=== PATIENT | female | born 1945 | race Caucasian/White ===

== ENCOUNTER → 2019-03-30 06:28 | Outpatient (CLI) | payer MEDICARE, SELFPAY ==
--- NOTE | 2019-03-30 06:33 | MRI_ITS ---
STUDY: MRA OF THE HEAD WITHOUT CONTRAST REASON FOR EXAM: Female, 74 years old. TECHNIQUE: 3-D [id number] (TOF) imaging was performed with MIPs. The study was performed unenhanced. COMPARISON: Recent MRI of the head obtained on 03/30/2019 FINDINGS: Normal bilateral petrous carotid arteries. Normal right cavernous carotid artery with a normal supraclinoid bifurcation. Normal left cavernous carotid artery with a normal supraclinoid bifurcation. Normal right A1 segments of the anterior cerebral artery. Normal left A1 segments of the anterior cerebral artery. Normal intact anterior communicating artery (ACOM). Normal bilateral A2 segments of the anterior cerebral arteries. Normal right M1 and M2 segments of the middle cerebral arteries, with a normal M1 bifurcation. Normal left M1 and M2 segments of the middle cerebral arteries, with a normal M1 bifurcation. Normal right posterior communicating artery (PCOM). Normal left posterior communicating artery (PCOM). Normal bilateral vertebral arteries. Normal basilar artery with a normal basilar bifurcation. The visualized bilateral superior cerebellar (SCA) arteries are normal. Normal bilateral P1, P2 and visualized P3 segments of the posterior cerebral arteries. There is no demonstrated aneurysm of the [place]. There is no major vessel occlusion or hemodynamically significant stenosis. There is no demonstrated abnormality of the visualized brain. MRI/MRA Head ONLY without Contrast IMPRESSION: Normal MRA of the head Electronically Signed: Saman Osuna, at 10:08 EDT Tel , Service support ,
--- NOTE | 2019-03-30 06:33 | MRI_ITS ---
STUDY: MRI CERVICAL SPINE WITHOUT CONTRAST REASON FOR EXAM: Female, 74 years old. Right-sided neck and shoulder pain/radiculopathy TECHNIQUE: Standardized fat and water weighted pulse sequences were obtained in the sagittal and axial planes. COMPARISON: None FINDINGS: Normal foramen magnum and brainstem-cervical cord junction. Normal craniovertebral junction. Normal anterior atlantoaxial articulation. Normal odontoid process. Normal cervical lordosis. Normal vertebral bodies and posterior osseous elements. C2-3: Normal endplates. Normal disc height, signal and morphology. Normal central canal and intervertebral neural foramina. C3-4: Normal endplates. Normal disc height, signal and morphology. Normal central canal and intervertebral neural foramina. C4-5: Normal endplates. Normal disc height, signal and morphology. Normal central canal and intervertebral neural foramina. C5-6: Normal endplates. Normal disc height, signal and morphology. Normal central canal and uncinate spondylosis and narrowing intervertebral neural foramina. C6-7: Normal endplates. Normal disc height, signal and morphology. Normal central canal and intervertebral neural foramina. C7-T1: Normal endplates. Normal disc height, signal and morphology. Normal central canal and intervertebral neural foramina. Normal cervical cord. Normal visualized soft tissue structures. IMPRESSION: Mild to moderate narrowing of the neural foramina bilaterally at C5-6 otherwise Normal unenhanced MR examination of the cervical spine. Electronically Signed: Pete Gongora MD at 19:25 EDT , Service support , MRI/Spine Cervical (Routine)
--- NOTE | 2019-03-30 06:33 | MRI_ITS ---
STUDY: MRI BRAIN WITH AND WITHOUT CONTRAST REASON FOR EXAM: Female, 74 years old. TECHNIQUE: Standardized multiplanar fat and water weighted pulse sequences were obtained. IV Dotarem 19 was administered for the contrast portion of the examination. COMPARISON: None. FINDINGS: The diffusion weighted axial images and ADC map images of the head show no evidence of restricted diffusion. The keke, medulla and midbrain and cerebellum appear to be normal. The ventricles and sulci are normal in size and shape. The cerebral hemispheres appear to be normal.The basal ganglia appear to be normal. No enhancing masses or lesions are seen. No evidence of a Chiari I malformation is identified. The V4 segments of the vertebral artery, the basilar artery, the posterior cerebral arteries, the cavernous and supraclinoid carotid arteries, and the M1 segments of the middle cerebral arteries are all normal The orbits including the optic nerves and optic chiasm appear normal. There is a 7.2 mm enhancing lesion seen in the right hand being consistent adjacent to the cisternal segment of the right 5th cranial nerve. This enhancing lesion is of uncertain etiology and could represent residual fibrosis from prior surgery or a residual meningioma surrounding the right 5th cranial nerve. The cisternal and intracanalicular portions of the right and left 7th and 8th cranial nerves are visualized and appear to be normal with no enhancing lesions seen. The cochlea vestibule and semicircular canals have normal T2 signal. The auditory axis including the ventral and dorsal cochlear nuclei, the trapezoid body, the lateral lemniscus, the inferior colliculus, the medial geniculate body, and the superior temporal gyri (Brodmann area 41,42) are all normal. The pituitary and pituitary infundibulum appear to be normal. The patient appears to have had a posterior right temporal craniotomy, with partial resection of the posterior right mastoid. The frontal, ethmoid, maxillary, and sphenoid sinuses are normal. The mastoid air cells are normal. MRI/Brain W/WO Contrast IMPRESSION: Status post right temporal craniotomy with an enhancing 7 mm lesion in the right ambient cistern adjacent to the cisternal segment of the right trigeminal nerve. Residual epidural fibrosis or a meningioma in this location could give this appearance.. Electronically Signed: Saman Osuna, at 9:33 EDT Tel , Service support ,
[2019-03-30 06:55] LABS: CREATININE FINGERSTICK 0.7 mg/dL (0.55-1.02); EGFR FINGERSTICK > 60.0000 mL/min (>60)
== END ==
PROVIDERS: Family Provider Family Medicine; PCP Family Medicine; Referring Provider Psychiatry & Neurology Neurology; Visit Provider Psychiatry & Neurology Neurology
DX: D32.9 Benign neoplasm of meninges, unspecified (principal); M54.12 Radiculopathy, cervical region; G50.0 Trigeminal neuralgia
CPT/HCPCS: 70544; 70553; 72141; A9575

== ENCOUNTER → 2019-12-06 11:04 | Outpatient (CLI) | payer MEDICARE, SELFPAY ==
--- NOTE | 2019-12-06 11:09 | RAD_ITS ---
STUDY: X-RAY - LUMBAR SPINE REASON FOR EXAM: Female, 74 years old. Back pain TECHNIQUE: 3 view(s) of the lumbar spine were obtained. COMPARISON: None FINDINGS: There is no evidence of fracture or dislocation in the lumbar spine. The vertebral body heights are well-maintained. There are mild multilevel degenerative changes with facet hypertrophy and disc space narrowing. RAD/Lumbar Spine 2 or 3 Views IMPRESSION: No fracture or dislocation in the lumbar spine. Mild degenerative change. Electronically Signed: Albert Izquierdo, at 17:03 EDT Tel , Service support ,
== END ==
PROVIDERS: PCP Family Medicine; Referring Provider Anesthesiology Pain Medicine; Visit Provider Anesthesiology Pain Medicine
DX: M54.9 Dorsalgia, unspecified (principal)
CPT/HCPCS: 72100

== ENCOUNTER 2020-05-13 10:00 | Outpatient (RCR) | payer MEDICARE, SELFPAY ==
--- NOTE | 2020-04-08 12:29 | HP.PTEVAL ---
Patient's Visit Information CHRIS OREILLY is a 75 year old F referred to Physical Therapy by Dr. Princess Yadav MD with a diagnosis of BACK PAIN AND LEG PAIN. Date of Evaluation: 04/08/20 Physical Therapist: Jeff Purdy, PT, Cert MDT, OCS - Visit Plan Frequency: 2x /Week Duration: 4 Weeks Plan: PT INTERVENTIONS DLS ,POSTURAL EX'S,BLE STRENGTHENING-HIP/QUADS/HAMS,FUNCTIONAL STRENGTHNING - Subjective This 75 y/o female presents to phsical therapy with back and leg pain. 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 Patient developed weakness and pain. Patient has had injection 2weeks. Patient located symmtrical lumbar pain with occassional leg pain. Aggraveting factors factors walking and standing affects endurance and function with ADLS.Alleviating factors sitting/resting. Patient symptoms better with rest. Denies paratghesia/tingling -. Bowel/bladder -. Coughing/sneexing. Occassional burning in feet.Patient seen DR Siddiqui for jaw. Patient symptoms afffects walking,standing and ADLS'. Patient symptoms affects QOL.MEDS : [employer]. SOCIAL:. VOCATION: retired - Objective POSTURE: rounded shoulders head foward ,mild foward posture. NEURO: denies parathesia/tingling,reflexes L3-4,L4-L5 ,L5 S1 1/3. SYMMTRIES: alighn. PALPTION: tender LS. MMT: 4-/5 quads/hams ,hip flexion 3+/5 ,abd 3+/5,ankle 5/5. LUMBAR ROM: flexiion min loss,extension mod loss,side glides min loss. FLEXABLITY: hamd min loss - Special Tests L/S Slump test left side: Negative L/S Slump test right side: Negative L/S Left Straight Leg Raise: Negative L/S Right Straight Leg Raise: Negative Lumbar Standing: Flexion - Mechanical Response: No effect Lumbar Standing: Flexion - Symptoms During Testing: No effect Lumbar Standing: Flexion - Symptoms After Testing: No effect Lumbar Standing: Extension - Mechanical Response: No effect Lumbar Standing: Extension - Symptoms During Testing: Increases Lumbar Standing: Extension - Symptoms After Testing: No worse Lumbar Standing: Right Side Glides - Mechanical Response: No effect Lumbar Standing: Right Side [place] - Symptoms During Testing: No effect Lumbar Standing: Right Side [place] - Symptoms After Testing: No effect Lumbar Standing: Left Side [place] - Mechanical Response: No effect Lumbar Standing: Left Side [place] - Symptoms During Testing: No effect Lumbar Standing: Left Side [place] - Symptoms After Testing: No effect - Goals Goal 1:: I with HEP Goal Time Frame: 4-6 Weeks Goal 2:: I with posture for ADLS 80 % of the time. Goal Time Frame: 4-6 Weeks Goal 3:: Patient decrease lumbar pain by 50% or > to improve QOL. Goal Time Frame: 4-6 Weeks Goal 4:: Patient to improve lubar ROM for function of recovery Goal Time Frame: 4-6 Weeks Goal 5:: Patient to increase strength of hip 4-/5 to improve gait and staning Goal Time Frame: 4-6 Weeks Goal 6:: Patient to improve back owestry by 5 points or > to inmprove QOL. Goal Time Frame: 4-6 Weeks - Rehabilitation Potential Physical Therapy Diagnosis: This patient developed low back pain with weakness spinal drain affects walking and standing with weakness in legs affects ADL's and housework tasks thus benifit from skilled PT Rehabilitation Potential: Good - Anticipated Interventions Patient/Client Instruction: Educate patient on: Condition, Plan of Care For the Purpose of:: To decrease pain, To increase ROM, To improve muscle performance and motor function, To improve ability to perform ADL's, To improve performance and independence with ADL's, To improve ability of physical actions for home/community/work/leisure, To improve health of tissue, To decrease soft tissue restriction, To increase flexibility/ROM, To reduce risk of recurrence, To improve ability to perform tasks related to life management Therapeutic Exercise to Include: Strength training, Endurance training, Postural training, Flexibilty training, Dynamic Lumbar Stabilization Comment: HIP/KNEES For the Purpose of:: To decrease pain, To increase ROM, To improve muscle performance and motor function, To increase tolerance to activity/condition/position, To improve performance and independence with ADL's, To improve ability of physical actions for home/community/work/leisure, To improve gait and locomotor functions, To improve health of tissue, To decrease soft tissue restriction, To increase flexibility/ROM, To improve endurance, To improve ability to perform tasks related to life management Thank you for the opportunity to evaluate your patient. For Medicare and Medicare HMO plans, please review the plan of care and approve it. It will need to be FAXED BACK to us at [phone] for Medicare purposes. For Medicare only, by signing this I certify the plan of care. Please let me know if there are questions or concerns regarding this plan of care. Physician Signature: Date:
--- NOTE | 2020-05-13 10:29 | HP.PTDCSUM ---
It has been my pleasure to treat CHRIS OREILLY referred by Dr. Princess Yadav MD, with the diagnosis of BACK PAIN AND LEG PAIN for a total of 7 visit(s). Discharge Date: 05/13/20 Please see the following information for a summary of their discharge status. Subjective: feeling better. Ready to be d/c . Today no pain . Pateint dioes get hip pain from stress. Walking make symptoms worse. Right Hip Pain Intensity (Out of 10): 0 % Improvement: 60 Objective/Function: POSTURE: mild fowars posture. GAIT: reciprocal pattern. SYMMTRIES: align. MMT: quads/hams 4/5 ,hip flexion 4-/5 andkle 4/5. LUMBAR ROM: flexion min loss ,extension mod loss Goal 1:: I with HEP Goal Progress: Goal Met Goal 2:: I with posture for ADLS 80 % of the time. Goal Progress: Goal Met Goal 3:: Patient decrease lumbar pain by 50% or > to improve QOL. Goal Progress: Goal Met Goal 4:: Patient to improve lubar ROM for function of recovery Goal Progress: Goal Met Goal 5:: Patient to increase strength of hip 4-/5 to improve gait and staning Goal Progress: Goal Met Goal 6:: Patient to improve back owestry by 5 points or > to inmprove QOL. Goal Progress: Goal Met Plan: d/c Discharge Comments: D/C TO HEP If there are questions or concerns regarding this patient's physical therapy, please feel free to call me at [phone]. Thank you for the referral of this patient. Sincerely, Jeff Purdy, PT, Cert MDT, OCS
== END 2020-05-13 19:00 | disposition home or self-care (01) ==
LOC: PT 10:00
PROVIDERS: PCP Family Medicine; Referring Provider Anesthesiology Pain Medicine; Visit Provider Anesthesiology Pain Medicine
DX: M54.9 Dorsalgia, unspecified (principal); M79.606 Pain in leg, unspecified
CPT/HCPCS: 97110; 97162

== ENCOUNTER → 2020-11-11 11:53 | Outpatient (CLI) | payer MEDICARE, SELFPAY ==
--- NOTE | 2020-11-11 11:56 | RAD_ITS ---
STUDY: X-RAY CHEST REASON FOR EXAM: Female, 75 years old. DYSPNEA TECHNIQUE: PA and lateral views of the chest. COMPARISON: None. FINDINGS: There is a focal infiltrate suggested within the lingula. There is no demonstrated pleural abnormality. Normal size heart. Normal mediastinum and miladis. Normal visualized pulmonary arteries. Normal visualized aortic arch and descending thoracic aorta. There are diffuse degenerative changes of the visualized thoracic spine. Normal visualized ribs, clavicles, and shoulders. There is no demonstrated abnormality of the visualized soft tissue structures of the upper abdomen. RAD/Chest PA and Lateral IMPRESSION: Suspect lingular infiltrate. Mild cardiomegaly. Electronically Signed: Cyndie Roldan MD at 7:54 EDT Tel , Service support ,
== END ==
PROVIDERS: PCP Family Medicine; Referring Provider Internal Medicine Pulmonary Disease; Visit Provider Internal Medicine Pulmonary Disease
DX: R06.00 Dyspnea, unspecified (principal)
CPT/HCPCS: 71046

== ENCOUNTER → 2020-12-05 12:51 | Outpatient (CLI) | payer MEDICARE, SELFPAY ==
--- NOTE | 2020-12-05 13:06 | CT_ITS ---
STUDY: CT CHEST WITHOUT CONTRAST REASON FOR EXAM: Female, 75 years old. DYSPNEA RADIATION DOSAGE (If Supplied By Facility): CTDIvol = ( 13.49 ) mGy, DLP = ( 421.95 ) mGycm TECHNIQUE: Transaxial imaging was performed without the administration of intravenous contrast material. Multiplanar coronal and sagittal images were reformatted. Individualized dose optimization techniques were used for this CT. COMPARISON: Comparison is made with prior chest radiograph dated 11/11/2020. FINDINGS: Mild degree of volume loss in the right middle lobe with the scarring. Increased markings in the anterior aspect of the left lower lobe suggestive of scarring. Calcified granulomas in the right lower lobe. There is no demonstrated pleural abnormality. There are calcifications of the coronary arteries. There are multiple small lymph nodes within the mediastinum, which are normal in size and morphology most compatible with reactive lymph hyperplasia. Calcified right hilar lymph nodes. Normal unenhanced pulmonary arteries. There is atherosclerotic calcification of the aortic arch with tortuosity and elongation of the aortic arch and descending thoracic aorta. There are multi-level degenerative changes of the thoracic spine. There is no demonstrated abnormality of the visualized upper abdomen. CT/Chest without Contrast IMPRESSION: Moderate loss in the right middle lobe with scarring. Findings suggestive of scarring in the lower lobes as well as in the anterior aspect of the left lower lobe. Calcified granulomas in the right lower lobe. Electronically Signed: Pascual Roque MD at 13:42 EDT , Service support ,
== END ==
PROVIDERS: PCP Family Medicine; Referring Provider Internal Medicine Pulmonary Disease; Visit Provider Internal Medicine Pulmonary Disease
DX: R06.00 Dyspnea, unspecified (principal)
CPT/HCPCS: 71250

== ENCOUNTER → 2020-12-31 09:34 | Outpatient (CLI) | payer MEDICARE, SELFPAY ==
--- NOTE | 2020-12-31 09:38 | ECHOCS_ITS ---
Reason For Study: DYSPNEA Procedure This was a 2D Doppler, Color Flow transthoracic echocardiogram. The study was technically difficult. Contrast injection was performed. Exam performed in department. Left Ventricle Normal LV size. Left ventricular systolic function is normal. The estimated ejection fraction is 65 %. No regional wall motion abnormalities noted. Right Ventricle Normal RV size. Normal systolic function. Atria The left atrium is mildly enlarged. Normal right atrium. No doppler evidence for ASD. Mitral Valve There is no mitral annular calcification. Normal mitral valve. Mild (1+) mitral valve insufficiency. Tricuspid Valve Normal tricuspid valve. Mild tricuspid valve insufficiency. Right ventricular systolic pressure estimated to be 40 mmHg. Aortic Valve The aortic valve is not well visualized. Pulmonic Valve The pulmonic valve is not well visualized. Great Vessels Normal sized aortic root. Pericardium/Pleural No pericardial effusion. Medication 22 gauge I.V. with prn adaptor inserted into right arm. Diluted definity 4ml given slow IV push to enhance endocardial definition. MMode/2D Measurements & Calculations RVDd: 4.2 cm Ao root diam: 3.5 cm LAV(MOD-bp): 49.1 ml LAV(MOD-bp) Indexed: 23.7 ml/m2 LAV(MOD-sp2): 53.3 ml LAV(MOD-sp4): 44.5 ml SV(MOD-sp4): 63.3 ml LVAd ap4: 29.6 cm2 LVAd ap2: 28.3 cm2 LVLd ap4: 7.8 cm LVLd ap2: 7.6 cm EDV(MOD-sp4): 91.8 ml EDV(MOD-sp2): 88.6 ml EDV(sp4-el): 95.3 ml EDV(sp2-el): 89.5 ml LVAs ap4: 14.5 cm2 LVAs ap2: 14.5 cm2 LVLs ap4: 6.3 cm LVLs ap2: 6.0 cm ESV(MOD-sp4): 28.5 ml ESV(MOD-sp2): 29.3 ml ESV(sp4-el): 28.5 ml ESV(sp2-el): 29.7 ml EF(MOD-sp4): 68.9 % EF(MOD-sp2): 67.0 % EF(sp4-el): 70.1 % SV(MOD-sp2): 59.3 ml SV(sp4-el): 66.9 ml LA A4 area: 17.3 cm2 LA dimension(2D): 3.3 cm RA A4 area: 16.7 cm2 Time Measurements MV dec time: 0.25 sec Doppler Measurements & Calculations MV E max jameel: 112.9 cm/sec Lat Peak E' Jameel: 5.0 cm/sec Med Peak E' Jameel: 5.0 cm/sec MV A max jameel: 103.9 cm/sec E/E' lat: 22.4 E/E' med: 22.7 MV E/A: 1.1 Ao V2 max: 122.3 cm/sec LV V1 max: 117.7 cm/sec PA V2 max: 80.7 cm/sec Ao max P.0 mmHg LV V1 max P.5 mmHg TR max jameel: 303.9 cm/sec TR max P.9 mmHg ECHO/Echo Complete W/ Contrast Interpretation Summary The study was technically difficult. Contrast injection was performed. Left ventricular systolic function is normal. The estimated ejection fraction is 65 %. The left atrium is mildly enlarged. Mild (1+) mitral valve insufficiency. Mild tricuspid valve insufficiency. Right ventricular systolic pressure estimated to be 40 mmHg. Transmitral diastolic flow velocities suggest diastolic dysfunction (pseudonorm al pattern). Ordering Physician: Tyler Singh Referring Physician: KENN BHATIA Performed By: Anika Cox, ROSANNE, RVT
== END ==
PROVIDERS: PCP Family Medicine; Referring Provider Internal Medicine Pulmonary Disease; Visit Provider Internal Medicine Pulmonary Disease
DX: R06.00 Dyspnea, unspecified (principal); I27.0 Primary pulmonary hypertension
CPT/HCPCS: 93306; Q9957; A4216; C8929; J3490

== ENCOUNTER → 2021-02-27 11:55 | Outpatient (CLI) | payer MEDICARE, SELFPAY ==
--- NOTE | 2021-02-27 12:00 | RAD_ITS ---
STUDY: X-RAY - LUMBAR SPINE REASON FOR EXAM: Female, 76 years old. BACK PAIN TECHNIQUE: 3 view(s) of the lumbar spine were obtained. COMPARISON: 12/06/2019 FINDINGS: Normal lumbar lordosis. There is no substantial scoliosis. There is a normal alignment of the vertebrae. There is diffuse demineralization with multi-level endplate spondylosis. Disc space narrowing with endplate sclerosis at L1-L2. Remaining disc heights are preserved. Moderate facet arthropathy at L4-L5 and L5-S1. There is no demonstrated fracture. There is atherosclerotic calcification of the abdominal aorta without a demonstrated aneurysm. RAD/Lumbar Spine 2 or 3 Views IMPRESSION: 1. Facet degenerative changes, as above. Stable. Electronically Signed: Cesar Gutierrez MD ([place]) at 15:29 EDT , Service support ,
--- NOTE | 2021-02-27 12:13 | RAD_ITS ---
STUDY: X-RAY - PELVIS REASON FOR EXAM: Female, 76 years old. RIGHT HIP PAIN TECHNIQUE: One view of the pelvis was obtained. COMPARISON: None. FINDINGS: There is a non-specific bowel gas pattern. Normal visualized soft tissue structures. There are multiple calcified phleboliths. There is narrowing with cortical sclerosis and osteophyte formation of the sacroiliac joint consistent with degenerative osteoarthritic changes. Normal visualized bilateral superior and inferior pubic rami. Normal pubic symphysis. Normal ischial tuberosities. Normal visualized right femoral head. Normal right acetabulum. Normal right hip joint. Normal visualized left femoral head. Normal left acetabulum. Normal left hip joint. 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 Electronically Signed: Cesar Gutierrez MD ([place]) at 15:30 EDT , Service support ,
== END ==
LOC: RAD 11:57
PROVIDERS: PCP Family Medicine; Referring Provider Anesthesiology Pain Medicine; Visit Provider Anesthesiology Pain Medicine
DX: M54.9 Dorsalgia, unspecified (principal)
CPT/HCPCS: 72100; 72170

== ENCOUNTER → 2021-04-14 06:02 | Outpatient (CLI) | payer MEDICARE, SELFPAY ==
--- NOTE | 2021-04-14 17:51 | STRESSREP_ITS ---
Stress Test Report Pharmacologic moderate cardial perfusion stress test. 76-year-old lady with a history of dyspnea. Stress protocol: Resting EKG demonstrates normal sinus rhythm with a rate of 70 bpm normal intervals are noted resting blood pressure is 120/74 mmHg. 0.4 mg of regadenoson was infused per usual protocol.Intravenous saline flush injection continuous EKG monitoring was performed. At rest there were no ST or T wave changes noted to suggest abnormal flow reserve and at peak infusion nonspecific ST changes were noted with did not meet the criteria for ischemia. No clinical angina was noted. The final blood pressure was 134/72 mmHg. Myocardial perfusion protocol. 11.8 mCi of technetium 99m sestamibi was injected at rest. 0.4 mg of regad enoson was infused per usual protocol. At peak infusion 34.7 mCi of technetium 99m sestamibi was injected stress images were obtained stress and rest images were reconstructed and compared in the short axis vertical long and horizontal long axis. Gated images were also obtained. Perfusion SPECT analysis: Review of the stress images demonstrate normal uptake of tracer noted in all areas of the myocardium. The resting images similarly demonstrate normal uptake of tracer noted in all areas of the myocardium. No areas of reversibility are noted to suggest ischemia. No previous infarct is noted. Gated SPECT analysis: The gated ejection fraction is over 60%. Conclusion: Normal pharmacologic myocardial perfusion stress test. Preserved ejection fraction.
== END ==
PROVIDERS: PCP Family Medicine; Referring Provider Internal Medicine Cardiovascular Disease; Visit Provider Internal Medicine Cardiovascular Disease
DX: R06.00 Dyspnea, unspecified (principal)
CPT/HCPCS: 78452; 93017; A9500; A4216; J2785

== ENCOUNTER → 2021-04-16 16:14 | Outpatient (CLI) | payer MEDICARE, SELFPAY ==
--- NOTE | 2021-04-16 16:20 | RAD_ITS ---
STUDY: X-RAY - PELVIS AND RIGHT HIP REASON FOR EXAM: Female, 76 years old. Hip pain. TECHNIQUE: 3 views of the pelvis and hip. COMPARISON: X-ray of the pelvis dated 02/27/2021. FINDINGS: There is a non-specific bowel gas pattern. Stable phleboliths. Osteopenia. Osteoarthrosis of the sacroiliac joints unchanged. Normal bilateral superior and inferior pubic rami. Stable arthrosis of the symphysis pubis. Normal bilateral ischial tuberosities. Mild arthrosis of both hips without osteophyte formation. 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 No acute abnormality, erosive changes or periostitis. Electronically Signed: Ritchie Maher MD at 9:16 EDT , Service support ,
== END ==
PROVIDERS: PCP Family Medicine; Referring Provider Anesthesiology Pain Medicine; Visit Provider Anesthesiology Pain Medicine
DX: M25.551 Pain in right hip (principal)
CPT/HCPCS: 73502

== ENCOUNTER 2021-04-19 07:35 | Emergency (ER) | payer MEDICARE, SELFPAY ==
[2021-04-19 07:36] VITALS: BP 153/80; PULSE 92; RESP 18; TEMP 36.6; O2SAT 99; BMI 32.5
--- NOTE | 2021-04-19 08:15 | EDS_ITS ---
HPI History of Present Illness Chief Complaint: Lower Extremity Injury Informant: patient Narrative Narrative: 76-year-old female arriving to the emergency department with chief complaint of right hip pain. Patient states that 5 days ago she was getting a stress test. She just received an injection she began to have pain in the right hip and the right thigh. 2 days later she went to see her pain management doctor and they obtained x-rays which revealed some arthritic changes. She states that she was prescribed Warnock and Zofran and an injection of a muscle relaxant. She states the pain has continued. She states that she spoke with her doctors they wanted to come to emergency last night. Though she does not have any change in her symptoms when I asked specifically what they do requested of the emergency department she stated that she thought she could get an MRI. She denies any neurologic deficits. No fevers or red flag history. No recent trauma. She has not seen any rash. The patient is unable to really describe the pain. She states it starts in the right low back wraps around the hip and goes almost to the foot anteriorly. Pain is worse with ambulation but also hurts at rest. [facility] Medical History Diverticulosis Essential hypertension Hyperlipidemia Hypothyroidism Meningioma, cerebral Obesity Obstructive sleep apnea Secondary pulmonary arterial hypertension Trigeminal neuralgia Home Medications levothyroxine 100 mcg capsule 100 mcg PO DAILY 04/01/21 [History Last Taken Unknown] montelukast 10 mg tablet 10 mg PO QHS 04/01/21 [History Last Taken Unknown] furosemide 40 mg tablet 40 mg PO BID tab 04/02/21 [History Last Taken Unknown] losartan 100 mg tablet 100 mg PO DAILY #60 tab 04/02/21 [Rx Last Taken Unknown] meloxicam 7.5 mg tablet 7.5 mg PO DAILY tab 04/02/21 [History Last Taken Unknown] pregabalin 100 mg capsule 100 mg PO Q6H cap 04/02/21 [History Last Taken Unknown] prednisone See Rx Instructions .ROUTE .COMPLEX #24 tablet 04/19/21 [Rx Last Taken Unknown] Allergy/AdvReac Type Severity Reaction Status Date / Time amoxicillin Allergy rash Verified 04/19/21 07:40 carbamazepine Allergy rash Verified 04/19/21 07:40 rofecoxib [From Vioxx] Allergy rash Verified 04/19/21 07:40 acetaminophen [From Percocet] AdvReac Vomiting Verified 04/19/21 07:40 codeine AdvReac vomiting Verified 04/19/21 07:40 fentanyl AdvReac Vomiting Verified 04/19/21 07:40 gabapentin [From Neurontin] AdvReac intolerance Verified 04/19/21 07:40 hydrocodone [From Vicodin] AdvReac Vomiting Verified 04/19/21 07:40 meperidine [From Demerol] AdvReac Vomiting Verified 04/19/21 07:40 oxycodone [From Percocet] AdvReac Vomiting Verified 04/19/21 07:40 topiramate [From Topamax] AdvReac intolerance Verified 04/19/21 07:40 tramadol AdvReac Vomiting Verified 04/19/21 07:40 Family History Mother CVA (cerebral vascular accident) Heart disease PPM Father Heart disease valve replacement, PPM Brother Heart disease Brother Heart disease Sister Heart disease Sister Colon cancer Sister Breast cancer Daughter Breast cancer Surgical History History of cataract surgery History of colonoscopy History of craniotomy (2010) [place] (trigeminal neuralgia) (2019) Social History Smoking Status: Never smoker alcohol intake: never ROS ROS ED Constitutional Constitutional ED: Denies chills, fever(s) or weight loss Eyes Eyes: Denies change in vision or diplopia ENT ENT ED: Denies ear pain, rhinorrhea or sore throat Cardiovascular Cardiovascular: Denies chest pain, orthopnea, palpitations or racing heartbeat Respiratory/Chest Respiratory/Chest: Denies cough, dyspnea or orthopnea Gastrointestinal Gastrointestinal: Denies abdominal pain, diarrhea, nausea or vomiting Genitourinary Genitourinary ED: Denies dysuria, hematuria or urinary frequency Musculoskeletal Musculoskeletal: Reports back pain and other Details: Right hip pain ; Denies arthralgias or myalgias Integumentary Denies abscess or rash Neurologic Neurologic: Denies headache(s) or weakness Psychiatric Psychiatric: Denies anxiety, depression, suicidal ideation or suicidal thoughts Endocrine Endocrinology: Denies polydipsia, polyphagia or polyuria Allergic/Immunologic Allergic/Immunologic ED: Denies mouth swelling, tongue swelling or urticaria EXAM Physical Exam Const Vital Signs: 04/19/21 07:36 Temperature 97.9 F Temperature Source Temporal Pulse Rate 92 Respiratory Rate 18 Blood Pressure 153/80 H Blood Pressure Mean 104 Pulse Ox 99 Oxygen Delivery Method Room Air Positive well nourished, well developed and obese General Appearance ED: well developed Nutritional Appearance: obese HEENT Reports normocephalic, head/scalp atraumatic, TM's clear and moist mucous membranes Negative for trauma Tympanic Membrane ED: Yes TM's clear Eyes PERRL and EOMs intact bilaterally Neck no lymphadenopathy, supple and no JVD Resp normal respiratory effort and clear to auscultation bilaterally Cardio regular rate, regular rhythm and no murmurs GI normal to inspection, nondistended, normoactive bowel sounds and non-tender Palpation: soft Back/Spine no CVA tenderness and normal ROM Back/Spine Narrative: Patient has focal tenderness near the right SI joint Extremity normal to inspection Extremity Narrative: Negative logroll. Negative piriformis stretch. General Extremety ED: Negative for edema General Extremity: Negative for edema Neuro oriented x3, CN's II-XII intact bilaterally and no sensory deficits noted Neuro Narrative: Normal DTR Sensorium / Orientation: alert Sensory Exam: No sensory level loss detected Motor Exam: strength 5/5 throughout; Negative for strength abnormal Psych mental status grossly normal Mood & Affect: Negative for depressed or tearful Skin no rashes or lesions noted and no wounds MDM MDM MDM Narrative Medical decision making narrative: Interpretation of the plain films of the lumbar spine is degenerative changes with some multilevel disc base narrowing. Patient is already on Warnock she is already on Lyrica as well as meloxicam. I can add in some prednisone. I think based on the exam she is more of a lumbar radiculopathy probably L2-L3 based on where she describes her symptoms wrapping to the leg. She would probably benefit from outpatient MRI. At this point I do not see any emergent reason for a emergent MRI. Patient to follow-up with her doctors this week Radiography Diagnostic Testing: Clinical Impression(s) from Imaging Studies Lumbar Spine X-Ray 04/19/21 08:22 IMPRESSION: Degenerative changes of the spine. Electronically Signed: Iban Smith MD at 8:36 EDT Tel , Service support , Discharge Plan Triage Chief Complaint: Lower Extremity Injury ED Provider: Chinedu Mayer Dx/Rx/DC Orders Clinical Impression: Lumbar radiculopathy, right Instructions: ED Sciatica Prescriptions: New prednisone 20 MG tablet See Rx Instructions .ROUTE .COMPLEX Qty: 24 RF: 0 No Action levothyroxine 100 mcg capsule 100 mcg PO DAILY RF: 0 montelukast [Singulair] 10 mg tablet 10 mg PO QHS RF: 0 furosemide [Lasix] 40 mg tablet 40 mg PO BID RF: 0 pregabalin [Lyrica] 100 mg capsule 100 mg PO Q6H RF: 0 meloxicam 7.5 mg tablet 7.5 mg PO DAILY RF: 0 losartan 100 mg tablet 100 mg PO DAILY Qty: 60 RF: 5 Primary Care Provider: Douglas Beauchamp Referrals: Princess Yadav MD [STAFF PHYSICIAN] - Keep Gerardo appointment Douglas Beauchamp MD [Primary Care Provider] - As Needed Disposition Disposition: Home, Self Care
--- NOTE | 2021-04-19 08:22 | RAD_ITS ---
STUDY: X-RAY - LUMBAR SPINE REASON FOR EXAM: Female, 76 years old. pain TECHNIQUE: 3 view(s) of the lumbar spine were obtained. COMPARISON: None FINDINGS: Normal lumbar lordosis. There is multilevel endplate spondylosis of the lumbar vertebrae. There is multi-level degenerative disc disease with multi-level disc space narrowing. The soft tissue structures are unremarkable. RAD/Lumbar Spine 2 or 3 Views IMPRESSION: Degenerative changes of the spine. Electronically Signed: Iban Smith MD at 8:36 EDT Tel , Service support ,
== END 2021-04-19 09:18 | disposition home or self-care (01) ==
PROVIDERS: Emergency Provider Emergency Medicine; PCP Family Medicine
DX: M54.16 Radiculopathy, lumbar region (principal); E66.9 Obesity, unspecified; G47.33 Obstructive sleep apnea (adult) (pediatric); E03.9 Hypothyroidism, unspecified; I10 Essential (primary) hypertension; Z79.899 Other long term (current) drug therapy
CPT/HCPCS: 72100; 99283

== ENCOUNTER → 2021-05-12 10:15 | Outpatient (CLI) | payer MEDICARE, SELFPAY ==
[2021-05-12 12:30] LABS: Anion Gap 4 (5-15); BNP,B-Type NATRIURETIC PEPTIDE 67.7 pg/mL (0-100); BUN 14 mg/dL (7-18); Calcium,Total 8.7 mg/dL (8.5-10.1); Chloride 104 mmol/L (98-107); EST Glomerular Filtration Rate 57 mL/min (>60); Est Glom Filt Rate - Afr Amer 69 mL/min (>60); Glucose 86 mg/dL (74-106); Potassium 3.9 mmol/L (3.5-5.1); Sodium Level 139 mmol/L (136-145)
== END ==
PROVIDERS: PCP Family Medicine; Referring Provider Nurse Practitioner Gerontology; Visit Provider Nurse Practitioner Gerontology
DX: R06.00 Dyspnea, unspecified (principal); R60.0 Localized edema
CPT/HCPCS: 36415; 80048; 83880

== ENCOUNTER 2021-06-26 10:42 | Outpatient (CLI) | payer MEDICARE, SELFPAY ==
[2021-06-26 11:19] LABS: Amphetamine Urine VISTA NEGATIVE (<1000 ng/mL); Barbiturate Urine VISTA NEGATIVE (< 200 ng/mL); Benzodiazepine Urine VISTA NEGATIVE (< 200 ng/mL); Cocaine Urine VISTA NEGATIVE (< 300 ng/mL); Ecstacy Urine VISTA NEGATIVE (< 500 ng/mL); Methadone Urine VISTA NEGATIVE (< 300 ng/mL); PCP Urine VISTA NEGATIVE (< 25 ng/mL); THC Urine VISTA NEGATIVE (< 50 ng/mL); Vista UDS pH Range 5
== END 2021-06-26 23:59 | disposition short-term general hospital (02) ==
LOC: LAB 10:44
PROVIDERS: PCP Family Medicine; Referring Provider Anesthesiology Pain Medicine; Visit Provider Anesthesiology Pain Medicine
DX: F11.20 Opioid dependence, uncomplicated (principal)
CPT/HCPCS: 80307

== ENCOUNTER 2021-08-25 09:45 | Day surgery (SDC) | payer MEDICARE, SELFPAY ==
[2021-08-22 10:07] VITALS: BMI 32.5
--- NOTE | 2021-08-22 13:58 | RAD_ITS ---
STUDY: X-RAY CHEST REASON FOR EXAM: Female, 76 years old. Preop for cardiac catheterization TECHNIQUE: PA and lateral views of the chest. COMPARISON: None. FINDINGS: There are interstitial fibrotic changes of the lungs. There is no demonstrated pleural abnormality. Normal size heart. Normal mediastinum and miladis. Normal visualized pulmonary arteries. Normal visualized aortic arch and descending thoracic aorta. There are diffuse degenerative changes of the visualized thoracic spine. There is degenerative osteoarthritis of the bilateral shoulders. There is no demonstrated abnormality of the visualized soft tissue structures of the upper abdomen. RAD/Chest PA and Lateral IMPRESSION: Degenerative changes, as described above. No demonstrated acute cardiopulmonary process. Electronically Signed: Delvis Hui MD at 15:14 EST ,
[2021-08-22 15:17] LABS: Absolute Lymphocyte Count 2.99 X10^3/uL (0.83-4.51); Absolute Neutrophil Count 4.3 X10^3/uL (2.0-7.7); Basophil# 0.05 X10^3/uL; Basophil% 0.6 % (0-1); Eosinophil# 0.08 X10^3/uL; Hematocrit 44.3 % (37-47); Hemoglobin 14.2 g/dL (12.0-15.0); Lymphocyte # 2.99 X10^3/ul (0.83-4.51); Mean Corp Hgb Conc 32.1 g/dL (32-36); Mean Corpuscular Hgb 29.5 pg (27.0-32.0); Mean Corpuscular Volume 92.1 fL (81-99); Mean Platelet Vol. 12.1 fl (6.2-12.0); Monocyte# 0.44 X10^3/uL; Monocyte% 5.6 % (0-10); NRBC Flagged by Analyzer 0 % (0-5); Neutrophil # 4.28 X10^3/uL (2.7-7.7); Neutrophil % 54.5 % (47-70); Platelet Count 222 K/mm3 (150-450); RBC Distribution Width CV 13.1 % (11.6-14.6); RBC Distribution Width SD 44.1 fl (35.1-43.9); Red Blood Count 4.81 M/mm3 (4.2-5.4); White Blood Count 7.9 K/mm3 (4.4-11.0)
[2021-08-22 15:23] LABS: Prothrombin Time (Protime)PT. 12.4 SECONDS (11.7-14.9)
[2021-08-22 15:35] LABS: Anion Gap 6 (5-15); BUN 15 mg/dL (7-18); BUN/Creat Ratio 15.1 RATIO (10-20); Calcium,Total 9.3 mg/dL (8.5-10.1); Chloride 105 mmol/L (98-107); EST Glomerular Filtration Rate 58 mL/min (>60); Est Glom Filt Rate - Afr Amer 70 mL/min (>60); Estimated Creatinine Clearance 50.02 ml/min; Glucose 93 mg/dL (74-106); Potassium 3.9 mmol/L (3.5-5.1); Sodium Level 141 mmol/L (136-145)
--- NOTE | 2021-08-25 10:03 | EKG12_ITS ---
Test Reason : PRE CATH Blood Pressure : / mmHG Vent. Rate : 096 BPM Atrial Rate : 096 BPM P-R Int : 164 ms QRS Dur : 078 ms QT Int : 342 ms P-R-T Axes : 063 -37 051 degrees QTc Int : 432 ms Normal sinus rhythm Left axis deviation Nonspecific ST abnormality Abnormal ECG No previous ECGs available Confirmed by KAT KING, TOM ([id number]), television news video editor BHANU CHAMPION ([id number]) on 08/25/2021 2:25:00 PM Referred By: Tom Varela Confirmed By:TOM VARELA MD
[2021-08-25 11:36] LABS: Base Excess 3 mmol/L (-2 to +2); Bicarbonate 27.1 mmol/L (22-26); Blood Gas Specimen Type ART; Blood Gas Specimen Type VEN; PO2 62 mmHG (75-100); SO2 91 % (95-99); Total Carbon Dioxide 28 mmol/L; VBG BASE EXCESS 4 mmol/L (-1.0-3.5); VBG Bicarbonate 29 mmol/L (22-26); VBG PO2 37 mmHg (25-40); VBG SO2 69 % (50-70); VBG TCO2 30 mmol/L (23-33); VBG pCO2 48.4 mmHg (41-51); VBG pH 7.38 (7.32-7.42); pCO2 42.9 mmHg (35-45); pH 7.41 (7.35-7.45)
[2021-08-25 11:46] LABS: Blood Gas Specimen Type VEN; VBG BASE EXCESS 3 mmol/L (-1.0-3.5); VBG Bicarbonate 28 mmol/L (22-26); VBG PO2 38 mmHg (25-40); VBG SO2 70 % (50-70); VBG TCO2 29 mmol/L (23-33); VBG pH 7.39 (7.32-7.42)
--- NOTE | 2021-09-01 08:09 | CL.D_ITS ---
Patient Name: CHRIS OREILLY Study Date: 08/25/2021 Performing: Tom Varela MD Ht: 69 inches 175 cm : 1945 Wt: 220.8 lbs 100 kg Age: 76 Gender: female BSA: 2.15 PROCEDURE(S) PERFORMED [id number])RHC/LHC/COR/LV CLINICAL PROFILE AND INDICATIONS Indications: Other Heart Failure: None Stress/Imaging Stress/Image Study Performed: No CAD Presentations: Other: sob CONCLUSIONS Normal coronary arteries Normal LV size, wall motion,and systolic function Right heart pressures - mildly elevated RECOMMENDATIONS Medical therapy DESCRIPTION OF PROCEDURE The patient arrived to the procedure lab. The risks and benefits of the procedure as well as a full d escription of our services here and current unavailability of surgical backup were fully explained to the patient and/or their significant other prior to the catheterization. The Timeout was completed, verifying the correct patient and procedure. The patient's procedural site was prepped and draped in the usual fashion. Local anesthetic was given subcutaneously to right groin region with Lidocaine 2%. Local anesthetic was given subcutaneously to right radial region with Lidocaine 2%. Using a modified Seldinger technique, arterial access was obtained via the right radial artery, a 6Fr sheath was inse rted. Venous access was obtained via the right femoral vein, a 7Fr sheath was inserted. Left Coronary Artery selective angiography was performed in multiple views using a 5 Fr. 4.0 Circle catheter. Right Coronary Artery selective angiography was then performed in multiple views using a 5 Fr. 4.0 Circle catheter. Left Ventriculography was performed in GASPAR projection using a [address] LV to AO pullback pressures were then recorded. A 7Fr thermal dilution catheter was inserted and right heart pressures were recorded, it was then advanced to PA position for cardiac outputs. O2 sat urations were then obtained. The Thermal dilution catheter was then removed.The arterial sheath was p ulled and a TR Band was applied for hemostasis. The venous sheath was then pulled and manual compress ion applied until hemostasis achieved CORONARY ANGIOGRAPHY DOMINANCE: Right Dominant LEFT HEART ASSESSMENT Left Ventricular Ejection Fraction: by LV Gram 65 % Normal LV wall motion Normal Left Ventricular systolic function Normal Left Ventricular systolic function RIGHT HEART ASSESSMENT Thermal CO: 6.63 Thermal CI: 3.08 Fanny CO: 7.05 Fanny CI: 3.28 PW: 23 PA: 41/20 29 RV: 43/7 17 RA: 16/15 13 PVR: 72 SVR: 905 Right Heart pressures - elevated LEFT MAIN: Angiographically normal LEFT ANTERIOR DESCENDING ARTERY: Angiographically normal CIRCUMFLEX ARTERY: Angiographically normal RIGHT CORONARY ARTERY: Angiographically normal COMPLICATIONS No Complications PROCEDURE MEDICATIONS Versed 2 mg IV Versed 1 mg IV Baby Aspirin (81mg) 1 Tabs PO @ 08/25/2021 10:09:07 SUMMARY OF HEMODYNAMIC DATA Time AIR REST ECG 10:05:25 ECG 10:38:40 AO 116/67 (88) SA 11:18:06 LV 119/14, 21 11:24:23 LV 116/14, 23 11:24:29 LV 125/17, 25 11:25:22 LV 109/17, 23 11:25:28 LVp 109/15, 20 11:25:33 AOp 117/67 (90) 11:25:38 RA 16/15 (13) SV 11:28:48 RV 43/7, 17 11:29:01 PW (23) PV 11:29:21 PA 41/20 (29) PA 11:29:35 PA 44/10 (26) 11:32:05 RA 18/18 (14) 11:32:25 Type SV CO (l/m) CI (l/m/ HR Time AIR REST Thermal 69.10 6.63 3.08 96 10:05:25 Fanny 73.40 7.05 3.28 96 10:05:25 Label % O2 Pres/Loc Time AIR REST AO 91 PV 11:38:35 PA 69 PA 11:38:40 RA 70 SV 11:38:50 Signed By Tom Varela MD On 09/01/2021 08:08:33 Tom Varela MD
== END 2021-08-25 23:59 | disposition home or self-care (01) ==
LOC: CLSP 09:50
PROVIDERS: Nurse Practitioner Gerontology; PCP Family Medicine; Referring Provider Internal Medicine Cardiovascular Disease; Visit Provider Internal Medicine Cardiovascular Disease
DX: I25.10 Atherosclerotic heart disease of native coronary artery without angina pectoris (principal); R06.02 Shortness of breath; I10 Essential (primary) hypertension; E03.9 Hypothyroidism, unspecified; G47.33 Obstructive sleep apnea (adult) (pediatric); Z79.82 Long term (current) use of aspirin; Z79.899 Other long term (current) drug therapy
CPT/HCPCS: 36415; 71046; 80048; 82803; 85025; 85610; 85730; 93005; 93460; 99152; 99153; J7040; A4216; C1751; C1769; C1894; Q9967

== ENCOUNTER → 2021-11-10 | Outpatient (CLI) | payer MEDICARE, SELFPAY ==
--- NOTE | 2021-11-10 11:12 | RAD_ITS ---
STUDY: X-RAY - LEFT SHOULDER REASON FOR EXAM: Female, 76 years old. Left shoulder pain. TECHNIQUE: 4 view(s) of the shoulder. COMPARISON: None. FINDINGS: Osteopenia. Moderate arthrosis of the glenohumeral joint. Mild arthrosis of the AC joint. Normal humeral head and visualized proximal humerus. Calcific tendinitis. Normal visualized pulmonary apex. RAD/Shoulder min 2 Views IMPRESSION: Osteopenia with arthrosis of the glenohumeral and acromioclavicular joints. Calcific tendinitis. No acute abnormality or erosive changes. Electronically Signed: Ritchie Maher MD at 11:56 EDT ,
== END | disposition home or self-care (01) ==
LOC: RAD 11:10
PROVIDERS: PCP Family Medicine; Referring Provider Anesthesiology Pain Medicine; Visit Provider Anesthesiology Pain Medicine
DX: M25.512 Pain in left shoulder (principal)
CPT/HCPCS: 73030

== ENCOUNTER → 2022-05-21 | Outpatient (CLI) | payer MEDICARE, SELFPAY ==
[2022-05-21 10:40] LABS: Absolute Lymphocyte Count 2.16 X10^3/uL (0.83-4.51); Basophil# 0.04 X10^3/uL; Basophil% 0.6 % (0-1); Eosinophil# 0.14 X10^3/uL; Eosinophils% 2.1 % (0-5); Hematocrit 42.1 % (37-47); Lymphocyte # 2.16 X10^3/ul (0.83-4.51); Lymphocyte % 31.7 % (19-41); Mean Corp Hgb Conc 30.9 g/dL (32-36); Mean Corpuscular Hgb 28.4 pg (27.0-32.0); Mean Corpuscular Volume 91.9 fL (81-99); Mean Platelet Vol. 12.1 fl (6.2-12.0); Monocyte# 0.48 X10^3/uL; NRBC Flagged by Analyzer 0 % (0-5); Neutrophil # 3.97 X10^3/uL (2.7-7.7); Neutrophil % 58.3 % (47-70); Platelet Count 177 K/mm3 (150-450); RBC Distribution Width CV 13.7 % (11.6-14.6); RBC Distribution Width SD 46.6 fl (35.1-43.9); Red Blood Count 4.58 M/mm3 (4.2-5.4); White Blood Count 6.8 K/mm3 (4.4-11.0)
[2022-05-21 11:05] LABS: BNP,B-Type NATRIURETIC PEPTIDE 16.5 pg/mL (0-100)
[2022-05-21 11:17] LABS: Anion Gap 6 (5-15); BUN 22 mg/dL (7-18); BUN/Creat Ratio 24.1 RATIO (10-20); Calcium,Total 9.1 mg/dL (8.5-10.1); Chloride 105 mmol/L (98-107); Creatinine, Serum 0.91 mg/dL (0.55-1.02); EST Glomerular Filtration Rate 63 mL/min (>60); Est Glom Filt Rate - Afr Amer 77 mL/min (>60); Glucose 103 mg/dL (74-106); Potassium 3.8 mmol/L (3.5-5.1); Sodium Level 143 mmol/L (136-145)
== END | disposition home or self-care (01) ==
LOC: LABSPEC 09:52 → LAB 09:58
PROVIDERS: PCP Family Medicine; Visit Provider Nurse Practitioner Gerontology
DX: R06.00 Dyspnea, unspecified (principal)
CPT/HCPCS: 36415; 80048; 83880; 85025

== ENCOUNTER 2022-08-30 13:06 | Inpatient (IN) | payer MEDICARE, SELFPAY ==
[2022-08-30 13:07] VITALS: BP 181/79; PULSE 117; RESP 18; TEMP 36.2; O2SAT 98; BMI 31.9
[2022-08-30 13:30] VITALS: BP 158/79; PULSE 100; RESP 18; TEMP 36.4; O2SAT 98
--- NOTE | 2022-08-30 13:42 | US_ITS ---
PROCEDURE: ABDOMINAL ULTRASOUND, RIGHT UPPER QUADRANT COMPARISONS: None. CLINICAL INDICATION: PAIN TECHNIQUE: Real-time [place]-scale abdominal ultrasound. Limited color Doppler evaluation is performed. FINDINGS: Liver: Enlarged to 22 cm with diffusely increased echotexture. Normal portal venous blood flow. Gallbladder: Normal wall thickness. Multiple shadowing gallstones. No pericholecystic fluid. Sonographic Reveles''s sign reported negative. Distended to 10.4 cm. Biliary Tree: Nondilated. Common bile duct measures 6 mm. Pancreas: Limited evaluation of the head and body is unremarkable. Right kidney: Normal in size and echogenicity. No hydronephrosis or stones. The right kidney measures 12.2 cm in long axis. No free fluid. US/Gallbladder IMPRESSION: Cholelithiasis with nonspecific distention. No sonographic findings of acute cholecystitis. Enlarged fatty liver. Electronically Signed: Corbin Valiente MD at 17:27 EDT ,
--- NOTE | 2022-08-30 13:43 | EDS_ITS ---
HPI HPI - GI History of Present Illness Chief Complaint: Abd Pain Informant: patient Abdominal Pain/Flank Pain Onset: Yesterday Context: Gradual Onset (about 2 hrs after eating chili for dinner) Timing: Continuous Quality: Aching Location: - (across upper abd) Current Severity: Severe Maximum Severity: Severe Worsened by: Nothing Relieved by: Nothing Nausea/Vomiting/Emesis GI Symptom: Positive for Nausea and Vomiting Onset: Today Diarrhea/Melena/Hematochezia GI Symptom: Negative for Diarrhea, Melena or Hematochezia Associated Symptoms Associated Symptoms: Negative for Dysuria, Frequency or Hematuria Narrative Narrative: Patient ate chili for dinner last night and a couple hours later started getting diffuse upper abdominal pain that has been worsening, it is not necessarily colicky, she has had nausea and vomiting. No history of any abdominal surgeries in the past. 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 It is a little more uncomfortable to take deep breaths but she does not have lateralizing pain with doing so nor does she have discomfort in her chest or back. The pain radiates in a bandlike distribution around to her sides. No lower abdominal pain. No distention, she states her abdomen is its usual size. [facility] Medical History Diverticulosis Essential hypertension Hyperlipidemia Hypothyroidism Meningioma, cerebral Obesity Obstructive sleep apnea Secondary pulmonary arterial hypertension Trigeminal neuralgia Home Medications pregabalin 100 mg capsule (Lyrica) 100 mg PO TID 05/12/21 [History Last Taken Unknown] montelukast 10 mg tablet (Singulair) 10 mg PO QHS 08/13/21 [History Last Taken Unknown] multivitamin (Daily Multi-Vitamin tablet) 1 tab PO DAILY 08/13/21 [History Last Taken Unknown] furosemide 40 mg tablet (Lasix) 40 mg PO BID 11/11/21 [History Last Taken Unknown] levothyroxine 100 mcg tablet 100 mcg PO DAILY 11/11/21 [History Last Taken Unknown] losartan 100 mg tablet 100 mg PO DAILY #90 tabs 03/30/22 [Rx Last Taken Unknown] Allergy/AdvReac Type Severity Reaction Status Date / Time amoxicillin Allergy rash Verified 08/30/22 13:30 carbamazepine Allergy rash Verified 08/30/22 13:30 rofecoxib [From Vioxx] Allergy rash Verified 08/30/22 13:30 acetaminophen [From Percocet] AdvReac Vomiting Verified 08/30/22 13:30 codeine AdvReac vomiting Verified 08/30/22 13:30 fentanyl AdvReac Vomiting Verified 08/30/22 13:30 gabapentin [From Neurontin] AdvReac intolerance Verified 08/30/22 13:30 hydrocodone [From Vicodin] AdvReac Vomiting Verified 08/30/22 13:30 meperidine [From Demerol] AdvReac Vomiting Verified 08/30/22 13:30 oxycodone [From Percocet] AdvReac Vomiting Verified 08/30/22 13:30 topiramate [From Topamax] AdvReac intolerance Verified 08/30/22 13:30 tramadol AdvReac Vomiting Verified 08/30/22 13:30 Family History (Reviewed 05/21/22 @ 09:26 by Sarah Kasper [employer]VIS[employer], SU[employer]OR [employer]-C) Mother CVA (cerebral vascular accident) Heart disease PPM Father Heart disease valve replacement, PPM Brother Heart disease Brother Heart disease Sister Heart disease Sister Colon cancer Sister Breast cancer Daughter Breast cancer Surgical History (Reviewed 05/21/22 @ 09:26 by Sarah Kasper [employer], SUPER[employer]-C) History of cataract surgery History of colonoscopy History of craniotomy (2010) History of right and left heart catheterization (09/01/21) [place] (trigeminal neuralgia) (2019) Social History Smoking Status: Never smoker alcohol intake: never substance use type: does not use caffeine: Yes Type: coffee Number of servings: 4 ROS ROS ED Constitutional Constitutional ED: Denies chills or fever(s) Eyes Eyes: Denies change in vision or diplopia ENT ENT ED: Denies rhinorrhea or sore throat Cardiovascular Cardiovascular: Denies chest pain or palpitations Respiratory/Chest Respiratory/Chest: Reports dyspnea on exertion; Denies cough or dyspnea Gastrointestinal Gastrointestinal: Reports as per HPI, abdominal pain, nausea and vomiting; Denies diarrhea Genitourinary Genitourinary ED: Denies dysuria or hematuria Musculoskeletal Musculoskeletal: Denies back pain or neck pain Integumentary Denies abscess or rash Neurologic Neurologic: Denies headache(s), paresthesias or weakness Psychiatric Psychiatric: Denies anxiety or suicidal thoughts EXAM Physical Exam Const Vital Signs: 08/30/22 13:07 08/30/22 13:30 08/30/22 17:16 Temperature 97.2 F L 97.6 F L Temperature Source Temporal Temporal Pulse Rate 117 H 100 78 Respiratory Rate 18 18 16 Blood Pressure 181/79 H 158/79 H 131/68 H Blood Pressure Mean 113 105 89 Pulse Ox 98 98 96 Oxygen Delivery Method Room Air Room Air Room Air 08/30/22 19:08 Temperature Temperature Source Pulse Rate Respiratory Rate Blood Pressure 122/59 H Blood Pressure Mean 80 Pulse Ox Oxygen Delivery Method Positive well nourished and well developed General Appearance ED: well developed and NAD HEENT Reports moist mucous membranes normocephalic and atraumatic Eyes PERRL and EOMs intact bilaterally Neck full ROM and supple Resp normal respiratory effort and clear to auscultation bilaterally Cardio regular rate, regular rhythm and no murmurs GI non-distended GI Narrative: Abdominal obesity. Very tender in both right upper and left upper quadrants less in the epigastrium. No guarding or rebound. No tenderness elsewhere. Auscultation: normoactive bowel sounds Palpation: soft Back/Spine no CVA tenderness General Back: other FROM Extremity normal to inspection General Extremety ED: Negative for edema, pulses abnormal or tenderness General Extremity: Negative for edema or pulses abnormal Neuro oriented x3, CN's II-XII intact bilaterally and no sensory deficits noted Sensorium / Orientation: awake and alert Motor Exam: strength 5/5 throughout Skin no rashes or lesions noted and no wounds MDM MDM MDM Narrative Medical decision making narrative: Concern is for early acute cholecystitis in this 77-year-old female who has never had any abdominal surgeries. Also in the differential is a perforated viscus although less likely. She has had no hematemesis. I did obtain a portable chest x-ray to evaluate for free air, on my interpretation there is none, and she has no other acute cardiopulmonary abnormality on the chest x-ray, chronic changes are noted. Labs took time. Patient is a very difficult stick, nurses were unable to get a small IV in her right shoulder, but after trying approximately 12 times, they ceased further attempts. I did femoral stick for blood see the procedure note. Labs are noted. I obtained a CT as well, I saw the images and agree with the radiologist interpretation, same with the right upper quadrant ultrasound. Not able to rule out choledocholithiasis with the labs, so I am giving her a dose of cefuroxime since she has a history of penicillin allergy and plan is admission. Lab Data Attestation: I reviewed the patient's lab results. Labs: Laboratory Results - last 24 hr 08/30/22 08/30/22 08/30/22 15:28 15:28 16:27 WBC 7.9 RBC 4.99 Hgb 14.1 Hct 44.9 MCV 90.0 MCH 28.3 MCHC 31.4 L RDW Std Deviation 44.9 H RDW Coeff of Rajinder 13.7 Plt Count Immature Gran % (Auto) 0.400 Neut % (Auto) 69.2 Lymph % (Auto) 24.3 [place] % (Auto) 5.6 Eos % (Auto) 0.1 Baso % (Auto) 0.4 Absolute Neuts (auto) 5.5 Absolute Lymphs (auto) 1.92 Nucleated RBC % 0 Differential Comment SCANNED Platelet Estimate ADEQUATE Sodium Cancelled Cancelled Potassium Cancelled Cancelled Chloride Cancelled Cancelled Carbon Dioxide Cancelled Cancelled Anion Gap Cancelled Cancelled BUN Cancelled Cancelled Creatinine Cancelled Cancelled Estim Creat Clear Calc Cancelled Cancelled Est GFR (MDRD) Af Amer Cancelled Cancelled Est GFR (MDRD) Non-Af Cancelled Cancelled BUN/Creatinine Ratio Cancelled Cancelled Glucose Cancelled Cancelled Calcium Cancelled Cancelled Total Bilirubin Cancelled Cancelled AST Cancelled Cancelled ALT Cancelled Cancelled Alkaline Phosphatase Cancelled Cancelled Total Protein Cancelled Cancelled Albumin Cancelled Cancelled Globulin Cancelled Cancelled Albumin/Globulin Ratio Cancelled Cancelled Lipase Cancelled Cancelled Urine Color Urine Clarity Urine pH Ur Specific [place] Urine Protein Urine Glucose (UA) Urine Ketones Urine Occult Blood Urine Nitrite Urine Bilirubin Urine Urobilinogen Ur Leukocyte Esterase Urine RBC Urine WBC Ur Squamous Epith Cells Urine Bacteria Urine Mucus 08/30/22 08/30/22 17:02 18:25 WBC RBC Hgb Hct MCV MCH MCHC RDW Std Deviation RDW Coeff of Rajinder Plt Count Immature Gran % (Auto) Neut % (Auto) Lymph % (Auto) [place] % (Auto) Eos % (Auto) Baso % (Auto) Absolute Neuts (auto) Absolute Lymphs (auto) Nucleated RBC % Differential Comment Platelet Estimate Sodium 143 Potassium 4.2 Chloride 107 Carbon Dioxide 28.0 Anion Gap 8 BUN 16 Creatinine 0.96 Estim Creat Clear Calc 51.29 Est GFR (MDRD) Af Amer 73 Est GFR (MDRD) Non-Af 60 BUN/Creatinine Ratio 16.7 Glucose 121 H Calcium 8.2 L Total Bilirubin 1.40 H AST 715 H ALT 566 H Alkaline Phosphatase 112 Total Protein 6.3 L Albumin 3.2 Globulin 3.1 Albumin/Globulin Ratio 1.0 Lipase 81031 H Urine Color Yellow Urine Clarity Clear Urine pH 8.0 Ur Specific [place] 1.015 Urine Protein Negative Urine Glucose (UA) Normal Urine Ketones Negative Urine Occult Blood Negative Urine Nitrite Negative Urine Bilirubin Negative Urine Urobilinogen Normal Ur Leukocyte Esterase 25 H Urine RBC 0 SEEN Urine WBC 0 SEEN Ur Squamous Epith Cells 0 SEEN Urine Bacteria 0 SEEN Urine Mucus 0 SEEN Radiography Diagnostic Testing: Clinical Impression(s) from Imaging Studies Gallbladder Ultrasound 08/30/22 13:42 IMPRESSION: Cholelithiasis with nonspecific distention. No sonographic findings of acute cholecystitis. Enlarged fatty liver. Electronically Signed: Corbni Valiente MD at 17:27 EDT , Chest X-Ray 08/30/22 15:10 IMPRESSION: No radiographic evidence of acute cardiopulmonary disease. Electronically Signed: Corbin Valiente MD at 15:55 EDT , Abdomen/Pelvis CT 08/30/22 17:58 IMPRESSION: Finding consistent with acute interstitial edematous pancreatitis. Electronically Signed: Corbin Valiente MD at 19:04 EDT , Management Discussion w/another healthcare provider: Hospitalist and City Comptroller (Dr. Mendenhall [facility], Dr. Jean-Baptiste surgery) Procedures Other Procedures Procedure(s): Right femoral venipuncture for blood sampling/labs: Via ultrasound guidance and visualization under Doppler, visualizing and palpating the femoral artery and the vein just medial to this, sterilizing locally with Betadine, locally anesthetized and subcutaneously with 3 cc of plain 1% lidocaine, followed by venipuncture with 18-gauge, aspirating 5 cc of dark red nonpulsatile blood, withdrawing the needle and applying pressure. Patient was asymptomatic throughout all of this without any pain tolerated well no complications, pressure held no bleeding. Discharge Plan Dx/Rx/DC Orders Clinical Impression: Acute biliary pancreatitis, Cholelithiasis, Elevated liver enzymes Disposition Disposition: Acute Care Hospital [facility]
[2022-08-30] MEDS: 0.9% Normal Saline 1,000 ML 125 ML IV (14:49)
[2022-08-30] MEDS: Morphine 4 MG/ML Syringe IV ×2 (14:50→16:36)
[2022-08-30] MEDS: Ondansetron 4 MG/2 ML Vial IV (14:50)
--- NOTE | 2022-08-30 15:10 | RAD_ITS ---
INDICATION: chronic sob, upper abd pain EXAMINATION/TECHNIQUE: X-RAY - portable upright AP chest x-ray COMPARISON: 08/22/2021 FINDINGS: LINES/DEVICES: None. LUNGS: Stable fibrosis bilateral lung garcia. No vascular congestion, consolidations or pleural effusions. MEDIASTINUM AND CARDIOVASCULAR STRUCTURES: Cardiac silhouette not enlarged. Central airways and mediastinal contour are unremarkable. BONES AND SOFT TISSUES: No acute changes. RAD/Chest 1 View (Portable) IMPRESSION: No radiographic evidence of acute cardiopulmonary disease. Electronically Signed: Corbin Valiente MD at 15:55 EDT ,
[2022-08-30 15:35] LABS: Absolute Lymphocyte Count 1.92 X10^3/uL (0.83-4.51); Absolute Neutrophil Count 5.5 X10^3/uL (2.0-7.7); Basophil# 0.03 X10^3/uL; Basophil% 0.4 % (0-1); Eosinophil# 0.01 X10^3/uL; Eosinophils% 0.1 % (0-5); Hematocrit 44.9 % (37-47); Hemoglobin 14.1 g/dL (12.0-15.0); Lymphocyte # 1.92 X10^3/ul (0.83-4.51); Lymphocyte % 24.3 % (19-41); Mean Corp Hgb Conc 31.4 g/dL (32-36); Mean Corpuscular Hgb 28.3 pg (27.0-32.0); Monocyte# 0.44 X10^3/uL; Monocyte% 5.6 % (0-10); NRBC Flagged by Analyzer 0 % (0-5); Neutrophil # 5.48 X10^3/uL (2.7-7.7); Neutrophil % 69.2 % (47-70); POSITIVE COUNT YES; RBC Distribution Width CV 13.7 % (11.6-14.6); RBC Distribution Width SD 44.9 fl (35.1-43.9); Red Blood Count 4.99 M/mm3 (4.2-5.4); White Blood Count 7.9 K/mm3 (4.4-11.0)
[2022-08-30 16:05] LABS: Differential Indicated SCAN CRITERIA MET
[2022-08-30 16:06] LABS: Differential Comment SCANNED; Platelet Estimate ADEQUATE (ADEQ)
--- NOTE | 2022-08-30 17:02 | ED.RN ---
LAB CALLED, UNABLE TO PROCESS LATEST BLOOD SAMPLE. DR HUBER AWARE. WILL AWAIT THE RESULTS OF GALLBLADDER ULTRASOUND BEFORE PROCEEDING
[2022-08-30 17:09] LABS: Bacteria 0 SEEN /hpf (None Seen); Mucous, Urine 0 SEEN /hpf (<or=2+); Red Blood Cells-Urine 0 SEEN /hpf (0-5); Squamous Epithelial Cells - UA 0 SEEN /hpf (5-10); White Blood Cells 0 SEEN /hpf (0-5)
[2022-08-30 17:11] LABS: Color, Urine Yellow (Yellow); Glucose, Dipstick Normal (Normal); Ketone-Dipstick Negative (Negative); Leukocyte Esterase-Dipstick 25 /ul (Negative); Nitrite-Dipstick Negative (Negative); Occult Blood-Urine Negative /ul (Negative); Protein-Dipstick Negative (Negative); Specific Gravity, Urine 1.015 (1.002-1.030); Urine Bilirubin Dipstick Negative (Negative); Urine Clarity Clear (Clear); Urine Urobilinogen Normal (Normal)
[2022-08-30 17:16] VITALS: BP 131/68; PULSE 78; RESP 16; O2SAT 96
--- NOTE | 2022-08-30 17:58 | CT_ITS ---
INDICATION: upper abd pain EXAMINATION: CT ABDOMEN AND PELVIS WITHOUT CONTRAST - CT Abdomen And Pelvis W/O Contrast Injection TECHNIQUE: Helically acquired images were obtained of the abdomen and pelvis without oral or IV contrast. A radiation dose optimization technique was used for this scan. IV Contrast dosage and agent: None. Oral contrast: None. COMPARISON: Gallbladder ultrasound same date FINDINGS: LOWER CHEST: Calcified granulomas right lung base. Dependent and/or fibrotic changes. No cardiomegaly or pericardial effusion. LIVER: Enlargement to 19 cm. No focal mass. GALLBLADDER AND BILIARY TREE: Calcified gallstone. No gallbladder distension or wall edema. No intra- or extrahepatic biliary ductal dilation. PANCREAS: Peripancreatic fat stranding without fluid collection necrosis. SPLEEN: Normal size without focal cystic or solid mass. ADRENAL GLANDS: No nodules. KIDNEYS AND URETERS: Left cortical cyst. No hydronephrosis. PERITONEUM: Trace pelvic ascites. No free air. BOWEL: Normal appendix. No stomach or bowel distension. No focal inflammatory change. LYMPH NODES: No enlarged mesenteric or retroperitoneal lymph nodes. VESSELS: Aorta is non-dilated. URINARY BLADDER: Unremarkable. REPRODUCTIVE ORGANS: No pelvic masses. BONES: No acute or aggressive abnormality. CT/Abdomen/Pelvis without Cont IMPRESSION: Finding consistent with acute interstitial edematous pancreatitis. Electronically Signed: Corbin Valiente MD at 19:04 EDT ,
--- NOTE | 2022-08-30 18:44 | ED.RN ---
THIS RN ASSISTED DR HUBER WITH RT SIDED FEMORAL STICK FOR BLOODWORK. PT TOLERATED WELL
[2022-08-30 19:07] LABS: AST(SGOT) 715 U/L (15-37); Alanine Aminotransfer ALT/SGPT 566 U/L (13-56); Albumin, Serum 3.2 g/dL (3.2-5.0); Alkaline Phosphatase 112 U/L (45-117); Anion Gap 8 (5-15); BUN 16 mg/dL (7-18); BUN/Creat Ratio 16.7 RATIO (10-20); Calcium,Total 8.2 mg/dL (8.5-10.1); Chloride 107 mmol/L (98-107); Creatinine, Serum 0.96 mg/dL (0.55-1.02); EST Glomerular Filtration Rate 60 mL/min (>60); Est Glom Filt Rate - Afr Amer 73 mL/min (>60); Estimated Creatinine Clearance 51.29 ml/min; Globulin 3.1 g/dL (2.2-4.2); Glucose 121 mg/dL (74-106); Lipase 23197 U/L (73-393); Potassium 4.2 mmol/L (3.5-5.1); Protein, Total 6.3 g/dL (6.4-8.2); Sodium Level 143 mmol/L (136-145)
[2022-08-30 19:08] VITALS: BP 122/59
--- NOTE | 2022-08-30 20:56 | PCM.HP.STD ---
HPI - General General Date of Admission: 08/30/22 Date of Service: 08/30/22 Chief Complaint: Abd pain HPI Narrative CHRIS OREILLY, is a 77 F with a history of SREEKANTH with CPAP, pulmonary arterial hypertension, hypertension, cholelithiasis who presented to [facility] 08/30/2022 with 1 day of epigastric pain. In ED she was found to have elevated bilirubin as well as liver enzymes and a lipase of 23,197. GI and surgery contacted who recommended admission and she will be seen in consult. Hospitalist consulted for admission. Patient seen with daughter at bedside. She reports she was in her usual health until last night when she climbed up her stairs and lay down in bed when she developed significant epigastric pain. Had difficulty eating and drinking and has had some gagging and nausea and the pain did not improve prompting ED visit. Had 3 small bowel movements yesterday without relief of pain. Denies having this happen previously. Denies alcohol use. Reports her pain is not worsening and might be slightly better though still significant. Has chronic shortness of breath and follows with Dr. Singh and does not feel this is changed, did not endorse any other acute complaints at this time. [facility] Medical History Diverticulosis Essential hypertension Hyperlipidemia Hypothyroidism Meningioma, cerebral Obesity Obstructive sleep apnea Secondary pulmonary arterial hypertension Trigeminal neuralgia Home Medications pregabalin 100 mg capsule (Lyrica) 100 mg PO TID 05/12/21 [History Last Taken Unknown] montelukast 10 mg tablet (Singulair) 10 mg PO QHS 08/13/21 [History Last Taken Unknown] multivitamin (Daily Multi-Vitamin tablet) 1 tab PO DAILY 08/13/21 [History Last Taken Unknown] furosemide 40 mg tablet (Lasix) 40 mg PO BID 11/11/21 [History Last Taken Unknown] levothyroxine 100 mcg tablet 100 mcg PO DAILY 11/11/21 [History Last Taken Unknown] losartan 100 mg tablet 100 mg PO DAILY #90 tabs 03/30/22 [Rx Last Taken Unknown] Allergy/AdvReac Type Severity Reaction Status Date / Time amoxicillin Allergy rash Verified 08/30/22 13:30 carbamazepine Allergy rash Verified 08/30/22 13:30 rofecoxib [From Vioxx] Allergy rash Verified 08/30/22 13:30 acetaminophen [From Percocet] AdvReac Vomiting Verified 08/30/22 13:30 codeine AdvReac vomiting Verified 08/30/22 13:30 fentanyl AdvReac Vomiting Verified 08/30/22 13:30 gabapentin [From Neurontin] AdvReac intolerance Verified 08/30/22 13:30 hydrocodone [From Vicodin] AdvReac Vomiting Verified 08/30/22 13:30 meperidine [From Demerol] AdvReac Vomiting Verified 08/30/22 13:30 oxycodone [From Percocet] AdvReac Vomiting Verified 08/30/22 13:30 topiramate [From Topamax] AdvReac intolerance Verified 08/30/22 13:30 tramadol AdvReac Vomiting Verified 08/30/22 13:30 Family History (Reviewed 05/21/22 @ 09:26 by Sarah Kasper [employer] MEMBER, [employer]BER-C) Mother CVA (cerebral vascular accident) Heart disease PPM Father Heart disease valve replacement, PPM Brother Heart disease Brother Heart disease Sister Heart disease Sister Colon cancer Sister Breast cancer Daughter Breast cancer Surgical History (Reviewed 05/21/22 @ 09:26 by Sarah Kasper [employer] MEMBER, ENGLISH [employer] MEMBER-C) History of cataract surgery History of colonoscopy History of craniotomy (2010) History of right and left heart catheterization (09/01/21) [place] (trigeminal neuralgia) (2019) Social History Smoking Status: Never smoker alcohol intake: never substance use type: does not use caffeine: Yes Type: coffee Number of servings: 4 ROS ROS Narrative General: Denies fever or chills HENT: Denies headache EYES: Did not endorse acute changes in vision Resp: Chronic shortness of breath Cardiac: Denies chest pain GI: Does have abdominal pain and epigastric, 3 small bowel movements yesterday, no diarrhea : Denies changes in urination Extremity: Denies any changes in swelling MSK: Feels generally unwell, has some chronic back pain Neuro: Denies any numbness, denies tingling, has chronic trigeminal pain Heme: Denies any bleeding or bruising Skin: Denies rashes Psychiatric: No complaints voiced Vital Signs Vital Signs Vital Signs: 08/30/22 13:07 08/30/22 13:30 08/30/22 17:16 Temperature 97.2 F L 97.6 F L Temperature Source Temporal Temporal Pulse Rate 117 H 100 78 Respiratory Rate 18 18 16 Blood Pressure 181/79 H 158/79 H 131/68 H Blood Pressure Mean 113 105 89 Pulse Ox 98 98 96 Oxygen Delivery Method Room Air Room Air Room Air 08/30/22 19:08 Temperature Temperature Source Pulse Rate Respiratory Rate Blood Pressure 122/59 H Blood Pressure Mean 80 Pulse Ox Oxygen Delivery Method Weight Weight: 98.067 kg Body Mass Index (BMI) 31.9 Physical Exam Narrative General: Alert, oriented, no apparent distress HEENT: Atraumatic, normocephalic Eyes: Anicteric, normal conjunctiva, extraocular movements grossly intact Neck: Supple Respiratory: Clear to auscultation bilaterally, normal respiratory effort Cardiovascular: Regular rate and rhythm GI: Tender diffusely but primarily in the epigastric region, no rebound, guarding, rigidity, decreased bowel sounds Extremities: No edema Musculoskeletal: Moving all extremities Neuro: No overt focal neurological deficits Skin: No rashes appreciated Psych: Cooperative Results Lab / Micro Data Result Diagrams: 08/30/22 15:28 08/30/22 18:25 Labs: Laboratory Results - last 24 hr 08/30/22 15:28: WBC 7.9, RBC 4.99, Hgb 14.1, Hct 44.9, MCV 90.0, MCH 28.3, MCHC 31.4 L, RDW Std Deviation 44.9 H, RDW Coeff of Rajinder 13.7, Plt Count , Immature Gran % (Auto) 0.400, Neut % (Auto) 69.2, Lymph % (Auto) 24.3, [place] % (Auto) 5.6, Eos % (Auto) 0.1, Baso % (Auto) 0.4, Absolute Neuts (auto) 5.5, Absolute Lymphs (auto) 1.92, Nucleated RBC % 0, Differential Comment SCANNED, Platelet Estimate ADEQUATE 08/30/22 15:28: Sodium Cancelled, Potassium Cancelled, Chloride Cancelled, Carbon Dioxide Cancelled, Anion Gap Cancelled, BUN Cancelled, Creatinine Cancelled, Estim Creat Clear Calc Cancelled, Est GFR (MDRD) Af Amer Cancelled, Est GFR (MDRD) Non-Af Cancelled, BUN/Creatinine Ratio Cancelled, Glucose Cancelled, Calcium Cancelled, Total Bilirubin Cancelled, AST Cancelled, ALT Cancelled, Alkaline Phosphatase Cancelled, Total Protein Cancelled, Albumin Cancelled, Globulin Cancelled, Albumin/Globulin Ratio Cancelled, Lipase Cancelled 08/30/22 16:27: Sodium Cancelled, Potassium Cancelled, Chloride Cancelled, Carbon Dioxide Cancelled, Anion Gap Cancelled, BUN Cancelled, Creatinine Cancelled, Estim Creat Clear Calc Cancelled, Est GFR (MDRD) Af Amer Cancelled, Est GFR (MDRD) Non-Af Cancelled, BUN/Creatinine Ratio Cancelled, Glucose Cancelled, Calcium Cancelled, Total Bilirubin Cancelled, AST Cancelled, ALT Cancelled, Alkaline Phosphatase Cancelled, Total Protein Cancelled, Albumin Cancelled, Globulin Cancelled, Albumin/Globulin Ratio Cancelled, Lipase Cancelled 08/30/22 17:02: Urine Color Yellow, Urine Clarity Clear, Urine pH 8.0, Ur Specific [place] 1.015, Urine Protein Negative, Urine Glucose (UA) Normal, Urine Ketones Negative, Urine Occult Blood Negative, Urine Nitrite Negative, Urine Bilirubin Negative, Urine Urobilinogen Normal, Ur Leukocyte Esterase 25 H, Urine RBC 0 SEEN, Urine WBC 0 SEEN, Ur Squamous Epith Cells 0 SEEN, Urine Bacteria 0 SEEN, Urine Mucus 0 SEEN 08/30/22 18:25: Sodium 143, Potassium 4.2, Chloride 107, Carbon Dioxide 28.0, Anion Gap 8, BUN 16, Creatinine 0.96, Estim Creat Clear Calc 51.29, Est GFR (MDRD) Af Amer 73, Est GFR (MDRD) Non-Af 60, BUN/Creatinine Ratio 16.7, Glucose 121 H, Calcium 8.2 L, Total Bilirubin 1.40 H, AST 715 H, ALT 566 H, Alkaline Phosphatase 112, Total Protein 6.3 L, Albumin 3.2, Globulin 3.1, Albumin/Globulin Ratio 1.0, Lipase 92510 H Radiology Impression Gallbladder Ultrasound 08/30/22 13:42 IMPRESSION: Cholelithiasis with nonspecific distention. No sonographic findings of acute cholecystitis. Enlarged fatty liver. Electronically Signed: Corbin Valiente MD at 17:27 EDT , Chest X-Ray 08/30/22 15:10 IMPRESSION: No radiographic evidence of acute cardiopulmonary disease. Electronically Signed: Corbin Valiente MD at 15:55 EDT , Abdomen/Pelvis CT 08/30/22 17:58 IMPRESSION: Finding consistent with acute interstitial edematous pancreatitis. Electronically Signed: Corbin Valiente MD at 19:04 EDT , Assessment & Plan Assessment/Plan (1) Acute biliary pancreatitis: (2) Secondary pulmonary arterial hypertension: PLAN: Plan #Acute gallstone pancreatitis -Gallbladder ultrasound demonstrated multiple gallstones and gallbladder distention to 10.4 cm with no increased wall thickness or pericholecystic fluid but has elevated bili as well as liver function tests and a lipase of 23,197 -CT of the abdomen with acute interstitial edematous pancreatitis -Hematocrit 44.9, BUN 16 with creatinine of 0.96 -N.p.o., continue maintenance fluids, pain control -Hold Lasix -GI and surgery consults -No signs or symptoms of infection, will hold on prophylactic antibiotics #Hypothyroidism -Continue Synthroid daily #SREEKANTH/secondary pulmonary arterial hypertension -CPAP nightly -Last echo demonstrated EF of 65% with RVSP estimated to be 40 mmHg -Follows with Dr. Stroud as an outpatient -Is on Lasix twice daily, will hold this given presenting problem and monitor clinically -Continue to assess for ability to DC fluids or for signs and symptoms of overload #DVT ppx: Lovenox subq Ella Hinojosa MD Time spent in the patient's overall evaluation,decision-making process, review of diagnostic data, adjustment of management, discussion with other providers, nursing nursing and ancillary staff involved in patient's care documentation, 60 Minutes Charges/Coding Visit Charges Inpatient E&M: 39692 Init Hosp L2
[2022-08-30] MEDS: HYDROmorphone 0.5 MG/0.5 ML SYRINGE IV (20:57)
[2022-08-30 21:13] VITALS: BP 141/70; PULSE 85; RESP 18; TEMP 36.5; O2SAT 96
[2022-08-30 22:01] VITALS: BMI 31.6
[2022-08-30 22:03] VITALS: BMI 31.5
[2022-08-30 22:11] VITALS: BP 140/70; PULSE 84; RESP 18; TEMP 37; O2SAT 97
[2022-08-30] MEDS: Pregabalin 50 MG Capsule 100 MG PO (22:32)
[2022-08-30] MEDS: 0.9% Normal Saline 1,000 ML 150 ML IV (22:32)
[2022-08-31 03:57] VITALS: BP 116/68; PULSE 80; RESP 16; TEMP 37.7; O2SAT 97
[2022-08-31] MEDS: HYDROmorphone 0.5 MG/0.5 ML SYRINGE IV ×3 (04:08→14:43)
[2022-08-31] MEDS: 0.9% Normal Saline 1,000 ML 150 ML IV ×4 (04:08→23:35)
[2022-08-31 07:07] LABS: Absolute Lymphocyte Count 1.45 X10^3/uL (0.83-4.51); Absolute Neutrophil Count 5.6 X10^3/uL (2.0-7.7); Basophil# 0.01 X10^3/uL; Basophil% 0.1 % (0-1); Eosinophil# 0.01 X10^3/uL; Eosinophils% 0.1 % (0-5); Hematocrit 39.3 % (37-47); Hemoglobin 12.5 g/dL (12.0-15.0); Lymphocyte # 1.45 X10^3/ul (0.83-4.51); Lymphocyte % 19.2 % (19-41); Mean Corp Hgb Conc 31.8 g/dL (32-36); Mean Corpuscular Hgb 29.2 pg (27.0-32.0); Mean Corpuscular Volume 91.8 fL (81-99); Mean Platelet Vol. 11.7 fl (6.2-12.0); Monocyte# 0.45 X10^3/uL; NRBC Flagged by Analyzer 0 % (0-5); Neutrophil # 5.61 X10^3/uL (2.7-7.7); Neutrophil % 74.2 % (47-70); Platelet Count 169 K/mm3 (150-450); RBC Distribution Width SD 46.9 fl (35.1-43.9); Red Blood Count 4.28 M/mm3 (4.2-5.4); White Blood Count 7.6 K/mm3 (4.4-11.0)
--- NOTE | 2022-08-31 07:54 | PN.HOSP_ITS ---
Reason for Visit Reason for Visit: Diagnoses Secondary pulmonary arterial hypertension (08/30/22) Biliary acute pancreatitis without necrosis or infection (08/30/22) Subjective Subjective Feels better, but still with abdominal pain. Objective Data Objective Data Vital Signs: Vital Signs Temp Pulse Resp BP Pulse Ox O2 Del Method 37.7 C H 80 16 116/68 97 Room Air 08/31/22 03:57 08/31/22 03:57 08/31/22 03:57 08/31/22 03:57 08/31/22 03:57 08/31/22 03:57 Oxygen Delivery Method Room Air Weight: 96.8 kg Body Mass Index (BMI) 31.5 Intake & Output: Intake and Output for Last 24 Hours 08/29/22 08/30/22 08/31/22 22:59 23:59 23:59 Intake Total 840 / 840 Balance 840 / 840 Lab / Micro Data Result Diagrams: 08/31/22 06:50 08/31/22 06:50 Labs: Laboratory Results - last 24 hr 08/30/22 15:28: WBC 7.9, RBC 4.99, Hgb 14.1, Hct 44.9, MCV 90.0, MCH 28.3, MCHC 31.4 L, RDW Std Deviation 44.9 H, RDW Coeff of Rajinder 13.7, Plt Count , Immature Gran % (Auto) 0.400, Neut % (Auto) 69.2, Lymph % (Auto) 24.3, [place] % (Auto) 5.6, Eos % (Auto) 0.1, Baso % (Auto) 0.4, Absolute Neuts (auto) 5.5, Absolute Lymphs (auto) 1.92, Nucleated RBC % 0, Differential Comment SCANNED, Platelet Estimate ADEQUATE 08/30/22 15:28: Sodium Cancelled, Potassium Cancelled, Chloride Cancelled, Carbon Dioxide Cancelled, Anion Gap Cancelled, BUN Cancelled, Creatinine Cancelled, Estim Creat Clear Calc Cancelled, Est GFR (MDRD) Af Amer Cancelled, Est GFR (MDRD) Non-Af Cancelled, BUN/Creatinine Ratio Cancelled, Glucose Cancelled, Calcium Cancelled, Total Bilirubin Cancelled, AST Cancelled, ALT Cancelled, Alkaline Phosphatase Cancelled, Total Protein Cancelled, Albumin Cancelled, Globulin Cancelled, Albumin/Globulin Ratio Cancelled, Lipase Cancelled 08/30/22 16:27: Sodium Cancelled, Potassium Cancelled, Chloride Cancelled, Carbon Dioxide Cancelled, Anion Gap Cancelled, BUN Cancelled, Creatinine Cancelled, Estim Creat Clear Calc Cancelled, Est GFR (MDRD) Af Amer Cancelled, Est GFR (MDRD) Non-Af Cancelled, BUN/Creatinine Ratio Cancelled, Glucose Cancelled, Calcium Cancelled, Total Bilirubin Cancelled, AST Cancelled, ALT Cancelled, Alkaline Phosphatase Cancelled, Total Protein Cancelled, Albumin Cancelled, Globulin Cancelled, Albumin/Globulin Ratio Cancelled, Lipase Cancelled 08/30/22 17:02: Urine Color Yellow, Urine Clarity Clear, Urine pH 8.0, Ur Spec ific [place] 1.015, Urine Protein Negative, Urine Glucose (UA) Normal, Urine Ketones Negative, Urine Occult Blood Negative, Urine Nitrite Negative, Urine Bilirubin Negative, Urine Urobilinogen Normal, Ur Leukocyte Esterase 25 H, Urine RBC 0 SEEN, Urine WBC 0 SEEN, Ur Squamous Epith Cells 0 SEEN, Urine Bacteria 0 SEEN, Urine Mucus 0 SEEN 08/30/22 18:25: Sodium 143, Potassium 4.2, Chloride 107, Carbon Dioxide 28.0, Anion Gap 8, BUN 16, Creatinine 0.96, Estim Creat Clear Calc 51.29, Est GFR (MDRD) Af Amer 73, Est GFR (MDRD) Non-Af 60, BUN/Creatinine Ratio 16.7, Glucose 121 H, Calcium 8.2 L, Total Bilirubin 1.40 H, AST 715 H, ALT 566 H, Alkaline Phosphatase 112, Total Protein 6.3 L, Albumin 3.2, Globulin 3.1, A lbumin/Globulin Ratio 1.0, Lipase 44598 H 08/31/22 06:50: WBC 7.6, RBC 4.28, Hgb 12.5, Hct 39.3, MCV 91.8, MCH 29.2, MCHC 31.8 L, RDW Std Deviation 46.9 H, RDW Coeff of Rajinder 14.0, Plt Count 169, MPV 11.7, Immature Gran % (Auto) 0.400, Neut % (Auto) 74.2 H, Lymph % (Auto) 19.2, [place] % (Auto) 6.0, Eos % (Auto) 0.1, Baso % (Auto) 0.1, Absolute Neuts (auto) 5.6, Absolute Lymphs (auto) 1.45, Nucleated RBC % 0 Radiography Diagnostic Testing: Radiology Impression Gallbladder Ultrasound 08/30/22 13:42 IMPRESSION: Cholelithiasis with nonspecific distention. No sonographic findings of acute cholecystitis. Enlarged fatty liver. Electronically Signed: Corbin Valiente MD at 17:27 EDT , Chest X-Ray 08/30/22 15:10 IMPRESSION: No radiographic evidence of acute cardiopulmonary disease. Electronically Signed: Corbin Valiente MD at 15:55 EDT , Abdomen/Pelvis CT 08/30/22 17:58 IMPRESSION: Finding consistent with acute interstitial edematous pancreatitis. Electronically Signed: Corbin Valiente MD at 19:04 EDT , Physical Exam Const alert and no apparent distress HEENT head/scalp atraumatic and moist oral mucous membranes Resp normal respiratory effort, no retractions, no use of accessory muscles and clear to auscultation bilaterally Cardio regular rate, regular rhythm, S1 normal heart sound and S2 normal heart sound GI GI Narrative: RUQ and LUQ abdominal pain. some rebound tenderness. Assessment & Plan Assessment/Plan (1) Acute biliary pancreatitis: PLAN: Acute gallstone pancreatitis -Gallbladder ultrasound demonstrated multiple gallstones and gallbladder distention to 10.4 cm with no increased wall thickness or pericholecystic fluid but has elevated bili as well as liver function tests and a lipase of 23,197 -CT of the abdomen with acute interstitial edematous pancreatitis -Hematocrit 44.9, BUN 16 with creatinine of 0.96 -N.p.o., continue maintenance fluids, pain control -Hold Lasix -No signs or symptoms of infection, will hold on prophylactic antibiotics -plan for lap lissette with cholangiogram. GI to be available for ERCP if needed on the PLAN: Plan Chronic conditions: * Hypothyroidism-Continue Synthroid daily * SREEKANTH-CPAP nightly * Group 3 pulmonary hypertension-Last echo demonstrated EF of 65% with RVSP estimated to be 40 mmHg-Follows with Dr. Stroud as an outpatient-Is on Lasix twice daily, will hold this given presenting problem and monitor clinically- Continue to assess for ability to DC fluids or for signs and symptoms of overload DVT ppx: Lovenox subq Charges/Coding Visit Charges Inpatient E&M: 40127 Subs Hosp L2
[2022-08-31 08:00] LABS: ALB/GLOB Ratio 0.9 RATIO (0.9-2.4); AST(SGOT) 387 U/L (15-37); Alanine Aminotransfer ALT/SGPT 462 U/L (13-56); Albumin, Serum 2.7 g/dL (3.2-5.0); Alkaline Phosphatase 140 U/L (45-117); Anion Gap 6 (5-15); BUN 11 mg/dL (7-18); Calcium,Total 7.7 mg/dL (8.5-10.1); Chloride 111 mmol/L (98-107); Creatinine, Serum 0.84 mg/dL (0.55-1.02); EST Glomerular Filtration Rate 70 mL/min (>60); Est Glom Filt Rate - Afr Amer 84 mL/min (>60); Estimated Creatinine Clearance 58.61 ml/min; Glucose 110 mg/dL (74-106); Potassium 3.7 mmol/L (3.5-5.1); Protein, Total 5.7 g/dL (6.4-8.2); Sodium Level 143 mmol/L (136-145); Thyroid Stim Hormone (TSH) 0.89 uIU/mL (0.358-3.74)
[2022-08-31] MEDS: Levothyroxine 100 MCG Tablet PO (09:38)
[2022-08-31] MEDS: Pregabalin 50 MG Capsule 100 MG PO ×3 (09:38→22:01)
[2022-08-31] MEDS: Enoxaparin 40 MG/0.4 ML Syringe SC (09:38)
[2022-08-31 09:40] VITALS: BP 130/68; PULSE 84; RESP 16; TEMP 38.1; O2SAT 95
[2022-08-31] MEDS: 0.9% Saline Lock 10 ML Syringe IV ×2 (09:41→22:00)
--- NOTE | 2022-08-31 10:04 | EX.PCM.CON.S ---
Assessment & Plan Assessment/Plan (1) Acute biliary pancreatitis: PLAN: This is a 77-year-old female admitted for acute pancreatitis?believed to be related to a biliary origin given her concurrent elevation of liver enzymes. Significantly, however, imaging did not demonstrate ductal dilatation. Patient has no history of pancreatitis. She reports that her abdominal discomfort is already improved since it began 2 days ago. Some of her laboratory work is spontaneously improved today, but her alkaline phosphatase remains elevated. In conversations with gastroenterology, they would be inclined to perform an ERCP if an intraoperative cholangiogram were positive. Therefore, I have recommended the patient that we proceed for laparoscopic cholecystectomy with intraoperative cholangiogram and GI will be on hand to proceed with ERCP under the same sedation if warranted. My reasonings for this recommendation were also given the patient including trying to mitigate her risk for recurrent pancreatitis?which if due to cholelithiasis would be at least 25% at 1 year. Patient provides her verbal consent, but states that her daughter may have some questions so I informed her that I would plan to return this afternoon. ? Continue n.p.o. with IV fluid resuscitation (patient's lung history and diuretic dependence should be considered) ? Trend CMP ? Plan for laparoscopic cholecystectomy with IOC (and ERCP if warranted) tomorrow 09/01/2022 HPI Consult Data Date of Consult: 08/31/22 HPI Narrative Reason for Consultation: Pancreatitis HPI Narrative: CHRIS OREILLY, is a 77 F who presents to [facility] with complaints of acute onset upper abdominal pain that began the evening of 08/29/2022. Patient states the pain was so intense that she did not sleep at all. She denied any fevers or chills but did confirm nausea. She states she initially believed that her symptoms were related to the chili she had eaten previously. However, when the pain persisted despite her trying to walk it off she decided to seek evaluation. ER work-up was notable for CT imaging that showed evidence of acute interstitial pancreatitis, but no abnormalities of the gallbladder and no intra or extrahepatic biliary ductal dilation. A right upper quadrant ultrasound had preceded the CT imaging and was unremarkable for any evidence of cholecystitis, but did confirm cholelithiasis. Biochemistries demonstrated transaminitis, hyperbilirubinemia, and an elevated lipase. Patient reports today that her abdominal pain is significantly improved and hardly present if she does not move. We reviewed her past medical and past surgical history. She confirms that she has never had pancreatitis previously. She also confirms that her only prior abdominal surgery was a tubal ligation remotely. Concerning her family history, patient admits that some of this history is unclear to her due to lack of proximity with her siblings, but she is not able to exclude a possible diagnosis of pancreatic cancer in 1 sister. [facility] Medical History Diverticulosis Essential hypertension Hyperlipidemia Hypothyroidism Meningioma, cerebral Obesity Obstructive sleep apnea Secondary pulmonary arterial hypertension Trigeminal neuralgia Home Medications pregabalin 100 mg capsule (Lyrica) 100 mg PO TID 05/12/21 [History Last Taken Unknown] montelukast 10 mg tablet (Singulair) 10 mg PO QHS 08/13/21 [History Last Taken Unknown] multivitamin (Daily Multi-Vitamin tablet) 1 tab PO DAILY 08/13/21 [History Last Taken Unknown] furosemide 40 mg tablet (Lasix) 40 mg PO BID 11/11/21 [History Last Taken Unknown] levothyroxine 100 mcg tablet 100 mcg PO DAILY 11/11/21 [History Last Taken Unknown] losartan 100 mg tablet 100 mg PO DAILY #90 tabs 03/30/22 [Rx Last Taken Unknown] Allergy/AdvReac Type Severity Reaction Status Date / Time amoxicillin Allergy rash Verified 08/30/22 13:30 carbamazepine Allergy rash Verified 08/30/22 13:30 rofecoxib [From Vioxx] Allergy rash Verified 08/30/22 13:30 acetaminophen [From Percocet] AdvReac Vomiting Verified 08/30/22 13:30 codeine AdvReac vomiting Verified 08/30/22 13:30 fentanyl AdvReac Vomiting Verified 08/30/22 13:30 gabapentin [From Neurontin] AdvReac intolerance Verified 08/30/22 13:30 hydrocodone [From Vicodin] AdvReac Vomiting Verified 08/30/22 13:30 meperidine [From Demerol] AdvReac Vomiting Verified 08/30/22 13:30 oxycodone [From Percocet] AdvReac Vomiting Verified 08/30/22 13:30 topiramate [From Topamax] AdvReac intolerance Verified 08/30/22 13:30 tramadol AdvReac Vomiting Verified 08/30/22 13:30 Family History (Reviewed 05/21/22 @ 09:26 by Sarah Kasper EDGE GLUE MACHINE TENDER, EDGE GLUE MACHINE TENDER-C) Mother CVA (cerebral vascular accident) Heart disease PPM Father Heart disease valve replacement, PPM Brother Heart disease Brother Heart disease Sister Heart disease Sister Colon cancer Sister Breast cancer Daughter Breast cancer Surgical History (Reviewed 05/21/22 @ 09:26 by Sarah Kasper EDGE GLUE MACHINE TENDER, EDGE GLUE MACHINE TENDER-C) History of cataract surgery History of colonoscopy History of craniotomy (2010) History of right and left heart catheterization (09/01/21) TN (trigeminal neuralgia) (2019) Social History Smoking Status: Never smoker alcohol intake: never substance use type: does not use caffeine: Yes Type: coffee Number of servings: 4 Physical Exam Const alert and oriented x3 Nutritional Appearance: obese GI GI Narrative: Mildly distended, no scars, soft, tender to palpation in the left lower quadrant, epigastrium, and right upper quadrant. Reveles sign is negative. Lab / Micro Data Result Diagrams: 08/31/22 06:50 08/31/22 06:50 Labs: Laboratory Results - last 24 hr 08/30/22 15:28: WBC 7.9, RBC 4.99, Hgb 14.1, Hct 44.9, MCV 90.0, MCH 28.3, MCHC 31.4 L, RDW Std Deviation 44.9 H, RDW Coeff of Rajinder 13.7, Plt Count , Immature Gran % (Auto) 0.400, Neut % (Auto) 69.2, Lymph % (Auto) 24.3, [place] % (Auto) 5.6, Eos % (Auto) 0.1, Baso % (Auto) 0.4, Absolute Neuts (auto) 5.5, Absolute Lymphs (auto) 1.92, Nucleated RBC % 0, Differential Comment SCANNED, Platelet Estimate ADEQUATE 08/30/22 15:28: Sodium Cancelled, Potassium Cancelled, Chloride Cancelled, Carbon Dioxide Cancelled, Anion Gap Cancelled, BUN Cancelled, Creatinine Cancelled, Estim Creat Clear Calc Cancelled, Est GFR (MDRD) Af Amer Cancelled, Est GFR (MDRD) Non-Af Cancelled, BUN/Creatinine Ratio Cancelled, Glucose Cancelled, Calcium Cancelled, Total Bilirubin Cancelled, AST Cancelled, ALT Cancelled, Alkaline Phosphatase Cancelled, Total Protein Cancelled, Albumin Cancelled, Globulin Cancelled, Albumin/Globulin Ratio Cancelled, Lipase Cancelled 08/30/22 16:27: Sodium Cancelled, Potassium Cancelled, Chloride Cancelled, Carbon Dioxide Cancelled, Anion Gap Cancelled, BUN Cancelled, Creatinine Cancelled, Estim Creat Clear Calc Cancelled, Est GFR (MDRD) Af Amer Cancelled, Est GFR (MDRD) Non-Af Cancelled, BUN/Creatinine Ratio Cancelled, Glucose Cancelled, Calcium Cancelled, Total Bilirubin Cancelled, AST Cancelled, ALT Cancelled, Alkaline Phosphatase Cancelled, Total Protein Cancelled, Albumin Cancelled, Globulin Cancelled, Albumin/Globulin Ratio Cancelled, Lipase Cancelled 08/30/22 17:02: Urine Color Yellow, Urine Clarity Clear, Urine pH 8.0, Ur Specific [place] 1.015, Urine Protein Negative, Urine Glucose (UA) Normal, Urine Ketones Negative, Urine Occult Blood Negative, Urine Nitrite Negative, Urine Bilirubin Negative, Urine Urobilinogen Normal, Ur Leukocyte Esterase 25 H, Urine RBC 0 SEEN, Urine WBC 0 SEEN, Ur Squamous Epith Cells 0 SEEN, Urine Bacteria 0 SEEN, Urine Mucus 0 SEEN 08/30/22 18:25: Sodium 143, Potassium 4.2, Chloride 107, Carbon Dioxide 28.0, Anion Gap 8, BUN 16, Creatinine 0.96, Estim Creat Clear Calc 51.29, Est GFR (MDRD) Af Amer 73, Est GFR (MDRD) Non-Af 60, BUN/Creatinine Ratio 16.7, Glucose 121 H, Calcium 8.2 L, Total Bilirubin 1.40 H, AST 715 H, ALT 566 H, Alkaline Phosphatase 112, Total Protein 6.3 L, Albumin 3.2, Globulin 3.1, Albumin/Globulin Ratio 1.0, Lipase 63547 H 08/31/22 06:50: WBC 7.6, RBC 4.28, Hgb 12.5, Hct 39.3, MCV 91.8, MCH 29.2, MCHC 31.8 L, RDW Std Deviation 46.9 H, RDW Coeff of Rajinder 14.0, Plt Count 169, MPV 11.7, Immature Gran % (Auto) 0.400, Neut % (Auto) 74.2 H, Lymph % (Auto) 19.2, [place] % (Auto) 6.0, Eos % (Auto) 0.1, Baso % (Auto) 0.1, Absolute Neuts (auto) 5.6, Absolute Lymphs (auto) 1.45, Nucleated RBC % 0 08/31/22 06:50: Sodium 143, Potassium 3.7, Chloride 111 H, Carbon Dioxide 26.0, Anion Gap 6, BUN 11, Creatinine 0.84, Estim Creat Clear Calc 58.61, Est GFR (MDRD) Af Amer 84, Est GFR (MDRD) Non-Af 70, BUN/Creatinine Ratio 13.0, Glucose 110 H, Calcium 7.7 L, Total Bilirubin 1.40 H, AST 387 H, ALT 462 H, Alkaline Phosphatase 140 H, Total Protein 5.7 L, Albumin 2.7 L, Globulin 3.0, Albumin/Globulin Ratio 0.9, TSH 0.89 Radiology Impression Gallbladder Ultrasound 08/30/22 13:42 IMPRESSION: Cholelithiasis with nonspecific distention. No sonographic findings of acute cholecystitis. Enlarged fatty liver. Electronically Signed: Corbin Valiente MD at 17:27 EDT , Chest X-Ray 08/30/22 15:10 IMPRESSION: No radiographic evidence of acute cardiopulmonary disease. Electronically Signed: Corbin Valiente MD at 15:55 EDT , Abdomen/Pelvis CT 08/30/22 17:58 IMPRESSION: Finding consistent with acute interstitial edematous pancreatitis. Electronically Signed: Corbin Valiente MD at 19:04 EDT , Charges/Coding Visit Charges Inpatient E&M: 19671 Init Hosp L2
--- NOTE | 2022-08-31 12:33 | EKG12_ITS ---
Test Reason : PRE-OP Blood Pressure : / mmHG Vent. Rate : 097 BPM Atrial Rate : 097 BPM P-R Int : 152 ms QRS Dur : 080 ms QT Int : 330 ms P-R-T Axes : 075 -14 073 degrees QTc Int : 419 ms Normal sinus rhythm Low voltage QRS (Limb Leads) Confirmed by BARRINGTON KING, GEOVANNA ([id number]), photo editor BHANU CHAMPION ([id number]) on 09/02/2022 9:59:00 AM Referred By: VICENTE Confirmed By:GEOVANNA FERRIS MD
--- NOTE | 2022-08-31 13:10 | CASEMGMT ---
RN?CM?PYTHON ENGINEER?CM?to room to meet with patient for initial transition planning/care coordination?assessment.?RN?CM?introduced self and role at [facility].? Pt voices understanding and consents to?assessment?at this time.? Pt sitting up in chair in room in no distress at this time.? Pt is A/O at this time and answers all questions appropriately.?? Care providers, pharmacy, and demographics verified/updated at this time. PCP: Dr Beauchamp Specialists: Dr Munguia, Dr Varela/AUTO GLASS TECHNICIAN Sarah Kasper-cardio, Dr Yadav-pain mgmt Preferred Pharmacy: [facility] Retail Insurance: [employer] [facility] Prescription Benefit:?Yes Living Will/HPOA:?Pt states she thinks she has done both of these and she thinks her dtr, Sheri, is her HCPOA. She was made aware these are not on file @ [facility]. She states she would like to do new ones then, as she is not sure where they documents are. LNOK: 7 children. 2 dtr's are Sheri and Laverne Living Arrangements: Lives alone in 2-story home w/about 7 steps to enter. Bedroom and bathroom on 2nd floor. Bathroom and shower on main floor. Pt states there are rails on both sides going upstairs and states she usually has to pull herself up the stairs. She reports being indep w/ADL's, IADL's and manages her own medications. 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 Transportation:?Pt states drives self and states no transportation concerns at this time.? DME: States has the following DME:? CPAP from [employer] and pulse ox. Pt also has/does not use: shower chair, cane, walker, transport chair. ?Pt states no need for further DME at this time.? HHC/SNF: Hx of both SNF and HHC. Discussed discharge planning. Pt states she does not know what she'll need at discharge. She would like to be able to go home but she is feeling weak and has concerns w/the stairs. She would like to be able to discharge home, if able, and is considering HHC. Discussed MCR requirements of being homebound. She states she may not be able to return to work right away, as she has a distance to walk to get into her business and states she has a DIL that may be able to help @ the business, if she needs to be off. PT/OT wilber pending. Pt made aware CM to follow up w/her after therapy works w/her and recommendations are received. CM?to follow for further discharge planning/needs.? Pt voices no further concerns/needs at this time.? Advised pt to ask for?CM?if any further questions/concerns/needs arise.? Voices understanding. PLAN:??TBD. Anticipate pt being able to return home w/possible [facility] PT/OT wilber pending. Kanchan BSN?RN?CM
[2022-08-31 13:36] LABS: Erythrocyte Sedimentation Rate 19 mm/hr (0-30)
--- NOTE | 2022-08-31 13:43 | EX.PCM.CON.G ---
HPI Consult Data Date of Consult: 08/31/22 HPI Narrative Reason for Consultation: Choledocholithiasis and pancreatitis HPI Narrative: CHRIS OREILLY, is a 77 F who presents with worsening abdominal pain.? She also has been having some shortness of breath. She has been evaluated by the 3d artist and has had a 6-minute test with his saturations dropping but not enough to require oxygen.? She had a CT scan of her chest which demonstrated abnormal scarring with some calcified granulomas and calcified coronary artery.? She also had an echocardiogram performed which demonstrated an ejection fraction of 65%, no wall motion abnormalities, right ventricular systolic pressure estimated to be 40 mmHg.? Patient ate chili for dinner last night and a couple hours later started getting diffuse upper abdominal pain that has been worsening, it is not necessarily colicky, she has had nausea and vomiting.? No history of any abdominal surgeries in the past.? It is a little more uncomfortable to take deep breaths but she does not have lateralizing pain with doing so nor does she have discomfort in her chest or back.? The pain radiates in a bandlike distribution around to her sides.? No lower abdominal pain.? No distention, she states her abdomen is its usual size. 08/31/22 06:50: Sodium 143, Potassium 3.7, Chloride 111 H, Carbon Dioxide 26.0, Anion Gap 6, BUN 11, Creatinine 0.84, Estim Creat Clear Calc 58.61, Est GFR (MDRD) Af Amer 84, Est GFR (MDRD) Non-Af 70, BUN/Creatinine Ratio 13.0, Glucose 110 H, Calcium 7.7 L, Total Bilirubin 1.40 H, AST 387 H, ALT 462 H, Alkaline Phosphatase 140 H, Total Protein 5.7 L, Albumin 2.7 L, Globulin 3.0, Albumin/Globulin Ratio 0.9, TSH 0.89, lipase of 24,000 08/31/22 06:50: ESR 19 She had ultrasound of the right upper quadrant in the ED : liver: Enlarged to 22 cm with diffusely increased echotexture.? Normal portal venous blood flow. Gallbladder: Normal wall thickness.? Multiple shadowing gallstones.? No pericholecystic fluid.? Sonographic Reveles''s sign reported negative. Distended to 10.4 cm. Biliary Tree: Nondilated. Common bile duct measures 6 mm. Pancreas: Limited evaluation of the head and body is unremarkable. Right kidney: Normal in size and echogenicity. No hydronephrosis or stones. The right kidney measures 12.2 cm in long axis. She had a CT scan of the abdomen pelvis: Finding consistent with acute interstitial edematous pancreatitis [facility] Medical History Diverticulosis Essential hypertension Hyperlipidemia Hypothyroidism Meningioma, cerebral Obesity Obstructive sleep apnea Secondary pulmonary arterial hypertension Trigeminal neuralgia Home Medications pregabalin 100 mg capsule (Lyrica) 100 mg PO TID 05/12/21 [History Last Taken Unknown] montelukast 10 mg tablet (Singulair) 10 mg PO QHS 08/13/21 [History Last Taken Unknown] multivitamin (Daily Multi-Vitamin tablet) 1 tab PO DAILY 08/13/21 [History Last Taken Unknown] furosemide 40 mg tablet (Lasix) 40 mg PO BID 11/11/21 [History Last Taken Unknown] levothyroxine 100 mcg tablet 100 mcg PO DAILY 11/11/21 [History Last Taken Unknown] losartan 100 mg tablet 100 mg PO DAILY #90 tabs 03/30/22 [Rx Last Taken Unknown] Allergy/AdvReac Type Severity Reaction Status Date / Time amoxicillin Allergy rash Verified 08/30/22 13:30 carbamazepine Allergy rash Verified 08/30/22 13:30 rofecoxib [From Vioxx] Allergy rash Verified 08/30/22 13:30 acetaminophen [From Percocet] AdvReac Vomiting Verified 08/30/22 13:30 codeine AdvReac vomiting Verified 08/30/22 13:30 fentanyl AdvReac Vomiting Verified 08/30/22 13:30 gabapentin [From Neurontin] AdvReac intolerance Verified 08/30/22 13:30 hydrocodone [From Vicodin] AdvReac Vomiting Verified 08/30/22 13:30 meperidine [From Demerol] AdvReac Vomiting Verified 08/30/22 13:30 oxycodone [From Percocet] AdvReac Vomiting Verified 08/30/22 13:30 topiramate [From Topamax] AdvReac intolerance Verified 08/30/22 13:30 tramadol AdvReac Vomiting Verified 08/30/22 13:30 Family History Mother CVA (cerebral vascular accident) Heart disease PPM Father Heart disease valve replacement, PPM Brother Heart disease Brother Heart disease Sister Heart disease Sister Colon cancer Sister Breast cancer Daughter Breast cancer Surgical History History of cataract surgery History of colonoscopy History of craniotomy (2010) History of right and left heart catheterization (09/01/21) TN (trigeminal neuralgia) (2019) Social History Smoking Status: Never smoker alcohol intake: never substance use type: does not use caffeine: Yes Type: coffee Number of servings: 4 ROS ROS Narrative General: Denies fever or chills HENT: Denies headache EYES: Did not endorse acute changes in vision Resp: Chronic shortness of breath Cardiac: Denies chest pain GI: Does have abdominal pain and epigastric, 3 small bowel movements yesterday, no diarrhea : Denies changes in urination Extremity: Denies any changes in swelling MSK: Feels generally unwell, has some chronic back pain Neuro: Denies any numbness, denies tingling, has chronic trigeminal pain Heme: Denies any bleeding or bruising Skin: Denies rashes Psychiatric: No complaints voiced Physical Exam Narrative General: Alert, oriented, no apparent distress HEENT: Atraumatic, normocephalic Eyes: Anicteric, normal conjunctiva, extraocular movements grossly intact Neck: Supple Respiratory: Clear to auscultation bilaterally, normal respiratory effort Cardiovascular: Regular rate and rhythm GI: Tender diffusely but primarily in the epigastric region, no rebound, guarding, rigidity, decreased bowel sounds Extremities: No edema Musculoskeletal: Moving all extremities Neuro: No overt focal neurological deficits Skin: No rashes appreciated Psych: Cooperative Lab / Micro Data Result Diagrams: 08/31/22 06:50 08/31/22 06:50 Labs: Laboratory Results - last 24 hr 08/30/22 15:28: WBC 7.9, RBC 4.99, Hgb 14.1, Hct 44.9, MCV 90.0, MCH 28.3, MCHC 31.4 L, RDW Std Deviation 44.9 H, RDW Coeff of Rajinder 13.7, Plt Count , Immature Gran % (Auto) 0.400, Neut % (Auto) 69.2, Lymph % (Auto) 24.3, [place] % (Auto) 5.6, Eos % (Auto) 0.1, Baso % (Auto) 0.4, Absolute Neuts (auto) 5.5, Absolute Lymphs (auto) 1.92, Nucleated RBC % 0, Differential Comment SCANNED, Platelet Estimate ADEQUATE 08/30/22 15:28: Sodium Cancelled, Potassium Cancelled, Chloride Cancelled, Carbon Dioxide Cancelled, Anion Gap Cancelled, BUN Cancelled, Creatinine Cancelled, Estim Creat Clear Calc Cancelled, Est GFR (MDRD) Af Amer Cancelled, Est GFR (MDRD) Non-Af Cancelled, BUN/Creatinine Ratio Cancelled, Glucose Cancelled, Calcium Cancelled, Total Bilirubin Cancelled, AST Cancelled, ALT Cancelled, Alkaline Phosphatase Cancelled, Total Protein Cancelled, Albumin Cancelled, Globulin Cancelled, Albumin/Globulin Ratio Cancelled, Lipase Cancelled 08/30/22 16:27: Sodium Cancelled, Potassium Cancelled, Chloride Cancelled, Carbon Dioxide Cancelled, Anion Gap Cancelled, BUN Cancelled, Creatinine Cancelled, Estim Creat Clear Calc Cancelled, Est GFR (MDRD) Af Amer Cancelled, Est GFR (MDRD) Non-Af Cancelled, BUN/Creatinine Ratio Cancelled, Glucose Cancelled, Calcium Cancelled, Total Bilirubin Cancelled, AST Cancelled, ALT Cancelled, Alkaline Phosphatase Cancelled, Total Protein Cancelled, Albumin Cancelled, Globulin Cancelled, Albumin/Globulin Ratio Cancelled, Lipase Cancelled 08/30/22 17:02: Urine Color Yellow, Urine Clarity Clear, Urine pH 8.0, Ur Specific [place] 1.015, Urine Protein Negative, Urine Glucose (UA) Normal, Urine Ketones Negative, Urine Occult Blood Negative, Urine Nitrite Negative, Urine Bilirubin Negative, Urine Urobilinogen Normal, Ur Leukocyte Esterase 25 H, Urine RBC 0 SEEN, Urine WBC 0 SEEN, Ur Squamous Epith Cells 0 SEEN, Urine Bacteria 0 SEEN, Urine Mucus 0 SEEN 08/30/22 18:25: Sodium 143, Potassium 4.2, Chloride 107, Carbon Dioxide 28.0, Anion Gap 8, BUN 16, Creatinine 0.96, Estim Creat Clear Calc 51.29, Est GFR (MDRD) Af Amer 73, Est GFR (MDRD) Non-Af 60, BUN/Creatinine Ratio 16.7, Glucose 121 H, Calcium 8.2 L, Total Bilirubin 1.40 H, AST 715 H, ALT 566 H, Alkaline Phosphatase 112, Total Protein 6.3 L, Albumin 3.2, Globulin 3.1, Albumin/Globulin Ratio 1.0, Lipase 28224 H 08/31/22 06:50: WBC 7.6, RBC 4.28, Hgb 12.5, Hct 39.3, MCV 91.8, MCH 29.2, MCHC 31.8 L, RDW Std Deviation 46.9 H, RDW Coeff of Rajinder 14.0, Plt Count 169, MPV 11.7, Immature Gran % (Auto) 0.400, Neut % (Auto) 74.2 H, Lymph % (Auto) 19.2, [place] % (Auto) 6.0, Eos % (Auto) 0.1, Baso % (Auto) 0.1, Absolute Neuts (auto) 5.6, Absolute Lymphs (auto) 1.45, Nucleated RBC % 0 08/31/22 06:50: Sodium 143, Potassium 3.7, Chloride 111 H, Carbon Dioxide 26.0, Anion Gap 6, BUN 11, Creatinine 0.84, Estim Creat Clear Calc 58.61, Est GFR (MDRD) Af Amer 84, Est GFR (MDRD) Non-Af 70, BUN/Creatinine Ratio 13.0, Glucose 110 H, Calcium 7.7 L, Total Bilirubin 1.40 H, AST 387 H, ALT 462 H, Alkaline Phosphatase 140 H, Total Protein 5.7 L, Albumin 2.7 L, Globulin 3.0, Albumin/Globulin Ratio 0.9, TSH 0.89 08/31/22 06:50: ESR 19 Radiology Impression Gallbladder Ultrasound 08/30/22 13:42 IMPRESSION: Cholelithiasis with nonspecific distention. No sonographic findings of acute cholecystitis. Enlarged fatty liver. Electronically Signed: Corbin Valiente MD at 17:27 EDT , Chest X-Ray 08/30/22 15:10 IMPRESSION: No radiographic evidence of acute cardiopulmonary disease. Electronically Signed: Corbin Valiente MD at 15:55 EDT , Abdomen/Pelvis CT 08/30/22 17:58 IMPRESSION: Finding consistent with acute interstitial edematous pancreatitis. Electronically Signed: Corbin Valiente MD at 19:04 EDT , Assessment & Plan Assessment/Plan (1) Acute biliary pancreatitis: (2) Secondary pulmonary arterial hypertension: PLAN: Plan #Acute gallstone pancreatitis -Gallbladder ultrasound demonstrated multiple gallstones and gallbladder distention to 10.4 cm with no increased wall thickness or pericholecystic fluid but has elevated bili as well as liver function tests and a lipase of 23,197 -Repeat amylase, lipase, ESR, CRP, lactic acid and LDH to calculate Lucio score. -CT of the abdomen with acute interstitial edematous pancreatitis -Hematocrit 44.9, BUN 16 with creatinine of 0.96 -N.p.o., continue maintenance fluids, pain control -She will undergo cholecystectomy with intraoperative cholangiograms. Charges/Coding Visit Charges Inpatient E&M: 09017 Init Hosp L3
[2022-08-31 13:54] LABS: Amylase 1296 U/L (25-115); Ferritin 98 ng/mL (8-252); Lipase 13828 U/L (73-393)
[2022-08-31 15:07] LABS: International Normalized Ratio 1.1; Prothrombin Time (Protime)PT. 14.2 SECONDS (11.7-14.9)
--- NOTE | 2022-08-31 15:20 | CHAPLAIN ---
Type of Pastoral Visit _x__ Initial Visit ___ Follow-up Visit ___ On-call Visit ___ General Patient Visit ___ Spiritual Assessment ___ Family Conference ___ Bereavement ___ Rapid Response ___ Code Blue ___ Other (describe below) Pastoral Care Referral From _x__ Patient ___ Family ___ Nurse ___ Physician ___ Passport Application Examiner ___ Stucco Applicator ___ Other (describe below) Sacrament/Intervention _x__ Active listening ___ Anointing ___ Restorationist ___ Bereavement ___ Communion _x__ Porsche exploration ___ ___ Life review _x__ Prayer ___ Reconciliation ___ Sacrament of Sick _x__ Supportive presence ___ Wedding ___ Other (describe below) Pastoral Comments patient describes her situation and the disappointment of ubrupt change in her plans; pt states that she might have had a visit today from her pastoral asssitant from [place]; call was made to notify [place] of admission as requested; supportive listening and presence; prayer given
[2022-08-31 15:40] VITALS: BP 118/63; PULSE 82; RESP 18; TEMP 38.4; O2SAT 97
[2022-08-31] MEDS: Ceftriaxone 1 GM/50 ML BAG IV (17:15)
[2022-08-31 21:03] VITALS: BP 171/68; PULSE 98; RESP 18; TEMP 38.9; O2SAT 92
[2022-08-31] MEDS: Acetaminophen 325 MG Tablet 650 MG PO (22:19)
[2022-08-31 22:22] VITALS: BP 171/68; PULSE 98
[2022-08-31] MEDS: hydrALAZINE 20 MG/ML Vial 5 MG IV (22:22)
[2022-09-01] VITALS (15 sets, daily range): BP systolic 108–162; BP diastolic 46–70; PULSE 79–115; RESP 16–20; TEMP 36.5–37.4; O2SAT 92–100; BMI 31.2; BMI 34.6
--- NOTE | 2022-09-01 | GALL_PTH ---
PATIENT: CHRIS OREILLY LOC: MS3 U#:[id number] AGE/SX: 77/F ROOM: ID313 RE08/30/[address]: Dr. Tyler Coffman DO : 1945 BED: 1 DIS: 09/05/2022 SPEC #: [id number] RECD: 09/01/22 13:10 STATUS: PABLITO RILEY #: [id number] LETICIA: 09/01/22 00:[address]: Fernando Jean-Baptiste DEPT: SURGICAL PATHOLOGY RECD BY: Kiko Fagan ENTERED: 09/01/22 13:10 SP TYPE: GALLBLADDE OTHR DR: DO Dr. Fernando Neves MD Dr. Paige Pierce, MD Mark Elderbrock, MD Tissues: Gallbladder, NOS Procedures: Surgery Specimen Level III Comments: @ Ordering doctor for SUIII edited from to @ by CHICO at 09/01/22 1343 @ Submitting doctor edited from to @ by RGOOD at 09/01/22 1343 HEADER OPERATION: Laparoscopic cholecystectomy with IOC PRE-OP DIAGNOSIS: Acute biliary pancreatitis TISSUE SUBMITTED: Gallbladder MICROSCOPIC DIAGNOSIS Gallbladder, cholecystectomy: Acute and chronic cholecystitis and cholelithiasis. BEATRICE:mai 09/02/2022 MICROSCOPIC DESCRIPTION Slides are reviewed. GROSS DESCRIPTION Received is one container labeled with the patient's name and designated gallbladder. The specimen consists of a gallbladder measuring 9.0 cm in length and up to 3.5 cm in diameter. The external surface is pink-perez, smooth and glistening for the most part. Focally it is granular, hemorrhagic and contains cautery artifact. The gallbladder contains a small amount of green-yellow to hemorrhagic bile and multiple yellow, multifaceted stones measuring in aggregate 3.0 x 3.0 x 0.6 cm and 0.5 to 0.7 cm in greatest dimension. The mucosa is bile-stained and without any mass lesions. The gallbladder wall measures up to 0.3 cm in thickness. Hyperbaric Technologist sections from the gallbladder and the cystic duct are submitted in one cassette. / BEATRICE:mai 09/01/2022 TC:2 CPT: 21021
[2022-09-01] MEDS: 0.9% Normal Saline 1,000 ML 150 ML IV ×3 (06:06→22:35)
[2022-09-01] MEDS: Levothyroxine 100 MCG Tablet PO (06:25)
[2022-09-01] MEDS: Pregabalin 50 MG Capsule 100 MG PO ×3 (06:25→22:37)
[2022-09-01 07:20] LABS: ALB/GLOB Ratio 0.8 RATIO (0.9-2.4); AST(SGOT) 109 U/L (15-37); Alanine Aminotransfer ALT/SGPT 264 U/L (13-56); Albumin, Serum 2.5 g/dL (3.2-5.0); Alkaline Phosphatase 122 U/L (45-117); Anion Gap 9 (5-15); BUN 12 mg/dL (7-18); BUN/Creat Ratio 15.5 RATIO (10-20); Calcium,Total 7.5 mg/dL (8.5-10.1); Chloride 114 mmol/L (98-107); Creatinine, Serum 0.78 mg/dL (0.55-1.02); EST Glomerular Filtration Rate 77 mL/min (>60); Est Glom Filt Rate - Afr Amer 93 mL/min (>60); Estimated Creatinine Clearance 45.82 ml/min; Globulin 3.3 g/dL (2.2-4.2); Glucose 84 mg/dL (74-106); Potassium 3.4 mmol/L (3.5-5.1); Protein, Total 5.8 g/dL (6.4-8.2); Sodium Level 144 mmol/L (136-145)
--- NOTE | 2022-09-01 07:31 | PN.HOSP_ITS ---
Reason for Visit Reason for Visit: Diagnoses Secondary pulmonary arterial hypertension (08/30/22) Biliary acute pancreatitis without necrosis or infection (08/30/22) Subjective Subjective Feeling groggy postoperative. Objective Data Objective Data Vital Signs: Vital Signs Temp Pulse Resp BP Pulse Ox O2 Del Method 37.4 C H 102 H 18 162/63 H 95 Room Air 09/01/22 06:26 09/01/22 06:26 09/01/22 06:26 09/01/22 06:26 09/01/22 06:26 09/01/22 06:26 Oxygen Delivery Method Room Air Weight: 100.38 kg Body Mass Index (BMI) 34.6 Intake & Output: Intake and Output for Last 24 Hours 08/30/22 08/31/22 09/01/22 23:59 23:59 23:59 Intake Total 3802.5 / 3802.5 1097.5 / 1097.5 Output Total 200 / 200 Balance 3802.5 / 3602.5 897.5 / 897.5 Lab / Micro Data Result Diagrams: 08/31/22 06:50 09/01/22 06:30 Labs: Laboratory Results - last 24 hr 08/31/22 06:50: Sodium 143, Potassium 3.7, Chloride 111 H, Carbon Dioxide 26.0, Anion Gap 6, BUN 11, Creatinine 0.84, Estim Creat Clear Calc 58.61, Est GFR (MDRD) Af Amer 84, Est GFR (MDRD) Non-Af 70, BUN/Creatinine Ratio 13.0, Glucose 110 H, Calcium 7.7 L, Total Bilirubin 1.40 H, AST 387 H, ALT 462 H, Alkaline Phosphatase 140 H, Total Protein 5.7 L, Albumin 2.7 L, Globulin 3.0, Albumin/Globulin Ratio 0.9, TSH 0.89 08/31/22 06:50: ESR 19 08/31/22 06:50: Ferritin 98, C-React Prot Ext Range 32.70 H, Amylase 1296 H, Lipase 06917 H 08/31/22 14:30: PT 14.2, INR 1.1 09/01/22 06:30: Sodium 144, Potassium 3.4 L, Chloride 114 H, Carbon Dioxide 21.0, Anion Gap 9, BUN 12, Creatinine 0.78, Estim Creat Clear Calc 45.82, Est GFR (MDRD) Af Amer 93, Est GFR (MDRD) Non-Af 77, BUN/Creatinine Ratio 15.5, Gluc ose 84, Calcium 7.5 L, Total Bilirubin 0.60, AST 109 H, ALT 264 H, Alkaline Phosphatase 122 H, Total Protein 5.8 L, Albumin 2.5 L, Globulin 3.3, Album in/Globulin Ratio 0.8 L Physical Exam Const Constitutional Narrative: Groggy. She easily confused with basic questioning. Resp normal respiratory effort, no retractions, no use of accessory muscles and clear to auscultation bilaterally Cardio regular rate, regular rhythm, S1 normal heart sound and S2 normal heart sound GI normal to inspection, nondistended, normoactive bowel sounds, soft to palpation, non-tender and non-distended Extremity normal to inspection Assessment & Plan Assessment/Plan (1) Acute biliary pancreatitis: PLAN: Acute gallstone pancreatitis -Gallbladder ultrasound demonstrated multiple gallstones and gallbladder distention to 10.4 cm with no increased wall thickness or pericholecystic fluid but has elevated bili as well as liver function tests and a lipase of 23,197 -CT of the abdomen with acute interstitial edematous pancreatitis 09/01: Patient underwent a laparoscopic cholecystectomy with intraoperative cholangiogram. Was having a fever overnight and started on meropenem. Advance diet per general surgery. PLAN: Plan Chronic conditions: * Hypothyroidism-Continue Synthroid daily * SREEKANTH-CPAP nightly * Group 3 pulmonary hypertension-Last echo demonstrated EF of 65% with RVSP estimated to be 40 mmHg-Follows with Dr. Stroud as an outpatient-Is on Lasix twice daily, will hold this given presenting problem and monitor clinically- Continue to assess for ability to DC fluids or for signs and symptoms of overload DVT ppx: Lovenox subq Charges/Coding Visit Charges Inpatient E&M: 18325 Subs Hosp L2
--- NOTE | 2022-09-01 08:33 | PN.SURG_ITS ---
Subjective Subjective Patient seen and examined during AM rounds. She reports that she had more pain overnight, but admits that this was primarily due to her difficulty in finding sleep. She happily reports that her fevers are better. Objective Data Objective Data Vital Signs: Vital Signs Temp Pulse Resp BP Pulse Ox O2 Del Method 99.3 F H 102 H 18 162/63 H 95 Room Air 09/01/22 06:26 09/01/22 06:26 09/01/22 06:26 09/01/22 06:26 09/01/22 06:26 09/01/22 06:26 Oxygen Delivery Method Room Air Weight: 221 lb 4.8 oz Body Mass Index (BMI) 34.6 Intake & Output: Intake and Output for Last 24 Hours 08/30/22 08/31/22 09/01/22 23:59 23:59 23:59 Intake Total 3802.5 / 3802.5 1097.5 / 1097.5 Output Total 200 / 200 Balance 3802.5 / 3602.5 897.5 / 897.5 Lab / Micro Data Result Diagrams: 08/31/22 06:50 09/01/22 06:30 Labs: Laboratory Results - last 24 hr 08/31/22 06:50: ESR 19 08/31/22 06:50: Ferritin 98, C-React Prot Ext Range 32.70 H, Amylase 1296 H, Lipase 96044 H 08/31/22 14:30: PT 14.2, INR 1.1 09/01/22 06:30: Sodium 144, Potassium 3.4 L, Chloride 114 H, Carbon Dioxide 21.0, Anion Gap 9, BUN 12, Creatinine 0.78, Estim Creat Clear Calc 45.82, Est G FR (MDRD) Af Amer 93, Est GFR (MDRD) Non-Af 77, BUN/Creatinine Ratio 15.5, Glucose 84, Calcium 7.5 L, Total Bilirubin 0.60, AST 109 H, ALT 264 H, Alkaline Phosphatase 122 H, Total Protein 5.8 L, Albumin 2.5 L, Globulin 3.3, Albumin/Globulin Ratio 0.8 L Physical Exam Const oriented x3 and no apparent distress Resp normal respiratory effort GI GI Narrative: Mildly distended, soft, mildly tender to palpation (rated 2-3 out of 10) and epigastrium, nontender to palpation right upper quadrant Assessment & Plan Assessment/Plan (1) Acute biliary pancreatitis: PLAN: This is a 77-year-old female admitted for acute pancreatitis?believed to be related to a biliary origin given her concurrent elevation of liver enzymes. Patient was stable physical exam after reporting more pain overnight. All of her biochemical indices appear to be trending appropriately. We will therefore plan to proceed to the operating room for laparoscopic cholecystectomy and intraoperative cholangiogram as previously arranged. ? Continue n.p.o. with IV fluid resuscitation (patient's lung history and diuretic dependence should be considered) ? Trend CMP ? Plan for laparoscopic cholecystectomy with IOC (and ERCP if warranted) today 09/01/2022 (hold Lovenox)
[2022-09-01] MEDS: 0.9% Normal Saline 1,000 ML 15 ML IV (09:26)
[2022-09-01] MEDS: Cefazolin 2 GM in 0.9% Normal Saline 100 ML IV (10:28)
--- NOTE | 2022-09-01 10:55 | RAD_ITS ---
PROCEDURE: Intraoperative cholangiogram DATE OF EXAMINATION: September 01, 2022 INDICATION: Female, 77 years old. Abdominal pain PHYSICIAN: Referring Fernando Coon FLUOROSCOPY TIME (if supplied): (35 seconds) minutes/seconds RADIATION DOSAGE (If Supplied By Facility): CTDIvol = ( 26.22 ) mGy, DLP = ( ) mGycm PROCEDURE/TECHNIQUE: (All elements of maximal sterile barrier technique followed, including US elements as applicable) The risks, benefits, and alternatives to the procedure were explained to patient, and the patient agreed to the procedure and signed a consent form for the procedure. A timeout was performed to confirm the patient''s identity, the type of procedure, to be performed and the site of entry. Comparison study: Gallbladder ultrasound and CT of abdomen and pelvis dated August 30, 2022. FINDINGS: Intraoperative surgical instrumentation seen in the diallo hepatis region and overlying the liver. Contrast outlines the common bile duct and the main right and left intrahepatic biliary ducts. Cholecystectomy clips are present. No filling defects are identified. There is no biliary ductal dilatation. There is free passage into the duodenum. No extraluminal leakage of contrast is seen outside of the biliary ducts or bowel. RAD/Cholangiogram/ O R,Initial IMPRESSION: 1. Status post intrahepatic cholangiogram without abnormalities 2. Status post cholecystectomy Electronically Signed: Anthony Rocha MD at 13:22 EDT ,
--- NOTE | 2022-09-01 12:14 | OP.PCM_ITS ---
Report of Operation Date of Procedure: 09/01/22 Pre-Operative Diagnosis: Gallstone pancreatitis Post-Operative Diagnosis: 1. Gallstone pancreatitis 2. Chronic cholecystitis Surgery/Procedure Performed:: Laparoscopic cholecystectomy with intraoperative cholangiogram Description of Surgical Findings:: - normal gallbladder anatomy with distended gallbladder and evidence of chronic inflammation Surgeon: Fernando Jean-Baptiste director pediatric: Dolores Hampton Type of Anesthesia: General/Supplemental Anesthesiologist: Rudy Fierro Special Medications: NA Specimen's removed: Gallbladder Drains: None Estimated Blood Loss (mL): 25 Description of Procedure: After proper identification in the preoperative holding area the patient was brought to the operating room where positioned supine on the operating room table. Preoperatively due to prophylaxis Lovenox sparing was held on the account of bleeding risk, but SCDs were placed and antibiotics were administered (in addition to the continuous antibiotics patient was getting empirically on the floor). General anesthesia was then induced. Patient's abdomen was prepped and draped in usual sterile fashion. A formal timeout was conducted to confirm both patient and the procedure. Procedure was begun with a supraumbilical incision which was extended deeply down to the level of the fascia. The fascia was elevated and incised, as well as the peritoneum. A finger sweep was performed to ensure there were no underlying adhesions and a 12 mm balloon trocar was inserted. Pneumoperitoneum was established at 15 mmHg. 3 additional trocars were placed in the epigastrium and in the right upper quadrant (3 x 5 mm). Inspection of the peritoneum revealed no inadvertent injury to the viscera below but there is obvious swelling of the retroperitoneum and serous ascites. The liver (and therefore the gallbladder) were not immediately visible behind the hepatic flexure of the colon, but with reverse Trendelenburg positioning we were able to visualize the liver and the gallbladder. The gallbladder was distended and exhibited mild chronic inflammation. The gallbladder fundus was then grasped and elevated cephalad. During this retraction, an inadvertent rent was made in the gallbladder resulting in local spillage which was promptly suctioned with our suction loan assistant. The grasper then was reapplied over the rent in the gallbladder and return to traction. Then, using careful dissection the peritoneum was opened and the structures of the hepatocystic triangle were delineated. The takeoff of the cystic duct was quite proximal, but I was able to establish some length by cauterizing several fibrous tethers. Once the critical view of safety was obtained, the cystic duct was singly clipped distally and using an Grover Yumiko clamp, a cholangiocatheter was fed into the proximal segment of the cystic duct and clamped into place. Under fluoroscopy a cholangiogram was then obtained showing a normal length cystic duct flowing into a common bile duct with unobstructed antegrade flow of contrast into the duodenum. There was also retrograde flow through the common hepatic duct into the right and left hepatic ducts. Satisfied with this result, the cholangiocatheter was withdrawn and the proximal cystic duct was doubly clipped and sharply divided. The same process was used for the cystic artery. The gallbladder was then removed from the gallbladder fossa with the use of electrocautery. Selective electrocautery was used to obtain hemostasis in the gallbladder fossa. The gallbladder was placed in an Endo Catch bag and removed from the peritoneum. Given the local spillage of bile, at least 1 L of sterile saline was used to irrigate Morison's pouch and the effluent was suctioned free of the peritoneum. Hemostasis was again confirmed in the gallbladder fossa. Pneumoperitoneum was evacuated and the fascia of the 12 mm port sites was closed with #1Vicryl in a [id number] fashion. 0.25% bupivacaine local anesthetic was injected at the port sites for postoperative pain control. The skin of each port site was then closed in subcuticular fashion using 4-0 Monocryl. Steri-Strips and bandages were applied as dressings. Patient tolerated the procedure well without any apparent complications. On emergence from their anesthetic the patient was taken to PACU for ongoing recovery. Grafts/Implants Used: NA Complications None Admit VTE Documentation VTE Mechan Device Prophylaxis: SCD's Procedures Digestive 40xxx-49xxx: 60981 Laparo cholecystectomy/graph
--- NOTE | 2022-09-01 17:40 | PN_ITS ---
Subjective Subjective Patient underwent unsuccessful cholecystectomy today. She denies any abdominal pain. She denies any nausea, headache or dizziness. Objective Data Objective Data Vital Signs: Vital Signs Temp Pulse Resp BP Pulse Ox O2 Del Method O2 Flow Rate 98.5 F 84 18 118/59 L 96 Nasal Cannula 3 09/01/22 16:15 09/01/22 16:15 09/01/22 16:15 09/01/22 16:15 09/01/22 16:15 09/01/22 16:35 09/01/22 16:35 Oxygen Flow Rate (L/min) 3 Oxygen Delivery Method Nasal Cannula Weight: 221 lb 4.8 oz Body Mass Index (BMI) 34.6 Intake & Output: Intake and Output for Last 24 Hours 08/30/22 08/31/22 09/01/22 23:59 23:59 23:59 Intake Total 3802.5 / 3802.5 1827.5 / 1827.5 Output Total 200 / 200 Balance 3802.5 / 3602.5 1627.5 / 1627.5 Lab / Micro Data Result Diagrams: 08/31/22 06:50 09/01/22 06:30 Labs: Laboratory Results - last 24 hr 09/01/22 06:30: Sodium 144, Potassium 3.4 L, Chloride 114 H, Carbon Dioxide 21.0, Anion Gap 9, BUN 12, Creatinine 0.78, Estim Creat Clear Calc 45.82, Est GFR (MDRD) Af Amer 93, Est GFR (MDRD) Non-Af 77, BUN/Creatinine Ratio 15.5, Glucose 84, Calcium 7.5 L, Total Bilirubin 0.60, AST 109 H, ALT 264 H, Alkaline Phosphatase 122 H, Total Protein 5.8 L, Albumin 2.5 L, Globulin 3.3, Albumin/Globulin Ratio 0.8 L Radiography Diagnostic Testing: Radiology Impression Cholangiogram 09/01/22 10:55 IMPRESSION: 1. Status post intrahepatic cholangiogram without abnormalities 2. Status post cholecystectomy Electronically Signed: Anthony Rocha MD at 13:22 EDT , Physical Exam Narrative General: Alert, oriented, no apparent distress HEENT: Atraumatic, normocephalic Eyes: Anicteric, normal conjunctiva, extraocular movements grossly intact Neck: Supple Respiratory: Clear to auscultation bilaterally, normal respiratory effort Cardiovascular: Regular rate and rhythm GI: Tender diffusely but primarily in the epigastric region, no rebound, guardi ng, rigidity, decreased bowel sounds Extremities: No edema Musculoskeletal: Moving all extremities Neuro: No overt focal neurological deficits Skin: No rashes appreciated Psych: Cooperative Resp normal respiratory effort, no retractions, no use of accessory muscles and clear to auscultation bilaterally Cardio regular rate, regular rhythm, S1 normal heart sound and S2 normal heart sound GI normal to inspection, nondistended, normoactive bowel sounds, soft to palpation, non-tender and non-distended Extremity normal to inspection Assessment & Plan Assessment/Plan (1) Acute biliary pancreatitis: PLAN: Her amylase lipase is decreasing nicely. Recommend continue IV fluids at current rate. Repeat ESR, CRP and amylase and lipase tomorrow. I am okay with advancing her diet as tolerated. (2) Cholelithiasis: PLAN: Status postcholecystectomy today without any problems. Cholangiogram did not show any abnormalities or filling defects in the distal common bile duct. Charges/Coding Visit Charges Inpatient E&M: 29818 Subs Hosp L3
[2022-09-01] MEDS: 0.9% Saline Lock 10 ML Syringe IV (22:39)
[2022-09-02 03:12] VITALS: BP 109/51; PULSE 62; RESP 18; TEMP 36.4; O2SAT 96
[2022-09-02] MEDS: 0.9% Normal Saline 1,000 ML 150 ML IV (03:15)
[2022-09-02 06:00] VITALS: BMI 35.2
[2022-09-02 06:14] LABS: Absolute Lymphocyte Count 0.88 X10^3/uL (0.83-4.51); Basophil# 0.01 X10^3/uL; Basophil% 0.1 % (0-1); Hematocrit 37.3 % (37-47); Hemoglobin 11.4 g/dL (12.0-15.0); Lymphocyte # 0.88 X10^3/ul (0.83-4.51); Lymphocyte % 10.6 % (19-41); Mean Corp Hgb Conc 30.6 g/dL (32-36); Mean Corpuscular Hgb 28.8 pg (27.0-32.0); Mean Corpuscular Volume 94.2 fL (81-99); Mean Platelet Vol. 11.9 fl (6.2-12.0); Monocyte# 0.34 X10^3/uL; Monocyte% 4.1 % (0-10); NRBC Flagged by Analyzer 0 % (0-5); Neutrophil # 7.03 X10^3/uL (2.7-7.7); Neutrophil % 84.8 % (47-70); Platelet Count 150 K/mm3 (150-450); RBC Distribution Width CV 14.4 % (11.6-14.6); RBC Distribution Width SD 50.3 fl (35.1-43.9); Red Blood Count 3.96 M/mm3 (4.2-5.4); White Blood Count 8.3 K/mm3 (4.4-11.0)
[2022-09-02 06:33] VITALS: BP 125/59; PULSE 73; RESP 18; TEMP 36.8; O2SAT 99
[2022-09-02] MEDS: Levothyroxine 100 MCG Tablet PO (06:37)
[2022-09-02] MEDS: Pregabalin 50 MG Capsule 100 MG PO ×3 (06:37→21:31)
[2022-09-02 06:40] LABS: Anion Gap 8 (5-15); BUN 16 mg/dL (7-18); BUN/Creat Ratio 25.6 RATIO (10-20); Calcium,Total 7.5 mg/dL (8.5-10.1); Chloride 116 mmol/L (98-107); Creatinine, Serum 0.62 mg/dL (0.55-1.02); EST Glomerular Filtration Rate 98 mL/min (>60); Est Glom Filt Rate - Afr Amer 119 mL/min (>60); Estimated Creatinine Clearance 45.82 ml/min; Glucose 120 mg/dL (74-106); Sodium Level 145 mmol/L (136-145)
--- NOTE | 2022-09-02 07:39 | PN.HOSP_ITS ---
Reason for Visit Reason for Visit: Diagnoses Secondary pulmonary arterial hypertension (08/30/22) Calculus of gallbladder without cholecystitis without obstruction (08/30/22) Biliary acute pancreatitis without necrosis or infection (08/30/22) Subjective Subjective Abdomen feeling better. Anxious to start having clears. Objective Data Objective Data Vital Signs: Vital Signs Temp Pulse Resp BP Pulse Ox O2 Del Method O2 Flow Rate 36.8 C 73 18 125/59 H 99 Room Air 2 09/02/22 06:33 09/02/22 06:33 09/02/22 06:33 09/02/22 06:33 09/02/22 06:33 09/02/22 06:33 09/01/22 18:15 Oxygen Flow Rate (L/min) 2 Oxygen Delivery Method Room Air Weight: 102 kg Body Mass Index (BMI) 35.2 Intake & Output: Intake and Output for Last 24 Hours 08/31/22 09/01/22 09/02/22 23:59 23:59 23:59 Intake Total 3802.5 / 3802.5 3019.75 / 3019.75 820 / 820 Output Total 650 / 650 Balance 3802.5 / 3602.5 2369.75 / 2369.75 820 / 820 Lab / Micro Data Result Diagrams: 09/02/22 05:50 09/02/22 05:50 Labs: Laboratory Results - last 24 hr 09/02/22 05:50: WBC 8.3, RBC 3.96 L, Hgb 11.4 L, Hct 37.3, MCV 94.2, MCH 28.8, MCHC 30.6 L, RDW Std Deviation 50.3 H, RDW Coeff of Rajinder 14.4, Plt Count 150, MPV 11.9, Immature Gran % (Auto) 0.400, Neut % (Auto) 84.8 H, Lymph % (Auto) 10.6 L, [place] % (Auto) 4.1, Eos % (Auto) 0.0, Baso % (Auto) 0.1, Absolute Neuts (auto) 7.0, Absolute Lymphs (auto) 0.88, Nucleated RBC % 0 09/02/22 05:50: Sodium 145, Potassium 4.0, Chloride 116 H, Carbon Dioxide 21.0, Anion Gap 8, BUN 16, Creatinine 0.62, Estim Creat Clear Calc 45.82, Est GFR (MDRD) Af Amer 119, Est GFR (MDRD) Non-Af 98, BUN/Creatinine Ratio 25.6 H, Glucose 120 H, Calcium 7.5 L Radiography Diagnostic Testing: Radiology Impression Cholangiogram 09/01/22 10:55 IMPRESSION: 1. Status post intrahepatic cholangiogram without abnormalities 2. Status post cholecystectomy Electronically Signed: Anthony Rocha MD at 13:22 EDT Reading Location ID and State: [facility] / MD , Service support , Physical Exam Const alert Resp normal respiratory effort, no retractions, no use of accessory muscles and clear to auscultation bilaterally Cardio regular rate, regular rhythm, S1 normal heart sound and S2 normal heart sound GI normal to inspection, nondistended, normoactive bowel sounds, soft to palpation, non-tender and non-distended Neuro oriented x3 Sensorium / Orientation: awake and alert Assessment & Plan Assessment/Plan (1) Acute biliary pancreatitis: PLAN: Acute gallstone pancreatitis -Gallbladder ultrasound demonstrated multiple gallstones and gallbladder distention to 10.4 cm with no increased wall thickness or pericholecystic fluid but has elevated bili as well as liver function tests and a lipase of 23,197 -CT of the abdomen with acute interstitial edematous pancreatitis 09/01: Patient underwent a laparoscopic cholecystectomy with intraoperative cholangiogram. Was having a fever overnight and started on meropenem, which has subsequent been discontinued. Advance diet per general surgery. (2) Transaminitis: PLAN: Improving. Secondary to choledocholithiasis. Acute hepatitis profile pending Antimitochondrial antibody and anti-smooth muscle antibody pending PLAN: Plan Chronic conditions: * Hypothyroidism-Continue Synthroid daily * SREEKANTH-CPAP nightly * Group 3 pulmonary hypertension-Last echo demonstrated EF of 65% with RVSP estimated to be 40 mmHg-Follows with Dr. Stroud as an outpatient-Is on Lasix twice daily, will hold this given presenting problem and monitor clinically- Continue to assess for ability to DC fluids or for signs and symptoms of overload DVT ppx: Lovenox subq Charges/Coding Visit Charges Inpatient E&M: 26775 Subs Hosp L2
[2022-09-02 08:16] VITALS: BP 126/91; PULSE 80; RESP 16; TEMP 36.7; O2SAT 99
[2022-09-02 08:46] VITALS: O2SAT 99
--- NOTE | 2022-09-02 09:37 | PN.SURG_ITS ---
Subjective Subjective Patient seen and examined during AM rounds. She is found sitting upright in bed. She reports that her abdominal discomfort is minimal and that she is feeling sleepy this morning. She denies a strong appetite, but does complain of thirst. She also remarks that she is feeling more swelling in her hands. Objective Data Objective Data Vital Signs: Vital Signs Temp Pulse Resp BP Pulse Ox O2 Del Method O2 Flow Rate 98.1 F 80 16 126/91 H 99 Room Air 2 09/02/22 08:16 09/02/22 08:16 09/02/22 08:16 09/02/22 08:16 09/02/22 08:46 09/02/22 08:46 09/01/22 18:15 Oxygen Flow Rate (L/min) 2 Oxygen Delivery Method Room Air Weight: 224 lb 13.944 oz Body Mass Index (BMI) 35.2 Intake & Output: Intake and Output for Last 24 Hours 08/31/22 09/01/22 09/02/22 23:59 23:59 23:59 Intake Total 3802.5 / 3802.5 3019.75 / 3019.75 861 / 861 Output Total 650 / 650 Balance 3802.5 / 3602.5 2369.75 / 2369.75 861 / 861 Lab / Micro Data Result Diagrams: 09/02/22 05:50 09/02/22 05:50 Labs: Laboratory Results - last 24 hr 09/02/22 05:50: WBC 8.3, RBC 3.96 L, Hgb 11.4 L, Hct 37.3, MCV 94.2, MCH 28.8, MCHC 30.6 L, RDW Std Deviation 50.3 H, RDW Coeff of Rajinder 14.4, Plt Count 150, MPV 11.9, Immature Gran % (Auto) 0.400, Neut % (Auto) 84.8 H, Lymph % (Auto) 10.6 L, [place] % (Auto) 4.1, Eos % (Auto) 0.0, Baso % (Auto) 0.1, Absolute Neuts (auto) 7.0, Absolute Lymphs (auto) 0.88, Nucleated RBC % 0 09/02/22 05:50: Sodium 145, Potassium 4.0, Chloride 116 H, Carbon Dioxide 21.0, Anion Gap 8, BUN 16, Creatinine 0.62, Estim Creat Clear Calc 45.82, Est GFR (MDRD) Af Amer 119, Est GFR (MDRD) Non-Af 98, BUN/Creatinine Ratio 25.6 H, Glucose 120 H, Calcium 7.5 L Radiography Diagnostic Testing: Radiology Impression Cholangiogram 09/01/22 10:55 IMPRESSION: 1. Status post intrahepatic cholangiogram without abnormalities 2. Status post cholecystectomy Electronically Signed: Anthony Rocha MD at 13:22 EDT , Physical Exam Const oriented x3 and no apparent distress Resp Resp Narrative: Patient's vital capacity somewhat diminished as she is only able to achieve 900 mL with the incentive spirometer GI GI Narrative: Mildly distended, operative sites with operative dressings intact and no strikethrough. Patient denies any pain from her port sites but reports very mild tenderness in the epigastrium rated a 2/10 with deep palpation Assessment & Plan Assessment/Plan (1) Acute biliary pancreatitis: PLAN: This is a 77-year-old female admitted for acute pancreatitis?believed to be related to a biliary origin given her concurrent elevation of liver enzymes. Patient now postoperative day 1 from laparoscopic cholecystectomy with i ntraoperative cholangiogram. Cholangiogram did not demonstrate any filling defects so no ERCP was undertaken. Patient with decreased epigastric pain today. (2) Status post cholecystectomy: PLAN: Patient postoperative day 1 from lap lissette with IOC. Negative IOC as above. Patient with improved clinical exam, but increasing anasarca. Given that OR proceeded in uncomplicated fashion yesterday and clinical appearance is improved, would recommend scaling back pancreatitis treatment measures. Specifically recommend: ? Decreased IV fluids ? Trial clear liquids with protein supplementation ? Stop antibiotics (now that we have assured the biliary tract is unobstructed) ? Patient could be started back on Lovenox tomorrow as long as hemoglobin remained stable to improved The above measures were discussed with patient's primary team and orders were adjusted accordingly after confirming agreement Charges/Coding Visit Charges Inpatient E&M: 04400 Subs Hosp L2
[2022-09-02] MEDS: 0.9% Normal Saline 1,000 ML 75 ML IV ×2 (10:23→21:31)
[2022-09-02] MEDS: Ensure Clear 120 ML Liquid PO ×2 (11:36→15:25)
[2022-09-02 15:09] LABS: HEPATITIS B SURFACE AG Negative (Negative); Hep C Antibodies Non Reactive (Non Reactive); Hepatitis A IgM Antibody Negative (Negative); Hepatitis B Core AB IgM Negative (Negative)
[2022-09-02 15:44] VITALS: BP 124/68; PULSE 76; RESP 17; TEMP 36.3; O2SAT 100
[2022-09-02 15:56] LABS: Anti-Mitochondrial AB <20.0 Units (0.0-20.0)
[2022-09-02 15:57] LABS: Anti-Smooth Muscle ABS 3 Units (0-19); Carbohydrate AG 19-9 45 U/mL (0-35); Carcinoembryonic Antigen 0.6 ng/mL (0.0-4.7)
[2022-09-02] MEDS: 0.9% Saline Lock 10 ML Syringe IV (17:04)
--- NOTE | 2022-09-02 18:04 | PN_ITS ---
Subjective Subjective Patient underwent successful cholecystectomy. She complains of some mild nausea. She denies any chest pain or shortness of breath. She denies any dark stools. Objective Data Objective Data Vital Signs: Vital Signs Temp Pulse Resp BP Pulse Ox O2 Del Method O2 Flow Rate 97.4 F L 76 17 124/68 H 100 Room Air 2 09/02/22 15:44 09/02/22 15:44 09/02/22 15:44 09/02/22 15:44 09/02/22 15:44 09/02/22 15:44 09/01/22 18:15 Oxygen Flow Rate (L/min) 2 Oxygen Delivery Method Room Air Weight: 224 lb 13.944 oz Body Mass Index (BMI) 35.2 Intake & Output: Intake and Output for Last 24 Hours 08/31/22 09/01/22 09/02/22 23:59 23:59 23:59 Intake Total 3802.5 / 3802.5 3019.75 / 3019.75 2052 Output Total 650 / 650 Balance 3802.5 / 3602.5 2369.75 / 2369.75 2052 Lab / Micro Data Result Diagrams: 09/02/22 05:50 09/02/22 05:50 Labs: Laboratory Results - last 24 hr 08/31/22 21:00: Anti-Mitochondrial Ab <20.0 08/31/22 21:00: Carcinoembryonic Ag 0.6, CA 19-9 Antigen 45 H, Anti-Smooth Muscle Ab 3, Hepatitis A IgM Ab Negative, Hep Bs Antigen Negative, Hep B Core IgM Ab Negative, Hepatitis C Ab (EIA) Non Reactive, Hep C Ab Comment Comment 09/02/22 05:50: WBC 8.3, RBC 3.96 L, Hgb 11.4 L, Hct 37.3, MCV 94.2, MCH 28.8, MCHC 30.6 L, RDW Std Deviation 50.3 H, RDW Coeff of Rajinder 14.4, Plt Count 150, MPV 11.9, Immature Gran % (Auto) 0.400, Neut % (Auto) 84.8 H, Lymph % (Auto) 10.6 L, [place] % (Auto) 4.1, Eos % (Auto) 0.0, Baso % (Auto) 0.1, Absolute Neuts (auto) 7.0, Absolute Lymphs (auto) 0.88, Nucleated RBC % 0 09/02/22 05:50: Sodium 145, Potassium 4.0, Chloride 116 H, Carbon Dioxide 21.0, Anion Gap 8, BUN 16, Creatinine 0.62, Estim Creat Clear Calc 45.82, Est GFR (MDRD) Af Amer 119, Est GFR (MDRD) Non-Af 98, BUN/Creatinine Ratio 25.6 H, Glucose 120 H, Calcium 7.5 L Physical Exam Const alert Resp normal respiratory effort, no retractions, no use of accessory muscles and clear to auscultation bilaterally Cardio regular rate, regular rhythm, S1 normal heart sound and S2 normal heart sound GI normal to inspection, nondistended, normoactive bowel sounds, soft to palpation, non-tender and non-distended Neuro oriented x3 Sensorium / Orientation: awake and alert Assessment & Plan Assessment/Plan (1) Acute biliary pancreatitis: PLAN: Her amylase lipase is decreasing nicely. Agree with decreasing IV fluids as she is showing some signs of edema. Repeat ESR, CRP and amylase and lipase tomorrow. I am okay with advancing her diet as tolerated. (2) Cholelithiasis: PLAN: Status postcholecystectomy today without any problems. Cholangiogram did not show any abnormalities or filling defects in the distal common bile duct. Recommendations as per surgery Charges/Coding Visit Charges Inpatient E&M: 76330 Subs Hosp L3
[2022-09-02 21:00] VITALS: BP 118/64; PULSE 68; RESP 18; TEMP 36.6; O2SAT 99
[2022-09-03 03:00] VITALS: BP 126/62; PULSE 87; RESP 16; TEMP 36.6; O2SAT 100
[2022-09-03 06:00] VITALS: BMI 36.4
[2022-09-03] MEDS: Levothyroxine 100 MCG Tablet PO (06:32)
[2022-09-03] MEDS: Pregabalin 50 MG Capsule 100 MG PO ×3 (06:33→20:33)
--- NOTE | 2022-09-03 06:53 | PCM.PN.SRG ---
Subjective Subjective Patient seen and examined during AM rounds. She is found resting comfortably out of bed in a chair. She reports tolerance of her diet without any nausea or belching, but denies significant appetite. Objective Data Objective Data Vital Signs: Vital Signs Temp Pulse Resp BP Pulse Ox O2 Del Method O2 Flow Rate 97.9 F 87 16 126/62 H 100 CPAP 2 09/03/22 03:00 09/03/22 03:00 09/03/22 03:00 09/03/22 03:00 09/03/22 03:00 09/03/22 03:00 09/01/22 18:15 Oxygen Flow Rate (L/min) 2 Oxygen Delivery Method CPAP Weight: 232 lb 5.875 oz Body Mass Index (BMI) 36.4 Intake & Output: Intake and Output for Last 24 Hours 09/01/22 09/02/22 09/03/22 23:59 23:59 23:59 Intake Total 3019.75 / 3019.75 2888 / 2888 Output Total 650 / 650 Balance 2369.75 / 2369.75 2888 / 2888 Lab / Micro Data Result Diagrams: 09/03/22 06:35 09/03/22 06:35 Labs: Laboratory Results - last 24 hr 08/31/22 21:00: Anti-Mitochondrial Ab <20.0 08/31/22 21:00: Carcinoembryonic Ag 0.6, CA 19-9 Antigen 45 H, Anti-Smooth Muscle Ab 3, Hepatitis A IgM Ab Negative, Hep Bs Antigen Negative, Hep B Core IgM Ab Negative, Hepatitis C Ab (EIA) Non Reactive, Hep C Ab Comment Comment Physical Exam Const oriented x3 and no apparent distress Resp normal respiratory effort GI GI Narrative: Abdomen distended, operative dressings were intact without drainage, but once removed the Steri-Strips remain intact and the port sites are well-appearing without surrounding erythema or drainage. There is abdominal tenderness with palpation of the epigastrium which patient rates a 3 out of 10 Extremity Extremity Narrative: Anasarca present Assessment & Plan Assessment/Plan (1) Acute biliary pancreatitis: PLAN: This is a 77-year-old female admitted for acute pancreatitis?believed to be related to a biliary origin given her concurrent elevation of liver enzymes. Patient now postoperative day 2 from laparoscopic cholecystectomy with intraoperative cholangiogram. Cholangiogram did not demonstrate any filling defects so no ERCP was undertaken. Patient with stable abdominal exam today. Anasarca appears somewhat worsened. Given patient's history of reported lung scarring, SREEKANTH, and chronic dyspnea I would recommend beginning diuresis. Unfortunately intake and output totals do not appear reliable, but patient's weight of 232 pounds today is 29 pounds up from her admit weight. (2) Status post cholecystectomy: PLAN: Patient postoperative day 2 from lap lissette with IOC. Negative IOC as above. Patient with stable/improved clinical exam, but increasing anasarca. Patient continues slow progress. Specifically recommend: ? Strong consideration of beginning diuresis (can continue IV fluids if concerned about inadequate p.o. intake), institute stricter I's and O's ? Advance to full liquid diet with protein supplementation ? Stop antibiotics (now that we have assured the biliary tract is unobstructed) ? Patient can be started back on Lovenox today now that hemoglobin is stable The above measures were discussed with patient's primary team
[2022-09-03 07:09] LABS: Absolute Lymphocyte Count 2.06 X10^3/uL (0.83-4.51); Absolute Neutrophil Count 5.9 X10^3/uL (2.0-7.7); Basophil# 0.02 X10^3/uL; Basophil% 0.2 % (0-1); Eosinophil# 0.04 X10^3/uL; Eosinophils% 0.5 % (0-5); Hematocrit 35.9 % (37-47); Hemoglobin 11.3 g/dL (12.0-15.0); Lymphocyte # 2.06 X10^3/ul (0.83-4.51); Lymphocyte % 24.2 % (19-41); Mean Corp Hgb Conc 31.5 g/dL (32-36); Mean Corpuscular Volume 92.1 fL (81-99); Mean Platelet Vol. 11.7 fl (6.2-12.0); Monocyte% 5.9 % (0-10); NRBC Flagged by Analyzer 0 % (0-5); Neutrophil # 5.85 X10^3/uL (2.7-7.7); Neutrophil % 68.8 % (47-70); Platelet Count 167 K/mm3 (150-450); RBC Distribution Width CV 14.6 % (11.6-14.6); RBC Distribution Width SD 48.9 fl (35.1-43.9); White Blood Count 8.5 K/mm3 (4.4-11.0)
[2022-09-03 07:47] LABS: ALB/GLOB Ratio 0.7 RATIO (0.9-2.4); AST(SGOT) 30 U/L (15-37); Alanine Aminotransfer ALT/SGPT 107 U/L (13-56); Albumin, Serum 2.3 g/dL (3.2-5.0); Alkaline Phosphatase 85 U/L (45-117); Anion Gap 7 (5-15); BUN 16 mg/dL (7-18); BUN/Creat Ratio 27.2 RATIO (10-20); Calcium,Total 7.6 mg/dL (8.5-10.1); Chloride 116 mmol/L (98-107); Creatinine, Serum 0.59 mg/dL (0.55-1.02); EST Glomerular Filtration Rate 105 mL/min (>60); Est Glom Filt Rate - Afr Amer 127 mL/min (>60); Estimated Creatinine Clearance 45.82 ml/min; Globulin 3.2 g/dL (2.2-4.2); Glucose 98 mg/dL (74-106); Potassium 3.5 mmol/L (3.5-5.1); Protein, Total 5.5 g/dL (6.4-8.2); Sodium Level 145 mmol/L (136-145)
--- NOTE | 2022-09-03 08:07 | PN.HOSP_ITS ---
Reason for Visit Reason for Visit: Diagnoses Secondary pulmonary arterial hypertension (08/30/22) Calculus of gallbladder without cholecystitis without obstruction (08/30/22) Biliary acute pancreatitis without necrosis or infection (08/30/22) Elevation of levels of liver transaminase levels (08/30/22) Acquired absence of other specified parts of digestive tract (08/30/22) Subjective Subjective Not much appetite. Objective Data Objective Data Vital Signs: Vital Signs Temp Pulse Resp BP Pulse Ox O2 Del Method O2 Flow Rate 36.6 C 87 16 126/62 H 100 CPAP 2 09/03/22 03:00 09/03/22 03:00 09/03/22 03:00 09/03/22 03:00 09/03/22 03:00 09/03/22 03:00 09/01/22 18:15 Oxygen Flow Rate (L/min) 2 Oxygen Delivery Method CPAP Weight: 105.4 kg Body Mass Index (BMI) 36.4 Intake & Output: Intake and Output for Last 24 Hours 09/01/22 09/02/22 09/03/22 23:59 23:59 23:59 Intake Total 3019.75 / 3019.75 2888 / 2888 Output Total 650 / 650 Balance 2369.75 / 2369.75 2888 / 2888 Lab / Micro Data Result Diagrams: 09/03/22 06:35 09/03/22 06:35 Labs: Laboratory Results - last 24 hr 08/31/22 21:00: Anti-Mitochondrial Ab <20.0 08/31/22 21:00: Carcinoembryonic Ag 0.6, CA 19-9 Antigen 45 H, Anti-Smooth Muscle Ab 3, Hepatitis A IgM Ab Negative, Hep Bs Antigen Negative, Hep B Core IgM Ab Negative, Hepatitis C Ab (EIA) Non Reactive, Hep C Ab Comment Comment 09/03/22 06:35: WBC 8.5, RBC 3.90 L, Hgb 11.3 L, Hct 35.9 L, MCV 92.1, MCH 29.0, MCHC 31.5 L, RDW Std Deviation 48.9 H, RDW Coeff of Rajinder 14.6, Plt Count 167, MPV 11.7, Immature Gran % (Auto) 0.400, Neut % (Auto) 68.8, Lymph % (Auto) 24.2, [place] % (Auto) 5.9, Eos % (Auto) 0.5, Baso % (Auto) 0.2, Absolute Neuts (auto) 5.9, Absolute Lymphs (auto) 2.06, Nucleated RBC % 0 09/03/22 06:35: Sodium 145, Potassium 3.5, Chloride 116 H, Carbon Dioxide 22.0, Anion Gap 7, BUN 16, Creatinine 0.59, Estim Creat Clear Calc 45.82, Est GFR (MDR D) Af Amer 127, Est GFR (MDRD) Non-Af 105, BUN/Creatinine Ratio 27.2 H, Glucose 98, Calcium 7.6 L, Total Bilirubin 0.40, AST 30, ALT 107 H, Alkaline Phosphatase 85, Total Protein 5.5 L, Albumin 2.3 L, Globulin 3.2, Albumin/Globulin Ratio 0.7 L Micro: Microbiology 08/31/22 23:09 Blood Culture (Wb) - Right Wrist Blood Culture - Preliminary No growth in 48 hours. 08/31/22 23:00 Blood Culture (Wb) - Right Forearm Blood Culture - Preliminary No growth in 48 hours. Physical Exam Const alert and no apparent distress Resp normal respiratory effort, no retractions, no use of accessory muscles and clear to auscultation bilaterally Cardio regular rate, regular rhythm, S1 normal heart sound and S2 normal heart sound GI normal to inspection, nondistended, normoactive bowel sounds, soft to palpation, non-tender and non-distended Assessment & Plan Assessment/Plan (1) Acute biliary pancreatitis: PLAN: Acute gallstone pancreatitis -Gallbladder ultrasound demonstrated multiple gallstones and gallbladder distention to 10.4 cm with no increased wall thickness or pericholecystic fluid but has elevated bili as well as liver function tests and a lipase of 23,197 -CT of the abdomen with acute interstitial edematous pancreatitis 09/01: Patient underwent a laparoscopic cholecystectomy with intraoperative cholangiogram. Was having a fever overnight and started on meropenem, which has subsequent been discontinued. Advance diet per general surgery. (2) Transaminitis: PLAN: Improving. Most likely secondary to choledocholithiasis. Acute hepatitis profile pending Antimitochondrial antibody and anti-smooth muscle antibody pending PLAN: Plan Chronic conditions: * Hypothyroidism-Continue Synthroid daily * SREEKANTH-CPAP nightly * Group 3 pulmonary hypertension-Last echo demonstrated EF of 65% with RVSP estimated to be 40 mmHg-Follows with Dr. Stroud as an outpatient-Is on Lasix twice daily, will hold this given presenting problem and monitor clinically-Continue to assess for ability to DC fluids or for signs and symptoms of overload DVT ppx: Lovenox subq Charges/Coding Visit Charges Inpatient E&M: 53218 Subs Hosp L2
[2022-09-03 08:11] VITALS: BP 135/57; PULSE 104; RESP 18; TEMP 36.8; O2SAT 99
[2022-09-03] MEDS: Ensure Clear 120 ML Liquid PO ×2 (08:51→12:34)
[2022-09-03] MEDS: 0.9% Normal Saline 1,000 ML 75 ML IV (10:45)
--- NOTE | 2022-09-03 11:24 | NURSING ---
This RN is aware of Vital Signs that were done this morning at 0811 by Malorie, Easement Worker.
[2022-09-03 13:44] VITALS: BP 150/63; PULSE 105; RESP 18; TEMP 36.8; O2SAT 99
--- NOTE | 2022-09-03 18:11 | PCM.PROGNOTE ---
Subjective Subjective Patient is doing a lot better today. She denies any abdominal pain. She denies any fevers or chills. She is having bowel movements. Objective Data Objective Data Vital Signs: Vital Signs Temp Pulse Resp BP Pulse Ox O2 Del Method O2 Flow Rate 98.3 F 105 H 18 150/63 H 99 Room Air 2 09/03/22 13:44 09/03/22 13:44 09/03/22 13:44 09/03/22 13:44 09/03/22 13:44 09/03/22 15:05 09/01/22 18:15 Oxygen Flow Rate (L/min) 2 Oxygen Delivery Method Room Air Weight: 232 lb 5.875 oz Body Mass Index (BMI) 36.4 Intake & Output: Intake and Output for Last 24 Hours 09/01/22 09/02/22 09/03/22 23:59 23:59 23:59 Intake Total 3019.75 / 3019.75 2888 / 2888 1232.5 / 1232.5 Output Total 650 / 650 Balance 2369.75 / 2369.75 2888 / 2888 1232.5 / 1232.5 Lab / Micro Data Result Diagrams: 09/03/22 06:35 09/03/22 06:35 Labs: Laboratory Results - last 24 hr 09/03/22 06:35: WBC 8.5, RBC 3.90 L, Hgb 11.3 L, Hct 35.9 L, MCV 92.1, MCH 29.0, MCHC 31.5 L, RDW Std Deviation 48.9 H, RDW Coeff of Rajinder 14.6, Plt Count 167, MPV 11.7, Immature Gran % (Auto) 0.400, Neut % (Auto) 68.8, Lymph % (Auto) 24.2, [place] % (Auto) 5.9, Eos % (Auto) 0.5, Baso % (Auto) 0.2, Absolute Neuts (auto) 5.9, Absolute Lymphs (auto) 2.06, Nucleated RBC % 0 09/03/22 06:35: Sodium 145, Potassium 3.5, Chloride 116 H, Carbon Dioxide 22.0, Anion Gap 7, BUN 16, Creatinine 0.59, Estim Creat Clear Calc 45.82, Est GFR (MDRD) Af Amer 127, Est GFR (MDRD) Non-Af 105, BUN/Creatinine Ratio 27.2 H, Glucose 98, Calcium 7.6 L, Total Bilirubin 0.40, AST 30, ALT 107 H, Alkaline Phosphatase 85, Total Protein 5.5 L, Albumin 2.3 L, Globulin 3.2, Albumin/Globulin Ratio 0.7 L Micro: Microbiology 08/31/22 23:09 Blood Culture (Wb) - Right Wrist Blood Culture - Preliminary No growth in 48 hours. 08/31/22 23:00 Blood Culture (Wb) - Right Forearm Blood Culture - Preliminary No growth in 48 hours. Physical Exam Const alert and no apparent distress Resp normal respiratory effort, no retractions, no use of accessory muscles and clear to auscultation bilaterally Cardio regular rate, regular rhythm, S1 normal heart sound and S2 normal heart sound GI normal to inspection, nondistended, normoactive bowel sounds, soft to palpation, non-tender and non-distended Assessment & Plan Assessment/Plan (1) Acute biliary pancreatitis: PLAN: Patient has not shown any sequela of pancreatitis at this time. However her CA 19-9 is elevated at 45. This could be secondary to acute pancreatitis however we should repeat the CA 19-9 in approximately 2 months and have a repeat CT scan with pancreatic protocol. If it is still elevated then she will need an endoscopic ultrasound or possible ERCP with biopsy. I will not send an IgG4 to look for type I autoimmune pancreatitis because this was likely secondary to biliary obstruction. (2) Cholelithiasis: PLAN: Status postcholecystectomy today without any problems. Cholangiogram did not show any abnormalities or filling defects in the distal common bile duct. Recommendations as per surgery Charges/Coding Visit Charges Inpatient E&M: 13579 Subs Hosp L3
[2022-09-03] MEDS: Ensure Plus High Protein 120 ML LIQUID PO (18:59)
[2022-09-03] MEDS: Furosemide 40 MG Tablet PO (18:59)
[2022-09-03 20:35] VITALS: BP 143/65; PULSE 94; RESP 16; TEMP 37.1; O2SAT 97
[2022-09-04 02:04] VITALS: BP 148/62; PULSE 100; RESP 18; TEMP 37.2; O2SAT 97
[2022-09-04 03:48] VITALS: BMI 36.3
[2022-09-04] MEDS: Levothyroxine 100 MCG Tablet PO (04:53)
[2022-09-04] MEDS: Pregabalin 50 MG Capsule 100 MG PO ×3 (04:53→20:42)
[2022-09-04 05:02] VITALS: BMI 35.9
[2022-09-04 06:09] LABS: Absolute Lymphocyte Count 2.18 X10^3/uL (0.83-4.51); Absolute Neutrophil Count 4.2 X10^3/uL (2.0-7.7); Basophil# 0.03 X10^3/uL; Basophil% 0.4 % (0-1); Eosinophil# 0.08 X10^3/uL; Eosinophils% 1.1 % (0-5); Hematocrit 32.8 % (37-47); Hemoglobin 10.2 g/dL (12.0-15.0); Lymphocyte # 2.18 X10^3/ul (0.83-4.51); Lymphocyte % 30.9 % (19-41); Mean Corp Hgb Conc 31.1 g/dL (32-36); Mean Corpuscular Hgb 28.6 pg (27.0-32.0); Mean Corpuscular Volume 91.9 fL (81-99); Mean Platelet Vol. 11.9 fl (6.2-12.0); Monocyte# 0.54 X10^3/uL; Monocyte% 7.7 % (0-10); NRBC Flagged by Analyzer 0 % (0-5); Neutrophil # 4.19 X10^3/uL (2.7-7.7); Neutrophil % 59.5 % (47-70); Platelet Count 171 K/mm3 (150-450); RBC Distribution Width CV 14.3 % (11.6-14.6); RBC Distribution Width SD 48.1 fl (35.1-43.9); Red Blood Count 3.57 M/mm3 (4.2-5.4); White Blood Count 7.1 K/mm3 (4.4-11.0)
[2022-09-04 06:47] LABS: ALB/GLOB Ratio 0.7 RATIO (0.9-2.4); AST(SGOT) 17 U/L (15-37); Alanine Aminotransfer ALT/SGPT 72 U/L (13-56); Alkaline Phosphatase 69 U/L (45-117); Anion Gap 7 (5-15); BUN 9 mg/dL (7-18); BUN/Creat Ratio 14.6 RATIO (10-20); Calcium,Total 7.6 mg/dL (8.5-10.1); Chloride 115 mmol/L (98-107); Creatinine, Serum 0.62 mg/dL (0.55-1.02); EST Glomerular Filtration Rate 100 mL/min (>60); Est Glom Filt Rate - Afr Amer 121 mL/min (>60); Estimated Creatinine Clearance 45.82 ml/min; Glucose 97 mg/dL (74-106); Potassium 2.9 mmol/L (3.5-5.1); Sodium Level 145 mmol/L (136-145)
--- NOTE | 2022-09-04 07:13 | PN.HOSP_ITS ---
Reason for Visit Reason for Visit: Diagnoses Secondary pulmonary arterial hypertension (08/30/22) Calculus of gallbladder without cholecystitis without obstruction (08/30/22) Biliary acute pancreatitis without necrosis or infection (08/30/22) Elevation of levels of liver transaminase levels (08/30/22) Acquired absence of other specified parts of digestive tract (08/30/22) Subjective Subjective Feels well. States that the swelling in her legs and arms is better and that she can move her legs better. Objective Data Objective Data Vital Signs: Vital Signs Temp Pulse Resp BP Pulse Ox O2 Del Method O2 Flow Rate 37.2 C 100 18 148/62 H 97 CPAP 2 09/04/22 02:04 09/04/22 02:04 09/04/22 02:04 09/04/22 02:04 09/04/22 02:04 09/04/22 02:04 09/01/22 18:15 Oxygen Flow Rate (L/min) 2 Oxygen Delivery Method CPAP Weight: 103.918 kg Body Mass Index (BMI) 35.9 Intake & Output: Intake and Output for Last 24 Hours 09/02/22 09/03/22 09/04/22 23:59 23:59 23:59 Intake Total 2888 / 2888 2320.0 / 2320.0 Output Total 1550 / 1550 Balance 2888 / 2888 2320.0 / 2320.0 -1550 / -1550 Lab / Micro Data Result Diagrams: 09/04/22 04:48 09/04/22 04:48 Labs: Laboratory Results - last 24 hr 09/03/22 06:35: Sodium 145, Potassium 3.5, Chloride 116 H, Carbon Dioxide 22.0, Anion Gap 7, BUN 16, Creatinine 0.59, Estim Creat Clear Calc 45.82, Est GFR (MDRD) Af Amer 127, Est GFR (MDRD) Non-Af 105, BUN/Creatinine Ratio 27.2 H, Glucose 98, Calcium 7.6 L, Total Bilirubin 0.40, AST 30, ALT 107 H, Alkaline Phosphatase 85, Total Protein 5.5 L, Albumin 2.3 L, Globulin 3.2, Albumin/G lobulin Ratio 0.7 L 09/04/22 04:48: WBC 7.1, RBC 3.57 L, Hgb 10.2 L, Hct 32.8 L, MCV 91.9, MCH 28.6, MCHC 31.1 L, RDW Std Deviation 48.1 H, RDW Coeff of Rajinder 14.3, Plt Count 171, MPV 11.9, Immature Gran % (Auto) 0.400, Neut % (Auto) 59.5, Lymph % (Auto) 30.9, [place] % (Auto) 7.7, Eos % (Auto) 1.1, Baso % (Auto) 0.4, Absolute Neuts (auto) 4.2, Absolute Lymphs (auto) 2.18, Nucleated RBC % 0 09/04/22 04:48: Sodium 145, Potassium 2.9 L, Chloride 115 H, Carbon Dioxide 23.0, Anion Gap 7, BUN 9, Creatinine 0.62, Estim Creat Clear Calc 45.82, Est GFR (MDRD) Af Amer 121, Est GFR (MDRD) Non-Af 100, BUN/Creatinine Ratio 14.6, Glucose 97, Calcium 7.6 L, Total Bilirubin 0.60, AST 17, ALT 72 H, Alkaline Phosphatase 69, Total Protein 5.0 L, Albumin 2.0 L, Globulin 3.0, Albumin/Globulin Ratio 0.7 L Micro: Microbiology 08/31/22 23:09 Blood Culture (Wb) - Right Wrist Blood Culture - Preliminary No growth in 48 hours. 08/31/22 23:00 Blood Culture (Wb) - Right Forearm Blood Culture - Preliminary No growth in 48 hours. Physical Exam Const alert and no apparent distress Resp normal respiratory effort, no retractions, no use of accessory muscles and clear to auscultation bilaterally Cardio regular rate, regular rhythm, S1 normal heart sound and S2 normal heart sound GI normal to inspection, nondistended, normoactive bowel sounds, soft to palpation, non-tender and non-distended Assessment & Plan Assessment/Plan (1) Acute biliary pancreatitis: PLAN: Acute gallstone pancreatitis -Gallbladder ultrasound demonstrated multiple gallstones and gallbladder distention to 10.4 cm with no increased wall thickness or pericholecystic fluid but has elevated bili as well as liver function tests and a lipase of 23,197 -CT of the abdomen with acute interstitial edematous pancreatitis 09/01: Patient underwent a laparoscopic cholecystectomy with intraoperative cholangiogram. Was having a fever overnight and started on meropenem, which has subsequent been discontinued. Advance diet per general surgery. Now on regular diet. (2) Transaminitis: PLAN: Improving. Most likely secondary to choledocholithiasis. Acute hepatitis profile negative Antimitochondrial antibody and anti-smooth muscle antibody less than 20 and 3, respectively. These results are within normal limits. (3) Hypokalemia: PLAN: Replace magnesium 1.8. Will replace. PLAN: Plan Chronic conditions: * Hypothyroidism-Continue Synthroid daily * SREEKANTH-CPAP nightly * Group 3 pulmonary hypertension-Last echo demonstrated EF of 65% with RVSP estimated to be 40 mmHg-Follows with Dr. Stroud as an outpatient-Lasix has been resumed DVT ppx: Lovenox subq Charges/Coding Visit Charges Inpatient E&M: 65390 Subs Hosp L2
[2022-09-04 08:00] VITALS: BP 123/58; PULSE 94; RESP 18; TEMP 37.1; O2SAT 94
[2022-09-04] MEDS: Ensure Plus High Protein 120 ML LIQUID PO ×2 (08:10→11:34)
[2022-09-04] MEDS: Potassium Chloride Oral Tablet 20 MEQ 60 MEQ PO (08:10)
--- NOTE | 2022-09-04 08:28 | PCM.PN.SRG ---
Subjective Subjective Patient seen and examined during AM rounds. She is sitting upright in bed but states that she is feeling much better. She denies any abdominal discomfort. She states that she has an appetite this morning. She is appreciative of her diuresis yesterday as she states she can now move her hands more freely and can lift her legs into bed. Objective Data Objective Data Vital Signs: Vital Signs Temp Pulse Resp BP Pulse Ox O2 Del Method O2 Flow Rate 98.8 F 94 18 123/58 H 94 Room Air 2 09/04/22 08:00 09/04/22 08:00 09/04/22 08:00 09/04/22 08:00 09/04/22 08:00 09/04/22 08:00 09/01/22 18:15 Oxygen Flow Rate (L/min) 2 Oxygen Delivery Method Room Air Weight: 229 lb 1.6 oz Body Mass Index (BMI) 35.9 Intake & Output: Intake and Output for Last 24 Hours 09/02/22 09/03/22 09/04/22 23:59 23:59 23:59 Intake Total 2888 / 2888 2320.0 / 2320.0 Output Total 1550 / 1550 Balance 2888 / 2888 2320.0 / 2320.0 -1550 / -1550 Lab / Micro Data Result Diagrams: 09/04/22 04:48 09/04/22 04:48 Labs: Laboratory Results - last 24 hr 09/04/22 04:48: WBC 7.1, RBC 3.57 L, Hgb 10.2 L, Hct 32.8 L, MCV 91.9, MCH 28.6, MCHC 31.1 L, RDW Std Deviation 48.1 H, RDW Coeff of Rajinder 14.3, Plt Count 171, MPV 11.9, Immature Gran % (Auto) 0.400, Neut % (Auto) 59.5, Lymph % (Auto) 30.9, [place] % (Auto) 7.7, Eos % (Auto) 1.1, Baso % (Auto) 0.4, Absolute Neuts (auto) 4.2, Absolute Lymphs (auto) 2.18, Nucleated RBC % 0 09/04/22 04:48: Sodium 145, Potassium 2.9 L, Chloride 115 H, Carbon Dioxide 23.0, Anion Gap 7, BUN 9, Creatinine 0.62, Estim Creat Clear Calc 45.82, Est GFR (MDRD) Af Amer 121, Est GFR (MDRD) Non-Af 100, BUN/Creatinine Ratio 14.6, Glucose 97, Calcium 7.6 L, Total Bilirubin 0.60, AST 17, ALT 72 H, Alkaline Phosphatase 69, Total Protein 5.0 L, Albumin 2.0 L, Globulin 3.0, Albumin/Globulin Ratio 0.7 L Micro: Microbiology 08/31/22 23:09 Blood Culture (Wb) - Right Wrist Blood Culture - Preliminary No growth in 48 hours. 08/31/22 23:00 Blood Culture (Wb) - Right Forearm Blood Culture - Preliminary No growth in 48 hours. Physical Exam Const oriented x3 and no apparent distress Resp normal respiratory effort GI GI Narrative: Mildly distended, operative sites appear appropriate with Steri-Strips and no surrounding redness or drainage. Abdomen is soft and nontender to palpation?including in the epigastrium. Assessment & Plan Assessment/Plan (1) Acute biliary pancreatitis: PLAN: This is a 77-year-old female admitted for acute pancreatitis?believed to be related to a biliary origin given her concurrent elevation of liver enzymes. Patient now postoperative day 2 from laparoscopic cholecystectomy with intraoperative cholangiogram. Cholangiogram did not demonstrate any filling defects so no ERCP was undertaken. Patient with improved abdominal exam today. Anasarca appears improved after diuresis was begun yesterday and patient reports improved mobility. Patient does have a slight decrease in her hemoglobin despite this diuresis, but denies any symptoms of lightheadedness and her operative sites appear appropriate. I did restart her Lovenox after her hemoglobin was stable x2. We will continue to monitor. (2) Status post cholecystectomy: PLAN: Patient postoperative day 4 from lap lissette with IOC. Negative IOC as above. Patient with improved clinical exam and decreased anasarca following beginning diuresis yesterday. Specifically recommend: ? Continue diuresis, maintain stricter I's and O's ? Advance to regular diet with protein supplementation ? Stop antibiotics (now that we have assured the biliary tract is unobstructed) ? Patient can be started back on Lovenox 09/03/2022 with slight downtrend in hemoglobin?continue to monitor
[2022-09-04 08:46] LABS: Magnesium 1.8 mg/dL (1.6-2.6)
[2022-09-04] MEDS: Furosemide 40 MG Tablet PO ×2 (10:06→18:00)
[2022-09-04] MEDS: Enoxaparin 40 MG/0.4 ML Syringe SC (10:06)
[2022-09-04] MEDS: Losartan Potassium 100 MG Tablet PO (10:06)
[2022-09-04] MEDS: 0.9% Saline Lock 10 ML Syringe IV (12:47)
--- NOTE | 2022-09-04 14:11 | CASEMGMT ---
JEAN CARLOS CM into pt room, pt sitting up in chair. Pt states she is doing well at getting around but her stomach does not feel normal yet. Pt denies any homegoing needs. She inquired about meals from her insurance company. Provided pt with a handout on mom's meals for a discount through her insurance.
[2022-09-04 14:20] VITALS: BP 132/58; PULSE 84; RESP 18; TEMP 36.8; O2SAT 100
[2022-09-04 14:53] VITALS: O2SAT 99
[2022-09-04 17:20] VITALS: O2SAT 99
--- NOTE | 2022-09-04 18:39 | PCM.PROGNOTE ---
Subjective Subjective Patient states that she is getting her injury back a little bit. She denies any abdominal pain with eating. She denies any nausea. Objective Data Objective Data Vital Signs: Vital Signs Temp Pulse Resp BP Pulse Ox O2 Del Method O2 Flow Rate 98.3 F 84 18 132/58 H 99 Room Air 2 09/04/22 14:20 09/04/22 14:20 09/04/22 14:20 09/04/22 14:20 09/04/22 17:20 09/04/22 17:20 09/01/22 18:15 Oxygen Flow Rate (L/min) 2 Oxygen Delivery Method Room Air Weight: 229 lb 1.6 oz Body Mass Index (BMI) 35.9 Intake & Output: Intake and Output for Last 24 Hours 09/02/22 09/03/22 09/04/22 23:59 23:59 23:59 Intake Total 2888 / 2888 2320.0 / 2320.0 504 / 504 Output Total 1550 / 1550 Balance 2888 / 2888 2320.0 / 2320.0 -1046 / -1046 Lab / Micro Data Result Diagrams: 09/04/22 04:48 09/04/22 04:48 Labs: Laboratory Results - last 24 hr 09/04/22 04:48: WBC 7.1, RBC 3.57 L, Hgb 10.2 L, Hct 32.8 L, MCV 91.9, MCH 28.6, MCHC 31.1 L, RDW Std Deviation 48.1 H, RDW Coeff of Rajinder 14.3, Plt Count 171, MPV 11.9, Immature Gran % (Auto) 0.400, Neut % (Auto) 59.5, Lymph % (Auto) 30.9, [place] % (Auto) 7.7, Eos % (Auto) 1.1, Baso % (Auto) 0.4, Absolute Neuts (auto) 4.2, Absolute Lymphs (auto) 2.18, Nucleated RBC % 0 09/04/22 04:48: Sodium 145, Potassium 2.9 L, Chloride 115 H, Carbon Dioxide 23.0, Anion Gap 7, BUN 9, Creatinine 0.62, Estim Creat Clear Calc 45.82, Est GFR (MDRD) Af Amer 121, Est GFR (MDRD) Non-Af 100, BUN/Creatinine Ratio 14.6, Glucose 97, Calcium 7.6 L, Total Bilirubin 0.60, AST 17, ALT 72 H, Alkaline Phosphatase 69, Total Protein 5.0 L, Albumin 2.0 L, Globulin 3.0, Albumin/Globulin Ratio 0.7 L 09/04/22 04:48: Magnesium 1.8 Micro: Microbiology 08/31/22 23:09 Blood Culture (Wb) - Right Wrist Blood Culture - Preliminary No growth in 48 hours. 08/31/22 23:00 Blood Culture (Wb) - Right Forearm Blood Culture - Preliminary No growth in 48 hours. Physical Exam Const oriented x3 and no apparent distress Resp normal respiratory effort GI GI Narrative: Abdomen is soft and nontender to palpation?including in the epigastrium. Assessment & Plan Assessment/Plan (1) Acute biliary pancreatitis: PLAN: Patient has not shown any sequela of pancreatitis at this time. However her CA 19-9 is elevated at 45. This could be secondary to acute pancreatitis however we should repeat the CA 19-9 in approximately 2 months and have a repeat CT scan with pancreatic protocol. If it is still elevated then she will need an endoscopic ultrasound or possible ERCP with biopsy. I will not send an IgG4 to look for type I autoimmune pancreatitis because this was likely secondary to biliary obstruction. Patient is doing well from a GI standpoint. I would recommend Protonix 40 mg once a day., Stool softener with Colace 100 mg p.o. daily she does not seem to be experiencing any signs of ileus secondary to recent pancreatitis or gastroparesis secondary to pancreatitis as her appetite is improving. (2) Cholelithiasis: PLAN: Status postcholecystectomy today without any problems. Cholangiogram did not show any abnormalities or filling defects in the distal common bile duct. Recommendations as per surgery Charges/Coding Visit Charges Inpatient E&M: 01566 Subs Hosp L3
[2022-09-04] MEDS: Montelukast 10 MG Tablet PO (20:43)
[2022-09-04 20:55] VITALS: BP 129/63; PULSE 91; RESP 16; TEMP 37.3; O2SAT 100
[2022-09-05] MEDS: Pregabalin 50 MG Capsule 100 MG PO (05:03)
[2022-09-05] MEDS: 0.9% Saline Lock 10 ML Syringe IV (05:03)
[2022-09-05] MEDS: Levothyroxine 100 MCG Tablet PO (05:03)
[2022-09-05 05:10] VITALS: BP 125/60; PULSE 83; RESP 16; TEMP 37.2; O2SAT 96
[2022-09-05 05:36] VITALS: BMI 35.6
--- NOTE | 2022-09-05 07:15 | PN.HOSP_ITS ---
Reason for Visit Reason for Visit: Diagnoses Hypokalemia (08/30/22) Secondary pulmonary arterial hypertension (08/30/22) Calculus of gallbladder without cholecystitis without obstruction (08/30/22) Biliary acute pancreatitis without necrosis or infection (08/30/22) Elevation of levels of liver transaminase levels (08/30/22) Acquired absence of other specified parts of digestive tract (08/30/22) Subjective Subjective Tolerating PO. No new events. Objective Data Objective Data Vital Signs: Vital Signs Temp Pulse Resp BP Pulse Ox O2 Del Method O2 Flow Rate 37.2 C 83 16 125/60 H 96 Room Air 2 09/05/22 05:10 09/05/22 05:10 09/05/22 05:10 09/05/22 05:10 09/05/22 05:10 09/05/22 05:10 09/01/22 18:15 Oxygen Flow Rate (L/min) 2 Oxygen Delivery Method Room Air Weight: 103.2 kg Body Mass Index (BMI) 35.6 Intake & Output: Intake and Output for Last 24 Hours 09/03/22 09/04/22 09/05/22 23:59 23:59 23:59 Intake Total 2320.0 / 2320.0 504 / 504 Output Total 1550 / 1750 1100 / 1100 Balance 2320.0 / 2320.0 -1046 / -1246 -1100 / -1100 Lab / Micro Data Result Diagrams: 09/04/22 04:48 09/05/22 08:21 Labs: Laboratory Results - last 24 hr 09/04/22 04:48: Magnesium 1.8 Micro: Microbiology 08/31/22 23:09 Blood Culture (Wb) - Right Wrist Blood Culture - Preliminary No growth in 48 hours. 08/31/22 23:00 Blood Culture (Wb) - Right Forearm Blood Culture - Preliminary No growth in 48 hours. Physical Exam Const alert and no apparent distress Resp normal respiratory effort, no retractions and no use of accessory muscles Cardio regular rate, regular rhythm, S1 normal heart sound and S2 normal heart sound GI normal to inspection, nondistended, normoactive bowel sounds, soft to palpation, non-tender and non-distended Assessment & Plan Assessment/Plan (1) Acute biliary pancreatitis: PLAN: Acute gallstone pancreatitis -Gallbladder ultrasound demonstrated multiple gallstones and gallbladder distention to 10.4 cm with no increased wall thickness or pericholecystic fluid but has elevated bili as well as liver function tests and a lipase of 23,197 -CT of the abdomen with acute interstitial edematous pancreatitis 09/01: Patient underwent a laparoscopic cholecystectomy with intraoperative cholangiogram. Was having a fever overnight and started on meropenem, which has subsequent been discontinued. Advance diet per general surgery. Now on regular diet. (2) Transaminitis: PLAN: Improving. Most likely secondary to choledocholithiasis. Acute hepatitis profile negative Antimitochondrial antibody and anti-smooth muscle antibody less than 20 and 3, respectively. These results are within normal limits. (3) Hypokalemia: PLAN: Replace magnesium 1.8. Will replace. PLAN: Plan Chronic conditions: * Hypothyroidism-Continue Synthroid daily * SREEKANTH-CPAP nightly * Group 3 pulmonary hypertension-Last echo demonstrated EF of 65% with RVSP estimated to be 40 mmHg-Follows with Dr. Stroud as an outpatient-Lasix has been resumed DVT ppx: Lovenox subq Charges/Coding Visit Charges Inpatient E&M: 19289 Subs Hosp L2
--- NOTE | 2022-09-05 08:27 | PN.SURG_ITS ---
Subjective Subjective Patient reports feeling well with no nausea or vomiting. Abdominal pain is well controlled. She says the swelling in her legs is decreased greatly. Objective Data Objective Data Vital Signs: Vital Signs Temp Pulse Resp BP Pulse Ox O2 Del Method O2 Flow Rate 98.9 F 83 16 125/60 H 96 Room Air 2 09/05/22 05:10 09/05/22 05:10 09/05/22 05:10 09/05/22 05:10 09/05/22 05:10 09/05/22 05:10 09/01/22 18:15 Oxygen Flow Rate (L/min) 2 Oxygen Delivery Method Room Air Weight: 227 lb 8.273 oz Body Mass Index (BMI) 35.6 Intake & Output: Intake and Output for Last 24 Hours 09/03/22 09/04/22 09/05/22 23:59 23:59 23:59 Intake Total 2320.0 / 2320.0 504 / 504 Output Total 1550 / 1750 1100 / 1100 Balance 2320.0 / 2320.0 -1046 / -1246 -1100 / -1100 Lab / Micro Data Result Diagrams: 09/04/22 04:48 09/04/22 04:48 Labs: Laboratory Results - last 24 hr 09/04/22 04:48: Magnesium 1.8 Micro: Microbiology 08/31/22 23:09 Blood Culture (Wb) - Right Wrist Blood Culture - Preliminary No growth in 48 hours. 08/31/22 23:00 Blood Culture (Wb) - Right Forearm Blood Culture - Preliminary No growth in 48 hours. Physical Exam Const oriented x3 Resp normal respiratory effort GI soft to palpation Assessment & Plan Assessment/Plan (1) Status post cholecystectomy: PLAN: Patient seems to be doing well. Her legs are less swollen and she says she is diuresing plenty. She is going to try regular diet this morning. If she tolerates diet from my standpoint she can be discharged home. She should f ollow-up with Dr. Jean-Baptiste in 2 weeks. She should not lift anything over 15 pounds and she may shower starting today. Harvinder Palmer MD Pager: [facility] [address] [place] [address], [address] [place] [address] Office:
--- NOTE | 2022-09-05 08:29 | DCINST_ITS ---
Discharge Instructions Diet Discharge Diet: Light diet - advance as tolerated Activity Discharge Activity: May Drive and May Shower Lifting Restrictions: 15 lbs for 2 weeks Dressing / Incision Call your doctor if your incision/area has: Continuous Slow Oozing, Sudden Increased Bleeding, Increased Pain/ Swelling, Increased Redness, Foul Smelling Discharge and Swelling at the incision site Call your doctor if you observe: Fever of 101 or Higher Change Dressing in: 2 days (Remove clear bandages in 2 days, remove steri strips in 10 days) Cleanse incision/area with: Soap & Water Follow Up Care Please Follow Up With: Fernando Jean-Baptiste MD When: Please call to schedule 2 week follow up appointment. [phone] Test Results: Test results from this visit will be discussed in further detail at your follow- up appointment, if applicable. Discharge Plan Admission Admit Date/Time: 08/30/22 20:41 Attending Provider: Tyler Coffman Primary Care Provider: Douglas Beauchamp Consulting Providers: Fernando Jean-Baptiste ; Ella Hinojosa Discharge Orders/Prescriptions Prescriptions: No Action pregabalin [Lyrica] 100 mg capsule 100 mg PO TID furosemide [Lasix] 40 mg tablet 40 mg PO BID Rx Instructions: Per patient, takes an extra dose as needed. multivitamin [Daily Multi-Vitamin] Tablet 1 tab PO DAILY montelukast [Singulair] 10 mg tablet 10 mg PO QHS levothyroxine 100 mcg tablet 100 mcg PO DAILY losartan 100 mg tablet 100 mg PO DAILY Qty: 90 3RF Referrals / Follow Up: Douglas Beauchamp MD [Primary Care Provider] -
[2022-09-05 08:54] LABS: ALB/GLOB Ratio 0.6 RATIO (0.9-2.4); AST(SGOT) 18 U/L (15-37); Alanine Aminotransfer ALT/SGPT 63 U/L (13-56); Albumin, Serum 2.3 g/dL (3.2-5.0); Alkaline Phosphatase 75 U/L (45-117); Anion Gap 9 (5-15); BUN 8 mg/dL (7-18); BUN/Creat Ratio 12.9 RATIO (10-20); Chloride 111 mmol/L (98-107); Creatinine, Serum 0.62 mg/dL (0.55-1.02); EST Glomerular Filtration Rate 99 mL/min (>60); Est Glom Filt Rate - Afr Amer 119 mL/min (>60); Estimated Creatinine Clearance 45.82 ml/min; Globulin 3.7 g/dL (2.2-4.2); Glucose 114 mg/dL (74-106); Potassium 3.3 mmol/L (3.5-5.1); Sodium Level 144 mmol/L (136-145)
[2022-09-05] MEDS: Enoxaparin 40 MG/0.4 ML Syringe SC (09:52)
[2022-09-05] MEDS: Losartan Potassium 100 MG Tablet PO (09:52)
[2022-09-05] MEDS: Furosemide 40 MG Tablet PO (09:52)
[2022-09-05 10:08] VITALS: BP 124/50; PULSE 96; RESP 18; TEMP 36.6; O2SAT 96
--- NOTE | 2022-09-05 12:00 | PN_ITS ---
Subjective Subjective Patient continues to do well without any abdominal pain. She states that she would like to go home today. Her legs also improved and regarding strength and swelling. Objective Data Objective Data Vital Signs: Vital Signs Temp Pulse Resp BP Pulse Ox O2 Del Method O2 Flow Rate 97.9 F 96 18 142/67 H 16 Room Air 2 09/05/22 15:35 09/05/22 15:35 09/05/22 15:35 09/05/22 15:35 09/05/22 15:35 09/05/22 15:35 09/01/22 18:15 Oxygen Flow Rate (L/min) 2 Oxygen Delivery Method Room Air Weight: 227 lb 8.273 oz Body Mass Index (BMI) 35.6 Intake & Output: Intake and Output for Last 24 Hours 09/03/22 09/04/22 09/05/22 23:59 23:59 23:59 Intake Total 2320.0 / 2320.0 504 / 504 Output Total 1550 / 1750 1100 / 1100 Balance 2320.0 / 2320.0 -1046 / -1246 -1100 / -1100 Lab / Micro Data Result Diagrams: 09/04/22 04:48 09/05/22 08:21 Labs: Laboratory Results - last 24 hr 09/05/22 08:21: Sodium 144, Potassium 3.3 L, Chloride 111 H, Carbon Dioxide 24.0 , Anion Gap 9, BUN 8, Creatinine 0.62, Estim Creat Clear Calc 45.82, Est GFR (MDRD) Af Amer 119, Est GFR (MDRD) Non-Af 99, BUN/Creatinine Ratio 12.9, Glucose 114 H, Calcium 8.0 L, Total Bilirubin 0.60, AST 18, ALT 63 H, Alkaline Ph osphatase 75, Total Protein 6.0 L, Albumin 2.3 L, Globulin 3.7, Albumin/Globulin Ratio 0.6 L Micro: Microbiology 08/31/22 23:09 Blood Culture (Wb) - Right Wrist Blood Culture - Preliminary No growth in 48 hours. 08/31/22 23:00 Blood Culture (Wb) - Right Forearm Blood Culture - Preliminary No growth in 48 hours. Physical Exam Const oriented x3 Resp normal respiratory effort GI soft to palpation Assessment & Plan Assessment/Plan (1) Acute biliary pancreatitis: PLAN: Patient has not shown any sequela of pancreatitis at this time. However her CA 19-9 is elevated at 45. This could be secondary to acute pancreatitis ho wever we should repeat the CA 19-9 in approximately 2 months and have a repeat CT scan with pancreatic protocol. If it is still elevated then she will need an endoscopic ultrasound or possible ERCP with biopsy. I will not send an IgG4 to look for type I autoimmune pancreatitis because this was likely secondary to biliary obstruction. Patient is doing well from a GI standpoint. I would recommend Protonix 40 mg once a day., Stool softener with Colace 100 mg p.o. daily she does not seem to be experiencing any signs of ileus secondary to recent pancreatitis or gastroparesis secondary to pancreatitis as her appetite is improving. (2) Cholelithiasis: PLAN: Status postcholecystectomy today without any problems. Cholangiogram did not show any abnormalities or filling defects in the distal common bile duct. Recommendations as per surgery Charges/Coding Visit Charges Inpatient E&M: 72666 Subs Hosp L2
--- NOTE | 2022-09-05 12:02 | PCM.DC.SUM ---
Providers Date of Admission: 08/30/22 Primary Care Physician: Douglas Beauchamp MD Consultations 08/30/22 21:02 Consult: Gastroenterology Routine Consulting Provider: [facility] Reason for Consult: acute gallstone pancreatitis EMERGENT Consult: No Notified: Yes Date Notified: 08/30/22 Time Notified: 21:02 Method of Notification: ED Physician Initiated Consult: General Surgery Routine Consulting Provider: Fernando Jean-Baptiste Reason for Consult: acute gallstone pancreatitis EMERGENT Consult: No Notified: Yes Date Notified: 08/30/22 Time Notified: 21:02 Method of Notification: ED Physician Initiated Reason For Visit: ACUTE PANCREATITIS Diagnosis Discharge Diagnosis (1) Acute biliary pancreatitis: Status: Acute Code(s): K85.10 - Biliary acute pancreatitis without necrosis or infection Plan: Acute gallstone pancreatitis -Gallbladder ultrasound demonstrated multiple gallstones and gallbladder distention to 10.4 cm with no increased wall thickness or pericholecystic fluid but has elevated bili as well as liver function tests and a lipase of 23,197 -CT of the abdomen with acute interstitial edematous pancreatitis 09/01: Patient underwent a laparoscopic cholecystectomy with intraoperative cholangiogram. Was having a fever overnight and started on meropenem, which has subsequent been discontinued. Advance diet per general surgery. Now on regular diet. (2) Transaminitis: Status: Acute Code(s): R74.01 - Elevation of levels of liver transaminase levels Plan: Improving. Most likely secondary to choledocholithiasis. Acute hepatitis profile negative Antimitochondrial antibody and anti-smooth muscle antibody less than 20 and 3, respectively. These results are within normal limits. (3) Hypokalemia: Status: Acute Code(s): E87.6 - Hypokalemia Plan: Replace magnesium 1.8. Will replace. Plan Chronic conditions: Hypothyroidism-Continue Synthroid daily SREEKANTH-CPAP nightly Group 3 pulmonary hypertension-Last echo demonstrated EF of 65% with RVSP estimated to be 40 mmHg-Follows with Dr. Stroud as an outpatient-Lasix has been resumed DVT ppx: Lovenox subq Medications at Discharge Home Medications pregabalin 100 mg capsule (Lyrica) 100 mg PO TID 05/12/21 montelukast 10 mg tablet (Singulair) 10 mg PO QHS 08/13/21 multivitamin (Daily Multi-Vitamin tablet) 1 tab PO DAILY 08/13/21 furosemide 40 mg tablet (Lasix) 40 mg PO BID 11/11/21 levothyroxine 100 mcg tablet 100 mcg PO DAILY 11/11/21 losartan 100 mg tablet 100 mg PO DAILY #90 tabs 03/30/22 potassium chloride 20 mEq tablet,extended release 20 meq PO DAILY #30 tabs 09/05/22 Hospital Course Operations cholecystecomy Summary of Care Provided Minutes Spent on Discharge: 28 Hospital Course: 77-year-old female presents with abdominal pain. Patient was found to have acute pancreatitis as well as transaminitis. This is secondary to choledocholithiasis. Patient underwent a cholecystectomy by Dr. Jean-Baptiste. Patient did have cholangiograms that were unremarkable. Patient slow recovery regards to getting final bowel function but overall improved is tolerating diet. Patient be discharged and to continue with follow-up with general surgery as outpatient. Weight / BMI Weight Weight: 103.2 kg Body Mass Index (BMI) 35.6 ABG / Lab / Microbiology Data Result Diagrams: 09/04/22 04:48 09/05/22 08:21 Laboratory: Laboratory Results - last 24 hr 09/05/22 08:21: Sodium 144, Potassium 3.3 L, Chloride 111 H, Carbon Dioxide 24.0, Anion Gap 9, BUN 8, Creatinine 0.62, Estim Creat Clear Calc 45.82, Est GFR (MDRD) Af Amer 119, Est GFR (MDRD) Non-Af 99, BUN/Creatinine Ratio 12.9, Glucose 114 H, Calcium 8.0 L, Total Bilirubin 0.60, AST 18, ALT 63 H, Alkaline Phosphatase 75, Total Protein 6.0 L, Albumin 2.3 L, Globulin 3.7, Albumin/Globulin Ratio 0.6 L Microbiology: Microbiology 08/31/22 23:09 Blood Culture (Wb) - Right Wrist Blood Culture - Preliminary No growth in 48 hours. 08/31/22 23:00 Blood Culture (Wb) - Right Forearm Blood Culture - Preliminary No growth in 48 hours. D/C Instructions Discharge Diet: Light diet - advance as tolerated Call your doctor if your incision/area has: Continuous Slow Oozing, Sudden Increased Bleeding, Increased Pain/ Swelling, Increased Redness, Foul Smelling Discharge and Swelling at the incision site Call your doctor if you observe: Fever of 101 or Higher Cleanse incision/area with: Soap & Water Please Follow Up With: Fernando Jean-Baptiste MD When: Please call to schedule 2 week follow up appointment. [phone] Meaningful Use Info Meaningful Use Diagnoses (Choose all that apply): None applicable Discharge Plan Admission Admit Date/Time: 08/30/22 20:41 Primary Reason for Your Visit: pancreatatitis Attending Provider: Tyler Coffman Primary Care Provider: Douglas Beauchamp Consulting Providers: Fernando Jean-Baptiste ; Ella Hinojosa Discharge Orders/Prescriptions Prescriptions: New potassium chloride 20 mEq tablet extended release 20 meq PO DAILY Qty: 30 0RF Continued pregabalin [Lyrica] 100 mg capsule 100 mg PO TID furosemide [Lasix] 40 mg tablet 40 mg PO BID Rx Instructions: Per patient, takes an extra dose as needed. multivitamin [Daily Multi-Vitamin] Tablet 1 tab PO DAILY montelukast [Singulair] 10 mg tablet 10 mg PO QHS levothyroxine 100 mcg tablet 100 mcg PO DAILY losartan 100 mg tablet 100 mg PO DAILY Qty: 90 3RF Referrals / Follow Up: Fernando Jean-Baptiste MD [Med Staff - Active Staff] - Within 2 Weeks Douglas Beauchamp MD [Primary Care Provider] - Within 2 Weeks Disposition Disposition (needs filled in before D/C Order can be placed): Home, Self Care
[2022-09-05 15:35] VITALS: BP 142/67; PULSE 96; RESP 18; TEMP 36.6; O2SAT 16
== END 2022-09-05 16:02 | disposition home or self-care (01) | DRG 418 ==
LOC: ED 19:44 → MS3 20:59
PROVIDERS: Internal Medicine Gastroenterology; Surgery; Admitting Provider Internal Medicine; Emergency Provider Emergency Medicine; PCP Family Medicine
PROC: 0FT44ZZ Resection of Gallbladder, Percutaneous Endoscopic Approach (ICD-10-PCS; CPT 47610; principal; 2022-09-01 09:40)
DX: K85.10 Biliary acute pancreatitis without necrosis or infection (principal); K80.12 Calculus of gallbladder with acute and chronic cholecystitis without obstruction; I27.23 Pulmonary hypertension due to lung diseases and hypoxia; E03.9 Hypothyroidism, unspecified; E78.5 Hyperlipidemia, unspecified; G47.33 Obstructive sleep apnea (adult) (pediatric); I10 Essential (primary) hypertension; E87.6 Hypokalemia; E66.9 Obesity, unspecified; Z68.34 Body mass index [BMI] 34.0-34.9, adult; Z79.01 Long term (current) use of anticoagulants; Z79.899 Other long term (current) drug therapy; Z86.16 Personal history of COVID-19; Z80.0 Family history of malignant neoplasm of digestive organs
CPT/HCPCS: 36415; 71045; 74176; 74300; 76000; 76705; 80048; 80053; 80074; 81001; 82150; 82378; 82728; 83516; 83690; 83735; 84443; 85025; 85610; 85652; 86140; 86301; 87040; 88304; 93005; 94668; 97162; 97530; 97803; 99252; 99283; J2185; J7030; J7050; A4216; G0463; J2405

== ENCOUNTER → 2024-04-10 | Outpatient (CLI) | payer MEDICARE, SELFPAY ==
[2024-04-10 17:00] LABS: BNP,B-Type NATRIURETIC PEPTIDE 22.9 pg/mL (0-100)
== END | disposition home or self-care (01) ==
LOC: LAB 15:15
PROVIDERS: PCP Family Medicine; Referring Provider Internal Medicine Pulmonary Disease; Visit Provider Internal Medicine Pulmonary Disease
DX: R06.00 Dyspnea, unspecified (principal)
CPT/HCPCS: 36415; 83880

== ENCOUNTER → 2024-07-10 | Outpatient (CLI) | payer MEDICARE, SELFPAY ==
[2024-07-10 16:48] LABS: BNP,B-Type NATRIURETIC PEPTIDE 19.7 pg/mL (0-100)
== END | disposition home or self-care (01) ==
LOC: MTLAB 11:21
PROVIDERS: PCP Family Medicine; Referring Provider Internal Medicine Pulmonary Disease; Visit Provider Internal Medicine Pulmonary Disease
DX: R06.00 Dyspnea, unspecified (principal)
CPT/HCPCS: 36415; 83880

== ENCOUNTER → 2024-08-04 | Outpatient (CLI) | payer MEDICARE, SELFPAY ==
--- NOTE | 2024-08-04 14:56 | ECHOD_ITS ---
Reason For Study Reason For Study: DYSPNEA Procedure This was a 2D Doppler, Color Flow transthoracic echocardiogram. The study was technically difficult. Exam performed in department. Left Ventricle Normal LV size. The estimated ejection fraction is 65 %. No regional wall motion abnormalities noted. Right Ventricle Mildly dilated right ventricle. Normal systolic function. Atria The left and right atria are normal. No doppler evidence for ASD. Mitral Valve There is mild to moderate mitral annular calcification. There is no mitral valve stenosis. No mitral valve insufficiency. Tricuspid Valve There is no tricuspid stenosis. Trivial tricuspid valve insufficiency. Pulmonary artery systolic pressure is 55 mmHg. Aortic Valve Trisinus/trileaflet aortic valve. There is no aortic stenosis. No aortic valve insufficiency. Pulmonic Valve There is no pulmonic valvular stenosis. No pulmonic valve insufficiency. Great Vessels Normal aortic root. Pericardium/Pleural No pericardial effusion. MMode/2D Measurements & Calculations LVIDd: 4.0 cm IVSd: 1.1 cm LVOT diam: 2.0 cm LVIDs: 2.2 cm LVPWd: 1.1 cm LVOT area: 3.1 cm2 RVDd: 4.0 cm FS: 46.1 % asc Aorta Diam: 3.3 cm LAV(MOD-bp): 23.0 ml LVAd ap4: 12.1 cm2 LAV(MOD-bp) Indexed: 11.5 ml/m2 LVLd ap4: 6.1 cm LAV(MOD-sp2): 28.4 ml EDV(MOD-sp4): 19.3 ml LAV(MOD-sp4): 18.6 ml EDV(sp4-el): 20.2 ml LVAs ap4: 5.4 cm2 LVLs ap4: 4.8 cm ESV(MOD-sp4): 5.2 ml ESV(sp4-el): 5.1 ml EF(MOD-sp4): 73.4 % EF(sp4-el): 74.8 % LVAd ap2: 12.9 cm2 SV(MOD-sp4): 14.2 ml SV(MOD-sp2): 18.8 ml LVLd ap2: 5.8 cm SI(MOD-sp4): 7.1 ml/m2 SI(MOD-sp2): 9.4 ml/m2 EDV(MOD-sp2): 24.2 ml EDV(sp2-el): 24.4 ml LVAs ap2: 5.1 cm2 LVLs ap2: 4.4 cm ESV(MOD-sp2): 5.4 ml ESV(sp2-el): 5.0 ml EF(MOD-sp2): 77.7 % SV(sp4-el): 15.1 ml Ao sinus diam: 2.[address] Junction: 2.2 cm LA dimension(2D): 3.2 cm LA A4 area: 9.9 cm2 RA A4 area: 12.0 cm2 TAPSE: 1.8 cm Time Measurements MV dec time: 0.28 sec Doppler Measurements & Calculations MV E max jameel: 64.5 cm/sec Lat Peak E' Jaemel: 6.7 cm/sec Med Peak E' Jameel: 7.6 cm/sec MV A max jameel: 127.5 cm/sec E/E' lat: 9.6 E/E' med: 8.5 MV E/A: 0.51 MV dec slope: 228.8 cm/sec2 Ao V2 max: 163.4 cm/sec LV V1 max: 136.1 cm/sec Ao max P.7 mmHg LV V1 max P.4 mmHg Ao V2 mean: 125.9 cm/sec LV V1 mean P.4 mmHg Ao mean P.7 mmHg LV V1 mean: 100.3 cm/sec Ao V2 VTI: 32.3 cm LV V1 VTI: 23.5 cm AV (velocity ratio): 0.73 JERAMY(I,D): 2.2 cm2 JERAMY(V,D): 2.6 cm2 SV(LVOT): 72.6 ml PA V2 max: 80.1 cm/sec TR max jameel: 349.7 cm/sec TR max P.9 mmHg ECHO/Echo Complete Interpretation Summary The estimated ejection fraction is 65 %. Mildly dilated right ventricle. Ordering Physician: Tyler Singh V Referring Physician: MD Nito Douglas Performed By: Nikki Brandon, KELLIE
== END | disposition home or self-care (01) ==
PROVIDERS: PCP Family Medicine; Referring Provider Internal Medicine Pulmonary Disease; Visit Provider Internal Medicine Pulmonary Disease
DX: R06.00 Dyspnea, unspecified (principal)
CPT/HCPCS: 93306

== ENCOUNTER → 2024-08-07 | Outpatient (CLI) | payer MEDICARE, SELFPAY | END | disposition home or self-care (01) | LOC: MTLAB 11:33 | PROVIDERS: PCP Family Medicine; Referring Provider Internal Medicine Pulmonary Disease; Visit Provider Internal Medicine Pulmonary Disease | DX: G47.33 Obstructive sleep apnea (adult) (pediatric) (principal); R09.02 Hypoxemia | CPT/HCPCS: 36415; 83880 ==

== ENCOUNTER → 2024-08-31 | Outpatient (CLI) | payer MEDICARE, SELFPAY ==
--- NOTE | 2024-08-31 13:29 | CT_ITS ---
PROCEDURE: CHEST WITHOUT CONTRAST REASON FOR EXAM: HYPOXEMIA TECHNIQUE: Chest CT without contrast. COMPARISON: 11/2020 FINDINGS: 1.1 cm right lower lobe calcification. This is unchanged. 6 mm right lower lobe calcification detected. Calcified hilar and mediastinal lymph nodes compatible with old healed granulomas disease Bronchial thickening. No new or growing nodules. No localizing infiltrate. Patchy bibasilar atelectasis Heart size is enlarged. No evidence of ascending aortic aneurysm No pneumothorax or pleural effusions Stable thyroid gland. Tortuous vascularity suggests systemic hypertension. Demineralized bones CT/Chest without Contrast IMPRESSION: Stable examination. Findings of old healed granulomatous disease. Bronchial t hickening. Heart size is enlarged. No localizing infiltrate One or more dose reduction techniques were used (e.g., Automated exposure contr ol, adjustment of the mA and/or kV according to patient size, use of iterative reconstruction technique). Reading Location: [id number]
== END | disposition home or self-care (01) ==
LOC: CT 13:12
PROVIDERS: PCP Family Medicine; Referring Provider Internal Medicine Pulmonary Disease; Visit Provider Internal Medicine Pulmonary Disease
DX: R09.02 Hypoxemia (principal); R06.00 Dyspnea, unspecified
CPT/HCPCS: 71250

== ENCOUNTER → 2024-09-14 | Outpatient (CLI) | payer MEDICARE, SELFPAY ==
--- NOTE | 2024-09-14 14:35 | STRESSREP ---
Stress Test Report Exercise myocardial perfusion stress test. 79-year-old lady with a history of chest pain Stress protocol: Resting EKG demonstrates normal sinus rhythm with a rate of 67 bpm resting blood pressure is 112/60 mmHg. The patient exercised according to the regular Ilan protocol for a total duration of 1 minute and 49 seconds attaining a maximum heart rate of 144 bpm which was 102% of maximum predicted heart rate; the maximum workload was 4.6 metabolic equivalents. At rest there were no ST or T wave changes noted to suggest ischemia and at peak exercise upsloping ST changes only were noted which did not meet the criteria for ischemia. No clinical angina was noted the test was terminated due to the target heart rate being achieved/fatigue. The peak blood pressure was 188/90 mmHg. Rate-pressure product was 15,700. Myocardial perfusion protocol. 11.7 mCi of technetium 99m sestamibi was injected at rest. The patient exercised according to regular Ilan protocol for total duration of 1 minute and 49 seconds and at peak exercise 34.6 mCi of technetium 99m sestamibi was injected stress images were obtained stress and rest images were reconstructed in comparing the short axis vertical long and horizontal long axis. Gated images were also obtained. Perfusion SPECT analysis: Review of the stress images demonstrate normal uptake of tracer noted in all areas of the myocardium. The resting images similarly demonstrate normal uptake of tracer noted in all areas of the myocardium. No areas of reversibility are noted to suggest ischemia no previous infarct was noted. Gated SPECT analysis: The gated ejection fraction is 80% plus. Conclusion: Normal exercise myocardial perfusion stress test at a low workload Preserved ejection fraction.
== END | disposition home or self-care (01) ==
LOC: CVS 06:47
PROVIDERS: PCP Family Medicine; Referring Provider Physician Assistant Medical; Visit Provider Physician Assistant Medical
DX: R07.9 Chest pain, unspecified (principal)
CPT/HCPCS: 78452; 93017; A9500

== ENCOUNTER → 2024-11-16 | Outpatient (CLI) | payer MEDICARE, SELFPAY ==
[2024-11-16 10:10] LABS: Absolute Lymphocyte Count 1.74 X10^3/uL (0.83-4.51); Absolute Neutrophil Count 2.2 X10^3/uL (2.0-7.7); Basophil# 0.04 X10^3/uL; Basophil% 0.9 % (0-1); Eosinophil# 0.07 X10^3/uL; Eosinophils% 1.6 % (0-5); Hematocrit 41.4 % (37-47); Hemoglobin 13.1 g/dL (12.0-15.0); Lymphocyte # 1.74 X10^3/ul (0.83-4.51); Lymphocyte % 40.2 % (19-41); Mean Corp Hgb Conc 31.6 g/dL (32-36); Mean Corpuscular Hgb 28.3 pg (27.0-32.0); Mean Corpuscular Volume 89.4 fL (81-99); Mean Platelet Vol. 12.7 fl (6.2-12.0); Monocyte# 0.28 X10^3/uL; Monocyte% 6.5 % (0-10); NRBC Flagged by Analyzer 0 % (0-5); Neutrophil # 2.19 X10^3/uL (2.7-7.7); Neutrophil % 50.6 % (47-70); Platelet Count 165 K/mm3 (150-450); RBC Distribution Width CV 13.7 % (11.6-14.6); RBC Distribution Width SD 45.1 fl (35.1-43.9); Red Blood Count 4.63 M/mm3 (4.2-5.4); White Blood Count 4.3 K/mm3 (4.4-11.0)
[2024-11-16 10:33] LABS: Anion Gap 12 (5-15); BUN 23 mg/dL (4-19); BUN/Creat Ratio 26.9 RATIO (10-20); Calcium,Total 8.7 mg/dL (7.6-11.0); Carbon Dioxide 23.1 mmol/L (21.0-32.0); Chloride 104 mmol/L (98-108); Creatinine, Serum 0.85 mg/dL (0.70-1.20); EST Glomerular Filtration Rate 70 (>60); Glucose 103 mg/dL (70-99); Potassium 4.4 mmol/L (3.3-5.1); Sodium Level 139 mmol/L (133-145)
[2024-11-16 11:35] LABS: International Normalized Ratio 0.9; Prothrombin Time (Protime)PT. 12.3 SECONDS (11.7-14.9)
[2024-11-16 11:36] LABS: Partial Thromboplast Time 27.4 Seconds (24.1-36.2)
== END | disposition home or self-care (01) ==
LOC: LAB 08:55
PROVIDERS: PCP Family Medicine; Referring Provider Physician Assistant Medical; Visit Provider Physician Assistant Medical
DX: I10 Essential (primary) hypertension (principal); I27.21 Secondary pulmonary arterial hypertension; R07.9 Chest pain, unspecified
CPT/HCPCS: 36415; 80048; 85025; 85610; 85730

== ENCOUNTER 2024-12-12 07:08 | Day surgery (SDC) | payer MEDICARE, SELFPAY ==
[2024-12-11 08:09] VITALS: BMI 31.9
--- OUTSIDE RECORDS SUMMARY | 2024-12-12 07:15 | XMS RPT_ITS | CCD ---
Author Organization [facility] Care Team Providers Care Converting Technician Name Role Phone IRWIN, HUGH Jansen Attending Unavailable IRWIN, HUGH Jansen Primary Care Unavailable IRWIN, HUGH Jansen Admitting Unavailable IRWIN, HUGH Jansen Attending Unavailable IRWIN, HUGH Jansen Primary Care Unavailable IRWIN, HUGH Jansen Admitting Unavailable Kenn Beauchamp MD Primary Care Provider Kenn Beauchamp MD Primary Care Provider Kenn Beauchamp MD Primary Care Provider MD Kenn Beauchamp Primary Care Provider MD Kenn Francisco Referring Provider Unavailab Lopez DIGITAL WATCH ASSEMBLER, DIGITAL WATCH ASSEMBLER-C Sarah Attending Provider Kenn Beauchamp MD Primary Care Provider MD Kenn Beauchamp Primary Care Provider MD Kenn Francisco Referring Provider Unavailab lonny Kasper DIGITAL WATCH ASSEMBLER, DIGITAL WATCH ASSEMBLER-C Sarah Attending Provider Dr. Nicanor Alvarado Emergency Provider [phone] Dr. Ella Hinojosa Admit Provider Dr. Ella Hinojosa Attending Provider Dr. Ella Hinojosa Other Provider Dr. Fernando Jean-Baptiste Other Provider MD Kenn Fontana Primary Care Provider Un available MD Kenn Fontana Referring Provider Unava Dr. Tyler Bradley Attending Provider Dr. Tyler Coffman Other Provider Dr. Fernando Jean-Baptiste Attending Provider [phone] Gregg Butterfield Attending Provider Dr. Ella Hinojosa Referring Provider Friend, Dr. Bowers Attending Provider Dr. Harvinder Palmer Attending Provider Kenn Beauchamp MD Primary Care Provider Trudy APPLE CHECKER.VALUE STREAM MANAGER, Bessy Unavailable Lion APPLE CHECKER.VALUE STREAM MANAGER, Gary Unavailable Dr. Kenn Beauchamp MD Primary Care Provider Samantha KING, Dr. Tyler Haddad Attending Provider Samantha KING, Dr. Tyler Haddad Referring Provider Marlin KING, Dr. Shah Attending Provider Dr. Kenn Beauchamp MD Referring Provider Natali Jaramillo Attending Provider Natali Jaramillo Other Provider Winsome PAULINO, Natali Singh Referring Provider Nichole KING, Dr. Santos Attending Provider KENN BEAUCHAMP Referring Unavailable MARTELLBROKENN TOBAR Primary Care Unavailable KENN BEAUCHAMP Referring Unavailable KENN BEAUCHAMP Primary Care Unavailable KENN BEAUCHAMP Attending Unavailable KENN BEAUCHAMP Primary Care Unavailable BESSY YATES Attending Unavailable KENN BEAUCHAMP Primary Care Unavailable EAMON YATESLEY Attending Unavailable KENN BEAUCHAMP Primary Care Unavailable LEEANNAHOF BESSY Referring Unavailable MARTELLBROKENN TOBAR Primary Care Unavailable KENN BEAUCHAMP Referring Unavailable KENN BEAUCHAMP Primary Care Unavailable KENN BEAUCHAMP Attending Unavailable KENN BEAUCHAMP Primary Care Unavailable Nito KING, Dr. Cole Primary Care Provider [phone] Samantha KING, Dr. Tyler Haddad Attending Provider Dr. Tyler Singh MD, V Referring Provider Leeannahopaty APPLE CHECKER.VALUE STREAM MANAGER, Bessy Long Unavailable Aminatack, Kenn Primary Care Unavailable Winsome PAULINO, Natali Singh Consulting Unavail able Sibilia, Tyler V Referring Unavailable Sibilia, Tyler V Attending Unavailable Winsome PAULINO, Natali Singh Attending Unavail able Elderbrock, Kenn Primary Care Unavailable Winsome PAULINO, Natali Singh Referring Unavail able Winsome PAULINO, Natali Singh Referring Unavail able Elderbrock, Kenn Primary Care Unavailable Winsome PAULINO, Natali Singh Attending Unavail able Elderbrock, Kenn Primary Care Unavailable Sibilia, Ytler V Attending Unavailable Sibilia, Tyler V Referring Unavailable Elderbrock, Kenn Primary Care Unavailable Nichole, Tom Attending Unavailable Elderbrock, Kenn Primary Care Unavailable Sibilia, Tyler V Attending Unavailable Sibilia, Tyler V Referring Unavailable Winsome PAULINO, Natali Singh Attending Unavail able Elderbrock, Kenn Primary Care Unavailable Elderbrock, Kenn Referring Unavailable Winsome PAULINO, Natali Singh Attending Unavail able Elderasmita, Kenn Primary Care Unavailable Elderbrock, Kenn Referring Unavailable Elderbrock, Kenn Primary Care Unavailable Alyssa Isaac Attending Unavailabl e Elderbrock, Kenn Primary Care Unavailable Winsome PAULINO, Natali Singh Referring Unavail able Winsome PAULINO, Natali Singh Consulting Unavail able Nichole, Tom Attending Unavailable Elderbrock, Kenn Primary Care Unavailable Sibilia, Tyler V Referring Unavailable Sibilia, Tyler V Attending Unavailable Elderbrock, Kenn Primary Care Unavailable Sibilia, Tyler V Referring Unavailable Sibilia, Tyler V Attending Unavailable Allergies Allergy Classification Reported Allergen(s) Allergy Type Date of Onset Reaction(s) Facility (20 sources) Acetaminophen / HYDROcodone; Translations: [HYDROCODONE-ACET AMINOPHEN] Drug Allergy 1 Vomiting [facility] (20 sources) Acetaminophen / oxyCODONE; Translations: [OXYCODONE-ACETAM INOPHEN] Drug Allergy 1 Vomiting [facility] (20 sources) Amoxicillin; Translations: [AMOXICILLIN] Drug Allergy 5 Rash [facility] (20 sources) carBAMazepine; Translations: [CARBAMAZEPINE] Drug Allergy 9 Rash [facility] (20 sources) Codeine; Translations: [CODEINE] Drug Allergy 1 Vomiting [facility] (20 sources) fentaNYL; Translations: [FENTANYL] Drug Allergy 0 GI Upset [facility] (20 sources) gabapentin; Translations: [GABAPENTIN] Drug Allergy 9 Intolerance [facility] (20 sources) Meperidine; Translations: [MEPERIDINE HCL] Drug Allergy 5 Intolerance [facility] (20 sources) rofecoxib; Translations: [ROFECOXIB] Drug Allergy 5 Rash [facility] (20 sources) topiramate; Translations: [TOPIRAMATE] Drug Allergy 9 Intolerance [facility] (20 sources) traMADol; Translations: [TRAMADOL] Drug Allergy 1 Vomiting [facility] (20 sources) Carbamazepine Analogues; Translations: [CARBAMAZEPINE ANALOGUES] Propensity to adverse reactions to drug 9 Vomiting [facility] (2 sources) Acetaminophen Drug Allergy 2 Vomiting [facility] (7 sources) HYDROcodone Drug Allergy 2 Vomiting [facility] (7 sources) Meperidine Drug Allergy 2 Vomiting [facility] (7 sources) oxyCODONE Drug Allergy 2 Vomiting [facility] (1 source) Amoxicillin Drug Allergy 5 [facility] (1 source) carBAMazepine Drug Allergy 5 [facility] (1 source) Codeine Drug Allergy 5 [facility] (1 source) fentaNYL Drug Allergy 5 [facility] (1 source) gabapentin Drug Allergy 5 [facility] (1 source) HYDROcodone Drug Allergy 5 [facility] (1 source) Meperidine Drug Allergy 5 [facility] (1 source) oxyCODONE Drug Allergy 5 [facility] (1 source) rofecoxib Drug Allergy 5 [facility] (1 source) topiramate Drug Allergy 5 [facility] (1 source) traMADol Drug Allergy 5 [facility] Rep[facility] Medications Current Medications Medication Drug Class(es) Dates Sig (Normalized) Sig (Original) [id number] 200 actuat albuterol 0.09 mg/actuat metered dose inhaler (13 sources) beta2-Adrenergic Agonist Start: 08-18-2024 Albuterol Sulfate 90 mcg/actuation HFA aerosol inhaler Active 2 NMA INHALATION EVERY 6 HOURS as needed August 18, 2024 1:00am Start: 05-03-2024 take 1 puff(s) by in halation every six hours as needed for wheezing albuterol HFA (PROVENTIL HFA, VENTOLIN HFA) 90 mcg/actuation inhaler Inhale 1 Puff as instructed every 6 hours as needed for wheezing/shortness of breath. 05/03/2024 Active Collagen (1 source) Start: 05-21-2022 Collagen (Bovi ne) Active EACH TOPICAL May 21, 2022 12:00am doxycycline hyclate 100 mg oral tablet (1 source) Tetracycline-cla ss Drug Start: 02-09-2022 End: 02-19-2022 take 1 tablet by mouth twice daily doxycycline (VIBRA-TABS) 100 mg tablet Indications: Acute bronchitis, unspecified organism Take 1 tablet by mouth twice daily for 10 days. 20 tablet 0 02/09/2022 02/19/2022 Active Comment on above: Take 1 tablet by aden th twice daily for 10 days. furosemide 40 mg oral tablet (20 sources) Loop Diuretic Start: 11-11-2021 End: 11-16-2024 take 1 tablet by mouth once daily furosemide (LASIX) 40 mg tablet Indications: Bilateral leg edema Take 1 tablet by mouth once daily. 90 tablet 3 12/21/2023 Active Start: 11-10-2021 End: 02-16-2023 take 1 tablet by mouth three times daily furosemide (LASIX) 40 mg tablet Indications: Bilateral leg edema Take 1 tablet by mouth three times daily. 270 tablet 3 11/10/2021 02/16/2023 Discontinued Start: 04-01-2021 End: 04-02-2021 take 1 tablet by mouth once daily Furosemide (Lasix) 40 mg tablet Discontinued 40 mg PO DAILY April 01, 2021 12:00am April 02, 2021 10:56am Start: 02-25-2021 End: 11-11-2021 take 1 tablet by mouth twice daily Furosemide (Lasix) 40 mg tablet Discontinued 40 mg PO TWICE A DAY April 02, 2021 10:55am November 11, 2021 9:10am Comment on above: Take 1 tablet by aden three times daily. Take 1 tablet by aden twice daily. Take 1 tablet by aden once daily. Take 1-2 tabs po daily 24 hr isosorbide mononitrate 30 mg extended release oral tablet (2 sources) Nitrate Vasodilator Start: take 1 tablet by mouth once daily in the morning, then take 1 tablet by mouth every twenty-four hours Isosorbide Mononitrate 30 mg tablet extended release 24 hr Active 30 mg PO EVERY MORNING November 16, 2024 12:00am iv contrast (will be provided with radiology test) (1 source) Start: End: inject 1 dose intravenously once iv contrast (will be provided with radiology test) MRI Brain Inject, intravenously, once for 1 dose.No IV access, insert saline lock prior to beginning of sedation, infusion, injection of imaging exam.Discontinue saline lock post exam. If Pt. has a central line or IVAD, may access for administration according to line specific nursing protocol.Once exam is complete flush line and de-access according to line specific nursing protocol in the MR contrast administration guidelines link 1 Each 09/12/2024 09/13/2024 Active levothyroxine sodium 0.1 mg oral tablet (20 sources) l-Thyroxine Start: End: take 1 capsule by mouth once daily Levothyroxine 100 mcg capsule Discontinued 100 ug PO DAILY April 01, 2021 12:00am November 11, 2021 9:08am Start: 01-20-2021 End: 01-04-2024 take 1 tablet by mouth once daily levothyroxine (SYNTHROID) 100 mcg tablet Indications: Hypothyroidism, unspecified type take 1 tablet by mouth once daily on an empty stomach 90 tablet 3 01/04/2024 Active Comment on above: Take 1 tablet by aden once daily. Take on empty stomach losartan potassium 100 mg oral tablet (20 sources) Angiotensin 2 Receptor Andre Start: 2020 End: 2023 take 1 tablet by mouth once daily losartan (COZAAR) 100 mg tablet Indications: Essential hypertension, benign Take 1 tablet by mouth once daily. 90 tablet 3 03/16/2024 Active Comment on above: Take 1 tablet by aden th once daily. methylPREDNISolone (1 source) Corticosteroid Start: 2022 End: 2022 methylPREDNISolone (MEDROL, ANITA,) 4 mg Dose-Pack Indications: Acute midline low back pain with right-sided sciatica Follow dosing instructions, take with food. 21 tablet 0 09/14/2022 09/20/2022 Active Comment on above: Follow dosing instru ctions, take with food. montelukast 10 mg oral tablet (20 sources) Leukotriene Receptor Antagonist Start: 2020 End: 2024 take 1 tablet by mouth at bedtime Montelukast (Singulair) 10 mg tablet Active 10 mg PO AT BEDTIME August 13, 2021 1:00am Comment on above: Take 1 tablet by aden th daily at bedtime. nirmatrelvir tablet 300 mg (150 mg x 2) and ritonavir tablet 100 mg in a dose pack (PAXLOVID) (1 source) Start: 2022 End: 2022 nirmatrelvir tablet 300 mg (150 mg x 2) and ritonavir tablet 100 mg in a dose pack (PAXLOVID) Indications: COVID Administer TWO pink nirmatrelvir 150 mg tablets and ONE white ritonavir 100 mg tablet for a total of three tablets twice daily. 30 tablet 0 07/27/2022 08/01/2022 Active Comment on above: Administer TWO pink nirmatrelvir 150 mg tablets and ONE white ritonavir 100 mg tablet for a total of three tablets twice daily. predniSONE 10 mg oral tablet (10 sources) Start: 2024 End: 2024 predniSONE (DELTASONE) 10 mg tablet Indications: Left sided sciatica Take 4 tabs daily for 3 days, then 2 tabs daily for 3 days, then 1 tab daily for 3 days with food. 21 tablet 09/01/2024 09/10/2024 Active Start: 04-19-2021 End: 05-12-2021 Prednisone 20 MG tablet Disc ontinued 0 .ROUTE .COMPLEX April 19, 2021 12:00am May 12, 2021 10:29am 3 tabs p.o. daily days 1 through 4, then 2 tabs p.o. daily days 5 through 8, then 1 tab p.o. daily day 9 through 12 pregabalin 200 mg oral capsule (20 sources) Start: 07-10-2024 End: 01-06-2025 take 1 capsule by mouth once daily Pregabalin (LYRICA) 200 mg capsule Indications: Trigeminal neuralgia Take 1 capsule by mouth once daily for 180 days. 90 capsule 1 07/10/2024 01/06/2025 Active Start: 10-11-2023 End: 06-14-2024 take 1 capsule by mouth once daily Pregabalin (LYRICA) 200 mg capsule Indications: Trigeminal neuralgia Take 1 capsule by mouth once daily for 90 days. 90 capsule 01/10/2024 03/16/2024 Discontinued Start: 12-10-2022 End: 08-18-2024 take 1 capsule by mouth twice daily Pregabalin 200 mg capsule Discontinued 200 mg PO TWICE A DAY December 10, 2022 12:00am August 18, 2024 8:59am Start: 05-12-2021 End: 12-10-2022 take 1 capsule by mouth three times daily Pregabalin (Lyrica) 100 mg capsule Discontinued 100 mg PO THREE TIMES A DAY May 12, 2021 10:28am December 10, 2022 9:28am Start: 04-02-2021 End: 05-12-2021 take 1 capsule by mouth every six hours Pregabalin (Lyrica) 100 mg capsule Discontinued 100 mg PO EVERY 6 HOURS April 02, 2021 10:55am May 12, 2021 10:30am Start: 04-01-2021 End: 04-02-2021 take 1 capsule by mouth once daily Pregabalin (Lyrica) 100 mg capsule Discontinued 100 mg PO DAILY April 01, 2021 12:00am April 02, 2021 10:56am Start: 10-17-2020 End: 02-16-2023 take 1 capsule by mouth four times daily pregabalin (LYRICA) 100 mg capsule Indications: Trigeminal neuralgia Take 1 capsule by mouth four times daily for [address] Yadav prescribes. 0 10/17/2020 02/16/2023 Discontinued Comment on above: Take 1 capsule by [facility] four times daily for [address] Yadav prescribes. Take 1 capsule by mo uth twice daily. [address] Yadav prescribes. sennosides, mcc 25 mg oral tablet (20 sources) Start: 2 take 1 tablet by mouth once daily at bedtime Sennosides 25 mg tab Take 1 tablet by mouth daily at bedtime. 07/31/2021 Active Comment on above: Take 1 tablet by aden daily at bedtime. SPACE CHAMBER (9 sources) Start: SPACE CHAMBER 1 Device one time only. 07/29/2024 Active tiZANidine 4 mg oral tablet (10 sources) Central alpha-2 Adrenergic Agonist Start: 5 End: take 1 tablet by mouth three times daily as needed for pain tiZANidine (ZANAFLEX) 4 mg tablet Indications: Left sided sciatica Take 1 tablet by mouth three times a day as needed (Muscle tension/pain) for up to 10 days. 30 tablet 09/01/2024 09/11/2024 Active Start: 05-12-2021 End: 08-13-2021 take 1 capsule by mouth at bedtime as needed Tizanidine (Zanaflex) 4 mg capsule Discontinued 4 mg PO AT BEDTIME as needed May 12, 2021 1:00am August 13, 2021 11:05am Completed/Discontinued Medications Medication Drug Class(es) Dates Sig (Normalized) Sig (Original) acetaminophen 325 mg / HYDROcodone bitartrate 5 mg oral tablet (17 sources) Opioid Agonist Start: 11-11-2021 End: 05-21-2022 take 1 tablet by mouth once daily Hydrocodone-Acetami nophen Discontinued 1 TABLET PO DAILY November 11, 2021 9:07am May 21, 2022 9:58am Start: 05-12-2021 End: 11-11-2021 Hydrocodone-Acetaminophen 5- 325 mg tablet Discontinued 1 {tbl} PO Q8H as needed for Pain May 12, 2021 1:00am November 11, 2021 9:10am Start: 05-12-2021 End: 11-11-2021 take 1 tablet by mouth every eight hours Hydrocodone-Acetaminophen Discontinued 1 TABLET PO Q8H May 12, 2021 1:00am November 11, 2021 9:10am Start: 04-22-2021 End: 05-21-2022 Hydrocodone-Acetaminophen 5- 325 mg tablet Discontinued 1 {tbl} PO DAILY as needed for Pain November 11, 2021 9:07am May 21, 2022 9:58am Comment on above: Pt takes 1/2 pill 2x a day aspirin 81 mg delayed release oral tablet (7 sources) Platelet Aggregation Inhibitor, Nonsteroidal Anti-inflammatory Drug Start: 2 End: 2 take 1 tablet by mouth once daily Aspirin (Adult Aspirin Regimen) 81 mg tablet,delayed release (DR/EC) Discontinued 81 mg PO DAILY August 18, 2021 1:00am November 11, 2021 9:07am atenolol 50 mg oral tablet (7 sources) beta-Adrenergic Andre Start: 1 End: 1 take 1 tablet by mouth once daily Atenolol 50 mg tablet Discontinued 50 mg PO DAILY April 01, 2021 12:00am April 02, 2021 11:19am gabapentin 300 mg oral capsule (4 sources) Anti-epileptic Agent Start: 5 End: 5 take 1 capsule by mouth once daily Gabapentin 300 mg capsule Discontinued 300 mg PO daily August 18, 2024 1:00am November 16, 2024 7:55am meloxicam 7.5 mg oral tablet (15 sources) Nonsteroidal Anti-inflammatory Drug Start: 1 End: 2 take 1 tablet by mouth once daily Meloxicam 7.5 mg tablet Discontinued 7.5 mg PO DAILY April 02, 2021 12:00am August 13, 2021 11:04am Start: 04-01-2021 End: 04-02-2021 take 1 tablet by mouth once daily Meloxicam 15 mg tablet Discontinued 15 mg PO DAILY April 01, 2021 12:00am April 02, 2021 10:56am Comment on above: Take 1 tablet by aden th once daily. Take with food. Multivitamin (Daily Multi-Vitamin) tablet (7 sources) Start: 08-13-2021 End: 08-18-2024 Multivitamin (Daily Multi-Vitamin) tablet Discontinued 1 {tbl} PO DAILY August 13, 2021 1:00am August 18, 2024 8:59am Start: 08-13-2021 take 1 tablet by aden th once daily Multivitamin (Daily Multi-Vitamin) tablet Active 1 TABLET PO DAILY August 13, 2021 1:00am Start: 08-13-2021 take 1 tablet by aden th once daily Multivitamin (Daily Multi-Vitamin) tablet Active 1 TABLET PO DAILY August 13, 2021 12:00am multivitamin tablet (12 sources) Start: 07-31-2021 End: 08-26-2023 take 1 tablet by mouth once daily multivitamin tablet Take 1 tablet by mouth once daily. 0 07/31/2021 08/26/2023 Discontinued Start: 07-31-2021 take 1 tablet by aden th once daily multivitamin tablet Take 1 tablet by mouth once daily. 0 07/31/2021 Active Comment on above: Take 1 tablet by aden th once daily. ondansetron 4 mg oral tablet (1 source) Serotonin-3 Receptor Antagonist Start: 1 End: 2 ondansetron (ZOFRAN) 4 mg tablet potassium chloride 20 meq extended release oral tablet (9 sources) Start: 3 End: 3 take 1 tablet by mouth once daily Potassium Chloride 20 mEq tablet extended release Discontinued 20 meq PO DAILY September 05, 2022 12:00am December 10, 2022 9:28am Comment on above: Take 20 mEq by mouth once daily. Problems Active Problems Problem Classification Problem Date Documented Date Episodic/Chronic Acute bronchitis (1 source) Acute bronchitis; Translations: [Acute bronchitis, unspecified] Episodic Biliary tract disease (8 sources) Biliary calculus; Translations: [Calculus of gallbladder without cholecystitis without obstruction] 08-30-2022 Episodic Cancer; other and unspecified primary (1 source) Personal history of neoplasm of uncertain behavior; Translations: [History of resection of meningioma] Onset: 09-22-2024 Episodic Conditions associated with dizziness or vertigo (16 sources) Dizziness; Translations: [Dizziness and giddiness] Onset: 09-22-2024 05-12-2021 Episodic Disorders of lipid metabolism (20 sources) Mixed hyperlipidemia; Translations: [Mixed hyperlipidemia] Onset: 10-10-2007 Chronic Essential hypertension (20 sources) Benign essential hypertension; Translations: [Essential (primary) hypertension] Onset: 08-11-2010 Chronic Fluid and electrolyte disorders (6 sources) Hypokalemia; Translations: [Hypokalemia] 09-04-2022 Episodic Heart valve disorders (3 sources) Mitral valve annular calcification; Translations: [Mitral annular calcification] 08-10-2024 Chronic Immunizations and screening for infectious disease (4 sources) Patient encounter status; Translations: [Encounter for immunization] 03-16-2024 Episodic Nonspecific chest pain (19 sources) Chest pain; Translations: [Chest pain, unspecified] Onset: 08-10-2024 04-01-2021 Episodic Nutritional deficiencies (20 sources) Vitamin D deficiency; Translations: [Vitamin D deficiency, unspecified] Onset: 03-21-2010 03-21-2010 Chronic Other and unspecified benign neoplasm (7 sources) Intracranial meningioma; Translations: [Benign neoplasm of cerebral meninges] 04-01-2021 Chronic Comment on above: craniotomy Other liver diseases (6 sources) Elevated liver enzymes level; Translations: [Abnormal levels of other serum enzymes] 08-30-2022 Episodic Other liver diseases (2 sources) Abnormal levels of other serum enzymes; Translations: [Other nonspecific abnormal serum enzyme levels] 08-30-2022 Episodic Other liver diseases (6 sources) Enzyme level - finding; Translations: [Elevated transaminase measurement] 09-02-2022 Episodic Other lower respiratory disease (10 sources) Dyspnea; Translations: [Dyspnea, unspecified] 04-01-2021 Episodic Other lower respiratory disease (1 source) Shortness of breath; Translations: [SOB (shortness of breath)] Onset: 08-10-2024 Episodic Other nervous system disorders (1 source) Disorder of left sciatic nerve 09-01-2024 Chronic Other nutritional; endocrine; and metabolic disorders (20 sources) Obese class I; Translations: [Obesity, unspecified] Onset: 05-15-2019 05-15-2019 Chronic Other nutritional; endocrine; and metabolic disorders (7 sources) Obesity; Translations: [Obesity, unspecified] 04-01-2021 Chronic Other upper respiratory infections (20 sources) Chronic sinusitis; Translations: [Other chronic sinusitis] Onset: 05-18-2005 05-18-2005 Chronic Pulmonary heart disease (19 sources) Pulmonary arterial hypertension; Translations: [Secondary pulmonary arterial hypertension] Onset: 11-16-2024 Chronic Residual codes; unclassified (20 sources) Sleep apnea; Translations: [Sleep apnea, unspecified] Onset: 12-03-2008 12-03-2008 Chronic Residual codes; unclassified (1 source) Obstructive sleep apnea (adult) (pediatric); Translations: [Obstructive sleep apnea (adult) (pediatric)] Onset: 08-18-2024 Chronic Residual codes; unclassified (1 source) Acquired absence of other specified parts of digestive tract; Translations: [Other acquired absence of organ] 09-05-2022 Episodic Residual codes; unclassified (1 source) Other specified postprocedural states; Translations: [History of resection of meningioma] Onset: 09-22-2024 Episodic Sprains and strains (1 source) Strain of muscle of lower limb; Translations: [Strain of muscle, fascia and tendon of unspecified hip, initial encounter] Episodic Thyroid disorders (20 sources) Hypothyroidism; Translations: [Hypothyroidism, unspecified] Onset: 10-11-2007 Chronic Unclassified (1 source) Mitral annular calcification; Translations: [Mitral annular calcification] Onset: 08-10-2024 Viral infection (1 source) Disease caused by 2019-nCoV; Translations: [COVID-19] Episodic Past or Other Problems Problem Classification Problem Date Documented Date Episodic/Chronic Diabetes mellitus without complication (4 sources) Increased glucose level; Translations: [Other abnormal glucose] Onset: 03-06-2024 08-26-2023 Episodic Other lower respiratory disease (4 sources) Dyspnea, unspecified; Translations: [Other respiratory abnormalities] Onset: 08-17-2024 Episodic Other lower respiratory disease (1 source) Hypoxemia; Translations: [Hypoxemia] Onset: 09-11-2024 Episodic Other nervous system disorders (20 sources) Trigeminal neuralgia; Translations: [Trigeminal neuralgia] Onset: 05-18-2005 Episodic Other nervous system disorders (20 sources) History of meningioma; Translations: [Personal history of benign neoplasm of the brain] Onset: 07-14-2010 01-16-2021 Episodic Other nervous system disorders (20 sources) Pseudomeningocele; 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] Onset: 07-27-2019 08-08-2019 Episodic Other nervous system disorders (1 source) Trigeminal neuralgia; Translations: [Trigeminal neuralgia] Onset: 08-08-2019 Episodic Pancreatic disorders (not diabetes) (9 sources) Acute pancreatitis; Translations: [Biliary acute pancreatitis without necrosis or infection] Onset: 08-18-2024 08-30-2022 Episodic Residual codes; unclassified (20 sources) Bilateral lower limb edema; Translations: [Localized edema] Onset: 01-11-2020 Episodic Residual codes; unclassified (20 sources) Family history of malignant neoplasm of gastrointestinal tract; Translations: [Family history of malignant neoplasm of digestive organs] Onset: 10-10-2007 10-10-2007 Episodic Residual codes; unclassified (4 sources) Localized edema; Translations: [Edema] Onset: 01-11-2020 Episodic Spondylosis; intervertebral disc disorders; other back problems (20 sources) Low back pain; Translations: [Low back pain] Onset: 11-13-2011 11-13-2011 Episodic Results Test Name Value Interpretation Reference Range Facility Absolute lymphocyte countOrd ered By: Natali Schumacher on 11-16-2024 Lymphocytes Auto (Unsp spec) [#/Vol] 1.74 10*3/uL 0.83-4.51 [facility] Absolute neutrophil countOrd ered By: Natali Schumacher on 11-16-2024 Neutrophils (Bld) [#/Vol] 2.2 10*3/uL 2.0-7.7 [facility] Activated partial thrombopla stin time (aPTT) in platelet poor plasma by coagulation aOrdered By: Natali Schumacher on 11-16-2024 aPTT Coag (PPP) [Time] 27.4 s 24.1-36.[address] [facility] Anion gap in Serum or Plasma Ordered By: Natali Schumacher on 11-16-2024 Anion gap [Moles/Vol] 12 mmol/L - [facility] Automated lymphocyte count a s percentage of total leukocytesOrdered By: Natali Schumacher on 11-16-2024 Lymphocytes/100 WBC Auto (Unsp spec) 40.2 % [facility] BUN/creatinine ratioOrdered By: Natali Schumacher on 11-16-2024 Urea nitrogen/Creatinine [Mass ratio] 26.9 mg/mg High 10- [facility] Basic Metabolic Profile (BMP )on 11-16-2024 BUN/CRE 26.9 RATIO High 04-09 [facility] Comment on above: Performed By: #### L 100.0100, L500.2500, L300.4310, L300.3900 #### [facility] [address] [place], [address] Calcium [Mass/Vol] 8.7 mg/dL Normal 7.6-11.0 [facility] Comment on above: Performed By: #### L 100.0100, L500.2500, L300.4310, L300.3900 #### [facility] [address] [place], [address] Chloride [Moles/Vol] 104 mmol/L Normal 98-108 [facility] Comment on above: Performed By: #### L 100.0100, L500.2500, L300.4310, L300.3900 #### [facility] [address] [place], [address] CO2 [Moles/Vol] 23.1 mmol/L Normal 21.0-32.0 [facility] Comment on above: Performed By: #### L 100.0100, L500.2500, L300.4310, L300.3900 #### [facility] [address] [place], [address] Creatinine [Mass/Vol] 0.85 mg/dL Normal 0.70-1.20 [facility] Comment on above: Performed By: #### L 100.0100, L500.2500, L300.4310, L300.3900 #### [facility] [address] [place], [address] GAP 12 Normal 5-15 [facility] Comment on above: Performed By: #### L 100.0100, L500.2500, L300.4310, L300.3900 #### [facility] [address] [place], [address] GFR/1.73 sq M.predicted among non-blacks MDRD (S/P/Bld) [Vol rate/Area] 70 mL/min/{1.73_m2} Normal >60 [facility] Comment on above: Result Comment: mL/m in/1.73m2 CKD-EPI Creatinine Equation (2020) Performed By: #### L 100.0100, L500.2500, L300.4310, L300.3900 #### [facility] [address] [place], [address] Glucose [Mass/Vol] 103 mg/dL High 70-99 [facility] Comment on above: Performed By: #### L 100.0100, L500.2500, L300.4310, L300.3900 #### [facility] [address] [place], [address] Potassium [Moles/Vol] 4.4 mmol/L Normal 3.3-5.1 [facility] Comment on above: Performed By: #### L 100.0100, L500.2500, L300.4310, L300.3900 #### [facility] [address] [place], [address] Sodium [Moles/Vol] 139 mmol/L Normal 133-145 [facility] Comment on above: Performed By: #### L 100.0100, L500.2500, L300.4310, L300.3900 #### [facility] [address] [place], [address] Urea nitrogen [Mass/Vol] 23 mg/dL High 4-19 [facility] Comment on above: Performed By: #### L 100.0100, L500.2500, L300.4310, L300.3900 #### [facility] [address] [place], [address] Basophil percentageOrdered B y: Natali Schumacher on 11-16-2024 Basophils/100 WBC (Bld) 0.9 % 0-1 [facility] CBC W/Diff, Automatedon 05-2 9-2025 Absolute Lymph 1.74 X10 3/uL Normal 0.83-4.51 [facility] Comment on above: Performed By: #### L 100.0100, L500.2500, L300.4310, L300.3900 #### [facility] [address] [place], [address] Absolute Neut 2.2 X10 3/uL Normal 2.0-7.7 [facility] Comment on above: Performed By: #### L 100.0100, L500.2500, L300.4310, L300.3900 #### [facility] [address] [place], [address] Basophils/100 WBC (Bld) 0.9 % Normal 0-1 [facility] Comment on above: Performed By: #### L 100.0100, L500.2500, L300.4310, L300.3900 #### [facility] [address] [place], [address] Eosinophils/100 WBC (Bld) 1.6 % Normal 0-5 [facility] Comment on above: Performed By: #### L 100.0100, L500.2500, L300.4310, L300.3900 #### [facility] [address] [place], [address] Erythrocyte distribution width (RBC) [Ratio] 13.7 % Normal 11.6-14.6 [facility] Comment on above: Performed By: #### L 100.0100, L500.2500, L300.4310, L300.3900 #### [facility] [address] [place], [address] Hematocrit (Bld) [Volume fraction] 41.4 % Normal 37-47 [facility] Comment on above: Performed By: #### L 100.0100, L500.2500, L300.4310, L300.3900 #### [facility] [address] [place], [address] Hemoglobin (Bld) [Mass/Vol] 13.1 g/dL Normal 12.0-15.0 [facility] Comment on above: Performed By: #### L 100.0100, L500.2500, L300.4310, L300.3900 #### [facility] [address] [place], [address] IG% 0.200 Normal 0.0-0.9 [facility] Comment on above: Result Comment: IG% - Immature Granulocytes (promyelocytes, myelocytes and metamyelocytes) > 1% indicates that a LEFT SHIFT is Present. Performed By: #### L 100.0100, L500.2500, L300.4310, L300.3900 #### [facility] [address] [place], [address] Lymphocytes/100 WBC (Bld) 40.2 % Normal 19-41 [facility] Comment on above: Performed By: #### L 100.0100, L500.2500, L300.4310, L300.3900 #### [facility] [address] [place], [address] MCH (RBC) [Entitic mass] 28.3 pg Normal 27.0-32.0 [facility] Comment on above: Performed By: #### L 100.0100, L500.2500, L300.4310, L300.3900 #### [facility] [address] [place], [address] MCHC (RBC) [Mass/Vol] 31.6 g/dL Low 32-36 [facility] Comment on above: Performed By: #### L 100.0100, L500.2500, L300.4310, L300.3900 #### [facility] [address] [place], [address] MCV (RBC) [Entitic vol] 89.4 fL Normal 81-99 [facility] Comment on above: Performed By: #### L 100.0100, L500.2500, L300.4310, L300.3900 #### [facility] [address] [place], [address] Monocytes/100 WBC (Bld) 6.5 % Normal 0-10 [facility] Comment on above: Performed By: #### L 100.0100, L500.2500, L300.4310, L300.3900 #### [facility] [address] [place], [address] Neutrophils/100 WBC (Bld) 50.6 % Normal 47-70 [facility] Comment on above: Performed By: #### L 100.0100, L500.2500, L300.4310, L300.3900 #### [facility] [address] [place], [address] Nucleated RBC (Bld) [#/Vol] 0 10*3/uL Normal 0-5 [facility] Comment on above: Performed By: #### L 100.0100, L500.2500, L300.4310, L300.3900 #### [facility] [address] [place], [address] Platelet mean volume (Bld) [Entitic vol] 12.7 fL High 6.2-12.0 [facility] Comment on above: Performed By: #### L 100.0100, L500.2500, L300.4310, L300.3900 #### [facility] [address] [place], [address] Platelets (Bld) [#/Vol] 165 10*3/uL Normal 150-450 [facility] Comment on above: Performed By: #### L 100.0100, L500.2500, L300.4310, L300.3900 #### [facility] [address] [place], [address] RBC (Bld) [#/Vol] 4.63 10*6/uL Normal 4.2-5.4 [facility] Comment on above: Performed By: #### L 100.0100, L500.2500, L300.4310, L300.3900 #### [facility] [address] [place], [address] RDW SD 45.1 fl High 35.1-43.9 [facility] Comment on above: Performed By: #### L 100.0100, L500.2500, L300.4310, L300.3900 #### [facility] [address] [place], [address] WBC (Bld) [#/Vol] 4.3 10*3/uL Low 4.4-11.0 [facility] Comment on above: Performed By: #### L 100.0100, L500.2500, L300.4310, L300.3900 #### [facility] [address] [place], [address] Carbon dioxide, total [Moles /volume] in Central venous bloodOrdered By: Natali Schumacher on 11-16-2024 CO2 [Moles/Vol] 23.1 mmol/L 21.0-32.0 [facility] Cardiology Visit Reporton Cardiology Visit Report [facility] [address] [place] [address] OFFICE VISIT Date of Service: 11/16/24 MR#: [id number] Acct: [id number] Name: KATE OREILLY Rep #: [id number] : 1945 Provider: LORA Briones Age/Sex: 79/F Location: [facility] Status: Signed HPI HPI History of Present Illness Details: Kate Oreilly is a 79-year-old lady who presents today for an urgent visit for increase in SOB and CP. She was last in the office in 2022. She has no previous cardiac history who we have seen for dyspnea. Echocardiogram in 2020 demonstrated an ejection fraction of 65%, mild mitral valve insufficiency, RVSP 40 mmHg. Stress test in 2020 was negative for ischemia. She did undergo a diagnostic heart catheterization in 2021, this demonstrated normal coronary arteries with mild pulmonary hypertension. Echocardiogram in 2024 demonstrated a preserved ejection fraction of 65% with mildly dilated RV, RVSP was 55 mmHg. Stress test in 08/2024 was negative for ischemia at a low workload. She continues to have chest tightness. This is with any type of exertion. She does have SOB with any type of activity. She does have lightheadedness/dizziness. She has not had any syncopal events. She has not rode her bike since her last OV. Intake Vital Signs 08/18/24 07:13 11/16/24 07:50 Height 5 ft 7 in 5 ft 7 in Weight: 196 lb 204 lb BMI 30.7 31.9 BP 129/82 H 136/72 H Blood Pressure Location Lt brachial Lt brachial Position Sitting Sitting Respiration 18 16 Pulse 85 72 Pulse Source Monitor Intake Visit Reasons: 3 M FU Rn Ccu Required: No Accompanied by: Self Is patient in pain?: No Allergies amoxicillin Allergy (Verified 11/16/24 07:54) rash carbamazepine Allergy (Verified 11/16/24 07:54) rash rofecoxib (From Vioxx) Allergy (Verified 11/16/24 07:54) rash codeine Adverse Reaction (Verified 11/16/24 07:54) vomiting fentanyl Adverse Reaction (Verified 11/16/24 07:54) Vomiting gabapentin (From Neurontin) Adverse Reaction (Verified 11/16/24 07:54) intolerance hydrocodone (From Vicodin) Adverse Reaction (Verified 11/16/24 07:54) Vomiting meperidine (From Demerol) Adverse Reaction (Verified 11/16/24 07:54) Vomiting oxycodone (From Percocet) Adverse Reaction (Verified 11/16/24 07:54) Vomiting topiramate (From Topamax) Adverse Reaction (Verified 11/16/24 07:54) intolerance tramadol Adverse Reaction (Verified 11/16/24 07:54) Vomiting Medications ???Medication ???Instructions ???Recorded ???Confirmed ???Type montelukast 10 mg tablet 10 mg PO QHS 08/13/21 11/16/24 His tory (Singulair) levothyroxine 100 mcg tablet 100 mcg PO DAILY 11/11/21 11/16/24 History losartan 100 mg tablet 100 mg PO DAILY #90 tabs 03/30/22 11/16/24 Rx albuterol sulfate 90 mcg/actuation 2 puff inhalation Q6H PRN 11/16/24 History aerosol inhaler furosemide 40 mg tablet (Lasix) 40 mg PO QAM 11/16/24 11/16/24 His tory isosorbide mononitrate 30 mg 30 mg PO QAM #30 tabs 11/16/24 Rx tablet,extended release 24 hr pregabalin 200 mg capsule 200 mg PO QDAY 11/16/24 11/16/24 H istory Have you fallen in the past year?: No PFSH Medical History Diverticulosis Essential hypertension Hyperlipidemia Hypothyroidism Meningioma, cerebral Obesity Obstructive sleep apnea Secondary pulmonary arterial hypertension Trigeminal neuralgia Surgical History History of cataract surgery History of colonoscopy History of craniotomy (2010) History of right and left heart catheterization (09/01/21) Status post cholecystectomy [place] (trigeminal neuralgia) (2019) Family History Mother CVA (cerebral vascular accident) Heart disease PPM Father Heart disease valve replacement, PPM Brother Heart disease Brother Heart disease Sister Heart disease Sister Colon cancer Sister Breast cancer Daughter Breast cancer Social History Smoking Status: Never smoker alcohol intake: never substance use type: does not use caffeine: Yes Type: coffee Number of servings: 4 ROS Const Const: Positive for fatigue; Negative for weakness, headache(s), daytime sleepiness or difficulty sleeping ENT ENT: Positive for dizziness; Negative for headache(s) or Nosebleed/epistaxis Cardio Chest Pain: Yes Frequency: daily Character: tightness Onset: exercise Location: left chest Duration: hours Exacerbation: activity Relieving: rest Recurrence: activity Palpitations: No Edema: Bilateral (BLE trace at times ) Resp Respiratory: Positive for SOB with activit (more content not included)... Normal [facility] Chloride assayOrdered By: Chuyita Schumacher on 11-16-2024 Chloride [Moles/Vol] 104 mmol/L 98-108 [facility] Eosinophil percentageOrdered By: Natali Schumacher on 11-16-2024 Eosinophils/100 WBC (Bld) 1.6 % 0-5 [facility] Erythrocyte distribution wid th ratioOrdered By: Natali Schumacher on 11-16-2024 Erythrocyte distribution width (RBC) [Ratio] 13.7 % 11.6-14.6 [facility] Erythrocyte distribution wid th standard deviationOrdered By: Natali Schumacher on 11-16-2024 Erythrocyte distribution width (RBC) [Ratio] 45.1 fl High 35.1-43.9 [facility] Glomerular filtration rate ( GFR) estimation/1.73 sq m using serum, plasma, or whole bOrdered By: Natali Schumacher on 11-16-2024 GFR/1.73 sq M.predicted among non-blacks MDRD (S/P/Bld) [Vol rate/Area] 70 mL/min/{1.73_m2} >60 [facility] Comment on above: mL/min/1.73m2 CKD-EP I Creatinine Equation (2020) Hematocrit Auto (Bld) [Volum e fraction]Ordered By: Natali Schumacher on 11-16-2024 Hematocrit (Bld) [Volume fraction] 41.4 % 37-47 [facility] Hemoglobin measurementOrdere d By: Natali Schumacher on 11-16-2024 Hemoglobin (Bld) [Mass/Vol] 13.1 g/dL 12.0-15.0 [facility] Immature granulocytes/100 WB C Auto (Bld)Ordered By: Natali Schumacher on 11-16-2024 Immature granulocytes/100 WBC (Bld) 0.200 % 0.0-0.9 [facility] Comment on above: IG% - Immature Granu locytes (promyelocytes, myelocytes and metamyelocytes) > 1% indicates that a LEFT SHIFT is Present. International normalized rat io (INR) calculationOrdered By: Natali Schumacher on 11-16-2024 INR Coag (Bld) [Relative time] 0.9 {INR} [facility] MCV (mean corpuscular volume ) determinationOrdered By: Natali Schumacher on 11-16-2024 MCV (RBC) [Entitic vol] 89.4 fL 81-99 [facility] Mean corpuscular hemoglobin (MCH) determinationOrdered By: Natali Schumacher on 11-16-2024 MCH (RBC) [Entitic mass] 28.3 pg 27.0-32.0 [facility] Mean corpuscular hemoglobin concentration (MCHC) determinationOrdered By: Natali Schumacher on 11-16-2024 MCHC (RBC) [Mass/Vol] 31.6 g/dL Low 32-36 [facility] Mean platelet volume determi nationOrdered By: Natali Schumacher on 11-16-2024 Platelet mean volume (Bld) [Entitic vol] 12.7 fL High 6.2-12.0 [facility] Monocyte percentageOrdered B y: Natali Schumacher on 11-16-2024 Monocytes/100 WBC (Bld) 6.5 % 0-10 [facility] Neutrophil percentageOrdered By: Natali Schumacher on 11-16-2024 Neutrophils/100 WBC (Bld) 50.6 % 47-70 [facility] Nucleated red blood cell per centageOrdered By: Natali Schumacher on 11-16-2024 Nucleated RBC/100 WBC (Bld) [Ratio] 0 % 0-5 [facility] Partial Thromboplast Timeon 11-16-2024 aPTT Coag (Bld) [Time] 27.4 s Normal 24.1-36.[address] [facility] Comment on above: Performed By: #### L 100.0100, L500.2500, L300.4310, L300.3900 #### [facility] [address] [place], [address] Platelet countOrdered By: Chuyita Schumacher on 11-16-2024 Platelets (Bld) [#/Vol] 165 10*3/uL 150-450 [facility] Potassium measurement (mass/ volume)Ordered By: Natali Schumacher on 11-16-2024 Potassium (Unsp spec) [Mass/Vol] 4.4 mmol/L 3.3-5.1 [facility] Prothrombin Time w/INRon INR Coag (PPP) [Relative time] 0.9 {INR} Normal [facility] Comment on above: Performed By: #### L 100.0100, L500.2500, L300.4310, L300.3900 #### [facility] [address] [place], [address] PT Coag (PPP) [Time] 12.3 s Normal 11.7-14.9 [facility] Comment on above: Performed By: #### L 100.0100, L500.2500, L300.4310, L300.3900 #### [facility] [address] [place], [address] Prothrombin timeOrdered By: Natali Schumacher on 11-16-2024 PT Coag (PPP) [Time] 12.3 s 11.7-14.9 [facility] RBC Auto (Bld) [#/Vol]Ordere d By: Natali Schumacher on 11-16-2024 RBC (Bld) [#/Vol] 4.63 10*6/uL 4.2-5.4 [facility] Serum creatinine measurement (mass/volume)Ordered By: Natali Schumacher on 11-16-2024 Creatinine [Mass/Vol] 0.85 mg/dL 0.70-1.20 [facility] Serum glucose measurement (m ass/volume)Ordered By: Natali Schumacher on 11-16-2024 Glucose [Mass/Vol] 103 mg/dL High 70-99 [facility] Serum or plasma calcium opal urement (mass/volume)Ordered By: Natali Schumacher on 11-16-2024 Calcium [Mass/Vol] 8.7 mg/dL 7.6-11.0 [facility] Serum or plasma urea nitroge n measurement (mass/volume)Ordered By: Natali Schumacher on 11-16-2024 Urea nitrogen [Mass/Vol] 23 mg/dL High 4-19 [facility] Sodium levelOrdered By: Mitchel sonja Winsome on 11-16-2024 Sodium [Moles/Vol] 139 mmol/L 133-145 [facility] White blood cell (WBC) count Ordered By: Natali Winsome on 11-16-2024 WBC (Bld) [#/Vol] 4.3 10*3/uL Low 4.4-11.0 [facility] MR Brain WO and W contrast I Von 09-22-2024 IMPRESSION: 1. Subtle increased nodular enhancement along the left cerebellar tentorial leaflet when compared to remote exam 05/31/2017, which could reflect vascular prominence versus recurrent meningioma. 2. Otherwise stable postoperative findings of bilateral retrosigmoid mastoidectomies, right mesh cranioplasty and microvascular decompression of the right trigeminal nerve. Stable heterogeneous enhancement in the right ambient and prepontine cisterns closely associated with the right lateral keke and midbrain and cisternal trigeminal nerves, which could reflect postoperative changes and granulation from prior microvascular decompression. 3. No acute intracranial process. Curing Machine Operator: [facility] Transcribe Date/Time: Sep 22 2024 11:09A Dictated by : EDY RODARTE MD This examination was interpreted and the report reviewed and electronically signed by: EDY RODARTE MD on Sep 22 2024 11:31AM [facility] DIVISION OF RADIOLOGY * * *Final Report* * * DATE OF EXAM: Sep 22 2024 10:10AM [facility] 0295 - MRI BRAIN WO/W IVCON / PROCEDURE REASON: multiple diagnoses * * * * Physician Interpretation * * * * EXAMINATION: MRI BRAIN WO/W IVCON CLINICAL HISTORY: Dizziness, history of meningioma status post resection, trigeminal neuralgia TECHNIQUE: Cranial nerve brain MRI protocol without and with contrast including diffusion images. MQ: [id number] Contrast: 9 mL Elucirem IV COMPARISON: CT brain 10/27/2019, MRI brain 06/23/2019, 05/31/2017 RESULT: Acute Change: There is no evidence of restricted diffusion to suggest an acute infarct. Hemorrhage: No evidence of prior parenchymal hemorrhage within constraints of this exam. Mass Lesion/ Mass Effect: Again noted are postoperative findings of bilateral retrosigmoid mastoidectomies, right mesh cranioplasty and microvascular decompression of the right trigeminal nerve. Stable extra-axial CSF signal collections along the right superior cerebellar convexity and left anterior cerebellar convexity compared to the prior exams, likely postoperative. There is effacement of the left prepontine cistern with close approximation of the left keke to the dura at the level of the left Meckel's cave, which is unchanged compared to multiple prior exams and likely post operative. Heterogeneous enhancement in the right ambient and prepontine cisterns closely associated with the right lateral keke and midbrain and cisternal trigeminal nerves could reflect postoperative changes and granulation from prior microvascular decompression. The appearance is unchanged from prior MRI 06/23/2019. There is subtle increased nodular enhancement along the left cerebellar tentorial leaflet (series 10, image 41) when compared to remote exam 05/31/2017, which could reflect vascular prominence versus recurrent meningioma. There is no significant associated mass effect or adjacent parenchymal edema. There is otherwise no intracranial mass or other pathologic enhancement. Chronic Change: The white matter is within normal limits of signal intensity for age. Parenchyma: No significant volume loss for age. The brain parenchyma is otherwise within normal limits of signal intensity and morphology. Ventricles: Normal caliber and morphology. Skull Base: Hypothalamic and pituitary region are grossly normal. Craniocervical junction is normal. No significant marrow replacement process. Vasculature: Major intracranial arterial structures, and dural venous sinuses show typical flow void, suggesting patency by spin echo criteria. Other: The visualized paranasal sinuses and mastoid air cells are clear. The orbits and extracranial soft tissues are unremarkable. DIVISION OF RADIOLOGY Provider, [facility] - 09/22/2024 * * *Final Report* * * DATE OF EXAM: Sep 22 2024 10:10AM [facility] 0295 - MRI BRAIN WO/W IVCON / PROCEDURE REASON: multiple diagnoses * * * * Physician Interpretation * * * * EXAMINATION: MRI BRAIN WO/W IVCON CLINICAL HISTORY: Dizziness, history of meningioma status post resection, trigeminal neuralgia TECHNIQUE: Cranial nerve brain MRI protocol without and with contrast including diffusion images. MQ: [id number] Contrast: 9 mL Elucirem IV COMPARISON: CT brain 10/27/2019, MRI brain 06/23/2019, 05/31/2017 RESULT: Acute Change: There is no evidence of restricted diffusion to suggest an acute infarct. Hemorrhage: No evidence of prior parenchymal hemorrhage within constraints of this exam. Mass Lesion/ Mass Effect: Again noted are postoperative findings of bilateral retrosigmoid mastoidectomies, right mesh cranioplasty and microvascular decompression of the right trigeminal nerve. Stable extra-axial CSF signal collections along the right superior cerebellar convexity and left anterior cerebellar convexity compared to the prior exams, likely postoperative. There is effacement of the left prepontine cistern with close approximation of the left keke to the dura at the level of the left Meckel's cave, which is unchanged compared to multiple prior exams and likely post operative. Heterogeneous enhancement in the right ambient and prepontine cisterns closely associated with the right lateral keke and midbrain and cisternal trigeminal nerves could reflect postoperative changes and granulation from prior microvascular decompression. The appearance is unchanged from prior MRI 06/23/2019. There is subtle increased nodular enhancement along the left cerebellar tentorial leaflet (series 10, image 41) when compared to remote exam 05/31/2017, which could reflect vascular prominence versus recurrent meningioma. There is no significant associated mass effect or adjacent parenchymal edema. There is otherwise no intracranial mass or other pathologic enhancement. Chronic Change: The white matter is within normal limits of signal intensity for age. Parenchyma: No significant volume loss for age. The brain parenchyma is otherwise within normal limits of signal intensity and morphology. Ventricles: Normal caliber and morphology. Skull Base: Hypothalamic and pituitary region are grossly normal. Craniocervical junction is normal. No significant marrow replacement process. Vasculature: Major intracranial arterial structures, and dural venous sinuses show typical flow void, suggesting patency by spin echo criteria. Other: The visualized paranasal sinuses and mastoid air cells are clear. The orbits and extracranial soft tissues are unremarkable. IMPRESSION IMPRESSION: 1. Subtle increased nodular enhancement along the left cerebellar tentorial leaflet when compared to remote exam 05/31/2017, which could reflect vascular prominence versus recurrent meningioma. 2. Otherwise stable postoperative findings of bilateral retrosigmoid mastoidectomies, right mesh cranioplasty and microvascular decompression of the right trigeminal nerve. Stable heterogeneous enhancement in the right ambient and prepontine cisterns closely associated with the right lateral keke and midbrain and cisternal trigeminal nerves, which could reflect postoperative changes and granulation from prior microvascular decompression. 3. No acute intracranial process. Curing Machine Operator: GEMA Transcribe Date/Time: Sep 22 2024 11:09A Dictated by : EDY RODARTE MD This examination was interpreted and the report reviewed and electronically signed by: EDY RODARTE MD on Sep 22 2024 11:31AM EST [facility] Radiology Study observation (narrative) [facility] MR Brain WO and W contrast I VOrdered By: Ccf Provider on 09-22-2024 [facility] MRI BRAIN WO/W IVCONon 09-22 MRI BRAIN WO/W IVCON * * *Final Report* * * DATE OF EXAM: Sep 22 2024 10:10AM [facility] [id number] - MRI BRAIN WO/W IVCON / PROCEDURE REASON: multiple diagnoses * * * * Physician Interpretation * * * * EXAMINATION: MRI BRAIN WO/W IVCON CLINICAL HISTORY: Dizziness, history of meningioma status post resection, trigeminal neuralgia TECHNIQUE: Cranial nerve brain MRI protocol without and with contrast including diffusion images. MQ: [id number] Contrast: 9 mL Elucirem IV COMPARISON: CT brain 10/27/2019, MRI brain 06/23/2019, 05/31/2017 RESULT: Acute Change: There is no evidence of restricted diffusion to suggest an acute infarct. Hemorrhage: No evidence of prior parenchymal hemorrhage within constraints of this exam. Mass Lesion/ Mass Effect: Again noted are postoperative findings of bilateral retrosigmoid mastoidectomies, right mesh cranioplasty and microvascular decompression of the right trigeminal nerve. Stable extra-axial CSF signal collections along the right superior cerebellar convexity and left anterior cerebellar convexity compared to the prior exams, likely postoperative. There is effacement of the left prepontine cistern with close approximation of the left keke to the dura at the level of the left Meckel's cave, which is unchanged compared to multiple prior exams and likely post operative. Heterogeneous enhancement in the right ambient and prepontine cisterns closely associated with the right lateral keke and midbrain and cisternal trigeminal nerves could reflect postoperative changes and granulation from prior microvascular decompression. The appearance is unchanged from prior MRI 06/23/2019. There is subtle increased nodular enhancement along the left cerebellar tentorial leaflet (series 10, image 41) when compared to remote exam 05/31/2017, which could reflect vascular prominence versus recurrent meningioma. There is no significant associated mass effect or adjacent parenchymal edema. There is otherwise no intracranial mass or other pathologic enhancement. Chronic Change: The white matter is within normal limits of signal intensity for age. Parenchyma: No significant volume loss for age. The brain parenchyma is otherwise within normal limits of signal intensity and morphology. Ventricles: Normal caliber and morphology. Skull Base: Hypothalamic and pituitary region are grossly normal. Craniocervical junction is normal. No significant marrow replacement process. Vasculature: Major intracranial arterial structures, and dural venous sinuses show typical flow void, suggesting patency by spin echo criteria. Other: The visualized paranasal sinuses and mastoid air cells are clear. The orbits and extracranial soft tissues are unremarkable. IMPRESSION: 1. Subtle increased nodular enhancement along the left cerebellar tentorial leaflet when compared to remote exam 05/31/2017, which could reflect vascular prominence versus recurrent meningioma. 2. Otherwise stable postoperative findings of bilateral retrosigmoid mastoidectomies, right mesh cranioplasty and microvascular decompression of the right trigeminal nerve. Stable heterogeneous enhancement in the right ambient and prepontine cisterns closely associated with the right lateral keke and midbrain and cisternal trigeminal nerves, which could reflect postoperative changes and granulation from prior microvascular decompression. 3. No acute intracranial process. Curing Machine Operator: GEMA Transcribe Date/Time: Sep 22 2024 11:09A Dictated by : EDY RODARTE MD This examination was interpreted and the report reviewed and electronically signed by: EDY RODARTE MD on Sep 22 2024 11:31AM EST [id number] Normal [facility] Cardiovascular stress test r eportOrdered By: Tom Varela on 09-14-2024 Study report [facility] Cardi[facility] Services [address] [place] [address] MR#: [id number] Acct: [id number] Name: KATE OREILLY Rep #: [id number] : 1945 79 From: Tom Varela MD Primary Care: Dr. Kenn Beauchamp MD Sta tus: REG CLI Referring Dr: Natali Schumacher Sex : F C Stress Test Report Exercise myocardial perfusion stress test. 79-year-old lady with a history of chest pain Stress protocol: Resting EKG demonstrates normal sinus rhythm with a rate of 67 bpm resting bloodpressure is 112/60 mmHg. The patient exercised according to the regular Ilan protocol for a total duration of 1 minute and 49 seconds attaining a maximum heart rate of 144 bpm which was 102% of maximum predicted heart rate; the maximum workload was 4.6 metabolic equivalents. At rest there were no ST or T wave changes noted to suggest ischemia and at peak exercise upsloping ST changesonly were noted which did not meet the criteria for ischemia. No clinical angina was noted the test was terminated due to the target heart rate being achieved/fatigue. The peak blood pressure was 188/90 mmHg. Rate-pressure product was 15,700. Myocardial perfusion protocol. 11.7 mCi of technetium 99m sestamibi was injected at rest. The patient exercised according to regular Ilan protocol for total duration of 1 minute and49 seconds and at peak exercise 34.6 mCi of technetium 99m sestamibi was injected stress images were obtained stress and rest images were reconstructed in comparing the short axis vertical long and horizontal long axis. Gated images were also obtained. Perfusion SPECT analysis: Review of the stress images demonstrate normal uptake of tracer noted in all areas of the myocardium. The resting images similarly demonstrate normal uptakeof tracer noted in all areas of the myocardium. No areas of reversibility are noted to suggest ischemia no previous infarct was noted. Gated SPECT analysis: The gated ejection fraction is 80% plus. Conclusion: Normal exercise myocardial perfusion stress test at a low workload Preserved ejection fraction. 09/14/24 1449 Date _ Tom Varela MD CC: Dr. Kenn Beauchamp MD; LORA Swan ~ Date Dictated: 09/14/24 143 Date Transcribed: 09/14/241434 Curing Machine Operator: CO Signed [facility] Work Phone: Stress Reporton 09-14-2024 Stress Report [facility] Cardiovascular Services [address] [place] [address] MR#: [id number] Acct: [id number] Name: KATE OREILLY Rep #: [id number] : 1945 79 From: Tom Varela MD Primary Care: Dr. Kenn Beauchamp MD Status: REG CLI Referring Dr: Natali Schumacher Sex: F C Stress Test Report Exercise myocardial perfusion stress test. 79-year-old lady with a history of chest pain Stress protocol: Resting EKG demonstrates normal sinus rhythm with a rate of 67 bpm resting blood pressure is 112/60 mmHg. The patient exercised according to the regular Ilan protocol for a total duration of 1 minute and 49 seconds attaining a maximum heart rate of 144 bpm which was 102% of maximum predicted heart rate; the maximum workload was 4.6 metabolic equivalents. At rest there were no ST or T wave changes noted to suggest ischemia and at peak exercise upsloping ST changes only were noted which did not meet the criteria for ischemia. No clinical angina was noted the test was terminated due to the target heart rate being achieved/fatigue. The peak blood pressure was 188/90 mmHg. Rate- pressure product was 15,700. Myocardial perfusion protocol. 11.7 mCi of technetium 99m sestamibi was injected at rest. The patient exercised according to regular Ilan protocol for total duration of 1 minute and 49 seconds and at peak exercise 34.6 mCi of technetium 99m sestamibi was injected stress images were obtained stress and rest images were reconstructed in comparing the short axis vertical long and horizontal long axis. Gated images were also obtained. Perfusion SPECT analysis: Review of the stress images demonstrate normal uptake of tracer noted in all areas of the myocardium. The resting images similarly demonstrate normal uptake of tracer noted in all areas of the myocardium. No areas of reversibility are noted to suggest ischemia no previous infarct was noted. Gated SPECT analysis: The gated ejection fraction is 80% plus. Conclusion: Normal exercise myocardial perfusion stress test at a low workload Preserved ejection fraction. 09/14/24 1449 Date Tom Varela MD CC: Dr. Kenn Beauchamp MD; LORA Swan Date Dictated: 09/14/241434 Date Transcribed: 09/14/241434 Curing Machine Operator: CO Signed El[facility] ROBERTOOVyazmin 09-12-2024 [facility] Office Visit (FAMPWS ) -- KATE OREILLY ([id number]) 1945 F Date Time Provider Department 09/12/24 8:40 AM KENN BEAUCHAMP During your visit today, we recorded the following information about you: Pulse Respiration Blood pressure Weight 68/minute 18/minute 128/72 90.7 kg Kenn Beauchamp MD 09/12/2024 11:51 AM Signed Chief Complaint Patient presents with: F/U 6 Month HPI Kate Oreilly is a 79 year old female who presents here today for a 6 mo f/u. Pt here today for her routine visit. Recently seen by Bessy on 09/01/24 for an acute visit due to left sided sciatica. Also seen on 08/10/24 for chest tightness. GI/Uro - Denies any stomach, bowel, or urinary issues. Uses Senna prn (rare) for constipation but bowels stable with eating salads. Thyroid - On current regimen of Synthroid 100 mcg daily. Denies any missed dosages. Had had concern about Michoacano's due to FHx and weight gain in the past. Had meningioma brain tumor removed in 2008. She states she hasn't had anyone following that since. She is limited on how far she can drive. Unsure where a local neurosurgeon is. Reports she's not had any imaging done to monitor this since her last surgery for trigeminal neuralgia, wondering if this needs completed to see if this causing dizziness. She has dizziness and balance problems. Reports she's been having increased dizziness, unable to pin point the cause. Occurs later in the am. Edema - B/L leg edema, stable with use of Lasix 40 mg 1 pill once daily, supposed to use bid. Uses Compression stockings some, not much in the summer. Elevation when feet/legs burn. Pain - Chronic pain due to trigeminal neuralgia and chronic back pain. Taking Lyrica 200 mg 1 cap daily; recently cut down from twice a day. PCP agreed to start prescribing her Lyrica at last OV. Was following with Pain Management Dr. Yadav but declined any further follow ups as she was not getting any relief with all alternatives tried. Injections made her feel worse. Lipid/Glucose - Currently on no medications. Tries to watch diet. Reports exercise has been iffy. Reports she had an asthma flare when she did too much. HTN - Following with [facility], has upcoming stress test scheduled for this . Checking BP at home occasionally, reports readings aren't doing too bad. Currently taking Losartan 100 mg daily. Denies any chest pains, but gets tightness due to her asthma issues. Has chronic SOB and issues with dizziness and balance. Feels the SOB would improve if she could lose some weight. Asthma - Had flare up recently due to doing too much activity. Is on Singulair 10 mg once daily and Rescue Inhaler prn. SREEKANTH - Currently taking Singulair 10 mg daily. Follows with Freedmo Osman at [facility] for SOB/SREEKANTH. Wears CPAP nightly, sleeps well on average gets 8 hours of good sleep. Feels her SOB would improve if she could lose some weight. Had recent PFT testing done through his office, has not heard about results yet. Treated with Tizanidine for left sided sciatica. Reports she took it at bedtime and did okay with medication. Took dosage during the day and was doing light stretching and sat up and had vision changes and went black. Has not taken since. Wants to know if okay to continue or should be added to allergies. HM - Has Adv Dir/Living Will scanned into chart. Past medical history, appointments, medications, allergies reviewed. Previous Medical History PAST MEDICAL HISTORY Diagnosis Date Diverticulosis of colon (without mention of hemorrhage) Family history of malignant neoplasm of gastrointestinal tract Head injury 09/30 trip fall HTN (hypertension) Hypothyroidism Internal hemorrhoids without mention of complication SREEKANTH (obstructive sleep apnea) Other and unspecified hyperlipidemia Pneumonia 07/2011 Snoring Trigeminal neuralgia Previous Surgical History PAST SURGICAL HISTORY Procedure Laterality Date BIOPSY BREAST OPEN INCISIONAL Left LATE Bx of breast, incisional COLONOSCOPY FLX DX W/COLLJ SPEC WHEN PFRMD 03/12/2008 COLONOSCOPY FLX DX W/COLLJ SPEC WHEN PFRMD 02/05/2014 Colonoscopy COLONOSCOPY FLX DX W/COLLJ SPEC WHEN PFRMD 05/20/2015 Colonoscopy COLONOSCOPY FLX DX W/COLLJ SPEC WHEN PFRMD 01/23/2019 Colonoscopy PAST SURGICAL HISTORY OF 09/03/2010 CRANIECTOMY EXCISON TUMOR, INFRATENTORIAL OR POST FOSSA, MENIGIOMA PAST SURGICAL HISTORY OF 05/06/2011 right MVD fro [place] PAST SURGICAL HISTORY OF 04/2019 Trigeminal neuralgia surgery. Brain leak in August 2019 REMOVAL GALLBLADDER N/A 08/30/2022 TONSILLECTOMY PRIMARY/SECONDARY Tonsillectomy XCAPSL CTRC RMVL INSJ IO LENS PROSTH W/O ECP 2012 Cataract Extraction with PC IOL XCAPSL CTRC RMVL INSJ IO LENS PROSTH W/O ECP 2012 Cataract Extraction with PC IOL Family History FAMILY HISTORY Problem Relation Age of (more content not included)... Normal [facility] Comprehensive metabolic 2000 panelon 09-04-2024 Albumin [Mass/Vol] 4.1 g/dL Normal 3.9-4.9 [facility] Comment on above: Order Comment: Speci men Type: BLOOD SPECIMENOrdering Facility: [facility] Address: [address] [place] [address] Performed By: #### 2 4331-1, 51300-2, 6-3 ####[facility] LABCLIA [id number] [place] [address] [place] ALP [Catalytic activity/Vol] 65 U/L Normal 34-123 [facility] Comment on above: Order Comment: Speci men Type: BLOOD SPECIMENOrdering Facility: [facility] Address: [address] [place] [address] Performed By: #### 2 4331-1, 16848-4, 6-3 ####[facility] LABCLIA [id number] [place] [address] [place] ALT [Catalytic activity/Vol] 15 U/L Normal 7-38 [facility] Comment on above: Order Comment: Speci men Type: BLOOD SPECIMENOrdering Facility: [facility] Address: [address] [place] [address] Performed By: #### 2 4331-1, 06407-8, 6-3 ####[facility] LABCLIA [id number] [address] [address] [place] Anion gap [Moles/Vol] 15 mmol/L Normal 8-15 [facility] Comment on above: Order Comment: Speci men Type: BLOOD SPECIMENOrdering Facility: [facility] Address: [address] [place] [address] Performed By: #### 2 4331-1, , 3 ####[facility] LABCLIA [id number] [facility] [address] [address] [place] AST [Catalytic activity/Vol] 16 U/L Normal 13-35 [facility] Comment on above: Order Comment: Speci men Type: BLOOD SPECIMENOrdering Facility: [facility] Address: [address] [place], [place] [address] Performed By: #### 2 4331-1, , 3015-08 ####[facility] LABCLIA [id number] [address] [address] [place] Bilirubin [Mass/Vol] 0.3 mg/dL Normal 0.2-1.3 [facility] Comment on above: Order Comment: Speci men Type: BLOOD SPECIMENOrdering Facility: [facility] Address: [address] [place], [place] [address] Performed By: #### 2 4331-1, , 3015-08 ####[facility] LABCLIA [id number] [address] [address] [place] Calcium [Mass/Vol] 9.0 mg/dL Normal 8.5-10.2 [facility] Comment on above: Order Comment: Speci men Type: BLOOD SPECIMENOrdering Facility: [facility] Address: [address] [place] [address] Performed By: #### 2 4331-1, , 3015-08 ####[facility] LABCLIA [id number] [facility] [address] [address] [place] Chloride [Moles/Vol] 108 mmol/L High 98-107 [facility] Comment on above: Order Comment: Speci men Type: BLOOD SPECIMENOrdering Facility: [facility] Address: [address] [place] [address] Performed By: #### 2 4331-1, 75916-3, 3015-3 ####[facility] LABIA [id number] [address] [address] [place] CO2 [Moles/Vol] 22 mmol/L Normal 22-30 [facility] Comment on above: Order Comment: Speci men Type: BLOOD SPECIMENOrdering Facility: [facility] Address: [address] [place], [place] [address] Performed By: #### 2 4331-1, 01585-4, 3015-3 ####[facility] LABIA [id number] [address] [address] [place] Creatinine [Mass/Vol] 1.08 mg/dL High 0.58-0.96 [facility] Comment on above: Order Comment: Speci men Type: BLOOD SPECIMENOrdering Facility: [facility] Address: [address] [place] [address] Performed By: #### 2 4331-1, 05550-3, 3 ####[facility] LABIA [id number] [address] [address] [place] Creatinine and Glomerular filtration rate.predicted panel (S/P/Bld) 52 mL/min/1.73m??? Low >=60 [facility] Comment on above: Order Comment: Speci men Type: BLOOD SPECIMENOrdering Facility: [facility] Address: [address] [place], [place] [address] Result Comment: Ros mated Glomerular Filtration Rate (eGFR) is calculated using the 2020 CKD-EPI creatinine equation. This equation utilizes serum creatinine, sex, and age as parameters. The creatinine assay has traceable calibration to isotope dilution-mass spectrometry. Refer to KDIGO guidelines for clinical interpretation. In patients with unstable renal function, e.g. those with acute kidney injury, the eGFR may not accurately reflect actual GFR. Performed By: #### 2 4331-1, 33265-5, 6-3 ####[facility] LABIA [id number] [address] [address] [place] Glucose [Mass/Vol] 82 mg/dL Normal 74-99 [facility] Comment on above: Order Comment: Speci men Type: BLOOD SPECIMENOrdering Facility: [facility] Address: [address] [place] [address] Result Comment: The [place] Diabetes Association (ADA) provides guidance for cutoff values for fasting glucose and random glucose. The ADA defines fasting as no caloric intake for at least 8 hours. Fasting plasma glucose results between 100 to 125 mg/dL indicate increased risk for diabetes (prediabetes). Fasting plasma glucose results greater than or equal to 126 mg/dL meet the criteria for diagnosis of diabetes. In the absence of unequivocal hyperglycemia, results should be confirmed by repeat testing. In a patient with classic symptoms of hyperglycemia or hyperglycemic crisis, random plasma glucose results greater than or equal to 200 mg/dL meet the criteria for diagnosis of diabetes. Reference: Standards of Medical Care in Diabetes 2016, [place] Diabetes Association. Diabetes Care. 2016.39(Suppl 1). Performed By: #### 2 4331-1, 83024-3, 6-3 ####[facility] LABIA [id number] [place] [id number] [place] Potassium [Moles/Vol] 3.7 mmol/L Normal 3.7-5.1 [facility] Comment on above: Order Comment: Speci men Type: BLOOD SPECIMENOrdering Facility: [facility] Address: [address] [place] [id number] Performed By: #### 2 4331-1, 63554-6, 6-3 ####[facility] LABIA [id number] [address] [address] [place] Protein [Mass/Vol] 6.4 g/dL Normal 6.3-8.0 [facility] Comment on above: Order Comment: Speci men Type: BLOOD SPECIMENOrdering Facility: [facility] Address: [address] [place], [place] [address] Performed By: #### 2 4331-1, 68348-6, 3016-3 ####[facility] LABCLIA [id number] [address] [address] [place] Sodium [Moles/Vol] 145 mmol/L High 136-144 [facility] Comment on above: Order Comment: Speci men Type: BLOOD SPECIMENOrdering Facility: [facility] Address: [address] [place], [place] [address] Performed By: #### 2 4331-1, 03425-3, 3016-3 ####[facility] LABIA [id number] [address] [address] [place] Urea nitrogen [Mass/Vol] 27 mg/dL High 7-21 [facility] Comment on above: Order Comment: Speci men Type: BLOOD SPECIMENOrdering Facility: [facility] Address: [address] [place] [address] Performed By: #### 2 4331-1, 43104-1, 3016-3 ####[facility] LABIA [id number] [address] [address] [place] HbA1c (Bld)on 09-04-2024 Average glucose Estimated from glycated hemoglobin (Bld) [Mass/Vol] 117 mg/dL Normal [facility] Comment on above: Order Comment: Speci men Type: BLOOD SPECIMENOrdering Facility: [facility] Address: [address] [place] [address] Result Comment: eAG: (Estimated average glucose) is a calculated value from HgbA1c and is litigation claim representative of the average blood glucose level in the last 2-3 month period. Performed By: #### 5 5454-3 ####[facility] [id number] [address] [address] [place] HbA1c (Bld) [Mass fraction] 5.7 % High 4.3-5.6 [facility] Comment on above: Order Comment: Speci men Type: BLOOD SPECIMENOrdering Facility: [facility] Address: [address] [place] [address] Result Comment: Amer ican Diabetes Association guidelines indicate that patients with HgbA1c in the range 5.7-6.4% are at increased risk for development of diabetes, and intervention by lifestyle modification may be beneficial. HgbA1c greater or equal to 6.5% is considered diagnostic of diabetes. Performed By: #### 5 5454-3 ####[facility] LABCLIA [id number] [facility] [address] [place] [address] [place] Lipid 1996 panelon 5 Cholesterol [Mass/Vol] 201 mg/dL High <200 [facility] Comment on above: Order Comment: Matii men Type: BLOOD SPECIMENOrdering Facility: [facility] Address: [address] [place] [address] Result Comment: <200 mg/dL, Desirable 200-239 mg/dL, Borderline high >239 mg/dL, High Performed By: #### 2 4331-1, 55942-8, 3016-3 ####[facility] LABCLIA [id number] [facility] [address] [place] [address] [place] Cholesterol in HDL [Mass/Vol] 70 mg/dL Normal >39 [facility] Comment on above: Order Comment: Darnell hale Type: BLOOD SPECIMENOrdering Facility: [facility] Address: [address] [place] [address] Result Comment: 40-5 9 mg/dL, Acceptable >59 mg/dL, High: Negative risk factor for coronary heart disease <40 mg/dL, Low: Positive risk factor for coronary heart disease Performed By: #### 2 4331-1, 69683-8, 3016-3 ####[facility] LABCLIA [id number] [facility] [address] [place] [address] [place] Cholesterol in LDL [Mass/Vol] 117 mg/dL High <100 [facility] Comment on above: Order Comment: Matii men Type: BLOOD SPECIMENOrdering Facility: [facility] Address: [address] [place] [address] Result Comment: <100 mg/dL, Optimal 100-129 mg/dL, Near optimal/above optimal 130-159 mg/dL, Borderline high 160-189 mg/dL, High >189 mg/dL, Very high Secondary prevention optimal LDL Cholesterol levels are recommended to be < 70 mg/dL Performed By: #### 2 4331-1, 11509-8, 3015-3 ####[facility] LABCLIA [id number] [facility] [id number], [place] [address] [place] Cholesterol in LDL/Cholesterol in HDL [Mass ratio] 1.67 {ratio} Normal <2.54 [facility] Comment on above: Order Comment: Speci men Type: BLOOD SPECIMENOrdering Facility: [facility] Address: [address] [place] [address] Result Comment: Refe rence: 1. National Cholesterol Education Program ATP III Guideline At-A-Glance Quick Desk Reference: National Heart, Lung, and Blood [place]. National Institutes of Health. 2001: NIH Publication No. 01-3305. 2. An International Atherosclerosis Society position paper: global recommendations for the management of dyslipidemia: executive summary, Atherosclerosis. 2014: 232(2):410-413. Performed By: #### 2 4331-1, 21953-0, 3 ####[facility] LABIA [id number] [address] [place] [address] [place] Cholesterol in VLDL [Mass/Vol] 14 mg/dL Normal <30 [facility] Comment on above: Order Comment: Speci men Type: BLOOD SPECIMENOrdering Facility: [facility] Address: [address] [place] [address] Performed By: #### 2 4331-1, 15008-6, 3015-3 ####[facility] LABCLIA [id number] [facility] [id number] [address] [place] Cholesterol non HDL [Mass/Vol] 131 mg/dL High <130 [facility] Comment on above: Order Comment: Speci men Type: BLOOD SPECIMENOrdering Facility: [facility] Address: [address] [place] [address] Result Comment: <130 mg/dL, Optimal 130-159 mg/dL, Near optimal/above optimal 160-189 mg/dL, Borderline high 190-219 mg/dL, High >219 mg/dL, Very high Secondary prevention optimal non HDL Cholesterol levels are recommended to be <100 mg/dL Performed By: #### 2 4331-1, 39279-6, 6-3 ####[facility] LABCLIA [id number] [facility] [place] [address] [place] Cholesterol.total/Chol esterol in HDL [Mass ratio] 2.87 {ratio} Normal <5.10 [facility] Comment on above: Order Comment: Speci men Type: BLOOD SPECIMENOrdering Facility: [facility] Address: [address] [place] [address] Performed By: #### 2 4331-1, 43653-0, 3 ####[facility] LABCLIA [id number] [place] [address] [place] FASTING TIME 11 hrs Normal [facility] Comment on above: Order Comment: Speci men Type: BLOOD SPECIMENOrdering Facility: [facility] Address: [address] [place] [address] Performed By: #### 2 4331-1, , 3 ####[facility] LABCLIA [id number] [facility] [place] [address] [place] Triglyceride [Mass/Vol] 72 mg/dL Normal <150 [facility] Comment on above: Order Comment: Speci men Type: BLOOD SPECIMENOrdering Facility: [facility] Address: [address] [place] [address] Result Comment: <150 mg/dL, Normal 150-199 mg/dL, Borderline high 200-499 mg/dL, High >499 mg/dL, Very high Performed By: #### 2 4331-1, 33216-7, 3015-3 ####[facility] LABCLIA [id number] [place] [id number] [place] TSH SerPl-aCncon 09-04-2024 TSH Qn 1.990 m[IU]/L Normal 0.270-4.200 [facility] Comment on above: Order Comment: Speci men Type: BLOOD SPECIMENOrdering Facility: [facility] Address: [address] [place] [address] Performed By: #### 2 4331-1, 27102-7, 3016-3 ####[facility] LABCLIA [id number] [place] [id number] [facility] [place] CNOVon 09-01-2024 CNOV Office Visit (MIN ) -- DENILSONKATE F ([id number]) 1945 F Date Time Provider Department 09/01/24 10:00 AM BESSY YATES During your visit today, we recorded the following information about you: Pulse Respiration Blood pressure Weight 71/minute 16/minute 112/68 90.1 kg Bessy Yates APRN.VALUE STREAM MANAGER 09/01/2024 10:37 AM Signed This is a 79 year old female who presents today with: Patient presents with: Acute Visit: Left leg sciatica HISTORY OF PRESENT ILLNESS: Kate Newman Denilson is a 79 year old female. Patient presents with: Acute Visit: Left leg sciatica Sciatica back pain. Started Wednesday night and has been waxing and waning since. Radiating down the left leg. She reports that she was having pain before getting out of bed this morning. Has taken ibuprofen. Pain is rated 5/10 in her glutes, 3/10 in her leg. Has had shooting pain from her hip to her ankle. No difficulty sleeping. Denies loss of bowel or bladder/saddle anesthesia PAST MEDICAL HISTORY: PAST MEDICAL HISTORY Diagnosis Date Diverticulosis of colon (without mention of hemorrhage) Family history of malignant neoplasm of gastrointestinal tract Head injury 09/30 trip fall HTN (hypertension) Hypothyroidism Internal hemorrhoids without mention of complication SREEKANTH (obstructive sleep apnea) Other and unspecified hyperlipidemia Pneumonia 07/2011 Snoring Trigeminal neuralgia PAST SURGICAL HISTORY Procedure Laterality Date BIOPSY BREAST OPEN INCISIONAL Left LATE Bx of breast, incisional COLONOSCOPY FLX DX W/COLLJ SPEC WHEN PFRMD 03/12/2008 COLONOSCOPY FLX DX W/COLLJ SPEC WHEN PFRMD 02/05/2014 Colonoscopy COLONOSCOPY FLX DX W/COLLJ SPEC WHEN PFRMD 05/20/2015 Colonoscopy COLONOSCOPY FLX DX W/COLLJ SPEC WHEN PFRMD 01/23/2019 Colonoscopy PAST SURGICAL HISTORY OF 09/03/2010 CRANIECTOMY EXCISON TUMOR, INFRATENTORIAL OR POST FOSSA, MENIGIOMA PAST SURGICAL HISTORY OF 05/06/2011 right MVD fro [place] PAST SURGICAL HISTORY OF 04/2019 Trigeminal neuralgia surgery. Brain leak in August 2019 REMOVAL GALLBLADDER N/A 08/30/2022 TONSILLECTOMY PRIMARY/SECONDARY Tonsillectomy XCAPSL CTRC RMVL INSJ IO LENS PROSTH W/O ECP 2012 Cataract Extraction with PC IOL XCAPSL CTRC RMVL INSJ IO LENS PROSTH W/O ECP 2012 Cataract Extraction with PC IOL ALLERGIES Amoxicillin, Carbamazepine, Codeine, Percocet [Oxycodone-Acetaminophen], Tegretol [Carbamazepine Analogues], Tramadol, Vicodin [Hydrocodone-Acetaminophen ], Vioxx [Rofecoxib], Demerol [Meperidine Hcl], Neurontin [Gabapentin], Topamax [Topiramate], and Fentanyl MEDICATIONS Current Outpatient Medications Medication Sig albuterol HFA (PROVENTIL HFA, VENTOLIN HFA) 90 mcg/actuation inhaler Inhale 1 Puff as instructed every 6 hours as needed for wheezing/shortness of breath. SPACE CHAMBER 1 Device one time only. Pregabalin (LYRICA) 200 mg capsule Take 1 capsule by mouth once daily for 180 days. losartan (COZAAR) 100 mg tablet Take 1 tablet by mouth once daily. levothyroxine (SYNTHROID) 100 mcg tablet take 1 tablet by mouth once daily on an empty stomach furosemide (LASIX) 40 mg tablet Take 1 tablet by mouth once daily. montelukast (SINGULAIR) 10 mg tablet Take 1 tablet by mouth daily at bedtime. Sennosides 25 mg tab Take 1 tablet by mouth daily at bedtime. No current facility-administered medications for this visit. FAMILY HISTORY Problem Relation Age of Onset Alzheimer's Disease Mother Heart Mother pacemaker Stroke Mother Heart Father VALVE REPLACEMENT,PACE MAKER Heart Sister Heart Brother Heart Brother Colon Cancer Sister Breast Cancer Sister Breast Cancer Daughter Social History Tobacco Use Smoking status: Never Smokeless tobacco: Never Vaping Use Vaping status: Never Used Substance Use Topics Alcohol use: No Drug use: No REVIEW OF SYSTEMS GENERAL: No weight loss, malaise or fevers/chills HEENT: Negative for frequent or significant headaches, No changes in hearing or vision. NECK: Negative for lumps, goiter, pain and significant neck swelling RESPIRATORY: Negative for cough, hemoptysis, wheezing, dyspnea or shortness of breath CARDIOVASCULAR: Negative for chest pain, leg swelling, orthopnea, or palpitations GI: No nausea, vomiting, or diarrhea/constipation. No hematochezia/melena. No heartburn or reflux symptoms. : No history of dysuria, frequency or incontinence MUSCULOSKELETAL: + Back pain SKIN: Negative for lesions, rash, and itching ENDOCRINE: Negative for cold or heat intolerance, polyuria, polydipsia and goiter NEURO: + numbness/tingling into the left leg MOOD: Negative for depression, anxiety, or suicidal ideation. EXAM: BP 112/68 Pulse 71 Resp 16 Wt 90.1 kg (198 lb 10.2 oz) LMP (LMP Unknown) SpO2 98% BMI 31.11 kg/m? PHYSICAL EXAM: General Appearance: Well appearing, (more content not included)... Normal [facility] XR LUMBAR 3V AP/LAT/L5-S1on 09-01-2024 XR LUMBAR 3V AP/LAT/L5-S1 * * *Final Report* * * DATE OF EXAM: Sep 01 2024 10:39AM WOX [id number] - XR LUMBAR 3V AP/LAT/L5-S1 / PROCEDURE REASON: Left sided sciatica * * * * Physician Interpretation * * * * PROCEDURE: Lumbar spine INDICATION: Left sided sciatica . TECHNIQUE: XR LUMBAR 3V AP/LAT/L5-S1 COMPARISON: 09/15/2010 FINDINGS: Normal alignment without fracture or subluxation. Mild degenerative disc disease at all levels and lower lumbar facet arthrosis, showing mild interval progression. No pars defect. Sacroiliac joints are unremarkable. IMPRESSION: Mild spondylosis Curing Machine Operator: GEMA Transcribe Date/Time: Sep 06 2024 9:36A Dictated by : JOON BECKHAM MD This examination was interpreted and the report reviewed and electronically signed by: JOON BECKHAM MD on Sep 06 2024 9:45AM EST [id number] Normal [facility] Chest without Contraston Chest without Contrast [facility] Imaging Services [address], [place] [address] Chest without Contrast MR#: [id number] Acct: [id number] Name: KATE OREILLY Rep #: [id number] : 1945 F 79 From: Saman Tenorio PCP: Dr. Kenn Beauchamp MD Status: REG CLI Study: Chest without Contrast Date of Exam: 08/31/24 Exam# [id number] Ordering Dr: Tyler Singh MD PROCEDURE: CHEST WITHOUT CONTRAST REASON FOR EXAM: HYPOXEMIA TECHNIQUE: Chest CT without contrast. COMPARISON: 11/2020 FINDINGS: 1.1 cm right lower lobe calcification. This is unchanged. 6 mm right lower lobe calcification detected. Calcified hilar and mediastinal lymph nodes compatible with old healed granulomas disease Bronchial thickening. No new or growing nodules. No localizing infiltrate. Patchy bibasilar atelectasis Heart size is enlarged. No evidence of ascending aortic aneurysm No pneumothorax or pleural effusions Stable thyroid gland. Tortuous vascularity suggests systemic hypertension. Demineralized bones CT/Chest without Contrast IMPRESSION: Stable examination. Findings of old healed granulomatous disease. Bronchial thickening. Heart size is enlarged. No localizing infiltrate One or more dose reduction techniques were used (e.g., Automated exposure control, adjustment of the mA and/or kV according to patient size, use of iterative reconstruction technique). Reading Location: [id number] CC: Dr. Kenn Beauchamp MD; Dr. Tyler Singh MD Curing Machine Operator: Signed Normal [facility] 12 Lead EKG performed by [facility] on 08-18-2024 12 Lead EKG performed by [facility] [address] [place] [address] 12 Lead EKG performed by [facility] 08/18/24710 MR#: [id number] Acct: [id number] Name: KATE OREILLY Rep #: [id number] : 1945 79 From: Natali Bull Attending Dr: LORA Swan Status: DEP AMB Ordering Dr: Natali Schumacher Date: 07/23 02/12 Location: [facility] Sex: F C Admitted: BMS/12 Lead EKG performed by [facility] ECG Report Interpretation Sinus Rhythm - Negative precordial T-waves. WITHIN NORMAL LIMITSElectronically signed on 08/21/2024 at 14:01 by Tom Varela Software Version [id number] 08/21/24 1406 Date Natali PAULINO CC: Dr. Kenn Beauchamp MD Date Dictated: 08/18/24710 Date Transcribed: 08/18/24710 Curing Machine Operator: ELISE Signed Normal [facility] Cardiology Visit Reporton Cardiology Visit Report [facility] [address] [place] [address] OFFICE VISIT Date of Service: 08/18/24 MR#: [id number] Acct: [id number] Name: KATE OREILLY Rep #: [id number] : 1945 Provider: LORA Briones Age/Sex: 79/F Location: [facility] Status: Signed HPI HPI History of Present Illness Details: Kate Oreilly is a 79-year-old lady who presents today for an urgent visit for increase in SOB and CP. She was last in the office in 2022. She has no previous cardiac history who we have seen for dyspnea. Echocardiogram in 2020 demonstrated an ejection fraction of 65%, mild mitral valve insufficiency, RVSP 40 mmHg. Stress test in 2020 was negative for ischemia. She did undergo a diagnostic heart catheterization in 2021, this demonstrated normal coronary arteries with mild pulmonary hypertension. Echocardiogram in 2024 demonstrated a preserved ejection fraction of 65% with mildly dilated RV, RVSP was 55 mmHg. Pt notes that last week she was riding a stationary bike for 3 minutes. She had CP, tightness, and could barely make it upstairs to rest. Her BP was elevated for several hours. She notes that she does get CP/tightness with walking steps. This is newer for her over the last month. She was in to see her PCP and PCP requested she come in to see us. EKG today demonstrates SR with negative precordial T waves with a HR of 73. Intake Vital Signs 12/10/22 08:40 08/18/24 07:13 Height 5 ft 7 in 5 ft 7 in Weight: 196 lb BMI 30.7 BP 129/82 H Blood Pressure Location Lt brachial Position Sitting Respiration 18 Pulse 85 Intake Visit Reasons: Chest Tightness/SOB/Mitral Annular Calcification Rn Ccu Required: No Is patient in pain?: No Allergies amoxicillin Allergy (Verified 08/18/24 07:57) rash carbamazepine Allergy (Verified 08/18/24 07:57) rash rofecoxib (From Vioxx) Allergy (Verified 08/18/24 07:57) rash codeine Adverse Reaction (Verified 08/18/24 07:57) vomiting fentanyl Adverse Reaction (Verified 08/18/24 07:57) Vomiting gabapentin (From Neurontin) Adverse Reaction (Verified 08/18/24 07:57) intolerance hydrocodone (From Vicodin) Adverse Reaction (Verified 08/18/24 07:57) Vomiting meperidine (From Demerol) Adverse Reaction (Verified 08/18/24 07:57) Vomiting oxycodone (From Percocet) Adverse Reaction (Verified 08/18/24 07:57) Vomiting topiramate (From Topamax) Adverse Reaction (Verified 08/18/24 07:57) intolerance tramadol Adverse Reaction (Verified 08/18/24 07:57) Vomiting Medications ???Medication ???Instructions ???Recorded ???Confirmed ???Type montelukast 10 mg tablet 10 mg PO QHS 08/13/21 08/18/24 His tory (Singulair) furosemide 40 mg tablet (Lasix) 40 mg PO BID 11/11/21 08/18/24 His tory levothyroxine 100 mcg tablet 100 mcg PO DAILY 11/11/21 08/18/24 History losartan 100 mg tablet 100 mg PO DAILY #90 tabs 03/30/22 08/18/24 Rx albuterol sulfate 90 mcg/actuation 2 puff inhalation Q6H PRN 08/18/24 History aerosol inhaler gabapentin 300 mg capsule 300 mg PO QDAY 08/18/24 08/18/24 H istory Ejection fraction %: 65 Have you fallen in the past year?: Yes PFSH Medical History Secondary pulmonary arterial hypertension Obesity Trigeminal neuralgia Meningioma, cerebral Hypothyroidism Obstructive sleep apnea Essential hypertension Hyperlipidemia Diverticulosis Surgical History Status post cholecystectomy History of right and left heart catheterization (09/01/21) [place] (trigeminal neuralgia) (2019) History of colonoscopy History of cataract surgery History of craniotomy (2010) Family History Mother CVA (cerebral vascular accident) Heart disease PPM Father Heart disease valve replacement, PPM Brother Heart disease Brother Heart disease Sister Heart disease Sister Colon cancer Sister Breast cancer Daughter Breast cancer Social History Smoking Status: Never smoker alcohol intake: never substance use type: does not use caffeine: Yes Type: coffee Number of servings: 4 ROS Const Const: Positive for fatigue, weakness and headache(s); Negative for frequent falls Eyes Eyes: Negative for blurry vision ENT ENT: Positive for headache(s) and dizziness; Negative for Nosebleed/epistaxis Cardio Chest Pain: Yes (tightness) Palpitations: Yes Edema: None Muscle aches with walking: None Resp Respiratory: Positive for SOB with activity and SOB at rest; Negative for SOB orthopnea SOB lying down GI GI: Negative nausea, vomiting, heartburn, bright, red bloo (more content not included)... Normal [facility] CNOVon 08-10-2024 CNOV Office Visit (FAMPWS ) -- KATE OREILLY ([id number]) 1945 F Date Time Provider Department 08/10/24 9:00 AM [facility] your visit today, we recorded the following information about you: Pulse Respiration Blood pressure Weight 71/minute 16/minute 136/68 90.5 kg Bessy Yates APRN.VALUE STREAM MANAGER 08/10/2024 3:27 PM Signed This is a 79 year old female who presents today with: Patient presents with: Follow Up: SOB,elevated BP HISTORY OF PRESENT ILLNESS: Kate Oreilly is a 79 year old female. Patient presents with: Follow Up: SOB,elevated BP Here in the office for follow up, following with pulmonology and has been having on going SOB and had elevated BP at last visit. Had an episode at home where she felt dizzy when having SOB. Has not had any other reoccurrences. SOB: Refers that Dr. Louis ordered additional testing. Will be completing repeat in house sleep study at [facility] this up coming Wednesday. Still having daily SOB with activities, will need to rest. No night time wakening's with cough or SOB. No wheezing. Using albuterol inhaler as needed. Post nasal drip which has been on going. Will be completing PFT's in the future. Elevated BP at specialist office, normal in office today. Has been checking BP at home 130/70's. Chest tightness which is constant and worse with SOB. Mild lower leg swelling. Taking Lasix 40 mg daily, Losartan 100 mg daily. Echo completed, showed Mild to moderate mitral annular calcifications. Will be having heart CT to evaluate calcifications noted on Echo. Discussions of a possible heart cath. Had a heart cath in 2021. Use to see Cardiology, [facility], Dr. Varela, has been a couple of years. Was instructed she no longer needed to follow with them. PAST MEDICAL HISTORY: PAST MEDICAL HISTORY Diagnosis Date Diverticulosis of colon (without mention of hemorrhage) Family history of malignant neoplasm of gastrointestinal tract Head injury 09/30 trip fall HTN (hypertension) Hypothyroidism Internal hemorrhoids without mention of complication SREEKANTH (obstructive sleep apnea) Other and unspecified hyperlipidemia Pneumonia 07/2011 Snoring Trigeminal neuralgia PAST SURGICAL HISTORY Procedure Laterality Date BIOPSY BREAST OPEN INCISIONAL Left LATE Bx of breast, incisional COLONOSCOPY FLX DX W/COLLJ SPEC WHEN PFRMD 03/12/2008 COLONOSCOPY FLX DX W/COLLJ SPEC WHEN PFRMD 02/05/2014 Colonoscopy COLONOSCOPY FLX DX W/COLLJ SPEC WHEN PFRMD 05/20/2015 Colonoscopy COLONOSCOPY FLX DX W/COLLJ SPEC WHEN PFRMD 01/23/2019 Colonoscopy PAST SURGICAL HISTORY OF 09/03/2010 CRANIECTOMY EXCISON TUMOR, INFRATENTORIAL OR POST FOSSA, MENIGIOMA PAST SURGICAL HISTORY OF 05/06/2011 right MVD fro [place] PAST SURGICAL HISTORY OF 04/2019 Trigeminal neuralgia surgery. Brain leak in August 2019 REMOVAL GALLBLADDER N/A 08/30/2022 TONSILLECTOMY PRIMARY/SECONDARY Tonsillectomy XCAPSL CTRC RMVL INSJ IO LENS PROSTH W/O ECP 2012 Cataract Extraction with PC IOL XCAPSL CTRC RMVL INSJ IO LENS PROSTH W/O ECP 2012 Cataract Extraction with PC IOL ALLERGIES Amoxicillin, Carbamazepine, Codeine, Percocet [Oxycodone-Acetaminophen], Tegretol [Carbamazepine Analogues], Tramadol, Vicodin [Hydrocodone-Acetaminophen ], Vioxx [Rofecoxib], Demerol [Meperidine Hcl], Neurontin [Gabapentin], Topamax [Topiramate], and Fentanyl MEDICATIONS Current Outpatient Medications Medication Sig Pregabalin (LYRICA) 200 mg capsule Take 1 capsule by mouth once daily for 180 days. losartan (COZAAR) 100 mg tablet Take 1 tablet by mouth once daily. levothyroxine (SYNTHROID) 100 mcg tablet take 1 tablet by mouth once daily on an empty stomach furosemide (LASIX) 40 mg tablet Take 1 tablet by mouth once daily. montelukast (SINGULAIR) 10 mg tablet Take 1 tablet by mouth daily at bedtime. Sennosides 25 mg tab Take 1 tablet by mouth daily at bedtime. No current facility-administered medications for this visit. FAMILY HISTORY Problem Relation Age of Onset Alzheimer's Disease Mother Heart Mother pacemaker Stroke Mother Heart Father VALVE REPLACEMENT,PACE MAKER Heart Sister Heart Brother Heart Brother Colon Cancer Sister Breast Cancer Sister Breast Cancer Daughter Social History Tobacco Use Smoking status: Never Smokeless tobacco: Never Vaping Use Vaping status: Never Used Substance Use Topics Alcohol use: No Drug use: No REVIEW OF SYSTEMS GENERAL: No weight loss, malaise or fevers/chills HEENT: Negative for frequent or significant headaches, No changes in hearing or vision. NECK: Negative for lumps, goiter, pain and significant neck swelling RESPIRATORY: + SOB CARDIOVASCULAR: Chest tightness GI: No nausea, vomiting, or diarrhea/constipation. No hematochezia/melena. No heartburn or reflux symptoms. : No history of dysuria, freque (more content not included)... Normal [facility] [id number] 08-10-2024 ECG01 Ventricular Rate : 8 2 BPM Atrial Rate : 82 BPM P-R Interval : 178 ms QRS Duration : 82 ms Q-T Interval : 366 ms QTC Calculation(Bazett) : 427 ms Calculated P Spring : 70 degrees Calculated R Spring : -39 degrees Calculated T Spring : 34 degrees NORMAL SINUS RHYTHM LEFT AXIS DEVIATION ABNORMAL ECG Confirmed by MD MURPHY QARAB ([id number]) on 08/14/2024 12:07:21 PM NAME : KATE OREILLY PID : [id number] : 1945 Gender : Female Race : ORD : Procedure Date : Aug 10 2024 09:19:57 Edit Date : Aug 14 2024 12:07:23 Diagnosis: NORMAL SINUS RHYTHM LEFT AXIS DEVIATION ABNORMAL ECG Confirmed by MD MURPHY QARAB ([id number]) on 08/14/2024 12:07:21 PM Test Reason : [facility] Over[facility] By : MD MURPHY QARAB Edited By : MD MURPHY QARAB Referred By : Bessy Yates Acquired by : Eliana patel [facility] BNP (brain natriuretic pepti de measurement)Ordered By: Tyler Singh on 08-07-2024 Natriuretic peptide B (Bld) [Mass/Vol] 40.0 pg/mL 0-100 [facility] BNP,B-Type NATRIURETIC PEPTI Xiao 08-07-2024 Natriuretic peptide B (Bld) [Mass/Vol] 40.0 pg/mL Normal 0-100 [facility] Comment on above: Performed By: #### L 503.6620 #### [facility] [address] [place], [address] Echo Completeon 08-04-2024 Echo Complete [facility] [address] [place] [address] Echo Complete 08/04/24 1458 MR#: [id number] Acct: [id number] Name: KATE OREILLY Rep #: [id number] : 1945 79 From: Alyssa Isaac MD Attending Dr: Dr. Tyler Singh MD Status: REG CLI Ordering Dr: Tyler Singh MD Date: 08/04/24 Location: [facility] Sex: F C Admitted: Reason For Study Reason For Study: DYSPNEA Procedure This was a 2D Doppler, Color Flow transthoracic echocardiogram. The study was technically difficult. Exam performed in department. Left Ventricle Normal LV size. The estimated ejection fraction is 65 %. No regional wall motion abnormalities noted. Right Ventricle Mildly dilated right ventricle. Normal systolic function. Atria The left and right atria are normal. No doppler evidence for ASD. Mitral Valve There is mild to moderate mitral annular calcification. There is no mitral valve stenosis. No mitral valve insufficiency. Tricuspid Valve There is no tricuspid stenosis. Trivial tricuspid valve insufficiency. Pulmonary artery systolic pressure is 55 mmHg. Aortic Valve Trisinus/trileaflet aortic valve. There is no aortic stenosis. No aortic valve insufficiency. Pulmonic Valve There is no pulmonic valvular stenosis. No pulmonic valve insufficiency. Great Vessels Normal aortic root. Pericardium/Pleural No pericardial effusion. MMode/2D Measurements Calculations LVIDd: 4.0 cm IVSd: 1.1 cm LVOT diam: 2.0 cm LVIDs: 2.2 cm LVPWd: 1.1 cm LVOT area: 3.1 cm2 RVDd: 4.0 cm FS: 46.1 % asc Aorta Diam: 3.3 cm LAV(MOD-bp): 23.0 ml LVAd ap4: 12.1 cm2 LAV(MOD-bp) Indexed: 11.5 ml/m2 LVLd ap4: 6.1 cm LAV(MOD-sp2): 28.4 ml EDV(MOD-sp4): 19.3 ml LAV(MOD-sp4): 18.6 ml EDV(sp4-el): 20.2 ml LVAs ap4: 5.4 cm2 LVLs ap4: 4.8 cm ESV(MOD-sp4): 5.2 ml ESV(sp4-el): 5.1 ml EF(MOD-sp4): 73.4 % EF(sp4-el): 74.8 % LVAd ap2: 12.9 cm2 SV(MOD-sp4): 14.2 ml SV(MOD-sp2): 18.8 ml LVLd ap2: 5.8 cm SI(MOD-sp4): 7.1 ml/m2 SI(MOD-sp2): 9.4 ml/m2 EDV(MOD-sp2): 24.2 ml EDV(sp2-el): 24.4 ml LVAs ap2: 5.1 cm2 LVLs ap2: 4.4 cm ESV(MOD-sp2): 5.4 ml ESV(sp2-el): 5.0 ml EF(MOD-sp2): 77.7 % SV(sp4-el): 15.1 ml Ao sinus diam: 2.[address] Junction: 2.2 cm LA dimension(2D): 3.2 cm LA A4 area: 9.9 cm2 RA A4 area: 12.0 cm2 TAPSE: 1.8 cm Time Measurements MV dec time: 0.28 sec Doppler Measurements Calculations MV E max luis felipe: 64.5 cm/sec Lat Peak E' Luis Felipe: 6.7 cm/sec Med Peak E' Luis Felipe: 7.6 cm/sec MV A max luis felipe: 127.5 cm/sec E/E' lat: 9.6 E/E' med: 8.5 MV E/A: 0.51 MV dec slope: 228.8 cm/sec2 Ao V2 max: 163.4 cm/sec LV V1 max: 136.1 cm/sec Ao max P.7 mmHg LV V1 max P.4 mmHg Ao V2 mean: 125.9 cm/sec LV V1 mean P.4 mmHg Ao mean P.7 mmHg LV V1 mean: 100.3 cm/sec Ao V2 VTI: 32.3 cm LV V1 VTI: 23.5 cm AV (velocity ratio): 0.73 JERAMY(I,D): 2.2 cm2 JERAMY(V,D): 2.6 cm2 SV(LVOT): 72.6 ml PA V2 max: 80.1 cm/sec TR max luis felipe: 349.7 cm/sec TR max P.9 mmHg ECHO/Echo Complete Interpretation Summary The estimated ejection fraction is 65 %. Mildly dilated right ventricle. Ordering Physician: Tyler Singh V Referring Physician: MD Nito Kenn Performed By: Nikki Brandon RDCS 08/06/24 5310 Date Alyssa Isaac MD CC: Dr. Kenn Beauchamp MD; Dr. Tyler Singh MD Date Dictated: 08/04/24 1458 Date Transcribed: 08/06/24 1250 Curing Machine Operator: S[facility] C[facility]N Telephone (FAMPWS) -- KATE OREILLY F ([id number]) 1945 F Date Time Provider Department 07/31/24 KENN BEAUCHAMP FAMPWS During your visit today, we recorded the following information about you: Samantha Chaidez RN 07/31/2024 1:37 PM Signed Leslie Upton Np, in Dr. Singh office, called to report update on patient. Reports patient was seen in their office today with SOB. Patient reported to Assistant Attorney General that on , she was having SOB, chest tightness/pressure BP 181/80 (114). Patient reported she didn't go to ER b/c she feared the flu. Pulmonary did a HTN work up- Reports patient was stable today, BP 128/72 (108), SOB has worsened, but 98% POX- albuterol has not been helping with the SOB, LCTA, patient taking lasix for lower extremity edema- and having trace swelling. Pulmonary scheduled patient for an ECHO on Wednesday08/04/24. Patient will see Pulmonary Assistant Attorney General again on 08/07/24. Assistant Attorney General asking pcp office to call patient and schedule f/u in pcp office. Phoned patient and scheduled appt with Assistant Attorney General in pcp office for 08/10/24. Allergies As of Date: 07/31/2024 Noted Allergy Reaction AMOXICILLIN 03/30/2005 2 - Rash CARBAMAZEPINE 11/10/2018 2 - Rash CODEINE 05/20/2011 11 - Vomiting PERCOCET (OXYCODONE-ACETAMINOPHEN)0 09/15/2010 11 - Vomiting TEGRETOL (CARBAMAZEPINE ANALOGUES)04/17/2009 11 - Vomiting Comments: Dizziness, couldn't see straight Skin reaction when went in sun TRAMADOL 09/15/2010 11 - Vomiting VICODIN (HYDROCODONE-ACETAMINOPHE* 09/15/2010 11 - Vomiting VIOXX (ROFECOXIB) 03/30/2005 2 - Rash DEMEROL (MEPERIDINE HCL) 03/30/2005 5 - Intolerance NEURONTIN (GABAPENTIN) 04/17/2009 5 - Intolerance Comments: Dizziness, feeling like I couldn't work TOPAMAX (TOPIRAMATE) 05/22/2019 5 - Intolerance Comments: Flushed, red skin FENTANYL 08/16/2019 8 - GI Upset Date Reviewed: 03/16/2024 Reviewed by: Lupe Sapp MA - Fully Assessed Reason for Visit: Patient Update [1234] Prescriptions as of 07/31/2024 - Pregabalin (LYRICA) 200 mg capsule Take 1 capsule by mouth once daily for 180 days. - losartan (COZAAR) 100 mg tablet Take 1 tablet by mouth once daily. - levothyroxine (SYNTHROID) 100 mcg tablet take 1 tablet by mouth once daily on an empty stomach - furosemide (LASIX) 40 mg tablet Take 1 tablet by mouth once daily. - montelukast (SINGULAIR) 10 mg tablet Take 1 tablet by mouth daily at bedtime. - Sennosides 25 mg tab Take 1 tablet by mouth daily at bedtime. Meds Comments as of 01/10/2020: Using Lasix 40 mg bid - left over from 's rx. Problem List As Of Date 07/31/2024 Noted Resolved CHRONIC SINUSITIS NEC [J32.8] 05/18/2005 Trigeminal neuralgia [G50.0] 05/18/2005 FAMILY HISTORY OF GI NEOPLASM [Z80.0] 10/10/2007 Hyperlipidemia, mixed [E78.2] 10/10/2007 Hypothyroidism [E03.9] 10/11/2007 SLEEP APNEA NOS [G47.30] 12/03/2008 Vitamin D deficiency [E55.9] 03/21/2010 History of meningioma of the brain [Z86.011] 07/14/2010 Essential hypertension, benign [I10] 08/11/2010 Low back pain [M54.50] 11/13/2011 Obesity, Class I, BMI 30-34.9 [E66.811] 05/15/2019 Pseudomeningocele [G96.198] 07/27/2019 Bilateral leg edema [R60.0] 01/11/2020 Encounter Status:Closed by Samantha CHAIDEZ on 07/31/24 Normal [facility] BNP (brain natriuretic pepti de measurement)Ordered By: Tyler Singh on 07-10-2024 Natriuretic peptide B (Bld) [Mass/Vol] 19.7 pg/mL 0-100 [facility] BNP,B-Type NATRIURETIC PEPTI Xiao 07-10-2024 Natriuretic peptide B (Bld) [Mass/Vol] 19.7 pg/mL Normal 0-100 [facility] Comment on above: Performed By: #### L 503.6620 ####[facility] [address] [place], [place], [address] BNP,B-Type NATRIURETIC PEPTI Xiao 04-10-2024 Natriuretic peptide B (Bld) [Mass/Vol] 22.9 pg/mL Normal 0-100 [facility] Comment on above: Performed By: #### L 503.6620 #### [facility] [address] [place], [place], [id number] CNOVon 03-16-2024 CNOV Office Visit (FAMPWS ) -- KATE OREILLY ([id number]) 1945 F Date Time Provider Department 03/16/24 9:20 AM KENN BEAUCHAMP FAMPWS During your visit today, we recorded the following information about you: Pulse Respiration Blood pressure Weight 68/minute 16/minute 140/70 92.6 kg Kenn Beauchamp MD 03/16/2024 4:54 PM Signed Chief Complaint Patient presents with: F/U 6 months HPI Kate Oreilly is a 79 year old female who presents here today for 6 month follow up. 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 No bowel, Gi, or urinary issues. Uses colace prn constipation but this has been doing well as long as she is eating salads. Thyroid: Taking Synthroid 100 mcg daily. No missed dosages. Wondering about [place]'s as her grand daughter has it and pt feels she has symptoms. Her grand daughter was gaining weight rapidly. Pt feels that she is having trouble with losing weight, can't seem to get under 200 lbs. Had brain tumor removed in 2008. She states she hasn't had anyone following that since. She is limited on how far she can drive. Unsure where a local neurosurgeon is. She has dizziness and balance problems. The dizziness is not as bad if she eats eggs in the mornings. Edema: linda legs; stable with Lasix 40 mg 1 pill once daily, supposed to use bid. Uses Compression stockings some, not much in the summer. Elevation when feet/legs burn. Pain: Chronic pain due to trigeminal neuralgia and chronic back pain. Taking Lyrica 200 mg 1 cap daily; recently cut down from twice a day. PCP agreed to start prescribing her Lyrica at last OV. Was following with Pain Management Dr. Yadav but declined any further follow ups as she was not getting any relief with all alternatives tried. Injections made her feel worse. Lipid/Glucose: Currently on no medications. Tries to watch diet. Tries to exercise as much as she is able. HTN: Follows with [facility]. Does not check BP much at home. Taking Losartan 100 mg daily. Denies any chest pains. Has chronic SOB and issues with dizziness and balance. Feels the SOB would improve if she could lose some weight. SREEKANTH: Taking Singulair 10 mg daily. Follows with Freedom Osman at [facility] for SOB/SREEKANTH. Wears CPAP nightly, sleeps well on average gets 8 hours of good sleep. Feels her SOB would improve if she could lose some weight. Past medical history, appointments, medications, allergies reviewed. Previous Medical History PAST MEDICAL HISTORY Diagnosis Date Diverticulosis of colon (without mention of hemorrhage) Family history of malignant neoplasm of gastrointestinal tract Head injury 09/30 trip fall HTN (hypertension) Hypothyroidism Internal hemorrhoids without mention of complication SREEKANTH (obstructive sleep apnea) Other and unspecified hyperlipidemia Pneumonia 07/2011 Snoring Trigeminal neuralgia Previous Surgical History PAST SURGICAL HISTORY Procedure Laterality Date BIOPSY BREAST OPEN INCISIONAL Left LATE 'S Bx of breast, incisional COLONOSCOPY FLX DX W/COLLJ SPEC WHEN PFRMD 03/12/2008 COLONOSCOPY FLX DX W/COLLJ SPEC WHEN PFRMD 02/05/2014 Colonoscopy COLONOSCOPY FLX DX W/COLLJ SPEC WHEN PFRMD 05/20/2015 Colonoscopy COLONOSCOPY FLX DX W/COLLJ SPEC WHEN PFRMD 01/23/2019 Colonoscopy PAST SURGICAL HISTORY OF 09/03/2010 CRANIECTOMY EXCISON TUMOR, INFRATENTORIAL OR POST FOSSA, MENIGIOMA PAST SURGICAL HISTORY OF 05/06/2011 right MVD fro [place] PAST SURGICAL HISTORY OF 04/2019 Trigeminal neuralgia surgery. Brain leak in August 2019 REMOVAL GALLBLADDER N/A 08/30/2022 TONSILLECTOMY PRIMARY/SECONDARY Tonsillectomy XCAPSL CTRC RMVL INSJ IO LENS PROSTH W/O ECP 2012 Cataract Extraction with PC IOL XCAPSL CTRC RMVL INSJ IO LENS PROSTH W/O ECP 2012 Cataract Extraction with PC IOL Family History FAMILY HISTORY Problem Relation Age of Onset Alzheimer's Disease Mother Heart Mother pacemaker Stroke Mother Heart Father VALVE REPLACEMENT,PACE MAKER Heart Sister Heart Brother Heart Brother Colon Cancer Sister Breast Cancer Sister Breast Cancer Daughter Patient Allergies ALLERGIES Allergen Reactions Amoxicillin Rash Carbamazepine Rash Codeine Vomiting Percocet [Oxycodone* Vomiting Tegretol [Carbamaze* Vomiting Dizziness, couldn't see straight Skin reaction when went in sun Tramadol Vomiting Vicodin [Hydrocodon* Vomiting Vioxx [Rofecoxib] Rash Demerol [Meperidine* Intolerance Neurontin [Gabapent* Intolerance Dizziness, feeling like I couldn't work Topamax [Topiramate] Intolerance Flushed, red skin Fentanyl GI Upset Current Medications Current Outpatient Medications on File Prior to Visit Medication Sig Pregabalin (LYRICA) 20 (more content not included)... Normal [facility] Comprehensive metabolic 2000 panelon 03-06-2024 Albumin [Mass/Vol] 4.0 g/dL Normal 3.9-4.9 [facility] Comment on above: Order Comment: Speci men Type: BLOOD SPECIMENOrdering Facility: [facility] Address: [address] [place] [address] Performed By: #### 2 4331-1, 21019-9, 3 ####[facility] LABCLIA [id number] [place] [address] [place] ALP [Catalytic activity/Vol] 75 U/L Normal 34-123 [facility] Comment on above: Order Comment: Speci men Type: BLOOD SPECIMENOrdering Facility: [facility] Address: [address] [place] [address] Performed By: #### 2 4331-1, , 3 ####[facility] LABCLIA [id number] [place] [address] [place] ALT [Catalytic activity/Vol] 15 U/L Normal 7-38 [facility] Comment on above: Order Comment: Speci men Type: BLOOD SPECIMENOrdering Facility: [facility] Address: [address] [place] [address] Performed By: #### 2 4331-1, , 3015-08 ####[facility] LABIA [id number] [place] [id number] [place] Anion gap [Moles/Vol] 11 mmol/L Normal 8-15 [facility] Comment on above: Order Comment: Speci men Type: BLOOD SPECIMENOrdering Facility: [facility] Address: [address] [place] [id number] Performed By: #### 2 4331-1, 71194-0, 3 ####[facility] LABCLIA [id number] [place] [id number] [place] AST [Catalytic activity/Vol] 20 U/L Normal 13-35 [facility] Comment on above: Order Comment: Speci men Type: BLOOD SPECIMENOrdering Facility: [facility] Address: [address] [place] [address] Performed By: #### 2 4331-1, 36922-7, 3015-3 ####[facility] LABCLIA [id number] [address] [address] [place] Bilirubin [Mass/Vol] 0.3 mg/dL Normal 0.2-1.3 [facility] Comment on above: Order Comment: Speci men Type: BLOOD SPECIMENOrdering Facility: [facility] Address: [address] [place], [place] [address] Performed By: #### 2 4331-1, 22259-2, 3015-3 ####[facility] LABCLIA [id number] [place] [address] [place] Calcium [Mass/Vol] 8.8 mg/dL Normal 8.5-10.2 [facility] Comment on above: Order Comment: Speci men Type: BLOOD SPECIMENOrdering Facility: [facility] Address: [address] [place] [address] Performed By: #### 2 4331-1, 35970-8, 3 ####[facility] LABCLIA [id number] [place] [id number] [place] Chloride [Moles/Vol] 103 mmol/L Normal 98-107 [facility] Comment on above: Order Comment: Speci men Type: BLOOD SPECIMENOrdering Facility: [facility] Address: [address] [place] [address] Performed By: #### 2 4331-1, 56493-2, 3015-3 ####[facility] LABCLIA [id number] [address] [address] [place] CO2 [Moles/Vol] 24 mmol/L Normal 22-30 [facility] Comment on above: Order Comment: Speci men Type: BLOOD SPECIMENOrdering Facility: [facility] Address: [address] [place] [address] Performed By: #### 2 4331-1, 51181-5, 6-3 ####[facility] LABIA [id number] [address] [address] [place] Creatinine [Mass/Vol] 0.91 mg/dL Normal 0.58-0.96 [facility] Comment on above: Order Comment: Speci men Type: BLOOD SPECIMENOrdering Facility: [facility] Address: [address] [place] [address] Performed By: #### 2 4331-1, 92075-4, 3015-3 ####[facility] [id number] [place] [address] [place] Creatinine and Glomerular filtration rate.predicted panel (S/P/Bld) 64 mL/min/1.73m??? Normal >=60 [facility] Comment on above: Order Comment: Darnell hale Type: BLOOD SPECIMENOrdering Facility: [facility] Address: [address] [place] [address] Result Comment: Ros mated Glomerular Filtration Rate (eGFR) is calculated using the 2020 CKD-EPI creatinine equation. This equation utilizes serum creatinine, sex, and age as parameters. The creatinine assay has traceable calibration to isotope dilution-mass spectrometry. Refer to KDIGO guidelines for clinical interpretation. In patients with unstable renal function, e.g. those with acute kidney injury, the eGFR may not accurately reflect actual GFR. Performed By: #### 2 4331-1, 30873-9, 3 ####[facility] LABIA [id number] [address] [address] [place] Glucose [Mass/Vol] 109 mg/dL High 74-99 [facility] Comment on above: Order Comment: Matii men Type: BLOOD SPECIMENOrdering Facility: [facility] Address: [address] [place] [address] Result Comment: The [place] Diabetes Association (ADA) provides guidance for cutoff values for fasting glucose and random glucose. The ADA defines fasting as no caloric intake for at least 8 hours. Fasting plasma glucose results between 100 to 125 mg/dL indicate increased risk for diabetes (prediabetes). Fasting plasma glucose results greater than or equal to 126 mg/dL meet the criteria for diagnosis of diabetes. In the absence of unequivocal hyperglycemia, results should be confirmed by repeat testing. In a patient with classic symptoms of hyperglycemia or hyperglycemic crisis, random plasma glucose results greater than or equal to 200 mg/dL meet the criteria for diagnosis of diabetes. Reference: Standards of Medical Care in Diabetes 2016, [place] Diabetes Association. Diabetes Care. 2016.39(Suppl 1). Performed By: #### 2 4331-1, 99158-4, 3015-3 ####[facility] LABIA [id number] [place] [address] [place] Potassium [Moles/Vol] 4.3 mmol/L Normal 3.7-5.1 [facility] Comment on above: Order Comment: Speci men Type: BLOOD SPECIMENOrdering Facility: [facility] Address: [address] [place] [address] Performed By: #### 2 4331-1, , 3 ####[facility] LABIA [id number] [place] [address] [place] Protein [Mass/Vol] 6.4 g/dL Normal 6.3-8.0 [facility] Comment on above: Order Comment: Speci men Type: BLOOD SPECIMENOrdering Facility: [facility] Address: [address] [place], [place] [address] Performed By: #### 2 4331-1, , 3 ####[facility] LABIA [id number] [address] [address] [place] Sodium [Moles/Vol] 138 mmol/L Normal 136-144 [facility] Comment on above: Order Comment: Speci men Type: BLOOD SPECIMENOrdering Facility: [facility] Address: [address] [place] [address] Performed By: #### 2 4331-1, , 3 ####[facility] LABCLIA [id number] [place] [address] [place] Urea nitrogen [Mass/Vol] 15 mg/dL Normal 7-21 [facility] Comment on above: Order Comment: Speci men Type: BLOOD SPECIMENOrdering Facility: [facility] Address: [address] [place] [address] Performed By: #### 2 4331-1, 54093-9, 3016-3 ####[facility] LABCLIA [id number] [place] [address] [place] HbA1c (Bld)on 03-06-2024 Average glucose Estimated from glycated hemoglobin (Bld) [Mass/Vol] 120 mg/dL Normal [facility] Comment on above: Order Comment: Matii [facility] Type: BLOOD SPECIMENOrdering Facility: [facility] Address: [address] [place] [address] Result Comment: eAG: (Estimated average glucose) is a calculated value from HgbA1c and is litigation claim representative of the average blood glucose level in the last 2-3 month period. Performed By: #### 5 5454-3 ####[facility] LABCLIA [id number] [place] [address] [place] HbA1c (Bld) [Mass fraction] 5.8 % High 4.3-5.6 [facility] Comment on above: Order Comment: Speci men Type: BLOOD SPECIMENOrdering Facility: [facility] Address: [address] [place] [address] Result Comment: [place] Diabetes Association guidelines indicate that patients with HgbA1c in the range 5.7-6.4% are at increased risk for development of diabetes, and intervention by lifestyle modification may be beneficial. HgbA1c greater or equal to 6.5% is considered diagnostic of diabetes. Performed By: #### 5 5454-3 ####[facility] LABCLIA [id number] [place] [id number] [place] Lipid 1996 panelon 09-16-202 4 Cholesterol [Mass/Vol] 201 mg/dL High <200 [facility] Comment on above: Order Comment: Speci men Type: BLOOD SPECIMENOrdering Facility: [facility] Address: [address] [place] [address] Result Comment: <200 mg/dL, Desirable 200-239 mg/dL, Borderline high >239 mg/dL, High Performed By: #### 2 4331-1, 82329-3, 6-3 ####[facility] LABCLIA [id number] [facility] [address] [address] [place] Cholesterol in HDL [Mass/Vol] 62 mg/dL Normal >39 [facility] Comment on above: Order Comment: Speci men Type: BLOOD SPECIMENOrdering Facility: [facility] Address: [address] [place] [address] Result Comment: 40-5 9 mg/dL, Acceptable >59 mg/dL, High: Negative risk factor for coronary heart disease <40 mg/dL, Low: Positive risk factor for coronary heart disease Performed By: #### 2 4331-1, 99660-3, 3015-3 ####[facility] LABCLIA [id number] [address] [address] [place] Cholesterol in LDL [Mass/Vol] 120 mg/dL High <100 [facility] Comment on above: Order Comment: Speci men Type: BLOOD SPECIMENOrdering Facility: [facility] Address: [address] [place] [address] Result Comment: <100 mg/dL, Optimal 100-129 mg/dL, Near optimal/above optimal 130-159 mg/dL, Borderline high 160-189 mg/dL, High >189 mg/dL, Very high Secondary prevention optimal LDL Cholesterol levels are recommended to be < 70 mg/dL Performed By: #### 2 4331-1, 24027-4, 3015-3 ####[facility] LABCLIA [id number] [address] [address] [address] [place] Cholesterol in LDL/Cholesterol in HDL [Mass ratio] 1.94 {ratio} Normal <2.54 [facility] Comment on above: Order Comment: Speci men Type: BLOOD SPECIMENOrdering Facility: [facility] Address: [address] [place] [address] Result Comment: Tyra vann: 1. National Cholesterol Education Program ATP III Guideline At-A-Glance Quick Desk Reference: National Heart, Lung, and Blood [place]. National Institutes of Health. 2001: NIH Publication No. 01-3305. 2. An International Atherosclerosis Society position paper: global recommendations for the management of dyslipidemia: executive summary, Atherosclerosis. 2014: 232(2):410-413. Performed By: #### 2 4331-1, 19044-1, 6-3 ####[facility] LABCLIA [id number] [place] [address] [place] Cholesterol in VLDL [Mass/Vol] 19 mg/dL Normal <30 [facility] Comment on above: Order Comment: Speci men Type: BLOOD SPECIMENOrdering Facility: [facility] Address: [address] [place] [address] Performed By: #### 2 4331-1, 65313-1, 6-3 ####[facility] LABCLIA [id number] [place] [address] [place] Cholesterol non HDL [Mass/Vol] 139 mg/dL High <130 [facility] Comment on above: Order Comment: Speci men Type: BLOOD SPECIMENOrdering Facility: [facility] Address: [address] [place] [address] Result Comment: <130 mg/dL, Optimal 130-159 mg/dL, Near optimal/above optimal 160-189 mg/dL, Borderline high 190-219 mg/dL, High >219 mg/dL, Very high Secondary prevention optimal non HDL Cholesterol levels are recommended to be <100 mg/dL Performed By: #### 2 4331-1, 18298-2, 3016-3 ####[facility] LABCLIA [id number] [address] [address] [place] Cholesterol.total/Chol esterol in HDL [Mass ratio] 3.24 {ratio} Normal <5.10 [facility] Comment on above: Order Comment: Speci men Type: BLOOD SPECIMENOrdering Facility: [facility] Address: [address] [place] [address] Performed By: #### 2 4331-1, 51737-2, 3 ####[facility] LABCLIA [id number] [place] [address] [place] FASTING TIME 12 hrs Normal [facility] Comment on above: Order Comment: Speci men Type: BLOOD SPECIMENOrdering Facility: [facility] Address: [address] [place] [address] Performed By: #### 2 4331-1, , 3 ####[facility] LABCLIA [id number] [place] [id number] [place] Triglyceride [Mass/Vol] 96 mg/dL Normal <150 [facility] Comment on above: Order Comment: Speci men Type: BLOOD SPECIMENOrdering Facility: [facility] Address: [address] [place] [address] Result Comment: <150 mg/dL, Normal 150-199 mg/dL, Borderline high 200-499 mg/dL, High >499 mg/dL, Very high Performed By: #### 2 4331-1, , 3 ####[facility] LABCLIA [id number] [place] [id number] [place] TSH SerPl-aCncon 03-06-2024 TSH Qn 1.780 m[IU]/L Normal 0.270-4.200 [facility] Comment on above: Order Comment: Speci men Type: BLOOD SPECIMENOrdering Facility: [facility] Address: [address] [place] [address] Performed By: #### 2 4331-1, 63567-9, 3 ####[facility] LABCLIA [id number] [place] [id number] [place] CNPNon 12-21-2023 CNPN Telephone (FAMPWS) -- DENILSONKATE ([id number]) 1945 F Date Time Provider Department 12/21/23 [facility] During your visit today, we recorded the following information about you: Samantha Chaidez, CORTEZ 12/21/2023 10:00 AM Signed Thuan Soler reports the lasix 40 mg Rx they received today has 2 sets of instructions on it. Asking which instructions should they use? Please phone Thuan with reply: [phone] Kenn Beauchamp MD 12/21/2023 10:38 AM Signed Corrected Rx sent for once daily Kenn Beauchamp MD Allergies As of Date: 12/21/2023 Noted Allergy Reaction AMOXICILLIN 03/30/2005 2 - Rash CARBAMAZEPINE 11/10/2018 2 - Rash CODEINE 05/20/2011 11 - Vomiting PERCOCET (OXYCODONE-ACETAMINOPHEN)0 09/15/2010 11 - Vomiting TEGRETOL (CARBAMAZEPINE ANALOGUES)04/17/2009 11 - Vomiting Comments: Dizziness, couldn't see straight Skin reaction when went in sun TRAMADOL 09/15/2010 11 - Vomiting VICODIN (HYDROCODONE-ACETAMINOPHE* 09/15/2010 11 - Vomiting VIOXX (ROFECOXIB) 03/30/2005 2 - Rash DEMEROL (MEPERIDINE HCL) 03/30/2005 5 - Intolerance NEURONTIN (GABAPENTIN) 04/17/2009 5 - Intolerance Comments: Dizziness, feeling like I couldn't work TOPAMAX (TOPIRAMATE) 05/22/2019 5 - Intolerance Comments: Flushed, red skin FENTANYL 08/16/2019 8 - GI Upset Date Reviewed: 08/26/2023 Reviewed by: Yolanda Lau MA - Fully Assessed Reason for Visit: Medication Problem [65] Visit Diagnosis:Bilateral leg edema [R60.0] Order(s):furosemide (LASIX) 40 mg tabletTake 1 tablet by mouth once daily.Disp: 90 tabletRfl: 3 Prescriptions as of 12/21/2023 - furosemide (LASIX) 40 mg tablet Take 1 tablet by mouth once daily. - Pregabalin (LYRICA) 200 mg capsule Take 1 capsule by mouth once daily for 90 days. - montelukast (SINGULAIR) 10 mg tablet Take 1 tablet by mouth daily at bedtime. - losartan (COZAAR) 100 mg tablet Take 1 tablet by mouth once daily. - levothyroxine (SYNTHROID) 100 mcg tablet Take 1 tablet by mouth once daily. Take on empty stomach - Sennosides 25 mg tab Take 1 tablet by mouth daily at bedtime. Meds Comments as of 01/10/2020: Using Lasix 40 mg bid - left over from 's rx. Problem List As Of Date 12/21/2023 Noted Resolved CHRONIC SINUSITIS NEC [J32.8] 05/18/2005 Trigeminal neuralgia [G50.0] 05/18/2005 FAMILY HISTORY OF GI NEOPLASM [Z80.0] 10/10/2007 Hyperlipidemia, mixed [E78.2] 10/10/2007 Hypothyroidism [E03.9] 10/11/2007 SLEEP APNEA NOS [G47.30] 12/03/2008 Vitamin D deficiency [E55.9] 03/21/2010 History of meningioma of the brain [Z86.011] 07/14/2010 Essential hypertension, benign [I10] 08/11/2010 Low back pain [M54.50] 11/13/2011 Obesity, Class I, BMI 30-34.9 [E66.9] 05/15/2019 Pseudomeningocele [G96.198] 07/27/2019 Bilateral leg edema [R60.0] 01/11/2020 Prescriptions ordered this encounter Disp Refills Start End FUROSEMIDE 40 MG TABLET 90 t* 3 12/21/2023 Route: ORAL Sig: Take 1 tablet by mouth once daily. Medications Discontinued During This Encounter Prescriptions - furosemide (LASIX) 40 mg tablet (Discontinued) Take 1 tablet by mouth once daily. Take 1-2 tabs po daily Encounter Status:Closed by CYNDIE SIDDIQUI on 12/21/23 Normal [facility] Basophil percentageOrdered B y: Dr. Coffman on 09-05-2022 Bilirubin [Mass/Vol] 0.60 mg/dL 0.20-1.00 [facility] Comment on above: For patients on eltr ombopag therapy, use of Dimension [place] TBIL is not recommended. Chloride [Moles/Vol] 111 mmol/L 98-107 [facility] Glucose [Mass/Vol] 114 mg/dL 74-106 [facility] Comment on above: Fasting Glucose resu lt from 100 to 125 mg/dL suggests IMPAIRED HOMEOSTASIS per A.D.A. criteria. Potassium [Moles/Vol] 3.3 mmol/L 3.5-5.1 [facility] Protein [Mass/Vol] 6.0 g/dL 6.4-8.2 [facility] Sodium [Moles/Vol] 144 mmol/L 136-145 [facility] Laboratory - Chemistry and C hemistry - challengeOrdered By: Dr. Coffman on 09-05-2022 ALP [Catalytic activity/Vol] 75 U/L 45-117 [facility] ALT [Catalytic activity/Vol] 63 U/L 13-56 [facility] CO2 [Moles/Vol] 24.0 mmol/L 21.0-32.0 [facility] Globulin (S) [Mass/Vol] 3.7 g/dL 2.2-4.2 [facility] Urea nitrogen/Creatinine [Mass ratio] 12.9 mg/mg 10-20 [facility] No Panel InformationOrdered By: Dr. Coffman on 09-05-2022 Estimated Creatinine Clearance Calc 45.82 ml/min [facility] Estimated GFR (MDRD) Amer 119 mL/min >60 [facility] Comment on above: GFR Calc Estimated GFR (MDRD) Non-Af Amer 99 mL/min >60 [facility] Comment on above: Non- GFR Calc Serum or plasma albumin opal urement (mass/volume)Ordered By: Dr. Coffman on 09-05-2022 Albumin [Mass/Vol] 2.3 g/dL 3.2-5.0 [facility] Serum or plasma albumin/glob ulin mass ratioOrdered By: Dr. Coffman on 09-05-2022 Albumin/Globulin [Mass ratio] 0.6 {ratio} 0.9-2.4 [facility] Serum or plasma calcium opal urement (mass/volume)Ordered By: Dr. Coffman on 09-05-2022 Calcium [Mass/Vol] 8.0 mg/dL 8.5-10.1 [facility] Serum or plasma creatinine m easurement (mass/volume)Ordered By: Dr. Coffman on 09-05-2022 Creatinine [Mass/Vol] 0.62 mg/dL 0.55-1.02 [facility] Comment on above: The validity of the calculated GFR & GFRAA in patients over 70 years has not been determined. Clinical correlation is essential. Serum or plasma urea nitroge n measurement (mass/volume)Ordered By: Dr. Coffman on 09-05-2022 Urea nitrogen [Mass/Vol] 8 mg/dL 7-18 [facility] Thin prep Papanicolaou smear with manual screeningOrdered By: Dr. Coffman on 09-05-2022 Thin prep Papanicolaou smear with manual screening 18 U/L 15-37 [facility] Thin prep Papanicolaou smear with manual screening 9 5-15 [facility] Absolute lymphocyte countOrd ered By: Dr. Coffman on 09-04-2022 Lymphocytes Auto (Unsp spec) [#/Vol] 2.18 10*3/uL 0.83-4.51 [facility] Basophil percentageOrdered B y: Dr. Coffman on 09-04-2022 Basophils/100 WBC (Bld) 0.4 % 0-1 [facility] Eosinophils/100 WBC (Bld) 1.1 % 0-5 [facility] Neutrophils (Bld) [#/Vol] 4.2 10*3/uL 2.0-7.7 [facility] Neutrophils/100 WBC (Bld) 59.5 % 47-70 [facility] WBC (Bld) [#/Vol] 7.1 10*3/uL 4.4-11.0 [facility] Blood erythrocytes count (nu mber/volume)Ordered By: Dr. Coffman on 09-04-2022 RBC (Bld) [#/Vol] 3.57 10*6/uL 4.2-5.4 [facility] Blood hemoglobin measurement (mass/volume)Ordered By: Dr. Coffman on 09-04-2022 Hemoglobin (Bld) [Mass/Vol] 10.2 g/dL 12.0-15.0 [facility] Blood lymphocytes/100 leukoc ytesOrdered By: Dr. Coffman on 09-04-2022 Lymphocytes/100 WBC (Bld) 30.9 % 19-41 [facility] Blood monocytes/100 leukocyt esOrdered By: Dr. Coffman on 09-04-2022 Monocytes/100 WBC (Bld) 7.7 % 0-10 [facility] Blood platelet mean volumeOr dered By: Dr. Coffman on 09-04-2022 Platelet mean volume (Bld) [Entitic vol] 11.9 fL 6.2-12.0 [facility] Determination of erythrocyte mean corpuscular volume (MCV)Ordered By: Dr. Coffman on 09-04-2022 MCV (RBC) [Entitic vol] 91.9 fL 81-99 [facility] Hematocrit Auto (Bld) [Volum e fraction]Ordered By: Dr. Coffman on 09-04-2022 Hematocrit (Bld) [Volume fraction] 32.8 % 37-47 [facility] Laboratory - Chemistry and C hemistry - challengeOrdered By: Dr. Coffman on 09-04-2022 Magnesium [Mass/Vol] 1.8 mg/dL 1.6-2.6 [facility] Laboratory - Hematology and Cell countsOrdered By: Dr. Coffman on 09-04-2022 Erythrocyte distribution width (RBC) [Entitic vol] 48.1 fL 35.1-43.9 [facility] Erythrocyte distribution width (RBC) [Ratio] 14.3 % 11.6-14.6 [facility] Immature granulocytes/100 WBC (Bld) 0.400 % 0.0-0.9 [facility] Comment on above: IG% - Immature Granu locytes (promyelocytes, myelocytes and metamyelocytes) > 1% indicates that a LEFT SHIFT is Present. MCH (RBC) [Entitic mass] 28.6 pg 27.0-32.0 [facility] Nucleated RBC/100 WBC (Bld) [Ratio] 0 % 0-5 [facility] MCHC Auto (RBC) [Mass/Vol]Or dered By: Dr. Coffman on 09-04-2022 MCHC (RBC) [Mass/Vol] 31.1 g/dL 32-36 [facility] Platelets bldOrdered By: Dr. Coffman on 09-04-2022 Platelets (Bld) [#/Vol] 171 10*3/uL 150-450 [facility] Basophil percentageOrdered B y: Robinson Mendenhall on 08-31-2022 Amylase [Catalytic activity/Vol] 1296 U/L 25-115 [facility] Erythrocyte sedimentation ra teOrdered By: Robinson Mendenhall on 08-31-2022 ESR (Bld) [Velocity] 19 mm/h 0-30 [facility] INR in Blood by Coagulation assayOrdered By: Robinson Mendenhall on 08-31-2022 INR Coag (Bld) [Relative time] 1.1 {INR} [facility] Laboratory - Chemistry and C hemistry - challengeOrdered By: Robinson Mendenhall on 08-31-2022 Lipase [Catalytic activity/Vol] 53714 U/L 73-393 [facility] Laboratory - CoagulationOrde red By: Robinson Mendenhall on 08-31-2022 PT Coag (PPP) [Time] 14.2 s 11.7-14.9 [facility] No Panel InformationOrdered By: Robinson Mendenhall on 08-31-2022 CA 19-9 Antigen 45 U/mL 0-35 [facility] Comment on above: [employer] El ectrochemiluminescence Immunoassay(ECLIA)Values obtained with different assay methods or kits cannotbe used interchangeably. Results cannot be interpreted asabsolute evidence of the presence or absence of malignantdisease. Hepatitis A IgM Antibody Negative Negative [facility] Hepatitis B Core IgM Antibody Negative Negative [facility] Hepatitis C Antibody (EIA) Non-Reactive Non Reactive [facility] Hepatitis C Antibody Comment Comment . [facility] Comment on above: Not infected with HC V unless early or acute infection issuspected (which may be delayed in an immunocompromisedindividual), or other evidence exists to indicate HCVinfection. No Panel InformationOrdered By: Dr. Hinojosa on 08-31-2022 Thyroid Stimulating Hormone (TSH) 0.89 uIU/mL 0.358-3.74 [facility] Serum mitochondria antibody detectionOrdered By: Robinson Mendenhall on 08-31-2022 Mitochondria Ab Ql (S) <20.0 Units 0.0-20.0 [facility] Comment on above: Negative 0.0 - 20.0 Equivocal 20.1 - 24.9 Positive >24.9Mitochondrial (M2) Antibodies are found in 90-96% ofpatients with primary biliary cirrhosis.Performed at: [facility] [place] [id number] Director: Michael Wu PhD, Phone: [phone] Serum or plasma C reactive p rotein measurement (mass/volume)Ordered By: Robinson Mendenhall on 08-31-2022 CRP [Mass/Vol] 32.70 mg/L 0.0-3.0 [facility] Comment on above: C-Reactive Protein ( CRP) provides useful information for thediagnosis, therapy and monitoring of inflammatory processesand associated diseases. For the evaluation of Relative Riskfor Cardiovascular Disease, a High Sensitivity CRP (HSCRP)should be ordered. Serum or plasma actin IgG an tibody assay (units/volume)Ordered By: Robinson Mendenhall on 08-31-2022 Actin IgG Qn 3 Units 0-19 [facility] Comment on above: Negative 0 - 19 Weak positive 20 - 30 Moderate to strong positive >30 Actin Antibodies are found in 52-85% of patients with autoimmune hepatitis or chronic active hepatitis and in 22% of patients with primary biliary cirrhosis.Performed at: [facility] [address] [id number] Director: Michael Wu PhD, Phone: [phone] Serum or plasma carcinoembry onic antigen measurement (mass/volume)Ordered By: Robinson Mendenhall on 08-31-2022 Carcinoembryonic Ag [Mass/Vol] 0.6 ng/mL 0.0-4.7 [facility] Comment on above: Nonsmokers <3.9 Smok ers <5.6[facility] Electrochemiluminescence Immunoassay(ECLIA)Values obtained with different assay methods or kitscannot be used interchangeably. Results cannot beinterpreted as absolute evidence of the presence orabsence of malignant disease. Serum or plasma ferritin sheri surement (mass/volume)Ordered By: Robinson Mendenhall on 08-31-2022 Ferritin [Mass/Vol] 98 ng/mL 8-252 [facility] Serum or plasma hepatitis B virus surface antigen detection by immunoassayOrdered By: Robinson Mendenhall on 08-31-2022 HBV surface Ag IA Ql Negative Negative [facility] Absolute lymphocyte countOrd ered By: Dr. Alvarado on 08-30-2022 Lymphocytes Auto (Unsp spec) [#/Vol] 1.92 10*3/uL 0.83-4.51 [facility] Basophil percentageOrdered B y: Dr. Alvarado on 08-30-2022 Bilirubin [Mass/Vol] 1.40 mg/dL 0.20-1.00 [facility] Comment on above: For patients on eltr ombopag therapy, use of Dimension [place] TBIL is not recommended. Chloride [Moles/Vol] 107 mmol/L 98-107 [facility] Glucose [Mass/Vol] 121 mg/dL 74-106 [facility] Comment on above: Fasting Glucose resu lt from 100 to 125 mg/dL suggests IMPAIRED HOMEOSTASIS per A.D.A. criteria. Potassium [Moles/Vol] 4.2 mmol/L 3.5-5.1 [facility] Comment on above: Moderate Hemolysis, Result may be falsely increased. Protein [Mass/Vol] 6.3 g/dL 6.4-8.2 [facility] Sodium [Moles/Vol] 143 mmol/L 136-145 [facility] Basophil percentage 0 SEEN /hpf 0-5 [facility] Basophils/100 WBC (Bld) 0.4 % 0-1 [facility] Eosinophils/100 WBC (Bld) 0.1 % 0-5 [facility] Neutrophils (Bld) [#/Vol] 5.5 10*3/uL 2.0-7.7 [facility] Neutrophils/100 WBC (Bld) 69.2 % 47-70 [facility] WBC (Bld) [#/Vol] 7.9 10*3/uL 4.4-11.0 [facility] Bilirubin Test strip Ql (U)O rdered By: Dr. Alvarado on 08-30-2022 Bilirubin Ql (U) Negative Negative [facility] Blood erythrocytes count (nu mber/volume)Ordered By: Dr. Alvarado on 08-30-2022 RBC (Bld) [#/Vol] 4.99 10*6/uL 4.2-5.4 [facility] Blood hemoglobin measurement (mass/volume)Ordered By: Dr. Alvarado on 08-30-2022 Hemoglobin (Bld) [Mass/Vol] 14.1 g/dL 12.0-15.0 [facility] Blood lymphocytes/100 leukoc ytesOrdered By: Dr. Alvarado on 08-30-2022 Lymphocytes/100 WBC (Bld) 24.3 % 19-41 [facility] Blood manual differential co mment interpretation (narrative result)Ordered By: Dr. Alvarado on 08-30-2022 Manual differential comment Ha (Bld) [Interp] SCANNED [facility] Blood monocytes/100 leukocyt esOrdered By: Dr. Alvarado on 08-30-2022 Monocytes/100 WBC (Bld) 5.6 % 0-10 [facility] Blood platelet adequacy dete ction by light microscopyOrdered By: Dr. Alvarado on 08-30-2022 Platelets LM Ql (Bld) ADEQUATE ADEQ [facility] Determination of erythrocyte mean corpuscular volume (MCV)Ordered By: Dr. Alvarado on 08-30-2022 MCV (RBC) [Entitic vol] 90.0 fL 81-99 [facility] Hematocrit Auto (Bld) [Volum e fraction]Ordered By: Dr. Alvarado on 08-30-2022 Hematocrit (Bld) [Volume fraction] 44.9 % 37-47 [facility] Ketones Test strip Ql (U)Ord ered By: Dr. Alvarado on 08-30-2022 Ketones Ql (U) Negative Negative [facility] Laboratory - Chemistry and C hemistry - challengeOrdered By: Dr. Alvarado on 08-30-2022 ALP [Catalytic activity/Vol] 112 U/L 45-117 [facility] ALT [Catalytic activity/Vol] 566 U/L 13-56 [facility] CO2 [Moles/Vol] 28.0 mmol/L 21.0-32.0 [facility] Globulin (S) [Mass/Vol] 3.1 g/dL 2.2-4.2 [facility] Lipase [Catalytic activity/Vol] 78181 U/L 73-393 [facility] Urea nitrogen/Creatinine [Mass ratio] 16.7 mg/mg 10-20 [facility] Laboratory - Hematology and Cell countsOrdered By: Dr. Alvarado on 08-30-2022 Erythrocyte distribution width (RBC) [Entitic vol] 44.9 fL 35.1-43.9 [facility] Erythrocyte distribution width (RBC) [Ratio] 13.7 % 11.6-14.6 [facility] Immature granulocytes/100 WBC (Bld) 0.400 % 0.0-0.9 [facility] Comment on above: IG% - Immature Granu locytes (promyelocytes, myelocytes and metamyelocytes) > 1% indicates that a LEFT SHIFT is Present. MCH (RBC) [Entitic mass] 28.3 pg 27.0-32.0 [facility] Nucleated RBC/100 WBC (Bld) [Ratio] 0 % 0-5 [facility] MCHC Auto (RBC) [Mass/Vol]Or dered By: Dr. Alvarado on 08-30-2022 MCHC (RBC) [Mass/Vol] 31.4 g/dL 32-36 [facility] Mucus LM Ql (Urine sed)Order ed By: Dr. Alvarado on 08-30-2022 Mucus Ql (Urine sed) 0 SEEN /hpf [facility] Nitrite Test strip Ql (U)Ord ered By: Dr. Alvarado on 08-30-2022 Nitrite Ql (U) Negative Negative [facility] No Panel InformationOrdered By: Dr. Alvarado on 08-30-2022 Estimated Creatinine Clearance Calc 51.29 ml/min [facility] Estimated GFR (MDRD) Amer 73 mL/min >60 [facility] Comment on above: GFR Calc Estimated GFR (MDRD) Non-Af Amer 60 mL/min >60 [facility] Comment on above: Non- GFR Calc Platelets bldOrdered By: Dr. Alvarado on 08-30-2022 Platelets (Bld) [#/Vol] See comment 150-450 [facility] Comment on above: Please note: For thi s sample, a platelet estimate is provided rather than a platelet count due to platelet clumping. Other parameters associated with this sample are not affected by platelet clumping. If a more accurate platelet count is required, a redraw of the patient will be necessary. Protein Test strip Ql (U)Ord ered By: Dr. Alvarado on 08-30-2022 Protein Ql (U) Negative Negative [facility] Serum or plasma albumin opal urement (mass/volume)Ordered By: Dr. Alvarado on 08-30-2022 Albumin [Mass/Vol] 3.2 g/dL 3.2-5.0 [facility] Serum or plasma albumin/glob ulin mass ratioOrdered By: Dr. Alvarado on 08-30-2022 Albumin/Globulin [Mass ratio] 1.0 {ratio} 0.9-2.4 [facility] Serum or plasma calcium opal urement (mass/volume)Ordered By: Dr. Alvarado on 08-30-2022 Calcium [Mass/Vol] 8.2 mg/dL 8.5-10.1 [facility] Serum or plasma creatinine m easurement (mass/volume)Ordered By: Dr. Alvarado on 08-30-2022 Creatinine [Mass/Vol] 0.96 mg/dL 0.55-1.02 [facility] Comment on above: The validity of the calculated GFR & GFRAA in patients over 70 years has not been determined. Clinical correlation is essential. Serum or plasma urea nitroge n measurement (mass/volume)Ordered By: Dr. Alvarado on 08-30-2022 Urea nitrogen [Mass/Vol] 16 mg/dL 7-18 [facility] Squamous epithelial cells de tection in urine sediment by light microscopyOrdered By: Dr. Alvarado on 08-30-2022 Epithelial cells.squamous LM Ql (Urine sed) 0 SEEN /hpf 5-10 [facility] Thin prep Papanicolaou smear with manual screeningOrdered By: Dr. Alvarado on 08-30-2022 Thin prep Papanicolaou smear with manual screening 715 U/L 15-37 [facility] Comment on above: Moderate Hemolysis, Result may be falsely increased. Thin prep Papanicolaou smear with manual screening 8 5-15 [facility] Urine blood detectionOrdered By: Dr. Alvarado on 08-30-2022 RBC Ql (U) Negative Negative [facility] RBC Ql (U) 0 SEEN /hpf 0-5 [facility] Urine clarityOrdered By: Dr. Alvarado on 08-30-2022 Clarity (U) Clear Clear [facility] Urine color determinationOrd ered By: Dr. Alvarado on 08-30-2022 Color (U) Yellow Yellow [facility] Urine glucose detectionOrder ed By: Dr. Alvarado on 08-30-2022 Glucose Ql (U) Normal mg/dl Normal [facility] Urine leukocyte esterase det ection by dipstickOrdered By: Dr. Alvarado on 08-30-2022 Leukocyte esterase Test strip Ql (U) 25 /ul Negative [facility] Urine pHOrdered By: Dr. Sushant rashid on 08-30-2022 pH (U) 8.0 [pH] 5.0 - 8.0 [facility] Urine sediment bacteria coun t by microscopy (number/high power field)Ordered By: Dr. Alvarado on 08-30-2022 Bacteria LM.HPF (Urine sed) [#/Area] 0 /[HPF] None Seen [facility] Urine specific gravity measu rementOrdered By: Dr. Alvarado on 08-30-2022 Specific gravity (U) [Rel density] 1.015 1.002-1.030 [facility] Urobilinogen Auto test strip Ql (U)Ordered By: Dr. Alvarado on 08-30-2022 Urobilinogen Ql (U) Normal mg/dl Normal [facility] Absolute lymphocyte countOrd ered By: Sarah Kasper on 05-21-2022 Lymphocytes Auto (Unsp spec) [#/Vol] 2.16 10*3/uL 0.83-4.51 [facility] Basophil percentageOrdered B y: Sarah Kasper on 05-21-2022 Basophils/100 WBC (Bld) 0.6 % 0-1 [facility] Chloride [Moles/Vol] 105 mmol/L 98-107 [facility] Eosinophils/100 WBC (Bld) 2.1 % 0-5 [facility] Glucose [Mass/Vol] 103 mg/dL 74-106 [facility] Comment on above: Fasting Glucose resu lt from 100 to 125 mg/dL suggests IMPAIRED HOMEOSTASIS per A.D.A. criteria. Neutrophils (Bld) [#/Vol] 4.0 10*3/uL 2.0-7.7 [facility] Neutrophils/100 WBC (Bld) 58.3 % 47-70 [facility] Potassium [Moles/Vol] 3.8 mmol/L 3.5-5.1 [facility] Sodium [Moles/Vol] 143 mmol/L 136-145 [facility] WBC (Bld) [#/Vol] 6.8 10*3/uL 4.4-11.0 [facility] Blood erythrocytes count (nu mber/volume)Ordered By: Sarah Kasper on 05-21-2022 RBC (Bld) [#/Vol] 4.58 10*6/uL 4.2-5.4 [facility] Blood hemoglobin measurement (mass/volume)Ordered By: Sarah Kasper on 05-21-2022 Hemoglobin (Bld) [Mass/Vol] 13.0 g/dL 12.0-15.0 [facility] Blood lymphocytes/100 leukoc ytesOrdered By: Sarah Kasper on 05-21-2022 Lymphocytes/100 WBC (Bld) 31.7 % 19-41 [facility] Blood monocytes/100 leukocyt esOrdered By: Sarah Kasper on 05-21-2022 Monocytes/100 WBC (Bld) 7.0 % 0-10 [facility] Blood platelet mean volumeOr dered By: Sarah Kasper on 05-21-2022 Platelet mean volume (Bld) [Entitic vol] 12.1 fL 6.2-12.0 [facility] Determination of erythrocyte mean corpuscular volume (MCV)Ordered By: Sarah Kasper on 05-21-2022 MCV (RBC) [Entitic vol] 91.9 fL 81-99 [facility] Hematocrit Auto (Bld) [Volum e fraction]Ordered By: Sarah Kasper on 05-21-2022 Hematocrit (Bld) [Volume fraction] 42.1 % 37-47 [facility] Laboratory - Chemistry and C hemistry - challengeOrdered By: Sarah Kasper on 05-21-2022 CO2 [Moles/Vol] 32.0 mmol/L 21.0-32.0 [facility] Natriuretic peptide B (Bld) [Mass/Vol] 16.5 pg/mL 0-100 [facility] Urea nitrogen/Creatinine [Mass ratio] 24.1 mg/mg 10-20 [facility] Laboratory - Hematology and Cell countsOrdered By: Sarah Kasper on 05-21-2022 Erythrocyte distribution width (RBC) [Entitic vol] 46.6 fL 35.1-43.9 [facility] Erythrocyte distribution width (RBC) [Ratio] 13.7 % 11.6-14.6 [facility] Immature granulocytes/100 WBC (Bld) 0.300 % 0.0-0.9 [facility] Comment on above: IG% - Immature Granu locytes (promyelocytes, myelocytes and metamyelocytes) > 1% indicates that a LEFT SHIFT is Present. MCH (RBC) [Entitic mass] 28.4 pg 27.0-32.0 [facility] Nucleated RBC/100 WBC (Bld) [Ratio] 0 % 0-5 [facility] MCHC Auto (RBC) [Mass/Vol]Or dered By: Sarah Kasper on 05-21-2022 MCHC (RBC) [Mass/Vol] 30.9 g/dL 32-36 [facility] No Panel InformationOrdered By: Sarah Kasper on 05-21-2022 Estimated GFR (MDRD) Amer 77 mL/min >60 [facility] Comment on above: GFR Calc Estimated GFR (MDRD) Non-Af Amer 63 mL/min >60 [facility] Comment on above: Non- GFR Calc Platelets bldOrdered By: Jozef Kasper on 05-21-2022 Platelets (Bld) [#/Vol] 177 10*3/uL 150-450 [facility] Serum or plasma calcium opal urement (mass/volume)Ordered By: Sarah Kasper on 05-21-2022 Calcium [Mass/Vol] 9.1 mg/dL 8.5-10.1 [facility] Serum or plasma creatinine m easurement (mass/volume)Ordered By: Sarah Kasper on 05-21-2022 Creatinine [Mass/Vol] 0.91 mg/dL 0.55-1.02 [facility] Comment on above: The validity of the calculated GFR & GFRAA in patients over 70 years has not been determined. Clinical correlation is essential. Serum or plasma urea nitroge n measurement (mass/volume)Ordered By: Sarah Kasper on 05-21-2022 Urea nitrogen [Mass/Vol] 22 mg/dL 7-18 [facility] Thin prep Papanicolaou smear with manual screeningOrdered By: Sarah Kasper on 05-21-2022 Thin prep Papanicolaou smear with manual screening 6 5-15 [facility] HISTORY PHYSICALon HISTORY PHYSICAL HNO ID: [id number] Author: Gregg Hendrix MD Service: Pain Management Author Type: Physician Type: HANDP Filed: 06/19/2021 1:59 PM Note Text: HISTORY AND PHYSICAL EXAMINATION PATIENT NAME: Kate Oreilly DATE of SERVICE: 06/19/2021 PAST ANESTHESIA HISTORY: No history of adverse event PAST MEDICAL HISTORY Diagnosis Date - Diverticulosis of colon (without mention of hemorrhage) - Family history of malignant neoplasm of gastrointestinal tract - Head injury 09/30 trip fall - HTN (hypertension) - Hypothyroidism - Internal hemorrhoids without mention of complication - SREEKANTH (obstructive sleep apnea) - Other and unspecified hyperlipidemia - Pneumonia 07/2011 - Snoring - Trigeminal neuralgia PAST SURGICAL HISTORY Procedure Laterality Date - BX OF BREAST; INCISIONAL Left LATE 90'S Bx of breast, incisional - COLONOSCOP W/ OR W/O [facility] SPEC 03/12/08 - COLONOSCOP W/ OR W/O [facility] SPEC 02/05/14 Colonoscopy - COLONOSCOP W/ OR W/O [facility] SPEC 05/20/15 Colonoscopy - COLONOSCOP W/ OR W/O [facility] SPEC 01/23/2019 Colonoscopy - PAST SURGICAL HISTORY OF 09/03/2010 CRANIECTOMY EXCISON TUMOR, INFRATENTORIAL OR POST FOSSA, MENIGIOMA - PAST SURGICAL HISTORY OF 05/06/2011 right MVD fro [place] - PAST SURGICAL HISTORY OF 04/2019 Trigeminal neuralgia surgery. Brain leak in August 2019 - REMOVAL OF TONSILS,<12 Y/O A CHILD Tonsillectomy - REMV CATARACT EXTRACAP,INSERT LENS 2012 Cataract Extraction with PC IOL - REMV CATARACT EXTRACAP,INSERT LENS 2012 Cataract Extraction with PC IOL Prior to Admission medications as of 06/19/21 1258 Medication Sig Last Dose Taking HYDROcodone-acetaminophen (NORCO) 5-325 mg per tablet 06/18/2021 at 2100 Yes ondansetron (ZOFRAN) 4 mg tablet 06/18/2021 at 2100 Yes losartan (COZAAR) 100 mg tablet 06/19/2021 at 0830 Yes meloxicam (MOBIC) 7.5 mg tablet Take 1 tablet by mouth once daily. Take with food. 06/13/2021 Yes furosemide (LASIX) 40 mg tablet Take 1 tablet by mouth twice daily. 06/18/2021 at 2000 Yes levothyroxine (SYNTHROID) 100 mcg tablet Take 1 tablet by mouth once daily. Take on empty stomach 06/19/2021 at 0830 Yes pregabalin (LYRICA) 100 mg capsule Take 1 capsule by mouth four times daily for [address] Yadav prescribes. 06/18/2021 at 2100 Yes montelukast (SINGULAIR) 10 mg tablet Take 1 tablet by mouth daily at bedtime. 06/18/2021 at 2100 Yes tiZANidine (ZANAFLEX) 4 mg tablet predniSONE (DELTASONE) 20 mg tablet atenolol (TENORMIN) 50 mg tablet Take 1 tablet by mouth once daily. ALLERGIES Allergen Reactions - Amoxicillin Rash - Carbamazepine Rash - Codeine Vomiting - Percocet [Oxycodone* Vomiting - Tegretol [Carbamaze* Vomiting Dizziness, couldn't see straight Skin reaction when went in sun - Tramadol Vomiting - Vicodin [Hydrocodon* Vomiting - Vioxx [Rofecoxib] Rash - Demerol [Meperidine* Intolerance - Neurontin [Gabapent* Intolerance Dizziness, feeling like I couldn't work - Topamax [Topiramate] Intolerance Flushed, red skin - Fentanyl GI Upset Objective Subjective HPI: Kate Oreilly is here for the pain mangement procedure. The patient presents with persistent pain complaints. Kate Oreilly denies any interval changes or new pain complaints or focal neurologic deficits. PAST MEDICAL HISTORY Diagnosis Date - Diverticulosis of colon (without mention of hemorrhage) - Family history of malignant neoplasm of gastrointestinal tract - Head injury 09/30 trip fall - HTN (hypertension) - Hypothyroidism - Internal hemorrhoids without mention of complication - SREEKANTH (obstructive sleep apnea) - Other and unspecified hyperlipidemia - Pneumonia 07/2011 - Snoring - Trigeminal neuralgia PAST SURGICAL HISTORY Procedure Laterality Date - BX OF BREAST; INCISIONAL Left LATE Bx of breast, incisional - COLONOSCOP W/ OR W/O [facility] 03/12/08 - COLONOSCOP W/ OR W/O [facility] 02/05/14 Colonoscopy - COLONOSCOP W/ OR W/O [facility] 05/20/15 Colonoscopy - COLONOSCOP W/ OR W/O [facility] 01/23/2019 Colonoscopy - PAST SURGICAL HISTORY OF 09/03/2010 CRANIECTOMY EXCISON TUMOR, INFRATENTORIAL OR POST FOSSA, MENIGIOMA - PAST SURGICAL HISTORY OF 05/06/2011 right [place]VD fro [place] - PAST SURGICAL HISTORY OF 04/2019 Trigeminal neuralgia surgery. Brain leak in August 2019 - REMOVAL OF TONSILS,<12 Y/O A CHILD Tonsillectomy - REMV CATARACT EXTRACAP,INSERT LENS 2012 Cataract Extraction with PC IOL - REMV CATARACT EXTRACAP,INSERT LENS 2012 Cataract Extraction with PC IOL Social History Tobacco Use - Smoking status: Never Smoker - Smokeless tobacco: Never Used Vaping Use - Vaping Use: Never used Substance Use Topics - Alcohol use: No - Drug use: No FAMILY HISTORY Problem Relation Age of Onset - Alzheimer's Disease Mother - Heart Mother pacemaker - Stroke Mother - Heart Father VALVE REPLACEMENT,PACE MAKER - Heart Sister - Heart Broth (more content not included)... [facility] OPERATIVE NOon 06-19-2021 OPERATIVE NO HNO ID: [id number] Author: Gregg Hendrix MD Service: Pain Management Author Type: Physician Type: Operative Report Filed: 06/19/2021 2:34 PM Note Text: PATIENT NAME: Kate Oreilly SERVICE DATE: 06/19/2021 PROCEDURE NOTE PREOPERATIVE DIAGNOSIS(ES) Lumbar radiculopathy Lumbar disc displacement Lumbar canal stenosis without neurogenic claudication Lumbar DDD POSTOPERATIVE DIAGNOSIS(ES): Same PROCEDURE: Right L4-5 lumbar transforaminal epidural steroid injection under fluoroscopy. ANESTHESIA: Conscious sedation with Versed 3mg IV INDICATIONS: The patient presents for lumbar transforaminal epidural steroid injection. Since the last assessment, the patient denies any new pain complaints and denies any focal neurological deficits. The risks and benefits of the procedure were discussed. Specifically, the risks of bleeding, infection, inadvertent dural puncture, spinal heaches, vasovagal reaction, epidural hematoma, partial or permanent nerve injury were covered. The potential side effects of medications used in procedures including increase in lumbar pain, headaches, facial redness or warmth (flushing), anxiety or mood swings, sleeplessness, fever, high blood sugar, brief reduction in immunity were discussed. The patient expressed understanding of potential risks and wishes to proceed with the procedure. PROCEDURE NOTE: The patient was brought to the operating room. The patient was placed in the prone position with pressure points protected. Continuous hemodynamic monitoring was initiated including blood pressure, EKG, and pulse oximetry. Supplemental oxygen per nasal canula was started. The intravenous medication was administered incrementally to provide conscious sedation and to allow the patient to remain comfortable and conversant throughout the procedure. The lower back was prepped in sterile fashion. Upon AP projection under a fluoroscopy, the lumbar L4-5 level was identified. The fluoroscopy was rotated in oblique projection to identify the neuroforamen. Entry point was marked and anesthetized with 2ml of 0.25% Marcaine. This was followed by insertion of a 5 inch spinal needle, which was inserted and advanced towards the 12 o' clock of the L4-5 neuroforamen. Once the Needle tip contacted the inferior lateral aspect of the pedicle, aspiration was performed which was negative for blood or CSF. This was followed by injection of 0.5 ml of Omnipaque 300, which revealed a spread through the neuroforamen into the anterior epidural space. There was no evidence of intravascular or intrathecal flow. This was then followed by a total injection of 2 mL of 0.25% Marcaine with 40 mg of Depomedrol. The patient tolerated the procedure well. The needle was removed intact. Dry dressing was placed over the injection site. The patient was taken to the recovery room in stable condition. EBL: nil Start time: 2:22 PM End time: 2:30 PM I was present the entire time and personally performed the procedure. SIGNATURE: Gregg Hendrix MD DATE: June 19, 2021 TIME: 2:[address] [facility] XR FLUOROSCOPYon 06-19-2021 XR FLUOROSCOPY * * *Final Report* * * DATE OF EXAM: Jun 19 2021 2:32PM [facility] [id number] - XR FLUOROSCOPY / PROCEDURE REASON: pain * * * * Physician Interpretation * * * * INDICATION: pain TECHNIQUE: Fluoroscopy with 7 views of the lower lumbar spine Fluoroscopic Radiation Summary: Plane A, Air Kerma: 5.7 mGy Dose Area Product (DAP): 0.0 mGy*cm^2 Fluoro time: 0:18 min:sec FINDINGS/ IMPRESSION: A needle with injected contrast is seen in the right L4-5 foramen. Please refer to the performing LIP's report. Curing Machine Operator: GEMA Transcribe Date/Time: Jun 19 2021 2:38P Dictated by : JOON BECKHAM MD This examination was interpreted and the report reviewed and electronically signed by: JOON BECKHAM MD on Jun 19 2021 2:38PM EST [id number] [facility] PROGRESSon 11-02-2019 PROGRESS HNO ID: [id number] Author: Milli Juárez Service: ? Author Type: Physician Type: Progress Notes Filed: 11/02/2019 12:31 PM Note Text: NEUROSURGERY TELEPHONE VISIT PROGRESS NOTE Milli Juárez MD This is a telephone encounter initiated for an established patient, parent or guardian not originating from a related Evaluation AND Management service provided within the previous 7 days nor leading to an Evaluation AND Management service or procedure within the next 24 hours or soonest available appointment. Date of visit: November 02, 2019 Patient Name: Ms.Dorothy Paty Oreilly Date of : 1945 Current Age: [age] year old Sex: female MRN/E# [id number] Last Office Visit: 09/12/2019 Kate Oreilly has consented to this telephone encounter. Persons Present: patient Chief Complaint/Reason: Patient presents with: Follow Up HPI: Kate Oreilly is having her 3 month post operative visit from repair of pseudomeningocele to review imaging. Her visit today is via telephone due to COVID-19 restrictions. At her 3 week post op appointment with Saeid Toro APRN. CNP, she stated her right trigeminal nerve pain had recurred. She had tried gabapentin in the past but was intolerant of the side effect of dizziness. She reported the topiramate was not helping her pain at all. Since her last visit, she has been having clicking of her jaw (TMJ) with talking and chewing. Her just a few days ago and had been sick for the last 2.5 months. She has been a fair amount of pain but has not been able to get the injections she wanted due to the illness and of her . She has no new swelling behind her ear and no bladder or gait instability. She states she has been having word finding difficulties but thinks this may be stress related. PREVIOUS SURGERY: SURGERY #1: Right revision of Microvascular decompression (MVD) of trigeminal nerve - retrosigmoid approach - on 05/12/2019 SURGERY #2: Right retrosigmoid repair of pseudomeningocele; cranioplasty with mesh repair on 08/03/[address] Harrison PAST MEDICAL HISTORY Diagnosis Date - Diverticulosis of colon (without mention of hemorrhage) - Family history of malignant neoplasm of gastrointestinal tract - Head injury 09/30 trip fall - HTN (hypertension) - Hypothyroidism - Internal hemorrhoids without mention of complication - SREEKANTH (obstructive sleep apnea) - Other and unspecified hyperlipidemia - Pneumonia 07/2011 - Snoring - Trigeminal neuralgia PAST SURGICAL HISTORY Procedure Laterality Date - BX OF BREAST; INCISIONAL Left LATE Bx of breast, incisional - COLONOSCOP W/ OR W/O [facility] 03/12/08 - COLONOSCOP W/ OR W/O [facility] SPEC 02/05/14 Colonoscopy - COLONOSCOP W/ OR W/O [facility] SPE[facility] 05/20/15 Colonoscopy - COLONOSCOP W/ OR W/O [facility] 01/23/2019 Colonoscopy - PAST SURGICAL HISTORY OF 09/03/2010 CRANIECTOMY EXCISON TUMOR, INFRATENTORIAL OR POST FOSSA, MENIGIOMA - PAST SURGICAL HISTORY OF 05/06/2011 [place]VD fro [place] - REMOVAL OF TONSILS,<12 Y/O A CHILD Tonsillectomy - REMV CATARACT EXTRACAP,INSERT LENS 2012 Cataract Extraction with PC IOL - REMV CATARACT EXTRACAP,INSERT LENS 2012 Cataract Extraction with PC IOL FAMILY HISTORY Problem Relation Age of Onset - Alzheimer's Disease Mother - Heart Mother pacemaker - Stroke Mother - Heart Father VALVE REPLACEMENT,PACE MAKER - Heart Sister - Heart Brother - Heart Brother - Colon Cancer Sister - Breast Cancer Sister - Breast Cancer Daughter ALLERGIES Allergen Reactions - Amoxicillin Rash - Carbamazepine Rash - Codeine Vomiting - Percocet [Oxycodone* Vomiting - Tegretol [Carbamaze* Vomiting Dizziness, couldn't see straight Skin reaction when went in sun - Tramadol Vomiting - Vicodin [Hydrocodon* Vomiting - Vioxx [Rofecoxib] Rash - Demerol [Meperidine* Intolerance - Neurontin [Gabapent* Intolerance Dizziness, feeling like I couldn't work - Topamax [Topiramate] Intolerance Flushed, red skin - Fentanyl GI Upset Current Outpatient Medications Medication Sig Dispense Refill - pregabalin (LYRICA) 100 mg capsule Take 1 capsule by mouth three times daily for 90 days. 90 capsule 2 - Hydrochlorothiazide 12.5 mg capsule Take 1 capsule by mouth once daily. As needed for edema 30 capsule 1 - acetaminophen (TYLENOL) 500 mg tablet Take 500 mg by mouth every 6 hours as needed for Pain. - levothyroxine (SYNTHROID) 75 mcg tablet Take 1 tablet by mouth once daily. 90 tablet 3 - atenolol (TENORMIN) 50 mg tablet Take 1 tablet by mouth once daily. 90 tablet 3 No current facility-administered medications for this visit. REVIEW OF SYSTEMS Review of Systems HENT: Positive for dental problem. Cardiovascular: Positive for leg swelling. Neurological: Positive for speech difficulty. + right face pain, clicking of jaw with talking and chewing Data Reviewed: IMAGING STUDIES: CT brain performed on 10/27/2019. Findings were noted as: IMPRESSION: 1. ?No acute process identified. 2. ?Bilateral occipital postoperative changes as discussed. Assessment: This is a 74 y/o female who is 4 months post op from a pseudomeningocele repair from her prior right MVD surgery done in April. Plan: - plan for follow up in December to see how symptoms are doing - will plan for 1 year follow up in April for the microvascular decompression - okay to start lifting more items - instructed that if word finding difficulties become more pronounced to go to the emergency room for evaluation Total Time Spent: 5-10 minutes Milli Juárez MD [facility] CT BRAIN WO IVCONon 10-27-19 CT BRAIN WO IVCON * * *Final Report* * * DATE OF EXAM: Oct 27 2019 10:39AM A1C 0504 - CT BRAIN WO IVCON / PROCEDURE REASON: multiple diagnoses * * * * Physician Interpretation * * * * EXAMINATION: CT BRAIN WO IVCON CLINICAL HISTORY: Pseudomeningocele Atypical facial pain s/p op 08/03/19, follow up, c/o rt jaw pain, hx of MVD of Trigeminal nerve TECHNIQUE: Serial axial images without IV contrast were obtained from the vertex to the foramen magnum. MQ: [id number] CT Dose-Length Product (DLP): 794.52 mGy*cm CT Dose Reduction Employed: No dose reduction techniques were required COMPARISON: Multiple prior studies with the most recent performed 08/08/2019 RESULT: As seen previously, the patient is status post bilateral retromastoid occipital craniectomy with placement of metallic mesh. Previously noted foci of air at the right craniectomy site are no longer apparent. Also, complete resolution of the overlying pseudomeningocele depicted on more remote studies. Region of calcification near the right cerebellopontine angle cistern again noted, possibly related to prior trigeminal neuralgia surgery. There is a persistent low-density subdural fluid collection along the bilateral cerebellum which is unchanged. Previously noted extra-axial CSF along the frontal regions is significantly diminished. There is no hemorrhage, acute infarct or mass. No midline shift is depicted. No acute calvarial abnormality. Paranasal sinuses are clear. IMPRESSION: 1. No acute process identified. 2. Bilateral occipital postoperative changes as discussed. Curing Machine Operator: GEMA Transcribe Date/Time: Oct 27 2019 10:43A Dictated by : TRINITY CANDELARIO MD This examination was interpreted and the report reviewed and electronically signed by: TRINITY CANDELARIO MD on Oct 27 2019 10:52AM EST Normal [facility] OBSOLETEon 09-21-2019 OBSOLETE Refill (NUAGAK) -- KATE OREILLY ([id number]) 1945 F Date Time Provider Department 09/21/19 SAEID TORO (APPLE CHECKER.VALUE STREAM MANAGER) BEN During your visit today, we recorded the following information about you: Saeid Toro APRN.CNP 09/22/2019 8:54 AM Signed Thanks Susie! Refilled as requested. Okay for refill on pain medication. Patient is taking for pain and is due at this time. OARRS reviewed. All prescriptions have been APPROPRIATELY filled. No suspicious activity was identified. Prescription approved, e-prescribed. Saeid Toro APRN, VALUE STREAM MANAGER Neurosurgery Nurse Practitioner Allergies As of Date: 09/21/2019 Noted Allergy Reaction AMOXICILLIN 03/30/2005 2 - Rash CARBAMAZEPINE 11/10/2018 2 - Rash CODEINE 05/20/2011 11 - Vomiting PERCOCET (OXYCODONE-ACETAMINOPHEN)0 09/15/2010 11 - Vomiting TEGRETOL (CARBAMAZEPINE ANALOGUES)04/17/2009 11 - Vomiting Comments: Dizziness, couldn't see straight Skin reaction when went in sun TRAMADOL 09/15/2010 11 - Vomiting VICODIN (HYDROCODONE-ACETAMINOPHE* 09/15/2010 11 - Vomiting VIOXX (ROFECOXIB) 03/30/2005 2 - Rash DEMEROL (MEPERIDINE HCL) 03/30/2005 5 - Intolerance NEURONTIN (GABAPENTIN) 04/17/2009 5 - Intolerance Comments: Dizziness, feeling like I couldn't work TOPAMAX (TOPIRAMATE) 05/22/2019 5 - Intolerance Comments: Flushed, red skin FENTANYL 08/16/2019 8 - GI Upset Date Reviewed: 08/16/2019 Reviewed by: Chloe (Rn) Lashaun - Fully Assessed Reason for Visit: Refill Request [94] Visit Diagnosis:Trigeminal neuralgia [G50.0] Order(s):pregabalin (LYRICA) 75 mg capsuleTake 1 capsule by mouth three times daily for 30 days.Disp: 90 capsuleRfl: 0 Prescriptions as of 09/21/2019 Sig: PREGABALIN 75 MG CAPSULE Take 1 capsule by mouth three* HYDROCHLOROTHIAZIDE 12.5 MG C* Take 1 capsule by mouth once * MONTELUKAST 10 MG TABLET Take 1 tablet by mouth daily * TOPIRAMATE 50 MG TABLET Take 1 tablet by mouth daily * TOPIRAMATE 25 MG TABLET Take 3 tablets by mouth daily* IBUPROFEN 400 MG TABLET Take 1 tablet by mouth three * ACETAMINOPHEN 500 MG TABLET Take 500 mg by mouth every 6 * LEVOTHYROXINE 75 MCG TABLET Take 1 tablet by mouth once d* ATENOLOL 50 MG TABLET Take 1 tablet by mouth once d* Problem List As Of Date 09/21/2019 Noted Resolved CHRONIC SINUSITIS NEC [J32.8] 05/18/2005 Trigeminal neuralgia [G50.0] 05/18/2005 More... FAMILY HISTORY OF GI NEOPLASM [Z80.0] 10/10/2007 Hyperlipidemia, mixed [E78.2] 10/10/2007 Hypothyroidism [E03.9] 10/11/2007 More... SLEEP APNEA NOS [G47.30] 12/03/2008 Vitamin D deficiency [E55.9] 03/21/2010 Meningioma [D32.9] 07/14/2010 Essential hypertension, benign [I10] 08/11/2010 More... Low back pain [M54.5] 11/13/2011 Obesity, Class I, BMI 30-34.9 [E66.9] 05/15/2019 Pseudomeningocele [G96.19] 07/27/2019 More... Prescriptions ordered this encounter Disp Refills Start End PREGABALIN 75 MG CAPSULE 90 c* 0 09/22/2019 10/22/2019 Route: ORAL Sig: Take 1 capsule by mouth three times daily for 30 days. Medications Discontinued During This Encounter pregabalin (LYRICA) 75 mg capsule 90 c* 0 08/28/2019 09/22/2019 Route: ORAL Sig: Take 1 capsule by mouth three times daily for 30 days. Disc: Reason for discontinue is not on file. Encounter Status:Closed by SAEID TORO on 09/22/19 [facility] Evette 09-12-2019 MAKAYLA Telephone (YARELYAGAK) -- KATE OREILLY ([id number]) 1945 F Date Time Provider Department 09/12/19 SAEID TORO (APPLE CHECKER.[place]) BEN During your visit today, we recorded the following information about you: Saeid Toro APRN.CNP 09/12/2019 12:43 PM Signed Phone call with patient regarding swelling of hands and feet. This can be a side effect of pregabalin. She reports that she feels the pregabalin 75 mg TID is helping her pain and she does not want to lower the dose. She denies chest pain, shortness of breath, cough, nausea, vomiting. She wishes to proceed with scheduling with Pain Management (Dr. Yadav) even though she has not yet had the repeat CT Brain (due to Covid-19 pandemic). She asks that we send Dr. Yadav the results of the most recent CT Brain. She agrees to call to reschedule after ease of the Covid-19 pandemic restrictions. She agrees to cut back on the pregabalin if the swelling in her hands and feet worsen. Saeid Toro APRN, VALUE STREAM MANAGER Neurosurgery Nurse Practitioner Allergies As of Date: 09/12/2019 Noted Allergy Reaction AMOXICILLIN 03/30/2005 2 - Rash CARBAMAZEPINE 11/10/2018 2 - Rash CODEINE 05/20/2011 11 - Vomiting PERCOCET (OXYCODONE-ACETAMINOPHEN)0 09/15/2010 11 - Vomiting TEGRETOL (CARBAMAZEPINE ANALOGUES)04/17/2009 11 - Vomiting Comments: Dizziness, couldn't see straight Skin reaction when went in sun TRAMADOL 09/15/2010 11 - Vomiting VICODIN (HYDROCODONE-ACETAMINOPHE* 09/15/2010 11 - Vomiting VIOXX (ROFECOXIB) 03/30/2005 2 - Rash DEMEROL (MEPERIDINE HCL) 03/30/2005 5 - Intolerance NEURONTIN (GABAPENTIN) 04/17/2009 5 - Intolerance Comments: Dizziness, feeling like I couldn't work TOPAMAX (TOPIRAMATE) 05/22/2019 5 - Intolerance Comments: Flushed, red skin FENTANYL 08/16/2019 8 - GI Upset Date Reviewed: 08/16/2019 Reviewed by: Chloe (Rn) Lashaun - Fully Assessed Reason for Visit: Patient Update [1234] Prescriptions as of 09/12/2019 Sig: MONTELUKAST 10 MG TABLET Take 1 tablet by mouth daily * PREGABALIN 75 MG CAPSULE Take 1 capsule by mouth three* METOCLOPRAMIDE 5 MG TABLET Take 1 tablet by mouth three * TOPIRAMATE 50 MG TABLET Take 1 tablet by mouth daily * TOPIRAMATE 25 MG TABLET Take 3 tablets by mouth daily* IBUPROFEN 400 MG TABLET Take 1 tablet by mouth three * ACETAMINOPHEN 500 MG TABLET Take 500 mg by mouth every 6 * LEVOTHYROXINE 75 MCG TABLET Take 1 tablet by mouth once d* ATENOLOL 50 MG TABLET Take 1 tablet by mouth once d* Problem List As Of Date 09/12/2019 Noted Resolved CHRONIC SINUSITIS NEC [J32.8] 05/18/2005 Trigeminal neuralgia [G50.0] 05/18/2005 More... FAMILY HISTORY OF GI NEOPLASM [Z80.0] 10/10/2007 Hyperlipidemia, mixed [E78.2] 10/10/2007 Hypothyroidism [E03.9] 10/11/2007 More... SLEEP APNEA NOS [G47.30] 12/03/2008 Vitamin D deficiency [E55.9] 03/21/2010 Meningioma [D32.9] 07/14/2010 Essential hypertension, benign [I10] 08/11/2010 More... Low back pain [M54.5] 11/13/2011 Obesity, Class I, BMI 30-34.9 [E66.9] 05/15/2019 Pseudomeningocele [G96.19] 07/27/2019 More... Encounter Status:Closed by SAEID TORO on 09/12/19 [facility] OBSOLETEon 08-28-2019 OBSOLETE Refill (NUAGAK) -- KATE OREILLY ([id number]) 1945 F Date Time Provider Department 08/28/19 MILLI JUÁREZ During your visit today, we recorded the following information about you: Chloe Wilks RN 08/28/2019 1:50 PM Signed Patient called requesting the following refill Also requested to take TID instead of BID, due to some pain still at night when attempting to sleep. Refill(s) Requested: Pending Prescriptions Disp Refills PREGABALIN 75 MG CAPSULE 90 capsule 0 Sig: Take 1 capsule by mouth three times daily for 30 days. RUTHIE Class: C-V GLO: No ALLERGIES Allergen Reactions - Amoxicillin Rash - Carbamazepine Rash - Codeine Vomiting - Percocet [Oxycodone* Vomiting - Tegretol [Carbamaze* Vomiting Dizziness, couldn't see straight Skin reaction when went in sun - Tramadol Vomiting - Vicodin [Hydrocodon* Vomiting - Vioxx [Rofecoxib] Rash - Demerol [Meperidine* Intolerance - Neurontin [Gabapent* Intolerance Dizziness, feeling like I couldn't work - Topamax [Topiramate] Intolerance Flushed, red skin - Fentanyl GI Upset (home) [phone] (work) Last Visit date: 08/21/2019 Future appointment: 09/14/2019 The patients preferred pharmacy has been captured for this encounter? yes Request is for script(s) to be escript to pharmacy. Chloe Wilks RN Allergies As of Date: 08/28/2019 Noted Allergy Reaction AMOXICILLIN 03/30/2005 2 - Rash CARBAMAZEPINE 11/10/2018 2 - Rash CODEINE 05/20/2011 11 - Vomiting PERCOCET (OXYCODONE-ACETAMINOPHEN)0 09/15/2010 11 - Vomiting TEGRETOL (CARBAMAZEPINE ANALOGUES)04/17/2009 11 - Vomiting Comments: Dizziness, couldn't see straight Skin reaction when went in sun TRAMADOL 09/15/2010 11 - Vomiting VICODIN (HYDROCODONE-ACETAMINOPHE* 09/15/2010 11 - Vomiting VIOXX (ROFECOXIB) 03/30/2005 2 - Rash DEMEROL (MEPERIDINE HCL) 03/30/2005 5 - Intolerance NEURONTIN (GABAPENTIN) 04/17/2009 5 - Intolerance Comments: Dizziness, feeling like I couldn't work TOPAMAX (TOPIRAMATE) 05/22/2019 5 - Intolerance Comments: Flushed, red skin FENTANYL 08/16/2019 8 - GI Upset Date Reviewed: 08/16/2019 Reviewed by: Chloe (Cortez) Lashaun - Fully Assessed Reason for Visit: Refill Request [94] Visit Diagnosis:Trigeminal neuralgia [G50.0] Order(s):pregabalin (LYRICA) 75 mg capsuleTake 1 capsule by mouth three times daily for 30 days.Disp: 90 capsuleRfl: 0 Prescriptions as of 08/28/2019 Sig: PREGABALIN 75 MG CAPSULE Take 1 capsule by mouth three* METOCLOPRAMIDE 5 MG TABLET Take 1 tablet by mouth three * TOPIRAMATE 50 MG TABLET Take 1 tablet by mouth daily * TOPIRAMATE 25 MG TABLET Take 3 tablets by mouth daily* IBUPROFEN 400 MG TABLET Take 1 tablet by mouth three * ACETAMINOPHEN 500 MG TABLET Take 500 mg by mouth every 6 * LEVOTHYROXINE 75 MCG TABLET Take 1 tablet by mouth once d* ATENOLOL 50 MG TABLET Take 1 tablet by mouth once d* Problem List As Of Date 08/28/2019 Noted Resolved CHRONIC SINUSITIS NEC [J32.8] 05/18/2005 Trigeminal neuralgia [G50.0] 05/18/2005 More... FAMILY HISTORY OF GI NEOPLASM [Z80.0] 10/10/2007 Hyperlipidemia, mixed [E78.2] 10/10/2007 Hypothyroidism [E03.9] 10/11/2007 More... SLEEP APNEA NOS [G47.30] 12/03/2008 Vitamin D deficiency [E55.9] 03/21/2010 Meningioma [D32.9] 07/14/2010 Essential hypertension, benign [I10] 08/11/2010 More... Low back pain [M54.5] 11/13/2011 Obesity, Class I, BMI 30-34.9 [E66.9] 05/15/2019 Pseudomeningocele [G96.19] 07/27/2019 More... Prescriptions ordered this encounter Disp Refills Start End PREGABALIN 75 MG CAPSULE 90 c* 0 08/28/2019 09/27/2019 Route: ORAL Sig: Take 1 capsule by mouth three times daily for 30 days. Medications Discontinued During This Encounter pregabalin (LYRICA) 75 mg capsule 14 c* 0 08/21/2019 08/28/2019 Route: ORAL Sig: Take 1 capsule by mouth twice daily for 7 days. Disc: Reason for discontinue is not on file. Encounter Status:Closed by SAEID TORO on 08/28/19 [facility] CNOVyazmin 08-21-2019 CNOV Office Visit (NUAGAK ) -- KATE OREILLY ([id number]) 1945 F Date Time Provider Department 08/21/19 10:00 AM MUNA SAEID Jansen (APPLE CHECKER.VALUE STREAM MANAGER) YARELYCANDEJacob During your visit today, we recorded the following information about you: Saeid Jansen SANTA Toro.[place] 08/21/2019 11:53 AM Signed NEUROSURGERY POST-OP NOTE MD Saeid Orlando, SANTA, VALUE STREAM MANAGER Date of visit: August 21, 2019 Patient Name: Ms.Dorothy Paty Oreilly Date of : 1945 Current Age: [age] year old Sex: female MRN/E# [id number] Last Office Visit: 08/16/2019 SURGERY: * Right retrosigmoid repair of pseudomeningocele; cranioplasty with mesh repair on 08/03/[address] Harrison * Right revision of Microvascular decompression (MVD) of trigeminal nerve - retrosigmoid approach - on 05/12/2019 Pre-Surgical Symptoms: Pseudomeningocele 2 months after redo MVD on right: Right jaw, ear, and nose pain with intermittent numbness and headache Kate Oreilly is having her 3 week post operative visit from repair of pseudomeningocele. She is here to have sutures removed. She states her right trigeminal nerve pain has recurred. She has tried gabapentin in the past but was intolerant of the side effect of dizziness. She reports the topiramate is not helping her pain at all. Incision: healing nicely. No swelling, no erythema, sutures intact. Current Outpatient Medications Medication Sig Dispense Refill - metoclopramide HCl (REGLAN) 5 mg tablet Take 1 tablet by mouth three times daily as needed (nausea). 90 tablet 0 - topiramate (TOPAMAX) 50 mg tablet Take 1 tablet by mouth daily before breakfast. - topiramate (TOPAMAX) 25 mg tablet Take 3 tablets by mouth daily at bedtime. - ibuprofen (MOTRIN) 400 mg tablet Take 1 tablet by mouth three times daily as needed. - acetaminophen (TYLENOL) 500 mg tablet Take 500 mg by mouth every 6 hours as needed for Pain. - levothyroxine (SYNTHROID) 75 mcg tablet Take 1 tablet by mouth once daily. 90 tablet 3 - atenolol (TENORMIN) 50 mg tablet Take 1 tablet by mouth once daily. 90 tablet 3 No current facility-administered medications for this visit. Objective WOUND ASSESSMENT: Incision healing, sutures removed easily. Patient tolerated removal easily IMP: Kate Oreilly is a 74 year old female who is 3 weeks post op repair of pseudomeningocele. PLAN: 1. Sutures removed as requested. 2. Try pregabalin 75 mg BID. Discussed that she could have same / similar side effects with pregabalin as she had with gabapentin and discussed titration of dosing from once daily x 3 days to BID if tolerated. She and her daughter verbalize understanding and agreement. 3. Follow up with Dr. Juárez on 09/14/2019 as previously scheduled Discussed above with Ms Oreilly and her daughter, both of whom verbalize understanding and agreement with plan. All questions were answered with their verbalized satisfaction with responses. Saeid Toro APRN, VALUE STREAM MANAGER Neurosurgery Nurse Practitioner Referring Provider: KENN BEAUCHAMP [[id number]] Allergies As of Date: 08/21/2019 Noted Allergy Reaction AMOXICILLIN 03/30/2005 2 - Rash CARBAMAZEPINE 11/10/2018 2 - Rash CODEINE 05/20/2011 11 - Vomiting PERCOCET (OXYCODONE-ACETAMINOPHEN)0 09/15/2010 11 - Vomiting TEGRETOL (CARBAMAZEPINE ANALOGUES)04/17/2009 11 - Vomiting Comments: Dizziness, couldn't see straight Skin reaction when went in sun TRAMADOL 09/15/2010 11 - Vomiting VICODIN (HYDROCODONE-ACETAMINOPHE* 09/15/2010 11 - Vomiting VIOXX (ROFECOXIB) 03/30/2005 2 - Rash DEMEROL (MEPERIDINE HCL) 03/30/2005 5 - Intolerance NEURONTIN (GABAPENTIN) 04/17/2009 5 - Intolerance Comments: Dizziness, feeling like I couldn't work TOPAMAX (TOPIRAMATE) 05/22/2019 5 - Intolerance Comments: Flushed, red skin FENTANYL 08/16/2019 8 - GI Upset Date Reviewed: 08/16/2019 Reviewed by: Chloe (Rn) Lashaun - Fully Assessed Reason for Visit: Post-Op Visit [1236] Cmt: suture removal Primary Visit Diagnosis:Trigeminal neuralgia [G50.0] Order(s):pregabalin (LYRICA) 75 mg capsuleTake 1 capsule by mouth twice daily for 7 days.Disp: 14 capsuleRfl: 0 Prescriptions as of 08/21/2019 Sig: PREGABALIN 75 MG CAPSULE Take 1 capsule by mouth twice* METOCLOPRAMIDE 5 MG TABLET Take 1 tablet by mouth three * TOPIRAMATE 50 MG TABLET Take 1 tablet by mouth daily * TOPIRAMATE 25 MG TABLET Take 3 tablets by mouth daily* IBUPROFEN 400 MG TABLET Take 1 tablet by mouth three * ACETAMINOPHEN 500 MG TABLET Take 500 mg by mouth every 6 * LEVOTHYROXINE 75 MCG TABLET Take 1 tablet by mouth once d* ATENOLOL 50 MG TABLET Take 1 tablet by mouth once d* Problem List As Of Date 08/21/2019 Noted Resolved CHRONIC SINUSITIS NEC [J32.8] 05/18/2005 Trigeminal neuralgia [G50.0] 05/18/2005 More... FAMILY HISTORY OF GI NEOPLASM [Z80.0] 10/10/2007 Hyperlipidemia, mixed [E78.2] 10/10/2007 Hypothyroidism [E03.9] 10/11/2007 More... SLEEP APNEA NOS [G47.30] 12/03/2008 Vitamin D deficiency [E55.9] 03/21/2010 Meningioma [D32.9] 07/14/2010 Essential hypertension, benign [I10] 08/11/2010 More... Low back pain [M54.5] 11/13/2011 Obesity, Class I, BMI 30-34.9 [E66.9] 05/15/2019 Pseudomeningocele [G96.19] 07/27/2019 More... Prescriptions ordered this encounter Disp Refills Start End PREGABALIN 75 MG CAPSULE 14 c* 0 08/21/2019 08/28/2019 Route: ORAL Sig: Take 1 capsule by mouth twice daily for 7 days. Encounter Status:Closed by SAEID TORO on 08/21/19 [facility] PROGRESSon 08-21-2019 PROGRESS HNO ID: [id number] Author: Saeid Jansen (Vice Principal.Pipeline Technician) [facility]una Service: ? Author Type: Nurse Practitioner Type: Progress Notes Filed: 08/21/2019 11:53 AM Note Text: NEUROSURGERY POST-OP NOTE MD Saeid Orlando, APPLE CHECKER, VALUE STREAM MANAGER Date of visit: August 21, 2019 Patient Name: Ms.Dorothy Paty Oreilly Date of : 1945 Current Age: [age] year old Sex: female MRN/E# [id number] Last Office Visit: 08/16/2019 SURGERY: * Right retrosigmoid repair of pseudomeningocele; cranioplasty with mesh repair on 08/03/[address] Harrison * Right revision of Microvascular decompression (MVD) of trigeminal nerve - retrosigmoid approach - on 05/12/2019 Pre-Surgical Symptoms: Pseudomeningocele 2 months after redo MVD on right: Right jaw, ear, and nose pain with intermittent numbness and headache Kate Oreilly is having her 3 week post operative visit from repair of pseudomeningocele. She is here to have sutures removed. She states her right trigeminal nerve pain has recurred. She has tried gabapentin in the past but was intolerant of the side effect of dizziness. She reports the topiramate is not helping her pain at all. Incision: healing nicely. No swelling, no erythema, sutures intact. Current Outpatient Medications Medication Sig Dispense Refill - metoclopramide HCl (REGLAN) 5 mg tablet Take 1 tablet by mouth three times daily as needed (nausea). 90 tablet 0 - topiramate (TOPAMAX) 50 mg tablet Take 1 tablet by mouth daily before breakfast. - topiramate (TOPAMAX) 25 mg tablet Take 3 tablets by mouth daily at bedtime. - ibuprofen (MOTRIN) 400 mg tablet Take 1 tablet by mouth three times daily as needed. - acetaminophen (TYLENOL) 500 mg tablet Take 500 mg by mouth every 6 hours as needed for Pain. - levothyroxine (SYNTHROID) 75 mcg tablet Take 1 tablet by mouth once daily. 90 tablet 3 - atenolol (TENORMIN) 50 mg tablet Take 1 tablet by mouth once daily. 90 tablet 3 No current facility-administered medications for this visit. Objective WOUND ASSESSMENT: Incision healing, sutures removed easily. Patient tolerated removal easily IMP: Kate Oreilly is a 74 year old female who is 3 weeks post op repair of pseudomeningocele. PLAN: 1. Sutures removed as requested. 2. Try pregabalin 75 mg BID. Discussed that she could have same / similar side effects with pregabalin as she had with gabapentin and discussed titration of dosing from once daily x 3 days to BID if tolerated. She and her daughter verbalize understanding and agreement. 3. Follow up with Dr. Juárez on 09/14/2019 as previously scheduled Discussed above with Ms Oreilly and her daughter, both of whom verbalize understanding and agreement with plan. All questions were answered with their verbalized satisfaction with responses. Saeid Muna, APPLE CHECKER, VALUE STREAM MANAGER Neurosurgery Nurse Practitioner [facility] CNOVon 08-16-2019 CNOV Office Visit (BIGGJacob ) -- KATE OREILLY ([id number]) 1945 F Date Time Provider Department 08/16/19 1:15 PM MILLI JUÁREZ During your visit today, we recorded the following information about you: Milli Juárez MD 08/16/2019 3:35 PM Signed NEUROSURGERY POST-OP NOTE Milli Juárez MD Date of visit: August 16, 2019 Patient Name: Ms.Dorothy Paty Oreilly Date of : 1945 Current Age: [age] year old Sex: female MRN/E# [id number] Last Office Visit: 07/17/2019 SURGERY: Right retrosigmoid repair of pseudomeningocele; cranioplasty with mesh repair on 08/03/[address] Harrison Right revision of Microvascular decompression (MVD) of trigeminal nerve - retrosigmoid approach - on 05/12/2019 Pre-Surgical Symptoms: Pseudomeningocele 2 months after redo MVD on right: Right jaw, ear, and nose pain with intermittent numbness and headache Kate Oreilly is having her 2 week post operative (repair of pseudomeningocele) and her 3-month post operative (Revision of MVD of trigeminal nerve) visits. She feels that surgery did help the swelling she previously had, however, she is worried it is swelling again. She is unsure if she has a headache or incisional pain. She notes for the past 2 days she has had nausea without emesis. She denies any changes in vision or auditory disturbances. She denies any type of seizure activity. She does continue to have right sided jaw, ear, and nose pain. Incision: Sutures in place, dry, no swelling or active drainage. Current Outpatient Medications Medication Sig Dispense Refill - topiramate (TOPAMAX) 50 mg tablet Take 1 tablet by mouth daily before breakfast. - topiramate (TOPAMAX) 25 mg tablet Take 3 tablets by mouth daily at bedtime. - ibuprofen (MOTRIN) 400 mg tablet Take 1 tablet by mouth three times daily as needed. - acetaminophen (TYLENOL) 500 mg tablet Take 500 mg by mouth every 6 hours as needed for Pain. - levothyroxine (SYNTHROID) 75 mcg tablet Take 1 tablet by mouth once daily. 90 tablet 3 - atenolol (TENORMIN) 50 mg tablet Take 1 tablet by mouth once daily. 90 tablet 3 No current facility-administered medications for this visit. Facility-Administered Medications Ordered in Other Visits Medication Dose Route Frequency Provider Last Rate Last Dose - heparin 5,000 Units injection 5,000 Units SUBCUTANEOUS q 8 H Emily Parikh) LORA Martinez 5,000 Units at 08/08/19 1425 - Lip Protectant with Sunscreen SPF 15 1 application Stick (Blistex) 1 application TOPICAL PRN Emily Tenorio (Lora) LORA Martinez - ibuprofen 400 mg tab(s) (MOTRIN) 400 mg ORAL TID PRN Emily Parikh) LORA Martinez 400 mg at 08/08/19 1023 - metoclopramide HCl 10 mg injection (REGLAN) 10 mg INTRAVENOUS q 6 H PRN Emily Tenorio (Lora) LORA Martinez 10 mg at 08/03/19 1900 - calcium gluconate 4 g in NaCl 0.9% 250 mL 4 g INTRAVENOUS PRN Emily Tenorio (Lora) LORA Martinez - acetaminophen 650 mg tab(s) (TYLENOL) 650 mg ORAL q 4 H PRN Emily Tenorio (Lora) LORA Martinez 650 mg at 08/07/19 1949 - fentaNYL 50 mcg/mL 25-50 mcg injection (SUBLIMAZE) 25-50 mcg INTRAVENOUS q 1 H PRN Emily Tenorio (Lora) LORA Martinez 50 mcg at 08/04/19 0320 - topiramate 50 mg tab(s) (TOPAMAX) 50 mg ORAL DAILY (6 AM) Emily Parikh) LORA Martinez 50 mg at 08/08/19 0610 - topiramate 75 mg tab(s) (TOPAMAX) 75 mg ORAL DAILY AT 6 PM Emily Parikh) LORA Martinez 75 mg at 08/07/19 1734 - levothyroxine 75 mcg tab(s) (SYNTHROID) 75 mcg ORAL DAILY Emily D (Pa) Juan PA 75 mcg at 08/08/19 0610 - atenolol 50 mg tab(s) (TENORMIN) 50 mg ORAL DAILY Emily D (Pa) LORA Martinez 50 mg at 08/08/19 0847 - docusate sodium 100 mg cap(s) (COLACE) 100 mg ORAL BID Emily D (Pa) LORA Martinez 100 mg at 08/08/19 0847 Objective Review of Systems Constitutional: Positive for fatigue. Negative for chills, fever and unexpected weight change. HENT: Negative for congestion, ear discharge and sinus pressure. Eyes: Negative for pain and discharge. Respiratory: Positive for shortness of breath. Negative for cough and wheezing. Cardiovascular: Negative for chest pain, palpitations and leg swelling. Gastrointestinal: Positive for nausea. Negative for constipation, diarrhea and vomiting. Endocrine: Negative for cold intolerance and heat intolerance. Genitourinary: Negative for difficulty urinating, frequency and urgency. Musculoskeletal: Positive for gait problem. Negative for back pain and neck pain. Skin: Negative for rash and wound. Allergic/Immunologic: Negative for environmental allergies and food allergies. Neurological: Positive for weakness, numbness and headaches. Negative for dizziness, tremors, seizures, syncope, facial asymmetry, speech difficulty and light-headedness. Hematological: Does not bruise/bleed easily. Psychiatric/Behavioral: Negative for agitation. The patient is not nervous/anxious. Physical Exam HENT: Right Ear: Hearing normal. Left Ear: Hearing normal. Eyes: EOM are normal. No nystagmus. Neurological: She has normal strength. Psychiatric: Her speech is normal. Neurological Exam Mental Status Awake, alert and oriented to person, place and time. Recent and remote memory are intact. Speech is normal. Language is fluent with no aphasia. Attention and concentration are normal. Fund of knowledge is appropriate for level of education. Cranial Nerves CN II: Tested with correction. Right visual acuity: normal. Left visual acuity: normal. CN III, IV, : Extraocular movements intact bilaterally. No nystagmus. Right pupil: 3 mm. Round. Left pupil: 3 mm. Round. CN V: Right: Facial sensation is normal. Left: Facial sensation is normal on the left. CN VII: Right: There is no facial weakness. Left: There is no facial weakness. CN VIII: Right: Hearing is normal. Left: Hearing is normal. Bilateral hearing aids.. CN XII: Tongue midline without atrophy or fasciculations. Motor Strength is 5/5 throughout all four extremities. Sensory Light touch is normal in upper and lower extremities. Gait Casual gait is normal including stance, stride, and arm swing. WOUND ASSESSMENT: Sutures in place, dry, no swelling or active drainage. PAIN EVALUATION No data found in the last 1 encounters. Data Review: CT BRAIN WO IVCON on 08/08/2019: IMPRESSION: 1. ?No evidence hydrocephalus. ?No change in morphology or size of ventricular system. 2. Interval clearance of postoperative pseudomeningocele in the right retromastoid surgical site as well as decrease in postoperative air. 3. Stable bifrontal low density extra-axial fluid collections without significant mass effect on the subjacent cortex. ?Stable extra-axial fluid collections lateral portion of the posterior fossa bilateral, greater right side. ?Findings most likely related to low intracranial pressure/lumbar drain. Dictated by : ISAIAS MCGUIRE MD 74 y/o female who presents 2 weeks after her right retrosigmoid wound revision for CSF pseudomeningocele. - doing okay. Having some nausea recently. Wound is still flat but she had either trigeminal pain or inferior neck pain. - follow up early next week for suture removal - follow up in 4 weeks with repeat CTH to evaluate wound and for pseudomeningocele Milli Juárez MD Neurosurgery August 16, 2019 3:35 PM Referring Provider: KENN BEAUCHAMP [[id number]] Allergies As of Date: 08/16/2019 Noted Allergy Reaction AMOXICILLIN 03/30/2005 2 - Rash CARBAMAZEPINE 11/10/2018 2 - Rash CODEINE 05/20/2011 11 - Vomiting PERCOCET (OXYCODONE-ACETAMINOPHEN)0 09/15/2010 11 - Vomiting TEGRETOL (CARBAMAZEPINE ANALOGUES)04/17/2009 11 - Vomiting Comments: Dizziness, couldn't see straight Skin reaction when went in sun TRAMADOL 09/15/2010 11 - Vomiting VICODIN (HYDROCODONE-ACETAMINOPHE* 09/15/2010 11 - Vomiting VIOXX (ROFECOXIB) 03/30/2005 2 - Rash DEMEROL (MEPERIDINE HCL) 03/30/2005 5 - Intolerance NEURONTIN (GABAPENTIN) 04/17/2009 5 - Intolerance Comments: Dizziness, feeling like I couldn't work TOPAMAX (TOPIRAMATE) 05/22/2019 5 - Intolerance Comments: Flushed, red skin FENTANYL 08/16/2019 8 - GI Upset Date Reviewed: 08/16/2019 Reviewed by: Chloe (Cortez) Lashaun - Fully Assessed Primary Visit Diagnosis:Pseudomeningocel e [G96.19] Other Visit Diagnoses:Trigeminal neuralgia [G50.0] Atypical facial pain [G50.1] Order(s):CT BRAIN WO IVCON [[id number]] Order #: [id number] FUTURE metoclopramide HCl (REGLAN) 5 mg tabletTake 1 tablet by mouth three times daily as needed (nausea).Disp: 90 tabletRfl: 0 Prescriptions as of 08/16/2019 Sig: TOPIRAMATE 50 MG TABLET Take 1 tablet by mouth daily * TOPIRAMATE 25 MG TABLET Take 3 tablets by mouth daily* IBUPROFEN 400 MG TABLET Take 1 tablet by mouth three * ACETAMINOPHEN 500 MG TABLET Take 500 mg by mouth every 6 * LEVOTHYROXINE 75 MCG TABLET Take 1 tablet by mouth once d* ATENOLOL 50 MG TABLET Take 1 tablet by mouth once d* METOCLOPRAMIDE 5 MG TABLET Take 1 tablet by mouth three * Problem List As Of Date 08/16/2019 Noted Resolved CHRONIC SINUSITIS NEC [J32.8] 05/18/2005 Trigeminal neuralgia [G50.0] 05/18/2005 More... FAMILY HISTORY OF GI NEOPLASM [Z80.0] 10/10/2007 Hyperlipidemia, mixed [E78.2] 10/10/2007 Hypothyroidism [E03.9] 10/11/2007 More... SLEEP APNEA NOS [G47.30] 12/03/2008 Vitamin D deficiency [E55.9] 03/21/2010 Meningioma [D32.9] 07/14/2010 Essential hypertension, benign [I10] 08/11/2010 More... Low back pain [M54.5] 11/13/2011 Obesity, Class I, BMI 30-34.9 [E66.9] 05/15/2019 Pseudomeningocele [G96.19] 07/27/2019 More... Prescriptions ordered this encounter Disp Refills Start End METOCLOPRAMIDE 5 MG TABLET 90 t* 0 08/16/2019 09/15/2019 Route: ORAL Sig: Take 1 tablet by mouth three times daily as needed (nausea). Disposition: Return in about 4 weeks (around 09/13/2019). Follow-up and Disposition History Recorded Encounter Status:Closed by MILLI JUÁREZ MD on 08/16/19 [facility] PROGRESSon 08-16-2019 PROGRESS HNO ID: [id number] Author: Milli Juárez Service: ? Author Type: Physician Type: Progress Notes Filed: 08/16/2019 3:35 PM Note Text: NEUROSURGERY POST-OP NOTE Milli Juárez MD Date of visit: August 16, 2019 Patient Name: Ms.Dorothy Paty Oreilly Date of : 1945 Current Age: [age] year old Sex: female MRN/E# [id number] Last Office Visit: 07/17/2019 SURGERY: Right retrosigmoid repair of pseudomeningocele; cranioplasty with mesh repair on 08/03/[address] Harrison Right revision of Microvascular decompression (MVD) of trigeminal nerve - retrosigmoid approach - on 05/12/2019 Pre-Surgical Symptoms: Pseudomeningocele 2 months after redo MVD on right: Right jaw, ear, and nose pain with intermittent numbness and headache Kate Oreilly is having her 2 week post operative (repair of pseudomeningocele) and her 3-month post operative (Revision of MVD of trigeminal nerve) visits. She feels that surgery did help the swelling she previously had, however, she is worried it is swelling again. She is unsure if she has a headache or incisional pain. She notes for the past 2 days she has had nausea without emesis. She denies any changes in vision or auditory disturbances. She denies any type of seizure activity. She does continue to have right sided jaw, ear, and nose pain. Incision: Sutures in place, dry, no swelling or active drainage. Current Outpatient Medications Medication Sig Dispense Refill - topiramate (TOPAMAX) 50 mg tablet Take 1 tablet by mouth daily before breakfast. - topiramate (TOPAMAX) 25 mg tablet Take 3 tablets by mouth daily at bedtime. - ibuprofen (MOTRIN) 400 mg tablet Take 1 tablet by mouth three times daily as needed. - acetaminophen (TYLENOL) 500 mg tablet Take 500 mg by mouth every 6 hours as needed for Pain. - levothyroxine (SYNTHROID) 75 mcg tablet Take 1 tablet by mouth once daily. 90 tablet 3 - atenolol (TENORMIN) 50 mg tablet Take 1 tablet by mouth once daily. 90 tablet 3 No current facility-administered medications for this visit. Facility-Administered Medications Ordered in Other Visits Medication Dose Route Frequency Provider Last Rate Last Dose - heparin 5,000 Units injection 5,000 Units SUBCUTANEOUS q 8 H Emily Parikh) LORA Martinez 5,000 Units at 08/08/19 1425 - Lip Protectant with Sunscreen SPF 15 1 application Stick (Blistex) 1 application TOPICAL PRN Emily Tenorio (Lora) LORA Martinez - ibuprofen 400 mg tab(s) (MOTRIN) 400 mg ORAL TID PRN Emily Tenorio (Lora) LORA Martinez 400 mg at 08/08/19 1023 - metoclopramide HCl 10 mg injection (REGLAN) 10 mg INTRAVENOUS q 6 H PRN Emily Parikh) LORA Martinez 10 mg at 08/03/19 1900 - calcium gluconate 4 g in NaCl 0.9% 250 mL 4 g INTRAVENOUS PRN Emily Tenorio (Lora) LORA Martinez - acetaminophen 650 mg tab(s) (TYLENOL) 650 mg ORAL q 4 H PRN Emily Tenorio (Lora) LORA Martinez 650 mg at 08/07/19 1949 - fentaNYL 50 mcg/mL 25-50 mcg injection (SUBLIMAZE) 25-50 mcg INTRAVENOUS q 1 H PRN Emily Tenorio (Lora) LORA Martinez 50 mcg at 08/04/19 0320 - topiramate 50 mg tab(s) (TOPAMAX) 50 mg ORAL DAILY (6 AM) LORA Garrido (Pa) 50 mg at 08/08/19 0610 - topiramate 75 mg tab(s) (TOPAMAX) 75 mg ORAL DAILY AT 6 PM Emily Parikh) LORA Martinez 75 mg at 08/07/19 1734 - levothyroxine 75 mcg tab(s) (SYNTHROID) 75 mcg ORAL DAILY LORA Garrido (Pa) 75 mcg at 08/08/19 0610 - atenolol 50 mg tab(s) (TENORMIN) 50 mg ORAL DAILY Emily Coby (Lora) LORA Martinez 50 mg at 08/08/19 0847 - docusate sodium 100 mg cap(s) (COLACE) 100 mg ORAL BID Emily D (Lora) LORA Martinez 100 mg at 08/08/19 0847 Objective Review of Systems Constitutional: Positive for fatigue. Negative for chills, fever and unexpected weight change. HENT: Negative for congestion, ear discharge and sinus pressure. Eyes: Negative for pain and discharge. Respiratory: Positive for shortness of breath. Negative for cough and wheezing. Cardiovascular: Negative for chest pain, palpitations and leg swelling. Gastrointestinal: Positive for nausea. Negative for constipation, diarrhea and vomiting. Endocrine: Negative for cold intolerance and heat intolerance. Genitourinary: Negative for difficulty urinating, frequency and urgency. Musculoskeletal: Positive for gait problem. Negative for back pain and neck pain. Skin: Negative for rash and wound. Allergic/Immunologic: Negative for environmental allergies and food allergies. Neurological: Positive for weakness, numbness and headaches. Negative for dizziness, tremors, seizures, syncope, facial asymmetry, speech difficulty and light-headedness. Hematological: Does not bruise/bleed easily. Psychiatric/Behavioral: Negative for agitation. The patient is not nervous/anxious. Physical Exam HENT: Right Ear: Hearing normal. Left Ear: Hearing normal. Eyes: EOM are normal. No nystagmus. Neurological: She has normal strength. Psychiatric: Her speech is normal. Neurological Exam Mental Status Awake, alert and oriented to person, place and time. Recent and remote memory are intact. Speech is normal. Language is fluent with no aphasia. Attention and concentration are normal. Fund of knowledge is appropriate for level of education. Cranial Nerves CN II: Tested with correction. Right visual acuity: normal. Left visual acuity: normal. CN III, IV, : Extraocular movements intact bilaterally. No nystagmus. Right pupil: 3 mm. Round. Left pupil: 3 mm. Round. CN V: Right: Facial sensation is normal. Left: Facial sensation is normal on the left. CN VII: Right: There is no facial weakness. Left: There is no facial weakness. CN VIII: Right: Hearing is normal. Left: Hearing is normal. Bilateral hearing aids.. CN XII: Tongue midline without atrophy or fasciculations. Motor Strength is 5/5 throughout all four extremities. Sensory Light touch is normal in upper and lower extremities. Gait Casual gait is normal including stance, stride, and arm swing. WOUND ASSESSMENT: Sutures in place, dry, no swelling or active drainage. PAIN EVALUATION No data found in the last 1 encounters. Data Review: CT BRAIN WO IVCON on 08/08/2019: IMPRESSION: 1. ?No evidence hydrocephalus. ?No change in morphology or size of ventricular system. 2. Interval clearance of postoperative pseudomeningocele in the right retromastoid surgical site as well as decrease in postoperative air. 3. Stable bifrontal low density extra-axial fluid collections without significant mass effect on the subjacent cortex. ?Stable extra-axial fluid collections lateral portion of the posterior fossa bilateral, greater right side. ?Findings most likely related to low intracranial pressure/lumbar drain. Dictated by : ISAIAS MCGUIRE MD 74 y/o female who presents 2 weeks after her right retrosigmoid wound revision for CSF pseudomeningocele. - doing okay. Having some nausea recently. Wound is still flat but she had either trigeminal pain or inferior neck pain. - follow up early next week for suture removal - follow up in 4 weeks with repeat CTH to evaluate wound and for pseudomeningocele Milli Juárez MD Neurosurgery August 16, 2019 3:35 PM Normal [facility] Basic Panelon 08-08-2019 Creatinine [Mass/Vol] 0.91 mg/dL Normal 0.51-0.95 [facility] Comment on above: Result Comment: Use of this assay is not recommended for patients undergoing treatment with phenindione, due to the potential for falsely depressed results. Performed By: #### C _URI #### [address] [address] Anion gap [Moles/Vol] 8 mmol/L Normal 8-16 [facility] Comment on above: Performed By: #### C _URI #### [address] [address] CO2 [Moles/Vol] 24 mmol/L Normal 21-32 [facility] Comment on above: Performed By: #### C _URI #### [address] [address] Glucose [Mass/Vol] 104 mg/dL High 70-99 [facility] Comment on above: Performed By: #### C _URI #### [facility] [address] [place] [address] Urea nitrogen [Mass/Vol] 16 mg/dL Normal 7-18 [facility] Comment on above: Performed By: #### C _URI #### [facility] [address] [place], [place] [address] Calcium [Mass/Vol] 8.9 mg/dL Normal 8.5-10.1 [facility] Comment on above: Performed By: #### C _URI #### [facility] [address] [place] [address] Chloride [Moles/Vol] 109 mmol/L High 98-107 [facility] Comment on above: Performed By: #### C _URI #### [facility] [address] [place] [address] Potassium [Moles/Vol] 4.1 mmol/L Normal 3.5-5.1 [facility] Comment on above: Performed By: #### C _URI #### [facility] [address] [place] [address] Sodium [Moles/Vol] 137 mmol/L Normal 136-145 [facility] Comment on above: Performed By: #### C _URI #### [facility] [address] [place] [address] CASE MANAGEMon 08-08-2019 CASE MANAGEM HNO ID: [id number] Author: Kimberly (Rn) CORTEZ Plummer Service: Care Management Author Type: Registered Nurse Type: Care Mgt Progress Note Filed: 08/08/2019 3:29 PM Note Text: CARE MANAGEMENT DISCHARGE NOTE SERVICE DATE: 08/08/2019 SERVICE TIME: 3:27 PM LOS: 11 days Admission Date: 07/26/2019 DISCHARGE ARRANGEMENT (list agency and phone number) Discharge Arrangement: Home Provider Name: [facility] home care CAREGIVER ASSESSMENT: HANDOFF COMMUNICATION: TRANSPORTATION ARRANGEMENTS: Transportation Arrangements: Car ADDITIONAL CONTACT RESOURCES: [facility] company informed of discharge date. Patient is to be taken home by her daughter. SIGNATURE: Kimebrly Plummer RN PATIENT NAME: Kate Oreilly DATE: August 08, 2019 TIME: 3:27 PM PAGER/CONTACT #: [phone] Normal [facility] CT BRAIN WO IVCONon 08-08-19 CT BRAIN WO IVCON * * *Final Report* * * DATE OF EXAM: Aug 08 2019 4:40AM [facility] 0504 - CT BRAIN WO IVCON / PROCEDURE REASON: Hydrocephalus, non-communicating * * * * Physician Interpretation * * * * EXAMINATION: CT BRAIN WO IVCON CLINICAL HISTORY: Hydrocephalus, post lumbar drain clamping TECHNIQUE: Serial axial images without IV contrast were obtained from the vertex to the foramen magnum. MQ: [id number] CT Dose-Length Product (DLP): 892 mGy*cm CT Dose Reduction Employed: Iterative recon COMPARISON: 08/07/2019 CT RESULT: Post-operative change: Redemonstration bilateral retromastoid occipital craniectomy with metallic mesh cranioplasty. Interval decrease in postoperative air in the right retromastoid surgical site. Interval clearance of postoperative pseudomeningocele in the right retromastoid surgical site. Stable small area of calcification/increased density right perimesencephalic cistern related to previous trigeminal neuralgia surgery. Acute change: No evidence of an acute infarct or other acute parenchymal process. Hemorrhage: No evidence of acute intracranial hemorrhage. Mass Lesion / Mass Effect: Stable low density subdural collection right side of the posterior fossa. Stable bifrontal low density extra-axial fluid collections without significant mass effect on the subjacent cortex. Chronic change: None apparent. Parenchyma: There is no significant volume loss. The brain parenchyma is otherwise within normal limits for age. Ventricles: The ventricles are within normal limits of size and configuration for age. No change in size or morphology of the ventricular system Paranasal sinuses and skull base: The visualized paranasal sinuses are grossly clear. The skull base and imaged soft tissues are unremarkable. IMPRESSION: 1. No evidence hydrocephalus. No change in morphology or size of ventricular system. 2.Interval clearance of postoperative pseudomeningocele in the right retromastoid surgical site as well as decrease in postoperative air. 3.Stable bifrontal low density extra-axial fluid collections without significant mass effect on the subjacent cortex. Stable extra-axial fluid collections lateral portion of the posterior fossa bilateral, greater right side. Findings most likely related to low intracranial pressure/lumbar drain. Curing Machine Operator: [email or web address] Transcribe Date/Time: Aug 08 2019 7:35A Dictated by : ISAIAS MCGUIRE MD This examination was interpreted and the report reviewed and electronically signed by: ISAIAS MCGUIRE MD on Aug 08 2019 7:41AM EST Normal [facility] Hemogram/Diffon 08-08-2019 Abs Immature Grans 0.01 thou/cmm Normal 0.00-0.05 [facility] Comment on above: Performed By: #### C _URI #### [place] [address] Abs Neut (ANC) 3.84 thou/cmm Normal 1.56-6.13 [facility] Comment on above: Performed By: #### C _URI #### [place] [address] Abs. Baso 0.06 thou/cmm Normal 0.01-0.08 [facility] Comment on above: Performed By: #### C _URI #### [place] [address] Abs. [place] 0.50 thou/cmm Normal 0.27-0.70 [facility] Comment on above: Performed By: #### C _URI #### [place] [address] Basophils/100 WBC (Bld) 0.8 % Normal [facility] Comment on above: Performed By: #### C _URI #### [place] [address] Eosinophils (Bld) [#/Vol] 0.13 thou/cmm Normal 0.00-0.31 [facility] Comment on above: Performed By: #### C _URI #### [place] [address] Eosinophils/100 WBC (Bld) 1.8 % Normal [facility] Comment on above: Performed By: #### C _URI #### [place] [address] Erythrocyte distribution width (RBC) [Ratio] 12.9 % Normal 11.7-14.4 [facility] Comment on above: Performed By: #### C _URI #### [facility] [address] [place] [address] Hematocrit (Bld) [Volume fraction] 44.3 % Normal 34.1-44.9 [facility] Comment on above: Performed By: #### C _URI #### [facility] [address] [place] [address] Hemoglobin (Bld) [Mass/Vol] 14.3 g/dL Normal 11.2-15.7 [facility] Comment on above: Performed By: #### C _URI #### [place] [address] Immature Grans 0.10 % Normal [facility] Comment on above: Performed By: #### C _URI #### [facility] [address] [place] [address] Lymphocytes (Bld) [#/Vol] 2.55 thou/cmm Normal 1.18-3.74 [facility] Comment on above: Performed By: #### C _URI #### [facility] [address] [place] [address] Lymphocytes/100 WBC (Bld) 36.0 % Normal [facility] Comment on above: Performed By: #### C _URI #### [facility] [address] [place] [address] MCH (RBC) [Entitic mass] 29.7 pg Normal 25.6-32.2 [facility] Comment on above: Performed By: #### C _URI #### [facility] [address] [place] [address] MCHC (RBC) [Mass/Vol] 32.3 % Normal 31.6-34.8 [facility] Comment on above: Performed By: #### C _URI #### [facility] [address] [place] [address] MCV (RBC) [Entitic vol] 91.9 fL Normal 79.4-94.8 [facility] Comment on above: Performed By: #### C _URI #### [facility] [address] [place], [place] [address] Monocytes/100 WBC (Bld) 7.1 % Normal [facility] Comment on above: Performed By: #### C _URI #### [facility] [address] [place], [place] [address] Platelet mean volume (Bld) [Entitic vol] 11.1 fL Normal 9.4-12.3 [facility] Comment on above: Performed By: #### C _URI #### [facility] [address] [place], [place] [address] Platelets (Bld) [#/Vol] 196 thou/cmm Normal 182-369 [facility] Comment on above: Performed By: #### C _URI #### [place] [address] RBC (Bld) [#/Vol] 4.82 mil/cmm Normal 3.93-5.22 [facility] Comment on above: Performed By: #### C _URI #### [facility] [address] [place] [address] RDW SD 43.6 fl Normal 36.4-46.3 [facility] Comment on above: Performed By: #### C _URI #### [facility] [address] [place], [place] [address] Seg Neutrophil 54.2 % Normal [facility] Comment on above: Performed By: #### C _URI #### [facility] [address] [place] [address] WBC (Bld) [#/Vol] 7.09 thou/cmm Normal 3.98-10.04 [facility] Comment on above: Performed By: #### C _URI #### [facility] [address] [place] [address] MDRD GFRon 08-08-2019 GFR/1.73 sq M predicted among non-blacks MDRD (S/P/Bld) [Vol rate/Area] mL/min/{1.73_m2} Normal >60mL/min/1 .73m2 [facility] Comment on above: Result Comment: If t he patient is , multiply the result by 1.210. Performed By: #### C BC1 #### [facility] [address] [place], [place] [address] Magnesium Bloodon 08-08-2019 Magnesium [Mass/Vol] 2.2 mg/dL Normal 1.6-2.6 [facility] Comment on above: Performed By: #### C _URI #### [facility] [address] [place], [place] [address] NURSING PROGon 08-08-2019 NURSING PROG HNO ID: [id number] Author: Carey (Rn) CORTEZ Watts Service: Nursing Author Type: Registered Nurse Type: Nursing Progress Note Filed: 08/08/2019 3:33 PM Note Text: 1515 Reviewed discharge instructions with Kate Martinez belongings and gave to patient. 1530 Removed IV and helped patient to dress 1545 Patient discharged via wheelchair and transported home by daughter Normal [facility] PLAN OF CAREon 08-08-2019 PLAN OF CARE HNO ID: [id number] Author: Loyda Velasquez (Gasoline Engine Assembler) Service: ? Author Type: ? Type: Plan of Care Filed: 08/08/2019 3:32 PM Note Text: PLANT PROTECTION SUPERINTENDENT BEDSIDE DELIVERY SURVEY 1. Patient to use [facility] Bedside Delivery - NO prefer own pharmacy Insurance Information as follows: 2. Insurance card on file - YES 3. Credit card for payment - N/A Patient declined bedside delivery for DC medications. Loyda Velasquez (Gasoline Engine Assembler) [phone] [facility] PROGRESSon 08-08-2019 PROGRESS HNO ID: [id number] Author: Emily aPrikh) LORA Mratinez Service: Neurosurgery Author Type: Physician Exercise Equipment Repair Technician Type: Progress Notes Filed: 08/08/2019 8:26 AM Note Text: Neurosurgery Progress Note SERVICE DATE: 08/08/2019 SUBJECTIVE: Awake and alert up in chair. H/a minimal. Has not felt any leaking from her back. No n/v. Ambulates well without assist. OBJECTIVE: Vitals: Temp (24hrs), Av.4 ?C (97.6 ?F), Min:36.4 ?C (97.5 ?F), Max:36.5 ?C (97.7 ?F) BP 96/63 Pulse 79 Temp 36.5 ?C (97.7 ?F) (Temporal) Resp 19 Ht 170.2 cm (5' 7) Wt 85.7 kg (188 lb 15 oz) LMP (LMP Unknown) SpO2 95% BMI 29.59 kg/m? O2 Therapy: Room Air IANDO: Date 08/07/19699 - 08/08/19 0608/08/19 07 - 08/09/19 0659 Shift 8202-7244 1415-9984 2883-7106 24 Hour Total 0764-0332 9650-2377 8424-7268 24 Hour Total INTAKE PO 480 480 PO 480 480 Shift Total 480 480 OUTPUT Urine 350 350 Void (ml) 350 350 Urine Not Saved. 1 x 3 x 4 x Tubes 10 10 Drain/Tube Output ([REMOVED] Drain/Tube 07/28/19 2130 Lumbar Midline Back 08/07/19 1431) 10 10 # of BMs Number of BMs 1 x 1 x 2 x Shift Total 360 360 Weight (kg) 85.7 85.7 85.7 85.7 85.7 85.7 85.7 85.7 MEDICATIONS Current Facility-Administered Medications Medication Dose Route Frequency - heparin 5,000 Units injection 5,000 Units SUBCUTANEOUS q 8 H - Lip Protectant with Sunscreen SPF 15 1 application Stick (Blistex) 1 application TOPICAL PRN - ibuprofen 400 mg tab(s) (MOTRIN) 400 mg ORAL TID PRN - metoclopramide HCl 10 mg injection (REGLAN) 10 mg INTRAVENOUS q 6 H PRN - potassium chloride ER 20-40 mEq tab(s) (K-DUR, KLOR-CON) 20-40 mEq ORAL/FEEDING TUBE PRN Or - potassium chloride iv piggyback 20 mEq/100 mL 20 mEq INTRAVENOUS PRN - magnesium sulfate in water 2 g in sterile water 50 ml 2 g INTRAVENOUS PRN - sodium phosphate 45 mmol in NaCl 0.9% 250 mL 45 mmol INTRAVENOUS PRN - calcium gluconate 4 g in NaCl 0.9% 250 mL 4 g INTRAVENOUS PRN - acetaminophen 650 mg tab(s) (TYLENOL) 650 mg ORAL q 4 H PRN - fentaNYL 50 mcg/mL 25-50 mcg injection (SUBLIMAZE) 25-50 mcg INTRAVENOUS q 1 H PRN - topiramate 50 mg tab(s) (TOPAMAX) 50 mg ORAL DAILY (6 AM) - topiramate 75 mg tab(s) (TOPAMAX) 75 mg ORAL DAILY AT 6 PM - levothyroxine 75 mcg tab(s) (SYNTHROID) 75 mcg ORAL DAILY - atenolol 50 mg tab(s) (TENORMIN) 50 mg ORAL DAILY - docusate sodium 100 mg cap(s) (COLACE) 100 mg ORAL BID Labs: Recent Labs 08/08/19 0425 08/07/19 0352 NA 137 136 K 4.1 3.8 CHLOR 109* 107 CO2 24 24 BUN 16 17 CREAT 0.91 0.87 GLUC 104* 90 ANION 8 9 CA 8.9 8.5 MG 2.2 2.0 P 3.9 3.9 WBC 7.09 5.79 HB 14.3 13.2 HCT 44.3 41.5 PLT 196 193 Exam: GENERAL: No distress, Alert NEURO: orientedx3; speech clear and fluent; msp intact HEENT: normocephalic, right back of head flat; incision c/d/i LUNGS: Unlabored breathing BACK: no leaking from drain hole - stitched ASSESSMENT AND PLAN: Active Hospital Problems Diagnosis Date Noted - 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 Juárez SIGNATURE: LORA Garrido PATIENT NAME: Kate Oreilly DATE: August 08, 2019 TIME: 8:13 AM Pager: [phone] Normal [facility] Phosphorus Bloodon 0 Phosphate [Mass/Vol] 3.9 mg/dL Normal 2.5-4.9 [facility] Comment on above: Performed By: #### C _URI #### [place] [address] THERAPY NTon 08-08-2019 THERAPY NT HNO ID: [id number] Author: Talya MartínezOtr/Lonnie Ba OT Service: Occupational Therapy Author Type: Occupational Therapist Type: Therapy (PT/OT/Speech/Resp) Filed: 08/08/2019 3:10 PM Note Text: Occupational Therapy Treatment SERVICE DATE: 08/08/2019 SERVICE TIME: 1402 to 1428 ROOM: [id number] Recommended Discharge Disposition: Home OT Recommended Discharge Disposition Comments: Rec home OT to maximize cognition. 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 Pt scored a 21/30 on the MoCA demonstrating min cognitive impairment. Anticipated Discharge Needs: Physical Assist at Home Physical Assist at Home for: Cleaning;Laundry;Meals;Irma pping;Transportation Supervision at Home due to: Decreased safety awareness OT Recommendations to Nursing: ADL?s in chair;To Bathroom for ADL?s /and or Toileting;OOB for meals;Transfer to Chair;With assist of 1 person OT 6 Clicks Score: 19 Precautions/Activity Restrictions: Fall Risk;Lines/Tubes/Drains Precaution/Activity Restriction Comments: Lumbar drain, IV Isolation Type: None ASSESSMENT: Patient progressing as expected towards OT goals. Completed MoCA cognitive assessment with patient this date; pt scored a 21/30 (normal is 26 or better out of 30). 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 Pt would greatly benefit from home OT with focus on cognition to return to her baseline function . Patient Disposition at Start of Session: Supine in Bed;Call Miles in Reach Patient Disposition at End of Session: Call Miles in Reach;Nursing Personnel Present;Other: See Comment(sitting EOB) Tolerated Full Session Occupational Therapy Problem List: Cognitive Deficit;Education Deficit;Safety Deficits;Impaired Self Care;Decreased Activity Tolerance;Decreased Strength;Functional Mobility Impairment;Balance Impaired Patient /Caregiver Goals: Go Home;Care For Self Goals for Plan of Care: Grooming with: Modified Independent Upper Body Bathing with: Modified Independent Upper Body Dressing with: Modified Independent Lower Body Bathing with: Stand By Assistance Lower Body Dressing with: Stand By Assistance Toilet Hygiene with: Stand By Assistance Chair Transfer with: Stand By Assistance Tolerate (minutes of functional activity): 15 Functional Activity with: Contact Guard Assistance Additional Goal 1: Pt to demo good safety with OOB ADLs Additional Goal 2: Pt to complete iADL simulation with 100% accuracy Progress Toward Goals: Progressing as expected Rehab Potential: Excellent PLAN: Treatment Frequency (times per week): 5(3-5) Current admission Treatment Interventions: Education;Self Care / Home Management;Strengthening;F unctional Mobility Training;Balance Training;Cognitive Training Plan of Care developed with: Patient TREATMENT INTERVENTIONS: Therapy Diagnosis: Muscle Weakness (generalized);Decreased activities of daily living (ADL);Reduced mobility-other;Unsteadines s on feet;Signs and Symptoms Involving Cognitive Functions and Awareness Interventions Provided: Cognitive Training (64290 and 86847) 2019 New Cognitive Training Per First 15 Minutes (66645) 2020: 15 1 unit Skilled Intervention(s): Facilitated completion of the [place] Cognitive Assessment (MOCA), which is a rapid screening instrument for mild cognitive dysfunction. From the results (a score of 21/30), pt demo's min deficits in visuospatial / executive functioning, mod / max deficits in memory, mod deficits in attention and concentration, min deficits in language, min deficits in abstraction/conceptual thinking, and no deficits in orientation. The total possible score is 30 points; a score of 26 or above is considered normal (no cognitive impairment). Discussed results of assessment with patient and explained areas to improve in order to maximize her cognition and return to her baseline function. Educated pt on role of home OT services. Cognitive Training Per Additional 15 Minutes (56858) 2020: 11 1 unit Total Timed Code Treatment Minutes: 26 Total Treatment Time (minutes): 26 SUBJECTIVE: Current Hospital Course: Chart reviewed and no significant medical updates relevant to therapy were noted Reason for Occupational Therapy Consult: Progressive mobility protocol Relevant Past Medical History: trigeminal neuralgia, meningiona resection 04/2019, HTN, pneumonia Patient Report: Pt supine, agreeable to session. Pt is distractible throughout session and requires cuing to stay on task. Reports that her sewing business has been suffering since she hasn't been able to tend to it while admitted. Home Environment Patient Lives With: Spouse Assistance Available: 24 Hour Entry To Home: Stairs;With Rail Number Of Stairs Into Home: 7 Number Of Stairs To Bed/Bath: flight Stairs to Bed/Bath with: Bilateral Rail Tub/Shower Type: walk in shower Laundry: main floor Equipment Owned: Cane;Grab Bars-Shower;Wheeled Walker;Duplex Trimmer;Shower Bench(quad cane, hurricane) Prior Functional Level: Within Functional Limits Prior Functional Level Comments: Patient reports not using a device to ambulate, independent with self care OBJECTIVE: Cognition/Communication Deficits Responsiveness: Alert Follows Commands: 2-step Commands Attention Deficits: Distractible Memory Deficits: (tangential hisotrian ) Executive Function Deficits: Safety Awareness;Problem Solving;Insight to Deficits;Judgement Judgement Deficit: Minimal impairment Insight to Deficits: Minimal impairment Problem Solving Deficit: Minimal impairment Safety Awareness Deficit: Minimal impairment Cognitive Clinical Tests and Screens: MoCA Visuospatial/executive: 5 Namin Digits: 2 Letters: 1 Subtraction: 1 Repetition: 1 Fluency: 0 Abstraction: 0 Delayed Recall: 2 Orientation: 6 Points For Educational Level: 0 MoCA Total Score (out of 30): 21 CURRENT FUNCTIONAL STATUS: Current Activities of Daily Living Assist Level Feeding Independent Grooming Contact Guard Assistance Bathing Upper Body Contact Guard Assistance Bathing Lower Body Minimal Assistance Dressing Upper Body Contact Guard Assistance Dressing Lower Body Minimal Assistance Toileting Contact Guard Assistance Functional Mobility Assist Level Rolling Supine to Sit Stand By Assistance Sit to Supine Scooting Stand By Assistance Sit to Stand Stand to Sit Bed to Chair Toilet/Commode Functional Mobility Hand Dominance: Right Range of Motion: WFL Strength: WFL Please see discipline specific clinical documentation flowsheet for complete details for this therapy evaluation/treatment. SIGNATURE: KAEL Rosen/Nolberto PATIENT NAME: Kate Oreilly DATE: August 08, 2019 TIME: 3:04 PM Normal [facility] THERAPY NT HNO ID: [id number] Author: Sanchez Monzon) Ignacio Service: Physical Therapy Author Type: Trial Court Justice Type: Therapy (PT/OT/Speech/Resp) Filed: 08/08/2019 1:51 PM Note Text: -- Attestation signed by Kylah Byrne at 08/09/2019 4:59 PM I reviewed and agree with the documentation corresponding to this therapy visit. SIGNATURE: Kylah Byrne PT DATE: August 09, 2019 TIME: 4:59 PM -- Physical Therapy Treatment SERVICE DATE: 08/08/2019 SERVICE TIME: 1302 to 1336 ROOM: [id number] Recommended Discharge Disposition: Home PT Recommended Discharge Disposition Comments: Patient to benefit from Home PT to increase strength, balance and activity tolerance for improved independence and safety with functional mobility Anticipated Discharge Needs: Physical Assist at Home Physical Assist at Home for: Cleaning;Laundry;Meals;Irma pping;Transportation Supervision at Home due to: Decreased safety awareness PT Recommendations to Nursing: Ambulate with device;To bathroom;In halls;Transfer to/from chair;OOB for Meals;With assist of 1 person Device: Hand Held Assist PT 6 Clicks Score: 20 Precautions/Activity Restrictions: Fall Risk;Lines/Tubes/Drains Precaution/Activity Restriction Comments: Lumbar drain, IV Isolation Type: None ASSESSMENT : Patient presents with ongoing PT goals--patient with increased gait distances this session, patient stated right leg pain from bottom down to knee. With piriformis stretch, patient felt less discomfort, able to ambulate better. Patient would benefit from home PT to address all functional deficits. continue to recommend home PT to improve strength, ROM, balance,endurance, normalize gait pattern and improved safety and performance in the home back to prior level of function. Patient Disposition at Start of Session: Supine in Bed;Call Miles in Reach Patient Disposition at End of Session: Supine in Bed;Call Miles in Reach Tolerated Full Session Physical Therapy Problem List: Pain;Decreased Strength;Balance Impaired Patient /Caregiver Goals: Go Home Goals for Plan of Care: Able to perform HEP with: Independent Transfer supine to/from sit with: Independent Transfer sit to/from stand with: Independent Ambulate with: Independent Distance: 50 (goal met, PT to update) Device: No Device Ambulate up and down steps with: Supervision Number of steps: 4 (goal met, PT to update) Device: Rail Progress Toward Goals: Progressing as expected Rehab Potential: Good PLAN: Treatment Frequency (times per week): 5(3-5) Current admission Treatment Interventions: Energy Conservation Training;Strengthening;Fun ctional Mobility Training;Balance Training Plan of Care developed with: Patient TREATMENT INTERVENTIONS: Therapy Diagnosis: Muscle Weakness (generalized);Unsteadiness on feet Interventions Provided: Gait Training (27092);Therapeutic Activity (50329) Therapeutic Activity (24477) Treatment Minutes: 14 1 unit Skilled Intervention(s): Instructed patient in log roll technique Instructed patient in supine to and from sit pushing with upper extremities to sit up--cuing for proper UE support, LE movements, and proper breathing. Instruction in sit to and from stand technique with proper hand placement and body positioning at edge of bed/chair--cuing for proper UE support on seated surfaces--multiple transfer to/from sit to stand and supine to/from sit throughout therapy. RLE piriformis stretch to alleviate right LE discomfort from bottom to knee with gait. 30 second hold times x6 in supine x4 in seated after first/second walk. Patient stated pain lessoned after stretching. Gait Training (29636) Treatment Minutes: 20 1 unit Skilled Intervention(s): Instruction in sit to stand technique with proper hand placement and body positioning at edge of bed/chair, Instruction in stand to sit technique with LE's touching chair/bed and reaching back for surface, Instruction in sequencing, gait pattern, Instruction in correction of gait deviations and Instruction in stair negotiation--cuing for proper heel strike, posture, step length, and breathing, on stairs--cuing for proper UE support on rails, to perform step to pattern-leading up with stronger less painful LLE, down with more painful/weaker RLE. Patient educated if feels unstable at home to use walker for improved stability/safety in the home. Total Timed Code Treatment Minutes: 34 Total Treatment Time (minutes): 34 SUBJECTIVE: Current Hospital Course: Chart reviewed and no significant medical updates relevant to therapy were noted Reason for Physical Therapy Consult : eval and treat Relevant Past Medical History: trigeminal neuralgia, meningiona resection 04/2019, HTN, pneumonia Patient Report: patient stated pain in bottom down to knee with gait decreased after piriformis stretching. Home Environment Patient Lives With: Spouse Assistance Available: 24 Hour Entry To Home: Stairs;With Rail Number Of Stairs Into Home: 7 Number Of Stairs To Bed/Bath: flight Stairs to Bed/Bath with: Bilateral Rail Tub/Shower Type: walk in shower Laundry: main floor Equipment Owned: Cane;Grab Bars-Shower;Wheeled Walker;Duplex Trimmer;Shower Bench(quad cane, hurricane) Prior Functional Level: Within Functional Limits Prior Functional Level Comments: Patient reports not using a device to ambulate, independent with self care OBJECTIVE: CURRENT FUNCTIONAL STATUS: Current Functional Mobility Assist Level Additional Information Rolling Supine to Sit Stand By Assistance Sit to Supine Stand By Assistance Scooting Contact Guard Assistance Sit to Stand Stand By Assistance Stand to Sit Stand By Assistance Bed to Chair Independent Toilet/Commode Gait Contact Guard Assistance(light contact to SBA) Gait Device: None Gait Distance (feet): 40'x4, 70'x2 Stairs Contact Guard Assistance Stairs Device: Rail;Other: See Comment(bilateral rails as at home) Number of Stairs: 10 Curb Step Car Transfer General Gait Deviations: Antalgic gait pattern;Shonda decreased;Step length decreased;Narrow Base of Support;Non-functional gait speed;Difficulty changing direction/turning Balance: Static Sitting;Dynamic Sitting;Static Standing;Dynamic Standing Static Sitting Balance: Good Able to maintain balance against moderate resistance Dynamic Sitting Balance: Good Able to sit unsupported AND weight shift across midline moderately Static Standing Balance: Good- / Fair+ Able to maintain standing balance against minimal resistance Dynamic Standing Balance: Good- / Fair+ Stand independently unsupported, able to weight shift across midline minimally Activity Tolerance: Standing Activity Standing Activity: gait Standing Activity Tolerance (in minutes): 10 JH-HLM: 7: Walk 25 feet or more Please see discipline specific clinical documentation flowsheet for complete details for this therapy evaluation/treatment. SIGNATURE: Sanchez Pierre PTA PATIENT NAME: Kate Oreilly DATE: August 08, 2019 TIME: 1:42 PM Normal [facility] THERAPY NT HNO ID: [id number] Author: Sanchez Pierre Service: Physical Therapy Author Type: Trial Court Justice Type: Therapy (PT/OT/Speech/Resp) Filed: 08/08/2019 8:27 AM Note Text: -- Attestation signed by Genevieve (Pt) Joe at 08/08/2019 4:14 PM I reviewed and agree with the documentation corresponding to this therapy visit. SIGNATURE: Genevieve Diaz PT DATE: August 08, 2019 TIME: 4:14 PM -- PHYSICAL THERAPY MISSED VISIT SERVICE DATE: 08/08/2019 SERVICE TIME: 825 to 08 ROOM: [place] [address] Attempted Treatment. Patient not seen due to Eating. Will continue to follow as able. SIGNATURE: Sanchez Pierre PTA PATIENT NAME: Kate Oreilly DATE: August 08, 2019 TIME: 8:27 AM Normal [facility] Basic Panelon 08-07-2019 Creatinine [Mass/Vol] 0.87 mg/dL Normal 0.51-0.95 [facility] Comment on above: Result Comment: Use of this assay is not recommended for patients undergoing treatment with phenindione, due to the potential for falsely depressed results. Performed By: #### C _URI #### [address] [address] Urea nitrogen [Mass/Vol] 17 mg/dL Normal 7-18 [facility] Comment on above: Performed By: #### C _URI #### [facility] [address] [place], [place] [address] Anion gap [Moles/Vol] 9 mmol/L Normal 8-16 [facility] Comment on above: Performed By: #### C _URI #### [facility] [address] [place], [place] [address] CO2 [Moles/Vol] 24 mmol/L Normal 21-32 [facility] Comment on above: Performed By: #### C _URI #### [facility] [address] [place], [place] [address] Calcium [Mass/Vol] 8.5 mg/dL Normal 8.5-10.1 [facility] Comment on above: Performed By: #### C _URI #### [facility] [address] [place], [place] [address] Glucose [Mass/Vol] 90 mg/dL Normal 70-99 [facility] Comment on above: Performed By: #### C _URI #### [facility] [address] [place], [place] [address] Chloride [Moles/Vol] 107 mmol/L Normal 98-107 [facility] Comment on above: Performed By: #### C _URI #### [facility] [address] [place], [place] [address] Potassium [Moles/Vol] 3.8 mmol/L Normal 3.5-5.1 [facility] Comment on above: Performed By: #### C _URI #### [facility] [address] [place], [place] [address] Sodium [Moles/Vol] 136 mmol/L Normal 136-145 [facility] Comment on above: Performed By: #### C _URI #### [facility] [address] [place], [place] [address] CASE MANAGEMon 08-07-2019 CASE MANAGEM HNO ID: [id number] Author: Cecilia Wagner) CORTEZ Shay Service: Care Management Author Type: Registered Nurse Type: Care Mgt Progress Note Filed: 08/07/2019 2:42 PM Note Text: CARE MANAGEMENT PROGRESS NOTE SERVICE DATE: 08/07/2019 SERVICE TIME: 2:41 PM LOS: 10 days Chart reviewed. PT/OT rec home therapy. Attempted to see pt at bedside, but pt was having bedside procedure done. Will attempt to see pt another time. CM to follow. SIGNATURE: Cecilia hSay RN PATIENT NAME: Kate Oreilly DATE: August 07, 2019 TIME: 2:40 PM PAGER/CONTACT #: [phone] Normal [facility] Hemogram/Diffon 08-07-2019 Abs Immature Grans 0.02 thou/cmm Normal 0.00-0.05 [facility] Comment on above: Performed By: #### C _URI #### [facility] [address] [place] [address] Abs Neut (ANC) 2.59 thou/cmm Normal 1.56-6.13 [facility] Comment on above: Performed By: #### C _URI #### [facility] [address] [place] [address] Abs. Baso 0.04 thou/cmm Normal 0.01-0.08 [facility] Comment on above: Performed By: #### C _URI #### [facility] [address] [place] [address] Abs. [place] 0.46 thou/cmm Normal 0.27-0.70 [facility] Comment on above: Performed By: #### C _URI #### [place] [address] Basophils/100 WBC (Bld) 0.7 % Normal [facility] Comment on above: Performed By: #### C _URI #### [facility] [address] [place] [address] Eosinophils (Bld) [#/Vol] 0.17 thou/cmm Normal 0.00-0.31 [facility] Comment on above: Performed By: #### C _URI #### [place] [address] Eosinophils/100 WBC (Bld) 2.9 % Normal [facility] Comment on above: Performed By: #### C _URI #### [facility] [address] [place] [address] Erythrocyte distribution width (RBC) [Ratio] 13.0 % Normal 11.7-14.4 [facility] Comment on above: Performed By: #### C _URI #### [place] [address] Hematocrit (Bld) [Volume fraction] 41.5 % Normal 34.1-44.9 [facility] Comment on above: Performed By: #### C _URI #### [facility] [address] [place], [place] [address] Hemoglobin (Bld) [Mass/Vol] 13.2 g/dL Normal 11.2-15.7 [facility] Comment on above: Performed By: #### C _URI #### [facility] [address] [place], [place] [address] Immature Grans 0.30 % Normal [facility] Comment on above: Performed By: #### C _URI #### [facility] [address] [place], [place] [address] Lymphocytes (Bld) [#/Vol] 2.52 thou/cmm Normal 1.18-3.74 [facility] Comment on above: Performed By: #### C _URI #### [facility] [address] [place], [place] [address] Lymphocytes/100 WBC (Bld) 43.5 % Normal [facility] Comment on above: Performed By: #### C _URI #### [facility] [address] [place], [place] [address] MCH (RBC) [Entitic mass] 29.4 pg Normal 25.6-32.2 [facility] Comment on above: Performed By: #### C _URI #### [facility] [address] [place], [place] [address] MCHC (RBC) [Mass/Vol] 31.8 % Normal 31.6-34.8 [facility] Comment on above: Performed By: #### C _URI #### [facility] [address] [place], [place] [address] MCV (RBC) [Entitic vol] 92.4 fL Normal 79.4-94.8 [facility] Comment on above: Performed By: #### C _URI #### [facility] [address] [place], [place] [address] Monocytes/100 WBC (Bld) 7.9 % Normal [facility] Comment on above: Performed By: #### C _URI #### [facility] [address] [place] [address] Platelet mean volume (Bld) [Entitic vol] 11.3 fL Normal 9.4-12.3 [facility] Comment on above: Performed By: #### C _URI #### [facility] [address] [place], [place] [address] Platelets (Bld) [#/Vol] 193 thou/cmm Normal 182-369 [facility] Comment on above: Performed By: #### C _URI #### [facility] [address] [place] [address] RBC (Bld) [#/Vol] 4.49 mil/cmm Normal 3.93-5.22 [facility] Comment on above: Performed By: #### C _URI #### [facility] [address] [place] [address] RDW SD 44.4 fl Normal 36.4-46.3 [facility] Comment on above: Performed By: #### C _URI #### [place] [address] Seg Neutrophil 44.7 % Normal [facility] Comment on above: Performed By: #### C _URI #### [facility] [address] [place] [address] WBC (Bld) [#/Vol] 5.79 thou/cmm Normal 3.98-10.04 [facility] Comment on above: Performed By: #### C _URI #### [place] [address] Magnesium Bloodon 08-07-2019 Magnesium [Mass/Vol] 2.0 mg/dL Normal 1.6-2.6 [facility] Comment on above: Performed By: #### C _URI #### [place] [address] PROGRESSon 08-07-2019 PROGRESS HNO ID: [id number] Author: Tana Tello Service: Neurosurgery Author Type: Nurse Practitioner Type: Progress Notes Filed: 08/07/2019 5:12 PM Note Text: Neurosurgery 08/07/2019 5:07 PM 1440 - lumbar drain removed. One large stitch placed. No leaking with pt coughing. Pt lie flat x 2 hours. 1700 - back drain site examined. No leaking or drainage noted. Pt without headache Repeat CT brain in am Tana Tello APRN.VALUE STREAM MANAGER 08/07/2019 5:12 PM [phone] Normal [facility] PROGRESS HNO ID: [id number] Author: Carmelo Hardy Service: Neurology ICU Author Type: Physician Type: Progress Notes Filed: 08/07/2019 3:01 PM Note Text: SERVICE DATE: 08/07/2019 SERVICE TIME: 10:34 AM NEURO ICU PROGRESS NOTE DATE OF ADMISSION: 07/26/2019 Subjective Hospital Course: 08/06: Lumbar drain in place. 08/07: No acute events overnight. Drain clamped today per neurosurg. Events Since Last Note: No acute events overnight. Drain clamped today per neurosurg. Objective BP 118/70 Pulse 73 Temp 36.3 ?C (97.3 ?F) (Temporal Artery) Resp 16 Ht 170.2 cm (5' 7) Wt 85.7 kg (188 lb 15 oz) LMP (LMP Unknown) SpO2 99% BMI 29.59 kg/m? Weight change: Neuro:?GCS: Eyes:?4. Spontaneous Verbal:?5: Oriented Motor:?6: Obeys Motor commands Total:?15?CRANIAL NERVES: Normal mood and affect. CNII-XII grossly intact. ?MOTOR STRENGTH: Upper and lower extremity 5/5 bilaterally SENSATION:?Intact?light touch COORDINATION:?Finger-to- nose-finger intact bilaterally CV:?RRR Pulm:?lungs CTAB, Mechanical Ventilation:?No. Supplemental Oxygen:?No GI/:?abdomen soft, NT, ND Skin/Extremities:?Edema- No??Peripheral pulses- Present all extremities. Lumbar drain present? Diagnostic tests reviewed for today's visit: Most recent labs and imaging results. Lines, Drains, and Airways Line Peripheral 08/04/19 0731 Assessment Short Left Wrist 20 Gauge 3 days Drain Drain/Tube 07/28/19 2130 Lumbar Midline Back 9 days ICU Checklist Last Documented/Reviewed time: 07/30/2019 12:57 PM ICU Delirium Status: CAM Positive - new, will place orders Restraint Status: None ICU Mobility-Pt Has Been Out of Bed: Yes Line Status: None Ventilator: None Gregorio Status: None GI/Stress Ulcer Prophylaxis: None - not required Nutrition is at Goal: Yes VTE Prophylaxis: Chemoprophylaxis: No chemoprophylaxis No Chemoprophylaxis Reason: Bleeding risk Pressure Injury Status: None ICU Plan Reviewed with RN: Yes ICU Family Update in Last 24 Hours: Patient updated ICU Disposition- Is Patient Clinically Ready to Transfer to [facility] or SDU?: No Discharge Planning: Home PERSONAL INVOLVEMENT IN CARE: Reviewing initiation, responses and adjustments to therapies, coordination of care, and updating family with Staff Physician, Dr. Hardy. 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 F/U CT brain tomorrow Medication and Non-Pharmacologic VTE Prophylaxis/Anticoagulants 08/03/19 1700 vte pharmacologic prophylaxis contraindicated (tx,[place]) 08/03/19 1700 pneumatic compression stockings (tx,ar) 08/03/19 1700 activity - mobilize patient ([place], [place]) VTE Prophylaxis: VTE prophylaxis appropriate Plan of care discussed with: Provider, RN, Patient SIGNATURE: Leta Mcrae DO PATIENT NAME: Kate Oreilly DATE: August 07, 2019 TIME: 10:34 AM PAGER/CONTACT #: [phone] NSICU STAFF ADDENDUM Carmelo Hardy MD Pt seen and examined independently. Labs/vitals/imaging reviewed personally. Agree with above, reflecting my direct input. LD now clamped. Monitor expectantly for CSF leak. Repeat CTH in am. C/w present ICU care. PERSONAL INVOLVEMENT IN CARE: ? ?Patient/Family Updated: Patient and/or family were updated regarding the goals of care,?medical plan for the day, library consultant recommendations, medical disposition and current medical condition/prognosis as and if clinically indicated. All questions and concerns were answered and addressed at this juncture. I agree with the resident MD note as above, except as otherwise indicated; my additional comments, if necessary, are in bold. ? This patient has a high probability of sudden, clinically significant deterioration, which requires the highest level of physician preparedness to intervene urgently. I managed/supervised life or organ supporting interventions that required frequent physician assessment. I devoted my full attention to the direct care of this patient for the amount of time indicated below. Time I spent with family or surrogate(s) is included only if the patient was incapable of providing the necessary information or participating in medical decision making. Time devoted to teaching and to any procedures I billed separately is not included. ? Critical Care Documentation: The patient has the following organ/system impairment(s): As above Time spent providing critical care services: 31 minutes. ? SIGNATURE: Carmelo Hardy MD PATIENT NAME: Kate Oreilly DATE: 08/07/19 TIME: 3:01 PM PAGER/CONTACT #: [phone] Normal [facility] Phosphorus Bloodon 0 Phosphate [Mass/Vol] 3.9 mg/dL Normal 2.5-4.9 [facility] Comment on above: Performed By: #### C _URI #### [place] [id number] Basic Panelon 08-06-2019 Creatinine [Mass/Vol] 0.66 mg/dL Normal 0.51-0.95 [facility] Comment on above: Result Comment: Use of this assay is not recommended for patients undergoing treatment with phenindione, due to the potential for falsely depressed results. Performed By: #### M RSA #### [place] [address] Glucose [Mass/Vol] 95 mg/dL Normal 70-99 [facility] Comment on above: Performed By: #### M RSA #### [facility] [address] [place] [address] Urea nitrogen [Mass/Vol] 18 mg/dL Normal 7-18 [facility] Comment on above: Performed By: #### M RSA #### [facility] [address] [place], [place] [address] Anion gap [Moles/Vol] 9 mmol/L Normal 8-16 [facility] Comment on above: Performed By: #### M RSA #### [facility] [address] [place] [address] Calcium [Mass/Vol] 9.1 mg/dL Normal 8.5-10.1 [facility] Comment on above: Performed By: #### M RSA #### [facility] [address] [place] [address] CO2 [Moles/Vol] 25 mmol/L Normal 21-32 [facility] Comment on above: Performed By: #### M RSA #### [facility] [address] [place] [address] Chloride [Moles/Vol] 105 mmol/L Normal 98-107 [facility] Comment on above: Performed By: #### M RSA #### [place] [address] Potassium [Moles/Vol] 3.9 mmol/L Normal 3.5-5.1 [facility] Comment on above: Performed By: #### M RSA #### [place] [address] Sodium [Moles/Vol] 135 mmol/L Low 136-145 [facility] Comment on above: Performed By: #### M RSA #### [facility] [address] [place] [address] Hemogram/Diffon 08-06-2019 Abs Immature Grans 0.01 thou/cmm Normal 0.00-0.05 [facility] Comment on above: Performed By: #### M RSA #### [place] [address] Abs Neut (ANC) 3.42 thou/cmm Normal 1.56-6.13 [facility] Comment on above: Performed By: #### M RSA #### [facility] [address] [place] [address] Abs. Baso 0.06 thou/cmm Normal 0.01-0.08 [facility] Comment on above: Performed By: #### M RSA #### [facility] [address] [place] [address] Abs. [place] 0.49 thou/cmm Normal 0.27-0.70 [facility] Comment on above: Performed By: #### M RSA #### [place] [address] Basophils/100 WBC (Bld) 0.9 % Normal [facility] Comment on above: Performed By: #### M RSA #### [place] [address] Eosinophils (Bld) [#/Vol] 0.18 thou/cmm Normal 0.00-0.31 [facility] Comment on above: Performed By: #### M RSA #### [place] [address] Eosinophils/100 WBC (Bld) 2.6 % Normal [facility] Comment on above: Performed By: #### M RSA #### [place] [address] Erythrocyte distribution width (RBC) [Ratio] 12.8 % Normal 11.7-14.4 [facility] Comment on above: Performed By: #### M RSA #### [place] [address] Hematocrit (Bld) [Volume fraction] 48.2 % High 34.1-44.9 [facility] Comment on above: Performed By: #### M RSA #### [place] [address] Hemoglobin (Bld) [Mass/Vol] 14.9 g/dL Normal 11.2-15.7 [facility] Comment on above: Performed By: #### M RSA #### [address] [place], [place] [address] Immature Grans 0.10 % Normal [facility] Comment on above: Performed By: #### M RSA #### [facility] [address] [place], [place] [address] Lymphocytes (Bld) [#/Vol] 2.84 thou/cmm Normal 1.18-3.74 [facility] Comment on above: Performed By: #### M RSA #### [facility] [address] [place], [place] [address] Lymphocytes/100 WBC (Bld) 40.6 % Normal [facility] Comment on above: Performed By: #### M RSA #### [facility] [address] [place] [address] MCH (RBC) [Entitic mass] 28.8 pg Normal 25.6-32.2 [facility] Comment on above: Performed By: #### M RSA #### [facility] [address] [place] [address] MCHC (RBC) [Mass/Vol] 30.9 % Low 31.6-34.8 [facility] Comment on above: Performed By: #### M RSA #### [facility] [address] [place] [address] MCV (RBC) [Entitic vol] 93.2 fL Normal 79.4-94.8 [facility] Comment on above: Performed By: #### M RSA #### [address] [address] Monocytes/100 WBC (Bld) 7.0 % Normal [facility] Comment on above: Performed By: #### M RSA #### [facility] [address] [place], [place] [address] Platelet mean volume (Bld) [Entitic vol] 11.5 fL Normal 9.4-12.3 [facility] Comment on above: Performed By: #### M RSA #### [address] [address] Platelets (Bld) [#/Vol] 217 thou/cmm Normal 182-369 [facility] Comment on above: Performed By: #### M RSA #### [facility] [address] [place] [address] RBC (Bld) [#/Vol] 5.17 mil/cmm Normal 3.93-5.22 [facility] Comment on above: Performed By: #### M RSA #### [facility] [address] [place] [address] RDW SD 44.3 fl Normal 36.4-46.3 [facility] Comment on above: Performed By: #### M RSA #### [facility] [address] [place] [address] Seg Neutrophil 48.8 % Normal [facility] Comment on above: Performed By: #### M RSA #### [facility] [address] [place] [address] WBC (Bld) [#/Vol] 7.00 thou/cmm Normal 3.98-10.04 [facility] Comment on above: Performed By: #### M RSA #### [facility] [address] [place] [address] Magnesium Bloodon 08-06-2019 Magnesium [Mass/Vol] 2.1 mg/dL Normal 1.6-2.6 [facility] Comment on above: Performed By: #### M RSA #### [facility] [address] [place] [address] PROGRESSon 08-06-2019 PROGRESS HNO ID: [id number] Author: Lupe Antony ([place]) Service: Neurosurgery Author Type: Physician Exercise Equipment Repair Technician Type: Progress Notes Filed: 08/06/2019 12:36 PM Note Text: PROGRESS NOTE NEUROSURGERY SERVICE DATE: 08/06/2019 SERVICE TIME: 7:45 AM Subjective INTERVAL HPI Lumbar drain became disconnected briefly early this morning (around 5 AM) and drained freely onto her bed sheets for a short period of time. Currently reassembled and working appropriately. Patient reports that her headache has been worse since that time, but it has been more mild prior to this episode of excessive draining. No dizziness, nausea, vomiting. Patient tolerating diet. Current Facility-Administered Medications Medication Dose Route Frequency - topiramate 50 mg tab(s) (TOPAMAX) 50 mg ORAL DAILY (6 AM) - topiramate 75 mg tab(s) (TOPAMAX) 75 mg ORAL DAILY AT 6 PM - levothyroxine 75 mcg tab(s) (SYNTHROID) 75 mcg ORAL DAILY - atenolol 50 mg tab(s) (TENORMIN) 50 mg ORAL DAILY - docusate sodium 100 mg cap(s) (COLACE) 100 mg ORAL BID - potassium chloride ER 20-40 mEq tab(s) (K-DUR, KLOR-CON) 20-40 mEq ORAL/FEEDING TUBE PRN Or - potassium chloride iv piggyback 20 mEq/100 mL 20 mEq INTRAVENOUS PRN - magnesium sulfate in water 2 g in sterile water 50 ml 2 g INTRAVENOUS PRN - sodium phosphate 45 mmol in NaCl 0.9% 250 mL 45 mmol INTRAVENOUS PRN - calcium gluconate 4 g in NaCl 0.9% 250 mL 4 g INTRAVENOUS PRN - acetaminophen 650 mg tab(s) (TYLENOL) 650 mg ORAL q 4 H PRN - fentaNYL 50 mcg/mL 25-50 mcg injection (SUBLIMAZE) 25-50 mcg INTRAVENOUS q 1 H PRN - metoclopramide HCl 10 mg injection (REGLAN) 10 mg INTRAVENOUS q 6 H PRN - ibuprofen 400 mg tab(s) (MOTRIN) 400 mg ORAL TID PRN - Lip Protectant with Sunscreen SPF 15 1 application Stick (Blistex) 1 application TOPICAL PRN Objective Physical Exam Performed: General - Alert, cooperative, appropriate Resp - even, unlabored GI - abdomen soft, non-tender, non-distended HEENT - incision c/d/i. No reaccumulation of pseudomeningocele behind the right ear. Back - lumbar drain in place. Neuro - A+O x3, PERRL, makes eye contact, speech clear, cranial nerves 2-12 intact, BELL x4 strong and equal. VITAL SIGNS 24 HOUR REVIEW: Patient Vitals for the past 24 hrs: BP Temp Temp src Pulse Resp SpO2 08/06/19 1000 143/76 ? ? 68 20 99 % 08/06/19 0900 110/50 ? ? 68 18 98 % 08/06/19 0811 126/68 ? ? 67 ? ? 08/06/19 0600 139/66 ? ? 74 22 100 % 08/06/19 0500 135/56 ? ? 62 16 100 % 08/06/19 0400 154/66 36.3 ?C (97.3 ?F) Temporal Art 73 17 99 % 08/06/19 0300 109/61 ? ? (!) 59 17 100 % 08/06/19 0200 138/72 ? ? (!) 59 18 100 % 08/06/19 0100 116/60 ? ? (!) 59 17 98 % 08/06/19 0000 121/70 ? ? 60 18 100 % 08/05/19 2300 129/68 36.5 ?C (97.7 ?F) Temporal Art 60 17 99 % 08/05/19 2000 117/53 36.2 ?C (97.2 ?F) Temporal 69 19 97 % 08/05/19 1900 125/63 ? ? 71 21 98 % 08/05/19 1800 136/57 ? ? 72 24 97 % 08/05/19 1700 135/62 ? ? 68 22 99 % 08/05/19 1600 108/61 ? ? 66 24 99 % 08/05/19 1400 128/74 ? ? 68 20 100 % LABS: CBC, Coags, BMP, Mg, Phos Recent Labs 08/06/19 0408 08/05/19 0420 08/04/19 0425 08/04/19 0310 WBC 7.00 6.26 -- 7.03 HB 14.9 14.5 -- 13.0 HCT 48.2* 46.3* -- 40.3 PLT 217 209 -- 208 NA 135* 135* 134* -- K 3.9 3.9 4.1 -- CHLOR 105 106 105 -- CO2 25 23 23 -- BUN 18 19* 20* -- CREAT 0.66 0.81 0.83 -- GLUC 95 92 106* -- CA 9.1 8.7 9.0 -- MG 2.1 2.1 2.2 -- P 4.1 4.0 5.1* -- DATA: Diagnostic tests reviewed for today's visit: Most recent labs and imaging results. Assessment/Plan 74 year old female hx meningioma resection in 2018; subsequent pseudomeningocele and LB drain placement - s/p wound revision/crani dural patch POD#3: -Continue management of LB drain as ordered (drain 5 ccs/hr). Will reassess on Wednesday. -Pain control -Neurochecks -PT/OT -OK for DVT prophylaxis * No resolved hospital problems. * Medication and Non-Pharmacologic VTE Prophylaxis/Anticoagulants 08/03/191699 vte pharmacologic prophylaxis contraindicated (tx,oh) 08/03/191699 pneumatic compression stockings (tx,oh) 08/03/191699 activity - mobilize patient (tx,ar) VTE Prophylaxis: VTE prophylaxis appropriate SIGNATURE: Lupe Antony PA-C PATIENT NAME: Kate Oreilly DATE: August 06, 2019 TIME: 12:29 PM PAGER/CONTACT #: Pager: [phone] [facility] PROGRESS HNO ID: [id number] Author: Leta Mcrae DO Service: Neurology ICU Author Type: Resident Type: Progress Notes Filed: 08/06/2019 9:06 AM Note Text: -- Attestation signed by Iban Conway at 08/06/2019 9:44 AM PATIENT NAME: Kate Oreilly PATIENT STAFF COORDINATION OF CRITICAL CARE I have reviewed the progress note obtained and documented by the resident, Dr Mcrae and I personally participated in the parker components. I have discussed the case and management of the patient's care. The following comments revise or confirm relevant parker components of the note. I have repeated the examination and confirm the findings except as documented below. PATIENT PROBLEMS I REVIEWED, REVISED AND/OR INITIATED: Active Problems: Trigeminal neuralgia Pseudomeningocele Resolved Problems: * No resolved hospital problems. * PLAN Lumbar drainage per nsgy recs Pain control Neurochecks Pt/ot and oob Scd and sqh once ok per nsgy Please see the documented [id number] plan in the updated problem list. [facility] Staff Physician note of personal involvement in Care: I was personally involved in the care of this patient. The required my full attention and direct personal management. Iban Conway MD Staff, Neurointensive Care [facility] [place], [facility] PAGER: [phone] (2NICU for production planning manager) DATE of SERVICE: August 06, 2019 TIME of SERVICE: 9:43 AM This is an electronically created document. If printed, please do not remove from the chart or modify printed copy. -- SERVICE DATE: 08/06/2019 SERVICE TIME: 8:00 AM NEURO ICU PROGRESS NOTE DATE OF ADMISSION: 07/26/2019 Subjective Hospital Course: 08/04: Patient had wound revision and repair of dural leak yesterday performed by neurosurgery. 08/05: no acute events. Patient feeling well Events Since Last Note: Per nursing staff, patient had rolled over and lumbar drain was leaking from site. It was adjusted and no longer leaking. Neurosurgery was notified. Objective BP 139/66 Pulse 74 Temp 36.3 ?C (97.3 ?F) (Temporal Artery) Resp 22 Ht 170.2 cm (5' 7) Wt 85.7 kg (188 lb 15 oz) LMP (LMP Unknown) SpO2 100% BMI 29.59 kg/m? Weight change: Neuro: GCS: Eyes: 4. Spontaneous Verbal: 5: Oriented Motor: 6: Obeys Motor commands Total: 15 CRANIAL NERVES: Normal mood and affect. CNII-XII grossly intact. MOTOR STRENGTH: Upper and lower extremity 5/5 bilaterally SENSATION: Intact light touch COORDINATION: Finger-to- nose-finger intact bilaterally CV: RRR Pulm: lungs CTAB, Mechanical Ventilation: No. Supplemental Oxygen: No GI/: abdomen soft, NT, ND Skin/Extremities: Edema- No Peripheral pulses- Present all extremities. Lumbar drain present Diagnostic tests reviewed for today's visit: Most recent labs Lines, Drains, and Airways Line Peripheral 08/04/19 0731 Assessment Short Left Wrist 20 Gauge 2 days Drain Drain/Tube 07/28/19 2130 Lumbar Midline Back 8 days ICU Checklist Last Documented/Reviewed time: 07/30/2019 12:57 PM ICU Delirium Status: CAM Positive - new, will place orders Restraint Status: None ICU Mobility-Pt Has Been Out of Bed: Yes Line Status: None Ventilator: None Gregorio Status: None GI/Stress Ulcer Prophylaxis: None - not required Nutrition is at Goal: Yes VTE Prophylaxis: Chemoprophylaxis: No chemoprophylaxis No Chemoprophylaxis Reason: Bleeding risk Pressure Injury Status: None ICU Plan Reviewed with RN: Yes ICU Family Update in Last 24 Hours: Patient updated ICU Disposition- Is Patient Clinically Ready to Transfer to [facility] or SDU?: No Discharge Planning: Home PERSONAL INVOLVEMENT IN CARE: Reviewing initiation, responses and adjustments to therapies, coordination of care, and updating family with Staff Physician, Dr. Conway. 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 Current Assessment AND Plan S/p dural leak repair Lumbar drain management per neurosurg Discussion with neurosurg today regarding dvt ppx Medication and Non-Pharmacologic VTE Prophylaxis/Anticoagulants 08/03/19 1700 vte pharmacologic prophylaxis contraindicated (tx,ar) 08/03/19 1700 pneumatic compression stockings ([place], [place]) 08/03/19 1700 activity - mobilize patient ([place], [place]) 07/26/19 1715 pneumatic compression stockings ([place], [place]) VTE Prophylaxis: VTE prophylaxis appropriate Plan of care discussed with: Provider, RN, Patient SIGNATURE: Leta Mcrae DO PATIENT NAME: Kate Oreilly DATE: August 06, 2019 TIME: 8:00 AM PAGER/CONTACT #: [phone] Normal [facility] Phosphorus Bloodon 0 Phosphate [Mass/Vol] 4.1 mg/dL Normal 2.5-4.9 [facility] Comment on above: Performed By: #### M RSA #### [facility] [address] [place], [place] [address] Basic Panelon 08-05-2019 Creatinine [Mass/Vol] 0.81 mg/dL Normal 0.51-0.95 [facility] Comment on above: Result Comment: Use of this assay is not recommended for patients undergoing treatment with phenindione, due to the potential for falsely depressed results. Performed By: #### M RSA #### [facility] [address] [place], [place] [address] Anion gap [Moles/Vol] 10 mmol/L Normal 8-16 [facility] Comment on above: Performed By: #### M RSA #### [facility] [address] [place], [place] [address] Calcium [Mass/Vol] 8.7 mg/dL Normal 8.5-10.1 [facility] Comment on above: Performed By: #### M RSA #### [facility] [address] [place], [place] [address] CO2 [Moles/Vol] 23 mmol/L Normal 21-32 [facility] Comment on above: Performed By: #### M RSA #### [facility] [address] [place], [place] [address] Glucose [Mass/Vol] 92 mg/dL Normal 70-99 [facility] Comment on above: Performed By: #### M RSA #### [facility] [address] [place], [place] [address] Urea nitrogen [Mass/Vol] 19 mg/dL High 7-18 [facility] Comment on above: Performed By: #### M RSA #### [facility] [address] [place], [place] [address] Chloride [Moles/Vol] 106 mmol/L Normal 98-107 [facility] Comment on above: Performed By: #### M RSA #### [facility] [address] [place], [place] [address] Potassium [Moles/Vol] 3.9 mmol/L Normal 3.5-5.1 [facility] Comment on above: Performed By: #### M RSA #### [facility] [address] [place] [address] Sodium [Moles/Vol] 135 mmol/L Low 136-145 [facility] Comment on above: Performed By: #### M RSA #### [facility] [address] [place] [address] Hemogram/Diffon 08-05-2019 Abs Immature Grans 0.02 thou/cmm Normal 0.00-0.05 [facility] Comment on above: Performed By: #### M RSA #### [facility] [address] [place] [address] Abs Neut (ANC) 2.98 thou/cmm Normal 1.56-6.13 [facility] Comment on above: Performed By: #### M RSA #### [place] [address] Abs. Baso 0.06 thou/cmm Normal 0.01-0.08 [facility] Comment on above: Performed By: #### M RSA #### [place] [address] Abs. [place] 0.44 thou/cmm Normal 0.27-0.70 [facility] Comment on above: Performed By: #### M RSA #### [place] [address] Basophils/100 WBC (Bld) 1.0 % Normal [facility] Comment on above: Performed By: #### M RSA #### [place] [address] Eosinophils (Bld) [#/Vol] 0.11 thou/cmm Normal 0.00-0.31 [facility] Comment on above: Performed By: #### M RSA #### [place] [address] Eosinophils/100 WBC (Bld) 1.8 % Normal [facility] Comment on above: Performed By: #### M RSA #### [place] [address] Erythrocyte distribution width (RBC) [Ratio] 12.9 % Normal 11.7-14.4 [facility] Comment on above: Performed By: #### M RSA #### [facility] [address] [place] [address] Hematocrit (Bld) [Volume fraction] 46.3 % High 34.1-44.9 [facility] Comment on above: Performed By: #### M RSA #### [place] [address] Hemoglobin (Bld) [Mass/Vol] 14.5 g/dL Normal 11.2-15.7 [facility] Comment on above: Performed By: #### M RSA #### [place] [address] Immature Grans 0.30 % Normal [facility] Comment on above: Performed By: #### M RSA #### [place] [address] Lymphocytes (Bld) [#/Vol] 2.65 thou/cmm Normal 1.18-3.74 [facility] Comment on above: Performed By: #### M RSA #### [place] [address] Lymphocytes/100 WBC (Bld) 42.3 % Normal [facility] Comment on above: Performed By: #### M RSA #### [place] [address] MCH (RBC) [Entitic mass] 29.1 pg Normal 25.6-32.2 [facility] Comment on above: Performed By: #### M RSA #### [place] [address] MCHC (RBC) [Mass/Vol] 31.3 % Low 31.6-34.8 [facility] Comment on above: Performed By: #### M RSA #### [place] [address] MCV (RBC) [Entitic vol] 93.0 fL Normal 79.4-94.8 [facility] Comment on above: Performed By: #### M RSA #### [address], [place] [address] Monocytes/100 WBC (Bld) 7.0 % Normal [facility] Comment on above: Performed By: #### M RSA #### [facility] [address] [place] [address] Platelet mean volume (Bld) [Entitic vol] 11.1 fL Normal 9.4-12.3 [facility] Comment on above: Performed By: #### M RSA #### [place] [address] Platelets (Bld) [#/Vol] 209 thou/cmm Normal 182-369 [facility] Comment on above: Performed By: #### M RSA #### [place] [address] RBC (Bld) [#/Vol] 4.98 mil/cmm Normal 3.93-5.22 [facility] Comment on above: Performed By: #### M RSA #### [place] [address] RDW SD 44.0 fl Normal 36.4-46.3 [facility] Comment on above: Performed By: #### M RSA #### [place] [address] Seg Neutrophil 47.6 % Normal [facility] Comment on above: Performed By: #### M RSA #### [place] [address] WBC (Bld) [#/Vol] 6.26 thou/cmm Normal 3.98-10.04 [facility] Comment on above: Performed By: #### M RSA #### [facility] [address] [place] [address] Magnesium Bloodon 08-05-2019 Magnesium [Mass/Vol] 2.1 mg/dL Normal 1.6-2.6 [facility] Comment on above: Performed By: #### M RSA #### [place] [address] PROGRESSon 08-05-2019 PROGRESS HNO ID: [id number] Author: Leta Mcrae DO Service: Neurology ICU Author Type: Resident Type: Progress Notes Filed: 08/05/2019 11:34 AM Note Text: -- Attestation signed by Iban Conway at 08/05/2019 8:59 PM PATIENT NAME: Kate Oreilly PATIENT STAFF COORDINATION OF CRITICAL CARE I have reviewed the progress note obtained and documented by the resident, Dr Mcrae and I personally participated in the parker components. I have discussed the case and management of the patient's care. The following comments revise or confirm relevant parker components of the note. I have repeated the examination and confirm the findings except as documented below. PATIENT PROBLEMS I REVIEWED, REVISED AND/OR INITIATED: Active Problems: Trigeminal neuralgia Pseudomeningocele Resolved Problems: * No resolved hospital problems. * PLAN Lumbar drainage per nsgy [facility] Pain control Neurochecks Pt/ot and oob Please see the documented errimu-ds-perrib plan in the updated problem list. [facility] Staff Physician note of personal involvement in Care: I was personally involved in the care of this patient. The required my full attention and direct personal management. Iban Conway MD Staff, Neurointensive Care Neurological [place], [facility] PAGER: [phone] (2NICU for production planning manager) DATE of SERVICE: August 05, 2019 TIME of SERVICE: 12:57 PM This is an electronically created document. If printed, please do not remove from the chart or modify printed copy. -- SERVICE DATE: 08/05/2019 SERVICE TIME: 11:34 AM NEURO ICU PROGRESS NOTE DATE OF ADMISSION: 07/26/2019 Subjective Hospital Course: 08/04: Patient had wound revision and repair of dural leak yesterday performed by neurosurgery. Events Since Last Note: No acute events overnight. Patient feeling well this AM. Objective BP 130/66 Pulse 63 Temp 36.5 ?C (97.7 ?F) Resp 15 Ht 170.2 cm (5' 7) Wt 85.7 kg (188 lb 15 oz) LMP (LMP Unknown) SpO2 99% BMI 29.59 kg/m? Weight change: Neuro: GCS: Eyes: 4. Spontaneous Verbal: 5: Oriented Motor: 6: Obeys Motor commands Total: 15 CRANIAL NERVES: Normal mood and affect. CNII-XII grossly intact. MOTOR STRENGTH: Upper and lower extremity 5/5 bilaterally SENSATION: Intact light touch COORDINATION: Finger-to- nose-finger intact bilaterally CV: RRR Pulm: lungs CTAB, Mechanical Ventilation: No. Supplemental Oxygen: No GI/: abdomen soft, NT, ND Skin/Extremities: Edema- No Peripheral pulses- Present all extremities. Lumbar drain present Diagnostic tests reviewed for today's visit: Most recent labs and imaging results. Lines, Drains, and Airways Line Peripheral 08/04/19 0731 Assessment Short Left Wrist 20 Gauge 1 day Drain Drain/Tube 07/28/19 2130 Lumbar Midline Back 7 days ICU Checklist Last Documented/Reviewed time: 07/30/2019 12:57 PM ICU Delirium Status: CAM Positive - new, will place orders Restraint Status: None ICU Mobility-Pt Has Been Out of Bed: Yes Line Status: None Ventilator: None Gregorio Status: None GI/Stress Ulcer Prophylaxis: None - not required Nutrition is at Goal: Yes VTE Prophylaxis: Chemoprophylaxis: No chemoprophylaxis No Chemoprophylaxis Reason: Bleeding risk Pressure Injury Status: None ICU Plan Reviewed with RN: Yes ICU Family Update in Last 24 Hours: Patient updated ICU Disposition- Is Patient Clinically Ready to Transfer to [facility] or SDU?: No Discharge Planning: Home PERSONAL INVOLVEMENT IN CARE: Reviewing initiation, responses and adjustments to therapies, coordination of care, and updating family with Staff Physician, Dr. Conway. Assessment AND Plan Active Hospital Problems as of 08/05/2019 Noted - Resolved Hospital Trigeminal neuralgia 05/18/2005 - Present Current Assessment AND Plan Pain control Pseudomeningocele 07/27/2019 - Present Current Assessment AND Plan S/p dural leak repair Draining 5 cc/hr per neurosurg neurosurg following Medication and Non-Pharmacologic VTE Prophylaxis/Anticoagulants 08/03/19 170 vte pharmacologic prophylaxis contraindicated ([place], [place]) 08/03/19 170 pneumatic compression stockings ([place]) 08/03/19 170 activity - mobilize patient ([place]) 07/26/19 171 pneumatic compression stockings ([place]) VTE Prophylaxis: VTE prophylaxis appropriate Plan of care discussed with: Provider, RN, Patient SIGNATURE: Leta Mcrae DO PATIENT NAME: Kate Oreilly DATE: August 05, 2019 TIME: 11:34 AM PAGER/CONTACT #: [phone] [facility] PROGRESS HNO ID: [id number] Author: Evelio Harrison Service: Neurosurgery Author Type: Physician Type: Progress Notes Filed: 08/05/2019 10:45 AM Note Text: Attending Neurosurgeon Note : Pt sitting up in a chair. Mild RÍOS. Stll on drainage protocol from lumbar thecal sac. The retrosigmoid surgical incision site is dry and flat with no fluid accumulation. Evelio Harrison MD [facility] Phosphorus Bloodon 0 Phosphate [Mass/Vol] 4.0 mg/dL Normal 2.5-4.9 [facility] Comment on above: Performed By: #### M [facility] #### [place] [address] ALLIED HEALTHon 08-04-2019 ALLIED HEALTH HNO ID: [id number] Author: Mary MartínezRn) CORTEZ Urbina Service: Nursing Author Type: Registered Nurse Type: Allied Health Filed: 08/04/2019 11:49 AM Note Text: RAJ NURSE PROGRESS NOTE SERVICE DATE: 08/04/2019 SERVICE TIME: 11:47 AM REFERRED BY: Raj Stephenson Rn VISIT WITH: Patient and Family Member REASON FOR VISIT: Coping issues, Length of stay, Lonliness, Pain and Serious illness/trauma CONDITION: Neuromuscular and Surgical INTERVENTIONS: Emotional support, Stress booklets and Therapeutic listening TIME SPENT (minutes): 60 Up in chair and receptive to a Raj Nurse visit. 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 Expressed concerns about managing at home. Encouragement and reassurance given. SIGNATURE: Mary Urbina RN PATIENT NAME: Kate Oreilly DATE: August 04, 2019 TIME: 11:47 AM Normal [facility] Basic Panelon 08-04-2019 Creatinine [Mass/Vol] 0.83 mg/dL Normal 0.51-0.95 [facility] Comment on above: Result Comment: Use of this assay is not recommended for patients undergoing treatment with phenindione, due to the potential for falsely depressed results. Performed By: #### T &S #### [place] [address] Anion gap [Moles/Vol] 10 mmol/L Normal 8-16 [facility] Comment on above: Performed By: #### T &S #### [address] [address] CO2 [Moles/Vol] 23 mmol/L Normal 21-32 [facility] Comment on above: Performed By: #### T &S #### [facility] [address] [place], [place] [address] Urea nitrogen [Mass/Vol] 20 mg/dL High 7-18 [facility] Comment on above: Performed By: #### T &S #### [facility] [address] [place], [place] [address] Calcium [Mass/Vol] 9.0 mg/dL Normal 8.5-10.1 [facility] Comment on above: Performed By: #### T &S #### [address] [address] Glucose [Mass/Vol] 106 mg/dL High 70-99 [facility] Comment on above: Performed By: #### T &S #### [facility] [address] [place] [address] Chloride [Moles/Vol] 105 mmol/L Normal 98-107 [facility] Comment on above: Performed By: #### T &S #### [facility] [address] [place] [address] Potassium [Moles/Vol] 4.1 mmol/L Normal 3.5-5.1 [facility] Comment on above: Performed By: #### T &S #### [facility] [address] [place] [address] Sodium [Moles/Vol] 134 mmol/L Low 136-145 [facility] Comment on above: Performed By: #### T &S #### [facility] [address] [place] [address] Hemogram/Diffon 08-04-2019 Abs Immature Grans 0.02 thou/cmm Normal 0.00-0.05 [facility] Comment on above: Performed By: #### T &S #### [facility] [address] [place] [address] Abs Neut (ANC) 5.09 thou/cmm Normal 1.56-6.13 [facility] Comment on above: Performed By: #### T &S #### [facility] [address] [place] [address] Abs. Baso 0.02 thou/cmm Normal 0.01-0.08 [facility] Comment on above: Performed By: #### T &S #### [facility] [address] [place] [address] Abs. [place] 0.35 thou/cmm Normal 0.27-0.70 [facility] Comment on above: Performed By: #### T &S #### [facility] [address] [place] [address] Basophils/100 WBC (Bld) 0.3 % Normal [facility] Comment on above: Performed By: #### T &S #### [facility] [address] [place] [address] Eosinophils (Bld) [#/Vol] 0.00 thou/cmm Normal 0.00-0.31 [facility] Comment on above: Performed By: #### T &S #### [facility] [address] [place] [address] Eosinophils/100 WBC (Bld) 0.0 % Normal [facility] Comment on above: Performed By: #### T &S #### [facility] [address] [place] [address] Erythrocyte distribution width (RBC) [Ratio] 12.8 % Normal 11.7-14.4 [facility] Comment on above: Performed By: #### T &S #### [facility] [address] [place] [address] Hematocrit (Bld) [Volume fraction] 40.3 % Normal 34.1-44.9 [facility] Comment on above: Performed By: #### T &S #### [facility] [address] [place] [address] Hemoglobin (Bld) [Mass/Vol] 13.0 g/dL Normal 11.2-15.7 [facility] Comment on above: Performed By: #### T &S #### [place] [address] Immature Grans 0.30 % Normal [facility] Comment on above: Performed By: #### T &S #### [place] [address] Lymphocytes (Bld) [#/Vol] 1.55 thou/cmm Normal 1.18-3.74 [facility] Comment on above: Performed By: #### T &S #### [facility] [address] [place] [address] Lymphocytes/100 WBC (Bld) 22.0 % Normal [facility] Comment on above: Performed By: #### T &S #### [facility] [address] [place] [address] MCH (RBC) [Entitic mass] 29.5 pg Normal 25.6-32.2 [facility] Comment on above: Performed By: #### T &S #### [facility] [address] [place] [address] MCHC (RBC) [Mass/Vol] 32.3 % Normal 31.6-34.8 [facility] Comment on above: Performed By: #### T &S #### [facility] [address] [place] [address] MCV (RBC) [Entitic vol] 91.4 fL Normal 79.4-94.8 [facility] Comment on above: Performed By: #### T &S #### [facility] [address] [place] [address] Monocytes/100 WBC (Bld) 5.0 % Normal [facility] Comment on above: Performed By: #### T &S #### [facility] [address] [place] [address] Platelet mean volume (Bld) [Entitic vol] 11.6 fL Normal 9.4-12.3 [facility] Comment on above: Performed By: #### T &S #### [facility] [address] [place] [address] Platelets (Bld) [#/Vol] 208 thou/cmm Normal 182-369 [facility] Comment on above: Performed By: #### T &S #### [facility] [address] [place] [address] RBC (Bld) [#/Vol] 4.41 mil/cmm Normal 3.93-5.22 [facility] Comment on above: Performed By: #### T &S #### [facility] [address] [place] [address] RDW SD 42.6 fl Normal 36.4-46.3 [facility] Comment on above: Performed By: #### T &S #### [facility] [address] [place] [address] Seg Neutrophil 72.4 % Normal [facility] Comment on above: Performed By: #### T &S #### [facility] [address] [place] [address] WBC (Bld) [#/Vol] 7.03 thou/cmm Normal 3.98-10.04 [facility] Comment on above: Performed By: #### T &S #### [facility] [address] [place] [id number] Magnesium Bloodon 08-04-2019 Magnesium [Mass/Vol] 2.2 mg/dL Normal 1.6-2.6 [facility] Comment on above: Performed By: #### M [facility] #### [place] [id number] NUTRITIONon 08-04-2019 NUTRITION HNO ID: [id number] Author: Katherine Dai RD Service: Nutrition Therapy Author Type: Registered Dietitian Type: Nutrition Filed: 08/04/2019 2:22 PM Note Text: NUTRITION THERAPY SCREEN NOTE Follow up screen SERVICE DATE: 08/04/2019 SERVICE TIME: 2:00 PM Care Plan: Continue current diet. D/C ensure CL. Pt states it is too sweet for her and she does not feel she needs it as she is eating better now that she is having less nausea. + BM a few days ago per pt Discharge Recommendations: Diet Diet: Regular Intake History: Nutrition Intake Prior to Admission: Greater than 75% estimated energy needs greater than or equal to 1 month Current Intake: Greater than 75% estimated energy needs over: 5 days Current Diet: DIET REGULAR Anthropometrics: Height: 170.2 cm (5' 7) Weight: 85.7 kg (188 lb 15 oz) Usual Weight: 93 kg (205 lb 0.4 oz) BMI: 29.59 kg/m2: Overweight Weight change percentage over time: insignficant weight change SIGNATURE: Katherine Dai RD PATIENT NAME: Kate Oreilly DATE: August 04, 2019 TIME: 2:16 PM PAGER: [phone] Normal [facility] OPERATIVE NOon 08-04-2019 OPERATIVE NO HNO ID: [id number] Author: Evelio Harrison Service: Neurosurgery Author Type: Physician Type: Operative Report Filed: 08/06/2019 7:23 AM Note Text: [facility] - Operative Report KATE OREILLY : 1945 AGE: 74. SEX: F PATIENT TYPE: I HOSP SVC: ICU LOCATION: [id number] ATTENDING PHYSICIAN: MILLI JUÁREZ CSN NUMBER: [id number] DATE OF SURGERY/PROCEDURE: 08/03/2019 INCISION/PROCEDURE START TIME: 3:42 PM INCISION CLOSE/PROCEDURE END TIME: 4:55 PM PREOPERATIVE DIAGNOSIS: Postoperative pseudomeningocele, right suboccipital. POSTOPERATIVE DIAGNOSIS: Postoperative pseudomeningocele, right suboccipital. SURGEON: Evelio Harrison MD [employer]ING [employer]VAGE WORKER: Dr. Harrison. SURGERY/PROCEDURE: Right retrosigmoid repair of pseudomeningocele. ANESTHESIA: General. PRINCIPAL SURGEON: Dr. Milli Juárez. FINDINGS: An autograft from the same incision was used to repair the dural leak. DuraGen and DuraSeal were used to cover the area followed by titanium mesh plate placement. Procedure provided routine assistance to Dr. Juárez throughout the operation from the beginning to the end of the procedure. Evelio Harrison MD GFK:[id number] /[id number] Normal [facility] PROGRESSon 08-04-2019 PROGRESS HNO ID: [id number] Author: Carmelo Hardy Service: Neurology ICU Author Type: Physician Type: Progress Notes Filed: 08/04/2019 3:41 PM Note Text: SERVICE DATE: 08/04/2019 SERVICE TIME: 3:16 PM NEURO ICU PROGRESS NOTE DATE OF ADMISSION: 07/26/2019 Subjective Events Since Last Note: Patient had wound revision and repair of dural leak yesterday performed by neurosurgery. Patient complaining of on-going headache and has not tried to sit up since. Denies N/V. Objective BP 115/53 Pulse 60 Temp 36.6 ?C (97.9 ?F) Resp 14 Ht 170.2 cm (5' 7) Wt 85.7 kg (188 lb 15 oz) LMP (LMP Unknown) SpO2 100% BMI 29.59 kg/m? Weight change: Neuro: GCS: Eyes: 4. Spontaneous Verbal: 5: Oriented Motor: 6: Obeys Motor commands Total: 15 CRANIAL NERVES: Normal mood and affect. CNII-XII grossly intact. MOTOR STRENGTH: Upper and lower extremity 5/5 bilaterally SENSATION: Intact light touch COORDINATION: Finger-to- nose-finger intact bilaterally CV: RRR. Normal S1S2 Pulm: lungs CTAB, Mechanical Ventilation: No. Supplemental Oxygen: No GI/: Abdomen soft, non-tender, non-distended. Skin/Extremities: Edema- No Peripheral pulses- Present all extremities Wounds/Drsgs- no Diagnostic tests reviewed for today's visit: Most recent labs Lines, Drains, and Airways Line Peripheral 08/03/19 1510 Right Hand 18 Gauge less than 1 day Peripheral 08/04/19 0731 Assessment Short Left Wrist 20 Gauge less than 1 day Drain Drain/Tube 07/28/19 2130 Lumbar Midline Back 6 days ICU Checklist Last Documented/Reviewed time: 07/30/2019 12:57 PM ICU Delirium Status: CAM Positive - new, will place orders Restraint Status: None ICU Mobility-Pt Has Been Out of Bed: Yes Line Status: None Ventilator: None Gregorio Status: None GI/Stress Ulcer Prophylaxis: None - not required Nutrition is at Goal: Yes VTE Prophylaxis: Chemoprophylaxis: No chemoprophylaxis No Chemoprophylaxis Reason: Bleeding risk Pressure Injury Status: None ICU Plan Reviewed with RN: Yes ICU Family Update in Last 24 Hours: Patient updated ICU Disposition- Is Patient Clinically Ready to Transfer to [facility] or SDU?: No Discharge Planning: Home PERSONAL INVOLVEMENT IN CARE: Reviewing initiation, responses and adjustments to therapies, coordination of care, and updating family with Staff Physician, Dr. Hardy. Assessment AND Plan Active Hospital Problems as of 08/04/2019 Noted - Resolved Hospital Trigeminal neuralgia 05/18/2005 - Present Current Assessment AND Plan Pain control Pseudomeningocele 07/27/2019 - Present Current Assessment AND Plan S/p dural leak repair Draining 5 cc/hr per neurosurg neurosurg following Medication and Non-Pharmacologic VTE Prophylaxis/Anticoagulants 08/03/19 170 vte pharmacologic prophylaxis contraindicated (fl,oh) 08/03/19 170 pneumatic compression stockings (fl,oh) 08/03/19 170 activity - mobilize patient (fl,oh) 07/26/19 171 vte pharmacologic prophylaxis contraindicated (fl,oh) 07/26/19 171 pneumatic compression stockings (fl,oh) 07/26/19 171 activity - mobilize patient (fl,oh) VTE Prophylaxis: VTE prophylaxis appropriate Plan of care discussed with: Provider, RN, Patient SIGNATURE: Leta Mcrae DO PATIENT NAME: Kate Oreilly DATE: August 04, 2019 TIME: 3:16 PM PAGER/CONTACT #: [phone] NSICU STAFF ADDENDUM Carmelo Hardy MD Pt seen and examined independently. Labs/vitals/imaging reviewed personally. Agree with above, reflecting my direct input. S/p wound revision without complication. Still draining via LD. Monitor neurologically. C/w drain care as per Nsgy. Full supportive care as above. PERSONAL INVOLVEMENT IN CARE: ? ?Patient/Family Updated: Patient and/or family were updated regarding the goals of care,?medical plan for the day, library consultant recommendations, medical disposition and current medical condition/prognosis as and if clinically indicated. All questions and concerns were answered and addressed at this juncture. I agree with the resident MD note as above, except as otherwise indicated; my additional comments, if necessary, are in bold. ? This patient has a high probability of sudden, clinically significant deterioration, which requires the highest level of physician preparedness to intervene urgently. I managed/supervised life or organ supporting interventions that required frequent physician assessment. I devoted my full attention to the direct care of this patient for the amount of time indicated below. Time I spent with family or surrogate(s) is included only if the patient was incapable of providing the necessary information or participating in medical decision making. Time devoted to teaching and to any procedures I billed separately is not included. ? Critical Care Documentation: The patient has the following organ/system impairment(s): As above Time spent providing critical care services: 31 minutes. ? SIGNATURE: Carmelo Hardy MD PATIENT NAME: Kate Oreilly DATE: 08/04/19 TIME: 3:40 PM PAGER/CONTACT #: [phone] [facility] PROGRESS HNO ID: [id number] Author: Emily Tenorio (Lora) LORA Martinez Service: Neurosurgery Author Type: Physician Exercise Equipment Repair Technician Type: Progress Notes Filed: 08/04/2019 8:13 AM Note Text: Neurosurgery Progress Note SERVICE DATE: 08/04/2019 SUBJECTIVE: Awake and alert; states h/a mild, but c/o significant head pain when trying to lift head off the pillow. No n/v. Has not yet eaten - not particularly hungry OBJECTIVE: Vitals: Temp (24hrs), Av.6 ?C (97.8 ?F), Min:36.4 ?C (97.5 ?F), Max:37.1 ?C (98.8 ?F) BP 115/53 Pulse 60 Temp 36.6 ?C (97.9 ?F) Resp 14 Ht 170.2 cm (5' 7) Wt 85.7 kg (188 lb 15 oz) LMP (LMP Unknown) SpO2 100% BMI 29.59 kg/m? O2 Therapy: Nasal Cannula IANDO: Date 08/03/19 07 - 08/04/19 0659 08/04/19 07 - 08/05/19 0659 Shift 8985-7011 2485-7329 2503-6786 24 Hour Total 2496-5318 9177-9306 3042-2895 24 Hour Total INTAKE Shift Total OUTPUT Urine 250 250 Void (ml) 250 250 Tubes 24 10 40 74 5 5 Drain/Tube Output (Drain/Tube 07/28/19 2130 Lumbar Midline Back) 24 10 40 74 5 5 Shift Total 24 10 290 324 5 5 Weight (kg) 85.7 85.7 85.7 85.7 85.7 85.7 85.7 85.7 MEDICATIONS Current Facility-Administered Medications Medication Dose Route Frequency - NaCl 0.9% iv infusion 75 mL/hr INTRAVENOUS CONTINUOUS - ibuprofen 400 mg tab(s) (MOTRIN) 400 mg ORAL TID PRN - metoclopramide HCl 10 mg injection (REGLAN) 10 mg INTRAVENOUS q 6 H PRN - potassium chloride ER 20-40 mEq tab(s) (K-DUR, KLOR-CON) 20-40 mEq ORAL/FEEDING TUBE PRN Or - potassium chloride iv piggyback 20 mEq/100 mL 20 mEq INTRAVENOUS PRN - magnesium sulfate in water 2 g in sterile water 50 ml 2 g INTRAVENOUS PRN - sodium phosphate 45 mmol in NaCl 0.9% 250 mL 45 mmol INTRAVENOUS PRN - calcium gluconate 4 g in NaCl 0.9% 250 mL 4 g INTRAVENOUS PRN - acetaminophen 650 mg tab(s) (TYLENOL) 650 mg ORAL q 4 H PRN - fentaNYL 50 mcg/mL 25-50 mcg injection (SUBLIMAZE) 25-50 mcg INTRAVENOUS q 1 H PRN - topiramate 50 mg tab(s) (TOPAMAX) 50 mg ORAL DAILY (6 AM) - topiramate 75 mg tab(s) (TOPAMAX) 75 mg ORAL DAILY AT 6 PM - levothyroxine 75 mcg tab(s) (SYNTHROID) 75 mcg ORAL DAILY - atenolol 50 mg tab(s) (TENORMIN) 50 mg ORAL DAILY - docusate sodium 100 mg cap(s) (COLACE) 100 mg ORAL BID Labs: Recent Labs 08/04/19 0425 08/04/19 0310 08/03/19 0425 NA 134* -- 136 K 4.1 -- 3.7 CHLOR 105 -- 105 CO2 23 -- 23 BUN 20* -- 16 CREAT 0.83 -- 0.80 GLUC 106* -- 98 ANION 10 -- 12 CA 9.0 -- 8.9 MG 2.2 -- 2.3 P 5.1* -- 3.9 WBC -- 7.03 6.38 HB -- 13.0 14.4 HCT -- 40.3 44.8 PLT -- 208 224 Exam: GENERAL: No distress, Alert NEURO: orientedx3; speech clear and fluent; msp grossly intact and equal HEENT: dressing dry and intact; perrl/eomi; no droop LUNGS: Unlabored breathing BACK: Incision C/D/I, drain: clear output CARDIAC: Regular rate and rhythm as above ASSESSMENT AND PLAN: Active Hospital Problems Diagnosis Date Noted - Pseudomeningocele 07/27/2019 - Trigeminal neuralgia 05/18/2005 Chronic 74 year old female hx meningioma resection in 2018; subsequent pseudomeningocele and LB drain placement - s/p wound revision/crani dural patch POD#1 - LB drain continues - order to open and drain 5cc/hr - pain control - encourage diet SIGNATURE: LORA Garrido PATIENT NAME: Kate Oreilly DATE: August 04, 2019 TIME: 8:09 AM Pager: [phone] Normal [facility] Phosphorus Bloodon 0 Phosphate [Mass/Vol] 5.1 mg/dL High 2.5-4.9 [facility] Comment on above: Performed By: #### M RSA #### [facility] [address] [place] [id number] THERAPY NTon 08-04-2019 THERAPY NT HNO ID: [id number] Author: Diann (Otr/Lonnie Ba Service: Occupational Therapy Author Type: Occupational Therapist Type: Therapy (PT/OT/Speech/Resp) Filed: 08/04/2019 11:37 AM Note Text: Occupational Therapy Evaluation SERVICE DATE: 08/04/2019 SERVICE TIME: 852 to 14 ROOM: [place] [address] Recommended Discharge Disposition: Home OT Recommended Discharge Disposition Comments: Anticipate home OT at D/C for IADLs, safety and high level cognition. Pt normally does all the IADLs at home, driving and her can't physically assist Anticipated Discharge Needs: Physical Assist at Home Physical Assist at Home for: Cleaning;Laundry;Meals;Irma pping;Transportation Supervision at Home due to: Decreased safety awareness OT Recommendations to Nursing: ADL?s in chair;To Bathroom for ADL?s /and or Toileting;OOB for meals;Transfer to Chair;With assist of 1 person OT 6 Clicks Score: 19 Precautions/Activity Restrictions: Fall Risk;Lines/Tubes/Drains Precaution/Activity Restriction Comments: Lumbar drain, IV Isolation Type: None ASSESSMENT: Patient presents with deficits in grooming, UE bathing/dressing, LE bathing/dressing, functional transfers, functional mobility, decreased safety awareness, and decreased insight to deficits after admitted for pseudomengiocele with repair. Requires skilled OT for to maximize independence with out of bed activites of daily living, high level cognition and functional transfers Patient Disposition at Start of Session: Supine in Bed;Call Miles in Reach Patient Disposition at End of Session: OOB in Chair;Call Miles in Reach Tolerated Full Session Occupational Therapy Problem List: Cognitive Deficit;Education Deficit;Safety Deficits;Impaired Self Care;Decreased Activity Tolerance;Decreased Strength;Functional Mobility Impairment;Balance Impaired Patient /Caregiver Goals: Go Home;Care For Self Goals for Plan of Care: Grooming with: Modified Independent Upper Body Bathing with: Modified Independent Upper Body Dressing with: Modified Independent Lower Body Bathing with: Stand By Assistance Lower Body Dressing with: Stand By Assistance Toilet Hygiene with: Stand By Assistance Chair Transfer with: Stand By Assistance Tolerate (minutes of functional activity): 15 Functional Activity with: Contact Guard Assistance Additional Goal 1: Pt to demo good safety with OOB ADLs Additional Goal 2: Pt to complete iADL simulation with 100% accuracy Progress Toward Goals: Progressing as expected Rehab Potential: Excellent PLAN: Treatment Frequency (times per week): 5(3-5) Current admission Treatment Interventions: Education;Self Care / Home Management;Strengthening;F unctional Mobility Training;Balance Training;Cognitive Training Plan of Care developed with: Patient TREATMENT INTERVENTIONS: Therapy Diagnosis: Muscle Weakness (generalized);Decreased activities of daily living (ADL);Reduced mobility-other;Unsteadines s on feet;Signs and Symptoms Involving Cognitive Functions and Awareness Interventions Provided: Evaluation $ Evaluation-Moderate (47220) Billed Units: 1 unit OT Evaluation Moderate Complexity: Occupational Profile - Extended review of patient's medical record completed including patient's physical, cognitive, and psycho-social history (please see current hospital course of evaluation). Occupational Performance - Pt presents with deficits in grooming, UE bathing/dressing, LE bathing/dressing, functional transfers, functional mobility, decreased safety awareness, decreased insight into deficits Complexity in Clinical Decision Making - The extent of clinical reasoning was moderate, several treatment options present for the patient, need for modification during the evaluation was minimal/moderate, comorbidities affecting occupational performance: trigeminal neuralgia, meningiona resection 04/2019, HTN, pneumonia Total Treatment Time (minutes): 21 SUBJECTIVE: Current Hospital Course: Chart reviewed; Pt has surgery 05/12/[address] Juárez for trigeminal neuralgia and did very well until had illness about one month ago with severe coughing, and sinus congestion that lasted 2-3 weeks. Pt states the swelling behind right ear 10 days ago and has gradually increased in size. 07/27 PROCEDURE: FINE NEEDLE ASPIRATION Aspiration of: right pseudomeningocele posterior auricular Indication: Definitive diagnosis of pseudomeningocele 07/28 SUBARACHNOID DRAIN 08/03 Procedure(s): Right retrosigmoid repair of pseudomeningocele Reason for Occupational Therapy Consult: Progressive mobility protocol Relevant Past Medical History: trigeminal neuralgia, meningiona resection 04/2019, HTN, pneumonia Patient Report: Agreeable to work with therapy with encouragement Pain: 10 headache Home Environment Patient Lives With: Spouse Assistance Available: 24 Hour Entry To Home: Stairs;With Rail Number Of Stairs Into Home: 7 Number Of Stairs To Bed/Bath: flight Stairs to Bed/Bath with: Bilateral Rail Tub/Shower Type: walk in shower Laundry: main floor Equipment Owned: Cane;Grab Bars-Shower;Wheeled Walker;Duplex Trimmer;Shower Bench(quad cane, hurricane) Prior Functional Level: Within Functional Limits Prior Functional Level Comments: Patient reports not using a device to ambulate, independent with self care OBJECTIVE: Cognition/Communication Deficits Responsiveness: Alert;Awake Follows Commands: 1-step Commands Attention Deficits: Distractible;Divided Memory Deficits: (tangential hisotrian ) Executive Function Deficits: Safety Awareness;Problem Solving;Insight to Deficits;Judgement Judgement Deficit: Minimal impairment Insight to Deficits: Minimal impairment Problem Solving Deficit: Minimal impairment Safety Awareness Deficit: Minimal impairment CURRENT FUNCTIONAL STATUS: Current Activities of Daily Living Assist Level Feeding Independent Grooming Contact Guard Assistance Bathing Upper Body Contact Guard Assistance Bathing Lower Body Minimal Assistance Dressing Upper Body Contact Guard Assistance Dressing Lower Body Minimal Assistance Toileting Contact Guard Assistance Functional Mobility Assist Level Rolling Supine to Sit Minimal Assistance Sit to Supine Scooting Sit to Stand Contact Guard Assistance Stand to Sit Contact Guard Assistance Bed to Chair Toilet/Commode Minimal Assistance(BSC) Functional Mobility Contact Guard Assistance Functional Mobility Comments: Pt did not want to walk past the curtain in her room Balance: Dynamic Standing;Static Standing Hand Dominance: Right Range of Motion: WFL Strength: WFL Static Standing Balance: Fair Able to stand unsupported without UE support and without LOB for 1 - 2 min Dynamic Standing Balance: Fair Stand independently unsupported, weight shift, and reach ipsilaterally, LOB when crossing midline Edu pt on fall prevention / up with assistance. Pt left in room in chair with calllight within reach. Please see discipline specific clinical documentation flowsheet for complete details for this therapy evaluation/treatment. SIGNATURE: KAEL Berrios/Nolberto PATIENT NAME: Kate Oreilly DATE: August 04, 2019 TIME: 11:33 AM Normal [facility] THERAPY NT HNO ID: [id number] Author: Nicole (PtPopeye Landaverde Service: Physical Therapy Author Type: Physical Therapist Type: Therapy (PT/OT/Speech/Resp) Filed: 08/04/2019 9:34 AM Note Text: Physical Therapy Evaluation SERVICE DATE: 08/04/2019 SERVICE TIME: 856 to 911 ROOM: [place] [address] Recommended Discharge Disposition: Home PT Recommended Discharge Disposition Comments: Patient to benefit from Home PT to increase strength, balance and activity tolerance for improved independence and safety with functional mobility Anticipated Discharge Needs: Physical Assist at Home Physical Assist at Home for: Cleaning;Laundry;Meals;Irma pping;Transportation PT Recommendations to Nursing: To bathroom;OOB for Meals;Ambulate without device;With assist of 1 person Device: Hand Held Assist PT 6 Clicks Score: 18 Precautions/Activity Restrictions: Fall Risk;Lines/Tubes/Drains Precaution/Activity Restriction Comments: Lumbar drain, IV Isolation Type: None ASSESSMENT : This patient was admitted for neck pain and worsening swelling at incision site, has the past medical history of meningioma resection 04/2019, trigeminal neuralgia, HTN impacting current functional level, as well as the social factors complicating the discharge of multiple steps in home. This patient is below baseline functioning of independent ambulation and ADL's and will benefit from continued skilled therapy in the hospital for treatment of the following body systems/impairments: musculoskeletal, integumentary, cardiopulmonary, neuromuscular (gait, transfers, bed mobility, balance, safety and strengthening). Patient Disposition at Start of Session: Supine in Bed;Call Miles in Reach Patient Disposition at End of Session: OOB in Chair;Call Miles in Reach;Nursing Personnel Present Tolerated Full Session Physical Therapy Problem List: Pain;Decreased Strength;Balance Impaired Patient /Caregiver Goals: Go Home Goals for Plan of Care: Able to perform HEP with: Independent Transfer supine to/from sit with: Independent Transfer sit to/from stand with: Independent Ambulate with: Independent Distance: 50 Device: No Device Ambulate up and down steps with: Supervision Number of steps: 4 Device: Rail Rehab Potential: Good PLAN: Treatment Frequency (times per week): 5(3-5) Current admission Treatment Interventions: Energy Conservation Training;Strengthening;Fun ctional Mobility Training;Balance Training Plan of Care developed with: Patient TREATMENT INTERVENTIONS: Therapy Diagnosis: Muscle Weakness (generalized);Unsteadiness on feet Interventions Provided: Evaluation $ Evaluation-Moderate (26834) Billed Units: 1 unit History and examination of body systems see assessment section above. This patient?s clinical presentation is evolving. The patient required a moderate complexity evaluation. Cues for patient to slowly lower self into chair to improve eccentric control for improved safety with sitting and reduce pain in neck associated with abrupt sitting. Educated patient on importance of getting up and walking with nursing staff to progress mobility and promote healing. Total Treatment Time (minutes): 15 SUBJECTIVE: Current Hospital Course: Chart reviewed; 74 year old female presents with neck pain and increased swlling at incision site. Recent meningioma resection 04/2019. Subsequent pseudomeningocele and lumbar drain placement, s/p wound revision and cranioplasty with dural patch 08/03/2019. Reason for Physical Therapy Consult : eval and treat Relevant Past Medical History: trigeminal neuralgia, meningiona resection 04/2019, HTN, pneumonia Patient Report: It hurts to lift my head up from the pillow. Patient agreeable to therapy session. Reported pain in neck with rotation, no dizziness reported. Home Environment Patient Lives With: Spouse Assistance Available: 24 Hour Entry To Home: Stairs;With Rail Number Of Stairs Into Home: 7 Number Of Stairs To Bed/Bath: flight Stairs to Bed/Bath with: Bilateral Rail Tub/Shower Type: walk in shower Laundry: main floor Equipment Owned: Cane;Grab Bars-Shower;Wheeled Walker;Duplex Trimmer;Shower Bench(quad cane, hurricane) Prior Functional Level: Within Functional Limits Prior Functional Level Comments: Patient reports not using a device to ambulate, independent with self care OBJECTIVE: Range of Motion: WFL Strength: Lower Extremity Comments Right Lower Extremity Strength Comments: 4-/5 Left Lower Extremity Strength Comments: 4-/5 CURRENT FUNCTIONAL STATUS: Current Functional Mobility Assist Level Additional Information Rolling Supine to Sit Contact Guard Assistance Sit to Supine Supervision Scooting Contact Guard Assistance Sit to Stand Contact Guard Assistance Stand to Sit Contact Guard Assistance Bed to Chair Independent Toilet/Commode Gait Contact Guard Assistance Gait Device: Hand Held Assist Gait Distance (feet): several steps to BSC, 6 ft Stairs Curb Step Car Transfer General Gait Deviations: Shonda decreased;Step length decreased;Non-functional gait speed;Shuffling Gait Balance: Static Standing;Dynamic Standing Static Standing Balance: Good- / Fair+ Able to maintain standing balance against minimal resistance Dynamic Standing Balance: Good- / Fair+ Stand independently unsupported, able to weight shift across midline minimally Activity Tolerance: Standing Activity Standing Activity: gait Standing Activity Tolerance (in minutes): 3 JH-HLM: 6: Walk 10 steps or more Please see discipline specific clinical documentation flowsheet for complete details for this therapy evaluation/treatment. SIGNATURE: Nicole Landaverde PT PATIENT NAME: Kate Oreilly DATE: August 04, 2019 TIME: 9:29 AM Normal [facility] ANES Dyana 08-03-2019 ANES POST HNO ID: [id number] Author: Mario Washington Service: Anesthesiology Author Type: Physician Type: Anesthesia PostOp Filed: 08/03/2019 7:04 PM Note Text: POST ANESTHESIA EVALUATION NOTE SERVICE DATE: 08/03/2019 SERVICE TIME: 7:04 PM : 1945 Vitals: 08/03/19 0400 08/03/19 0723 08/03/19 1200 08/03/19 170 Temp: 36.4 ?C (97.5 ?F) 36.6 ?C (97.9 ?F) 36.4 ?C (97.5 ?F) 37.1 ?C (98.8 ?F) 08/03/19171408/03/19172908/03/19174408/03/19 1800 Arterial BP 1: 168/65 177/64 180/57 179/59 BP: 158/65 159/61 154/67 151/67 08/03/19171408/03/19 17308/03/19 17408/03/19 1800 Pulse: 65 63 62 64 08/03/19 17108/03/19 17308/03/19 17408/03/19 1800 Resp: 19 15 11 9 08/03/19171408/03/19172908/03/19 17408/03/19 1800 SpO2: 100% 100% 100% 100% Validated Vital Signs: Yes POST ANES STATUS: No apparent anesthetic complications. The patient is appropriately hydrated with stable respiratory and cardiovascular status. Patient has safe and adequate airway control. The patient has appropriate pain relief and no significant post operative nausea or vomiting. The patient has achieved baseline mental status. Intra-Operative Events: No Significant Anesthesia Events Further assessment by Anesthesia Service: None Other Remarks: SIGNATURE: Mario Washington DO PATIENT NAME: Kate Oreilly DATE: August 03, 2019 TIME: 7:04 PM PAGER/CONTACT #: [phone] [facility] ANES PREOPon 08-03-2019 ANES PREOP HNO ID: [id number] Author: Reynaldo Holly Service: Anesthesiology Author Type: Physician Type: Anesthesia PreOp Filed: 08/03/2019 2:49 PM Note Text: ANESTHESIOLOGY DAY OF SURGERY NOTE SERVICE DATE: 08/03/2019 SERVICE TIME: 2:48 PM : 1945 Procedure(s) (LRB): CRANIOPLASTY FOR SKULL DEFECT =< 5CM DIAMETER (Right) SECONDARY REPAIR OF DURA FOR CSF LEAK, POST SKULL SURGERY W/ GRAFT (Right) Surgeon(s): Milli Harrison Estimated body mass index is 29.59 kg/m? as calculated from the following: Height as of this encounter: 170.2 cm (5' 7). Weight as of this encounter: 85.7 kg (188 lb 15 oz). Most recent hematocrit and potassium results: Hematocrit 44.8 08/03/2019 Potassium 3.7 08/03/2019 ANES DOS/PREOP NOTE: Vitals: 08/03/19 0723 08/03/19 0900 08/03/19 1000 08/03/19 1200 BP: 126/71 130/69 109/87 Pulse: 64 60 (!) 55 Resp: 18 14 14 Temp: 36.6 ?C (97.9 ?F) 36.4 ?C (97.5 ?F) TempSrc: Temporal Artery SpO2: 97% 97% 98% Weight: Height: ACTIVE PROBLEM LIST Other Chronic Sinusitis Trigeminal Neuralgia FAMILY HISTORY OF GI NEOPLASM Hyperlipidemia, Mixed Hypothyroidism Unspecified Sleep Apnea Vitamin D deficiency Meningioma (Hcc) Essential Hypertension, Benign Low Back Pain Obesity, Class I, Bmi 30-34.9 Pseudomeningocele PAST MEDICAL HISTORY Diagnosis Date - Diverticulosis of colon (without mention of hemorrhage) - Family history of malignant neoplasm of gastrointestinal tract - Head injury 4/12 trip fall - HTN (hypertension) - Hypothyroidism - Internal hemorrhoids without mention of complication - SREEKANTH (obstructive sleep apnea) - Other and unspecified hyperlipidemia - Pneumonia 07/2011 - Snoring - Trigeminal neuralgia PAST SURGICAL HISTORY Procedure Laterality Date - BX OF BREAST; INCISIONAL Left LATE Bx of breast, incisional - COLONOSCOP W/ OR W/O [facility] SPEC 03/12/08 - COLONOSCOP W/ OR W/O [facility] SPEC 02/05/14 Colonoscopy - COLONOSCOP W/ OR W/O [facility] SPEC 05/20/15 Colonoscopy - COLONOSCOP W/ OR W/O [facility] SPEC 01/23/2019 Colonoscopy - PAST SURGICAL HISTORY OF 09/03/2010 CRANIECTOMY EXCISON TUMOR, INFRATENTORIAL OR POST FOSSA, MENIGIOMA - PAST SURGICAL HISTORY OF 05/06/2011 right MVD fro [place] - REMOVAL OF TONSILS,<12 Y/O A CHILD Tonsillectomy - REMV CATARACT EXTRACAP,INSERT LENS 2012 Cataract Extraction with PC IOL - REMV CATARACT EXTRACAP,INSERT LENS 2012 Cataract Extraction with PC IOL FAMILY HISTORY Problem Relation Age of Onset - Alzheimer's Disease Mother - Heart Mother pacemaker - Stroke Mother - Heart Father VALVE REPLACEMENT,PACE MAKER - Heart Sister - Heart Brother - Heart Brother - Colon Cancer Sister - Breast Cancer Sister - Breast Cancer Daughter Social History: Social History Tobacco Use - Smoking status: Never Smoker - Smokeless tobacco: Never Used Substance Use Topics - Alcohol use: No - Drug use: No No current facility-administered medications on file prior to encounter. Current Outpatient Medications on File Prior to Encounter Medication Sig - acetaminophen (TYLENOL) 500 mg tablet Take 500 mg by mouth every 6 hours as needed for Pain. - topiramate (TOPAMAX) 50 mg tablet Take 1 tablet by mouth twice daily. (Patient taking differently: Take 50 mg by mouth twice daily. 50 mg in AM, 75 mg HS ) - topiramate (TOPAMAX) 25 mg tablet Take 1 tablet by mouth twice daily. (Patient taking differently: Take 25 mg by mouth once daily. 50 mg in AM, 75 mg HS ) - levothyroxine (SYNTHROID) 75 mcg tablet Take 1 tablet by mouth once daily. - atenolol (TENORMIN) 50 mg tablet Take 1 tablet by mouth once daily. Current Facility-Administered Medications Medication Dose Route Frequency Provider Last Rate Last Dose - metoclopramide HCl 10 mg injection (REGLAN) 10 mg INTRAVENOUS q 6 H PRN Leta (Res) Clementina DO 10 mg at 08/02/19 1223 - potassium chloride ER 20-40 mEq tab(s) (K-DUR, KLOR-CON) 20-40 mEq ORAL/FEEDING TUBE PRN Tylor (Pa) Claudio Or - potassium chloride iv piggyback 20 mEq/100 mL 20 mEq INTRAVENOUS PRN Tylor (Pa) Claudio - magnesium sulfate in water 2 g in sterile water 50 ml 2 g INTRAVENOUS PRN Tylor (Pa) Claudio - sodium phosphate 45 mmol in NaCl 0.9% 250 mL 45 mmol INTRAVENOUS PRN Tylor (Pa) Claudio - calcium gluconate 4 g in NaCl 0.9% 250 mL 4 g INTRAVENOUS PRN Tylor (Pa) Claudio - acetaminophen 650 mg tab(s) (TYLENOL) 650 mg ORAL q 4 H PRN Tylor (Pa) Claudio 650 mg at 08/03/19 0418 - fentaNYL 50 mcg/mL 25-50 mcg injection (SUBLIMAZE) 25-50 mcg INTRAVENOUS q 1 H PRN Tylor (Pa) Claudio 25 mcg at 08/01/19 1812 - topiramate 50 mg tab(s) (TOPAMAX) 50 mg ORAL DAILY (6 AM) Milli Juárez 50 mg at 08/03/19 0629 - topiramate 75 mg tab(s) (TOPAMAX) 75 mg ORAL DAILY AT 6 PM Milli Juárez 75 mg at 08/02/19 1852 - levothyroxine 75 mcg tab(s) (SYNTHROID) 75 mcg ORAL DAILY Milli Juárez 75 mcg at 08/03/19 0727 - atenolol 50 mg tab(s) (TENORMIN) 50 mg ORAL DAILY Milli Juárez 50 mg at 08/03/19 0727 - docusate sodium 100 mg cap(s) (COLACE) 100 mg ORAL BID Milli Juárez 100 mg at 08/01/19 0834 Allergies: ALLERGIES Allergen Reactions - Amoxicillin Rash - Carbamazepine Rash - Codeine Vomiting - Percocet [Oxycodone* Vomiting - Tegretol [Carbamaze* Vomiting Dizziness, couldn't see straight Skin reaction when went in sun - Tramadol Vomiting - Vicodin [Hydrocodon* Vomiting - Vioxx [Rofecoxib] Rash - Demerol [Meperidine* Intolerance - Neurontin [Gabapent* Intolerance Dizziness, feeling like I couldn't work - Topamax [Topiramate] Intolerance Flushed, red skin DOS EXAM: Adequate NPO status: Yes Anesthetic risks, benefits, alternatives, personnel and consent discussed: Yes Patient agrees to proceed: Yes Previous Anesthesia: No history of adverse event. Airway Assessment: MP 3; Neck ROM: Full ROM without neurologic symptoms; Airway Evaluation: Thick neck Symptoms of Sleep Apnea: None Dentition: Poor dentition Additional Physical Exam: Lungs: Patient health status unchanged since recent history and physical. See history and physical for exam findings. Cardiac: Patient health status unchanged since recent history and physical. See history and physical for exam findings. Additional Pertinent Findings: N/A Blood Products: Not anticipated for this procedure. Anesthetic Plan: General, Standard ASA Monitors and Standard ASA Monitors Pain Management Plan: Parenteral or Oral and per Surgical Service ASA Class: 4 Other Medical Problems: None Chronic Beta Andre medication administered within 24 hours: N/A I have interviewed and examined the patient. I have reviewed the medical record and/or the pre-anesthesia evaluation, pertinent labs, and test results. Significant changes in the patient's condition since the History and Physical, not otherwise documented in primary service progress notes: No This contains updated information obtained within 48 hours of Surgery/Procedure. SIGNATURE: Reynaldo Holly MD PATIENT NAME: Kate Oreilly DATE: August 03, 2019 TIME: 2:48 PM CSN: [id number] [facility] BRIEF OP NOTon 08-03-2019 BRIEF OP NOT HNO ID: [id number] Author: Milli Juárez Service: Neurosurgery Author Type: Physician Type: Brief Op Note Filed: 08/03/2019 4:55 PM Note Text: BRIEF OP NOTE LOG ID: [id number] Surgery/Procedure Date: 08/03/2019 Incision/Procedure Start Time: 3:42 PM Incision Close/Procedure End Time: 4:45PM Surgeon(s)/Proceduralist(s ) and Exercise Equipment Repair Technician(s): Surgeon(s) and Role: * Milli Juárez - Primary * Evelio Harrison - Assisting Procedure(s): Right retrosigmoid repair of pseudomeningocele Anesthesia: General Findings: Autograft from same incision used to repair dural leak. Duragen and dural sealant used to cover dura. Titanium mesh plate placed. Estimated Blood Loss: 10 mls Specimens: None Complications: None Pre-Op/Pre-Procedure Diagnosis: post-surgical pseudomeningocele Post-Op/Post-Procedure Diagnosis: post-surgical pseudomeningocele SIGNATURE: Milli Juárez MD PATIENT NAME: Kate Oreilly DATE: August 03, 2019 TIME: 4:54 PM PAGER/CONTACT #: [phone] Normal [facility] Basic Panelon 08-03-2019 Creatinine [Mass/Vol] 0.80 mg/dL Normal 0.51-0.95 [facility] Comment on above: Result Comment: Use of this assay is not recommended for patients undergoing treatment with phenindione, due to the potential for falsely depressed results. Performed By: #### T &S #### [address] [address] Anion gap [Moles/Vol] 12 mmol/L Normal 8-16 [facility] Comment on above: Performed By: #### T &S #### [address] [address] Calcium [Mass/Vol] 8.9 mg/dL Normal 8.5-10.1 [facility] Comment on above: Performed By: #### T &S #### [address] [address] CO2 [Moles/Vol] 23 mmol/L Normal 21-32 [facility] Comment on above: Performed By: #### T &S #### [address] [address] Glucose [Mass/Vol] 98 mg/dL Normal 70-99 [facility] Comment on above: Performed By: #### T &S #### [address] [address] Urea nitrogen [Mass/Vol] 16 mg/dL Normal 7-18 [facility] Comment on above: Performed By: #### T &S #### [address] [address] Chloride [Moles/Vol] 105 mmol/L Normal 98-107 [facility] Comment on above: Performed By: #### T &S #### [facility] [address] [place], [place] [address] Potassium [Moles/Vol] 3.7 mmol/L Normal 3.5-5.1 [facility] Comment on above: Performed By: #### T &S #### [facility] [address] [place], [place] [address] Sodium [Moles/Vol] 136 mmol/L Normal 136-145 [facility] Comment on above: Performed By: #### T &S #### [facility] [address] [place], [place] [address] CONSULT PROGon 08-03-2019 CONSULT PROG HNO ID: [id number] Author: Tana Tello Service: Neurosurgery Author Type: Nurse Practitioner Type: Consult Progress Note Filed: 08/03/2019 4:20 PM Note Text: PROGRESS NOTE NEUROSURGERY SERVICE DATE: 08/03/2019 SERVICE TIME: 1440 Patient seen with attending Subjective INTERVAL HPI C/o headache with drainage from lumbar draining. No new symptoms Plan for head wound revision Current Facility-Administered Medications Medication Dose Route Frequency - [MAR Hold due to Transfer] topiramate 50 mg tab(s) (TOPAMAX) 50 mg ORAL DAILY (6 AM) - [MAR Hold due to Transfer] topiramate 75 mg tab(s) (TOPAMAX) 75 mg ORAL DAILY AT 6 PM - [MAR Hold due to Transfer] levothyroxine 75 mcg tab(s) (SYNTHROID) 75 mcg ORAL DAILY - [MAR Hold due to Transfer] atenolol 50 mg tab(s) (TENORMIN) 50 mg ORAL DAILY - [MAR Hold due to Transfer] docusate sodium 100 mg cap(s) (COLACE) 100 mg ORAL BID - [MAR Hold due to Transfer] potassium chloride ER 20-40 mEq tab(s) (K-DUR, KLOR-CON) 20-40 mEq ORAL/FEEDING TUBE PRN Or - [MAR Hold due to Transfer] potassium chloride iv piggyback 20 mEq/100 mL 20 mEq INTRAVENOUS PRN - [MAR Hold due to Transfer] magnesium sulfate in water 2 g in sterile water 50 ml 2 g INTRAVENOUS PRN - [MAR Hold due to Transfer] sodium phosphate 45 mmol in NaCl 0.9% 250 mL 45 mmol INTRAVENOUS PRN - [MAR Hold due to Transfer] calcium gluconate 4 g in NaCl 0.9% 250 mL 4 g INTRAVENOUS PRN - [MAR Hold due to Transfer] acetaminophen 650 mg tab(s) (TYLENOL) 650 mg ORAL q 4 H PRN - [MAR Hold due to Transfer] fentaNYL 50 mcg/mL 25-50 mcg injection (SUBLIMAZE) 25-50 mcg INTRAVENOUS q 1 H PRN - [MAR Hold due to Transfer] metoclopramide HCl 10 mg injection (REGLAN) 10 mg INTRAVENOUS q 6 H PRN - bacitracin 500 unit/gram topical ointment X (OR/PROCEDURE) PRN - lidocaine 1%-EPINEPHrine 1:100,000 injection X (OR/PROCEDURE) PRN - NaCl 0.9% irrigation solution X (OR/PROCEDURE) PRN - thrombin topical solution X (OR/PROCEDURE) PRN - bacitracin injection X (OR/PROCEDURE) PRN - vancomycin iv piggyback 1 g in D5W 200 mL (VANCOCIN) X (OR/PROCEDURE) CONTINUOUS Objective Physical Exam Performed: General - calm, pleasant Resp - even unlabored GI - abdomen soft NT, ND Skin - lumbar drain in place, right Head incision nearly flat, no redness or drainage Neuro - A+O x3, PERRL, makes eye contact, speech clear, BELL, strength 4/5 BUE and BLE VITAL SIGNS 24 HOUR REVIEW: Patient Vitals for the past 24 hrs: BP Temp Temp src Pulse Resp SpO2 08/03/19 1400 127/60 ? ? 61 16 98 % 08/03/19 1300 112/58 ? ? (!) 56 13 97 % 08/03/19 1200 109/87 36.4 ?C (97.5 ?F) ? (!) 55 14 98 % 08/03/19 1000 130/69 ? ? 60 14 97 % 08/03/19 0900 126/71 ? ? 64 18 97 % 08/03/19 0723 ? 36.6 ?C (97.9 ?F) Temporal Art ? ? ? 08/03/19 0700 117/72 ? ? 65 13 97 % 08/03/19 0600 106/64 ? ? 63 17 98 % 08/03/19 0500 110/65 ? ? (!) 56 16 97 % 08/03/19 0400 ? 36.4 ?C (97.5 ?F) Temporal Art ? ? ? 08/03/19 0300 95/53 ? ? (!) 57 16 96 % 08/03/19 0200 109/66 ? ? 63 18 98 % 08/03/19 0100 (!) 94/46 ? ? 64 22 97 % 08/03/19 0000 (!) 109/48 36.8 ?C (98.2 ?F) Temporal Art 64 17 96 % 08/02/19 2300 120/63 ? ? 61 18 94 % 08/02/19 2200 114/56 ? ? 68 17 97 % 08/02/19 2100 (!) 98/44 ? ? 65 18 96 % 08/02/19 2000 (!) 110/48 37 ?C (98.6 ?F) ? 67 15 97 % 08/02/19 1800 114/61 36.6 ?C (97.9 ?F) ? 70 17 98 % 08/02/19 1700 118/65 ? ? 63 17 99 % Assessment/Plan Active Problems: Trigeminal neuralgia POA: Yes Assessment AND Plan: Pseudomeningocele POA: Yes Assessment AND Plan: 74 yo with lumbar drain from pseudomeningocele Plan for R head surgical site revision today with DR Juárez and Dr Harrison Continue lumbar drain after surgery, but keep clamped with intent to remove 24 hours post surgery Ok for diet after surgery Keep in ICU until lumbar drain removed Disposition - likely home over weekend D/w dtr at bedside Resolved Problems: * No resolved hospital problems. * Medication and Non-Pharmacologic VTE Prophylaxis/Anticoagulants 07/26/191714 vte pharmacologic prophylaxis contraindicated (tx,oh) 07/26/191714 pneumatic compression stockings (tx,oh) 07/26/191714 activity - mobilize patient (tx,ar) VTE Prophylaxis: VTE prophylaxis appropriate SIGNATURE: Tana Tello APRN.CNP PATIENT NAME: Kate Oreilly DATE: August 03, 2019 TIME: 4:12 PM PAGER/CONTACT #: [phone] Normal [facility] Hemogram/Diffon 08-03-2019 Abs Immature Grans 0.01 thou/cmm Normal 0.00-0.05 [facility] Comment on above: Performed By: #### T &S #### [facility] [address] [place] [address] Abs Neut (ANC) 2.72 thou/cmm Normal 1.56-6.13 [facility] Comment on above: Performed By: #### T &S #### [facility] [address] [place] [address] Abs. Baso 0.05 thou/cmm Normal 0.01-0.08 [facility] Comment on above: Performed By: #### T &S #### [facility] [address] [place] [address] Abs. [place] 0.45 thou/cmm Normal 0.27-0.70 [facility] Comment on above: Performed By: #### T &S #### [facility] [address] [place] [address] Basophils/100 WBC (Bld) 0.8 % Normal [facility] Comment on above: Performed By: #### T &S #### [facility] [address] [place] [address] Eosinophils (Bld) [#/Vol] 0.10 thou/cmm Normal 0.00-0.31 [facility] Comment on above: Performed By: #### T &S #### [place] [address] Eosinophils/100 WBC (Bld) 1.6 % Normal [facility] Comment on above: Performed By: #### T &S #### [facility] [address] [place] [address] Erythrocyte distribution width (RBC) [Ratio] 13.0 % Normal 11.7-14.4 [facility] Comment on above: Performed By: #### T &S #### [facility] [address] [place] [address] Hematocrit (Bld) [Volume fraction] 44.8 % Normal 34.1-44.9 [facility] Comment on above: Performed By: #### T &S #### [place] [address] Hemoglobin (Bld) [Mass/Vol] 14.4 g/dL Normal 11.2-15.7 [facility] Comment on above: Performed By: #### T &S #### [facility] [address] [place] [address] Immature Grans 0.20 % Normal [facility] Comment on above: Performed By: #### T &S #### [facility] [address] [place], [place] [address] Lymphocytes (Bld) [#/Vol] 3.04 thou/cmm Normal 1.18-3.74 [facility] Comment on above: Performed By: #### T &S #### [facility] [address] [place] [address] Lymphocytes/100 WBC (Bld) 47.6 % Normal [facility] Comment on above: Performed By: #### T &S #### [facility] [address] [place] [address] MCH (RBC) [Entitic mass] 29.4 pg Normal 25.6-32.2 [facility] Comment on above: Performed By: #### T &S #### [facility] [address] [place] [address] MCHC (RBC) [Mass/Vol] 32.1 % Normal 31.6-34.8 [facility] Comment on above: Performed By: #### T &S #### [facility] [address] [place] [address] MCV (RBC) [Entitic vol] 91.6 fL Normal 79.4-94.8 [facility] Comment on above: Performed By: #### T &S #### [facility] [address] [place] [address] Monocytes/100 WBC (Bld) 7.1 % Normal [facility] Comment on above: Performed By: #### T &S #### [facility] [address] [place] [address] Platelet mean volume (Bld) [Entitic vol] 11.3 fL Normal 9.4-12.3 [facility] Comment on above: Performed By: #### T &S #### [facility] [address] [place] [address] Platelets (Bld) [#/Vol] 224 thou/cmm Normal 182-369 [facility] Comment on above: Performed By: #### T &S #### [facility] [address] [place] [address] RBC (Bld) [#/Vol] 4.89 mil/cmm Normal 3.93-5.22 [facility] Comment on above: Performed By: #### T &S #### [facility] [address] [place] [address] RDW SD 43.7 fl Normal 36.4-46.3 [facility] Comment on above: Performed By: #### T &S #### [facility] [address] [place] [address] Seg Neutrophil 42.7 % Normal [facility] Comment on above: Performed By: #### T &S #### [facility] [address] [place] [address] WBC (Bld) [#/Vol] 6.38 thou/cmm Normal 3.98-10.04 [facility] Comment on above: Performed By: #### T &S #### [facility] [address] [place] [address] Magnesium Bloodon 08-03-2019 Magnesium [Mass/Vol] 2.3 mg/dL Normal 1.6-2.6 [facility] Comment on above: Performed By: #### T &S #### [place] [address] NURSING PROGon 08-03-2019 NURSING PROG HNO ID: [id number] Author: Luna (Rn) CORTEZ Brooks Service: Nursing Author Type: Registered Nurse Type: Nursing Progress Note Filed: 08/03/2019 9:54 PM Note Text: Nursing Progress Note Patient Name: Kate Oreilly Patient Location: [id number] Event(s) / Intervention Note: The patient was observed having the following problems: lumbar drain not draining. The time of the event occurred at: 1830. The following intervention(s) were initiated: Dr. Juárez at bedside at 1900 and was notified that drain was not currently draining. Dr. Juárez ordered RN to keep drain clamped for 2 hours ( until 2100). After the initiated interventions, the following observation(s) were made: Patient is AANDOx3 and vitals are stable. This note was completed by: Luna Brooks RN [facility] OPERATIVE NOon 08-03-2019 OPERATIVE NO HNO ID: [id number] Author: Milli Juárez Service: Neurosurgery Author Type: Physician Type: Operative Report Filed: 08/04/2019 1:42 PM Note Text: OPERATIVE/PROCEDURE REPORT LOG ID: [id number] SURGERY/PROCEDURE DATE: 08/03/2019 INCISION/PROCEDURE START TIME: 3:42 PM INCISION CLOSE/PROCEDURE END TIME: 4:55 PM SURGEON(S)/PROCEDURALIST(S ) AND SPRING SALVAGE WORKER(S): Surgeon(s) and Role: * Milli Juárez - Primary * Evelio Harrison - Assisting No Additional Staff SURGERY/PROCEDURE(S): Right retrosigmoid repair of pseudomeningocele with autograft from same incision Cranioplasty <5cm with mesh repair ANESTHESIA: General Operative Indications: This is a 74 y/o female s/p a redo MVD on the right side who developed a pseudomeningocele at the craniotomy site 2 months after surgery. Surgical revision was discussed with the patient who wished to proceed after more conservative measures were attempted and did not resolve the issue. SURGERY/PROCEDURE DETAILS: Prior to induction of anesthesia, an audible huddle was performed confirming site of operation, planned operation, need for antibiotics, and other anticipated needs with the patient, surgical, nursing, and anesthesia teams. All agreed to proceed. Patient was positioned. All pressure points were verified to be padded appropriately. The patient was placed in a Pedersen automatic head sawyer and fixed to the [place] with attention to maintaining venous drainage. The surgical region was prepped and draped in the usual sterile fashion. Prior to starting the operation the surgical team paused and performed an audible timeout. The surgical, nursing, and anesthesia personnel agreed with the procedure to be performed. Incision was made using #10 blade scalpel along the prior incision on the right side. There was fluid under mild pressure that immediately egressed out of the wound that was clear/yellow in color. The scalp flap was reflected away from the skull and brain. The bony edges were identified circumferentially along the bony defect. The prior mesh was removed and the dural opening explored which demonstrated a small 3mm x3mm defect. A pericranial/muscle graft was dissected laterally within the incision and sewn with 4-0 neurolon to the dural defect to patch the defect. A valsalva maneuver demonstrated no active leakage from the dura. The wound was copiously irrigated. A duragen patch was cut to the size of the wound and a dural sealant Adherant was used to cover the duragen and bone edges. An MRI compatible 7alx4ot titanium mesh plate was used to cover the craniectomy defect and affixed with MRI compatible screws. Prior to closure, hemostasis was achieved. The wound was copiously irrigated. All retracting devices were removed from the wound. All temporary implants were removed from the wound. Prior to closure, surgical count was correct and verified x 1. The wound was closed in the usual fashion. Galeal and cutaneous sutures were placed. The wound was then dressed. Operative Findings: Autograft from same incision used to repair dural leak. Duragen and dural sealant used to cover dura. Titanium mesh plate placed. PRE-OP/PRE-PROCEDURE DIAGNOSIS: post-surgical pseudomeningocele POST-OP/POST-PROCEDURE DIAGNOSIS: post-surgical pseudomeningocele ESTIMATED BLOOD LOSS: 10 mls SPECIMENS: None IMPLANTABLE DEVICES: Implant Name Type Inv. Item Serial No. It [employer] Recruiter Lot No. LRB No. Used SCREW BONE UNIVERSAL NEURO 3 4MM 1.5MM SELF DRILL AXIAL STABILITY LATEX - [id number] Screw SCREW BONE UNIVERSAL NEURO 3 4MM 1.5MM SELF DRILL AXIAL STABILITY LATEX STRY/HOWM CRANIOMAXILLOFACIAL Right 1 SCREW BONE UNIVERSAL NEURO 3 4MM 1.5MM SELF DRILL AXIAL STABILITY LATEX - [id number] Screw SCREW BONE UNIVERSAL NEURO 3 4MM 1.5MM SELF DRILL AXIAL STABILITY LATEX STRY/HOWM CRANIOMAXILLOFACIAL Right 8 Plate Sm Translabyrinthine Implant KG Right 1 GRAFT DURAGEN PLUS BOVINE COLLAGEN MATRIX 2X2IN SOFT TISSUE PATCH - [id number] Framework - Tissue GRAFT DURAGEN PLUS BOVINE COLLAGEN MATRIX 2X2IN SOFT TISSUE PATCH [employer] SCI NEURO [id number] Right 1 DRAINS: SA drain left in place COMPLICATIONS: None PARTICIPATION IN SURGERY/PROCEDURE: I/primary surgeon/proceduralist performed the procedure with Dr. Harrison's assistance for the opening, dural repair and grafting, cranioplasty and closure. No qualified resident/fellow was available. SIGNATURE: Milli Juárez MD PATIENT NAME: Kate Oreilly DATE: August 04, 2019 TIME: 1:34 PM PAGER/CONTACT #: Eliana [facility] PROGRESSon 08-03-2019 PROGRESS HNO ID: [id number] Author: Carmelo Hardy Service: Neurology ICU Author Type: Physician Type: Progress Notes Filed: 08/04/2019 12:53 PM Note Text: SERVICE DATE: 08/03/2019 SERVICE TIME: 1:25 PM NEURO ICU PROGRESS NOTE DATE OF ADMISSION: 07/26/2019 Subjective Events Since Last Note: Planning for wound revision with Neurosurgery service today. Objective BP 109/87 Pulse (!) 55 Temp 36.4 ?C (97.5 ?F) Resp 14 Ht 170.2 cm (5' 7) Wt 85.7 kg (188 lb 15 oz) LMP (LMP Unknown) SpO2 98% BMI 29.59 kg/m? Weight change: Neuro: ?GCS: Eyes:?4. Spontaneous Verbal:?5: Oriented Motor:?6: Obeys Motor commands Total:?15?CRANIAL NERVES: Normal mood and affect. CNII-XII grossly intact. ?MOTOR STRENGTH: Upper and lower extremity 5/5 bilaterally SENSATION:?Intact?light touch COORDINATION:?Finger-to- nose-finger intact bilaterally ? CV:?RRR Pulm:?Lungs CTAB, Mechanical Ventilation:?No. Supplemental Oxygen:?No GI/:?Abdomen soft, nontender. Skin/Extremities:?Edema- No??Peripheral pulses- Present all extremities??Wounds/Drsgs- No??Breakdown- No?? Diagnostic tests reviewed for today's visit: Most recent labs and imaging results. Lines, Drains, and Airways Line Peripheral 07/26/19 1337 Right Forearm 20 Gauge 7 days Peripheral 07/29/19 0600 Short Left Hand 22 Gauge 5 days Drain Drain/Tube 07/28/19 2130 Lumbar Midline Back 5 days PERSONAL INVOLVEMENT IN CARE: Reviewing initiation, responses and adjustments to therapies, coordination of care, and updating family with Staff Physician, Dr. Hardy. Assessment AND Plan Active Hospital Problems as of 08/03/2019 Noted - Resolved Hospital Trigeminal neuralgia 05/18/2005 - Present Current Assessment AND Plan Pain control Pseudomeningocele 07/27/2019 - Present Current Assessment AND Plan S/p lumbar drain Drainage at 3 cc/hr per neurosurg Wound revision scheduled with neurosurg 08/03 Medication and Non-Pharmacologic VTE Prophylaxis/Anticoagulants 07/26/191714 vte pharmacologic prophylaxis contraindicated ([place], [place]) 07/26/191714 pneumatic compression stockings ([place]) 07/26/191714 activity - mobilize patient ([place]) VTE Prophylaxis: VTE prophylaxis appropriate Plan of care discussed with: Provider, RN, Patient SIGNATURE: Jerrell Kuhn PA-C PATIENT NAME: Kate Oreilly DATE: August 03, 2019 TIME: 1:25 PM PAGER/CONTACT #: [phone] Attending Note I personally saw and examined the patient. I reviewed the BENJI's note. I agree with the BENJI's assessment and plan unless otherwise noted. Signature: Carmelo Hardy MD Date: 08/03/2019 Time: 2:53 PM Normal [facility] Phosphorus Bloodon 0 Phosphate [Mass/Vol] 3.9 mg/dL Normal 2.5-4.9 [facility] Comment on above: Performed By: #### T &S #### [place] [address] Basic Panelon 08-02-2019 Creatinine [Mass/Vol] 0.72 mg/dL Normal 0.51-0.95 [facility] Comment on above: Result Comment: Use of this assay is not recommended for patients undergoing treatment with phenindione, due to the potential for falsely depressed results. Performed By: #### T &S #### [place] [address] Anion gap [Moles/Vol] 12 mmol/L Normal 8-16 [facility] Comment on above: Performed By: #### T &S #### [facility] [address] [place], [place] [address] CO2 [Moles/Vol] 22 mmol/L Normal 21-32 [facility] Comment on above: Performed By: #### T &S #### [facility] [address] [place], [place] [address] Glucose [Mass/Vol] 103 mg/dL High 70-99 [facility] Comment on above: Performed By: #### T &S #### [facility] [address] [place], [place] [address] Calcium [Mass/Vol] 8.6 mg/dL Normal 8.5-10.1 [facility] Comment on above: Performed By: #### T &S #### [facility] [address] [place] [address] Urea nitrogen [Mass/Vol] 15 mg/dL Normal 7-18 [facility] Comment on above: Performed By: #### T &S #### [facility] [address] [place] [address] Chloride [Moles/Vol] 105 mmol/L Normal 98-107 [facility] Comment on above: Performed By: #### T &S #### [facility] [address] [place], [place] [address] Potassium [Moles/Vol] 3.8 mmol/L Normal 3.5-5.1 [facility] Comment on above: Performed By: #### T &S #### [place] [address] Sodium [Moles/Vol] 135 mmol/L Low 136-145 [facility] Comment on above: Performed By: #### T &S #### [place] [address] CASE MANAGEMon 08-02-2019 CASE MANAGEM HNO ID: [id number] Author: Kimberly (Rn) CORTEZ Barroso Service: Care Management Author Type: Registered Nurse Type: Care Mgt Progress Note Filed: 08/02/2019 1:39 PM Note Text: CARE MANAGEMENT PROGRESS NOTE SERVICE DATE: August 02, 2019 SERVICE TIME: 1:38 PM LOS: 5 days . Patient remains in NSICU. Talked with staff air defense officer, Zofia. OR is planned for 08/03 for revision of lumbar drain. Recommend PT/OT evals once medically ready. CM to follow for transitional needs. ? SIGNATURE: Kimberly Barroso RN PATIENT NAME: Kate Oreilly DATE: August 02, 2019 TIME: 1:37 PM PAGER/CONTACT #: [phone] Normal [facility] Hemogram/Diffon 08-02-2019 Abs Immature Grans 0.01 thou/cmm Normal 0.00-0.05 [facility] Comment on above: Performed By: #### T &S #### [place] [address] Abs Neut (ANC) 3.43 thou/cmm Normal 1.56-6.13 [facility] Comment on above: Performed By: #### T &S #### [place] [address] Abs. Baso 0.06 thou/cmm Normal 0.01-0.08 [facility] Comment on above: Performed By: #### T &S #### [place] [address] Abs. [place] 0.45 thou/cmm Normal 0.27-0.70 [facility] Comment on above: Performed By: #### T &S #### [address] [address] Basophils/100 WBC (Bld) 0.8 % Normal [facility] Comment on above: Performed By: #### T &S #### [address] [address] Eosinophils (Bld) [#/Vol] 0.10 thou/cmm Normal 0.00-0.31 [facility] Comment on above: Performed By: #### T &S #### [place] [address] Eosinophils/100 WBC (Bld) 1.4 % Normal [facility] Comment on above: Performed By: #### T &S #### [facility] [address] [place], [place] [address] Erythrocyte distribution width (RBC) [Ratio] 13.0 % Normal 11.7-14.4 [facility] Comment on above: Performed By: #### T &S #### [facility] [address] [place], [place] [address] Hematocrit (Bld) [Volume fraction] 44.5 % Normal 34.1-44.9 [facility] Comment on above: Performed By: #### T &S #### [facility] [address] [place], [place] [address] Hemoglobin (Bld) [Mass/Vol] 14.5 g/dL Normal 11.2-15.7 [facility] Comment on above: Performed By: #### T &S #### [facility] [address] [place] [address] Immature Grans 0.10 % Normal [facility] Comment on above: Performed By: #### T &S #### [facility] [address] [place] [address] Lymphocytes (Bld) [#/Vol] 3.31 thou/cmm Normal 1.18-3.74 [facility] Comment on above: Performed By: #### T &S #### [facility] [address] [place] [address] Lymphocytes/100 WBC (Bld) 45.0 % Normal [facility] Comment on above: Performed By: #### T &S #### [facility] [address] [place], [place] [address] MCH (RBC) [Entitic mass] 29.4 pg Normal 25.6-32.2 [facility] Comment on above: Performed By: #### T &S #### [facility] [address] [place], [place] [address] MCHC (RBC) [Mass/Vol] 32.6 % Normal 31.6-34.8 [facility] Comment on above: Performed By: #### T &S #### [place] [address] MCV (RBC) [Entitic vol] 90.3 fL Normal 79.4-94.8 [facility] Comment on above: Performed By: #### T &S #### [facility] [address] [place], [place] [address] Monocytes/100 WBC (Bld) 6.1 % Normal [facility] Comment on above: Performed By: #### T &S #### [facility] [address] [place], [place] [address] Platelet mean volume (Bld) [Entitic vol] 11.2 fL Normal 9.4-12.3 [facility] Comment on above: Performed By: #### T &S #### [facility] [address] [place], [place] [address] Platelets (Bld) [#/Vol] 233 thou/cmm Normal 182-369 [facility] Comment on above: Performed By: #### T &S #### [facility] [address] [place] [address] RBC (Bld) [#/Vol] 4.93 mil/cmm Normal 3.93-5.22 [facility] Comment on above: Performed By: #### T &S #### [facility] [address] [place], [place] [address] RDW SD 43.1 fl Normal 36.4-46.3 [facility] Comment on above: Performed By: #### T &S #### [facility] [address] [place], [place] [address] Seg Neutrophil 46.6 % Normal [facility] Comment on above: Performed By: #### T &S #### [facility] [address] [place], [place] [address] WBC (Bld) [#/Vol] 7.35 thou/cmm Normal 3.98-10.04 [facility] Comment on above: Performed By: #### T &S #### [facility] [address] [place] [address] Magnesium Bloodon 08-02-2019 Magnesium [Mass/Vol] 2.0 mg/dL Normal 1.6-2.6 [facility] Comment on above: Performed By: #### T &S #### [facility] [address] [place] [id number] PROGRESSon 08-02-2019 PROGRESS HNO ID: [id number] Author: Carmelo Hardy Service: Neurology ICU Author Type: Physician Type: Progress Notes Filed: 08/03/2019 9:53 AM Note Text: SERVICE DATE: 08/02/2019 SERVICE TIME: 2:24 PM NEURO ICU PROGRESS NOTE DATE OF ADMISSION: 07/26/2019 Subjective Hospital Course: 74 year old female with?a?history of?trigeminal neuralgia s/p microvascular decompression of R trigeminal nerve 04/2019, and pseudomeningocele. Post-operatively after nerve decompression, she started noticing swelling behind her right?ear. She started to develop difficulty swallowing. In ED, CT head and neck demonstrating [id number] fluid collection in R occipital region overlying surgical mesh, likely pseudomeningocele. She was admitted and neurosurgery monitoring on the RNF. Given continued expansion and progression of fluid buildup, lumbar drain was placed.?Patient transferred to NSICU for lumbar drain placement and continued neuro monitoring.? Events Since Last Note: No acute events overnight. Patient's fluid collection behind right ear noted to be slightly increased from prior. Objective BP 123/63 Pulse 66 Temp 36.3 ?C (97.3 ?F) (Temporal) Resp 11 Ht 170.2 cm (5' 7) Wt 85.7 kg (188 lb 15 oz) LMP (LMP Unknown) SpO2 96% BMI 29.59 kg/m? Weight change: Neuro: GCS: Eyes: 4. Spontaneous Verbal: 5: Oriented Motor: 6: Obeys Motor commands Total: 15 CRANIAL NERVES: Normal mood and affect. CNII-XII grossly intact. MOTOR STRENGTH: Upper and lower extremity 5/5 bilaterally SENSATION: Intact light touch COORDINATION: Finger-to- nose-finger intact bilaterally CV: RRR Pulm: Lungs CTAB, Mechanical Ventilation: No. Supplemental Oxygen: No GI/: Abdomen soft, nontender. Skin/Extremities: Edema- No Peripheral pulses- Present all extremities Wounds/Drsgs- No Breakdown- No Diagnostic tests reviewed for today's visit: Most recent labs Lines, Drains, and Airways Line Peripheral 07/26/19 1337 Right Forearm 20 Gauge 6 days Peripheral 07/29/19 0600 Short Left Hand 22 Gauge 4 days Drain Drain/Tube 07/28/19 2130 Lumbar Midline Back 4 days ICU Checklist Last Documented/Reviewed time: 07/30/2019 12:57 PM ICU Delirium Status: CAM Positive - new, will place orders Restraint Status: None ICU Mobility-Pt Has Been Out of Bed: Yes Line Status: None Ventilator: None Gregorio Status: None GI/Stress Ulcer Prophylaxis: None - not required Nutrition is at Goal: Yes VTE Prophylaxis: Chemoprophylaxis: No chemoprophylaxis No Chemoprophylaxis Reason: Bleeding risk Pressure Injury Status: None ICU Plan Reviewed with RN: Yes ICU Family Update in Last 24 Hours: Patient updated ICU Disposition- Is Patient Clinically Ready to Transfer to [facility] or SDU?: No Discharge Planning: Home PERSONAL INVOLVEMENT IN CARE: Reviewing initiation, responses and adjustments to therapies, coordination of care, and updating family with Staff Physician, Dr. Hardy. Assessment AND Plan Active Hospital Problems as of 08/02/2019 Noted - Resolved Hospital Trigeminal neuralgia 05/18/2005 - Present Current Assessment AND Plan Pain control Pseudomeningocele 07/27/2019 - Present Current Assessment AND Plan S/p lumbar drain Drainage at 3 cc/hr per neurosurg Wound revision scheduled with neurosurg tomorrow Medication and Non-Pharmacologic VTE Prophylaxis/Anticoagulants 07/26/195 vte pharmacologic prophylaxis contraindicated (tx,ar) 07/26/191714 pneumatic compression stockings (tx,ar) 07/26/191714 activity - mobilize patient ([place], [place]) VTE Prophylaxis: Contraindicated OR procedure Plan of care discussed with: Provider, RN, Patient SIGNATURE: Leta Mcrae DO PATIENT NAME: Kate Oreilly DATE: August 02, 2019 TIME: 2:24 PM PAGER/CONTACT #: [phone] NSICU STAFF ADDENDUM Carmelo Hardy MD Pt seen and examined independently. Labs/vitals/imaging reviewed personally. Agree with above, reflecting my direct input. Neuro unchanged. Lumbar drain functioning appropriately. Await surgical revision tomorrow. NPO p MN. C/w supportive care. PERSONAL INVOLVEMENT IN CARE: ? ?Patient/Family Updated: Patient and/or family were updated regarding the goals of care,?medical plan for the day, library consultant recommendations, medical disposition and current medical condition/prognosis as and if clinically indicated. All questions and concerns were answered and addressed at this juncture. I agree with the resident MD note as above, except as otherwise indicated; my additional comments, if necessary, are in bold. ? This patient has a high probability of sudden, clinically significant deterioration, which requires the highest level of physician preparedness to intervene urgently. I managed/supervised life or organ supporting interventions that required frequent physician assessment. I devoted my full attention to the direct care of this patient for the amount of time indicated below. Time I spent with family or surrogate(s) is included only if the patient was incapable of providing the necessary information or participating in medical decision making. Time devoted to teaching and to any procedures I billed separately is not included. ? Critical Care Documentation: The patient has the following organ/system impairment(s): As above Time spent providing critical care services: 30 minutes. ? SIGNATURE: Carmelo Hardy MD PATIENT NAME: Kate Oreilly DATE: 08/02/19 TIME: 3:51 PM PAGER/CONTACT #: [phone] [facility] PROGRESS HNO ID: [id number] Author: Emily Tenorio (Lora) LORA Martinez Service: Neurosurgery Author Type: Physician Exercise Equipment Repair Technician Type: Progress Notes Filed: 08/02/2019 8:56 AM Note Text: Neurosurgery Progress Note SERVICE DATE: 08/02/2019 SUBJECTIVE: Sitting up eating - states h/a unchanged but slept better last night. Mild nausea currently. OBJECTIVE: Vitals: Temp (24hrs), Av.3 ?C (97.4 ?F), Min:36.1 ?C (97 ?F), Max:36.6 ?C (97.9 ?F) BP 123/63 Pulse 66 Temp 36.3 ?C (97.3 ?F) (Temporal) Resp 11 Ht 170.2 cm (5' 7) Wt 85.7 kg (188 lb 15 oz) LMP (LMP Unknown) SpO2 96% BMI 29.59 kg/m? O2 Therapy: Room Air IANDO: Date 08/01/19 07 - 08/02/19 0659 08/02/19 07 - 08/03/19 0659 Shift 0687-7386 1811-6612 8273-9303 24 Hour Total 6538-8165 4071-3064 6291-8452 24 Hour Total INTAKE PO 360 360 PO 360 360 Shift Total 360 360 OUTPUT Urine Urine Not Saved. 2 x 2 x 2 x 6 x Tubes 30 24 24 78 6 6 Drain/Tube Output (Drain/Tube 07/28/19 2130 Lumbar Midline Back) 30 24 24 78 6 6 # of BMs Number of BMs 2 x 2 x 4 x 1 x 1 x Shift Total 30 24 24 78 6 6 Weight (kg) 85.7 85.7 85.7 85.7 85.7 85.7 85.7 85.7 MEDICATIONS Current Facility-Administered Medications Medication Dose Route Frequency - metoclopramide HCl 10 mg injection (REGLAN) 10 mg INTRAVENOUS q 6 H PRN - potassium chloride ER 20-40 mEq tab(s) (K-DUR, KLOR-CON) 20-40 mEq ORAL/FEEDING TUBE PRN Or - potassium chloride iv piggyback 20 mEq/100 mL 20 mEq INTRAVENOUS PRN - magnesium sulfate in water 2 g in sterile water 50 ml 2 g INTRAVENOUS PRN - sodium phosphate 45 mmol in NaCl 0.9% 250 mL 45 mmol INTRAVENOUS PRN - calcium gluconate 4 g in NaCl 0.9% 250 mL 4 g INTRAVENOUS PRN - polyethylene glycol 3350 17 g packet (MIRALAX, GLYCOLAX) 17 g ORAL/FEEDING TUBE DAILY - acetaminophen 650 mg tab(s) (TYLENOL) 650 mg ORAL q 4 H PRN - fentaNYL 50 mcg/mL 25-50 mcg injection (SUBLIMAZE) 25-50 mcg INTRAVENOUS q 1 H PRN - topiramate 50 mg tab(s) (TOPAMAX) 50 mg ORAL DAILY (6 AM) - topiramate 75 mg tab(s) (TOPAMAX) 75 mg ORAL DAILY AT 6 PM - levothyroxine 75 mcg tab(s) (SYNTHROID) 75 mcg ORAL DAILY - atenolol 50 mg tab(s) (TENORMIN) 50 mg ORAL DAILY - docusate sodium 100 mg cap(s) (COLACE) 100 mg ORAL BID Labs: Recent Labs 08/02/19 0324 08/01/19 0520 NA 135* 138 K 3.8 3.6 CHLOR 105 110* CO2 22 22 BUN 15 13 CREAT 0.72 0.73 GLUC 103* 98 ANION 12 10 CA 8.6 7.9* MG 2.0 2.1 P 3.9 3.0 WBC 7.35 6.36 HB 14.5 14.3 HCT 44.5 44.2 PLT 233 208 Exam: GENERAL: No distress, Alert NEURO: orientedx3; speech clear and fluent; msp intact HEENT: right post fluid collection less than in previous days LUNGS: Unlabored breathing NECK/BACK: Incision C/D/I, drain: lumbar drain 3cc/hr draining - clear ASSESSMENT AND PLAN: Active Hospital Problems Diagnosis Date Noted - Pseudomeningocele 07/27/2019 - Trigeminal neuralgia 05/18/2005 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 - s/p crani for meningioma 04/2019 - lumbar drain placement - neuro stable - pain control - continue current drainage - to OR tomorrow for revision - NPO after midnight SIGNATURE: LORA Garrido PATIENT NAME: Kate Oreilly DATE: August 02, 2019 TIME: 8:53 AM Pager: [phone] Normal [facility] Phosphorus Bloodon 0 Phosphate [Mass/Vol] 3.9 mg/dL Normal 2.5-4.9 [facility] Comment on above: Performed By: #### T &S #### [place] [address] Basic Panelon 08-01-2019 Creatinine [Mass/Vol] 0.73 mg/dL Normal 0.51-0.95 [facility] Comment on above: Result Comment: Use of this assay is not recommended for patients undergoing treatment with phenindione, due to the potential for falsely depressed results. Performed By: #### G FR #### [place] [address] Anion gap [Moles/Vol] 10 mmol/L Normal 8-16 [facility] Comment on above: Performed By: #### G FR #### [facility] [address] [place], [place] [address] Calcium [Mass/Vol] 7.9 mg/dL Low 8.5-10.1 [facility] Comment on above: Performed By: #### G FR #### [facility] [address] [place], [place] [address] CO2 [Moles/Vol] 22 mmol/L Normal 21-32 [facility] Comment on above: Performed By: #### G FR #### [facility] [address] [place], [place] [address] Glucose [Mass/Vol] 98 mg/dL Normal 70-99 [facility] Comment on above: Performed By: #### G FR #### [facility] [address] [place], [place] [address] Urea nitrogen [Mass/Vol] 13 mg/dL Normal 7-18 [facility] Comment on above: Performed By: #### G FR #### [facility] [address] [place], [place] [address] Chloride [Moles/Vol] 110 mmol/L High 98-107 [facility] Comment on above: Performed By: #### G FR #### [facility] [address] [place], [place] [address] Potassium [Moles/Vol] 3.6 mmol/L Normal 3.5-5.1 [facility] Comment on above: Performed By: #### G FR #### [facility] [address] [place], [place] [address] Sodium [Moles/Vol] 138 mmol/L Normal 136-145 [facility] Comment on above: Performed By: #### G FR #### [facility] [address] [place], [place] [address] Hemogram/Diffon 08-01-2019 Abs Immature Grans 0.02 thou/cmm Normal 0.00-0.05 [facility] Comment on above: Performed By: #### G FR #### [facility] [address] [place], [place] [address] Abs Neut (ANC) 3.23 thou/cmm Normal 1.56-6.13 [facility] Comment on above: Performed By: #### G FR #### [facility] [address] [place] [address] Abs. Baso 0.05 thou/cmm Normal 0.01-0.08 [facility] Comment on above: Performed By: #### G FR #### [facility] [address] [place] [address] Abs. [place] 0.37 thou/cmm Normal 0.27-0.70 [facility] Comment on above: Performed By: #### G FR #### [place] [address] Basophils/100 WBC (Bld) 0.8 % Normal [facility] Comment on above: Performed By: #### G FR #### [place] [address] Eosinophils (Bld) [#/Vol] 0.10 thou/cmm Normal 0.00-0.31 [facility] Comment on above: Performed By: #### G FR #### [place] [address] Eosinophils/100 WBC (Bld) 1.6 % Normal [facility] Comment on above: Performed By: #### G FR #### [place] [address] Erythrocyte distribution width (RBC) [Ratio] 13.2 % Normal 11.7-14.4 [facility] Comment on above: Performed By: #### G FR #### [facility] [address] [place] [address] Hematocrit (Bld) [Volume fraction] 44.2 % Normal 34.1-44.9 [facility] Comment on above: Performed By: #### G FR #### [facility] [address] [place] [address] Hemoglobin (Bld) [Mass/Vol] 14.3 g/dL Normal 11.2-15.7 [facility] Comment on above: Performed By: #### G FR #### [address] [place], [place] [address] Immature Grans 0.30 % Normal [facility] Comment on above: Performed By: #### G FR #### [facility] [address] [place], [place] [address] Lymphocytes (Bld) [#/Vol] 2.59 thou/cmm Normal 1.18-3.74 [facility] Comment on above: Performed By: #### G FR #### [facility] [address] [place], [place] [address] Lymphocytes/100 WBC (Bld) 40.7 % Normal [facility] Comment on above: Performed By: #### G FR #### [facility] [address] [place], [place] [address] MCH (RBC) [Entitic mass] 29.9 pg Normal 25.6-32.2 [facility] Comment on above: Performed By: #### G FR #### [facility] [address] [place] [address] MCHC (RBC) [Mass/Vol] 32.4 % Normal 31.6-34.8 [facility] Comment on above: Performed By: #### G FR #### [facility] [address] [place], [place] [address] MCV (RBC) [Entitic vol] 92.5 fL Normal 79.4-94.8 [facility] Comment on above: Performed By: #### G FR #### [facility] [address] [place], [place] [address] Monocytes/100 WBC (Bld) 5.8 % Normal [facility] Comment on above: Performed By: #### G FR #### [facility] [address] [place], [place] [address] Platelet mean volume (Bld) [Entitic vol] 11.1 fL Normal 9.4-12.3 [facility] Comment on above: Performed By: #### G FR #### [facility] [address] [place], [place] [address] Platelets (Bld) [#/Vol] 208 thou/cmm Normal 182-369 [facility] Comment on above: Performed By: #### G FR #### [facility] [address] [place] [address] RBC (Bld) [#/Vol] 4.78 mil/cmm Normal 3.93-5.22 [facility] Comment on above: Performed By: #### G FR #### [facility] [address] [place] [address] RDW SD 45.5 fl Normal 36.4-46.3 [facility] Comment on above: Performed By: #### G FR #### [facility] [address] [place] [address] Seg Neutrophil 50.8 % Normal [facility] Comment on above: Performed By: #### G FR #### [facility] [address] [place] [address] WBC (Bld) [#/Vol] 6.36 thou/cmm Normal 3.98-10.04 [facility] Comment on above: Performed By: #### G FR #### [facility] [address] [place] [address] Magnesium Bloodon 08-01-2019 Magnesium [Mass/Vol] 2.1 mg/dL Normal 1.6-2.6 [facility] Comment on above: Performed By: #### G FR #### [facility] [address] [place] [address] NURSING PROGon 08-01-2019 NURSING PROG HNO ID: [id number] Author: Lynette MartínezRn) CORTEZ Pratt Service: Nursing Author Type: Registered Nurse Type: Nursing Progress Note Filed: 08/01/2019 6:31 PM Note Text: LORA Duran notified that pt felt that fluid collection behind ear has gotten slightly larger since decreasing amount of CSF drainage via lumbar drain to 3 cc/hr. States to continue to monitor for now, but not intervention at this time. Normal [facility] NUTRITIONon 08-01-2019 NUTRITION HNO ID: [id number] Author: Laverne Duncan Service: Nutrition Therapy Author Type: Registered Dietitian Type: Nutrition Filed: 08/01/2019 11:54 AM Note Text: NUTRITION THERAPY INITIAL ASSESSMENT SERVICE DATE: 08/01/2019 SERVICE TIME: 8:30 AM Nutrition Assessment: Recommended Malnutrition Diagnosis: No Malnutrition Identified Nutrition Diagnosis: Problem: Suboptimal oral intake Related to: Inability to consume sufficient nutrients As evidenced by: Medical condition;Patient/family self-report;Intake records Estimated kilocalorie needs: 8044-1367 Calorie Calculation Method: 25-30 kcals/kg Estimated protein needs (grams): 73-98 Grams protein determined by: 1.2-1.6 g/kg Care Plan: Continue current diet Supplements: Ensure Clear Monitor and Evaluation: Meet greater than 75% of estimated needs;Monitor fluid/electrolyte balance;Monitor labs, I/Os, vital signs, weight Reason for Assessment: LOS HPI: 74 year old female ith a history of trigeminal neuralgia s/p microvascular decompression of R trigeminal nerve 04/2019 and pseudomeningocele. Note difficulty swallowing and swelling post-op. Admitted for lumbar drain. PAST MEDICAL HISTORY Diagnosis Date - Diverticulosis of colon (without mention of hemorrhage) - Family history of malignant neoplasm of gastrointestinal tract - Head injury 09/30 trip fall - HTN (hypertension) - Hypothyroidism - Internal hemorrhoids without mention of complication - SREEKANTH (obstructive sleep apnea) - Other and unspecified hyperlipidemia - Pneumonia 07/2011 - Snoring - Trigeminal neuralgia Intake History: Nutrition Intake Prior to Admission: Greater than 75% estimated energy needs greater than or equal to 1 month(still ate well even with pain and difficulty swallowing) Current Intake: Less than 75% estimated energy needs over: the past 4 days with worsening headache and inability to sit up for very long. Patient reports at beginning of admission she was eating everything on her trays. She is selective with her foods d/t needing softer/easy to eat foods. Dislikes milk and supplements ( takes several supps at home). Agreeable to try ruiz ensure clear. Current Diet: DIET REGULAR Anthropometrics: Height: 170.2 cm (5' 7) Weight: 85.7 kg (188 lb 15 oz) Dosing Weight: 61 kg (134 lb 7.7 oz) Usual Weight: 93 kg (205 lb 0.4 oz) Body mass index is 29.59 kg/m?. Overweight Weight change percentage over time: insignficant weight change Last Wt 07/26/19 : 85.7 kg (188 lb 15 oz) - bed. ?accuracy - pt denied weight being accurate. Attempted bed weight during visit and reported 26 kg. 07/22/19 : 94.6 kg - doctor's office per patient report. 06/23/19 : 93 kg (205 lb) 06/22/19 : 94.6 kg (208 lb 9.6 oz) 05/26/19 : 93.9 kg (207 lb) 05/12/19 : 95.4 kg (210 lb 5.1 oz) 05/05/19 : 93.9 kg (207 lb) 05/02/19 : 94.3 kg (208 lb) 04/17/19 : 93.4 kg (206 lb) 03/23/19 : 94.3 kg (207 lb 12.8 oz) 01/23/19 : 92.1 kg (203 lb 0.7 oz) 12/26/2018 92.1 kg (203 lb) 11/10/2018 93 kg (205 lb) 10/13/2018 94.4 kg (208 lb 3.2 oz) 09/08/2018 92.7 kg (204 lb 6.4 oz) 08/16/2017 93.4 kg (206 lb) Physical Exam: Subcutaneous fat loss: No fat loss Muscle loss: No muscle loss Potential micronutrient deficiency: No deficiency identified Edema/Ascites: (neck edema) GI Symptoms: Nausea Functional Status: Not related to malnutrition status Potential Signs of Inflammation: Chronic condition;Imaging studies SIGNATURE: Laverne Duncan RD, LD PATIENT NAME: Kate Oreilly DATE: August 01, 2019 TIME: 8:30 AM PAGER: [phone] [facility] PROGRESSon 08-01-2019 PROGRESS HNO ID: [id number] Author: Carmelo Hardy Service: Neurology ICU Author Type: Physician Type: Progress Notes Filed: 08/01/2019 3:41 PM Note Text: SERVICE DATE: 08/01/2019 SERVICE TIME: 2:47 PM NEURO ICU PROGRESS NOTE DATE OF ADMISSION: 07/26/2019 Subjective Hospital Course: 74 year old female with a history of trigeminal neuralgia s/p microvascular decompression of R trigeminal nerve 04/2019, and pseudomeningocele. Post-operatively after nerve decompression, she started noticing swelling behind her right ear. She started to develop difficulty swallowing. In ED, CT head and neck demonstrating [id number] fluid collection in R occipital region overlying surgical mesh, likely pseudomeningocele. She was admitted and neurosurgery monitoring on the RNF. Given continued expansion and progression of fluid buildup, lumbar drain was placed. Patient transferred to NSICU for lumbar drain placement and continued neuro monitoring.? No notes on file Events Since Last Note: No acute events overnight. Pseudomeningocele does not appear to be completely draining. Neurosurg decreased patient's lumbar drain to 5 cc/hr . Patient complains of ongoing headache this morning, worsened by sitting up. Objective BP 126/64 Pulse 64 Temp 36.3 ?C (97.3 ?F) Resp 14 Ht 170.2 cm (5' 7) Wt 85.7 kg (188 lb 15 oz) LMP (LMP Unknown) SpO2 97% BMI 29.59 kg/m? Weight change: Neuro: GCS: Eyes: 4. Spontaneous Verbal: 5: Oriented Motor: 6: Obeys Motor commands Total: 15 CRANIAL NERVES: Normal mood and affect. CNII-XII grossly intact. MOTOR STRENGTH: Upper and lower extremity 5/5 bilaterally SENSATION: Intact light touch COORDINATION: Finger-to- nose-finger intact bilaterally CV: RRR Pulm: Lungs CTAB, Mechanical Ventilation: No. Supplemental Oxygen: No GI/: Abdomen soft, nontender. Skin/Extremities: Edema- No Peripheral pulses- Present all extremities Wounds/Drsgs- No Breakdown- No Diagnostic tests reviewed for today's visit: Most recent labs and imaging results. Lines, Drains, and Airways Line Peripheral 07/26/19 1337 Right Forearm 20 Gauge 5 days Peripheral 07/29/19 0600 Short Left Hand 22 Gauge 3 days Drain Drain/Tube 07/28/19 2130 Lumbar Midline Back 3 days ICU Checklist Last Documented/Reviewed time: 07/30/2019 12:57 PM ICU Delirium Status: CAM Positive - new, will place orders Restraint Status: None ICU Mobility-Pt Has Been Out of Bed: Yes Line Status: None Ventilator: None Gregorio Status: None GI/Stress Ulcer Prophylaxis: None - not required Nutrition is at Goal: Yes VTE Prophylaxis: Chemoprophylaxis: No chemoprophylaxis No Chemoprophylaxis Reason: Bleeding risk Pressure Injury Status: None ICU Plan Reviewed with RN: Yes ICU Family Update in Last 24 Hours: Patient updated ICU Disposition- Is Patient Clinically Ready to Transfer to [facility] or SDU?: No Discharge Planning: Home PERSONAL INVOLVEMENT IN CARE: Reviewing initiation, responses and adjustments to therapies, coordination of care, and updating family with Staff Physician, Dr. Hardy. Assessment AND Plan Active Hospital Problems as of 08/01/2019 Noted - Resolved Hospital Trigeminal neuralgia 05/18/2005 - Present Current Assessment AND Plan Pain control Pseudomeningocele 07/27/2019 - Present Current Assessment AND Plan S/p lumbar drain Drainage decreased to 3 cc/hr per neurosurg Wound revision scheduled with neurosurg tomorrow or Medication and Non-Pharmacologic VTE Prophylaxis/Anticoagulants 07/26/191714 vte pharmacologic prophylaxis contraindicated ([place], [place]) 07/26/191714 pneumatic compression stockings ([place], [place]) 07/26/191714 activity - mobilize patient ([place], [place]) VTE Prophylaxis: Contraindicated surgery likely tomorrow Plan of care discussed with: Provider, RN, Patient SIGNATURE: Leta Mcrae DO PATIENT NAME: Kate Oreilly DATE: August 01, 2019 TIME: 2:47 PM PAGER/CONTACT #: [phone] NSICU STAFF ADDENDUM Carmelo Hardy MD Pt seen and examined independently. Labs/vitals/imaging reviewed personally. Agree with above, reflecting my direct input. No changes neurologically. Lumbar drainage down to 3ml per hr. Reglan helping with the nausea but pain remains an obstacle. Per Nsgy, pt will require surgical revision of the pseudomeningocele in the near future. C/w supportive care and lumbar drainage. PERSONAL INVOLVEMENT IN CARE: ? ?Patient/Family Updated: Patient and/or family were updated regarding the goals of care,?medical plan for the day, library consultant recommendations, medical disposition and current medical condition/prognosis as and if clinically indicated. All questions and concerns were answered and addressed at this juncture. I agree with the resident MD note as above, except as otherwise indicated; my additional comments, if necessary, are in bold. ? This patient has a high probability of sudden, clinically significant deterioration, which requires the highest level of physician preparedness to intervene urgently. I managed/supervised life or organ supporting interventions that required frequent physician assessment. I devoted my full attention to the direct care of this patient for the amount of time indicated below. Time I spent with family or surrogate(s) is included only if the patient was incapable of providing the necessary information or participating in medical decision making. Time devoted to teaching and to any procedures I billed separately is not included. ? Critical Care Documentation: The patient has the following organ/system impairment(s): As above Time spent providing critical care services: 30 minutes. ? SIGNATURE: Carmelo Hardy MD PATIENT NAME: Kate Oreilly DATE: 08/01/19 TIME: 3:39 PM PAGER/CONTACT #: [phone] [facility] PROGRESS HNO ID: [id number] Author: Emily Parikh) LORA Martinez Service: Neurosurgery Author Type: Physician Exercise Equipment Repair Technician Type: Progress Notes Filed: 08/01/2019 8:48 AM Note Text: Neurosurgery Progress Note SERVICE DATE: 08/01/2019 SUBJECTIVE: naeon - pt c/o significant h/a and neck discomfort. Sitting up eating breakfast. Denies n/v. OBJECTIVE: Vitals: Temp (24hrs), Av.3 ?C (97.3 ?F), Min:36.1 ?C (97 ?F), Max:36.4 ?C (97.5 ?F) BP 126/64 Pulse 64 Temp 36.3 ?C (97.3 ?F) Resp 14 Ht 170.2 cm (5' 7) Wt 85.7 kg (188 lb 15 oz) LMP (LMP Unknown) SpO2 97% BMI 29.59 kg/m? O2 Therapy: Room Air IANDO: Date 07/31/19 07 - 08/01/1965808/01/19699 - 08/02/19 0659 Shift 5382-4490 1244-4048 9373-1177 24 Hour Total 2575-8583 9959-8940 0387-8043 24 Hour Total INTAKE Shift Total OUTPUT Urine 200 200 Void (ml) 200 200 Urine Not Saved. 2 x 1 x 2 x 5 x Tubes 70 40 40 150 5 5 Drain/Tube Output (Drain/Tube 07/28/19 2130 Lumbar Midline Back) 70 40 40 150 5 5 Shift Total 70 240 40 350 5 5 Weight (kg) 85.7 85.7 85.7 85.7 85.7 85.7 85.7 85.7 MEDICATIONS Current Facility-Administered Medications Medication Dose Route Frequency - metoclopramide HCl 10 mg injection (REGLAN) 10 mg INTRAVENOUS q 6 H PRN - potassium chloride ER 20-40 mEq tab(s) (K-DUR, KLOR-CON) 20-40 mEq ORAL/FEEDING TUBE PRN Or - potassium chloride iv piggyback 20 mEq/100 mL 20 mEq INTRAVENOUS PRN - magnesium sulfate in water 2 g in sterile water 50 ml 2 g INTRAVENOUS PRN - sodium phosphate 45 mmol in NaCl 0.9% 250 mL 45 mmol INTRAVENOUS PRN - calcium gluconate 4 g in NaCl 0.9% 250 mL 4 g INTRAVENOUS PRN - polyethylene glycol 3350 17 g packet (MIRALAX, GLYCOLAX) 17 g ORAL/FEEDING TUBE DAILY - acetaminophen 650 mg tab(s) (TYLENOL) 650 mg ORAL q 4 H PRN - fentaNYL 50 mcg/mL 25-50 mcg injection (SUBLIMAZE) 25-50 mcg INTRAVENOUS q 1 H PRN - topiramate 50 mg tab(s) (TOPAMAX) 50 mg ORAL DAILY (6 AM) - topiramate 75 mg tab(s) (TOPAMAX) 75 mg ORAL DAILY AT 6 PM - levothyroxine 75 mcg tab(s) (SYNTHROID) 75 mcg ORAL DAILY - atenolol 50 mg tab(s) (TENORMIN) 50 mg ORAL DAILY - docusate sodium 100 mg cap(s) (COLACE) 100 mg ORAL BID Labs: Recent Labs 08/01/1951910/20 0400 NA 138 135* K 3.6 3.9 CHLOR 110* 108* CO2 22 22 BUN 13 16 CREAT 0.73 0.84 GLUC 98 110* ANION 10 9 CA 7.9* 8.7 MG 2.1 2.0 P 3.0 3.6 WBC 6.36 5.83 HB 14.3 14.4 HCT 44.2 45.7* PLT 208 214 Exam: GENERAL: No distress, Alert NEURO: orientedx3, msp intact, speech fluent HEENT: fluid collection unchanged; perrl/eomi LUNGS: Unlabored breathing ASSESSMENT AND PLAN: Active Hospital Problems Diagnosis Date Noted - Pseudomeningocele 07/27/2019 - Trigeminal neuralgia 05/18/2005 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 s/p crani for meningioma 04/2019 - s/p lumbar drain placement - neuro stable - pain control - pt very sensitive to narcotic - 'everything makes her very sick' - currently Tylenol - to OR likely this week for revision SIGNATURE: LORA Garrido PATIENT NAME: Kate Oreilly DATE: August 01, 2019 TIME: 8:17 AM Pager: [phone] Normal [facility] Phosphorus Bloodon 0 Phosphate [Mass/Vol] 3.0 mg/dL Normal 2.5-4.9 [facility] Comment on above: Performed By: #### G FR #### [place] [address] Basic Panelon 07-31-2019 Creatinine [Mass/Vol] 0.84 mg/dL Normal 0.51-0.95 [facility] Comment on above: Result Comment: Use of this assay is not recommended for patients undergoing treatment with phenindione, due to the potential for falsely depressed results. Performed By: #### G FR #### [facility] [address] [place], [place] [address] Glucose [Mass/Vol] 110 mg/dL High 70-99 [facility] Comment on above: Performed By: #### G FR #### [address] [address] Urea nitrogen [Mass/Vol] 16 mg/dL Normal 7-18 [facility] Comment on above: Performed By: #### G FR #### [facility] [address] [place] [address] Anion gap [Moles/Vol] 9 mmol/L Normal 8-16 [facility] Comment on above: Performed By: #### G FR #### [facility] [address] [place], [place] [address] Calcium [Mass/Vol] 8.7 mg/dL Normal 8.5-10.1 [facility] Comment on above: Performed By: #### G FR #### [facility] [address] [place] [address] CO2 [Moles/Vol] 22 mmol/L Normal 21-32 [facility] Comment on above: Performed By: #### G FR #### [facility] [address] [place] [address] Chloride [Moles/Vol] 108 mmol/L High 98-107 [facility] Comment on above: Performed By: #### G FR #### [facility] [address] [place] [address] Potassium [Moles/Vol] 3.9 mmol/L Normal 3.5-5.1 [facility] Comment on above: Performed By: #### G FR #### [facility] [address] [place] [address] Sodium [Moles/Vol] 135 mmol/L Low 136-145 [facility] Comment on above: Performed By: #### G FR #### [facility] [address] [place] [address] CASE MANAGEMon 07-31-2019 CASE MANAGEM HNO ID: [id number] Author: Sarah (Rn) CORTEZ Rubin Service: Care Management Author Type: Registered Nurse Type: Care Mgt Progress Note Filed: 07/31/2019 11:09 AM Note Text: CARE MANAGEMENT PROGRESS NOTE SERVICE DATE: July 31, 2019 SERVICE TIME: 1105 LOS: 3 days Needs Prior to Discharge: To Be Determined Chart reviewed. Patient remains in NSICU w/ lumbar drain. Nursing states plan for OR today. Unsure of DC needs at this time. Recommend PT/OT evals once medically ready. CM to follow for transitional needs. SIGNATURE: Sarah Rubin RN PATIENT NAME: Kate Oreilly DATE: July 31, 2019 TIME: 11:06 AM PAGER/CONTACT #: Normal [facility] Hemogram/Diffon 07-31-2019 Abs Immature Grans 0.01 thou/cmm Normal 0.00-0.05 [facility] Comment on above: Performed By: #### G FR #### [facility] [address] [place] [address] Abs Neut (ANC) 2.92 thou/cmm Normal 1.56-6.13 [facility] Comment on above: Performed By: #### G FR #### [place] [address] Abs. Baso 0.04 thou/cmm Normal 0.01-0.08 [facility] Comment on above: Performed By: #### G FR #### [place] [address] Abs. [place] 0.39 thou/cmm Normal 0.27-0.70 [facility] Comment on above: Performed By: #### G FR #### [facility] [address] [place] [address] Basophils/100 WBC (Bld) 0.7 % Normal [facility] Comment on above: Performed By: #### G FR #### [address] [address] Eosinophils (Bld) [#/Vol] 0.13 thou/cmm Normal 0.00-0.31 [facility] Comment on above: Performed By: #### G FR #### [facility] [address] [place] [address] Eosinophils/100 WBC (Bld) 2.2 % Normal [facility] Comment on above: Performed By: #### G FR #### [facility] [address] [place] [address] Erythrocyte distribution width (RBC) [Ratio] 13.2 % Normal 11.7-14.4 [facility] Comment on above: Performed By: #### G FR #### [facility] [address] [place], [place] [address] Hematocrit (Bld) [Volume fraction] 45.7 % High 34.1-44.9 [facility] Comment on above: Performed By: #### G FR #### [facility] [address] [place], [place] [address] Hemoglobin (Bld) [Mass/Vol] 14.4 g/dL Normal 11.2-15.7 [facility] Comment on above: Performed By: #### G FR #### [facility] [address] [place] [address] Immature Grans 0.20 % Normal [facility] Comment on above: Performed By: #### G FR #### [facility] [address] [place] [address] Lymphocytes (Bld) [#/Vol] 2.34 thou/cmm Normal 1.18-3.74 [facility] Comment on above: Performed By: #### G FR #### [facility] [address] [place] [address] Lymphocytes/100 WBC (Bld) 40.1 % Normal [facility] Comment on above: Performed By: #### G FR #### [facility] [facility] [address] [address] MCH (RBC) [Entitic mass] 29.4 pg Normal 25.6-32.2 [facility] Comment on above: Performed By: #### G FR #### [facility] [address] [address] MCHC (RBC) [Mass/Vol] 31.5 % Low 31.6-34.8 [facility] Comment on above: Performed By: #### G FR #### [facility] [address] [address] MCV (RBC) [Entitic vol] 93.5 fL Normal 79.4-94.8 [facility] Comment on above: Performed By: #### G FR #### [place] [address] Monocytes/100 WBC (Bld) 6.7 % Normal [facility] Comment on above: Performed By: #### G FR #### [facility] [address] [address] Platelet mean volume (Bld) [Entitic vol] 11.2 fL Normal 9.4-12.3 [facility] Comment on above: Performed By: #### G FR #### [facility] [address] [address] Platelets (Bld) [#/Vol] 214 thou/cmm Normal 182-369 [facility] Comment on above: Performed By: #### G FR #### [facility] [address] [address] RBC (Bld) [#/Vol] 4.89 mil/cmm Normal 3.93-5.22 [facility] Comment on above: Performed By: #### G FR #### [place] [address] RDW SD 45.2 fl Normal 36.4-46.3 [facility] Comment on above: Performed By: #### G FR #### [facility] [address] [address] Seg Neutrophil 50.1 % Normal [facility] Comment on above: Performed By: #### G FR #### [facility] [address] [address] WBC (Bld) [#/Vol] 5.83 thou/cmm Normal 3.98-10.04 [facility] Comment on above: Performed By: #### G FR #### [place] [address] Magnesium Bloodon 07-31-2019 Magnesium [Mass/Vol] 2.0 mg/dL Normal 1.6-2.6 [facility] Comment on above: Performed By: #### G FR #### [place] [address] PLAN OF CAREon 07-31-2019 PLAN OF CARE HNO ID: [id number] Author: Rose Jurado (Pharmacist) Service: Pharmacy Author Type: Pharmacist Type: Plan of Care Filed: 07/31/2019 11:15 AM Note Text: MEDICATION HISTORY AND MEDICATION RECONCILIATION Patient Name:Reena Oreilly : 1945 Source of history:Patient: Reliability of source: Appears reliable, clearly identified: Medication name, Medication dose and Medication frequency and Pharmacy records: [facility]: [phone] Medication Nonadherence Identified: No barriers noted The above information represents the best possible medication history: Yes Reconciliation completed? Yes All [employer] medications addressed by LIP Additional comments: [id number] Medication List Adjustments: Medication Regimen Changes: ? Adjusted APAP to 500 mg tablets, patient takes 2 tablets to equal 1000 mg 2 times daily (but up to 4 times daily) ? Adjusted topamax to 75 mg PM and 50 mg AM, per patient. She has 25 and 50 mg tablets at home Medications Added: ? None Medications Removed: ? Ibuprofen, on hold prior to procedure ? Singulair, patient states no longer taking ? Duplicate topamax 25 mg tablet Short-Term Medications: None Further Clarification Required: None Patient is a 30 day readmission: No Patient Interested in Bedside Delivery: No Time Spent Reviewing Patient's Medications: 25 minutes Allergies: ALLERGIES Allergen Reactions - Amoxicillin Rash - Carbamazepine Rash - Codeine Vomiting - Percocet [Oxycodone* Vomiting - Tegretol [Carbamaze* Vomiting Dizziness, couldn't see straight Skin reaction when went in sun - Tramadol Vomiting - Vicodin [Hydrocodon* Vomiting - Vioxx [Rofecoxib] Rash - Demerol [Meperidine* Intolerance - Neurontin [Gabapent* Intolerance Dizziness, feeling like I couldn't work - Topamax [Topiramate] Intolerance Flushed, red skin Preferred Pharmacy: [facility]: [phone] Current [employer] Medications: Prior to Admission medications as of 07/31/19 1003 Medication Sig Last Dose Taking acetaminophen (TYLENOL) 500 mg tablet Take 500 mg by mouth every 6 hours as needed for Pain. Yes topiramate (TOPAMAX) 50 mg tablet Take 1 tablet by mouth twice daily. Patient taking differently: Take 50 mg by mouth twice daily. 50 mg in AM, 75 mg HS Yes topiramate (TOPAMAX) 25 mg tablet Take 1 tablet by mouth twice daily. Patient taking differently: Take 25 mg by mouth once daily. 50 mg in AM, 75 mg HS Yes levothyroxine (SYNTHROID) 75 mcg tablet Take 1 tablet by mouth once daily. Yes atenolol (TENORMIN) 50 mg tablet Take 1 tablet by mouth once daily. Yes Rose Jurado, Pharmacist July 31, 2019 11:08 AM Normal [facility] PROGRESSon 07-31-2019 PROGRESS HNO ID: [id number] Author: Carmelo Hardy Service: Neurology ICU Author Type: Physician Type: Progress Notes Filed: 07/31/2019 3:46 PM Note Text: SERVICE DATE: 07/31/2019 SERVICE TIME: 2:11 PM NEURO ICU PROGRESS NOTE DATE OF ADMISSION: 07/26/2019 Subjective Hospital Course: 74 year old female with a history of trigeminal neuralgia s/p microvascular decompression of R trigeminal nerve 04/2019, and pseudomeningocele. Post-operatively after nerve decompression, she started noticing swelling behind her right ear. She started to develop difficulty swallowing. In ED, CT head and neck demonstrating [id number] fluid collection in R occipital region overlying surgical mesh, likely pseudomeningocele. She was admitted and neurosurgery monitoring on the RNF. Given continued expansion and progression of fluid buildup, lumbar drain was placed. Patient transferred to NSICU for lumbar drain placement and continued neuro monitoring. Events Since Last Note: No acute events overnight. Patient complains of ongoing headache this morning. Objective BP 144/66 Pulse 66 Temp 36.2 ?C (97.2 ?F) Resp 17 Ht 170.2 cm (5' 7) Wt 85.7 kg (188 lb 15 oz) LMP (LMP Unknown) SpO2 99% BMI 29.59 kg/m? Weight change: Neuro: GCS: Eyes: 4. Spontaneous Verbal: 5: Oriented Motor: 6: Obeys Motor commands Total: 15 CRANIAL NERVES: Normal mood and affect. CNII-XII grossly intact. MOTOR STRENGTH: Upper and lower extremity strength 4/5 bilaterally SENSATION: Intact light touch CV: S1S2 present. Regular rate. Pulm: Lungs clear to auscultation bilaterally., Mechanical Ventilation: No. Supplemental Oxygen: No GI/: Abdomen soft, non-tender. BSx4 Skin/Extremities: Edema- No Peripheral pulses- Present all extremities Wounds/Drsgs- No Breakdown- No Diagnostic tests reviewed for today's visit: Most recent labs and imaging results. Lines, Drains, and Airways Line Peripheral 07/26/19 1337 Right Forearm 20 Gauge 5 days Peripheral 07/29/19 0600 Short Left Hand 22 Gauge 2 days Drain Drain/Tube 07/28/19 2130 Lumbar Midline Back 2 days ICU Checklist Last Documented/Reviewed time: 07/30/2019 12:57 PM ICU Delirium Status: CAM Positive - new, will place orders Restraint Status: None ICU Mobility-Pt Has Been Out of Bed: Yes Line Status: None Ventilator: None Gregorio Status: None GI/Stress Ulcer Prophylaxis: None - not required Nutrition is at Goal: Yes VTE Prophylaxis: Chemoprophylaxis: No chemoprophylaxis No Chemoprophylaxis Reason: Bleeding risk Pressure Injury Status: None ICU Plan Reviewed with RN: Yes ICU Family Update in Last 24 Hours: Patient updated ICU Disposition- Is Patient Clinically Ready to Transfer to [facility] or SDU?: No Discharge Planning: Home PERSONAL INVOLVEMENT IN CARE: Reviewing initiation, responses and adjustments to therapies, coordination of care, and updating family with Staff Physician, Dr. Hardy. Assessment AND Plan Active Hospital Problems as of 07/31/2019 Noted - Resolved Hospital Trigeminal neuralgia 05/18/2005 - Present Current Assessment AND Plan Pain control Pseudomeningocele 07/27/2019 - Present Current Assessment AND Plan S/p lumbar drain neurosurg management Medication and Non-Pharmacologic VTE Prophylaxis/Anticoagulants 07/26/191714 vte pharmacologic prophylaxis contraindicated (tx,ar) 07/26/191714 pneumatic compression stockings (tx,ar) 07/26/191714 activity - mobilize patient ([place], [place]) VTE Prophylaxis: Contraindicated per neurosurgery at this time Plan of care discussed with: Provider, RN, Patient SIGNATURE: Leta Mcrae DO PATIENT NAME: Kate Oreilly DATE: July 31, 2019 TIME: 2:11 PM PAGER/CONTACT #: [phone] [facility] ADDENDUM Carmelo Hardy MD Pt seen and examined independently. Labs/vitals/imaging reviewed personally. Agree with above, reflecting my direct input. Trial Reglan. Options for pain control are sadly limited. Anticipate surgical revision later this week. C/w supportive care. PERSONAL INVOLVEMENT IN CARE: ? ?Patient/Family Updated: Patient and/or family were updated regarding the goals of care,?medical plan for the day, library consultant recommendations, medical disposition and current medical condition/prognosis as and if clinically indicated. All questions and concerns were answered and addressed at this juncture. I agree with the resident MD note as above, except as otherwise indicated; my additional comments, if necessary, are in bold. ? This patient has a high probability of sudden, clinically significant deterioration, which requires the highest level of physician preparedness to intervene urgently. I managed/supervised life or organ supporting interventions that required frequent physician assessment. I devoted my full attention to the direct care of this patient for the amount of time indicated below. Time I spent with family or surrogate(s) is included only if the patient was incapable of providing the necessary information or participating in medical decision making. Time devoted to teaching and to any procedures I billed separately is not included. ? Critical Care Documentation: The patient has the following organ/system impairment(s): As above Time spent providing critical care services: 30 minutes. ? SIGNATURE: Carmelo Hardy MD PATIENT NAME: Kate Oreilly DATE: 07/31/19 TIME: 3:42 PM PAGER/CONTACT #: [phone] [facility] PROGRESS HNO ID: [id number] Author: Milli Juárez Service: Neurosurgery Author Type: Physician Type: Progress Notes Filed: 07/31/2019 6:11 PM Note Text: Neurosurgery Progress Note SERVICE DATE: 07/31/2019 SUBJECTIVE: Just drained - c/o h/a, nausea and bilateral shoulder pain for 15min post drainage every hr. States symptoms worse with sitting up. Gets up to BSC. Voices frustration. OBJECTIVE: Vitals: Temp (24hrs), Av.2 ?C (97.2 ?F), Min:36 ?C (96.8 ?F), Max:36.6 ?C (97.9 ?F) BP 126/54 Pulse 77 Temp 36.2 ?C (97.2 ?F) Resp 19 Ht 170.2 cm (5' 7) Wt 85.7 kg (188 lb 15 oz) LMP (LMP Unknown) SpO2 99% BMI 29.59 kg/m? O2 Therapy: Room Air IANDO: Date 07/30/19699 - 07/31/19 0659 07/31/19699 - 08/01/19 0659 Shift 5088-8196 5756-0888 5896-8362 24 Hour Total 3877-9115 1787-5636 4049-0525 24 Hour Total INTAKE PO 720 580 734 9701 PO 720 354 427 5253 Shift Total 720 497 609 6405 OUTPUT Urine Urine Not Saved. 2 x 2 x Tubes 80 80 80 240 20 20 Drain/Tube Output (Drain/Tube 07/28/19 2130 Lumbar Midline Back) 80 80 80 240 20 20 # of BMs Number of BMs 1 x 1 x Shift Total 80 80 80 240 20 20 Weight (kg) 85.7 85.7 85.7 85.7 85.7 85.7 85.7 85.7 MEDICATIONS Current Facility-Administered Medications Medication Dose Route Frequency - potassium chloride ER 20-40 mEq tab(s) (K-DUR, KLOR-CON) 20-40 mEq ORAL/FEEDING TUBE PRN Or - potassium chloride iv piggyback 20 mEq/100 mL 20 mEq INTRAVENOUS PRN - magnesium sulfate in water 2 g in sterile water 50 ml 2 g INTRAVENOUS PRN - sodium phosphate 45 mmol in NaCl 0.9% 250 mL 45 mmol INTRAVENOUS PRN - calcium gluconate 4 g in NaCl 0.9% 250 mL 4 g INTRAVENOUS PRN - polyethylene glycol 3350 17 g packet (MIRALAX, GLYCOLAX) 17 g ORAL/FEEDING TUBE DAILY - acetaminophen 650 mg tab(s) (TYLENOL) 650 mg ORAL q 4 H PRN - fentaNYL 50 mcg/mL 25-50 mcg injection (SUBLIMAZE) 25-50 mcg INTRAVENOUS q 1 H PRN - topiramate 50 mg tab(s) (TOPAMAX) 50 mg ORAL DAILY (6 AM) - topiramate 75 mg tab(s) (TOPAMAX) 75 mg ORAL DAILY AT 6 PM - montelukast 10 mg tab(s) (SINGULAIR) 10 mg ORAL AT BEDTIME - levothyroxine 75 mcg tab(s) (SYNTHROID) 75 mcg ORAL DAILY - atenolol 50 mg tab(s) (TENORMIN) 50 mg ORAL DAILY - ondansetron 4 mg tab(s) (ZOFRAN) 4 mg ORAL q 6 H PRN Or - ondansetron (PF) 4 mg injection (ZOFRAN) 4 mg INTRAVENOUS q 6 H PRN - docusate sodium 100 mg cap(s) (COLACE) 100 mg ORAL BID Labs: Recent Labs 07/31/19 0400 07/30/19 0930 NA 135* 136 K 3.9 3.7 CHLOR 108* 106 CO2 22 22 BUN 16 15 CREAT 0.84 0.79 GLUC 110* 168* ANION 9 12 CA 8.7 8.5 MG 2.0 1.9 P 3.6 3.4 WBC 5.83 5.25 HB 14.4 14.2 HCT 45.7* 44.5 PLT 214 202 Exam: GENERAL: No distress, Alert NEURO: orientedx3; speech clear and fluent; msp intact and equal HEENT: fluid collection less than at admission; perrl/eomi; no droop LUNGS: Unlabored breathing NECK/BACK: Incision C/D/I, drain: 10cc/hr easily drains ASSESSMENT AND PLAN: Active Hospital Problems Diagnosis Date Noted - Pseudomeningocele 07/27/2019 74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, s/p mass resection crani 04/2019 - post lumbar drain - pain/nausea control - continue current mgt SIGNATURE: LORA Garrido PATIENT NAME: Kate Oreilly DATE: July 31, 2019 TIME: 8:41 AM Pager: [phone] Staff Addendum: The pseudomeningocele does not appear to be draining completely with lumbar drainage. Given that the collection does not fluctuate in size and that she was so symptomatic from mass effect when she arrived, will consider wound revision with continue lumbar drainage some time later this week (likely Wednesday or ). Additionally, given headaches post drainage, will decrease drainage to 5cc/hr. Milli Juárez MD Neurosurgery July 31, 2019 6:10 PM Normal [facility] Phosphorus Bloodon 02-10-202 0 Phosphate [Mass/Vol] 3.6 mg/dL Normal 2.5-4.9 [facility] Comment on above: Performed By: #### G FR #### [facility] [address], [place] [address] Basic Panelon 07-30-2019 Creatinine [Mass/Vol] 0.79 mg/dL Normal 0.51-0.95 [facility] Comment on above: Result Comment: Use of this assay is not recommended for patients undergoing treatment with phenindione, due to the potential for falsely depressed results. Performed By: #### P 8 #### [facility] [address], [place] [address] Anion gap [Moles/Vol] 12 mmol/L Normal 8-16 [facility] Comment on above: Performed By: #### P 8 #### [facility] [address], [place] [address] CO2 [Moles/Vol] 22 mmol/L Normal 21-32 [facility] Comment on above: Performed By: #### P 8 #### [facility] [address], [place] [address] Glucose [Mass/Vol] 168 mg/dL High 70-99 [facility] Comment on above: Performed By: #### P 8 #### [facility] [address], [place] [address] Urea nitrogen [Mass/Vol] 15 mg/dL Normal 7-18 [facility] Comment on above: Performed By: #### P 8 #### [facility] [address], [place] [address] Calcium [Mass/Vol] 8.5 mg/dL Normal 8.5-10.1 [facility] Comment on above: Performed By: #### P 8 #### [facility] [address], [place] [address] Chloride [Moles/Vol] 106 mmol/L Normal 98-107 [facility] Comment on above: Performed By: #### P 8 #### [facility] [address], [place] [address] Potassium [Moles/Vol] 3.7 mmol/L Normal 3.5-5.1 [facility] Comment on above: Performed By: #### P 8 #### [facility] [address], [place] [address] Sodium [Moles/Vol] 136 mmol/L Normal 136-145 [facility] Comment on above: Performed By: #### P 8 #### [facility] [address], [place] [address] CSF Cell Count/Diffon 2019 CSF/Lymph 86 % Normal [facility] Comment on above: Performed By: #### P 8 #### [facility] [address] [place], [place] [address] CSF/[place] 12 % Normal [facility] Comment on above: Performed By: #### P 8 #### [facility] [address], [place] [address] CSF/Seg 2 % Normal [facility] Comment on above: Performed By: #### P 8 #### [facility] [address], [place] [address] CSF Appearance Clear Normal [facility] Comment on above: Performed By: #### P 8 #### [facility] [address] [place], [place] [address] CSF Color Colorless Normal [facility] Comment on above: Performed By: #### P 8 #### [facility] [address], [place] [address] CSF/RBC 6 /cmm Normal 0 [facility] Comment on above: Performed By: #### P 8 #### [facility] [address] [place], [place] [address] Total Volume CSF 9.5 ml Normal [facility] Comment on above: Performed By: #### P 8 #### [facility] [address] [place], [place] [address] Vial# syringe Normal [facility] Comment on above: Performed By: #### P 8 #### [facility] [address] [place], [place] [address] WBC (Bld) [#/Vol] 50 /cmm High 0-5 [facility] Comment on above: Performed By: #### P 8 #### [facility] [address] [address] Xanthochromia No xantho Normal [facility] Comment on above: Performed By: #### P 8 #### [facility] [address] [address] Cult and Smr Body Fluidon Cult and Smr Body Fluid Test performed at [facility] No growth No organisms seen Moderate Mononuclear cells Gram stain was performed on a cytospun specimen Normal [facility] Comment on above: Performed By: #### G FR #### [facility] [address] [address] Glucose,CSFon 07-30-2019 Glucose,CSF 70 mg/dl Normal 60-70% of blood sugar. [facility] Comment on above: Performed By: #### G FR #### [facility] [address] [address] Hemogram/Diffon 07-30-2019 Abs Immature Grans 0.01 thou/cmm Normal 0.00-0.05 [facility] Comment on above: Performed By: #### P 8 #### [facility] [address] [address] Abs Neut (ANC) 2.97 thou/cmm Normal 1.56-6.13 [facility] Comment on above: Performed By: #### P 8 #### [facility] [address] [address] Abs. Baso 0.03 thou/cmm Normal 0.01-0.08 [facility] Comment on above: Performed By: #### P 8 #### [facility] [address] [address] Abs. [place] 0.24 thou/cmm Low 0.27-0.70 [facility] Comment on above: Performed By: #### P 8 #### [place] [address] Basophils/100 WBC (Bld) 0.6 % Normal [facility] Comment on above: Performed By: #### P 8 #### [place] [address] Eosinophils (Bld) [#/Vol] 0.10 thou/cmm Normal 0.00-0.31 [facility] Comment on above: Performed By: #### P 8 #### [facility] [address] [place], [place] [address] Eosinophils/100 WBC (Bld) 1.9 % Normal [facility] Comment on above: Performed By: #### P 8 #### [facility] [address] [address] Erythrocyte distribution width (RBC) [Ratio] 13.1 % Normal 11.7-14.4 [facility] Comment on above: Performed By: #### P 8 #### [facility] [address] [address] Hematocrit (Bld) [Volume fraction] 44.5 % Normal 34.1-44.9 [facility] Comment on above: Performed By: #### P 8 #### [facility] [address] [address] Hemoglobin (Bld) [Mass/Vol] 14.2 g/dL Normal 11.2-15.7 [facility] Comment on above: Performed By: #### P 8 #### [facility] [address] [place] [address] Immature Grans 0.20 % Normal [facility] Comment on above: Performed By: #### P 8 #### [address] [address] Lymphocytes (Bld) [#/Vol] 1.90 thou/cmm Normal 1.18-3.74 [facility] Comment on above: Performed By: #### P 8 #### [facility] [address] [place], [place] [address] Lymphocytes/100 WBC (Bld) 36.2 % Normal [facility] Comment on above: Performed By: #### P 8 #### [facility] [address] [address] MCH (RBC) [Entitic mass] 29.5 pg Normal 25.6-32.2 [facility] Comment on above: Performed By: #### P 8 #### [facility] [address] [place], [place] [address] MCHC (RBC) [Mass/Vol] 31.9 % Normal 31.6-34.8 [facility] Comment on above: Performed By: #### P 8 #### [facility] [address] [place], [place] [address] MCV (RBC) [Entitic vol] 92.3 fL Normal 79.4-94.8 [facility] Comment on above: Performed By: #### P 8 #### [facility] [address] [place] [address] Monocytes/100 WBC (Bld) 4.6 % Normal [facility] Comment on above: Performed By: #### P 8 #### [facility] [address] [place] [address] Platelet mean volume (Bld) [Entitic vol] 11.1 fL Normal 9.4-12.3 [facility] Comment on above: Performed By: #### P 8 #### [facility] [address] [place] [address] Platelets (Bld) [#/Vol] 202 thou/cmm Normal 182-369 [facility] Comment on above: Performed By: #### P 8 #### [facility] [address] [place] [address] RBC (Bld) [#/Vol] 4.82 mil/cmm Normal 3.93-5.22 [facility] Comment on above: Performed By: #### P 8 #### [facility] [address] [place] [address] RDW SD 44.4 fl Normal 36.4-46.3 [facility] Comment on above: Performed By: #### P 8 #### [facility] [address] [place], [place] [address] Seg Neutrophil 56.5 % Normal [facility] Comment on above: Performed By: #### P 8 #### [facility] [address] [place], [place] [address] WBC (Bld) [#/Vol] 5.25 thou/cmm Normal 3.98-10.04 [facility] Comment on above: Performed By: #### P 8 #### [facility] [address] [place], [place] [address] Magnesium Bloodon 07-30-2019 Magnesium [Mass/Vol] 1.9 mg/dL Normal 1.6-2.6 [facility] Comment on above: Performed By: #### P 8 #### [facility] [address] [place], [place] [address] PROGRESSon 07-30-2019 PROGRESS HNO ID: [id number] Author: Junie Steeel Service: Neurology ICU Author Type: Physician Type: Progress Notes Filed: 07/30/2019 12:57 PM Note Text: NEURO ICU - PROGRESS NOTE SERVICE DATE: 07/30/2019 Patient is a 74 year old female with past medical history significant for trigeminal neuralgia s/p microvascular decompression of R trigeminal nerve 04/2019, and pseudomeningocele. Post-operatively after nerve decompression, she started noticing swelling behind her left ear. This continued to swell and progress. She started to develop difficulty swallowing. In ED, CT head and neck demonstrating [id number] fluid collection in R occipital region overlying surgical mesh, likely pseudomeningocele. She was admitted and neurosurgery monitoring on the RNF. Given continued expansion and progression of fluid buildup. Dr. Juárez discussed plan for lumbar drain. Patient transferred to NSICU for lumbar drain placement and continued neuro monitoring. Objective DETAILED REVIEW VITAL SIGNS (last 24hrs min/max): Temp Av.5 ?C (97.7 ?F) Min: 36.3 ?C (97.3 ?F) Max: 36.6 ?C (97.9 ?F) Pulse Av.8 Min: 58 Max: 83 Cuff BP Min: 98/82 Max: 160/78 Resp Av.5 Min: 14 Max: 23 SpO2 Av.5 % Min: 94 % Max: 98 % No data recorded No data recordedNo data recordedNo data recordedNo data recorded Pain Level: 3 INTAKE/OUTPUT: Intake/Output Summary (Last 24 hours) at 07/30/2019 1251 Last data filed at 07/30/2019 1201 Gross per 24 hour Intake 360 ml Output 240 ml Net 120 ml CSF: 240 ml MIVF: KVO PO/TF: PO FREE WATER: N/A BM: Has the patient had a BM in the last 24 hours? Yes PHYSICAL EXAM AND PERTINENT DATA Neuro: AAO-3, BELL, motor 4/5 in UE and LE CV: S1S2 present, No M/G Pulm: AEBE< clear Mechanical Ventilation: No. Supplemental Oxygen: No GI/: soft, ND, postive bowel sound Skin/Extremities: Edema- No Peripheral pulses- Present all extremities Wounds/Drsgs- Yes Breakdown- No Current Facility-Administered Medications Medication Dose Route Frequency - potassium chloride ER 20-40 mEq tab(s) (K-DUR, KLOR-CON) 20-40 mEq ORAL/FEEDING TUBE PRN Or - potassium chloride iv piggyback 20 mEq/100 mL 20 mEq INTRAVENOUS PRN - magnesium sulfate in water 2 g in sterile water 50 ml 2 g INTRAVENOUS PRN - sodium phosphate 45 mmol in NaCl 0.9% 250 mL 45 mmol INTRAVENOUS PRN - calcium gluconate 4 g in NaCl 0.9% 250 mL 4 g INTRAVENOUS PRN - polyethylene glycol 3350 17 g packet (MIRALAX, GLYCOLAX) 17 g ORAL/FEEDING TUBE DAILY - acetaminophen 650 mg tab(s) (TYLENOL) 650 mg ORAL q 4 H PRN - topiramate 50 mg tab(s) (TOPAMAX) 50 mg ORAL DAILY (6 AM) - topiramate 75 mg tab(s) (TOPAMAX) 75 mg ORAL DAILY AT 6 PM - montelukast 10 mg tab(s) (SINGULAIR) 10 mg ORAL AT BEDTIME - levothyroxine 75 mcg tab(s) (SYNTHROID) 75 mcg ORAL DAILY - atenolol 50 mg tab(s) (TENORMIN) 50 mg ORAL DAILY - ondansetron 4 mg tab(s) (ZOFRAN) 4 mg ORAL q 6 H PRN Or - ondansetron (PF) 4 mg injection (ZOFRAN) 4 mg INTRAVENOUS q 6 H PRN - docusate sodium 100 mg cap(s) (COLACE) 100 mg ORAL BID LABS: CBC, Coags, BMP, Mg, Phos Recent Labs 07/30/19 0930 07/29/19 0520 07/27/19 1435 WBC 5.25 5.99 -- HB 14.2 13.9 -- HCT 44.5 44.2 -- PLT 202 209 -- INR -- -- 1.06 NA 136 138 -- K 3.7 3.9 -- CHLOR 106 108* -- CO2 22 25 -- BUN 15 14 -- CREAT 0.79 0.86 -- GLUC 168* 86 -- CA 8.5 8.6 -- MG 1.9 2.0 -- P 3.4 4.1 -- CSF AND Dilantin Recent Labs 07/27/19 1700 CWBC 163* CRBC 1,994 CSFPROT 454* CSFGLUC 5* Liver Function, Amylase, AND Lipase DATA: Diagnostic tests reviewed for today's visit: Most recent labs and imaging results. 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 Pt is asymptomatic and afebrile. Less likely to be infectious Plan to repeat CSF supportive care CSF drainage per protocol / instrution Improving pseudo meningocele DVT prophylaxis- Hold chemoprophylaxis Due to elevated Bleeding risk Diet bowel regimen Medication and Non-Pharmacologic VTE Prophylaxis/Anticoagulants 07/26/191714 vte pharmacologic prophylaxis contraindicated (tx,ar) 07/26/191714 pneumatic compression stockings (tx,ar) 07/26/191714 activity - mobilize patient ([place], [place]) VTE Prophylaxis: VTE prophylaxis appropriate ICU Checklist Last Documented/Reviewed time: 07/30/2019 12:57 PM ICU Delirium Status: CAM Positive - new, will place orders Restraint Status: None ICU Mobility-Pt Has Been Out of Bed: Yes Line Status: None Ventilator: None Gregorio Status: None GI/Stress Ulcer Prophylaxis: None - not required Nutrition is at Goal: Yes VTE Prophylaxis: Chemoprophylaxis: No chemoprophylaxis No Chemoprophylaxis Reason: Bleeding risk Pressure Injury Status: None ICU Plan Reviewed with RN: Yes ICU Family Update in Last 24 Hours: Patient updated ICU Disposition- Is Patient Clinically Ready to Transfer to [facility] or SDU?: No Discharge Planning: Home [facility] STAFF PHYSICIAN NOTE OF PERSONAL INVOLVEMENT IN CARE Patient/Family Updated: Patient, Kate Oreilly, updated regarding the goals of care, medical plan for the day, library consultant recommendations, medical disposition and current medical condition/prognosis as and if clinically indicated. All questions and concerns were answered and addressed at this juncture. This patient has a high probability of sudden, clinically significant deterioration, which requires the highest level of physician preparedness to intervene urgently. I managed/supervised life or organ supporting interventions that required frequent physician assessment. I devoted my full attention to the direct care of this patient for the amount of time indicated below. Time I spent with family or surrogate(s) is included only if the patient was incapable of providing the necessary information or participating in medical decision making. Time devoted to teaching and to any procedures I billed separately is not included. Critical Care Documentation: The patient has the following organ/system impairment(s): As above Time spent providing critical care services: 22 minutes. SIGNATURE: Junie Steele MD PATIENT NAME: Kate Oreilly DATE: July 30, 2019 TIME: 12:51 PM PAGER/CONTACT #: [phone] [facility] PROGRESS HNO ID: [id number] Author: Kylah Haider Service: Neurosurgery Author Type: Nurse Practitioner Type: Progress Notes Filed: 07/30/2019 9:00 AM Note Text: Neurosurgery Progress Note SERVICE DATE: 07/30/2019 SUBJECTIVE: No issues overnight. Sitting up in bed with c/o mild RÍOS. Lumbar drain intact/working--draining 10cc/hour without difficulty. Area of swelling behind ear appears smaller in size OBJECTIVE: Vitals: Temp (24hrs), Av.5 ?C (97.7 ?F), Min:36.3 ?C (97.3 ?F), Max:36.6 ?C (97.9 ?F) BP 124/108 Pulse 68 Temp 36.5 ?C (97.7 ?F) Resp 19 Ht 170.2 cm (5' 7) Wt 85.7 kg (188 lb 15 oz) LMP (LMP Unknown) SpO2 98% BMI 29.59 kg/m? O2 Therapy: Room Air IANDO: Date 07/29/19 07 - 07/30/19 0659 07/30/19 07 - 07/31/19 0659 Shift 3563-5335 0199-6219 1121-8339 24 Hour Total 5088-4805 2167-0908 3226-3099 24 Hour Total INTAKE Shift Total OUTPUT Urine Urine Not Saved. 2 x 1 x 3 x Tubes 80 80 80 240 20 20 Drain/Tube Output (Drain/Tube 07/28/19 2130 Lumbar Midline Back) 80 80 80 240 20 20 # of BMs Number of BMs 1 x 1 x Shift Total 80 80 80 240 20 20 Weight (kg) 85.7 85.7 85.7 85.7 85.7 85.7 85.7 85.7 MEDICATIONS Current Facility-Administered Medications Medication Dose Route Frequency - potassium chloride ER 20-40 mEq tab(s) (K-DUR, KLOR-CON) 20-40 mEq ORAL/FEEDING TUBE PRN Or - potassium chloride iv piggyback 20 mEq/100 mL 20 mEq INTRAVENOUS PRN - magnesium sulfate in water 2 g in sterile water 50 ml 2 g INTRAVENOUS PRN - sodium phosphate 45 mmol in NaCl 0.9% 250 mL 45 mmol INTRAVENOUS PRN - calcium gluconate 4 g in NaCl 0.9% 250 mL 4 g INTRAVENOUS PRN - topiramate 50 mg tab(s) (TOPAMAX) 50 mg ORAL DAILY (6 AM) - topiramate 75 mg tab(s) (TOPAMAX) 75 mg ORAL DAILY AT 6 PM - acetaminophen 650 mg tab(s) (TYLENOL) 650 mg ORAL q 6 H PRN - montelukast 10 mg tab(s) (SINGULAIR) 10 mg ORAL AT BEDTIME - levothyroxine 75 mcg tab(s) (SYNTHROID) 75 mcg ORAL DAILY - atenolol 50 mg tab(s) (TENORMIN) 50 mg ORAL DAILY - ondansetron 4 mg tab(s) (ZOFRAN) 4 mg ORAL q 6 H PRN Or - ondansetron (PF) 4 mg injection (ZOFRAN) 4 mg INTRAVENOUS q 6 H PRN - docusate sodium 100 mg cap(s) (COLACE) 100 mg ORAL BID Labs: Recent Labs 07/29/19 0520 07/27/19 1435 NA 138 -- K 3.9 -- CHLOR 108* -- CO2 25 -- BUN 14 -- CREAT 0.86 -- GLUC 86 -- ANION 9 -- CA 8.6 -- MG 2.0 -- P 4.1 -- WBC 5.99 -- HB 13.9 -- HCT 44.2 -- PLT 209 -- INR -- 1.06 Exam: GENERAL: No distress, Alert NEURO: AANDOx3, NAD, CN II-XII intact, PERRL/EOMI, MAEx4,equally, follows commands, speech clear, sensation intact HEENT: normocephalic, atraumatic LUNGS: Unlabored breathing CARDIAC: Regular rate and rhythm as above ABDOMEN: Soft, non-tender, non-distended EXTREMITIES: BELL, No deformities, No edema SKIN: Lumbar drain intact/draining 10cc/hr; Fluid collection behind right ear still present--soft--smaller then yesterday ? ASSESSMENT AND PLAN: Active Hospital Problems Diagnosis Date Noted - Pseudomeningocele 07/27/2019 74 yo with pseudomeningocele ? Neuro stable Diet as yuni Pain Control--cont current meds Cont Lumbar drain at 10cc/hr No blood thinners Cont ICU Drain ?- clamped at all times, except while draining OK OOB with drain clamped SIGNATURE: Kylah Haider APRN.[employer] MANAGER PATIENT NAME: Kate Oreilly DATE: July 30, 2019 TIME: 8:57 AM Normal [facility] Phosphorus Bloodon 0 Phosphate [Mass/Vol] 3.4 mg/dL Normal 2.5-4.9 [facility] Comment on above: Performed By: #### P 8 #### [facility] [address] [place], [place] [address] Protein CSFon 07-30-2019 Protein CSF 96 mg/dL High 15-45 [facility] Comment on above: Performed By: #### P 8 #### [facility] [address] [place], [place] [address] Basic Panelon 07-29-2019 Creatinine [Mass/Vol] 0.86 mg/dL Normal 0.51-0.95 [facility] Comment on above: Result Comment: Use of this assay is not recommended for patients undergoing treatment with phenindione, due to the potential for falsely depressed results. Performed By: #### P 8 #### [facility] [address] [place], [place] [address] Anion gap [Moles/Vol] 9 mmol/L Normal 8-16 [facility] Comment on above: Performed By: #### P 8 #### [facility] [address] [place], [place] [address] Calcium [Mass/Vol] 8.6 mg/dL Normal 8.5-10.1 [facility] Comment on above: Performed By: #### P 8 #### [facility] [address] [place], [place] [address] CO2 [Moles/Vol] 25 mmol/L Normal 21-32 [facility] Comment on above: Performed By: #### P 8 #### [facility] [address] [place], [place] [address] Glucose [Mass/Vol] 86 mg/dL Normal 70-99 [facility] Comment on above: Performed By: #### P 8 #### [facility] [address] [place], [place] [address] Urea nitrogen [Mass/Vol] 14 mg/dL Normal 7-18 [facility] Comment on above: Performed By: #### P 8 #### [address] [address] Chloride [Moles/Vol] 108 mmol/L High 98-107 [facility] Comment on above: Performed By: #### P 8 #### [facility] [address] [place], [place] [address] Potassium [Moles/Vol] 3.9 mmol/L Normal 3.5-5.1 [facility] Comment on above: Performed By: #### P 8 #### [facility] [address] [place], [place] [address] Sodium [Moles/Vol] 138 mmol/L Normal 136-145 [facility] Comment on above: Performed By: #### P 8 #### [facility] [address] [place], [place] [address] Hemogramon 07-29-2019 Erythrocyte distribution width (RBC) [Ratio] 13.4 % Normal 11.7-14.4 [facility] Comment on above: Performed By: #### P 8 #### [facility] [address] [place], [place] [address] Hematocrit (Bld) [Volume fraction] 44.2 % Normal 34.1-44.9 [facility] Comment on above: Performed By: #### P 8 #### [facility] [address] [place], [place] [address] Hemoglobin (Bld) [Mass/Vol] 13.9 g/dL Normal 11.2-15.7 [facility] Comment on above: Performed By: #### P 8 #### [facility] [address] [place], [place] [address] MCH (RBC) [Entitic mass] 29.6 pg Normal 25.6-32.2 [facility] Comment on above: Performed By: #### P 8 #### [facility] [address] [place], [place] [address] MCHC (RBC) [Mass/Vol] 31.4 % Low 31.6-34.8 [facility] Comment on above: Performed By: #### P 8 #### [facility] [address] [place], [place] [address] MCV (RBC) [Entitic vol] 94.0 fL Normal 79.4-94.8 [facility] Comment on above: Performed By: #### P 8 #### [facility] [address] [place], [place] [address] Platelet mean volume (Bld) [Entitic vol] 11.0 fL Normal 9.4-12.3 [facility] Comment on above: Performed By: #### P 8 #### [facility] [address] [place], [place] [address] Platelets (Bld) [#/Vol] 209 thou/cmm Normal 182-369 [facility] Comment on above: Performed By: #### P 8 #### [facility] [address] [place], [place] [address] RBC (Bld) [#/Vol] 4.70 mil/cmm Normal 3.93-5.22 [facility] Comment on above: Performed By: #### P 8 #### [facility] [address] [place], [place] [address] RDW SD 46.5 fl High 36.4-46.3 [facility] Comment on above: Performed By: #### P 8 #### [facility] [address] [place], [place] [address] WBC (Bld) [#/Vol] 5.99 thou/cmm Normal 3.98-10.04 [facility] Comment on above: Performed By: #### P 8 #### [facility] [address] [place] [address] Magnesium Bloodon 07-29-2019 Magnesium [Mass/Vol] 2.0 mg/dL Normal 1.6-2.6 [facility] Comment on above: Performed By: #### P 8 #### [facility] [address] [place] [id number] PROGRESSon 07-29-2019 PROGRESS HNO ID: [id number] Author: Junie Steele Service: Neurology ICU Author Type: Physician Type: Progress Notes Filed: 07/29/2019 12:46 PM Note Text: NEURO ICU - PROGRESS NOTE SERVICE DATE: 07/29/2019 HPI: Patient is a 74 year old female with past medical history significant for trigeminal neuralgia s/p microvascular decompression of R trigeminal nerve 04/2019, and pseudomeningocele. Post-operatively after nerve decompression, she started noticing swelling behind her left ear. This continued to swell and progress. She started to develop difficulty swallowing. In ED, CT head and neck demonstrating [id number] fluid collection in R occipital region overlying surgical mesh, likely pseudomeningocele. She was admitted and neurosurgery monitoring on the RNF. Given continued expansion and progression of fluid buildup. Dr. Juárez discussed plan for lumbar drain. Patient transferred to NSICU for lumbar drain placement and continued neuro monitoring. Objective DETAILED REVIEW VITAL SIGNS (last 24hrs min/max): Temp Av.6 ?C (97.8 ?F) Min: 36.3 ?C (97.3 ?F) Max: 36.8 ?C (98.2 ?F) Pulse Av.4 Min: 60 Max: 72 Cuff BP Min: 103/49 Max: 134/62 Resp Av.8 Min: 11 Max: 21 SpO2 Av.9 % Min: 94 % Max: 100 % No data recorded No data recordedNo data recordedNo data recordedNo data recorded Pain Level: 7 INTAKE/OUTPUT: Intake/Output Summary (Last 24 hours) at 07/29/2019 1240 Last data filed at 07/29/2019 1100 Gross per 24 hour Intake 150 ml Output 150 ml Net 0 ml CSF: 100 ml MIVF: KVO PO/TF: PO FREE WATER: N/A BM: Has the patient had a BM in the last 24 hours? Yes PHYSICAL EXAM AND PERTINENT DATA Neuro: awake ,alert, follows command. BELL, motor 5/5 CV: S1S2 present, no M/G Pulm: AEBE, clear Mechanical Ventilation: No. Supplemental Oxygen: No GI/: Soft, ND, postive bowel sound Skin/Extremities: Edema- No Peripheral pulses- Present all extremities Wounds/Drsgs- No Breakdown- No Current Facility-Administered Medications Medication Dose Route Frequency - topiramate 50 mg tab(s) (TOPAMAX) 50 mg ORAL DAILY (6 AM) - topiramate 75 mg tab(s) (TOPAMAX) 75 mg ORAL DAILY AT 6 PM - acetaminophen 650 mg tab(s) (TYLENOL) 650 mg ORAL q 6 H PRN - montelukast 10 mg tab(s) (SINGULAIR) 10 mg ORAL AT BEDTIME - levothyroxine 75 mcg tab(s) (SYNTHROID) 75 mcg ORAL DAILY - atenolol 50 mg tab(s) (TENORMIN) 50 mg ORAL DAILY - ondansetron 4 mg tab(s) (ZOFRAN) 4 mg ORAL q 6 H PRN Or - ondansetron (PF) 4 mg injection (ZOFRAN) 4 mg INTRAVENOUS q 6 H PRN - docusate sodium 100 mg cap(s) (COLACE) 100 mg ORAL BID LABS: CBC, Coags, BMP, Mg, Phos Recent Labs 07/29/19 0520 07/27/19 1435 07/26/19 1336 WBC 5.99 -- 5.37 HB 13.9 -- 13.4 HCT 44.2 -- 42.7 PLT 209 -- 213 INR -- 1.06 -- NA 138 -- 137 K 3.9 -- 3.9 CHLOR 108* -- 105 CO2 25 -- 25 BUN 14 -- 13 CREAT 0.86 -- 0.80 GLUC 86 -- 94 CA 8.6 -- 9.0 MG 2.0 -- -- P 4.1 -- -- CSF AND Dilantin Recent Labs 07/27/19 1700 CWBC 163* CRBC 1,994 CSFPROT 454* CSFGLUC 5* No new labs DATA: Diagnostic tests reviewed for today's visit: Most recent labs and imaging results. Assessment/Plan ACTIVE PROBLEM LIST Other Chronic Sinusitis Trigeminal Neuralgia FAMILY HISTORY OF GI NEOPLASM Hyperlipidemia, Mixed Hypothyroidism Unspecified Sleep Apnea Vitamin D deficiency Meningioma (Hcc) Essential Hypertension, Benign Low Back Pain Obesity, Class I, Bmi 30-34.9 Pseudomeningocele Close monitoring lumbar drain in place Periodic CSF Neuro check Progressive mobility SCD chemoprophylaxis 48 hrs post Drain placement Topamax Synthroid Atenolol for Management of HTN Medication and Non-Pharmacologic VTE Prophylaxis/Anticoagulants 07/26/19 171 vte pharmacologic prophylaxis contraindicated (tx,ar) 07/26/191714 pneumatic compression stockings (tx,ar) 07/26/19 171 activity - mobilize patient ([place], [place]) VTE Prophylaxis: Contraindicated Lumbar drai in place - plan to start chemoprophylaxis 48 hrs post op ICU Checklist Last Documented/Reviewed time: 07/29/2019 6:42 AM VTE Prophylaxis: [facility] STAFF PHYSICIAN NOTE OF PERSONAL INVOLVEMENT IN CARE Patient/Family Updated: Patient, Kate Oreilly, updated regarding the goals of care, medical plan for the day, library consultant recommendations, medical disposition and current medical condition/prognosis as and if clinically indicated. All questions and concerns were answered and addressed at this juncture. This patient has a high probability of sudden, clinically significant deterioration, which requires the highest level of physician preparedness to intervene urgently. I managed/supervised life or organ supporting interventions that required frequent physician assessment. I devoted my full attention to the direct care of this patient for the amount of time indicated below. Time I spent with family or surrogate(s) is included only if the patient was incapable of providing the necessary information or participating in medical decision making. Time devoted to teaching and to any procedures I billed separately is not included. Critical Care Documentation: The patient has the following organ/system impairment(s): as above Time spent providing critical care services: 15 minutes. SIGNATURE: Junie Steele MD PATIENT NAME: Kate Oreilly DATE: July 29, 2019 TIME: 12:40 PM PAGER/CONTACT #: [phone] [facility] PROGRESS HNO ID: [id number] Author: Kylah Haider Service: Neurosurgery Author Type: Nurse Practitioner Type: Progress Notes Filed: 07/29/2019 8:59 AM Note Text: Neurosurgery Progress Note SERVICE DATE: 07/29/2019 SUBJECTIVE: Pt sitting up in bed. No c/o except feeling stiff from lying in bed all night. Lumbar drain placed last night and working. OBJECTIVE: Vitals: Temp (24hrs), Av.6 ?C (97.8 ?F), Min:36.3 ?C (97.3 ?F), Max:36.8 ?C (98.2 ?F) BP 125/61 Pulse 67 Temp 36.8 ?C (98.2 ?F) (Temporal) Resp 18 Ht 170.2 cm (5' 7) Wt 85.7 kg (188 lb 15 oz) LMP (LMP Unknown) SpO2 96% BMI 29.59 kg/m? O2 Therapy: Room Air IANDO: Date 07/28/19699 - 07/29/1965807/29/19699 - 07/30/19 0659 Shift 8246-0693 2925-3318 5782-2953 24 Hour Total 7479-7432 9737-5833 3448-0231 24 Hour Total INTAKE PO 150 150 PO 150 150 Shift Total 150 150 OUTPUT Urine Urine Not Saved. 1 x 1 x 2 x Tubes 20 80 100 10 10 Drain/Tube Output (Drain/Tube 07/28/19 2130 Lumbar Midline Back) 20 80 100 10 10 Shift Total 20 80 100 10 10 Weight (kg) 85.7 85.7 85.7 85.7 85.7 85.7 85.7 85.7 MEDICATIONS Current Facility-Administered Medications Medication Dose Route Frequency - topiramate 50 mg tab(s) (TOPAMAX) 50 mg ORAL DAILY (6 AM) - topiramate 75 mg tab(s) (TOPAMAX) 75 mg ORAL DAILY AT 6 PM - acetaminophen 650 mg tab(s) (TYLENOL) 650 mg ORAL q 6 H PRN - montelukast 10 mg tab(s) (SINGULAIR) 10 mg ORAL AT BEDTIME - levothyroxine 75 mcg tab(s) (SYNTHROID) 75 mcg ORAL DAILY - atenolol 50 mg tab(s) (TENORMIN) 50 mg ORAL DAILY - ondansetron 4 mg tab(s) (ZOFRAN) 4 mg ORAL q 6 H PRN Or - ondansetron (PF) 4 mg injection (ZOFRAN) 4 mg INTRAVENOUS q 6 H PRN - docusate sodium 100 mg cap(s) (COLACE) 100 mg ORAL BID Labs: Recent Labs 07/29/19 0520 07/27/19 1435 07/26/19 1336 NA 138 -- 137 K 3.9 -- 3.9 CHLOR 108* -- 105 CO2 25 -- 25 BUN 14 -- 13 CREAT 0.86 -- 0.80 GLUC 86 -- 94 ANION 9 -- 11 CA 8.6 -- 9.0 MG 2.0 -- -- P 4.1 -- -- WBC 5.99 -- 5.37 HB 13.9 -- 13.4 HCT 44.2 -- 42.7 PLT 209 -- 213 INR -- 1.06 -- Exam: GENERAL: No distress, Alert NEURO: AANDOx3, NAD, CN II-XII intact, PERRL/EOMI, MAEx4,equally, follows commands, speech clear, sensation intact HEENT: normocephalic, atraumatic LUNGS: Unlabored breathing CARDIAC: Regular rate and rhythm as above ABDOMEN: Soft, non-tender, non-distended EXTREMITIES: BELL, No deformities, No edema SKIN: Lumbar drain intact/draining 10cc/hr; Fluid collection behind right ear still present--soft ASSESSMENT AND PLAN: Active Hospital Problems Diagnosis Date Noted - Pseudomeningocele 07/27/2019 74 yo with pseudomeningocele ? Neuro stable Cont Lumbar drain at 10cc/hr No blood thinners Cont ICU Drain - clamped at all times, except while draining OK OOB with drain clamped ? SIGNATURE: Kylah Haider APRN.[place] PATIENT NAME: Kate Oreilly DATE: July 29, 2019 TIME: 8:55 AM Normal [facility] Phosphorus Bloodon 0 Phosphate [Mass/Vol] 4.1 mg/dL Normal 2.5-4.9 [facility] Comment on above: Performed By: #### P 8 #### [place] [address] CONSULT PROGon 07-28-2019 CONSULT PROG HNO ID: [id number] Author: Jose Otoole Service: Hospital Medicine Author Type: Physician Type: Consult Progress Note Filed: 07/28/2019 4:51 PM Note Text: DEPARTMENT OF HOSPITAL MEDICINE PROGRESS NOTE SERVICE DATE: 07/28/2019 SERVICE TIME: 4:47 PM Hospital Medicine/Primary Attending: Jose otoole MD NIGHT AND WEEKEND COVERAGE: After 7pm, please call cross cover pager #[phone] Subjective INTERVAL HPI: Pt had aspiration of occipital swelling, but as per pt swelling has been about the same. Plan is for IR guided lumbar drain placement today. MEDICATIONS: Reviewed Objective PHYSICAL EXAM: BP 126/59 Pulse 61 Temp (Src) 97.3 (Oral) Resp 16 Ht 5' 7 (1.70m) Wt 188 lb 15 oz (85.7kg) SpO2 100% BMI 29.58 kg/(m2). O2 Therapy: Room Air Physical Exam Performed GENERAL: Alert, no distress, cooperative SKIN: swelling present behing the right ear, about the same size LUNGS: Lungs clear to auscultation, Good diaphragmatic excursion CARDIAC: Normal S1 and S2; no rubs, murmurs, or gallops ABDOMEN: Abdomen soft, non-tender, BS normal, No masses or organomegaly NEURO: Gait normal. Reflexes normal and symmetric. Sensation grossly intact, Cranial nerves II-XII intact Lines, Drains, and Airways Line Peripheral 07/26/19 1337 Right Forearm 20 Gauge 2 days DATA: Diagnostic tests reviewed for today's visit: Most recent labs and imaging results. Assessment/Plan #Right occipital swelling c/w meningocele #Trigeminal Neuralgia #Hypothyroidim #HTN ? Plan - Continue home dose of Levothyroxine, Atenolol - Continue topiramte at the same dose -Will follow with you - Management of meningocele per Neurosurgery * No resolved hospital problems. * Medication and Non-Pharmacologic VTE Prophylaxis/Anticoagulants 07/26/191714 vte pharmacologic prophylaxis contraindicated (tx,ar) 07/26/191714 pneumatic compression stockings ([place], [place]) 07/26/191714 activity - mobilize patient ([place], [place]) Disposition: Home Plan of care discussed with: Patient SIGNATURE: Jose otoole MD PATIENT NAME: Kate Oreilly DATE: July 28, 2019 TIME: 4:47 PM PAGER/CONTACT #: [phone] Normal [facility] CSF Cell Count/Diffon 2019 Interpretation See below Normal [facility] Comment on above: Performed By: #### C BC1 #### [place] [address] Interpreted by See below Normal [facility] Comment on above: Result Comment: Kaitlin Bhakta M.D., Pathologist No malignant cells identified. Macrophages present. Performed By: #### C BC1 #### [place] [address] NURSING PROGon 07-28-2019 NURSING PROG HNO ID: [id number] Author: Chloe (Rn) CORTEZ Caldwell Service: Nursing Author Type: Registered Nurse Type: Nursing Progress Note Filed: 07/28/2019 6:53 PM Note Text: Nursing Progress Note Patient Name: Kate Oreilly Patient Location: [id number] Report called to Sarah in NSICU Will let us know when bed ready, patient aware This note was completed by: Chloe Caldwell RN [facility] NURSING PROG HNO ID: [id number] Author: Clhoe Wagner) CORTEZ Caldwell Service: Nursing Author Type: Registered Nurse Type: Nursing Progress Note Filed: 07/28/2019 12:59 PM Note Text: Nursing Progress Note Patient Name: Kate Oreilly Patient Location: [id number]- Spoke to IR who states MD who is in IR today does not do lumbar therefore, lumbar drain cannot be done today. Tana GERMAIN with neurosurgery notified, order to keep patient NPO and states Dr. Juárez will have to do after office today. Will keep updated This note was completed by: Chloe Caldwell RN [facility] PROGRESSon 07-28-2019 PROGRESS HNO ID: [id number] Author: Tana Tello Service: Neurosurgery Author Type: Nurse Practitioner Type: Progress Notes Filed: 07/28/2019 1:44 PM Note Text: PROGRESS NOTE NEUROSURGERY SERVICE DATE: 07/28/2019 SERVICE TIME: 1050 Subjective INTERVAL HPI Sitting up in bed. Swelling to post R ear same as day of admission. No new symptoms. Current Facility-Administered Medications Medication Dose Route Frequency - topiramate 50 mg tab(s) (TOPAMAX) 50 mg ORAL DAILY (6 AM) - topiramate 75 mg tab(s) (TOPAMAX) 75 mg ORAL DAILY AT 6 PM - acetaminophen 650 mg tab(s) (TYLENOL) 650 mg ORAL q 6 H PRN - montelukast 10 mg tab(s) (SINGULAIR) 10 mg ORAL AT BEDTIME - levothyroxine 75 mcg tab(s) (SYNTHROID) 75 mcg ORAL DAILY - atenolol 50 mg tab(s) (TENORMIN) 50 mg ORAL DAILY - ondansetron 4 mg tab(s) (ZOFRAN) 4 mg ORAL q 6 H PRN Or - ondansetron (PF) 4 mg injection (ZOFRAN) 4 mg INTRAVENOUS q 6 H PRN - docusate sodium 100 mg cap(s) (COLACE) 100 mg ORAL BID Objective Physical Exam Performed: General - calm, pleasant Resp - even unlabored GI - abdomen soft NT, ND Skin - Incision - intact, no redness or drainage, Swelling [id number] right side behind R ear Neuro - A+O x3, PERRL, makes eye contact, speech clear, , BELL, strength 4/5 BUE and BLE VITAL SIGNS 24 HOUR REVIEW: Patient Vitals for the past 24 hrs: BP Temp Temp src Pulse Resp SpO2 07/28/19 0729 132/80 36.8 ?C (98.2 ?F) Oral 72 18 98 % 07/28/19 0600 124/64 36.7 ?C (98.1 ?F) Temporal 68 18 98 % 07/27/192032 126/61 36.5 ?C (97.7 ?F) Temporal 69 18 98 % Assessment/Plan Active Problems: Pseudomeningocele POA: Yes Assessment AND Plan: 74 yo with pseudomeningocele Plan for Lumbar drain today by IR Will be transferred to ICU for drain mgmt NPO until drain placed, then diet after No blood thinners Medicine following Drain - clamped at all times, except while draining OK OOB with drain clamped D/w Dr Juárez ADDENDUM - Pt to be transferred to ICU. Dr Juárez will place lumbar drain later today at the bedside. Resolved Problems: * No resolved hospital problems. * Medication and Non-Pharmacologic VTE Prophylaxis/Anticoagulants 07/26/191714 vte pharmacologic prophylaxis contraindicated (tx,ar) 07/26/191714 pneumatic compression stockings (tx,ar) 07/26/191714 activity - mobilize patient (tx,ar) VTE Prophylaxis: VTE prophylaxis appropriate SIGNATURE: Tana Tello APRN.[place] PATIENT NAME: Kate Oreilly DATE: July 28, 2019 TIME: 11:47 AM PAGER/CONTACT #: [phone] [facility] CASE MANAGEMon 07-27-2019 CASE MANAGEM HNO ID: [id number] Author: Nereyda Fink (Sw) Service: Care Management Author Type: Corn Detasseler Type: Care Mgt Progress Note Filed: 07/27/2019 12:27 PM Note Text: CARE MANAGEMENT PROGRESS NOTE SERVICE DATE: July 27, 2019 SERVICE TIME: 1145 LOS: 0 days Observation letter given to Pt on 07-27-19, 1145am Met with pt and observation letter given. Copy sent to admitting. 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 Last discharge within 30 days: No Advance Directive: Current Advance Directive: Health Care Power of Mortgage Lender In Chart: Yes Up To Date and Valid: Yes Health LiteracyHow often do you need to have someone help you when you read instructions, pamphlets, or other written material from your doctor or pharmacy? : 1 - Never How confident are you filling out medical forms by yourself?: 1 - Extremely Prior to Admission: Baseline Mental Status: Alert AND Oriented Prior to this illness, has anyone described the patient having any of the following behaviors? Not Applicable Relationship of the information to the patient:: Self Functional Status: Independent Does Patient Currently Receive Any Community Services or Home Care?: None Equipment Prior to Admission: None SOCIAL: Living Arrangements: Home Financial Resources: EmployedPrimary Contact: Extended Emergency Contact Information Primary Emergency Contact: Reynaldo Orielly Address: [address] [place] [address] [facility] Relation: Spouse Secondary Emergency Contact: Heaven Tian Mobile Relation: Daughter Supportive Patient Contact:: Yes Contact Resources: Family Social Needs Food insecurity Worry: Never true Inability: Never true Resources Needed: No Social Needs Financial resource strain: Not hard at all NA Social Needs Transportation needs Medical: No Non-medical: No Caregiver AssessmentCaregiver is ready, willing and able to meet the patient's needs as recommended by the inter-professional team:: No Caregiver needed Does the patient have an acute stroke diagnosis, or has the patient had a stroke during this admission?: No Family Name/Phone: namita [phone] Patient's perception of need for this admission: Neck pain Medication Adherance I am convinced of the importance of my prescription medication: 0 - Agree Completely I worry that my prescription medication will do more harm than good to me : 0 - Diagree Completely I feel financially burdened by my [id number] expenses for my prescription medication:: 0 - Diagree Completely Risk Score: 0 Patient is categorized as: Low risk < 2 Are you interested in bedside delivery of your medications? 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 Pt IND, -DME, +PCP, +script coverage. Pt fills her medications at [facility]. 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 No current discharge needs. SIGNATURE: KING Bustillo PATIENT NAME: Kate Oreilly DATE: July 27, 2019 TIME: 12:46 PM PAGER/CONTACT #: [phone] [facility] CONSULTon 07-27-2019 CONSULT HNO ID: [id number] Author: Jose Otoole Service: Hospital Medicine Author Type: Physician Type: Consults Filed: 07/27/2019 3:55 PM Note Text: DEPARTMENT OF HOSPITAL MEDICINE INITIAL CONSULT SERVICE DATE: 07/27/2019 SERVICE TIME: 8:23 AM Primary Care Physician: Kenn Beauchamp MD NIGHT AND WEEKEND COVERAGE: After 7pm, please call cross cover pager #[phone] REASON FOR CONSULT: Medical Co management REQUESTING PHYSICIAN: Dr Juárez Subjective CHIEF COMPLAINT: Right occipital swelling HPI: This is a 74 year old female who presents is admitted to Neurosurgery service for right occipital swelling c/w pseudomeningocele. Briefly this pt has h/o of trigeminal neuralgia. On pt had microvascular decompression of right trigeminal nerve. She was doing fine after surgery when about one week ago she started noticing swelling behind the right ear, which is progressively getting large in size. Associated symptoms are pain with swallowing. Denies fever, nausea and vomiting. In the ED pt has CT head and neck which revealed 2x7x 4 cm fluid collection in the right occipital region overlying the surgical mesh likely pseudomeningocele. Neurosurgery plan is conservative management Vs tapping fluid collection Vs lumbar drain placement. Is the Patient Experiencing Pain: No: 0 on a scale of 0 to 10 PAST MEDICAL HISTORY Diagnosis Date - Diverticulosis of colon (without mention of hemorrhage) - Family history of malignant neoplasm of gastrointestinal tract - Head injury 09/30 trip fall - HTN (hypertension) - Hypothyroidism - Internal hemorrhoids without mention of complication - SREEKANTH (obstructive sleep apnea) - Other and unspecified hyperlipidemia - Pneumonia 07/2011 - Snoring - Trigeminal neuralgia PAST SURGICAL HISTORY Procedure Laterality Date - BX OF BREAST; INCISIONAL Left LATE 'S Bx of breast, incisional - COLONOSCOP W/ OR W/O [facility] 03/12/08 - COLONOSCOP W/ OR W/O [facility] 02/05/14 Colonoscopy - COLONOSCOP W/ OR W/O [facility] 05/20/15 Colonoscopy - COLONOSCOP W/ OR W/O [facility] 01/23/2019 Colonoscopy - PAST SURGICAL HISTORY OF 09/03/2010 CRANIECTOMY EXCISON TUMOR, INFRATENTORIAL OR POST FOSSA, MENIGIOMA - PAST SURGICAL HISTORY OF 05/06/2011 right MVD fro [place] - REMOVAL OF TONSILS,<12 Y/O A CHILD Tonsillectomy - REMV CATARACT EXTRACAP,INSERT LENS 2012 Cataract Extraction with PC IOL - REMV CATARACT EXTRACAP,INSERT LENS 2012 Cataract Extraction with PC IOL FAMILY HISTORY Problem Relation Age of Onset - Alzheimer's Disease Mother - Heart Mother pacemaker - Stroke Mother - Heart Father VALVE REPLACEMENT,PACE MAKER - Heart Sister - Heart Brother - Heart Brother - Colon Cancer Sister - Breast Cancer Sister - Breast Cancer Daughter Social History Tobacco Use - Smoking status: Never Smoker - Smokeless tobacco: Never Used Substance Use Topics - Alcohol use: No - Drug use: No MEDICATIONS: Reviewed topiramate (TOPAMAX) 50 mg tablet, Take 1 tablet by mouth twice daily., Disp: 60 tablet, Rfl: 2 topiramate (TOPAMAX) 25 mg tablet, Take 1 tablet by mouth twice daily. (Patient taking differently: Take 25 mg by mouth once daily. With 50mg at night ), Disp: 60 tablet, Rfl: 2 acetaminophen (TYLENOL) 325 mg tablet, Take 650 mg by mouth every 6 hours as needed. , Disp: , Rfl: , Taking levothyroxine (SYNTHROID) 75 mcg tablet, Take 1 tablet by mouth once daily., Disp: 90 tablet, Rfl: 3, Taking atenolol (TENORMIN) 50 mg tablet, Take 1 tablet by mouth once daily., Disp: 90 tablet, Rfl: 3, Taking benzonatate (TESSALON PERLE) 100 mg capsule, Take 2 capsules by mouth three times daily as needed., Disp: 42 capsule, Rfl: 0, Taking topiramate (TOPAMAX) 25 mg tablet, Take 3 tablets by mouth twice daily., Disp: 180 tablet, Rfl: 0, Taking montelukast (SINGULAIR) 10 mg tablet, Take 1 tablet by mouth daily at bedtime. (Patient not taking: Reported on 06/23/2019 ), Disp: 90 tablet, Rfl: 3, Not Taking Ibuprofen 200 mg cap, Take by mouth as needed. ON HOLD , Disp: , Rfl: , Not Taking Current Facility-Administered Medications Medication Dose Route Frequency - iv contrast (radiology procedure) INTRAVENOUS DIRECTED PRN - topiramate 50 mg tab(s) (TOPAMAX) 50 mg ORAL DAILY (6 AM) - topiramate 75 mg tab(s) (TOPAMAX) 75 mg ORAL DAILY AT 6 PM - acetaminophen 650 mg tab(s) (TYLENOL) 650 mg ORAL q 6 H PRN - montelukast 10 mg tab(s) (SINGULAIR) 10 mg ORAL AT BEDTIME - levothyroxine 75 mcg tab(s) (SYNTHROID) 75 mcg ORAL DAILY - atenolol 50 mg tab(s) (TENORMIN) 50 mg ORAL DAILY - ondansetron 4 mg tab(s) (ZOFRAN) 4 mg ORAL q 6 H PRN Or - ondansetron (PF) 4 mg injection (ZOFRAN) 4 mg INTRAVENOUS q 6 H PRN - docusate sodium 100 mg cap(s) (COLACE) 100 mg ORAL BID . ALLERGIES Allergen Reactions - Amoxicillin Rash - Carbamazepine Rash - Codeine Vomiting - Percocet [Oxycodone* Vomiting - Tegretol [Carbamaze* Vomiting Dizziness, couldn't see straight Skin reaction when went in sun - Tramadol Vomiting - Vicodin [Hydrocodon* Vomiting - Vioxx [Rofecoxib] Rash - Demerol [Meperidine* Intolerance - Neurontin [Gabapent* Intolerance Dizziness, feeling like I couldn't work - Topamax [Topiramate] Intolerance Flushed, red skin REVIEW OF SYSTEMS: ROS: 10 points ROS reviewed, negative except mentioned in HPI Objective PHYSICAL EXAM: BP 118/55 Pulse 65 Temp (Src) 98.1 (Oral) Resp 18 Ht 5' 7 (1.70m) Wt 188 lb 15 oz (85.7kg) SpO2 95% BMI 29.58 kg/(m2). O2 Therapy: Room Air Physical Exam Performed: GENERAL: Alert, no distress, cooperative HEAD/SINUSES: Swelling behing right eart, firm in consistency EYES: PERRLA, EOMI BACK: Back symmetric, Normal curvature, ROM normal, No CVAT. LUNGS: Lungs clear to auscultation, Good diaphragmatic excursion CARDIAC: Normal S1 and S2; no rubs, murmurs, or gallops BREASTS: Exam deferred EXTREMITIES: Extremities normal, no deformities, edema, clubbing or skin discoloration. Good capillary refill., No ulcers NEURO: Grossly normal cognition, motor function, and cranial nerves III-XII Lines, Drains, and Airways Line Peripheral 07/26/19 1337 Right Forearm 20 Gauge less than 1 day DATA: Diagnostic tests reviewed for today's visit: Most recent labs and imaging results. Impression/Recommendations #Right occipital swelling c/w meningocele #Trigeminal Neuralgia #Hypothyroidim #HTN Plan - Continue home dose of Levothyroxine, Atenolol - Continue topiramte at the same dose -Will follow with you Disposition: Home Plan of care discussed with: Patient SIGNATURE: Jose otoole MD PATIENT NAME: Kate Oreilly DATE: July 27, 2019 TIME: 8:23 AM PAGER/CONTACT #: Normal [facility] CSF Cell Count/Diffon 2019 CSF/Eosin 2 % Normal [facility] Comment on above: Performed By: #### C BC1 #### [facility] [address] [place], [place] [address] CSF/Lymph 55 % Normal [facility] Comment on above: Performed By: #### C BC1 #### [facility] [address] [place], [place] [address] CSF/[place] 4 % Normal [facility] Comment on above: Performed By: #### C BC1 #### [facility] [address] [place], [place] [address] CSF/Other 37 % Normal [facility] Comment on above: Performed By: #### C BC1 #### [facility] [address] [place], [place] [address] CSF/Seg 2 % Normal [facility] Comment on above: Performed By: #### C BC1 #### [facility] [address] [place], [place] [address] CSF Appearance Hazy Normal [facility] Comment on above: Performed By: #### C BC1 #### [facility] [address] [place], [place] [address] CSF Color Yellow Normal [facility] Comment on above: Performed By: #### C BC1 #### [facility] [address] [place], [place] [address] CSF/RBC 1994 /cmm Normal 0 [facility] Comment on above: Performed By: #### C BC1 #### [facility] [address] [place], [place] [address] Total Volume CSF 50.0 ml Normal [facility] Comment on above: Performed By: #### C BC1 #### [facility] [address] [place], [place] [address] Vial# 1 Normal [facility] Comment on above: Performed By: #### C BC1 #### [facility] [address] [place], [place] [address] WBC (Bld) [#/Vol] 163 /cmm High 0-5 [facility] Comment on above: Performed By: #### C BC1 #### [facility] [address] [place], [place] [address] Xanthochromia Mkd xantho Normal [facility] Comment on above: Performed By: #### C BC1 #### [facility] [address] [place], [place] [address] CT BRAIN WO IVCONon 07-27-19 CT BRAIN WO IVCON * * *Final Report* * * DATE OF EXAM: Jul 27 2019 10:48AM [facility] 0504 - CT BRAIN WO IVCON / PROCEDURE REASON: Head trauma, CSF leak suspected * * * * Physician Interpretation * * * * EXAMINATION: CT BRAIN WO IVCON CLINICAL HISTORY: Head trauma, CSF leak suspected. Abnormal CT demonstrating a pseudomeningocele. TECHNIQUE: Serial axial images without IV contrast were obtained from the vertex to the foramen magnum. MQ: [id number] CT Dose-Length Product (DLP): 874 mGy*cm CT Dose Reduction Employed: Iterative recon COMPARISON: CT neck with IV contrast 07/26/2019. MRI brain 06/23/2019. CT brain 05/12/2019. RESULT: Post-operative change: Evidence of prior bilateral retromastoid craniectomy with metallic mesh cranioplasty is again noted. There is an extracranial CSF collection noted overlying the right craniectomy site consistent with a pseudomeningocele that measures at least 7.3 cm in craniocaudal dimension and measures 4.4 x 1.8 cm on image #80, series 2. Acute change: No evidence of an acute infarct or other acute parenchymal process. Hemorrhage: There is a low density right lateral cerebellar subdural fluid collections suggesting hygroma or chronic subdural hematoma that appears stable. Mass Lesion / Mass Effect: There is some calcification noted in the right anterior cerebellopontine angle cistern consistent with postsurgical changes related to prior trigeminal nerve decompression that appears stable. There is only minimal mass effect on the adjacent right cerebellum that appears stable. No midline shift. Chronic change: None apparent. Parenchyma: There is no significant volume loss. The brain parenchyma is otherwise within normal limits for age. Ventricles: The ventricles are within normal limits of size and configuration for age. Paranasal sinuses and skull base: The visualized paranasal sinuses are grossly clear. The skull base and imaged soft tissues are unremarkable. IMPRESSION: Right-sided pseudomeningocele overlying right occipital craniectomy site that is new/significantly increased compared to 05/12/2019. 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 Postsurgical changes related to prior right-sided trigeminal nerve decompression. Prior left posterior fossa meningioma resection. Curing Machine Operator: PSCB Transcribe Date/Time: Jul 27 2019 11:11A Dictated by : XIOMARA COLORADO MD This examination was interpreted and the report reviewed and electronically signed by: XIOMARA COLORADO MD on Jul 27 2019 11:20AM EST Normal [facility] Cult and Smr Body Fluidon Cult and Smr Body Fluid Test performed at [facility] No growth No organisms seen Many Polymorphonuclear leukocytes Many Mononuclear cells Gram stain was performed on a cytospun specimen Normal [facility] Comment on above: Performed By: #### C BC1 #### [facility] [address] [place], [place] [address] Glucose,CSFon 07-27-2019 Glucose,CSF 5 mg/dl Low 60-70% of blood sugar. [facility] Comment on above: Performed By: #### C BC1 #### [facility] [address] [place], [place] [address] PROGRESSon 07-27-2019 PROGRESS HNO ID: [id number] Author: Emily Tenorio (Lora) LORA Martinez Service: Neurosurgery Author Type: Physician Exercise Equipment Repair Technician Type: Progress Notes Filed: 07/27/2019 3:41 PM Note Text: Neurosurgery Progress Note SERVICE DATE: 07/27/2019 SUBJECTIVE: Kate just bathed herself and has been ambulating the hackett. She only c/o some pressure to the back of her head on the right. No n/v, no vision changes, no dizziness or imbalance. OBJECTIVE: Vitals: Temp (24hrs), Av.6 ?C (97.9 ?F), Min:36.4 ?C (97.5 ?F), Max:36.9 ?C (98.4 ?F) BP 126/74 Pulse 67 Temp 36.4 ?C (97.5 ?F) (Oral) Resp 18 Ht 170.2 cm (5' 7) Wt 85.7 kg (188 lb 15 oz) LMP (LMP Unknown) SpO2 94% BMI 29.59 kg/m? O2 Therapy: Room Air IANDO: Date 07/26/19 1500 - 07/27/1965807/27/19 07 - 07/28/19 0659 Shift 9586-7678 2358-2799 24 Hour Total 7790-6869 0367-4891 3007-6288 24 Hour Total INTAKE PO 240 240 PO 240 240 Shift Total 240 240 OUTPUT Urine Urine Not Saved. 3 x 3 x Shift Total Weight (kg) 85.7 85.7 85.7 85.7 85.7 85.7 85.7 MEDICATIONS Current Facility-Administered Medications Medication Dose Route Frequency - topiramate 50 mg tab(s) (TOPAMAX) 50 mg ORAL DAILY (6 AM) - topiramate 75 mg tab(s) (TOPAMAX) 75 mg ORAL DAILY AT 6 PM - acetaminophen 650 mg tab(s) (TYLENOL) 650 mg ORAL q 6 H PRN - montelukast 10 mg tab(s) (SINGULAIR) 10 mg ORAL AT BEDTIME - levothyroxine 75 mcg tab(s) (SYNTHROID) 75 mcg ORAL DAILY - atenolol 50 mg tab(s) (TENORMIN) 50 mg ORAL DAILY - ondansetron 4 mg tab(s) (ZOFRAN) 4 mg ORAL q 6 H PRN Or - ondansetron (PF) 4 mg injection (ZOFRAN) 4 mg INTRAVENOUS q 6 H PRN - docusate sodium 100 mg cap(s) (COLACE) 100 mg ORAL BID Labs: Recent Labs 07/27/19 1435 07/26/19 1336 NA -- 137 K -- 3.9 CHLOR -- 105 CO2 -- 25 BUN -- 13 CREAT -- 0.80 GLUC -- 94 ANION -- 11 CA -- 9.0 WBC -- 5.37 HB -- 13.4 HCT -- 42.7 PLT -- 213 INR 1.06 -- Exam: GENERAL: No distress, Alert, pleasant and in good spirits NEURO: orientedx3; speech clear and fluent; msp intact and equal HEENT: large fluid collection behind ear on right side of head; tense, not tender LUNGS: Unlabored breathing ASSESSMENT AND PLAN: Active Hospital Problems Diagnosis Date Noted - Pseudomeningocele 07/27/2019 74 year old female acute onset pseudomeningocele, s/p MVD 04/2019. - neuro stable - Dr. Juárez to drain fluid today and wrap head SIGNATURE: LORA Garrido PATIENT NAME: Kate Oreilly DATE: July 27, 2019 TIME: 3:36 PM Pager: [phone] Normal [facility] Protein CSFon 07-27-2019 Protein CSF 454 mg/dL High 15-45 [facility] Comment on above: Performed By: #### C BC1 #### [place] [id number] Protimeon 07-27-2019 INR Coag (PPP) [Relative time] 1.06 {INR} Normal 0.90-1.30 [facility] Comment on above: Result Comment: Edel min K Antagonist (VKA) Therapeutic Range: INR 2 to 3 (Target INR of 2.5) Note: For patients treated with VKA drugs, such as warfarin, the [employer] 2012 Guideline recommends a therapeutic INR range of 2 to 3 (target INR of 2.5). This recommendation includes high-risk patients with antiphospholipid syndrome with previous arterial or venous thromboembolism, current-generation mechanical or bioprosthetic aortic heart valve replacement. Note: Patients with mechanical aortic valve replacement and additional risk factors for thromboembolic events (atrial fibrillation, previous thromboembolism, LV dysfunction, hypercoagulable conditions) or an older generation mechanical AVR (i.e., ball in-Cage) or any mechanical MVR should have a INR therapeutic range of 2.5 to 3.5 target INR of 3). Venus GH, et al. Chest 2012; 141:7S-47S Gucci HUNT et al. [facility] 2017; 70: 252-289 Performed By: #### C BC1 #### [address] [address] PT Coag (PPP) [Time] 11.4 s Normal 9.7-13.0 [facility] Comment on above: Performed By: #### C BC1 #### [facility] [address] [place], [place] [address] Basic Panelon 07-26-2019 Creatinine [Mass/Vol] 0.80 mg/dL Normal 0.51-0.95 [facility] Comment on above: Result Comment: Use of this assay is not recommended for patients undergoing treatment with phenindione, due to the potential for falsely depressed results. Performed By: #### M APTT #### [facility] [address] [place], [place] [address] Anion gap [Moles/Vol] 11 mmol/L Normal 8-16 [facility] Comment on above: Performed By: #### M APTT #### [address] [address] CO2 [Moles/Vol] 25 mmol/L Normal 21-32 [facility] Comment on above: Performed By: #### M APTT #### [address] [address] Glucose [Mass/Vol] 94 mg/dL Normal 70-99 [facility] Comment on above: Performed By: #### M APTT #### [address] [address] Urea nitrogen [Mass/Vol] 13 mg/dL Normal 7-18 [facility] Comment on above: Performed By: #### M APTT #### [address] [address] Calcium [Mass/Vol] 9.0 mg/dL Normal 8.5-10.1 [facility] Comment on above: Performed By: #### M APTT #### [address] [address] Chloride [Moles/Vol] 105 mmol/L Normal 98-107 [facility] Comment on above: Performed By: #### M APTT #### [address] [address] Potassium [Moles/Vol] 3.9 mmol/L Normal 3.5-5.1 [facility] Comment on above: Performed By: #### M APTT #### [facility] [address] [place], [place] [address] Sodium [Moles/Vol] 137 mmol/L Normal 136-145 [facility] Comment on above: Performed By: #### M APTT #### [facility] [address] [place], [place] [address] CRPon 07-26-2019 CRP [Mass/Vol] mg/L Normal 0.00-0.30 [facility] Comment on above: Performed By: #### C BC1 #### [facility] [address] [place], [place] [address] CT NECK SOFT TISSUE W IVCONo n 07-26-2019 CT NECK SOFT TISSUE W IVCON * * *Final Report* * * DATE OF EXAM: Jul 26 2019 3:33PM [facility] 0013 - CT NECK SOFT TISSUE W IVCON / PROCEDURE REASON: Mass, lump or swelling, neck * * * * Physician Interpretation * * * * CONTRAST-ENHANCED CT OF THE NECK EXAM DATE: 07/26/2019 CLINICAL HISTORY: Right posterior neck palpable mass and swelling. TECHNIQUE: Following the administration of intravenous contrast, thin section axial images of the neck were obtained.. Coronal and sagittal reformatted images were reviewed. Contrast: 100 mL Omnipaque [address] Dose-Length Product: 371 mGy*cm CT Dose Reduction Employed: Automated exposure control and iterative reconstruction COMPARISON: Brain MRI dated 06/23/2019 RESULT: Pharynx/larynx: The nasopharynx, oropharynx, hypopharynx, and larynx are patent without asymmetric soft tissue. The proximal trachea and cervical esophagus are unremarkable. Oral cavity: Evaluation of the oral cavity is limited by artifact from dental amalgam. The visualized portions of the oral tongue and floor of mouth are intact. Glands: The parotid and submandibular salivary glands have a normal appearance without focal lesions. No calcifications are seen along the course of Stensen's or Lawton's ducts. No abnormalities of the thyroid gland are identified. Cervical soft tissues: There are small lymph nodes in the supra-and infrahyoid neck that are not enlarged by size criteria and are likely reactive. No lymph nodes with suspicious morphologic or enhancement characteristics are identified. There are postoperative changes of bilateral retrosigmoid craniotomy/craniectomy with associated mesh material. Overlying the right occipital region measuring, within the subcutaneous tissues, there is a low-density fluid collection measuring approximately 2.2 x 4.2 x 7.3 cm. This corresponds as palpated. No acute abnormalities are identified in the visualized portions of the brain parenchyma. Asymmetric hyperdensity/enhancement is appreciated in the region the right aspect prepontine cistern as depicted on recent comparison MRI scan. No acute intracranial abnormality within the visualized brain parenchyma. The visualized paranasal sinuses and mastoid air cells are grossly clear. Mild multilevel degenerative changes throughout the spine. The visualized lung apices are grossly clear. 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 This correlates as palpated. Curing Machine Operator: GEMA Transcribe Date/Time: Jul 26 2019 3:45P Dictated by : LEANDER SAWYER MD This examination was interpreted and the report reviewed and electronically signed by: LEANDER SAWYER MD on Jul 26 2019 3:55PM EST [facility] ED NOTEon 07-26-2019 ED NOTE HNO ID: [id number] Author: Leslie Wagner) CORTEZ Sandoval Service: Emergency Medicine Author Type: Registered Nurse Type: ED Notes Filed: 07/26/2019 5:49 PM Note Text: Report called to Cher EVANGELISTA, opportunity provided to answer questions. [facility] ED NOTE HNO ID: [id number] Author: Leslie Wagner) CORTEZ Sandoval Service: Emergency Medicine Author Type: Registered Nurse Type: ED Notes Filed: 07/26/2019 5:32 PM Note Text: Pt aware of meds ordered for her, pt sts she took all of her meds this AM, except second dose of Topamax and pain meds, Tana DIGITAL WATCH ASSEMBLER aware. [facility] ED NOTE HNO ID: [id number] Author: Cecilia Wagner) CORTEZ Burrell Service: Emergency Medicine Author Type: Registered Nurse Type: ED Notes Filed: 07/26/2019 4:49 PM Note Text: Neurosurg at bedside [facility] ED NOTE HNO ID: [id number] Author: Cecilia Wagner) CORTEZ Burrell Service: Emergency Medicine Author Type: Registered Nurse Type: ED Notes Filed: 07/26/2019 2:33 PM Note Text: CT aware of order [facility] ED NOTE HNO ID: [id number] Author: Cecilia MartínezRn) CORTEZ Burrell Service: Emergency Medicine Author Type: Registered Nurse Type: ED Notes Filed: 07/26/2019 1:38 PM Note Text: RN unable to obtain IV access. Second RN to attempt with US machine [facility] ED NOTE HNO ID: [id number] Author: La MartínezRn) CORTEZ Gracia Service: ? Author Type: Registered Nurse Type: ED Notes Filed: 07/26/2019 11:15 AM Note Text: Bed: 41-ED Expected date: Expected time: Means of arrival: Comments: TRIAGE [facility] ED PROV NOTEon 07-26-2019 ED PROV NOTE HNO ID: [id number] Author: Venkat Duke MD Service: Emergency Medicine Author Type: Physician Type: ED Provider Notes Filed: 07/26/2019 3:34 PM Note Text: ED attending note 74-year-old female presents emergency Department with post surgical complications from a trigeminal decompression surgery that was performed about 2 months ago. About 10 days ago patient had sudden swelling at the site of the surgery. Since that time she's had increasing swelling and pain and now has some difficulty when she swallows. She also notes some right ear pain. On exam the mass behind her ear is proximal weight 7 x 4 cm. It is swollen consistent with a hematoma or seroma. There is no bruit to it. She has some fullness on the right side of her neck but no crepitus. Neurological exam nonfocal. Oropharynx is clear. Plan for CT evaluation and then discussion with surgeon. Venkat Duke MD 07/26/19 1534 [facility] ED PROV NOTE HNO ID: [id number] Author: Venkat Duke MD Service: Emergency Medicine Author Type: Physician Type: ED Provider Notes Filed: 07/28/2019 10:56 AM Note Text: ED Provider Note Patient Name: Kate Oreilly SERVICE DATE: 07/26/19 History Patient presents with: Neck Pain: surg in nov for trig neuralgia, sent by doc for CT for swelling in right neck for 1 week, painful to swallow, pain in jaw, -fever 74-year-old female history of hypertension, trigeminal neuralgia status post right-sided surgery for trigeminal neuralgia 2 months ago presents with worsening swelling from the incision site. Patient states over the past 2 weeks she's had swelling in the area that she had the incision in the right occipital region. States over the past 2 days she's also had a sore throat and feels like the swelling is moving into the right side of her neck. Denies any associated shortness of breath, inability to control her secretions. Denies any swelling in her throat, tongue, oral cavity. Denies any fevers, chills, drainage from the surgical site. States that she tried to call Dr. Juárez's office but they're unable to get in contact and were told to come to the ED. Patient is apparently supposed to have a CT scan to differentiate the swelling. Denies any sensory chest pain, shortness of breath, abdominal pain, urinary symptoms, blood in her stool, nausea, vomiting, diarrhea. PAST MEDICAL HISTORY Diagnosis Date - Diverticulosis of colon (without mention of hemorrhage) - Family history of malignant neoplasm of gastrointestinal tract - Head injury 09/30 trip fall - HTN (hypertension) - Hypothyroidism - Internal hemorrhoids without mention of complication - SREEKANTH (obstructive sleep apnea) - Other and unspecified hyperlipidemia - Pneumonia 07/2011 - Snoring - Trigeminal neuralgia PAST SURGICAL HISTORY Procedure Laterality Date - BX OF BREAST; INCISIONAL Left LATE Bx of breast, incisional - COLONOSCOP W/ OR W/O [facility] SPEC 03/12/08 - COLONOSCOP W/ OR W/O [facility] SPEC 02/05/14 Colonoscopy - COLONOSCOP W/ OR W/O [facility] SPEC 05/20/15 Colonoscopy - COLONOSCOP W/ OR W/O [facility] SPEC 01/23/2019 Colonoscopy - PAST SURGICAL HISTORY OF 09/03/2010 CRANIECTOMY EXCISON TUMOR, INFRATENTORIAL OR POST FOSSA, MENIGIOMA - PAST SURGICAL HISTORY OF 05/06/2011 right MVD fro [place] - REMOVAL OF TONSILS,<12 Y/O A CHILD Tonsillectomy - REMV CATARACT EXTRACAP,INSERT LENS 2012 Cataract Extraction with PC IOL - REMV CATARACT EXTRACAP,INSERT LENS 2012 Cataract Extraction with PC IOL FAMILY HISTORY Problem Relation Age of Onset - Alzheimer's Disease Mother - Heart Mother pacemaker - Stroke Mother - Heart Father VALVE REPLACEMENT,PACE MAKER - Heart Sister - Heart Brother - Heart Brother - Colon Cancer Sister - Breast Cancer Sister - Breast Cancer Daughter Social History Tobacco Use - Smoking status: Never Smoker - Smokeless tobacco: Never Used Substance and Sexual Activity - Alcohol use: No - Drug use: No - Sexual activity: Not on file ALLERGIES Allergen Reactions - Amoxicillin Rash - Carbamazepine Rash - Codeine Vomiting - Percocet [Oxycodone* Vomiting - Tegretol [Carbamaze* Vomiting Dizziness, couldn't see straight Skin reaction when went in sun - Tramadol Vomiting - Vicodin [Hydrocodon* Vomiting - Vioxx [Rofecoxib] Rash - Demerol [Meperidine* Intolerance - Neurontin [Gabapent* Intolerance Dizziness, feeling like I couldn't work - Topamax [Topiramate] Intolerance Flushed, red skin Review of Systems Constitutional: Positive for activity change. Negative for appetite change, chills, diaphoresis, fatigue and fever. HENT: Positive for ear pain, facial swelling and sore throat. Negative for congestion, dental problem, drooling, ear discharge, hearing loss, mouth sores, nosebleeds, postnasal drip, rhinorrhea, sinus pressure, sinus pain, sneezing, tinnitus, trouble swallowing and voice change. Eyes: Negative for photophobia, redness and visual disturbance. Respiratory: Negative for cough, choking, chest tightness, shortness of breath, wheezing and stridor. Cardiovascular: Negative for chest pain, palpitations and leg swelling. Gastrointestinal: Negative for abdominal pain, blood in stool, diarrhea, nausea and vomiting. Genitourinary: Negative for dysuria, flank pain, frequency and hematuria. Musculoskeletal: Negative for arthralgias, back pain and neck pain. Skin: Positive for wound. Swelling at the surgical site in the right occipital region described as worsening over the past week, denies any drainage, redness, pain to palpation. Neurological: Negative for dizziness, seizures, syncope, facial asymmetry, weakness, light-headedness, numbness and headaches. Physical Exam BP 161/73 Pulse 74 Temp 97.9 Resp 18 Ht 5' 7 (1.70m) Wt 208 lb (94.3kg) SpO2 97% BMI 32.57 kg/(m2). O2 Therapy: Room Air Physical Exam Vitals signs and nursing note reviewed. Constitutional: General: She is not in acute distress. Appearance: Normal appearance. She is well-developed and normal weight. She is not ill-appearing, toxic-appearing or diaphoretic. HENT: Head: Normocephalic and atraumatic. Right Ear: Tympanic membrane, ear canal and external ear normal. There is no impacted cerumen. Left Ear: Tympanic membrane, ear canal and external ear normal. There is no impacted cerumen. Nose: Nose normal. No congestion or rhinorrhea. Mouth/Throat: Mouth: Mucous membranes are dry. Pharynx: Oropharynx is clear. No oropharyngeal exudate or posterior oropharyngeal erythema. Comments: No signs of swelling in the tongue, posterior pharynx, no uvular deviation. No exudates or signs of infection or bleeding. Eyes: Pupils: Pupils are equal, round, and reactive to light. Neck: Musculoskeletal: Normal range of motion. Cardiovascular: Rate and Rhythm: Normal rate and regular rhythm. Pulses: Normal pulses. Pulmonary: Effort: Pulmonary effort is normal. No tachypnea, accessory muscle usage or respiratory distress. Breath sounds: Normal breath sounds. No stridor. No decreased breath sounds, wheezing, rhonchi or rales. Abdominal: General: Bowel sounds are normal. There is no distension. Palpations: Abdomen is soft. Tenderness: There is no abdominal tenderness. There is no guarding or rebound. Musculoskeletal: Right lower leg: No edema. Left lower leg: No edema. Neurological: Mental Status: She is alert and oriented to person, place, and time. She is not disoriented. Cranial Nerves: No cranial nerve deficit. Diagnostic Testing ED Labs Ordered and Reviewed - No data to display Procedures ED Course / Clinical Impression Clinical Impressions as of Jul 27 2235 Encounter for post surgical wound check MDM / Disposition / Plan Kate Oreilly is a 74 year old female who presented to the ED with chief complaint of surgical incision swelling over the past 2 weeks. Initial VS unremarkable, stable throughout her stay in the ED. Patient well appearing, no acute distress, nontoxic-appearing. Please see HPI and PE for pertinent information. Patient has a fluctuant mass at the incision site from her surgery 2 months ago. It is nontender, soft, no crepitus present, no drainage at this time. No signs of acute infection of the fluctuant area on the back of the neck. No signs of respiratory compromise. Plan at this time is to perform basic labs and CT imaging to further differentiate the fluctuant area in the patient's back the neck. CT imaging showed 2.2 x 4.7 x 7.3 cm well marginated fluid collection in the right occipital region most likely representing pseudomeningocele. Neurosurgery team consulted. They recommended ESR, CRP studies. After they saw the patient. They recommended admitting the patient for further management. Patient was admitted to the medical floor under Dr. Juárez, patient remains stable condition during her stay in the ED. SIGNATURE: DO Jose Hairston (Res) DO [place] Resident 07/27/19 7075 Attending Note I evaluated the patient and personally participated in the parker components. I agree with the resident's findings and plan with the following revisions and/or additions: Please see my separate attending note. Venkat Duke MD 07/28/19 1056 [facility] ED Triage Noteon 07-26-2019 ED Triage Note HNO ID: [id number] Author: Kenya Parikh) LORA Hood Service: Emergency Medicine Author Type: Physician Exercise Equipment Repair Technician Type: ED Triage Notes Filed: 07/26/2019 11:17 AM Note Text: ED INTAKE NOTE Patient Name: Kate Oreilly Service Date: 07/26/19 BRIEF HPI: Kate Oreilly is a 74 year old FEMALE with PMHx of trigeminal neuralgia presenting to the ED c/o swelling x 1 week. Had surgery for trigeminal neuralgia in April. For the last week has had swelling at surgical site with TTP. Has been following up, and was told to come to the ED due to worsening swelling to get a CT scan. -F/C.+pain on swallowing. BRIEF EXAM: Constitutional: Well-developed, well-nourished, NAD. HEENT: Normocephalic, atraumatic. +soft edema posterior to right ear. -erythema. Respiratory: No respiratory distress. Cardiac: RRR. Musculoskeltal: BELL x4. Patient ambulating in triage without difficulty. Neuro: AANDOx3. Skin: Warm and dry. INTAKE WORKUP: Bloodwork: CBC, BMP SIGNATURE: LORA Connelly [facility] HISTORY PHYSICALon 0 HISTORY PHYSICAL HNO ID: [id number] Author: Tana Tello Service: Neurosurgery Author Type: Nurse Practitioner Type: HANDP Filed: 07/26/2019 5:33 PM Note Text: -- Attestation signed by Milli Juárez at 07/26/2019 5:36 PM Staff Addendum: Agree with above. 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 This may be due to new fluid leakage(one way valve effect) after extensive coughing. Will repeat CTH tomorrow to verify no signs of progressive new onset hydrocephalus. Continue topamax. Have multiple options: conservative management Tap fluid collection and wrap head Lumbar drain with head wrap. Will discuss options with patient. Milli Juárez MD Neurosurgery July 26, 2019 5:36 PM -- HISTORY AND PHYSICAL EXAMINATION NEurosurgery SERVICE DATE: 07/26/2019 SERVICE TIME: 5:21 PM PRIMARY CARE PHYSICIAN: Kenn Beauchamp MD Subjective CHIEF COMPLAINT: Headache, swelling HPI: This is a 74 year old female who presents with swelling behind right ear with ear pain and headache. PMH significant for HTN, hypotension, hypothyroidism,SREEKANTH, HPL, trigeminal neuralgia. Pt has surgery 05/12/[address] Juárez for trigeminal neuralgia and did very well until had illness about one month ago with severe coughing, and sinus congestion that lasted 2-3 weeks. Pt states the swelling behind right ear 10 days ago and has gradually increased in size. Pt c/o R ear pain, jaw pain, numbness to R lower lip. Denies headache, seizures, vision changes, hearing loss, balance issues, falls or injury. Pt states she has been taking her medications as prescribed except Topamax 50mg in am and 75mg q hs. (should be 75mg BID) Pt was seen in Neurosurgery office 07/17/19 by [place]. PAST MEDICAL HISTORY Diagnosis Date - Diverticulosis of colon (without mention of hemorrhage) - Family history of malignant neoplasm of gastrointestinal tract - Head injury 09/30 trip fall - HTN (hypertension) - Hypothyroidism - Internal hemorrhoids without mention of complication - SREEKANTH (obstructive sleep apnea) - Other and unspecified hyperlipidemia - Pneumonia 07/2011 - Snoring - Trigeminal neuralgia PAST SURGICAL HISTORY Procedure Laterality Date - BX OF BREAST; INCISIONAL Left LATE ' Bx of breast, incisional - COLONOSCOP W/ OR W/O [facility] 03/12/08 - COLONOSCOP W/ OR W/O [facility] SPEC 02/05/14 Colonoscopy - COLONOSCOP W/ OR W/O [facility] SPEC 05/20/15 Colonoscopy - COLONOSCOP W/ OR W/O [facility] 01/23/2019 Colonoscopy - PAST SURGICAL HISTORY OF 09/03/2010 CRANIECTOMY EXCISON TUMOR, INFRATENTORIAL OR POST FOSSA, MENIGIOMA - PAST SURGICAL HISTORY OF 05/06/2011 [place]VD fro [place] - REMOVAL OF TONSILS,<12 Y/O A CHILD Tonsillectomy - REMV CATARACT EXTRACAP,INSERT LENS 2012 Cataract Extraction with PC IOL - REMV CATARACT EXTRACAP,INSERT LENS 2012 Cataract Extraction with PC IOL FAMILY HISTORY Problem Relation Age of Onset - Alzheimer's Disease Mother - Heart Mother pacemaker - Stroke Mother - Heart Father VALVE REPLACEMENT,PACE MAKER - Heart Sister - Heart Brother - Heart Brother - Colon Cancer Sister - Breast Cancer Sister - Breast Cancer Daughter Social History Tobacco Use - Smoking status: Never Smoker - Smokeless tobacco: Never Used Substance Use Topics - Alcohol use: No - Drug use: No (Not in a hospital admission) ALLERGIES Allergen Reactions - Amoxicillin Rash - Carbamazepine Rash - Codeine Vomiting - Percocet [Oxycodone* Vomiting - Tegretol [Carbamaze* Vomiting Dizziness, couldn't see straight Skin reaction when went in sun - Tramadol Vomiting - Vicodin [Hydrocodon* Vomiting - Vioxx [Rofecoxib] Rash - Demerol [Meperidine* Intolerance - Neurontin [Gabapent* Intolerance Dizziness, feeling like I couldn't work - Topamax [Topiramate] Intolerance Flushed, red skin COMPLETE REVIEW OF SYSTEMS: General - denies fever, chills Resp - denies SOB, +cough Cardiac - Denies Chest pain, palpitations GI/ - Denies B/B incontinence Skin - no lesions, rash Neuro -see HPI All others negative and/or non-contributary Objective PHYSICAL EXAM: Physical Exam Performed: General - calm, pleasant Resp - even unlabored GI - abdomen soft NT, ND Skin - swelling along R head behind ear [id number] oval shaped, firm, no redness, no drainage. Numbness to R lower outer lip Neuro - A+O x3, PERRL, makes eye contact, speech clear, cranial nerves 2-12 normal and intact, BELL, strength 4+/5 BUE and BLE BP 146/88 Pulse 63 Temp 97.9 Resp 16 Ht 5' 7 (1.70m) Wt 208 lb (94.3kg) SpO2 99% BMI 32.57 kg/(m2). 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 * Medication and Non-Pharmacologic VTE Prophylaxis/Anticoagulants 07/26/191714 vte pharmacologic prophylaxis contraindicated (tx,ar) 07/26/191714 pneumatic compression stockings (tx,ar) 07/26/191714 activity - mobilize patient (tx,ar) VTE Prophylaxis: VTE prophylaxis appropriate SIGNATURE: Tana Tello APRN.CNP PATIENT NAME: Kate Oreilly DATE: July 26, 2019 TIME: 5:21 PM PAGER/CONTACT #: [phone] [facility] HOSPon 07-26-2019 HOSP Patient:Lianet Oreilly MRN: Height:5' 7(1.702 m) Weight:188 lb 15 oz (85.7 kg) Outpatient Medications as of 08/03/19: acetaminophen (TYLENOL) 500 mg tablet topiramate (TOPAMAX) 50 mg tablet topiramate (TOPAMAX) 25 mg tablet levothyroxine (SYNTHROID) 75 mcg tablet atenolol (TENORMIN) 50 mg tablet Admission/Clinic Administered Medications as of 08/03/19: metoclopramide HCl 10 mg injection (REGLAN) potassium chloride ER 20-40 mEq tab(s) (K-DUR, KLOR-CON) potassium chloride iv piggyback 20 mEq/100 mL magnesium sulfate in water 2 g in sterile water 50 ml sodium phosphate 45 mmol in NaCl 0.9% 250 mL calcium gluconate 4 g in NaCl 0.9% 250 mL acetaminophen 650 mg tab(s) (TYLENOL) fentaNYL 50 mcg/mL 25-50 mcg injection (SUBLIMAZE) topiramate 50 mg tab(s) (TOPAMAX) topiramate 75 mg tab(s) (TOPAMAX) levothyroxine 75 mcg tab(s) (SYNTHROID) atenolol 50 mg tab(s) (TENORMIN) docusate sodium 100 mg cap(s) (COLACE) Problem List: Other chronic sinusitis [J32.8] Trigeminal neuralgia [G50.0] FAMILY HISTORY OF GI NEOPLASM [Z80.0] Hyperlipidemia, mixed [E78.2] Hypothyroidism [E03.9] Unspecified sleep apnea [G47.30] Vitamin D deficiency [E55.9] Meningioma (HCC) [D32.9] Essential hypertension, benign [I10] Low back pain [M54.5] Obesity, Class I, BMI 30-34.9 [E66.9] Pseudomeningocele [G96.19] Allergies: Amoxicillin Carbamazepine Codeine Percocet [Oxycodone-Acetaminophen] Tegretol [Carbamazepine Analogues] Tramadol Vicodin [Hydrocodone-Acetaminophen ] Vioxx [Rofecoxib] Demerol [Meperidine Hcl] Neurontin [Gabapentin] Topamax [Topiramate] Date Verified: 08/03/19 Lab Values Lab Value Units Date High Low POTA* 3.7 mEq/L 08/03/2019 5.1 3.5 ROB* 44.8 % 08/03/2019 44.9 34.1 Progress Notes (): [place], RN, RN 07/26/2019 11:15 AM Signed Bed: 41-ED Expected date: Expected time: Means of arrival: Comments: TRIAGE LORA Connelly, PA 07/26/2019 11:17 AM Signed ED INTAKE NOTE Patient Name: Kate Oreilly Service Date: 07/26/19 BRIEF HPI: Kate Oreilly is a 74 year old FEMALE with PMHx of trigeminal neuralgia presenting to the ED c/o swelling x 1 week. Had surgery for trigeminal neuralgia in April. For the last week has had swelling at surgical site with TTP. Has been following up, and was told to come to the ED due to worsening swelling to get a CT scan. -F/C.+pain on swallowing. BRIEF EXAM: Constitutional: Well-developed, well-nourished, NAD. HEENT: Normocephalic, atraumatic. +soft edema posterior to right ear. -erythema. Respiratory: No respiratory distress. Cardiac: RRR. Musculoskeltal: BELL x4. Patient ambulating in triage without difficulty. Neuro: AANDOx3. Skin: Warm and dry. INTAKE WORKUP: Bloodwork: CBC, BMP SIGNATURE: LORA Connelly MD, MD 07/28/2019 10:56 AM Signed ED Provider Note Patient Name: Kate Oreilly SERVICE DATE: 07/26/19 History Patient presents with: Neck Pain: surg in nov for trig neuralgia, sent by doc for CT for swelling in right neck for 1 week, painful to swallow, pain in jaw, -fever 74-year-old female history of hypertension, trigeminal neuralgia status post right-sided surgery for trigeminal neuralgia 2 months ago presents with worsening swelling from the incision site. Patient states over the past 2 weeks she's had swelling in the area that she had the incision in the right occipital region. States over the past 2 days she's also had a sore throat and feels like the swelling is moving into the right side of her neck. Denies any associated shortness of breath, inability to control her secretions. Denies any swelling in her throat, tongue, oral cavity. Denies any fevers, chills, drainage from the surgical site. States that she tried to call Dr. Juárez's office but they're unable to get in contact and were told to come to the ED. Patient is apparently supposed to have a CT scan to differentiate the swelling. Denies any sensory chest pain, shortness of breath, abdominal pain, urinary symptoms, blood in her stool, nausea, vomiting, diarrhea. PAST MEDICAL HISTORY Diagnosis Date - Diverticulosis of colon (without mention of hemorrhage) - Family history of malignant neoplasm of gastrointestinal tract - Head injury 09/30 trip fall - HTN (hypertension) - Hypothyroidism - Internal hemorrhoids without mention of complication - SREEKANTH (obstructive sleep apnea) - Other and unspecified hyperlipidemia - Pneumonia 07/2011 - Snoring - Trigeminal neuralgia PAST SURGICAL HISTORY Procedure Laterality Date - BX OF BREAST; INCISIONAL Left LATE Bx of breast, incisional - COLONOSCOP W/ OR W/O [facility] SPEC 03/12/08 - COLONOSCOP W/ OR W/O [facility] SPE[facility] 02/05/14 Colonoscopy - COLONOSCOP W/ OR W/O [facility] SPE[facility] 05/20/15 Colonoscopy - COLONOSCOP W/ OR W/O [facility] SPEC 01/23/2019 Colonoscopy - PAST SURGICAL HISTORY OF 09/03/2010 CRANIECTOMY EXCISON TUMOR, INFRATENTORIAL OR POST FOSSA, MENIGIOMA - PAST SURGICAL HISTORY OF 05/06/2011 right [place]VD fro [place] - REMOVAL OF TONSILS,<12 Y/O A CHILD Tonsillectomy - REMV CATARACT EXTRACAP,INSERT LENS 2012 Cataract Extraction with PC IOL - REMV CATARACT EXTRACAP,INSERT LENS 2012 Cataract Extraction with PC IOL FAMILY HISTORY Problem Relation Age of Onset - Alzheimer's Disease Mother - Heart Mother pacemaker - Stroke Mother - Heart Father VALVE REPLACEMENT,PACE MAKER - Heart Sister - Heart Brother - Heart Brother - Colon Cancer Sister - Breast Cancer Sister - Breast Cancer Daughter Social History Tobacco Use - Smoking status: Never Smoker - Smokeless tobacco: Never Used Substance and Sexual Activity - Alcohol use: No - Drug use: No - Sexual activity: Not on file ALLERGIES Allergen Reactions - Amoxicillin Rash - Carbamazepine Rash - Codeine Vomiting - Percocet [Oxycodone* Vomiting - Tegretol [Carbamaze* Vomiting Dizziness, couldn't see straight Skin reaction when went in sun - Tramadol Vomiting - Vicodin [Hydrocodon* Vomiting - Vioxx [Rofecoxib] Rash - Demerol [Meperidine* Intolerance - Neurontin [Gabapent* Intolerance Dizziness, feeling like I couldn't work - Topamax [Topiramate] Intolerance Flushed, red skin Review of Systems Constitutional: Positive for activity change. Negative for appetite change, chills, diaphoresis, fatigue and fever. HENT: Positive for ear pain, facial swelling and sore throat. Negative for congestion, dental problem, drooling, ear discharge, hearing loss, mouth sores, nosebleeds, postnasal drip, rhinorrhea, sinus pressure, sinus pain, sneezing, tinnitus, trouble swallowing and voice change. Eyes: Negative for photophobia, redness and visual disturbance. Respiratory: Negative for cough, choking, chest tightness, shortness of breath, wheezing and stridor. Cardiovascular: Negative for chest pain, palpitations and leg swelling. Gastrointestinal: Negative for abdominal pain, blood in stool, diarrhea, nausea and vomiting. Genitourinary: Negative for dysuria, flank pain, frequency and hematuria. Musculoskeletal: Negative for arthralgias, back pain and neck pain. Skin: Positive for wound. Swelling at the surgical site in the right occipital region described as worsening over the past week, denies any drainage, redness, pain to palpation. Neurological: Negative for dizziness, seizures, syncope, facial asymmetry, weakness, light-headedness, numbness and headaches. Physical Exam BP 161/73 Pulse 74 Temp 97.9 Resp 18 Ht 5' 7 (1.70m) Wt 208 lb (94.3kg) SpO2 97% BMI 32.57 kg/(m2). O2 Therapy: Room Air Physical Exam Vitals signs and nursing note reviewed. Constitutional: General: She is not in acute distress. Appearance: Normal appearance. She is well-developed and normal weight. She is not ill-appearing, toxic-appearing or diaphoretic. HENT: Head: Normocephalic and atraumatic. Right Ear: Tympanic membrane, ear canal and external ear normal. There is no impacted cerumen. Left Ear: Tympanic membrane, ear canal and external ear normal. There is no impacted cerumen. Nose: Nose normal. No congestion or rhinorrhea. Mouth/Throat: Mouth: Mucous membranes are dry. Pharynx: Oropharynx is clear. No oropharyngeal exudate or posterior oropharyngeal erythema. Comments: No signs of swelling in the tongue, posterior pharynx, no uvular deviation. No exudates or signs of infection or bleeding. Eyes: Pupils: Pupils are equal, round, and reactive to light. Neck: Musculoskeletal: Normal range of motion. Cardiovascular: Rate and Rhythm: Normal rate and regular rhythm. Pulses: Normal pulses. Pulmonary: Effort: Pulmonary effort is normal. No tachypnea, accessory muscle usage or respiratory distress. Breath sounds: Normal breath sounds. No stridor. No decreased breath sounds, wheezing, rhonchi or rales. Abdominal: General: Bowel sounds are normal. There is no distension. Palpations: Abdomen is soft. Tenderness: There is no abdominal tenderness. There is no guarding or rebound. Musculoskeletal: Right lower leg: No edema. Left lower leg: No edema. Neurological: Mental Status: She is alert and oriented to person, place, and time. She is not disoriented. Cranial Nerves: No cranial nerve deficit. Diagnostic Testing ED Labs Ordered and Reviewed - No data to display Procedures ED Course / Clinical Impression Clinical Impressions as of Jul 27 2235 Encounter for post surgical wound check MDM / Disposition / Plan Kate Oreilly is a 74 year old female who presented to the ED with chief complaint of surgical incision swelling over the past 2 weeks. Initial VS unremarkable, stable throughout her stay in the ED. Patient well appearing, no acute distress, nontoxic-appearing. Please see HPI and PE for pertinent information. Patient has a fluctuant mass at the incision site from her surgery 2 months ago. It is nontender, soft, no crepitus present, no drainage at this time. No signs of acute infection of the fluctuant area on the back of the neck. No signs of respiratory compromise. Plan at this time is to perform basic labs and CT imaging to further differentiate the fluctuant area in the patient's back the neck. CT imaging showed 2.2 x 4.7 x 7.3 cm well marginated fluid collection in the right occipital region most likely representing pseudomeningocele. Neurosurgery team consulted. They recommended ESR, CRP studies. After they saw the patient. They recommended admitting the patient for further management. Patient was admitted to the medical floor under Dr. Juárez, patient remains stable condition during her stay in the ED. SIGNATURE: DO Jose Hairston (Jagdeep) DO Zach Shirley 07/27/19 9784 Attending Note I evaluated the patient and personally participated in the parker components. I agree with the resident's findings and plan with the following revisions and/or additions: Please see my separate attending note. Venkat Duke MD 07/28/19 1056 Previous Version Cecilia Burrell RN, RN 07/26/2019 1:38 PM Signed RN unable to obtain IV access. Second RN to attempt with US machine Cecilia Burrell RN, RN 07/26/2019 2:[address] aware of order Venkat Duke MD, 07/26/2019 3:34 PM Signed ED attending note 74-year-old female presents emergency Department with post surgical complications from a trigeminal decompression surgery that was performed about 2 months ago. About 10 days ago patient had sudden swelling at the site of the surgery. Since that time she's had increasing swelling and pain and now has some difficulty when she swallows. She also notes some right ear pain. On exam the mass behind her ear is proximal weight 7 x 4 cm. It is swollen consistent with a hematoma or seroma. There is no bruit to it. She has some fullness on the right side of her neck but no crepitus. Neurological exam nonfocal. Oropharynx is clear. Plan for CT evaluation and then discussion with surgeon. Venkat Duke MD 07/26/19 1534 Cecilia Burrell RN, RN 07/26/2019 4:49 PM Signed Neurosurg at bedside Tana Tello APRN.CNP 07/26/2019 5:33 PM Attested -- Attestation signed by Milli Juárez at 07/26/2019 5:36 PM Staff Addendum: Agree with above. 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 This may be due to new fluid leakage(one way valve effect) after extensive coughing. Will repeat CTH tomorrow to verify no signs of progressive new onset hydrocephalus. Continue topamax. Have multiple options: conservative management Tap fluid collection and wrap head Lumbar drain with head wrap. Will discuss options with patient. Milli Juárez MD Neurosurgery July 26, 2019 5:36 PM -- HISTORY AND PHYSICAL EXAMINATION NEurosurgery SERVICE DATE: 07/26/2019 SERVICE TIME: 5:21 PM PRIMARY CARE PHYSICIAN: Kenn Beauchamp MD Subjective CHIEF COMPLAINT: Headache, swelling HPI: This is a 74 year old female who presents with swelling behind right ear with ear pain and headache. PMH significant for HTN, hypotension, hypothyroidism,SREEKANTH, HPL, trigeminal neuralgia. Pt has surgery 05/12/[address] Juárez for trigeminal neuralgia and did very well until had illness about one month ago with severe coughing, and sinus congestion that lasted 2-3 weeks. Pt states the swelling behind right ear 10 days ago and has gradually increased in size. Pt c/o R ear pain, jaw pain, numbness to R lower lip. Denies headache, seizures, vision changes, hearing loss, balance issues, falls or injury. Pt states she has been taking her medications as prescribed except Topamax 50mg in am and 75mg q hs. (should be 75mg BID) Pt was seen in Neurosurgery office 07/17/19 by [place]. PAST MEDICAL HISTORY Diagnosis Date - Diverticulosis of colon (without mention of hemorrhage) - Family history of malignant neoplasm of gastrointestinal tract - Head injury 09/30 trip fall - HTN (hypertension) - Hypothyroidism - Internal hemorrhoids without mention of complication - SREEKANTH (obstructive sleep apnea) - Other and unspecified hyperlipidemia - Pneumonia 07/2011 - Snoring - Trigeminal neuralgia PAST SURGICAL HISTORY Procedure Laterality Date - BX OF BREAST; INCISIONAL Left LATE Bx of breast, incisional - COLONOSCOP W/ OR W/O [facility] SPEC 03/12/08 - COLONOSCOP W/ OR W/O [facility] SPEC 02/05/14 Colonoscopy - COLONOSCOP W/ OR W/O [facility] SPEC 05/20/15 Colonoscopy - COLONOSCOP W/ OR W/O [facility] SPEC 01/23/2019 Colonoscopy - PAST SURGICAL HISTORY OF 09/03/2010 CRANIECTOMY EXCISON TUMOR, INFRATENTORIAL OR POST FOSSA, MENIGIOMA - PAST SURGICAL HISTORY OF 05/06/2011 right MVD fro [place] - REMOVAL OF TONSILS,<12 Y/O A CHILD Tonsillectomy - REMV CATARACT EXTRACAP,INSERT LENS 2012 Cataract Extraction with PC IOL - REMV CATARACT EXTRACAP,INSERT LENS 2012 Cataract Extraction with PC IOL FAMILY HISTORY Problem Relation Age of Onset - Alzheimer's Disease Mother - Heart Mother pacemaker - Stroke Mother - Heart Father VALVE REPLACEMENT,PACE MAKER - Heart Sister - Heart Brother - Heart Brother - Colon Cancer Sister - Breast Cancer Sister - Breast Cancer Daughter Social History Tobacco Use - Smoking status: Never Smoker - Smokeless tobacco: Never Used Substance Use Topics - Alcohol use: No - Drug use: No (Not in a hospital admission) ALLERGIES Allergen Reactions - Amoxicillin Rash - Carbamazepine Rash - Codeine Vomiting - Percocet [Oxycodone* Vomiting - Tegretol [Carbamaze* Vomiting Dizziness, couldn't see straight Skin reaction when went in sun - Tramadol Vomiting - Vicodin [Hydrocodon* Vomiting - Vioxx [Rofecoxib] Rash - Demerol [Meperidine* Intolerance - Neurontin [Gabapent* Intolerance Dizziness, feeling like I couldn't work - Topamax [Topiramate] Intolerance Flushed, red skin COMPLETE REVIEW OF SYSTEMS: General - denies fever, chills Resp - denies SOB, +cough Cardiac - Denies Chest pain, palpitations GI/ - Denies B/B incontinence Skin - no lesions, rash Neuro -see HPI All others negative and/or non-contributary Objective PHYSICAL EXAM: Physical Exam Performed: General - calm, pleasant Resp - even unlabored GI - abdomen soft NT, ND Skin - swelling along R head behind ear [id number] oval shaped, firm, no redness, no drainage. Numbness to R lower outer lip Neuro - A+O x3, PERRL, makes eye contact, speech clear, cranial nerves 2-12 normal and intact, BELL, strength 4+/5 BUE and BLE BP 146/88 Pulse 63 Temp 97.9 Resp 16 Ht 5' 7 (1.70m) Wt 208 lb (94.3kg) SpO2 99% BMI 32.57 kg/(m2). 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 * Medication and Non-Pharmacologic VTE Prophylaxis/Anticoagulants 07/26/191714 vte pharmacologic prophylaxis contraindicated (tx,ar) 07/26/191714 pneumatic compression stockings (tx,ar) 07/26/191714 activity - mobilize patient ([place], [place]) VTE Prophylaxis: VTE prophylaxis appropriate SIGNATURE: Tana Tello APRN.CNP PATIENT NAME: Kate Oreilly DATE: July 26, 2019 TIME: 5:21 PM PAGER/CONTACT #: [phone] Leslie Sandoval RN, RN 07/26/2019 5:32 PM Signed Pt aware of meds ordered for her, pt sts she took all of her meds this AM, except second dose of Topamax and pain meds, Tana GERMAIN aware. Leslie Sandoval RN, RN 07/26/2019 5:49 PM Signed Report called to Cher EVANGELISTA, opportunity provided to answer questions. Jose otoole MD 07/27/2019 3:55 PM Signed DEPARTMENT OF HOSPITAL MEDICINE INITIAL CONSULT SERVICE DATE: 07/27/2019 SERVICE TIME: 8:23 AM Primary Care Physician: Kenn Beauchamp MD NIGHT AND WEEKEND COVERAGE: After 7pm, please call cross cover pager #[phone] REASON FOR CONSULT: Medical Co management REQUESTING PHYSICIAN: Dr Juárez Subjective CHIEF COMPLAINT: Right occipital swelling HPI: This is a 74 year old female who presents is admitted to Neurosurgery service for right occipital swelling c/w pseudomeningocele. Briefly this pt has h/o of trigeminal neuralgia. On pt had microvascular decompression of right trigeminal nerve. She was doing fine after surgery when about one week ago she started noticing swelling behind the right ear, which is progressively getting large in size. Associated symptoms are pain with swallowing. Denies fever, nausea and vomiting. In the ED pt has CT head and neck which revealed 2x7x 4 cm fluid collection in the right occipital region overlying the surgical mesh likely pseudomeningocele. Neurosurgery plan is conservative management Vs tapping fluid collection Vs lumbar drain placement. Is the Patient Experiencing Pain: No: 0 on a scale of 0 to 10 PAST MEDICAL HISTORY Diagnosis Date - Diverticulosis of colon (without mention of hemorrhage) - Family history of malignant neoplasm of gastrointestinal tract - Head injury 09/30 trip fall - HTN (hypertension) - Hypothyroidism - Internal hemorrhoids without mention of complication - SREEKANTH (obstructive sleep apnea) - Other and unspecified hyperlipidemia - Pneumonia 07/2011 - Snoring - Trigeminal neuralgia PAST SURGICAL HISTORY Procedure Laterality Date - BX OF BREAST; INCISIONAL Left LATE 'S Bx of breast, incisional - COLONOSCOP W/ OR W/O [facility] SPEC 03/12/08 - COLONOSCOP W/ OR W/O [facility] SPEC 02/05/14 Colonoscopy - COLONOSCOP W/ OR W/O [facility] SPEC 05/20/15 Colonoscopy - COLONOSCOP W/ OR W/O [facility] SPEC 01/23/2019 Colonoscopy - PAST SURGICAL HISTORY OF 09/03/2010 CRANIECTOMY EXCISON TUMOR, INFRATENTORIAL OR POST FOSSA, MENIGIOMA - PAST SURGICAL HISTORY OF 05/06/2011 right [place]VD fro [place] - REMOVAL OF TONSILS,<12 Y/O A CHILD Tonsillectomy - REMV CATARACT EXTRACAP,INSERT LENS 2012 Cataract Extraction with PC IOL - REMV CATARACT EXTRACAP,INSERT LENS 2012 Cataract Extraction with PC IOL FAMILY HISTORY Problem Relation Age of Onset - Alzheimer's Disease Mother - Heart Mother pacemaker - Stroke Mother - Heart Father VALVE REPLACEMENT,PACE MAKER - Heart Sister - Heart Brother - Heart Brother - Colon Cancer Sister - Breast Cancer Sister - Breast Cancer Daughter Social History Tobacco Use - Smoking status: Never Smoker - Smokeless tobacco: Never Used Substance Use Topics - Alcohol use: No - Drug use: No MEDICATIONS: Reviewed topiramate (TOPAMAX) 50 mg tablet, Take 1 tablet by mouth twice daily., Disp: 60 tablet, Rfl: 2 topiramate (TOPAMAX) 25 mg tablet, Take 1 tablet by mouth twice daily. (Patient taking differently: Take 25 mg by mouth once daily. With 50mg at night ), Disp: 60 tablet, Rfl: 2 acetaminophen (TYLENOL) 325 mg tablet, Take 650 mg by mouth every 6 hours as needed. , Disp: , Rfl: , Taking levothyroxine (SYNTHROID) 75 mcg tablet, Take 1 tablet by mouth once daily., Disp: 90 tablet, Rfl: 3, Taking atenolol (TENORMIN) 50 mg tablet, Take 1 tablet by mouth once daily., Disp: 90 tablet, Rfl: 3, Taking benzonatate (TESSALON PERLE) 100 mg capsule, Take 2 capsules by mouth three times daily as needed., Disp: 42 capsule, Rfl: 0, Taking topiramate (TOPAMAX) 25 mg tablet, Take 3 tablets by mouth twice daily., Disp: 180 tablet, Rfl: 0, Taking montelukast (SINGULAIR) 10 mg tablet, Take 1 tablet by mouth daily at bedtime. (Patient not taking: Reported on 06/23/2019 ), Disp: 90 tablet, Rfl: 3, Not Taking Ibuprofen 200 mg cap, Take by mouth as needed. ON HOLD , Disp: , Rfl: , Not Taking Current Facility-Administered Medications Medication Dose Route Frequency - iv contrast (radiology procedure) INTRAVENOUS DIRECTED PRN - topiramate 50 mg tab(s) (TOPAMAX) 50 mg ORAL DAILY (6 AM) - topiramate 75 mg tab(s) (TOPAMAX) 75 mg ORAL DAILY AT 6 PM - acetaminophen 650 mg tab(s) (TYLENOL) 650 mg ORAL q 6 H PRN - montelukast 10 mg tab(s) (SINGULAIR) 10 mg ORAL AT BEDTIME - levothyroxine 75 mcg tab(s) (SYNTHROID) 75 mcg ORAL DAILY - atenolol 50 mg tab(s) (TENORMIN) 50 mg ORAL DAILY - ondansetron 4 mg tab(s) (ZOFRAN) 4 mg ORAL q 6 H PRN Or - ondansetron (PF) 4 mg injection (ZOFRAN) 4 mg INTRAVENOUS q 6 H PRN - docusate sodium 100 mg cap(s) (COLACE) 100 mg ORAL BID . ALLERGIES Allergen Reactions - Amoxicillin Rash - Carbamazepine Rash - Codeine Vomiting - Percocet [Oxycodone* Vomiting - Tegretol [Carbamaze* Vomiting Dizziness, couldn't see straight Skin reaction when went in sun - Tramadol Vomiting - Vicodin [Hydrocodon* Vomiting - Vioxx [Rofecoxib] Rash - Demerol [Meperidine* Intolerance - Neurontin [Gabapent* Intolerance Dizziness, feeling like I couldn't work - Topamax [Topiramate] Intolerance Flushed, red skin REVIEW OF SYSTEMS: ROS: 10 points ROS reviewed, negative except mentioned in HPI Objective PHYSICAL EXAM: BP 118/55 Pulse 65 Temp (Src) 98.1 (Oral) Resp 18 Ht 5' 7 (1.70m) Wt 188 lb 15 oz (85.7kg) SpO2 95% BMI 29.58 kg/(m2). O2 Therapy: Room Air Physical Exam Performed: GENERAL: Alert, no distress, cooperative HEAD/SINUSES: Swelling behing right eart, firm in consistency EYES: PERRLA, EOMI BACK: Back symmetric, Normal curvature, ROM normal, No CVAT. LUNGS: Lungs clear to auscultation, Good diaphragmatic excursion CARDIAC: Normal S1 and S2; no rubs, murmurs, or gallops BREASTS: Exam deferred EXTREMITIES: Extremities normal, no deformities, edema, clubbing or skin discoloration. Good capillary refill., No ulcers NEURO: Grossly normal cognition, motor function, and cranial nerves III-XII Lines, Drains, and Airways Line Peripheral 07/26/19 1337 Right Forearm 20 Gauge less than 1 day DATA: Diagnostic tests reviewed for today's visit: Most recent labs and imaging results. Impression/Recommendations #Right occipital swelling c/w meningocele #Trigeminal Neuralgia #Hypothyroidim #HTN Plan - Continue home dose of Levothyroxine, Atenolol - Continue topiramte at the same dose -Will follow with you Disposition: Home Plan of care discussed with: Patient SIGNATURE: Jose otoole MD PATIENT NAME: Kate Oreilly DATE: July 27, 2019 TIME: 8:23 AM PAGER/CONTACT #: Previous Version KING Bustillo 07/27/2019 12:27 PM Signed CARE MANAGEMENT PROGRESS NOTE SERVICE DATE: July 27, 2019 SERVICE TIME: 5 LOS: 0 days Observation letter given to Pt on 07-27-19, 1145am Met with pt and observation letter given. Copy sent to admitting. 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 Last discharge within 30 days: No Advance Directive: Current Advance Directive: Health Care Power of Mortgage Lender In Chart: Yes Up To Date and Valid: Yes Health LiteracyHow often do you need to have someone help you when you read instructions, pamphlets, or other written material from your doctor or pharmacy? : 1 - Never How confident are you filling out medical forms by yourself?: 1 - Extremely Prior to Admission: Baseline Mental Status: Alert AND Oriented Prior to this illness, has anyone described the patient having any of the following behaviors? Not Applicable Relationship of the information to the patient:: Self Functional Status: Independent Does Patient Currently Receive Any Community Services or Home Care?: None Equipment Prior to Admission: None SOCIAL: Living Arrangements: Home Financial Resources: EmployedPrimary Contact: Extended Emergency Contact Information Primary Emergency Contact: Reynaldo Oreilly Address: [address] Relation: Spouse Secondary Emergency Contact: [employer] Mobile Relation: Daughter Supportive Patient Contact:: Yes Contact Resources: Family Social Needs Food insecurity Worry: Never true Inability: Never true Resources Needed: No Social Needs Financial resource strain: Not hard at all NA Social Needs Transportation needs Medical: No Non-medical: No Caregiver AssessmentCaregiver is ready, willing and able to meet the patient's needs as recommended by the inter-professional team:: No Caregiver needed Does the patient have an acute stroke diagnosis, or has the patient had a stroke during this admission?: No Family Name/Phone: namita [phone] Patient's perception of need for this admission: Neck pain Medication Adherance I am convinced of the importance of my prescription medication: 0 - Agree Completely I worry that my prescription medication will do more harm than good to me : 0 - Diagree Completely I feel financially burdened by my [id number] expenses for my prescription medication:: 0 - Diagree Completely Risk Score: 0 Patient is categorized as: Low risk < 2 Are you interested in bedside delivery of your medications? 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 Pt IND, -DME, +PCP, +script coverage. Pt fills her medications at [facility] in [place]. 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 No current discharge needs. SIGNATURE: KING Bustillo PATIENT NAME: Kate Oreilly DATE: July 27, 2019 TIME: 12:46 PM PAGER/CONTACT #: [phone] LORA Garrido, PA 07/27/2019 3:41 PM Signed Neurosurgery Progress Note SERVICE DATE: 07/27/2019 SUBJECTIVE: Kate just bathed herself and has been ambulating the [place]. She only c/o some pressure to the back of her head on the right. No n/v, no vision changes, no dizziness or imbalance. OBJECTIVE: Vitals: Temp (24hrs), Av.6 ?C (97.9 ?F), Min:36.4 ?C (97.5 ?F), Max:36.9 ?C (98.4 ?F) BP 126/74 Pulse 67 Temp 36.4 ?C (97.5 ?F) (Oral) Resp 18 Ht 170.2 cm (5' 7) Wt 85.7 kg (188 lb 15 oz) LMP (LMP Unknown) SpO2 94% BMI 29.59 kg/m? O2 Therapy: Room Air IANDO: Date 07/26/19 1500 - 07/27/19 0659 07/27/19 0700 - 07/28/19 0659 Shift 5300-6858 6771-2891 24 Hour Total 1173-6034 4658-6440 4729-6366 24 Hour Total INTAKE PO 240 240 PO 240 240 Shift Total 240 240 OUTPUT Urine Urine Not Saved. 3 x 3 x Shift Total Weight (kg) 85.7 85.7 85.7 85.7 85.7 85.7 85.7 MEDICATIONS Current Facility-Administered Medications Medication Dose Route Frequency - topiramate 50 mg tab(s) (TOPAMAX) 50 mg ORAL DAILY (6 AM) - topiramate 75 mg tab(s) (TOPAMAX) 75 mg ORAL DAILY AT 6 PM - acetaminophen 650 mg tab(s) (TYLENOL) 650 mg ORAL q 6 H PRN - montelukast 10 mg tab(s) (SINGULAIR) 10 mg ORAL AT BEDTIME - levothyroxine 75 mcg tab(s) (SYNTHROID) 75 mcg ORAL DAILY - atenolol 50 mg tab(s) (TENORMIN) 50 mg ORAL DAILY - ondansetron 4 mg tab(s) (ZOFRAN) 4 mg ORAL q 6 H PRN Or - ondansetron (PF) 4 mg injection (ZOFRAN) 4 mg INTRAVENOUS q 6 H PRN - docusate sodium 100 mg cap(s) (COLACE) 100 mg ORAL BID Labs: Recent Labs 07/27/19 1435 07/26/19 1336 NA -- 137 K -- 3.9 CHLOR -- 105 CO2 -- 25 BUN -- 13 CREAT -- 0.80 GLUC -- 94 ANION -- 11 CA -- 9.0 WBC -- 5.37 HB -- 13.4 HCT -- 42.7 PLT -- 213 INR 1.06 -- Exam: GENERAL: No distress, Alert, pleasant and in good spirits NEURO: orientedx3; speech clear and fluent; msp intact and equal HEENT: large fluid collection behind ear on right side of head; tense, not tender LUNGS: Unlabored breathing ASSESSMENT AND PLAN: Active Hospital Problems Diagnosis Date Noted - Pseudomeningocele 07/27/2019 74 year old female acute onset pseudomeningocele, s/p MVD 04/2019. - neuro stable - Dr. Juárez to drain fluid today and wrap head SIGNATURE: LORA Garrido PATIENT NAME: Kate Oreilly DATE: July 27, 2019 TIME: 3:36 PM Pager: [phone] Milli Juárez MD 07/27/2019 9:46 PM Signed BEDSIDE PROCEDURE NOTE PROCEDURE DATE: July 27, 2019 PROCEDURE START TIME: 4:45PM PRIMARY PROCEDURALIST: Milli Juárez MD [employer] WORKER(S): LORA Mccoy INFORMED CONSENT: Informed Consent obtained and on the chart UNIVERSAL PROTOCOL / SAFETY CHECKLIST Sign in Communication: Completed Time Out: Team Confirms the Correct Patient, Correct Procedure, Correct Site and Site Marking, Correct Position (if applicable), Prep and Dry Time (if applicable). Time: 4:45PM Affirmation of Time Out: YES Sign Out Discussion: Completed PROCEDURE: FINE NEEDLE ASPIRATION Aspiration of: right pseudomeningocele posterior auricular Indication: Definitive diagnosis of pseudomeningocele Analgesia/Sedation: Fentanyl 50mcg Procedure: In an upright position the skin was cleansed with betadine and sterilely draped. A #25 angiocatheter needle attached to a 20 cc syringe was inserted into the collection, and aspiration was performed resulting in 30cc of serosanguinous fluid. A head wrap was then applied. Patient tolerated procedure well Complications: None Specimens: Yes, fluid for CSF studies and cultures Estimated Blood Loss: None SIGNATURE: Milli Juárez MD PATIENT NAME: Kate Oreilly DATE: July 27, 2019 TIME: 9:44 PM PAGER/CONTACT #: [phone] Tana Tello APRN.CNP 07/28/2019 1:44 PM Addendum PROGRESS NOTE NEUROSURGERY SERVICE DATE: 07/28/2019 SERVICE TIME: 1050 Subjective INTERVAL HPI Sitting up in bed. Swelling to post R ear same as day of admission. No new symptoms. Current Facility-Administered Medications Medication Dose Route Frequency - topiramate 50 mg tab(s) (TOPAMAX) 50 mg ORAL DAILY (6 AM) - topiramate 75 mg tab(s) (TOPAMAX) 75 mg ORAL DAILY AT 6 PM - acetaminophen 650 mg tab(s) (TYLENOL) 650 mg ORAL q 6 H PRN - montelukast 10 mg tab(s) (SINGULAIR) 10 mg ORAL AT BEDTIME - levothyroxine 75 mcg tab(s) (SYNTHROID) 75 mcg ORAL DAILY - atenolol 50 mg tab(s) (TENORMIN) 50 mg ORAL DAILY - ondansetron 4 mg tab(s) (ZOFRAN) 4 mg ORAL q 6 H PRN Or - ondansetron (PF) 4 mg injection (ZOFRAN) 4 mg INTRAVENOUS q 6 H PRN - docusate sodium 100 mg cap(s) (COLACE) 100 mg ORAL BID Objective Physical Exam Performed: General - calm, pleasant Resp - even unlabored GI - abdomen soft NT, ND Skin - Incision - intact, no redness or drainage, Swelling 4ihf1rd right side behind R ear Neuro - A+O x3, PERRL, makes eye contact, speech clear, , BELL, strength 4/5 BUE and BLE VITAL SIGNS 24 HOUR REVIEW: Patient Vitals for the past 24 hrs: BP Temp Temp src Pulse Resp SpO2 07/28/19 0729 132/80 36.8 ?C (98.2 ?F) Oral 72 18 98 % 07/28/19 0600 124/64 36.7 ?C (98.1 ?F) Temporal 68 18 98 % 07/27/193 126/61 36.5 ?C (97.7 ?F) Temporal 69 18 98 % Assessment/Plan Active Problems: Pseudomeningocele POA: Yes Assessment AND Plan: 74 yo with pseudomeningocele Plan for Lumbar drain today by IR Will be transferred to ICU for drain mgmt NPO until drain placed, then diet after No blood thinners Medicine following Drain - clamped at all times, except while draining OK OOB with drain clamped D/w Dr Juárez ADDENDUM - Pt to be transferred to ICU. Dr Juárez will place lumbar drain later today at the bedside. Resolved Problems: * No resolved hospital problems. * Medication and Non-Pharmacologic VTE Prophylaxis/Anticoagulants 07/26/191714 vte pharmacologic prophylaxis contraindicated (tx,ar) 07/26/191714 pneumatic compression stockings (tx,ar) 07/26/191714 activity - mobilize patient (tx,ar) VTE Prophylaxis: VTE prophylaxis appropriate SIGNATURE: Tana Tello APRN.CNP PATIENT NAME: Kate Oreilly DATE: July 28, 2019 TIME: 11:47 AM PAGER/CONTACT #: [phone] Previous Version Chloe Caldwell, RN, RN 07/28/2019 12:59 PM Signed Nursing Progress Note Patient Name: Kate Oreilly Patient Location: [id number] Spoke to IR who states who is in IR today does not do lumbar therefore, lumbar drain cannot be done today. Tana GERMAIN with neurosurgery notified, order to keep patient NPO and states Dr. Juárez will have to do after office today. Will keep updated This note was completed by: CORTEZ Vazquez MD 07/28/2019 4:51 PM Signed DEPARTMENT OF HOSPITAL MEDICINE PROGRESS NOTE SERVICE DATE: 07/28/2019 SERVICE TIME: 4:47 PM Hospital Medicine/Primary Attending: Jose otoole MD NIGHT AND WEEKEND COVERAGE: After 7pm, please call cross cover pager #[phone] Subjective INTERVAL HPI: Pt had aspiration of occipital swelling, but as per pt swelling has been about the same. Plan is for IR guided lumbar drain placement today. MEDICATIONS: Reviewed Objective PHYSICAL EXAM: BP 126/59 Pulse 61 Temp (Src) 97.3 (Oral) Resp 16 Ht 5' 7 (1.70m) Wt 188 lb 15 oz (85.7kg) SpO2 100% BMI 29.58 kg/(m2). O2 Therapy: Room Air Physical Exam Performed GENERAL: Alert, no distress, cooperative SKIN: swelling present behing the right ear, about the same size LUNGS: Lungs clear to auscultation, Good diaphragmatic excursion CARDIAC: Normal S1 and S2; no rubs, murmurs, or gallops ABDOMEN: Abdomen soft, non-tender, BS normal, No masses or organomegaly NEURO: Gait normal. Reflexes normal and symmetric. Sensation grossly intact, Cranial nerves II-XII intact Lines, Drains, and Airways Line Peripheral 07/26/19 1337 Right Forearm 20 Gauge 2 days DATA: Diagnostic tests reviewed for today's visit: Most recent labs and imaging results. Assessment/Plan #Right occipital swelling c/w meningocele #Trigeminal Neuralgia #Hypothyroidim #HTN ? Plan - Continue home dose of Levothyroxine, Atenolol - Continue topiramte at the same dose -Will follow with you - Management of meningocele per Neurosurgery * No resolved hospital problems. * Medication and Non-Pharmacologic VTE Prophylaxis/Anticoagulants 07/26/191714 vte pharmacologic prophylaxis contraindicated (tx,ar) 07/26/191714 pneumatic compression stockings (tx,ar) 07/26/191714 activity - mobilize patient (tx,ar) Disposition: Home Plan of care discussed with: Patient SIGNATURE: Jose otoole MD PATIENT NAME: Kate Oreilly DATE: July 28, 2019 TIME: 4:47 PM PAGER/CONTACT #: [phone] Chloe Caldwell RN, RN 07/28/2019 6:53 PM Signed Nursing Progress Note Patient Name: Kate Oreilly Patient Location: [id number] [facility] Will let us know when bed ready, patient aware This note was completed by: CORTEZ Vazquez MD 07/28/2019 9:28 PM Signed BEDSIDE PROCEDURE NOTE PROCEDURE DATE: July 28, 2019 PROCEDURE START TIME: 8:45PM PRIMARY PROCEDURALIST: Milli Juárez MD [employer] WORKER(S): INFORMED CONSENT: Informed Consent obtained and on the chart UNIVERSAL PROTOCOL / SAFETY CHECKLIST Sign in Communication: Completed Time Out: Team Confirms the Correct Patient, Correct Procedure, Correct Site and Site Marking, Correct Position (if applicable), Prep and Dry Time (if applicable). Time: 8:45PM Affirmation of Time Out: YES Sign Out Discussion: Completed PROCEDURE: The lumbar region was prepped and draped in usual sterile fashion. The area was infiltrated with 1% lidocaine. A 14 g touy needle used to access intrathecal space at approx L4/5. Brisk CSF flow noted, clear. The catheter advanced to 30cm at the skin and secured to patient's skin using 3-0 Nylon. Pt tolerated procedure well, no complications. Plan to drain 10cc/hr. SIGNATURE: Milli Juárez MD PATIENT NAME: Kate Oreilly DATE: July 28, 2019 TIME: 9:22 PM PAGER/CONTACT #: [phone] Previous Version Ro Alvarez PA-C 07/29/2019 6:42 AM Written Patient is a 74 year old female with past medical history significant for trigeminal neuralgia s/p microvascular decompression of R trigeminal nerve 04/2019, and pseudomeningocele. Post-operatively after nerve decompression, she started noticing swelling behind her left ear. This continued to swell and progress. She started to develop difficulty swallowing. In ED, CT head and neck demonstrating [id number] fluid collection in R occipital region overlying surgical mesh, likely pseudomeningocele. She was admitted and neurosurgery monitoring on the RNF. Given continued expansion and progression of fluid buildup. Dr. Juárez discussed plan for lumbar drain. Patient transferred to NSICU for lumbar drain placement and continued neuro monitoring. Kylah Haider APRN.VALUE STREAM MANAGER 07/29/2019 8:59 AM Signed Neurosurgery Progress Note SERVICE DATE: 07/29/2019 SUBJECTIVE: Pt sitting up in bed. No c/o except feeling stiff from lying in bed all night. Lumbar drain placed last night and working. OBJECTIVE: Vitals: Temp (24hrs), Av.6 ?C (97.8 ?F), Min:36.3 ?C (97.3 ?F), Max:36.8 ?C (98.2 ?F) BP 125/61 Pulse 67 Temp 36.8 ?C (98.2 ?F) (Temporal) Resp 18 Ht 170.2 cm (5' 7) Wt 85.7 kg (188 lb 15 oz) LMP (LMP Unknown) SpO2 96% BMI 29.59 kg/m? O2 Therapy: Room Air IANDO: Date 07/28/19699 - 07/29/19 0659 07/29/19699 - 07/30/19 0659 Shift 8032-0643 7444-1430 0321-5136 24 Hour Total 6136-7759 3731-5354 9739-7351 24 Hour Total INTAKE PO 150 150 PO 150 150 Shift Total 150 150 OUTPUT Urine Urine Not Saved. 1 x 1 x 2 x Tubes 20 80 100 10 10 Drain/Tube Output (Drain/Tube 07/28/19 2130 Lumbar Midline Back) 20 80 100 10 10 Shift Total 20 80 100 10 10 Weight (kg) 85.7 85.7 85.7 85.7 85.7 85.7 85.7 85.7 MEDICATIONS Current Facility-Administered Medications Medication Dose Route Frequency - topiramate 50 mg tab(s) (TOPAMAX) 50 mg ORAL DAILY (6 AM) - topiramate 75 mg tab(s) (TOPAMAX) 75 mg ORAL DAILY AT 6 PM - acetaminophen 650 mg tab(s) (TYLENOL) 650 mg ORAL q 6 H PRN - montelukast 10 mg tab(s) (SINGULAIR) 10 mg ORAL AT BEDTIME - levothyroxine 75 mcg tab(s) (SYNTHROID) 75 mcg ORAL DAILY - atenolol 50 mg tab(s) (TENORMIN) 50 mg ORAL DAILY - ondansetron 4 mg tab(s) (ZOFRAN) 4 mg ORAL q 6 H PRN Or - ondansetron (PF) 4 mg injection (ZOFRAN) 4 mg INTRAVENOUS q 6 H PRN - docusate sodium 100 mg cap(s) (COLACE) 100 mg ORAL BID Labs: Recent Labs 07/29/19 0520 07/27/19 1435 07/26/19 1336 NA 138 -- 137 K 3.9 -- 3.9 CHLOR 108* -- 105 CO2 25 -- 25 BUN 14 -- 13 CREAT 0.86 -- 0.80 GLUC 86 -- 94 ANION 9 -- 11 CA 8.6 -- 9.0 MG 2.0 -- -- P 4.1 -- -- WBC 5.99 -- 5.37 HB 13.9 -- 13.4 HCT 44.2 -- 42.7 PLT 209 -- 213 INR -- 1.06 -- Exam: GENERAL: No distress, Alert NEURO: AANDOx3, NAD, CN II-XII intact, PERRL/EOMI, MAEx4,equally, follows commands, speech clear, sensation intact HEENT: normocephalic, atraumatic LUNGS: Unlabored breathing CARDIAC: Regular rate and rhythm as above ABDOMEN: Soft, non-tender, non-distended EXTREMITIES: BELL, No deformities, No edema SKIN: Lumbar drain intact/draining 10cc/hr; Fluid collection behind right ear still present--soft ASSESSMENT AND PLAN: Active Hospital Problems Diagnosis Date Noted - Pseudomeningocele 07/27/2019 74 yo with pseudomeningocele ? Neuro stable Cont Lumbar drain at 10cc/hr No blood thinners Cont ICU Drain - clamped at all times, except while draining OK OOB with drain clamped ? SIGNATURE: Kylah Haider APRN.[place] PATIENT NAME: Kate Oreilly DATE: July 29, 2019 TIME: 8:55 AM Junie Steele MD 07/29/2019 12:46 PM Addendum NEURO ICU - PROGRESS NOTE SERVICE DATE: 07/29/2019 HPI: Patient is a 74 year old female with past medical history significant for trigeminal neuralgia s/p microvascular decompression of R trigeminal nerve 04/2019, and pseudomeningocele. Post-operatively after nerve decompression, she started noticing swelling behind her left ear. This continued to swell and progress. She started to develop difficulty swallowing. In ED, CT head and neck demonstrating [id number] fluid collection in R occipital region overlying surgical mesh, likely pseudomeningocele. She was admitted and neurosurgery monitoring on the RNF. Given continued expansion and progression of fluid buildup. Dr. Juárez discussed plan for lumbar drain. Patient transferred to NSICU for lumbar drain placement and continued neuro monitoring. Objective DETAILED REVIEW VITAL SIGNS (last 24hrs min/max): Temp Av.6 ?C (97.8 ?F) Min: 36.3 ?C (97.3 ?F) Max: 36.8 ?C (98.2 ?F) Pulse Av.4 Min: 60 Max: 72 Cuff BP Min: 103/49 Max: 134/62 Resp Av.8 Min: 11 Max: 21 SpO2 Av.9 % Min: 94 % Max: 100 % No data recorded No data recordedNo data recordedNo data recordedNo data recorded Pain Level: 7 INTAKE/OUTPUT: Intake/Output Summary (Last 24 hours) at 07/29/2019 1240 Last data filed at 07/29/2019 1100 Gross per 24 hour Intake 150 ml Output 150 ml Net 0 ml CSF: 100 ml MIVF: KVO PO/TF: PO FREE WATER: N/A BM: Has the patient had a BM in the last 24 hours? Yes PHYSICAL EXAM AND PERTINENT DATA Neuro: awake ,alert, follows command. BELL, motor 5/5 CV: S1S2 present, no M/G Pulm: AEBE, clear Mechanical Ventilation: No. Supplemental Oxygen: No GI/: Soft, ND, postive bowel sound Skin/Extremities: Edema- No Peripheral pulses- Present all extremities Wounds/Drsgs- No Breakdown- No Current Facility-Administered Medications Medication Dose Route Frequency - topiramate 50 mg tab(s) (TOPAMAX) 50 mg ORAL DAILY (6 AM) - topiramate 75 mg tab(s) (TOPAMAX) 75 mg ORAL DAILY AT 6 PM - acetaminophen 650 mg tab(s) (TYLENOL) 650 mg ORAL q 6 H PRN - montelukast 10 mg tab(s) (SINGULAIR) 10 mg ORAL AT BEDTIME - levothyroxine 75 mcg tab(s) (SYNTHROID) 75 mcg ORAL DAILY - atenolol 50 mg tab(s) (TENORMIN) 50 mg ORAL DAILY - ondansetron 4 mg tab(s) (ZOFRAN) 4 mg ORAL q 6 H PRN Or - ondansetron (PF) 4 mg injection (ZOFRAN) 4 mg INTRAVENOUS q 6 H PRN - docusate sodium 100 mg cap(s) (COLACE) 100 mg ORAL BID LABS: CBC, Coags, BMP, Mg, Phos Recent Labs 07/29/19 0520 07/27/19 1435 07/26/19 1336 WBC 5.99 -- 5.37 HB 13.9 -- 13.4 HCT 44.2 -- 42.7 PLT 209 -- 213 INR -- 1.06 -- NA 138 -- 137 K 3.9 -- 3.9 CHLOR 108* -- 105 CO2 25 -- 25 BUN 14 -- 13 CREAT 0.86 -- 0.80 GLUC 86 -- 94 CA 8.6 -- 9.0 MG 2.0 -- -- P 4.1 -- -- CSF AND Dilantin Recent Labs 07/27/19 1700 CWBC 163* CRBC 1,994 CSFPROT 454* CSFGLUC 5* No new labs DATA: Diagnostic tests reviewed for today's visit: Most recent labs and imaging results. Assessment/Plan ACTIVE PROBLEM LIST Other Chronic Sinusitis Trigeminal Neuralgia FAMILY HISTORY OF GI NEOPLASM Hyperlipidemia, Mixed Hypothyroidism Unspecified Sleep Apnea Vitamin D deficiency Meningioma (Hcc) Essential Hypertension, Benign Low Back Pain Obesity, Class I, Bmi 30-34.9 Pseudomeningocele Close monitoring lumbar drain in place Periodic CSF Neuro check Progressive mobility SCD chemoprophylaxis 48 hrs post Drain placement Topamax Synthroid Atenolol for Management of HTN Medication and Non-Pharmacologic VTE Prophylaxis/Anticoagulants 07/26/191714 vte pharmacologic prophylaxis contraindicated ([place], [place]) 07/26/191714 pneumatic compression stockings ([place], [place]) 07/26/191714 activity - mobilize patient ([place], [place]) VTE Prophylaxis: Contraindicated Lumbar drai in place - plan to start chemoprophylaxis 48 hrs post op ICU Checklist Last Documented/Reviewed time: 07/29/2019 6:42 AM -- VTE Prophylaxis: [facility] STAFF PHYSICIAN NOTE OF PERSONAL INVOLVEMENT IN CARE Patient/Family Updated: Patient, Kate Oreilly, updated regarding the goals of care, medical plan for the day, library consultant recommendations, medical disposition and current medical condition/prognosis as and if clinically indicated. All questions and concerns were answered and addressed at this juncture. This patient has a high probability of sudden, clinically significant deterioration, which requires the highest level of physician preparedness to intervene urgently. I managed/supervised life or organ supporting interventions that required frequent physician assessment. I devoted my full attention to the direct care of this patient for the amount of time indicated below. Time I spent with family or surrogate(s) is included only if the patient was incapable of providing the necessary information or participating in medical decision making. Time devoted to teaching and to any procedures I billed separately is not included. Critical Care Documentation: The patient has the following organ/system impairment(s): as above Time spent providing critical care services: 15 minutes. SIGNATURE: Junie Steele MD PATIENT NAME: Kate Oreilly DATE: July 29, 2019 TIME: 12:40 PM PAGER/CONTACT #: [phone] Previous Version Kylah Haider APRN.VALUE STREAM MANAGER 07/30/2019 9:00 AM Signed Neurosurgery Progress Note SERVICE DATE: 07/30/2019 SUBJECTIVE: No issues overnight. Sitting up in bed with c/o mild RÍOS. Lumbar drain intact/working--draining 10cc/hour without difficulty. Area of swelling behind ear appears smaller in size OBJECTIVE: Vitals: Temp (24hrs), Av.5 ?C (97.7 ?F), Min:36.3 ?C (97.3 ?F), Max:36.6 ?C (97.9 ?F) BP 124/108 Pulse 68 Temp 36.5 ?C (97.7 ?F) Resp 19 Ht 170.2 cm (5' 7) Wt 85.7 kg (188 lb 15 oz) LMP (LMP Unknown) SpO2 98% BMI 29.59 kg/m? O2 Therapy: Room Air IANDO: Date 07/29/19 07 - 07/30/19 0659 07/30/19 07 - 07/31/19 0659 Shift 7578-8858 9241-9326 6839-7906 24 Hour Total 0302-4149 5333-4892 5865-0952 24 Hour Total INTAKE Shift Total OUTPUT Urine Urine Not Saved. 2 x 1 x 3 x Tubes 80 80 80 240 20 20 Drain/Tube Output (Drain/Tube 07/28/19 2130 Lumbar Midline Back) 80 80 80 240 20 20 # of BMs Number of BMs 1 x 1 x Shift Total 80 80 80 240 20 20 Weight (kg) 85.7 85.7 85.7 85.7 85.7 85.7 85.7 85.7 MEDICATIONS Current Facility-Administered Medications Medication Dose Route Frequency - potassium chloride ER 20-40 mEq tab(s) (K-DUR, KLOR-CON) 20-40 mEq ORAL/FEEDING TUBE PRN Or - potassium chloride iv piggyback 20 mEq/100 mL 20 mEq INTRAVENOUS PRN - magnesium sulfate in water 2 g in sterile water 50 ml 2 g INTRAVENOUS PRN - sodium phosphate 45 mmol in NaCl 0.9% 250 mL 45 mmol INTRAVENOUS PRN - calcium gluconate 4 g in NaCl 0.9% 250 mL 4 g INTRAVENOUS PRN - topiramate 50 mg tab(s) (TOPAMAX) 50 mg ORAL DAILY (6 AM) - topiramate 75 mg tab(s) (TOPAMAX) 75 mg ORAL DAILY AT 6 PM - acetaminophen 650 mg tab(s) (TYLENOL) 650 mg ORAL q 6 H PRN - montelukast 10 mg tab(s) (SINGULAIR) 10 mg ORAL AT BEDTIME - levothyroxine 75 mcg tab(s) (SYNTHROID) 75 mcg ORAL DAILY - atenolol 50 mg tab(s) (TENORMIN) 50 mg ORAL DAILY - ondansetron 4 mg tab(s) (ZOFRAN) 4 mg ORAL q 6 H PRN Or - ondansetron (PF) 4 mg injection (ZOFRAN) 4 mg INTRAVENOUS q 6 H PRN - docusate sodium 100 mg cap(s) (COLACE) 100 mg ORAL BID Labs: Recent Labs 07/29/19 0520 07/27/19 1435 NA 138 -- K 3.9 -- CHLOR 108* -- CO2 25 -- BUN 14 -- CREAT 0.86 -- GLUC 86 -- ANION 9 -- CA 8.6 -- MG 2.0 -- P 4.1 -- WBC 5.99 -- HB 13.9 -- HCT 44.2 -- PLT 209 -- INR -- 1.06 Exam: GENERAL: No distress, Alert NEURO: AANDOx3, NAD, CN II-XII intact, PERRL/EOMI, MAEx4,equally, follows commands, speech clear, sensation intact HEENT: normocephalic, atraumatic LUNGS: Unlabored breathing CARDIAC: Regular rate and rhythm as above ABDOMEN: Soft, non-tender, non-distended EXTREMITIES: BELL, No deformities, No edema SKIN: Lumbar drain intact/draining 10cc/hr; Fluid collection behind right ear still present--soft--smaller then yesterday ? ASSESSMENT AND PLAN: Active Hospital Problems Diagnosis Date Noted - Pseudomeningocele 07/27/2019 74 yo with pseudomeningocele ? Neuro stable Diet as [place] Pain Control--cont current meds Cont Lumbar drain at 10cc/hr No blood thinners Cont ICU Drain ?- clamped at all times, except while draining OK OOB with drain clamped SIGNATURE: Kylah Haider APRN.[place] PATIENT NAME: Kate Oreilly DATE: July 30, 2019 TIME: 8:57 AM Junie Steele MD 07/30/2019 12:57 PM Signed NEURO ICU - PROGRESS NOTE SERVICE DATE: 07/30/2019 Patient is a 74 year old female with past medical history significant for trigeminal neuralgia s/p microvascular decompression of R trigeminal nerve 04/2019, and pseudomeningocele. Post-operatively after nerve decompression, she started noticing swelling behind her left ear. This continued to swell and progress. She started to develop difficulty swallowing. In ED, CT head and neck demonstrating [id number] fluid collection in R occipital region overlying surgical mesh, likely pseudomeningocele. She was admitted and neurosurgery monitoring on the RNF. Given continued expansion and progression of fluid buildup. Dr. Juárez discussed plan for lumbar drain. Patient transferred to NSICU for lumbar drain placement and continued neuro monitoring. Objective DETAILED REVIEW VITAL SIGNS (last 24hrs min/max): Temp Av.5 ?C (97.7 ?F) Min: 36.3 ?C (97.3 ?F) Max: 36.6 ?C (97.9 ?F) Pulse Av.8 Min: 58 Max: 83 Cuff BP Min: 98/82 Max: 160/78 Resp Av.5 Min: 14 Max: 23 SpO2 Av.5 % Min: 94 % Max: 98 % No data recorded No data recordedNo data recordedNo data recordedNo data recorded Pain Level: 3 INTAKE/OUTPUT: Intake/Output Summary (Last 24 hours) at 07/30/2019 1251 Last data filed at 07/30/2019 1201 Gross per 24 hour Intake 360 ml Output 240 ml Net 120 ml CSF: 240 ml MIVF: KVO PO/TF: PO FREE WATER: N/A BM: Has the patient had a BM in the last 24 hours? Yes PHYSICAL EXAM AND PERTINENT DATA Neuro: AAO-3, BELL, motor 4/5 in UE and LE CV: S1S2 present, No M/G Pulm: AEBE< clear Mechanical Ventilation: No. Supplemental Oxygen: No GI/: soft, ND, postive bowel sound Skin/Extremities: Edema- No Peripheral pulses- Present all extremities Wounds/Drsgs- Yes Breakdown- No Current Facility-Administered Medications Medication Dose Route Frequency - potassium chloride ER 20-40 mEq tab(s) (K-DUR, KLOR-CON) 20-40 mEq ORAL/FEEDING TUBE PRN Or - potassium chloride iv piggyback 20 mEq/100 mL 20 mEq INTRAVENOUS PRN - magnesium sulfate in water 2 g in sterile water 50 ml 2 g INTRAVENOUS PRN - sodium phosphate 45 mmol in NaCl 0.9% 250 mL 45 mmol INTRAVENOUS PRN - calcium gluconate 4 g in NaCl 0.9% 250 mL 4 g INTRAVENOUS PRN - polyethylene glycol 3350 17 g packet (MIRALAX, GLYCOLAX) 17 g ORAL/FEEDING TUBE DAILY - acetaminophen 650 mg tab(s) (TYLENOL) 650 mg ORAL q 4 H PRN - topiramate 50 mg tab(s) (TOPAMAX) 50 mg ORAL DAILY (6 AM) - topiramate 75 mg tab(s) (TOPAMAX) 75 mg ORAL DAILY AT 6 PM - montelukast 10 mg tab(s) (SINGULAIR) 10 mg ORAL AT BEDTIME - levothyroxine 75 mcg tab(s) (SYNTHROID) 75 mcg ORAL DAILY - atenolol 50 mg tab(s) (TENORMIN) 50 mg ORAL DAILY - ondansetron 4 mg tab(s) (ZOFRAN) 4 mg ORAL q 6 H PRN Or - ondansetron (PF) 4 mg injection (ZOFRAN) 4 mg INTRAVENOUS q 6 H PRN - docusate sodium 100 mg cap(s) (COLACE) 100 mg ORAL BID LABS: CBC, Coags, BMP, Mg, Phos Recent Labs 07/30/19 0930 07/29/19 0520 07/27/19 1435 WBC 5.25 5.99 -- HB 14.2 13.9 -- HCT 44.5 44.2 -- PLT 202 209 -- INR -- -- 1.06 NA 136 138 -- K 3.7 3.9 -- CHLOR 106 108* -- CO2 22 25 -- BUN 15 14 -- CREAT 0.79 0.86 -- GLUC 168* 86 -- CA 8.5 8.6 -- MG 1.9 2.0 -- P 3.4 4.1 -- CSF AND Dilantin Recent Labs 07/27/19 1700 CWBC 163* CRBC 1,994 CSFPROT 454* CSFGLUC 5* Liver Function, Amylase, AND Lipase DATA: Diagnostic tests reviewed for today's visit: Most recent labs and imaging results. 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 Pt is asymptomatic and afebrile. Less likely to be infectious Plan to repeat CSF supportive care CSF drainage per protocol / instrution Improving pseudo meningocele DVT prophylaxis- Hold chemoprophylaxis Due to elevated Bleeding risk Diet bowel regimen Medication and Non-Pharmacologic VTE Prophylaxis/Anticoagulants 07/26/191714 vte pharmacologic prophylaxis contraindicated (tx,ar) 07/26/191714 pneumatic compression stockings (tx,ar) 07/26/191714 activity - mobilize patient ([place], [place]) VTE Prophylaxis: VTE prophylaxis appropriate ICU Checklist Last Documented/Reviewed time: 07/30/2019 12:57 PM -- ICU Delirium Status: CAM Positive - new, will place orders Restraint Status: None ICU Mobility-Pt Has Been Out of Bed: Yes Line Status: None Ventilator: None Gregorio Status: None GI/Stress Ulcer Prophylaxis: None - not required Nutrition is at Goal: Yes VTE Prophylaxis: Chemoprophylaxis: No chemoprophylaxis No Chemoprophylaxis Reason: Bleeding risk Pressure Injury Status: None ICU Plan Reviewed with RN: Yes ICU Family Update in Last 24 Hours: Patient updated ICU Disposition- Is Patient Clinically Ready to Transfer to [facility] or SDU?: No Discharge Planning: Home [facility] STAFF PHYSICIAN NOTE OF PERSONAL INVOLVEMENT IN CARE Patient/Family Updated: Patient, Kate Oreilly, updated regarding the goals of care, medical plan for the day, library consultant recommendations, medical disposition and current medical condition/prognosis as and if clinically indicated. All questions and concerns were answered and addressed at this juncture. This patient has a high probability of sudden, clinically significant deterioration, which requires the highest level of physician preparedness to intervene urgently. I managed/supervised life or organ supporting interventions that required frequent physician assessment. I devoted my full attention to the direct care of this patient for the amount of time indicated below. Time I spent with family or surrogate(s) is included only if the patient was incapable of providing the necessary information or participating in medical decision making. Time devoted to teaching and to any procedures I billed separately is not included. Critical Care Documentation: The patient has the following organ/system impairment(s): As above Time spent providing critical care services: 22 minutes. SIGNATURE: Junie Steele MD PATIENT NAME: Kate Oreilly DATE: July 30, 2019 TIME: 12:51 PM PAGER/CONTACT #: [phone] Milli Juárez MD 07/31/2019 6:11 PM Addendum Neurosurgery Progress Note SERVICE DATE: 07/31/2019 SUBJECTIVE: Just drained - c/o h/a, nausea and bilateral shoulder pain for 15min post drainage every hr. States symptoms worse with sitting up. Gets up to BSC. Voices frustration. OBJECTIVE: Vitals: Temp (24hrs), Av.2 ?C (97.2 ?F), Min:36 ?C (96.8 ?F), Max:36.6 ?C (97.9 ?F) BP 126/54 Pulse 77 Temp 36.2 ?C (97.2 ?F) Resp 19 Ht 170.2 cm (5' 7) Wt 85.7 kg (188 lb 15 oz) LMP (LMP Unknown) SpO2 99% BMI 29.59 kg/m? O2 Therapy: Room Air IANDO: Date 07/30/19699 - 07/31/1965807/31/19699 - 02/11/20 0659 Shift 0404-0175 7762-7995 8264-0127 24 Hour Total 9654-2780 9914-2930 5836-5177 24 Hour Total INTAKE PO 720 786 457 9463 PO 720 686 571 6000 Shift Total 720 744 394 0334 OUTPUT Urine Urine Not Saved. 2 x 2 x Tubes 80 80 80 240 20 20 Drain/Tube Output (Drain/Tube 07/28/19 2130 Lumbar Midline Back) 80 80 80 240 20 20 # of BMs Number of BMs 1 x 1 x Shift Total 80 80 80 240 20 20 Weight (kg) 85.7 85.7 85.7 85.7 85.7 85.7 85.7 85.7 MEDICATIONS Current Facility-Administered Medications Medication Dose Route Frequency - potassium chloride ER 20-40 mEq tab(s) (K-DUR, KLOR-CON) 20-40 mEq ORAL/FEEDING TUBE PRN Or - potassium chloride iv piggyback 20 mEq/100 mL 20 mEq INTRAVENOUS PRN - magnesium sulfate in water 2 g in sterile water 50 ml 2 g INTRAVENOUS PRN - sodium phosphate 45 mmol in NaCl 0.9% 250 mL 45 mmol INTRAVENOUS PRN - calcium gluconate 4 g in NaCl 0.9% 250 mL 4 g INTRAVENOUS PRN - polyethylene glycol 3350 17 g packet (MIRALAX, GLYCOLAX) 17 g ORAL/FEEDING TUBE DAILY - acetaminophen 650 mg tab(s) (TYLENOL) 650 mg ORAL q 4 H PRN - fentaNYL 50 mcg/mL 25-50 mcg injection (SUBLIMAZE) 25-50 mcg INTRAVENOUS q 1 H PRN - topiramate 50 mg tab(s) (TOPAMAX) 50 mg ORAL DAILY (6 AM) - topiramate 75 mg tab(s) (TOPAMAX) 75 mg ORAL DAILY AT 6 PM - montelukast 10 mg tab(s) (SINGULAIR) 10 mg ORAL AT BEDTIME - levothyroxine 75 mcg tab(s) (SYNTHROID) 75 mcg ORAL DAILY - atenolol 50 mg tab(s) (TENORMIN) 50 mg ORAL DAILY - ondansetron 4 mg tab(s) (ZOFRAN) 4 mg ORAL q 6 H PRN Or - ondansetron (PF) 4 mg injection (ZOFRAN) 4 mg INTRAVENOUS q 6 H PRN - docusate sodium 100 mg cap(s) (COLACE) 100 mg ORAL BID Labs: Recent Labs 07/31/19 0400 07/30/19 0930 NA 135* 136 K 3.9 3.7 CHLOR 108* 106 CO2 22 22 BUN 16 15 CREAT 0.84 0.79 GLUC 110* 168* ANION 9 12 CA 8.7 8.5 MG 2.0 1.9 P 3.6 3.4 WBC 5.83 5.25 HB 14.4 14.2 HCT 45.7* 44.5 PLT 214 202 Exam: GENERAL: No distress, Alert NEURO: orientedx3; speech clear and fluent; msp intact and equal HEENT: fluid collection less than at admission; perrl/eomi; no droop LUNGS: Unlabored breathing NECK/BACK: Incision C/D/I, drain: 10cc/hr easily drains ASSESSMENT AND PLAN: Active Hospital Problems Diagnosis Date Noted - 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 Given that the collection does not fluctuate in size and that she was so symptomatic from mass effect when she arrived, will consider wound revision with continue lumbar drainage some time later this week (likely Wednesday or ). Additionally, given headaches post drainage, will decrease drainage to 5cc/hr. Milli Juárez MD Neurosurgery July 31, 2019 6:10 PM Previous Version Rose Jurado Pharmacist 07/31/2019 11:15 AM Signed MEDICATION HISTORY AND MEDICATION RECONCILIATION Patient Name:Reena Oreilly : 1945 Source of history:Patient: Reliability of source: Appears reliable, clearly identified: Medication name, Medication dose and Medication frequency and Pharmacy records: [facility]: [phone] Medication Nonadherence Identified: No barriers noted The above information represents the best possible medication history: Yes Reconciliation completed? Yes All [employer] medications addressed by LIP Additional comments: [id number] Medication List Adjustments: Medication Regimen Changes: ? Adjusted APAP to 500 mg tablets, patient takes 2 tablets to equal 1000 mg 2 times daily (but up to 4 times daily) ? Adjusted topamax to 75 mg PM and 50 mg AM, per patient. She has 25 and 50 mg tablets at home Medications Added: ? None Medications Removed: ? Ibuprofen, on hold prior to procedure ? Singulair, patient states no longer taking ? Duplicate topamax 25 mg tablet Short-Term Medications: None Further Clarification Required: None Patient is a 30 day readmission: No Patient Interested in Bedside Delivery: No Time Spent Reviewing Patient's Medications: 25 minutes Allergies: ALLERGIES Allergen Reactions - Amoxicillin Rash - Carbamazepine Rash - Codeine Vomiting - Percocet [Oxycodone* Vomiting - Tegretol [Carbamaze* Vomiting Dizziness, couldn't see straight Skin reaction when went in sun - Tramadol Vomiting - Vicodin [Hydrocodon* Vomiting - Vioxx [Rofecoxib] Rash - Demerol [Meperidine* Intolerance - Neurontin [Gabapent* Intolerance Dizziness, feeling like I couldn't work - Topamax [Topiramate] Intolerance Flushed, red skin Preferred Pharmacy: [facility]: [phone] Current [employer] Medications: Prior to Admission medications as of 07/31/19 1003 Medication Sig Last Dose Taking acetaminophen (TYLENOL) 500 mg tablet Take 500 mg by mouth every 6 hours as needed for Pain. Yes topiramate (TOPAMAX) 50 mg tablet Take 1 tablet by mouth twice daily. Patient taking differently: Take 50 mg by mouth twice daily. 50 mg in AM, 75 mg HS Yes topiramate (TOPAMAX) 25 mg tablet Take 1 tablet by mouth twice daily. Patient taking differently: Take 25 mg by mouth once daily. 50 mg in AM, 75 mg HS Yes levothyroxine (SYNTHROID) 75 mcg tablet Take 1 tablet by mouth once daily. Yes atenolol (TENORMIN) 50 mg tablet Take 1 tablet by mouth once daily. Yes Rose Jurado, Pharmacist July 31, 2019 11:08 AM Sarah Rubin, RN, RN 07/31/2019 11:09 AM Signed CARE MANAGEMENT PROGRESS NOTE SERVICE DATE: July 31, 2019 SERVICE TIME: 1105 LOS: 3 days Needs Prior to Discharge: To Be Determined Chart reviewed. Patient remains in NSICU w/ lumbar drain. Nursing states plan for OR today. Unsure of DC needs at this time. Recommend PT/OT evals once medically ready. CM to follow for transitional needs. SIGNATURE: Sarah Rubin RN PATIENT NAME: Kate Oreilly DATE: July 31, 2019 TIME: 11:06 AM PAGER/CONTACT #: Leta DO Clementina, DO 07/31/2019 2:07 PM Written NEURO ICU PROGRESS NOTE DATE OF ADMISSION: 07/26/2019 Subjective Hospital Course: 74 year old female with a history of trigeminal neuralgia s/p microvascular decompression of R trigeminal nerve 04/2019, and pseudomeningocele. Post-operatively after nerve decompression, she started noticing swelling behind her right ear. She started to develop difficulty swallowing. In ED, CT head and neck demonstrating [id number] fluid collection in R occipital region overlying surgical mesh, likely pseudomeningocele. She was admitted and neurosurgery monitoring on the RNF. Given continued expansion and progression of fluid buildup, lumbar drain was placed. Patient transferred to NSICU for lumbar drain placement and continued neuro monitoring. Events Since Last Note: No acute events overnight. Patient complains of ongoing headache this morning. Objective BP 144/66 Pulse 66 Temp 36.2 ?C (97.2 ?F) Resp 17 Ht 170.2 cm (5' 7) Wt 85.7 kg (188 lb 15 oz) LMP (LMP Unknown) SpO2 99% BMI 29.59 kg/m? Weight change: Neuro: GCS: Eyes: 4. Spontaneous Verbal: 5: Oriented Motor: 6: Obeys Motor commands Total: 15 CRANIAL NERVES: Normal mood and affect. CNII-XII grossly intact. MOTOR STRENGTH: Upper and lower extremity strength 4/5 bilaterally SENSATION: Intact light touch CV: S1S2 present. Regular rate. Pulm: Lungs clear to auscultation bilaterally., Mechanical Ventilation: No. Supplemental Oxygen: No GI/: Abdomen soft, non-tender. BSx4 Skin/Extremities: Edema- No Peripheral pulses- Present all extremities Wounds/Drsgs- No Breakdown- No Diagnostic tests reviewed for today's visit: Most recent labs and imaging results. Lines, Drains, and Airways Line Peripheral 07/26/19 1337 Right Forearm 20 Gauge 5 days Peripheral 07/29/19 0600 Short Left Hand 22 Gauge 2 days Drain Drain/Tube 07/28/19 2130 Lumbar Midline Back 2 days ICU Checklist Last Documented/Reviewed time: 07/30/2019 12:57 PM -- ICU Delirium Status: CAM Positive - new, will place orders Restraint Status: None ICU Mobility-Pt Has Been Out of Bed: Yes Line Status: None Ventilator: None Gregorio Status: None GI/Stress Ulcer Prophylaxis: None - not required Nutrition is at Goal: Yes VTE Prophylaxis: Chemoprophylaxis: No chemoprophylaxis No Chemoprophylaxis Reason: Bleeding risk Pressure Injury Status: None ICU Plan Reviewed with RN: Yes ICU Family Update in Last 24 Hours: Patient updated ICU Disposition- Is Patient Clinically Ready to Transfer to [facility] or SDU?: No Discharge Planning: Home PERSONAL INVOLVEMENT IN CARE: Reviewing initiation, responses and adjustments to therapies, coordination of care, and updating family with Staff Physician, Dr. Hardy. Leta Mcrae DO, DO 07/31/2019 2:10 PM Edited S/p lumbar drain neurosurg management Previous Version Leta Mcrae DO, DO 07/31/2019 2:10 PM Written Pain control Carmelo Hardy MD 07/31/2019 3:46 PM Signed SERVICE DATE: 07/31/2019 SERVICE TIME: 2:11 PM NEURO ICU PROGRESS NOTE DATE OF ADMISSION: 07/26/2019 Subjective Hospital Course: 74 year old female with a history of trigeminal neuralgia s/p microvascular decompression of R trigeminal nerve 04/2019, and pseudomeningocele. Post-operatively after nerve decompression, she started noticing swelling behind her right ear. She started to develop difficulty swallowing. In ED, CT head and neck demonstrating [id number] fluid collection in R occipital region overlying surgical mesh, likely pseudomeningocele. She was admitted and neurosurgery monitoring on the RNF. Given continued expansion and progression of fluid buildup, lumbar drain was placed. Patient transferred to NSICU for lumbar drain placement and continued neuro monitoring. Events Since Last Note: No acute events overnight. Patient complains of ongoing headache this morning. Objective BP 144/66 Pulse 66 Temp 36.2 ?C (97.2 ?F) Resp 17 Ht 170.2 cm (5' 7) Wt 85.7 kg (188 lb 15 oz) LMP (LMP Unknown) SpO2 99% BMI 29.59 kg/m? Weight change: Neuro: GCS: Eyes: 4. Spontaneous Verbal: 5: Oriented Motor: 6: Obeys Motor commands Total: 15 CRANIAL NERVES: Normal mood and affect. CNII-XII grossly intact. MOTOR STRENGTH: Upper and lower extremity strength 4/5 bilaterally SENSATION: Intact light touch CV: S1S2 present. Regular rate. Pulm: Lungs clear to auscultation bilaterally., Mechanical Ventilation: No. Supplemental Oxygen: No GI/: Abdomen soft, non-tender. BSx4 Skin/Extremities: Edema- No Peripheral pulses- Present all extremities Wounds/Drsgs- No Breakdown- No Diagnostic tests reviewed for today's visit: Most recent labs and imaging results. Lines, Drains, and Airways Line Peripheral 07/26/19 1337 Right Forearm 20 Gauge 5 days Peripheral 07/29/19 0600 Short Left Hand 22 Gauge 2 days Drain Drain/Tube 07/28/19 2130 Lumbar Midline Back 2 days ICU Checklist Last Documented/Reviewed time: 07/30/2019 12:57 PM -- ICU Delirium Status: CAM Positive - new, will place orders Restraint Status: None ICU Mobility-Pt Has Been Out of Bed: Yes Line Status: None Ventilator: None Gregorio Status: None GI/Stress Ulcer Prophylaxis: None - not required Nutrition is at Goal: Yes VTE Prophylaxis: Chemoprophylaxis: No chemoprophylaxis No Chemoprophylaxis Reason: Bleeding risk Pressure Injury Status: None ICU Plan Reviewed with RN: Yes ICU Family Update in Last 24 Hours: Patient updated ICU Disposition- Is Patient Clinically Ready to Transfer to [facility] or SDU?: No Discharge Planning: Home PERSONAL INVOLVEMENT IN CARE: Reviewing initiation, responses and adjustments to therapies, coordination of care, and updating family with Staff Physician, Dr. Hardy. Assessment AND Plan Active Hospital Problems as of 07/31/2019 Noted - Resolved Hospital Trigeminal neuralgia 05/18/2005 - Present Current Assessment AND Plan Pain control Pseudomeningocele 07/27/2019 - Present Current Assessment AND Plan S/p lumbar drain neurosurg management Medication and Non-Pharmacologic VTE Prophylaxis/Anticoagulants 07/26/191714 vte pharmacologic prophylaxis contraindicated (tx,ar) 07/26/191714 pneumatic compression stockings (tx,ar) 07/26/191714 activity - mobilize patient ([place], [place]) VTE Prophylaxis: Contraindicated per neurosurgery at this time Plan of care discussed with: Provider, RN, Patient SIGNATURE: Leta Mcrae DO PATIENT NAME: Kate Oreilly DATE: July 31, 2019 TIME: 2:11 PM PAGER/CONTACT #: [phone] NSICU STAFF ADDENDUM Carmelo Hardy MD Pt seen and examined independently. Labs/vitals/imaging reviewed personally. Agree with above, reflecting my direct input. Trial Reglan. Options for pain control are sadly limited. Anticipate surgical revision later this week. C/w supportive care. PERSONAL INVOLVEMENT IN CARE: ? ?Patient/Family Updated: Patient and/or family were updated regarding the goals of care,?medical plan for the day, library consultant recommendations, medical disposition and current medical condition/prognosis as and if clinically indicated. All questions and concerns were answered and addressed at this juncture. I agree with the resident MD note as above, except as otherwise indicated; my additional comments, if necessary, are in bold. ? This patient has a high probability of sudden, clinically significant deterioration, which requires the highest level of physician preparedness to intervene urgently. I managed/supervised life or organ supporting interventions that required frequent physician assessment. I devoted my full attention to the direct care of this patient for the amount of time indicated below. Time I spent with family or surrogate(s) is included only if the patient was incapable of providing the necessary information or participating in medical decision making. Time devoted to teaching and to any procedures I billed separately is not included. ? Critical Care Documentation: The patient has the following organ/system impairment(s): As above Time spent providing critical care services: 30 minutes. ? SIGNATURE: Carmelo Hardy MD PATIENT NAME: Kate Oreilly DATE: 07/31/19 TIME: 3:42 PM PAGER/CONTACT #: [phone] Previous Version Leta Mcrae DO, DO 08/01/2019 7:47 AM Written NEURO ICU PROGRESS NOTE DATE OF ADMISSION: 07/26/2019 Subjective Hospital Course: 74 year old female with a history of trigeminal neuralgia s/p microvascular decompression of R trigeminal nerve 04/2019, and pseudomeningocele. Post-operatively after nerve decompression, she started noticing swelling behind her right ear. She started to develop difficulty swallowing. In ED, CT head and neck demonstrating [id number] fluid collection in R occipital region overlying surgical mesh, likely pseudomeningocele. She was admitted and neurosurgery monitoring on the RNF. Given continued expansion and progression of fluid buildup, lumbar drain was placed. Patient transferred to NSICU for lumbar drain placement and continued neuro monitoring.? No notes on file Events Since Last Note: No acute events overnight. Pseudomeningocele does not appear to be completely draining. Neurosurg decreased patient's lumbar drain to 5 cc/hr . Patient complains of ongoing headache this morning, worsened by sitting up. Objective BP 126/64 Pulse 64 Temp 36.3 ?C (97.3 ?F) Resp 14 Ht 170.2 cm (5' 7) Wt 85.7 kg (188 lb 15 oz) LMP (LMP Unknown) SpO2 97% BMI 29.59 kg/m? Weight change: Neuro: GCS: Eyes: 4. Spontaneous Verbal: 5: Oriented Motor: 6: Obeys Motor commands Total: 15 CRANIAL NERVES: Normal mood and affect. CNII-XII grossly intact. MOTOR STRENGTH: Upper and lower extremity 5/5 bilaterally SENSATION: Intact light touch COORDINATION: Finger-to- nose-finger intact bilaterally CV: RRR Pulm: Lungs CTAB, Mechanical Ventilation: No. Supplemental Oxygen: No GI/: Abdomen soft, nontender. Skin/Extremities: Edema- No Peripheral pulses- Present all extremities Wounds/Drsgs- No Breakdown- No Diagnostic tests reviewed for today's visit: Most recent labs and imaging results. Lines, Drains, and Airways Line Peripheral 07/26/19 1337 Right Forearm 20 Gauge 5 days Peripheral 07/29/19 0600 Short Left Hand 22 Gauge 3 days Drain Drain/Tube 07/28/19 2130 Lumbar Midline Back 3 days ICU Checklist Last Documented/Reviewed time: 07/30/2019 12:57 PM -- ICU Delirium Status: CAM Positive - new, will place orders Restraint Status: None ICU Mobility-Pt Has Been Out of Bed: Yes Line Status: None Ventilator: None Gregorio Status: None GI/Stress Ulcer Prophylaxis: None - not required Nutrition is at Goal: Yes VTE Prophylaxis: Chemoprophylaxis: No chemoprophylaxis No Chemoprophylaxis Reason: Bleeding risk Pressure Injury Status: None ICU Plan Reviewed with RN: Yes ICU Family Update in Last 24 Hours: Patient updated ICU Disposition- Is Patient Clinically Ready to Transfer to [facility] or SDU?: No Discharge Planning: Home PERSONAL INVOLVEMENT IN CARE: Reviewing initiation, responses and adjustments to therapies, coordination of care, and updating family with Staff Physician, Dr. Hardy. Emily Martinez, LORA, PA 08/01/2019 8:48 AM Signed Neurosurgery Progress Note SERVICE DATE: 08/01/2019 SUBJECTIVE: naeon - pt c/o significant h/a and neck discomfort. Sitting up eating breakfast. Denies n/v. OBJECTIVE: Vitals: Temp (24hrs), Av.3 ?C (97.3 ?F), Min:36.1 ?C (97 ?F), Max:36.4 ?C (97.5 ?F) BP 126/64 Pulse 64 Temp 36.3 ?C (97.3 ?F) Resp 14 Ht 170.2 cm (5' 7) Wt 85.7 kg (188 lb 15 oz) LMP (LMP Unknown) SpO2 97% BMI 29.59 kg/m? O2 Therapy: Room Air IANDO: Date 07/31/19699 - 08/01/19 0608/01/19699 - 08/02/19 0659 Shift 9989-5645 4125-5415 7319-3163 24 Hour Total 3735-3708 3818-1154 2057-9568 24 Hour Total INTAKE Shift Total OUTPUT Urine 200 200 Void (ml) 200 200 Urine Not Saved. 2 x 1 x 2 x 5 x Tubes 70 40 40 150 5 5 Drain/Tube Output (Drain/Tube 07/28/19 2130 Lumbar Midline Back) 70 40 40 150 5 5 Shift Total 70 240 40 350 5 5 Weight (kg) 85.7 85.7 85.7 85.7 85.7 85.7 85.7 85.7 MEDICATIONS Current Facility-Administered Medications Medication Dose Route Frequency - metoclopramide HCl 10 mg injection (REGLAN) 10 mg INTRAVENOUS q 6 H PRN - potassium chloride ER 20-40 mEq tab(s) (K-DUR, KLOR-CON) 20-40 mEq ORAL/FEEDING TUBE PRN Or - potassium chloride iv piggyback 20 mEq/100 mL 20 mEq INTRAVENOUS PRN - magnesium sulfate in water 2 g in sterile water 50 ml 2 g INTRAVENOUS PRN - sodium phosphate 45 mmol in NaCl 0.9% 250 mL 45 mmol INTRAVENOUS PRN - calcium gluconate 4 g in NaCl 0.9% 250 mL 4 g INTRAVENOUS PRN - polyethylene glycol 3350 17 g packet (MIRALAX, GLYCOLAX) 17 g ORAL/FEEDING TUBE DAILY - acetaminophen 650 mg tab(s) (TYLENOL) 650 mg ORAL q 4 H PRN - fentaNYL 50 mcg/mL 25-50 mcg injection (SUBLIMAZE) 25-50 mcg INTRAVENOUS q 1 H PRN - topiramate 50 mg tab(s) (TOPAMAX) 50 mg ORAL DAILY (6 AM) - topiramate 75 mg tab(s) (TOPAMAX) 75 mg ORAL DAILY AT 6 PM - levothyroxine 75 mcg tab(s) (SYNTHROID) 75 mcg ORAL DAILY - atenolol 50 mg tab(s) (TENORMIN) 50 mg ORAL DAILY - docusate sodium 100 mg cap(s) (COLACE) 100 mg ORAL BID Labs: Recent Labs 08/01/19 0520 07/31/19 0400 NA 138 135* K 3.6 3.9 CHLOR 110* 108* CO2 22 22 BUN 13 16 CREAT 0.73 0.84 GLUC 98 110* ANION 10 9 CA 7.9* 8.7 MG 2.1 2.0 P 3.0 3.6 WBC 6.36 5.83 HB 14.3 14.4 HCT 44.2 45.7* PLT 208 214 Exam: GENERAL: No distress, Alert NEURO: orientedx3, msp intact, speech fluent HEENT: fluid collection unchanged; perrl/eomi LUNGS: Unlabored breathing ASSESSMENT AND PLAN: Active Hospital Problems Diagnosis Date Noted - Pseudomeningocele 07/27/2019 - Trigeminal neuralgia 05/18/2005 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 s/p crani for meningioma 04/2019 - s/p lumbar drain placement - neuro stable - pain control - pt very sensitive to narcotic - 'everything makes her very sick' - currently Tylenol - to OR likely this week for revision SIGNATURE: LORA Garrido PATIENT NAME: Kate Oreilly DATE: August 01, 2019 TIME: 8:17 AM Pager: [phone] Laverne Duncan RD, LD 08/01/2019 11:54 AM Signed NUTRITION THERAPY INITIAL ASSESSMENT SERVICE DATE: 08/01/2019 SERVICE TIME: 8:30 AM Nutrition Assessment: Recommended Malnutrition Diagnosis: No Malnutrition Identified Nutrition Diagnosis: Problem: Suboptimal oral intake Related to: Inability to consume sufficient nutrients As evidenced by: Medical condition;Patient/family self-report;Intake records Estimated kilocalorie needs: 2690-3325 Calorie Calculation Method: 25-30 kcals/kg Estimated protein needs (grams): 73-98 Grams protein determined by: 1.2-1.6 g/kg Care Plan: Continue current diet Supplements: Ensure Clear Monitor and Evaluation: Meet greater than 75% of estimated needs;Monitor fluid/electrolyte balance;Monitor labs, I/Os, vital signs, weight -- Reason for Assessment: LOS HPI: 74 year old female ith a history of trigeminal neuralgia s/p microvascular decompression of R trigeminal nerve 04/2019 and pseudomeningocele. Note difficulty swallowing and swelling post-op. Admitted for lumbar drain. PAST MEDICAL HISTORY Diagnosis Date - Diverticulosis of colon (without mention of hemorrhage) - Family history of malignant neoplasm of gastrointestinal tract - Head injury 09/30 trip fall - HTN (hypertension) - Hypothyroidism - Internal hemorrhoids without mention of complication - SREEKANTH (obstructive sleep apnea) - Other and unspecified hyperlipidemia - Pneumonia 07/2011 - Snoring - Trigeminal neuralgia Intake History: Nutrition Intake Prior to Admission: Greater than 75% estimated energy needs greater than or equal to 1 month(still ate well even with pain and difficulty swallowing) Current Intake: Less than 75% estimated energy needs over: the past 4 days with worsening headache and inability to sit up for very long. Patient reports at beginning of admission she was eating everything on her trays. She is selective with her foods d/t needing softer/easy to eat foods. Dislikes milk and supplements ( takes several supps at home). Agreeable to try ruiz ensure clear. Current Diet: DIET REGULAR Anthropometrics: Height: 170.2 cm (5' 7) Weight: 85.7 kg (188 lb 15 oz) Dosing Weight: 61 kg (134 lb 7.7 oz) Usual Weight: 93 kg (205 lb 0.4 oz) Body mass index is 29.59 kg/m?. Overweight Weight change percentage over time: insignficant weight change Last Wt 07/26/19 : 85.7 kg (188 lb 15 oz) - bed. ?accuracy - pt denied weight being accurate. Attempted bed weight during visit and reported 26 kg. 07/22/19 : 94.6 kg - doctor's office per patient report. 06/23/19 : 93 kg (205 lb) 06/22/19 : 94.6 kg (208 lb 9.6 oz) 05/26/19 : 93.9 kg (207 lb) 05/12/19 : 95.4 kg (210 lb 5.1 oz) 05/05/19 : 93.9 kg (207 lb) 05/02/19 : 94.3 kg (208 lb) 04/17/19 : 93.4 kg (206 lb) 03/23/19 : 94.3 kg (207 lb 12.8 oz) 01/23/19 : 92.1 kg (203 lb 0.7 oz) 12/26/2018 92.1 kg (203 lb) 11/10/2018 93 kg (205 lb) 10/13/2018 94.4 kg (208 lb 3.2 oz) 09/08/2018 92.7 kg (204 lb 6.4 oz) 08/16/2017 93.4 kg (206 lb) Physical Exam: Subcutaneous fat loss: No fat loss Muscle loss: No muscle loss Potential micronutrient deficiency: No deficiency identified Edema/Ascites: (neck edema) GI Symptoms: Nausea Functional Status: Not related to malnutrition status Potential Signs of Inflammation: Chronic condition;Imaging studies SIGNATURE: Laverne Duncan RD, LD PATIENT NAME: Kate Oreilly DATE: August 01, 2019 TIME: 8:30 AM PAGER: [phone] Leta Mcrae DO, 08/01/2019 2:47 PM Written S/p lumbar drain Drainage decreased to 3 cc/hr per neurosurg Wound revision scheduled with neurosurg tomorrow or Carmelo Hardy MD 08/01/2019 3:41 PM Addendum SERVICE DATE: 08/01/2019 SERVICE TIME: 2:47 PM NEURO ICU PROGRESS NOTE DATE OF ADMISSION: 07/26/2019 Subjective Hospital Course: 74 year old female with a history of trigeminal neuralgia s/p microvascular decompression of R trigeminal nerve 04/2019, and pseudomeningocele. Post-operatively after nerve decompression, she started noticing swelling behind her right ear. She started to develop difficulty swallowing. In ED, CT head and neck demonstrating [id number] fluid collection in R occipital region overlying surgical mesh, likely pseudomeningocele. She was admitted and neurosurgery monitoring on the RNF. Given continued expansion and progression of fluid buildup, lumbar drain was placed. Patient transferred to NSICU for lumbar drain placement and continued neuro monitoring.? No notes on file Events Since Last Note: No acute events overnight. Pseudomeningocele does not appear to be completely draining. Neurosurg decreased patient's lumbar drain to 5 cc/hr . Patient complains of ongoing headache this morning, worsened by sitting up. Objective BP 126/64 Pulse 64 Temp 36.3 ?C (97.3 ?F) Resp 14 Ht 170.2 cm (5' 7) Wt 85.7 kg (188 lb 15 oz) LMP (LMP Unknown) SpO2 97% BMI 29.59 kg/m? Weight change: Neuro: GCS: Eyes: 4. Spontaneous Verbal: 5: Oriented Motor: 6: Obeys Motor commands Total: 15 CRANIAL NERVES: Normal mood and affect. CNII-XII grossly intact. MOTOR STRENGTH: Upper and lower extremity 5/5 bilaterally SENSATION: Intact light touch COORDINATION: Finger-to- nose-finger intact bilaterally CV: RRR Pulm: Lungs CTAB, Mechanical Ventilation: No. Supplemental Oxygen: No GI/: Abdomen soft, nontender. Skin/Extremities: Edema- No Peripheral pulses- Present all extremities Wounds/Drsgs- No Breakdown- No Diagnostic tests reviewed for today's visit: Most recent labs and imaging results. Lines, Drains, and Airways Line Peripheral 07/26/19 1337 Right Forearm 20 Gauge 5 days Peripheral 07/29/19 0600 Short Left Hand 22 Gauge 3 days Drain Drain/Tube 07/28/19 2130 Lumbar Midline Back 3 days ICU Checklist Last Documented/Reviewed time: 07/30/2019 12:57 PM -- ICU Delirium Status: CAM Positive - new, will place orders Restraint Status: None ICU Mobility-Pt Has Been Out of Bed: Yes Line Status: None Ventilator: None Gregorio Status: None GI/Stress Ulcer Prophylaxis: None - not required Nutrition is at Goal: Yes VTE Prophylaxis: Chemoprophylaxis: No chemoprophylaxis No Chemoprophylaxis Reason: Bleeding risk Pressure Injury Status: None ICU Plan Reviewed with RN: Yes ICU Family Update in Last 24 Hours: Patient updated ICU Disposition- Is Patient Clinically Ready to Transfer to [facility] or SDU?: No Discharge Planning: Home PERSONAL INVOLVEMENT IN CARE: Reviewing initiation, responses and adjustments to therapies, coordination of care, and updating family with Staff Physician, Dr. Hardy. Assessment AND Plan Active Hospital Problems as of 08/01/2019 Noted - Resolved Hospital Trigeminal neuralgia 05/18/2005 - Present Current Assessment AND Plan Pain control Pseudomeningocele 07/27/2019 - Present Current Assessment AND Plan S/p lumbar drain Drainage decreased to 3 cc/hr per neurosurg Wound revision scheduled with neurosurg tomorrow or Medication and Non-Pharmacologic VTE Prophylaxis/Anticoagulants 07/26/191714 vte pharmacologic prophylaxis contraindicated (tx,ar) 07/26/191714 pneumatic compression stockings ([place], [place]) 07/26/191714 activity - mobilize patient ([place], [place]) VTE Prophylaxis: Contraindicated surgery likely tomorrow Plan of care discussed with: Provider, RN, Patient SIGNATURE: Leta Mcrae DO PATIENT NAME: Kate Oreilly DATE: August 01, 2019 TIME: 2:47 PM PAGER/CONTACT #: [phone] NSICU STAFF ADDENDUM Carmelo Hardy MD Pt seen and examined independently. Labs/vitals/imaging reviewed personally. Agree with above, reflecting my direct input. No changes neurologically. Lumbar drainage down to 3ml per hr. Reglan helping with the nausea but pain remains an obstacle. Per Nsgy, pt will require surgical revision of the pseudomeningocele in the near future. C/w supportive care and lumbar drainage. PERSONAL INVOLVEMENT IN CARE: ? ?Patient/Family Updated: Patient and/or family were updated regarding the goals of care,?medical plan for the day, library consultant recommendations, medical disposition and current medical condition/prognosis as and if clinically indicated. All questions and concerns were answered and addressed at this juncture. I agree with the resident MD note as above, except as otherwise indicated; my additional comments, if necessary, are in bold. ? This patient has a high probability of sudden, clinically significant deterioration, which requires the highest level of physician preparedness to intervene urgently. I managed/supervised life or organ supporting interventions that required frequent physician assessment. I devoted my full attention to the direct care of this patient for the amount of time indicated below. Time I spent with family or surrogate(s) is included only if the patient was incapable of providing the necessary information or participating in medical decision making. Time devoted to teaching and to any procedures I billed separately is not included. ? Critical Care Documentation: The patient has the following organ/system impairment(s): As above Time spent providing critical care services: 30 minutes. ? SIGNATURE: Carmelo Hardy MD PATIENT NAME: Kate Oreilly DATE: 08/01/19 TIME: 3:39 PM PAGER/CONTACT #: [phone] Previous Version Lynette Pratt, RN, RN 08/01/2019 6:31 PM Signed LORA Duran notified that pt felt that fluid collection behind ear has gotten slightly larger since decreasing amount of CSF drainage via lumbar drain to 3 cc/hr. States to continue to monitor for now, but not intervention at this time. Leta Mcrae DO, DO 08/02/2019 8:19 AM Written NEURO ICU PROGRESS NOTE DATE OF ADMISSION: 07/26/2019 Subjective Hospital Course: 74 year old female with?a?history of?trigeminal neuralgia s/p microvascular decompression of R trigeminal nerve 04/2019, and pseudomeningocele. Post-operatively after nerve decompression, she started noticing swelling behind her right?ear. She started to develop difficulty swallowing. In ED, CT head and neck demonstrating [id number] fluid collection in R occipital region overlying surgical mesh, likely pseudomeningocele. She was admitted and neurosurgery monitoring on the RNF. Given continued expansion and progression of fluid buildup, lumbar drain was placed.?Patient transferred to NSICU for lumbar drain placement and continued neuro monitoring.? Events Since Last Note: No acute events overnight. Patient's fluid collection behind right ear noted to be slightly increased from prior. Objective BP 123/63 Pulse 66 Temp 36.3 ?C (97.3 ?F) (Temporal) Resp 11 Ht 170.2 cm (5' 7) Wt 85.7 kg (188 lb 15 oz) LMP (LMP Unknown) SpO2 96% BMI 29.59 kg/m? Weight change: Neuro: GCS: Eyes: 4. Spontaneous Verbal: 5: Oriented Motor: 6: Obeys Motor commands Total: 15 CRANIAL NERVES: Normal mood and affect. CNII-XII grossly intact. MOTOR STRENGTH: Upper and lower extremity 5/5 bilaterally SENSATION: Intact light touch COORDINATION: Finger-to- nose-finger intact bilaterally CV: RRR Pulm: Lungs CTAB, Mechanical Ventilation: No. Supplemental Oxygen: No GI/: Abdomen soft, nontender. Skin/Extremities: Edema- No Peripheral pulses- Present all extremities Wounds/Drsgs- No Breakdown- No Diagnostic tests reviewed for today's visit: Most recent labs Lines, Drains, and Airways Line Peripheral 07/26/19 1337 Right Forearm 20 Gauge 6 days Peripheral 07/29/19 0600 Short Left Hand 22 Gauge 4 days Drain Drain/Tube 07/28/19 2130 Lumbar Midline Back 4 days ICU Checklist Last Documented/Reviewed time: 07/30/2019 12:57 PM -- ICU Delirium Status: CAM Positive - new, will place orders Restraint Status: None ICU Mobility-Pt Has Been Out of Bed: Yes Line Status: None Ventilator: None Gregorio Status: None GI/Stress Ulcer Prophylaxis: None - not required Nutrition is at Goal: Yes VTE Prophylaxis: Chemoprophylaxis: No chemoprophylaxis No Chemoprophylaxis Reason: Bleeding risk Pressure Injury Status: None ICU Plan Reviewed with RN: Yes ICU Family Update in Last 24 Hours: Patient updated ICU Disposition- Is Patient Clinically Ready to Transfer to [facility] or SDU?: No Discharge Planning: Home PERSONAL INVOLVEMENT IN CARE: Reviewing initiation, responses and adjustments to therapies, coordination of care, and updating family with Staff Physician, Dr. Hardy. LORA Garrido, PA 08/02/2019 8:56 AM Signed Neurosurgery Progress Note SERVICE DATE: 08/02/2019 SUBJECTIVE: Sitting up eating - states h/a unchanged but slept better last night. Mild nausea currently. OBJECTIVE: Vitals: Temp (24hrs), Av.3 ?C (97.4 ?F), Min:36.1 ?C (97 ?F), Max:36.6 ?C (97.9 ?F) BP 123/63 Pulse 66 Temp 36.3 ?C (97.3 ?F) (Temporal) Resp 11 Ht 170.2 cm (5' 7) Wt 85.7 kg (188 lb 15 oz) LMP (LMP Unknown) SpO2 96% BMI 29.59 kg/m? O2 Therapy: Room Air IANDO: Date 08/01/19 0700 - 08/02/19 0659 08/02/19 07 - 08/03/19 0659 Shift 8734-5747 8093-6353 6190-1444 24 Hour Total 9822-2578 5654-3014 7829-4281 24 Hour Total INTAKE PO 360 360 PO 360 360 Shift Total 360 360 OUTPUT Urine Urine Not Saved. 2 x 2 x 2 x 6 x Tubes 30 24 24 78 6 6 Drain/Tube Output (Drain/Tube 07/28/19 2130 Lumbar Midline Back) 30 24 24 78 6 6 # of BMs Number of BMs 2 x 2 x 4 x 1 x 1 x Shift Total 30 24 24 78 6 6 Weight (kg) 85.7 85.7 85.7 85.7 85.7 85.7 85.7 85.7 MEDICATIONS Current Facility-Administered Medications Medication Dose Route Frequency - metoclopramide HCl 10 mg injection (REGLAN) 10 mg INTRAVENOUS q 6 H PRN - potassium chloride ER 20-40 mEq tab(s) (K-DUR, KLOR-CON) 20-40 mEq ORAL/FEEDING TUBE PRN Or - potassium chloride iv piggyback 20 mEq/100 mL 20 mEq INTRAVENOUS PRN - magnesium sulfate in water 2 g in sterile water 50 ml 2 g INTRAVENOUS PRN - sodium phosphate 45 mmol in NaCl 0.9% 250 mL 45 mmol INTRAVENOUS PRN - calcium gluconate 4 g in NaCl 0.9% 250 mL 4 g INTRAVENOUS PRN - polyethylene glycol 3350 17 g packet (MIRALAX, GLYCOLAX) 17 g ORAL/FEEDING TUBE DAILY - acetaminophen 650 mg tab(s) (TYLENOL) 650 mg ORAL q 4 H PRN - fentaNYL 50 mcg/mL 25-50 mcg injection (SUBLIMAZE) 25-50 mcg INTRAVENOUS q 1 H PRN - topiramate 50 mg tab(s) (TOPAMAX) 50 mg ORAL DAILY (6 AM) - topiramate 75 mg tab(s) (TOPAMAX) 75 mg ORAL DAILY AT 6 PM - levothyroxine 75 mcg tab(s) (SYNTHROID) 75 mcg ORAL DAILY - atenolol 50 mg tab(s) (TENORMIN) 50 mg ORAL DAILY - docusate sodium 100 mg cap(s) (COLACE) 100 mg ORAL BID Labs: Recent Labs 08/02/19 0324 08/01/19 0520 NA 135* 138 K 3.8 3.6 CHLOR 105 110* CO2 22 22 BUN 15 13 CREAT 0.72 0.73 GLUC 103* 98 ANION 12 10 CA 8.6 7.9* MG 2.0 2.1 P 3.9 3.0 WBC 7.35 6.36 HB 14.5 14.3 HCT 44.5 44.2 PLT 233 208 Exam: GENERAL: No distress, Alert NEURO: orientedx3; speech clear and fluent; msp intact HEENT: right post fluid collection less than in previous days LUNGS: Unlabored breathing NECK/BACK: Incision C/D/I, drain: lumbar drain 3cc/hr draining - clear ASSESSMENT AND PLAN: Active Hospital Problems Diagnosis Date Noted - Pseudomeningocele 07/27/2019 - Trigeminal neuralgia 05/18/2005 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 Patient remains in NSICU. Talked with staff air defense officerZofia EVANGELISTA. OR is planned for 08/03 for revision of lumbar drain. Recommend PT/OT evals once medically ready. CM to follow for transitional needs. ? SIGNATURE: Kimberly Barroso RN PATIENT NAME: Kate Oreilly DATE: August 02, 2019 TIME: 1:37 PM PAGER/CONTACT #: [phone] Leta Mcrae DO, DO 08/02/2019 2:24 PM Written S/p lumbar drain Drainage at 3 cc/hr per neurosurg Wound revision scheduled with neurosurg tomorrow Carmelo Hardy MD 08/03/2019 9:53 AM Signed SERVICE DATE: 08/02/2019 SERVICE TIME: 2:24 PM NEURO ICU PROGRESS NOTE DATE OF ADMISSION: 07/26/2019 Subjective Hospital Course: 74 year old female with?a?history of?trigeminal neuralgia s/p microvascular decompression of R trigeminal nerve 04/2019, and pseudomeningocele. Post-operatively after nerve decompression, she started noticing swelling behind her right?ear. She started to develop difficulty swallowing. In ED, CT head and neck demonstrating [id number] fluid collection in R occipital region overlying surgical mesh, likely pseudomeningocele. She was admitted and neurosurgery monitoring on the RNF. Given continued expansion and progression of fluid buildup, lumbar drain was placed.?Patient transferred to NSICU for lumbar drain placement and continued neuro monitoring.? Events Since Last Note: No acute events overnight. Patient's fluid collection behind right ear noted to be slightly increased from prior. Objective BP 123/63 Pulse 66 Temp 36.3 ?C (97.3 ?F) (Temporal) Resp 11 Ht 170.2 cm (5' 7) Wt 85.7 kg (188 lb 15 oz) LMP (LMP Unknown) SpO2 96% BMI 29.59 kg/m? Weight change: Neuro: GCS: Eyes: 4. Spontaneous Verbal: 5: Oriented Motor: 6: Obeys Motor commands Total: 15 CRANIAL NERVES: Normal mood and affect. CNII-XII grossly intact. MOTOR STRENGTH: Upper and lower extremity 5/5 bilaterally SENSATION: Intact light touch COORDINATION: Finger-to- nose-finger intact bilaterally CV: RRR Pulm: Lungs CTAB, Mechanical Ventilation: No. Supplemental Oxygen: No GI/: Abdomen soft, nontender. Skin/Extremities: Edema- No Peripheral pulses- Present all extremities Wounds/Drsgs- No Breakdown- No Diagnostic tests reviewed for today's visit: Most recent labs Lines, Drains, and Airways Line Peripheral 07/26/19 1337 Right Forearm 20 Gauge 6 days Peripheral 07/29/19 0600 Short Left Hand 22 Gauge 4 days Drain Drain/Tube 07/28/19 2130 Lumbar Midline Back 4 days ICU Checklist Last Documented/Reviewed time: 07/30/2019 12:57 PM -- ICU Delirium Status: CAM Positive - new, will place orders Restraint Status: None ICU Mobility-Pt Has Been Out of Bed: Yes Line Status: None Ventilator: None Gregorio Status: None GI/Stress Ulcer Prophylaxis: None - not required Nutrition is at Goal: Yes VTE Prophylaxis: Chemoprophylaxis: No chemoprophylaxis No Chemoprophylaxis Reason: Bleeding risk Pressure Injury Status: None ICU Plan Reviewed with RN: Yes ICU Family Update in Last 24 Hours: Patient updated ICU Disposition- Is Patient Clinically (more content not included)... Normal [facility] Hemogram/Diffon 07-26-2019 Abs Immature Grans 0.01 thou/cmm Normal 0.00-0.05 [facility] Comment on above: Performed By: #### M APTT #### [place] [address] Abs Neut (ANC) 2.81 thou/cmm Normal 1.56-6.13 [facility] Comment on above: Performed By: #### M APTT #### [place] [address] Abs. Baso 0.04 thou/cmm Normal 0.01-0.08 [facility] Comment on above: Performed By: #### M APTT #### [place] [address] Abs. [place] 0.29 thou/cmm Normal 0.27-0.70 [facility] Comment on above: Performed By: #### M APTT #### [facility] [address] [place], [place] [address] Basophils/100 WBC (Bld) 0.7 % Normal [facility] Comment on above: Performed By: #### M APTT #### [place] [address] Eosinophils (Bld) [#/Vol] 0.07 thou/cmm Normal 0.00-0.31 [facility] Comment on above: Performed By: #### M APTT #### [place] [address] Eosinophils/100 WBC (Bld) 1.3 % Normal [facility] Comment on above: Performed By: #### M APTT #### [place] [address] Erythrocyte distribution width (RBC) [Ratio] 13.3 % Normal 11.7-14.4 [facility] Comment on above: Performed By: #### M APTT #### [place] [address] Hematocrit (Bld) [Volume fraction] 42.7 % Normal 34.1-44.9 [facility] Comment on above: Performed By: #### M APTT #### [place] [address] Hemoglobin (Bld) [Mass/Vol] 13.4 g/dL Normal 11.2-15.7 [facility] Comment on above: Performed By: #### M APTT #### [place] [address] Immature Grans 0.20 % Normal [facility] Comment on above: Performed By: #### M APTT #### [place] [address] Lymphocytes (Bld) [#/Vol] 2.15 thou/cmm Normal 1.18-3.74 [facility] Comment on above: Performed By: #### M APTT #### [facility] [address] [place], [place] [address] Lymphocytes/100 WBC (Bld) 40.0 % Normal [facility] Comment on above: Performed By: #### M APTT #### [facility] [address] [place], [place] [address] MCH (RBC) [Entitic mass] 29.3 pg Normal 25.6-32.2 [facility] Comment on above: Performed By: #### M APTT #### [facility] [address] [place], [place] [address] MCHC (RBC) [Mass/Vol] 31.4 % Low 31.6-34.8 [facility] Comment on above: Performed By: #### M APTT #### [place] [address] MCV (RBC) [Entitic vol] 93.4 fL Normal 79.4-94.8 [facility] Comment on above: Performed By: #### M APTT #### [place] [address] Monocytes/100 WBC (Bld) 5.4 % Normal [facility] Comment on above: Performed By: #### M APTT #### [place] [address] Platelet mean volume (Bld) [Entitic vol] 11.5 fL Normal 9.4-12.3 [facility] Comment on above: Performed By: #### M APTT #### [address] [address] Platelets (Bld) [#/Vol] 213 thou/cmm Normal 182-369 [facility] Comment on above: Performed By: #### M APTT #### [address] [address] RBC (Bld) [#/Vol] 4.57 mil/cmm Normal 3.93-5.22 [facility] Comment on above: Performed By: #### M APTT #### [place] [address] RDW SD 45.7 fl Normal 36.4-46.3 [facility] Comment on above: Performed By: #### M APTT #### [facility] [address] [place], [place] [address] Seg Neutrophil 52.4 % Normal [facility] Comment on above: Performed By: #### M APTT #### [facility] [address] [place] [address] WBC (Bld) [#/Vol] 5.37 thou/cmm Normal 3.98-10.04 [facility] Comment on above: Performed By: #### M APTT #### [facility] [address] [place] [address] Sed Rateon 07-26-2019 Sed Rate 8 mm/hr Normal 0-20 [facility] Comment on above: Performed By: #### C BC1 #### [place] [address] CNOVon 07-17-2019 CNOV Office Visit (BEN ) -- KIARAKATE THACKER ([id number]) 1945 F Date Time Provider Department 07/17/19 1:00 PM SAEID TORO (APPLE CHECKER.VALUE STREAM MANAGER) BEN During your visit today, we recorded the following information about you: Saeid Toro APRN.CNP 07/17/2019 1:48 PM Signed NEUROSURGERY POST-OP NOTE MD Saeid Orlando, [place], VALUE STREAM MANAGER Date of visit: July 17, 2019 Patient Name: Ms.Dorothy Paty Oreilly Date of : 1945 Current Age: [age] year old Sex: female MRN/E# [id number] Last Office Visit: 06/23/2019 SURGERY:?right revision microvascular decompression of trigeminal nerve, retrosigmoid approach on 05/12/19. Pre-Surgical Symptoms:?right jaw pain > right neck pain; neck pain radiates to right shoulder without numbness or tingling; right jaw pain with continuous numbness and tingling Kate Oreilly is having her 2-month post operative visit. She is added on today because of incisional concerns. Today, she reports swelling and pain at her incision since awakening 2-3 days ago with swelling along her right crani incision. She denies headaches, fevers, sweats, chills, changes in hearing, vision, post nasal drip, congestion since the swelling occurred. She reports that the swelling is slowly getting larger. She is keeping her head elevated at all times, is not sleeping on her right side, and avoids bending over. She denies dizziness, imbalance. She has had to cut back on the topiramate due to GI upset with this medication. She has not yet started the prednisone taper as her cough has not yet resolved. She feels that surgery has not been as helpful as she had hoped. She continues with jaw pain. She plans for Pain Management evaluation and possible injection on 07/25/2019. Her Post Op Course thus far: At her 1st post op appointment on 05/22/19, she noted improvement in her right jaw pain. She has complaints of right jaw pain with intermittent numbness. Options including repeat MRI for evaluation for gamma knife again vs balloon compression vs glycerol injections if pain becomes bad enough that she would want additional treatment were discussed with her. ? She contacted the office on 06/01/19, with complaints of pain in her right jaw, right ear, and right side of her nose. At that time, she was Topamax 2 tablets BID, it was recommended that she take 3 tablets BID. She was then to call on 06/05/19 to evaluate how she was doing. ? When she contacted the office on 06/05/19, she stated the pain slightly decreased, but it was still there. She also noted right eye blurred vision x10 days. She was told to proceed with her MRI and follow up once completed. The MRI, done on 06/23/2019, demonstrated post operative changes with increase in size of an oval focus in the region of the right trigeminal nerve, felt due to placement of Denilson material intra-operatively. ? At her 2nd post op visit, on 06/23/2019, she had complaints of right jaw pain, a throbbing headache in her posterior, dorsal, and frontal regions: better with staying still, worse with motion. She continued with right eye blurry vision. A dexamethasone course / taper was re-ordered to start after her URI had resolved. Topiramate was refilled. Discussion regarding Gamma Knife vs balloon compression was had. Shortly after that visit, her PCP referred her to Pain Management. Current Outpatient Medications Medication Sig Dispense Refill - topiramate (TOPAMAX) 50 mg tablet Take 1 tablet by mouth twice daily. 60 tablet 2 - topiramate (TOPAMAX) 25 mg tablet Take 1 tablet by mouth twice daily. 60 tablet 2 - dexamethasone (DECADRON) 2 mg tablet Take 2 tablets by mouth twice daily with meals for 7 days, THEN 1 tablet three times daily for 7 days, THEN 1 tablet twice daily with meals for 7 days, THEN 1 tablet daily with breakfast for 7 days. 70 tablet 0 - benzonatate (TESSALON PERLE) 100 mg capsule Take 2 capsules by mouth three times daily as needed. 42 capsule 0 - topiramate (TOPAMAX) 25 mg tablet Take 3 tablets by mouth twice daily. 180 tablet 0 - acetaminophen (TYLENOL) 325 mg tablet Take 650 mg by mouth every 6 hours as needed. - levothyroxine (SYNTHROID) 75 mcg tablet Take 1 tablet by mouth once daily. 90 tablet 3 - atenolol (TENORMIN) 50 mg tablet Take 1 tablet by mouth once daily. 90 tablet 3 - montelukast (SINGULAIR) 10 mg tablet Take 1 tablet by mouth daily at bedtime. (Patient not taking: Reported on 06/23/2019 ) 90 tablet 3 - Ibuprofen 200 mg cap Take by mouth as needed. ON HOLD No current facility-administered medications for this visit. Objective Review of Systems Constitutional: Positive for activity change. Negative for chills, diaphoresis and fever. HENT: Positive for hearing loss. Negative for dental problem, postnasal drip, sinus pressure, sinus pain and trouble swallowing. Hearing aid intact in right ear. No new hearing loss per patient. Right Jaw pain from the trigeminal nerve Eyes: Positive for visual disturbance. Negative for pain. Visual disturbance is stable per patient Respiratory: Positive for cough. Negative for apnea, chest tightness and shortness of breath. Cardiovascular: Negative for chest pain and leg swelling. Gastrointestinal: Negative for abdominal pain. Genitourinary: Negative for difficulty urinating. Skin: Negative for color change, rash and wound. Neurological: Negative for dizziness, tremors, facial asymmetry, weakness, light-headedness, numbness and headaches. Hematological: Does not bruise/bleed easily. Psychiatric/Behavioral: Negative for agitation and behavioral problems. The patient is not nervous/anxious. Physical Exam Constitutional: She is well-developed, well-nourished, and in no distress. HENT: Head: Normocephalic and atraumatic. Pulmonary/Chest: Effort normal. Neurological: She is alert. Skin: Skin is warm and dry. Psychiatric: Her speech is normal. Mood, memory, affect and judgment normal. Neurological Exam Mental Status Alert. Oriented to person, place, time and situation. Speech is normal. Language is fluent with no aphasia. Motor Normal muscle bulk throughout. Normal muscle tone. Gait Casual gait is normal including stance, stride, and arm swing. WOUND ASSESSMENT: Well healed incision. Soft swelling approximately 3 cm wide x 5 cm in length with protrusion height of 2 cm. No erythema, no warmth, no drainage. Non-tender to palpation. Reviewed post operative CT brain and MRI brain with patient and her daughter. IMP: Kate Oreilly is a 74 year old female who is 2 months post op decompression of trigeminal nerve. She currently has swelling at the incision. Doubt infection (no signs/symptoms), doubt CSF leak (no signs/symptoms); likely a seroma given degree of swelling and lack of constitutional symptomology PLAN: 1. Imaging: CT Brain WO IVCON to evaluate the region of swelling along with bone imaging to determine if there is cerebral source of swelling. If CT is not helpful, can consider MRI. MRI 06/23/2019 was done 3 weeks before onset of symptoms. 2. Okay to put ice to site. No heat to site. 3. Follow up with Dr. Juárez in [address] as above. Discussed above with Ms. Oreilly and her daughter, both of whom verbalize understanding and agreement with plan. All questions were answered with their verbalized satisfaction with responses. Saeid Toro APRN, VALUE STREAM MANAGER Neurosurgery Nurse Practitioner Referring Provider: KENN BEAUCHAMP [[id number]] Allergies As of Date: 07/17/2019 Noted Allergy Reaction AMOXICILLIN 03/30/2005 2 - Rash CARBAMAZEPINE 11/10/2018 2 - Rash CODEINE 05/20/2011 11 - Vomiting PERCOCET (OXYCODONE-ACETAMINOPHEN)0 09/15/2010 11 - Vomiting TEGRETOL (CARBAMAZEPINE ANALOGUES)04/17/2009 11 - Vomiting Comments: Dizziness, couldn't see straight Skin reaction when went in sun TRAMADOL 09/15/2010 11 - Vomiting VICODIN (HYDROCODONE-ACETAMINOPHE* 09/15/2010 11 - Vomiting VIOXX (ROFECOXIB) 03/30/2005 2 - Rash DEMEROL (MEPERIDINE HCL) 03/30/2005 5 - Intolerance NEURONTIN (GABAPENTIN) 04/17/2009 5 - Intolerance Comments: Dizziness, feeling like I couldn't work TOPAMAX (TOPIRAMATE) 05/22/2019 5 - Intolerance Comments: Flushed, red skin Date Reviewed: 06/23/2019 Reviewed by: Damon Silverio - Fully Assessed Reason for Visit: Post-Op Visit [1236] Cmt: incision swelling Primary Visit Diagnosis:Trigeminal neuralgia [G50.0] Order(s):CT BRAIN WO IVCON [[id number]] Order #: [id number] FUTURE Prescriptions as of 07/17/2019 Sig: TOPIRAMATE 50 MG TABLET Take 1 tablet by mouth twice * TOPIRAMATE 25 MG TABLET Take 1 tablet by mouth twice * DEXAMETHASONE 2 MG TABLET Take 2 tablets by mouth twice* BENZONATATE 100 MG CAPSULE Take 2 capsules by mouth thre* TOPIRAMATE 25 MG TABLET Take 3 tablets by mouth twice* ACETAMINOPHEN 325 MG TABLET Take 650 mg by mouth every 6 * LEVOTHYROXINE 75 MCG TABLET Take 1 tablet by mouth once d* ATENOLOL 50 MG TABLET Take 1 tablet by mouth once d* MONTELUKAST 10 MG TABLET Take 1 tablet by mouth daily * Patient not taking: Reported on 06/23/2019 IBUPROFEN 200 MG CAPSULE Take by mouth as needed. ON H* Problem List As Of Date 07/17/2019 Noted Resolved CHRONIC SINUSITIS NEC [J32.8] 05/18/2005 Trigeminal neuralgia [G50.0] 05/18/2005 More... FAMILY HISTORY OF GI NEOPLASM [Z80.0] 10/10/2007 Hyperlipidemia, mixed [E78.2] 10/10/2007 Hypothyroidism [E03.9] 10/11/2007 More... SLEEP APNEA NOS [G47.30] 12/03/2008 Vitamin D deficiency [E55.9] 03/21/2010 Meningioma [D32.9] 07/14/2010 Essential hypertension, benign [I10] 08/11/2010 More... Low back pain [M54.5] 11/13/2011 Obesity, Class I, BMI 30-34.9 [E66.9] 05/15/2019 Disposition: Return in about 2 weeks (around 07/31/2019) for CT and F/U with Dr. Juárez. Follow-up and Disposition History Recorded Encounter Status:Closed by SAEID TORO on 07/17/19 [facility] PROGRESSon 07-17-2019 PROGRESS HNO ID: [id number] Author: Saeid Jansen (Vice Principal.Pipeline Technician) [facility] Service: ? Author Type: Nurse Practitioner Type: Progress Notes Filed: 07/17/2019 1:48 PM Note Text: NEUROSURGERY POST-OP NOTE MD Saeid Orlando, APPLE CHECKER, VALUE STREAM MANAGER Date of visit: July 17, 2019 Patient Name: Ms.Dorothy Paty Oreilly Date of : 1945 Current Age: [age] year old Sex: female MRN/E# [id number] Last Office Visit: 06/23/2019 SURGERY:?right revision microvascular decompression of trigeminal nerve, retrosigmoid approach on 05/12/19. Pre-Surgical Symptoms:?right jaw pain > right neck pain; neck pain radiates to right shoulder without numbness or tingling; right jaw pain with continuous numbness and tingling Kate Oreilly is having her 2-month post operative visit. She is added on today because of incisional concerns. Today, she reports swelling and pain at her incision since awakening 2-3 days ago with swelling along her right crani incision. She denies headaches, fevers, sweats, chills, changes in hearing, vision, post nasal drip, congestion since the swelling occurred. She reports that the swelling is slowly getting larger. She is keeping her head elevated at all times, is not sleeping on her right side, and avoids bending over. She denies dizziness, imbalance. She has had to cut back on the topiramate due to GI upset with this medication. She has not yet started the prednisone taper as her cough has not yet resolved. She feels that surgery has not been as helpful as she had hoped. She continues with jaw pain. She plans for Pain Management evaluation and possible injection on 07/25/2019. Her Post Op Course thus far: At her 1st post op appointment on 05/22/19, she noted improvement in her right jaw pain. She has complaints of right jaw pain with intermittent numbness. Options including repeat MRI for evaluation for gamma knife again vs balloon compression vs glycerol injections if pain becomes bad enough that she would want additional treatment were discussed with her. ? She contacted the office on 06/01/19, with complaints of pain in her right jaw, right ear, and right side of her nose. At that time, she was Topamax 2 tablets BID, it was recommended that she take 3 tablets BID. She was then to call on 06/05/19 to evaluate how she was doing. ? When she contacted the office on 06/05/19, she stated the pain slightly decreased, but it was still there. She also noted right eye blurred vision x10 days. She was told to proceed with her MRI and follow up once completed. The MRI, done on 06/23/2019, demonstrated post operative changes with increase in size of an oval focus in the region of the right trigeminal nerve, felt due to placement of Denilson material intra-operatively. ? At her 2nd post op visit, on 06/23/2019, she had complaints of right jaw pain, a throbbing headache in her posterior, dorsal, and frontal regions: better with staying still, worse with motion. She continued with right eye blurry vision. A dexamethasone course / taper was re-ordered to start after her URI had resolved. Topiramate was refilled. Discussion regarding Gamma Knife vs balloon compression was had. Shortly after that visit, her PCP referred her to Pain Management. Current Outpatient Medications Medication Sig Dispense Refill - topiramate (TOPAMAX) 50 mg tablet Take 1 tablet by mouth twice daily. 60 tablet 2 - topiramate (TOPAMAX) 25 mg tablet Take 1 tablet by mouth twice daily. 60 tablet 2 - dexamethasone (DECADRON) 2 mg tablet Take 2 tablets by mouth twice daily with meals for 7 days, THEN 1 tablet three times daily for 7 days, THEN 1 tablet twice daily with meals for 7 days, THEN 1 tablet daily with breakfast for 7 days. 70 tablet 0 - benzonatate (TESSALON PERLE) 100 mg capsule Take 2 capsules by mouth three times daily as needed. 42 capsule 0 - topiramate (TOPAMAX) 25 mg tablet Take 3 tablets by mouth twice daily. 180 tablet 0 - acetaminophen (TYLENOL) 325 mg tablet Take 650 mg by mouth every 6 hours as needed. - levothyroxine (SYNTHROID) 75 mcg tablet Take 1 tablet by mouth once daily. 90 tablet 3 - atenolol (TENORMIN) 50 mg tablet Take 1 tablet by mouth once daily. 90 tablet 3 - montelukast (SINGULAIR) 10 mg tablet Take 1 tablet by mouth daily at bedtime. (Patient not taking: Reported on 06/23/2019 ) 90 tablet 3 - Ibuprofen 200 mg cap Take by mouth as needed. ON HOLD No current facility-administered medications for this visit. Objective Review of Systems Constitutional: Positive for activity change. Negative for chills, diaphoresis and fever. HENT: Positive for hearing loss. Negative for dental problem, postnasal drip, sinus pressure, sinus pain and trouble swallowing. Hearing aid intact in right ear. No new hearing loss per patient. Right Jaw pain from the trigeminal nerve Eyes: Positive for visual disturbance. Negative for pain. Visual disturbance is stable per patient Respiratory: Positive for cough. Negative for apnea, chest tightness and shortness of breath. Cardiovascular: Negative for chest pain and leg swelling. Gastrointestinal: Negative for abdominal pain. Genitourinary: Negative for difficulty urinating. Skin: Negative for color change, rash and wound. Neurological: Negative for dizziness, tremors, facial asymmetry, weakness, light-headedness, numbness and headaches. Hematological: Does not bruise/bleed easily. Psychiatric/Behavioral: Negative for agitation and behavioral problems. The patient is not nervous/anxious. Physical Exam Constitutional: She is well-developed, well-nourished, and in no distress. HENT: Head: Normocephalic and atraumatic. Pulmonary/Chest: Effort normal. Neurological: She is alert. Skin: Skin is warm and dry. Psychiatric: Her speech is normal. Mood, memory, affect and judgment normal. Neurological Exam Mental Status Alert. Oriented to person, place, time and situation. Speech is normal. Language is fluent with no aphasia. Motor Normal muscle bulk throughout. Normal muscle tone. Gait Casual gait is normal including stance, stride, and arm swing. WOUND ASSESSMENT: Well healed incision. Soft swelling approximately 3 cm wide x 5 cm in length with protrusion height of 2 cm. No erythema, no warmth, no drainage. Non-tender to palpation. Reviewed post operative CT brain and MRI brain with patient and her daughter. IMP: Kate Oreilly is a 74 year old female who is 2 months post op decompression of trigeminal nerve. She currently has swelling at the incision. Doubt infection (no signs/symptoms), doubt CSF leak (no signs/symptoms); likely a seroma given degree of swelling and lack of constitutional symptomology PLAN: 1. Imaging: CT Brain WO IVCON to evaluate the region of swelling along with bone imaging to determine if there is cerebral source of swelling. If CT is not helpful, can consider MRI. MRI 06/23/2019 was done 3 weeks before onset of symptoms. 2. Okay to put ice to site. No heat to site. 3. Follow up with Dr. Juárez in [address] as above. Discussed above with Ms. Orielly and her daughter, both of whom verbalize understanding and agreement with plan. All questions were answered with their verbalized satisfaction with responses. Saeid Toro APRN, VALUE STREAM MANAGER Neurosurgery Nurse Practitioner [facility] CNOVon 06-23-2019 CNOV Office Visit ([facility] ) -- KATE OREILLY ([id number]) 1945 F Date Time Provider Department 06/23/19 3:15 PM MILLI JUÁREZ During your visit today, we recorded the following information about you: Pulse Respiration Blood pressure Weight 79/minute 16/minute 140/80 93 kg Height 1.702 m Milli Juárez MD 06/28/2019 5:39 PM Signed NEUROSURGERY POST-OP NOTE Milli Juárez MD Date of visit: June 23, 2019 Patient Name: Ms.Dorothy Paty Oreilly Date of : 1945 Current Age: [age] year old Sex: female MRN/E# [id number] Last Office Visit: 06/05/2019 SURGERY: right revision microvascular decompression of trigeminal nerve, retrosigmoid approach on 05/12/19. Pre-Surgical Symptoms: right jaw pain > right neck pain; neck pain radiates to right shoulder without numbness or tingling; right jaw pain with continuous numbness and tingling Patient is having their 2nd post operative visit. At her 1st post op appointment on 05/22/19, she noted improvement in her right jaw pain. She has complaints of right jaw pain with intermittent numbness. Options including repeat MRI for evaluation for gamma knife again vs balloon compression vs glycerol injections if pain becomes bad enough that she would want additional treatment were discussed with her. She contacted the office on 06/01/19, with complaints of pain in her right jaw, right ear, and right side of her nose. At that time, she was Topamax 2 tablets BID, it was recommended that she take 3 tablets BID. She was then to call on 06/05/19 to evaluate how she was doing. When she contacted the office on 06/05/19, she stated the pain slightly decreased, but it was still there. She also noted right eye blurred vision x10 days. She was told to proceed with her MRI and follow up once completed. Today she has complaints of right jaw pain, a throbbing headache in her posterior, dorsal, and frontal region: better with staying still, worse with motion. She continues to have right eye blurry vision. Incision: Dry and intact, without redness Current Outpatient Medications Medication Sig Dispense Refill - dexamethasone (DECADRON) 1 mg tablet 2 tabs BID x 3 days, 1 tab BID x 3 days, 1 tab daily x 3 days, 1/2 tab daily x 6 days, then stop. 24 tablet 0 - topiramate (TOPAMAX) 25 mg tablet Take 3 tablets by mouth twice daily. 180 tablet 0 - acetaminophen (TYLENOL) 325 mg tablet Take 650 mg by mouth every 6 hours as needed. - levothyroxine (SYNTHROID) 75 mcg tablet Take 1 tablet by mouth once daily. 90 tablet 3 - atenolol (TENORMIN) 50 mg tablet Take 1 tablet by mouth once daily. 90 tablet 3 - montelukast (SINGULAIR) 10 mg tablet Take 1 tablet by mouth daily at bedtime. 90 tablet 3 - Ibuprofen 200 mg cap Take by mouth as needed. ON HOLD No current facility-administered medications for this visit. Objective Review of Systems Constitutional: Positive for chills. Negative for fever and unexpected weight change. HENT: Positive for congestion and sinus pressure. Negative for ear discharge and ear pain. Eyes: Negative for pain and discharge. Respiratory: Positive for cough. Negative for shortness of breath and wheezing. Cardiovascular: Negative for chest pain, palpitations and leg swelling. Gastrointestinal: Negative for constipation, diarrhea and nausea. Endocrine: Negative for cold intolerance and heat intolerance. Genitourinary: Negative for difficulty urinating, frequency and urgency. Musculoskeletal: Negative for back pain, gait problem and neck pain. Skin: Negative for rash and wound. Allergic/Immunologic: Negative for environmental allergies and food allergies. Neurological: Positive for dizziness, weakness and headaches. Negative for numbness. Hematological: Does not bruise/bleed easily. Psychiatric/Behavioral: Negative for agitation. The patient is not nervous/anxious. Physical Exam Constitutional: She is oriented to person, place, and time and well-developed, well-nourished, and in no distress. HENT: Bilateral hearing aids. Eyes: EOM are normal. No nystagmus. Neck: Normal range of motion. Pulmonary/Chest: Effort normal. Musculoskeletal: Normal range of motion. Neurological: She is alert and oriented to person, place, and time. Skin: Skin is warm and dry. Psychiatric: Her speech is normal. Affect normal. Neurological Exam Mental Status Alert. Recent and remote memory are intact. Speech is normal. Language is fluent with no aphasia. Attention and concentration are normal. Fund of knowledge is appropriate for level of education. Cranial Nerves CN II: Right visual acuity: counts fingers. Left visual acuity: counts fingers. CN III, IV, : Extraocular movements intact bilaterally. No nystagmus. Right pupil: 3 mm. Round. Reactive to light. Left pupil: 3 mm. Round. Reactive to light. CN V: Right: Facial sensation is normal. Left: Facial sensation is normal on the left. CN VII: Right: There is no facial weakness. Left: There is no facial weakness. CN VIII: Bilateral hearing aids.. CN XII: Tongue midline without atrophy or fasciculations. Difficulty swallowing at times. Pain with chewing at times. Sensory Light touch is normal in upper and lower extremities. Gait Casual gait is normal including stance, stride, and arm swing. WOUND ASSESSMENT: Dry and intact, without redness PAIN EVALUATION No data found in the last 1 encounters. MRI brain w/wo performed on 06/23/2019. Findings are noted as: denilson in place around trigeminal nerve, no other changes 74 y/o female s/p right revision MVD for trigeminal neuralgia. - still having pain that has worsened since decadron taper - restart decadron after URI as passed - refill topamax - will discuss case with Dr. Harrison regarding if gamma knife is potential based on new MRI. If not, will discuss case with Dr. Parekh regarding safety of balloon compression given large venous complex overlying nerve. Milli Juárez MD Neurosurgery June 28, 2019 5:39 PM Referring Provider: KENN BEAUCHAMP [[id number]] Allergies As of Date: 06/23/2019 Noted Allergy Reaction AMOXICILLIN 03/30/2005 2 - Rash CARBAMAZEPINE 11/10/2018 2 - Rash CODEINE 05/20/2011 11 - Vomiting PERCOCET (OXYCODONE-ACETAMINOPHEN)0 09/15/2010 11 - Vomiting TEGRETOL (CARBAMAZEPINE ANALOGUES)04/17/2009 11 - Vomiting Comments: Dizziness, couldn't see straight Skin reaction when went in sun TRAMADOL 09/15/2010 11 - Vomiting VICODIN (HYDROCODONE-ACETAMINOPHE* 09/15/2010 11 - Vomiting VIOXX (ROFECOXIB) 03/30/2005 2 - Rash DEMEROL (MEPERIDINE HCL) 03/30/2005 5 - Intolerance NEURONTIN (GABAPENTIN) 04/17/2009 5 - Intolerance Comments: Dizziness, feeling like I couldn't work TOPAMAX (TOPIRAMATE) 05/22/2019 5 - Intolerance Comments: Flushed, red skin Date Reviewed: 06/23/2019 Reviewed by: Damon Silverio - Fully Assessed Reason for Visit: Follow Up [171] Cmt: Follow up MRI Primary Visit Diagnosis:Meningioma (HCC) [D32.9] Other Visit Diagnosis:Neck pain [M54.2] Order(s):topiramate (TOPAMAX) 50 mg tabletTake 1 tablet by mouth twice daily.Disp: 60 tabletRfl: 2 topiramate (TOPAMAX) 25 mg tabletTake 1 tablet by mouth twice daily.Disp: 60 tabletRfl: 2 dexamethasone (DECADRON) 2 mg tabletTake 2 tablets by mouth twice daily with meals for 7 days, THEN 1 tablet three times daily for 7 days, THEN 1 tablet twice daily with meals for 7 days, THEN 1 tablet daily with breakfast for 7 days.Disp: 70 tabletRfl: 0 Prescriptions as of 06/23/2019 Sig: BENZONATATE 100 MG CAPSULE Take 2 capsules by mouth thre* ACETAMINOPHEN 325 MG TABLET Take 650 mg by mouth every 6 * LEVOTHYROXINE 75 MCG TABLET Take 1 tablet by mouth once d* ATENOLOL 50 MG TABLET Take 1 tablet by mouth once d* TOPIRAMATE 50 MG TABLET Take 1 tablet by mouth twice * TOPIRAMATE 25 MG TABLET Take 1 tablet by mouth twice * DEXAMETHASONE 2 MG TABLET Take 2 tablets by mouth twice* TOPIRAMATE 25 MG TABLET Take 3 tablets by mouth twice* MONTELUKAST 10 MG TABLET Take 1 tablet by mouth daily * Patient not taking: Reported on 06/23/2019 IBUPROFEN 200 MG CAPSULE Take by mouth as needed. ON H* Medication notes this encounter TOPIRAMATE 25 MG TABLET >> Damon Silverio MA 06/23/2019 3:44 PM >> DAMON SILVERIO MA WedJun 23, 2019 3:44 PM Refill needed Problem List As Of Date 06/23/2019 Noted Resolved CHRONIC SINUSITIS NEC [J32.8] 05/18/2005 Trigeminal neuralgia [G50.0] 05/18/2005 More... FAMILY HISTORY OF GI NEOPLASM [Z80.0] 10/10/2007 Hyperlipidemia, mixed [E78.2] 10/10/2007 Hypothyroidism [E03.9] 10/11/2007 More... SLEEP APNEA NOS [G47.30] 12/03/2008 Vitamin D deficiency [E55.9] 03/21/2010 Meningioma [D32.9] 07/14/2010 Essential hypertension, benign [I10] 08/11/2010 More... Low back pain [M54.5] 11/13/2011 Obesity, Class I, BMI 30-34.9 [E66.9] 05/15/2019 Prescriptions ordered this encounter Disp Refills Start End TOPIRAMATE 50 MG TABLET 60 t* 2 06/23/2019 09/21/2019 Route: ORAL Sig: Take 1 tablet by mouth twice daily. TOPIRAMATE 25 MG TABLET 60 t* 2 06/23/2019 09/21/2019 Route: ORAL Sig: Take 1 tablet by mouth twice daily. DEXAMETHASONE 2 MG TABLET 70 t* 0 06/23/2019 07/21/2019 Route: ORAL Sig: Take 2 tablets by mouth twice daily with meals for 7 days, THEN 1 tablet three times daily for 7 days, THEN 1 tablet twice daily with meals for 7 days, THEN 1 tablet daily with breakfast for 7 days. Medications Discontinued During This Encounter dexamethasone (DECADRON) 1 mg tablet 24 t* 0 05/15/2019 06/23/2019 Si tabs BID x 3 days, 1 tab BID x 3 days, 1 tab daily x 3 days, 1/2 tab daily x 6 days, then stop. Disc: Course of therapy completed Encounter Status:Closed by MILLI JUÁREZ MD on 06/28/19 [facility] MRI BRAIN WO/W IVCONon 06-23 MRI BRAIN WO/W IVCON * * *Final Report* * * DATE OF EXAM: Jun 23 2019 3:26PM A1M 0295 - MRI BRAIN WO/W IVCON / PROCEDURE REASON: Benign neoplasm of brain, unspecified brain region (HCC) * * * * Physician Interpretation * * * * EXAMINATION: MRI BRAIN WO/W IVCON CLINICAL HISTORY: Status post right trigeminal nerve decompression. Persistent pain TECHNIQUE: Routine brain MRI protocol without and with contrast including diffusion images. MQ: [id number] Contrast: 19cc mL Dotarem IV COMPARISON: Head CT 05/10/2019. MRI outside hospital 2018. RESULT: Postoperative change: There are interval postoperative findings related to prior rectosigmoid approach for microvascular decompression of trigeminal nerve. There are interval postoperative findings related to a 17 x 7 by 6 mm mm (AP, TV) oval T2 hypointense focus of enhancement in the region of the right trigeminal nerve, which is increased in size when compared to most recent prior MRI measuring 16 x 5 x 5, likely representing a interval placement of the Denilson material, however superimposed postoperative change cannot be excluded. There is no evidence of hemorrhage or fluid collection in this region. There is unchanged right cerebellar extra-axial fluid collection. 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 There is no evidence of large or chronic meningioma. Acute Change: There is no evidence of restricted diffusion to suggest an acute infarct. Hemorrhage: No evidence of prior parenchymal hemorrhage on the gradient echo images. Mass Lesion/ Mass Effect: No evidence of an intracranial mass or extra-axial fluid collection. No abnormal parenchymal or leptomeningeal enhancement is noted following contrast administration. No significant mass effect. Chronic Change: Scattered punctate foci of increased T2 and FLAIR signal are noted in the supratentorial white matter which is a nonspecific finding, but likely represents minimal chronic microvascular ischemia. Parenchyma: There is mild generalized parenchymal volume loss. The brain parenchyma is otherwise within normal limits of signal intensity and morphology. Ventricles: Ventriculomegaly corresponds to the degree of parenchymal volume loss. Skull Base: Hypothalamic and pituitary region are grossly normal. Craniocervical junction is normal. No significant marrow replacement process. Other: The visualized paranasal sinuses and mastoid air cells are clear. There are bilateral lens implants. The orbits and extracranial soft tissues are unremarkable. IMPRESSION: Interval postoperative findings related to prior rectosigmoid approach for microvascular decompression of trigeminal nerve. Interval postoperative findings related to 7 mm oval focus of enhancement in the region of the right trigeminal nerve, which is increased in size when compared to most recent prior MRI measuring 16, likely representing a interval placement of the Denilson material, however superimposed postoperative change cannot be excluded. No evidence of hemorrhage or fluid collections region. Curing Machine Operator: [facility] Transcribe Date/Time: Jun 25 2019 8:12P Dictated by : ZENON PAREKH MD This examination was interpreted and the report reviewed and electronically signed by: ZENON PAREKH MD on Jun 25 2019 8:31PM EST Normal [facility] PROGRESSon 06-23-2019 PROGRESS HNO ID: [id number] Author: Milli Juárez Service: ? Author Type: Physician Type: Progress Notes Filed: 06/28/2019 5:39 PM Note Text: NEUROSURGERY POST-OP NOTE Milli Juárez MD Date of visit: June 23, 2019 Patient Name: Ms.Dorothy Paty Oreilly Date of : 1945 Current Age: [age] year old Sex: female MRN/E# [id number] Last Office Visit: 06/05/2019 SURGERY: right revision microvascular decompression of trigeminal nerve, retrosigmoid approach on 05/12/19. Pre-Surgical Symptoms: right jaw pain > right neck pain; neck pain radiates to right shoulder without numbness or tingling; right jaw pain with continuous numbness and tingling Patient is having their 2nd post operative visit. At her 1st post op appointment on 05/22/19, she noted improvement in her right jaw pain. She has complaints of right jaw pain with intermittent numbness. Options including repeat MRI for evaluation for gamma knife again vs balloon compression vs glycerol injections if pain becomes bad enough that she would want additional treatment were discussed with her. She contacted the office on 06/01/19, with complaints of pain in her right jaw, right ear, and right side of her nose. At that time, she was Topamax 2 tablets BID, it was recommended that she take 3 tablets BID. She was then to call on 06/05/19 to evaluate how she was doing. When she contacted the office on 06/05/19, she stated the pain slightly decreased, but it was still there. She also noted right eye blurred vision x10 days. She was told to proceed with her MRI and follow up once completed. Today she has complaints of right jaw pain, a throbbing headache in her posterior, dorsal, and frontal region: better with staying still, worse with motion. She continues to have right eye blurry vision. Incision: Dry and intact, without redness Current Outpatient Medications Medication Sig Dispense Refill - dexamethasone (DECADRON) 1 mg tablet 2 tabs BID x 3 days, 1 tab BID x 3 days, 1 tab daily x 3 days, 1/2 tab daily x 6 days, then stop. 24 tablet 0 - topiramate (TOPAMAX) 25 mg tablet Take 3 tablets by mouth twice daily. 180 tablet 0 - acetaminophen (TYLENOL) 325 mg tablet Take 650 mg by mouth every 6 hours as needed. - levothyroxine (SYNTHROID) 75 mcg tablet Take 1 tablet by mouth once daily. 90 tablet 3 - atenolol (TENORMIN) 50 mg tablet Take 1 tablet by mouth once daily. 90 tablet 3 - montelukast (SINGULAIR) 10 mg tablet Take 1 tablet by mouth daily at bedtime. 90 tablet 3 - Ibuprofen 200 mg cap Take by mouth as needed. ON HOLD No current facility-administered medications for this visit. Objective Review of Systems Constitutional: Positive for chills. Negative for fever and unexpected weight change. HENT: Positive for congestion and sinus pressure. Negative for ear discharge and ear pain. Eyes: Negative for pain and discharge. Respiratory: Positive for cough. Negative for shortness of breath and wheezing. Cardiovascular: Negative for chest pain, palpitations and leg swelling. Gastrointestinal: Negative for constipation, diarrhea and nausea. Endocrine: Negative for cold intolerance and heat intolerance. Genitourinary: Negative for difficulty urinating, frequency and urgency. Musculoskeletal: Negative for back pain, gait problem and neck pain. Skin: Negative for rash and wound. Allergic/Immunologic: Negative for environmental allergies and food allergies. Neurological: Positive for dizziness, weakness and headaches. Negative for numbness. Hematological: Does not bruise/bleed easily. Psychiatric/Behavioral: Negative for agitation. The patient is not nervous/anxious. Physical Exam Constitutional: She is oriented to person, place, and time and well-developed, well-nourished, and in no distress. HENT: Bilateral hearing aids. Eyes: EOM are normal. No nystagmus. Neck: Normal range of motion. Pulmonary/Chest: Effort normal. Musculoskeletal: Normal range of motion. Neurological: She is alert and oriented to person, place, and time. Skin: Skin is warm and dry. Psychiatric: Her speech is normal. Affect normal. Neurological Exam Mental Status Alert. Recent and remote memory are intact. Speech is normal. Language is fluent with no aphasia. Attention and concentration are normal. Fund of knowledge is appropriate for level of education. Cranial Nerves CN II: Right visual acuity: counts fingers. Left visual acuity: counts fingers. CN III, IV, : Extraocular movements intact bilaterally. No nystagmus. Right pupil: 3 mm. Round. Reactive to light. Left pupil: 3 mm. Round. Reactive to light. CN V: Right: Facial sensation is normal. Left: Facial sensation is normal on the left. CN VII: Right: There is no facial weakness. Left: There is no facial weakness. CN VIII: Bilateral hearing aids.. CN XII: Tongue midline without atrophy or fasciculations. Difficulty swallowing at times. Pain with chewing at times. Sensory Light touch is normal in upper and lower extremities. Gait Casual gait is normal including stance, stride, and arm swing. WOUND ASSESSMENT: Dry and intact, without redness PAIN EVALUATION No data found in the last 1 encounters. MRI brain w/wo performed on 06/23/2019. Findings are noted as: denilson in place around trigeminal nerve, no other changes 74 y/o female s/p right revision MVD for trigeminal neuralgia. - still having pain that has worsened since decadron taper - restart decadron after URI as passed - refill topamax - will discuss case with Dr. Harrison regarding if gamma knife is potential based on new MRI. If not, will discuss case with Dr. Parekh regarding safety of balloon compression given large venous complex overlying nerve. Milli Juárez MD Neurosurgery June 28, 2019 5:39 PM Normal [facility] CNOVon 05-22-2019 CNOV Office Visit (BEN ) -- KATE OREILLY ([id number]) 1945 F Date Time Provider Department 05/22/19 9:30 AM MILLI JUÁREZ During your visit today, we recorded the following information about you: Mlili Juárez MD 05/22/2019 10:36 AM Signed NEUROSURGERY POST-OP NOTE Milli Juárez MD Date of visit: May 22, 2019 Patient Name: Ms.Dorothy Paty Oreilly Date of : 1945 Current Age: [age] year old Sex: female MRN/E# [id number] Last Office Visit: 04/17/2019 SURGERY: right revision microvascular decompression of trigeminal nerve, retrosigmoid approach on 05/12/19. Pre-Surgical Symptoms: right jaw pain > right neck pain; neck pain radiates to right shoulder without numbness or tingling; right jaw pain with continuous numbness and tingling Patient is having their 1st post operative visit. Patient reports improvement in right jaw pain since surgery with no improvement since she left hospital after surgery. Patient c/o right jaw pain with numbness at times. Denies neck pain or tingling. Patient feels that surgery was beneficial. Incision: Dry and intact, without redness Current Outpatient Medications Medication Sig Dispense Refill - acetaminophen (TYLENOL) 325 mg tablet Take 650 mg by mouth every 6 hours as needed. - topiramate (TOPAMAX) 25 mg tablet Take 50 mg by mouth twice daily. 3 - levothyroxine (SYNTHROID) 75 mcg tablet Take 1 tablet by mouth once daily. 90 tablet 3 - atenolol (TENORMIN) 50 mg tablet Take 1 tablet by mouth once daily. 90 tablet 3 - montelukast (SINGULAIR) 10 mg tablet Take 1 tablet by mouth daily at bedtime. 90 tablet 3 - Ibuprofen 200 mg cap Take by mouth as needed. ON HOLD No current facility-administered medications for this visit. Objective Review of Systems Constitutional: Negative for chills, fatigue, fever and unexpected weight change. HENT: Negative for congestion, ear discharge, ear pain and sinus pressure. Eyes: Negative for discharge and itching. Respiratory: Negative for cough, shortness of breath and wheezing. Cardiovascular: Negative for chest pain, palpitations and leg swelling. Gastrointestinal: Negative for constipation, diarrhea and nausea. Endocrine: Negative for cold intolerance and heat intolerance. Genitourinary: Negative for dysuria, frequency and urgency. Musculoskeletal: Negative for back pain, gait problem and neck pain. Allergic/Immunologic: Negative for environmental allergies and food allergies. Neurological: Negative for dizziness, weakness and numbness. Hematological: Does not bruise/bleed easily. Psychiatric/Behavioral: Negative for agitation. The patient is not nervous/anxious. Physical Exam Constitutional: She is oriented to person, place, and time and well-developed, well-nourished, and in no distress. HENT: Head: Normocephalic. Eyes: Pupils are equal, round, and reactive to light. EOM are normal. No nystagmus. Neck: Normal range of motion. Pulmonary/Chest: Effort normal. Abdominal: Soft. Musculoskeletal: Normal range of motion. Neurological: She is alert and oriented to person, place, and time. Gait normal. Skin: Skin is warm and dry. Psychiatric: Her speech is normal. Affect normal. Neurological Exam Mental Status Alert. Recent and remote memory are intact. Speech is normal. Language is fluent with no aphasia. Attention and concentration are normal. Cranial Nerves CN II: Visual acuity is normal. CN III, IV, : Extraocular movements intact bilaterally. No nystagmus. Pupils equal round and reactive to light bilaterally. CN V: Right: Facial sensation is normal. Left: Facial sensation is normal on the left. CN VII: Right: There is no facial weakness. Left: There is no facial weakness. CN VIII: Hearing is normal. CN IX, X: Palate elevates symmetrically CN XI: Shoulder shrug strength is normal. CN XII: Tongue midline without atrophy or fasciculations. Difficulty swallowing at times. Pain with chewing at times. Sensory Light touch is normal in upper and lower extremities. Coordination Right: Gknzwm-hw-gwdy normal. Left: Xrwgyt-of-srtd normal. Gait Casual gait is normal including stance, stride, and arm swing. Normal gait. WOUND ASSESSMENT: Incision healing PAIN EVALUATION No data found in the last 1 encounters. 74 y/o female who presents 2 weeks after her revision right MVD who has improvement in her overall pain but still having brief instances of pain in her V3 distribution. - continue decadron taper - discussed options including repeat MRI for evaluation for gamma knife again vs balloon compression vs glycerol injections if pain becomes bad enough that she would want additional treatment. - unfortunately given the size of the venous complex on the nerve, cutting the nerve fibers was too risky to cause veinous bleeding by Dr. Harrison and my evaluation during surgery. Milli Juárez MD Neurosurgery May 22, 2019 10:34 AM Referring Provider: MILLI JUÁREZ [[id number]] Allergies As of Date: 05/22/2019 Noted Allergy Reaction AMOXICILLIN 03/30/2005 2 - Rash CARBAMAZEPINE 11/10/2018 2 - Rash CODEINE 05/20/2011 11 - Vomiting PERCOCET (OXYCODONE-ACETAMINOPHEN)0 09/15/2010 11 - Vomiting TEGRETOL (CARBAMAZEPINE ANALOGUES)04/17/2009 11 - Vomiting Comments: Dizziness, couldn't see straight Skin reaction when went in sun TRAMADOL 09/15/2010 11 - Vomiting VICODIN (HYDROCODONE-ACETAMINOPHE* 09/15/2010 11 - Vomiting VIOXX (ROFECOXIB) 03/30/2005 2 - Rash DEMEROL (MEPERIDINE HCL) 03/30/2005 5 - Intolerance NEURONTIN (GABAPENTIN) 04/17/2009 5 - Intolerance Comments: Dizziness, feeling like I couldn't work TOPAMAX (TOPIRAMATE) 05/22/2019 5 - Intolerance Comments: Flushed, red skin Date Reviewed: 05/22/2019 Reviewed by: Martha Ayala (Rma) - Fully Assessed Reason for Visit: Post-Op Visit [1236] Cmt: 1st post op Primary Visit Diagnosis:Meningioma (HCC) [D32.9] Other Visit Diagnosis:Neck pain [M54.2] Prescriptions as of 05/22/2019 Sig: DEXAMETHASONE 1 MG TABLET 2 tabs BID x 3 days, 1 tab BI* TOPIRAMATE 25 MG TABLET Take 3 tablets by mouth twice* ACETAMINOPHEN 325 MG TABLET Take 650 mg by mouth every 6 * LEVOTHYROXINE 75 MCG TABLET Take 1 tablet by mouth once d* ATENOLOL 50 MG TABLET Take 1 tablet by mouth once d* MONTELUKAST 10 MG TABLET Take 1 tablet by mouth daily * IBUPROFEN 200 MG CAPSULE Take by mouth as needed. ON H* X TOPIRAMATE 25 MG TABLET Take 50 mg by mouth twice jacob* Problem List As Of Date 05/22/2019 Noted Resolved CHRONIC SINUSITIS NEC [J32.8] 05/18/2005 Trigeminal neuralgia [G50.0] 05/18/2005 More... FAMILY HISTORY OF GI NEOPLASM [Z80.0] 10/10/2007 Hyperlipidemia, mixed [E78.2] 10/10/2007 Hypothyroidism [E03.9] 10/11/2007 More... SLEEP APNEA NOS [G47.30] 12/03/2008 Vitamin D deficiency [E55.9] 03/21/2010 Meningioma [D32.9] 07/14/2010 Essential hypertension, benign [I10] 08/11/2010 More... Low back pain [M54.5] 11/13/2011 Obesity, Class I, BMI 30-34.9 [E66.9] 05/15/2019 Encounter Status:Closed by MILLI JUÁREZ MD on 05/22/19 [facility] PROGRESSon 05-22-2019 PROGRESS HNO ID: [id number] Author: Milli Juárez Service: ? Author Type: Physician Type: Progress Notes Filed: 05/22/2019 10:36 AM Note Text: NEUROSURGERY POST-OP NOTE Milli Juárez MD Date of visit: May 22, 2019 Patient Name: Ms.Dorothy Paty Oreilly Date of : 1945 Current Age: [age] year old Sex: female MRN/E# [id number] Last Office Visit: 04/17/2019 SURGERY: right revision microvascular decompression of trigeminal nerve, retrosigmoid approach on 05/12/19. Pre-Surgical Symptoms: right jaw pain > right neck pain; neck pain radiates to right shoulder without numbness or tingling; right jaw pain with continuous numbness and tingling Patient is having their 1st post operative visit. Patient reports improvement in right jaw pain since surgery with no improvement since she left hospital after surgery. Patient c/o right jaw pain with numbness at times. Denies neck pain or tingling. Patient feels that surgery was beneficial. Incision: Dry and intact, without redness Current Outpatient Medications Medication Sig Dispense Refill - acetaminophen (TYLENOL) 325 mg tablet Take 650 mg by mouth every 6 hours as needed. - topiramate (TOPAMAX) 25 mg tablet Take 50 mg by mouth twice daily. 3 - levothyroxine (SYNTHROID) 75 mcg tablet Take 1 tablet by mouth once daily. 90 tablet 3 - atenolol (TENORMIN) 50 mg tablet Take 1 tablet by mouth once daily. 90 tablet 3 - montelukast (SINGULAIR) 10 mg tablet Take 1 tablet by mouth daily at bedtime. 90 tablet 3 - Ibuprofen 200 mg cap Take by mouth as needed. ON HOLD No current facility-administered medications for this visit. Objective Review of Systems Constitutional: Negative for chills, fatigue, fever and unexpected weight change. HENT: Negative for congestion, ear discharge, ear pain and sinus pressure. Eyes: Negative for discharge and itching. Respiratory: Negative for cough, shortness of breath and wheezing. Cardiovascular: Negative for chest pain, palpitations and leg swelling. Gastrointestinal: Negative for constipation, diarrhea and nausea. Endocrine: Negative for cold intolerance and heat intolerance. Genitourinary: Negative for dysuria, frequency and urgency. Musculoskeletal: Negative for back pain, gait problem and neck pain. Allergic/Immunologic: Negative for environmental allergies and food allergies. Neurological: Negative for dizziness, weakness and numbness. Hematological: Does not bruise/bleed easily. Psychiatric/Behavioral: Negative for agitation. The patient is not nervous/anxious. Physical Exam Constitutional: She is oriented to person, place, and time and well-developed, well-nourished, and in no distress. HENT: Head: Normocephalic. Eyes: Pupils are equal, round, and reactive to light. EOM are normal. No nystagmus. Neck: Normal range of motion. Pulmonary/Chest: Effort normal. Abdominal: Soft. Musculoskeletal: Normal range of motion. Neurological: She is alert and oriented to person, place, and time. Gait normal. Skin: Skin is warm and dry. Psychiatric: Her speech is normal. Affect normal. Neurological Exam Mental Status Alert. Recent and remote memory are intact. Speech is normal. Language is fluent with no aphasia. Attention and concentration are normal. Cranial Nerves CN II: Visual acuity is normal. CN III, IV, : Extraocular movements intact bilaterally. No nystagmus. Pupils equal round and reactive to light bilaterally. CN V: Right: Facial sensation is normal. Left: Facial sensation is normal on the left. CN VII: Right: There is no facial weakness. Left: There is no facial weakness. CN VIII: Hearing is normal. CN IX, X: Palate elevates symmetrically CN XI: Shoulder shrug strength is normal. CN XII: Tongue midline without atrophy or fasciculations. Difficulty swallowing at times. Pain with chewing at times. Sensory Light touch is normal in upper and lower extremities. Coordination Right: Meihdp-am-oqla normal. Left: Btnvsc-cl-zbui normal. Gait Casual gait is normal including stance, stride, and arm swing. Normal gait. WOUND ASSESSMENT: Incision healing PAIN EVALUATION No data found in the last 1 encounters. 74 y/o female who presents 2 weeks after her revision right MVD who has improvement in her overall pain but still having brief instances of pain in her V3 distribution. - continue decadron taper - discussed options including repeat MRI for evaluation for gamma knife again vs balloon compression vs glycerol injections if pain becomes bad enough that she would want additional treatment. - unfortunately given the size of the venous complex on the nerve, cutting the nerve fibers was too risky to cause veinous bleeding by Dr. Harrison and my evaluation during surgery. Milli Juárez MD Neurosurgery May 22, 2019 10:34 AM Normal [facility] CASE MANAGEMon 05-15-2019 CASE MANAGEM HNO ID: [id number] Author: Caty Iyer Service: Care Management Author Type: ? Type: Care Mgt Progress Note Filed: 05/15/2019 3:27 PM Note Text: CARE MANAGEMENT PROGRESS NOTE SERVICE DATE: 05/15/2019 SERVICE TIME: 1400 LOS: 3 days IM letter given to patient on [id number]. SIGNATURE: Caty Iyer PATIENT NAME: Kate Oreilly DATE: May 15, 2019 TIME: 3:26 PM PAGER/CONTACT #: [phone] Eliana [facility] CONSULT PROGon 05-15-2019 CONSULT PROG HNO ID: [id number] Author: Alissa Parikh) Zulma Service: Neurosurgery Author Type: Physician Exercise Equipment Repair Technician Type: Consult Progress Note Filed: 05/15/2019 3:43 PM Note Text: PROGRESS NOTE NEUROSURGERY SERVICE DATE: 05/15/2019 SERVICE TIME: 9:40AM Subjective INTERVAL HPI Ms. Oreilly is sitting comfortably in bed. She notes that she is ambulating, admits to having a good appetite, and passing flatus. She denies having had a BM yet and notes that she has not taken her colace this morning. She notes some mild R facial pain but she is feeling overall better and would like to go home. She has no new concerns or complaints today. Current Facility-Administered Medications Medication Dose Route Frequency - montelukast 10 mg tab(s) (SINGULAIR) 10 mg ORAL AT BEDTIME - levothyroxine 75 mcg tab(s) (SYNTHROID) 75 mcg ORAL DAILY - atenolol 50 mg tab(s) (TENORMIN) 50 mg ORAL DAILY - NaCl 0.9% 3-5 mL 3-5 mL INTRAVENOUS q 12 H - famotidine 20 mg tab(s) (PEPCID) 20 mg ORAL/FEEDING TUBE BID - docusate sodium 100 mg cap(s) (COLACE) 100 mg ORAL BID - bisacodyl 10 mg suppository (DULCOLAX) 10 mg RECTAL DAILY PRN - acetaminophen 325-650 mg tab(s) (TYLENOL) 325-650 mg ORAL q 4 H PRN - dexamethasone 4 mg tab(s) (DECADRON) 4 mg ORAL q 6 H - ondansetron (PF) 4 mg injection (ZOFRAN) 4 mg INTRAVENOUS q 6 H PRN - hydrALAZINE 5-10 mg injection (APRESOLINE) 5-10 mg INTRAVENOUS q 1 H PRN - pneumococcal vaccine 23 VALENT 0.5 mL injection (PNEUMOVAX) 0.5 mL INTRAMUSCULAR ONCE (IMMUNIZATION) - ketorolac 15 mg injection (TORADOL) 15 mg INTRAVENOUS q 6 H PRN - pantoprazole DR 20 mg tab(s) (PROTONIX) 20 mg ORAL DAILY (6 AM) - topiramate 75 mg tab(s) (TOPAMAX) 75 mg ORAL BID Objective Physical Exam Performed: General - NAD, calm, pleasant Resp - Even, unlabored, good diaphragmatic excursion Skin - Incision c/d/i, stitches intact, ecchymosis on R posterior neck, abrasion above L eyebrow Neuro - AANDOx3, PERRLA, makes eye contact, speech clear, cranial nerves 2-12 normal and intact, strength 5/5 BUE and BLE and equal, sensation grossly intact [place] removed from above L eyebrow. Dressing removed, stitches c/d/i. VITAL SIGNS 24 HOUR REVIEW: Patient Vitals for the past 24 hrs: BP Temp Temp src Pulse Resp SpO2 05/15/19 1136 116/64 36.8 ?C (98.2 ?F) Oral 62 18 98 % 05/15/19 0750 128/70 36.3 ?C (97.3 ?F) Oral (!) 54 18 99 % 05/15/19 0400 126/80 36.8 ?C (98.2 ?F) Temporal (!) 58 18 95 % 05/14/19 2320 128/74 36.4 ?C (97.5 ?F) Oral (!) 58 18 97 % 05/14/19 1646 123/54 36.6 ?C (97.9 ?F) Oral 63 18 96 % LABS: CBC, Coags, BMP, Mg, Phos Recent Labs 05/13/19 0745 WBC 10.90* HB 14.4 HCT 44.7 PLT 215 NA 138 K 3.8 CHLOR 106 CO2 24 BUN 12 CREAT 0.82 GLUC 137* CA 9.0 MG 2.3 P 3.4 DATA: Diagnostic tests reviewed for today's visit: Imaging and results reviewed. Assessment/Plan Trigeminal neuralgia POA: Yes Pain mgmt Continue home medications OK to d/c to home Wound and post-op instructions discussed at length F/U with Dr. Juárez on 05/22/19 Medication and Non-Pharmacologic VTE Prophylaxis/Anticoagulants 05/12/191644 vte pharmacologic prophylaxis contraindicated (tx,oh) 05/12/191644 pneumatic compression stockings (tx,ar) 05/12/191644 activity - mobilize patient (tx,ar) VTE Prophylaxis: VTE prophylaxis appropriate SIGNATURE: Alissa Maya PA-C PATIENT NAME: Kate Oreilly DATE: May 15, 2019 TIME: 3:30 PM PAGER/CONTACT #: [phone] [facility] PLAN OF CAREon 05-15-2019 PLAN OF CARE HNO ID: [id number] Author: Brandee Vasques (Gasoline Engine Assembler) Service: Pharmacy Author Type: ? Type: Plan of Care Filed: 05/15/2019 1:25 PM Note Text: PLANT PROTECTION SUPERINTENDENT BEDSIDE DELIVERY SURVEY 1. Patient to use [facility] Bedside Delivery - YES Insurance Information as follows: 2. Insurance card on file - YES 3. Credit card for payment - N/A Topamax 25 mg, dosage increase required a Prior Authorization, [facility] will contact Dr Cristofer Lernerron 1 mg tab Contact Brandee at [phone] or other bedside Tech [phone] with questions prior to discharge Copay total is: 3.55$, so far, this does not include Topamax Reasons for Delay Delivery Processes Identified: Prior Authorization/Insurance, Wheel Aligner capacity, Medication updates and Pharmacy Capacity Pharmacy Discharge Medication Service: This patient has elected to receive their discharge prescriptions through the [facility] Bedside Prescription Delivery program. The prescriptions are currently being processed. A follow-up note will be entered once the prescriptions have been filled and delivered to the patient. Please contact me with any questions or updates to the patient's discharge medications. Brandee Vasques (Gasoline Engine Assembler) DCT Contact Info: Extension [phone], or [phone] [facility] [facility]on 05-15-2019 THERAPY NT HNO ID: [id number] Author: Kim MartínezPtPopeye Rojas Service: Physical Therapy Author Type: Physical Therapist Type: Therapy (PT/OT/Speech/Resp) Filed: 05/15/2019 11:41 AM Note Text: Physical Therapy Evaluation ? SERVICE DATE: 05/15/2019 SERVICE TIME: 1031 to 1055 ROOM: [id number] ? Recommended Discharge Disposition: Home PT Recommendations to Nursing: With assist of 1 person;Ambulate without device;In halls;OOB for Meals Device: No Device PT 6 Clicks Score: 23 ? Precautions/Activity Restrictions: Lines/Tubes/Drains ? ASSESSMENT : Patient is postop scheduled trigeminal nerve surgery . Pt. Is near baseline mobility but in need of stair climbing and homegoing mobility recommendations/instructio ns. Requires skilled PT for gait training, stair climbing, and dynamic balance with pt. Education to safely return home managing flight of stairs. ? Range of Motion: WFL Strength: WFL ? Patient Disposition at Start of Session: Supine in Bed;Call Miles in Reach Patient Disposition at End of Session: OOB in Chair;Call Miles in Reach ? Tolerated Full Session ? Physical Therapy Problem List: Decreased Activity Tolerance Patient /Caregiver Goals: Go Home;Care For Self ? PLAN: Treatment Frequency (times per week): Discontinue Therapy Services Reasons Therapy Services Discontinued: No skilled needs Current admission Treatment Interventions: Education;Functional Mobility Training Plan of Care developed with: Patient ? TREATMENT INTERVENTIONS: Therapy Diagnosis: Reduced mobility-other;General symptoms and signs-other Interventions Provided: Evaluation;Gait Training (27990) ? $ Evaluation-Low (01806) Billed Units: 1 unit Evaluation completed, low level complexity. Pt. With independent mobility but mildly decreased endurance and required stair climbing training to safely negotiate home set up. ? Gait Training (91515) Treatment Minutes: 10 1 unit Skilled Intervention(s): Instruction in sequencing, gait pattern and Instruction in stair negotiation. Pt. Able to ascend/descend 4 stairsx4 with short rest periods and alternating between step to and step over step pattern dependent upon fatigue. Reviewed with pt. Recommendation for safe homegoing mobility strategies, general HEP to increase endurance, and energy conservation strategies. ? Total Timed Code Treatment Minutes: 10 Total Treatment Time (minutes): 24 ? SUBJECTIVE: Current Hospital Course: Chart reviewed; evaluation completed. ? Reason for Physical Therapy Consult : eval and treat Relevant Past Medical History: trigeminal neuralgia, meningioma ? Patient Report: I will be fine at home, lots of people are going to be helping. ? Home Environment Patient Lives With: Spouse;Family Assistance Available: 24 Hour Entry To Home: Stairs;With Rail Number Of Stairs Into Home: 3 Number Of Stairs To Bed/Bath: 14 Stairs to Bed/Bath with: Bilateral Rail Prior Functional Level: Within Functional Limits Prior Functional Level Comments: amb. without device, driving ? OBJECTIVE: CURRENT FUNCTIONAL STATUS: Current Functional Mobility Assist Level Additional Information Rolling Independent ? Supine to Sit Independent ? Sit to Supine Independent ? Scooting ? Sit to Stand Independent ? Stand to Sit Independent ? Bed to Chair Independent Bed To Chair Transfer Type: Stand Pivot Toilet/Commode ? Gait Stand By Assistance Gait Device: None Gait Distance (feet): 100 x2 Stairs Stand By Assistance Stairs Device: Rail Number of Stairs: 16 Curb Step Car Transfer ? ? General Gait Deviations: Arm swing decreased Balance: Dynamic Sitting;Dynamic Standing Dynamic Sitting Balance: Normal Able to sit unsupported AND weight shift across midline maximally Dynamic Standing Balance: Good- / Fair+ Stand independently unsupported, able to weight shift across midline minimally ? Activity Tolerance: Standing Activity Standing Activity: amb. Standing Activity Tolerance (in minutes): 6 ? JH-HLM: 7: Walk 25 feet or more ? ? Please see discipline specific clinical documentation flowsheet for complete details for this therapy evaluation/treatment. ? SIGNATURE: Kim Rojas PT PATIENT NAME: Kate Oreilly DATE: May 15, 2019 TIME: 11:14 AM ? ? Normal [facility] THERAPY NT HNO ID: [id number] Author: Kim Rojas Service: Physical Therapy Author Type: Physical Therapist Type: Therapy (PT/OT/Speech/Resp) Filed: 05/15/2019 10:11 AM Note Text: PHYSICAL THERAPY MISSED VISIT SERVICE DATE: 05/15/2019 SERVICE TIME: 936 to 09 ROOM: [id number]- Attempted Evaluation. Patient not seen due to Another service at bedside. SIGNATURE: Kim Rojas PT PATIENT NAME: Kate Oreilly DATE: May 15, 2019 TIME: 10:11 AM [facility] PROGRESSon 05-14-2019 PROGRESS HNO ID: [id number] Author: Yasmani Cleveland Service: Hospital Medicine Author Type: Physician Type: Progress Notes Filed: 05/14/2019 5:33 PM Note Text: DEPARTMENT OF HOSPITAL MEDICINE [employer] PROGRESS NOTE- HOSPITAL DAY 2 SERVICE DATE: 05/14/2019 5:31 PM Hospital Medicine/Primary Attending: Yasmani Cleveland MD CHIEF COMPLAINT: Trigeminal neuralgia OVERNIGHT EVENTS: Transferred out of the ICU INTERVAL HISTORY OF PRESENT ILLNESS: Patient is postop trigeminal nerve surgery 2 separate venous plexus with Denilson, still has issues with ongoing pain, a little more severe today than yesterday. Neurosurgery recommended probable discharge tomorrow Patient Vitals for the past 24 hrs: BP Temp Temp src Pulse Resp SpO2 05/14/19 1646 123/54 36.6 ?C (97.9 ?F) Oral 63 18 96 % 05/14/19 1501 119/73 36.5 ?C (97.7 ?F) Oral (!) 59 17 97 % 05/14/19 1127 129/74 36.7 ?C (98.1 ?F) Oral 77 16 97 % 05/14/19 0830 146/75 36.6 ?C (97.9 ?F) Oral 72 18 97 % 05/14/19 0457 146/78 36.3 ?C (97.3 ?F) Oral 70 18 100 % 05/13/19 2326 137/79 36.2 ?C (97.2 ?F) ? 64 16 98 % 05/13/192014 142/77 36.8 ?C (98.2 ?F) Oral 70 18 97 % Temp (24hrs), Av.6 ?C (97.8 ?F), Min:36.2 ?C (97.2 ?F), Max:36.8 ?C (98.2 ?F) REVIEW OF SYSTEMS GENERAL: Positive for malaise HEENT: SEE HPI NECK: Negative RESPIRATORY: Negative CARDIOVASCULAR: Negative GI: Negative : Negative MUSCULOSKELETAL: Negative SKIN: Negative NEURO: SEE HPI PHYSICAL EXAM: GENERAL: Morbidly Obese, Alert, Mild Distress, Cooperative SKIN: Skin color, texture, turgor normal. No rashes or lesions. Surgical site over the right mastoid was not disturbed OROPHARYNX: Lips, mucosa, and tongue are normal.Teeth and gums, normal. Oropharynx normal. NECK: No jugulovenous distention, No carotid bruits, Carotid pulse normal contour, Supple LUNGS: Lungs clear to auscultation. Good diaphragmatic excursion. CARDIAC: Normal S1 and S2; no rubs, murmurs, or gallops ABDOMEN: Abdomen soft, non-tender, BS normal, No masses or organomegaly EXTREMITIES: Extremities normal, no deformities, edema, clubbing or skin discoloration. Good capillary refill., No ulcers ASSESSMENT AND PLAN Principal Problem: Trigeminal neuralgia POA: Yes Assessment AND Plan: Status post operative management per neurosurgery. Plan discharge when surgically cleared, anticipate likely tomorrow. Continue steroids and Topamax Active Problems: Essential hypertension, benign POA: Yes Assessment AND Plan: Controlled, continue atenolol Resolved Problems: * No resolved hospital problems. * CODE STATUS: Full PLANNED DISPOSITION: Home Total time 25 minutes during this encounter, including chart review, discussion with nursing staff and/or other providers, documentation, cut order hand, and [id number] time with patient. Diagnostic tests reviewed for today's visit: Most recent labs and imaging results. LABS CBC: Recent Labs 05/13/19 0745 WBC 10.90* HB 14.4 PLT 215 CMP: Recent Labs 05/13/19 0745 NA 138 K 3.8 CHLOR 106 CO2 24 BUN 12 CREAT 0.82 GLUC 137* CA 9.0 Plan of care discussed with: Provider, RN, Patient MEDICATIONS: Current Facility-Administered Medications Medication Dose Route Frequency - montelukast 10 mg tab(s) (SINGULAIR) 10 mg ORAL AT BEDTIME - levothyroxine 75 mcg tab(s) (SYNTHROID) 75 mcg ORAL DAILY - atenolol 50 mg tab(s) (TENORMIN) 50 mg ORAL DAILY - NaCl 0.9% 3-5 mL 3-5 mL INTRAVENOUS q 12 H - famotidine 20 mg tab(s) (PEPCID) 20 mg ORAL/FEEDING TUBE BID - docusate sodium 100 mg cap(s) (COLACE) 100 mg ORAL BID - bisacodyl 10 mg suppository (DULCOLAX) 10 mg RECTAL DAILY PRN - acetaminophen 325-650 mg tab(s) (TYLENOL) 325-650 mg ORAL q 4 H PRN - dexamethasone 4 mg tab(s) (DECADRON) 4 mg ORAL q 6 H - ondansetron (PF) 4 mg injection (ZOFRAN) 4 mg INTRAVENOUS q 6 H PRN - hydrALAZINE 5-10 mg injection (APRESOLINE) 5-10 mg INTRAVENOUS q 1 H PRN - pneumococcal vaccine 23 VALENT 0.5 mL injection (PNEUMOVAX) 0.5 mL INTRAMUSCULAR ONCE (IMMUNIZATION) - ketorolac 15 mg injection (TORADOL) 15 mg INTRAVENOUS q 6 H PRN - pantoprazole DR 20 mg tab(s) (PROTONIX) 20 mg ORAL DAILY (6 AM) - topiramate 75 mg tab(s) (TOPAMAX) 75 mg ORAL BID Medications Discontinued During This Encounter Medication Reason - thrombin topical liquid Auto DC at discharge. - bacitracin 500 unit/gram topical ointment Auto DC at discharge. - bacitracin injection Auto DC at discharge. - remifentanil 1,000 mcg in NaCl 0.9% 40 mL Auto DC with change in level of care. - lactated ringers infusion Auto DC with change in level of care. - fentaNYL 50 mcg/mL 25 mcg injection (SUBLIMAZE) Auto DC with change in level of care. - ondansetron (PF) 4 mg injection (ZOFRAN) Auto DC with change in level of care. - potassium chloride ER 20-40 mEq tab(s) (K-DUR, KLOR-CON) - potassium chloride iv piggyback 20 mEq/100 mL - magnesium sulfate in water 2 g in sterile water 50 ml - sodium phosphate 45 mmol in NaCl 0.9% 250 mL - calcium gluconate 4 g in NaCl 0.9% 250 mL - magnesium hydroxide 400 mg/5 mL 30 mL (MOM) - topiramate 50 mg tab(s) (TOPAMAX) SIGNATURE: Yasmani Cleveland MD PATIENT NAME: Kate Oreilly DATE: May 14, 2019 TIME: 5:31 PM PAGER #: Primary Service NIGHT AND WEEKEND COVERAGE: After 7pm please page [phone] Normal [facility] PROGRESS HNO ID: [id number] Author: Saida Beck Service: Pain Management Author Type: Physician Type: Progress Notes Filed: 05/14/2019 2:46 PM Note Text: Name: KATE OREILLY Age: [age] year old PAIN MANAGEMENT: Mental neurology status post right retrosigmoid reexploration and microvascular decompression of trigeminal nerve; Hx OA and DDD/CBP Pain Description: Right facial pain worse this morning. Increase frequency of brief intense twinges of right trigeminal neuralgia. 24H Pain Regimen: Tylenol 650 mg ?4 Decadron 4 mg ?4 Topamax 50 mg ?2 Interval HPI: Subjective HPI: 24-year-old female with recurrent right trigeminal neuralgia underwent right retrosigmoid approach for reexploration and microvascular decompression of the trigeminal nerve . Per our report, very large venous plexus pressing on the trigeminal nerve. Patient has multiple intolerances to pain medication including codeine, Demerol, gabapentin, Percocet, Ultram, Vicodin and Vioxx which mostly cause severe GI upset. Prior to admission patient was taking Topamax 50 mg twice a day ibuprofen. She also tolerates Tylenol. Patient has chronic pain from osteoarthritis as well. She initially had right trigeminal neuralgia decompression about 9 years ago at [facility]. In the last 18 months she developed recurrent symptoms of right trigeminal neuralgia. She was evaluated by neurology in [place] and referred to neurosurgery for surgical intervention again OARRS Review: No prescriptions filled Current Facility-Administered Medications Medication Dose Route Frequency Provider Last Rate Last Dose - ketorolac 15 mg injection (TORADOL) 15 mg INTRAVENOUS q 6 H PRN Saida K Scantling 15 mg at 05/14/19 1125 - pantoprazole DR 20 mg tab(s) (PROTONIX) 20 mg ORAL DAILY (6 AM) Saida K Scantling 20 mg at 05/14/19 1144 - topiramate 75 mg tab(s) (TOPAMAX) 75 mg ORAL BID Saida K Scantling - montelukast 10 mg tab(s) (SINGULAIR) 10 mg ORAL AT BEDTIME Kim (Pa) Claudio 10 mg at 05/13/19 2016 - levothyroxine 75 mcg tab(s) (SYNTHROID) 75 mcg ORAL DAILY Tylor (Lora) Claudio 75 mcg at 05/14/19 0632 - atenolol 50 mg tab(s) (TENORMIN) 50 mg ORAL DAILY Tylor (Lora) Claudio 50 mg at 05/14/19 1005 - NaCl 0.9% 3-5 mL 3-5 mL INTRAVENOUS q 12 H Tylor (Lora) Claudio 3 mL at 05/14/19 1005 - famotidine 20 mg tab(s) (PEPCID) 20 mg ORAL/FEEDING TUBE BID Tylor Parikh) Claudio 20 mg at 05/14/19 0827 - docusate sodium 100 mg cap(s) (COLACE) 100 mg ORAL BID Tylor Parikh) Claudio 100 mg at 05/12/19 2227 - bisacodyl 10 mg suppository (DULCOLAX) 10 mg RECTAL DAILY PRN Tylor (Lora) Claudio - acetaminophen 325-650 mg tab(s) (TYLENOL) 325-650 mg ORAL q 4 H PRN Tylor Parikh) Claudio 650 mg at 05/14/19 1005 - dexamethasone 4 mg tab(s) (DECADRON) 4 mg ORAL q 6 H Tylor Parikh) Claudio 4 mg at 05/14/19 1126 - ondansetron (PF) 4 mg injection (ZOFRAN) 4 mg INTRAVENOUS q 6 H PRN Tylor Parikh) Claudio - hydrALAZINE 5-10 mg injection (APRESOLINE) 5-10 mg INTRAVENOUS q 1 H PRN Tylor (Lora) Claudio - pneumococcal vaccine 23 VALENT 0.5 mL injection (PNEUMOVAX) 0.5 mL INTRAMUSCULAR ONCE (IMMUNIZATION) Tylor Carrera (Pa) acetaminophen (TYLENOL) 325 mg tablet, Take 650 mg by mouth every 6 hours as needed., Disp: , Rfl: , 05/11/2019 at 1900 topiramate (TOPAMAX) 25 mg tablet, Take 50 mg by mouth twice daily. , Disp: , Rfl: 3, 05/11/2019 at Unknown time levothyroxine (SYNTHROID) 75 mcg tablet, Take 1 tablet by mouth once daily., Disp: 90 tablet, Rfl: 3, 05/12/2019 at 0300 atenolol (TENORMIN) 50 mg tablet, Take 1 tablet by mouth once daily., Disp: 90 tablet, Rfl: 3, 05/12/2019 at 0300 Ibuprofen 200 mg cap, Take by mouth as needed. ON HOLD , Disp: , Rfl: , Past Week at Unknown time montelukast (SINGULAIR) 10 mg tablet, Take 1 tablet by mouth daily at bedtime., Disp: 90 tablet, Rfl: 3, 05/10/2019 Social History Tobacco Use - Smoking status: Never Smoker - Smokeless tobacco: Never Used Substance Use Topics - Alcohol use: No - Drug use: No FAMILY HISTORY Problem Relation Age of Onset - Alzheimer's Disease Mother - Heart Mother pacemaker - Stroke Mother - Heart Father VALVE REPLACEMENT,PACE MAKER - Heart Sister - Heart Brother - Heart Brother - Colon Cancer Sister - Breast Cancer Sister - Breast Cancer Daughter PAST SURGICAL HISTORY Procedure Laterality Date - BX OF BREAST; INCISIONAL Left LATE Bx of breast, incisional - COLONOSCOP W/ OR W/O [facility] 03/12/08 - COLONOSCOP W/ OR W/O [facility] 02/05/14 Colonoscopy - COLONOSCOP W/ OR W/O [facility] 05/20/15 Colonoscopy - COLONOSCOP W/ OR W/O [facility] 01/23/2019 Colonoscopy - PAST SURGICAL HISTORY OF 09/03/2010 CRANIECTOMY EXCISON TUMOR, INFRATENTORIAL OR POST FOSSA, MENIGIOMA - PAST SURGICAL HISTORY OF 05/06/2011 right MVD fro [place] - REMOVAL OF TONSILS,<12 Y/O A CHILD Tonsillectomy - REMV CATARACT EXTRACAP,INSERT LENS 2012 Cataract Extraction with PC IOL - REMV CATARACT EXTRACAP,INSERT LENS 2012 Cataract Extraction with PC IOL ROS: All of the following reviewed and negative except as noted below: GENERAL: no fever, chills, sweats, weight loss, fatigue, generalized weakness HEENT: + headache, vision changes, eye discomfort, hearing change, ear discomfort, sinus pain, nasal discharge or congestion, oral lesions, soreness, dental problem NECK: no adenopathy, discomfort, change in ROM CHEST: no shortness of breath, dyspnea on exertion, wheezing, cough, sputum production or chest pain HEART: no chest pain, palpitations, syncope ABDOMEN: no nausea, vomiting, constipation, diarrhea, abdominal pain : no dysuria, urgency, frequency, history of stones, incontinence NEURO: no confusion or alteration in consciousness, slurred speech, seizure, focal weakness; see history of present illness EXTREMITIES: no new pain, edema, change in ROM HEME: no new adenopathy, bruises, petechiae PSYCH: no depression, anxiety, agitation PAIN PSYCHIATRIC EXAM: GENERAL: alert, oriented to person, place, time JUDGMENT AND INSIGHT: intact APPEARANCE: neatly groomed DEMEANOR: coooperative, not hostile, mistrustful, preoccupied, or demanding ACTIVITY: normal, not hyperactive or hypoactive, no tremors, tics EYE CONTACT: normal SPEECH: normal, rate, volume, articulation, coherence, spontaneity MOOD: normal, without overt sadness, grief, anxiety, appropriate to situation IDEATION: normal and without suicidal or homicidal ideation MEMORY: intact PHYSICAL EXAMINATION: GENERAL: well nourished and developed; no acute distress; alert and oriented x 3; intact judgement and insight HEENT: Right posterior temporal dressing clear dry intact ; cranial nerves intact; eyes clear EOMI; no hearing deficits apparent; nasal passages unremarkable; throat and mucous membranes clear NECK: supple without lymphadenopathy; no JVD; no thyromegaly CHEST: clear bilaterally to auscultation; normal chest movement; no rales or rhonchi HEART: regular rate and rhythm, normal S1 and S2, no murmurs, clicks, rubs, or gallops ABDOMEN: soft; nondistended; bowel sounds present; no hepatomegaly; no splenomegaly; no tenderness EXTREMITIES: no evidence of clubbing; no cyanosis; no deformity; no joint effusion; no edema NEURO: cranial nerves intact; no focal deficits; no confusion; no tremor; sensorium normal SKIN: no rash; no skin breakdown; no decubitus lesions HEME: no bruising; no adenopathy PSYCH: no evidence of depression; no anxiety; no agitation; no apparent hallucinations BP 129/74 Pulse 77 Temp 36.7 ?C (98.1 ?F) (Oral) Resp 16 Ht 170.2 cm (5' 7.01) Wt 95.4 kg (210 lb 5.1 oz) LMP (LMP Unknown) SpO2 97% BMI 32.93 kg/m? BMI 32.93 kg/(m2) Date 05/12/19 07 - 05/13/19 0659 Shift 5276-8205 6961-7790 9447-5885 24 Hour Total INTAKE PO 222 222 IV 1500 1500 Shift Total 4619 115 2829 OUTPUT Urine 718 150 7537 Blood 50 50 Shift Total 834 707 1968 Weight (kg) 93.9 93.9 93.9 93.9 Date 05/11/19 1500 - 05/12/19 0659(Not Admitted) 05/12/19 0700 - 05/13/19 0659 Shift 9196-0835 4402-9484 24 Hour Total 3259-4524 5738-4503 8799-3975 24 Hour Total INTAKE PO 222 222 PO 222 222 IV 1500 1500 OR Crystalloid intake (mL) 1500 1500 Shift Total 1327 320 7186 OUTPUT Urine 576 203 6113 OR Urine Output 600 600 Output ( Indwelling Urinary Catheter 05/12/19 0900 Gregorio 16 Fr) 675 675 Blood 50 50 Estimated Blood loss 50 50 Shift Total 694 320 3285 Weight (kg) 93.9 93.9 93.9 93.9 93.9 93.9 ABNORMAL/NEW FINDINGS: NONE RADIOLOGY/DIAGNOSTICS: LABORATORY: CBC: No results for input(s): WBC, RBC, HB, HCT, PLT, MCV, MCH, MPV, RDW in the last 24 hours. CMP: No results for input(s): NA, K, CHLOR, CO2, BUN, CREAT, GLUC, TPROT, CA, MG, ALBUMIN, TBILI, ALKPHOS, ALT, AST, ANION in the last 24 hours. Heme: No results for input(s): RETICP, ABSRETIC, LD, LISSETTE, FE, TIBC, TRANSFERSAT in the last 24 hours. ASSESSMENT ACTIVE PROBLEM LIST Other Chronic Sinusitis Trigeminal Neuralgia FAMILY HISTORY OF GI NEOPLASM Hyperlipidemia, Mixed Hypothyroidism Unspecified Sleep Apnea Vitamin D deficiency Meningioma (Hcc) Essential Hypertension, Benign Low Back Pain PLAN: S/p Right retrosigmoid approach for re-exploration and microvascular decompression of the trigeminal nerve Increased twinges of right facial pain postoperatively Multiple intolerances to opiates and other pain medications including gabapentin and Vioxx. 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 Prior to admission patient using ibuprofen, Tylenol and Topamax Add Toradol 15 mg IV every 6 hours prn; anticipate transition to ibuprofen if needed at discharge Tylenol 325?650 mg every 4 hours when necessary Decadron 4 mg every 6 hours; steroid taper per neurosurgery While on Decadron and Toradol, add Protonix 20 mg by mouth daily Increase Topamax 75 mg twice a day Per Neurosurgery, anticipate discharge tomorrow Our team will sign off; available as needed Saida Beck MD [facility] PROGRESS HNO ID: [id number] Author: Evelio Harrison Service: Neurosurgery Author Type: Physician Type: Progress Notes Filed: 05/14/2019 11:59 AM Note Text: Neurosurgery : Afebrile. Dressing dry. Has pain along the upper part of the R V3, lower part is better. Has not ambulated enough yet. Anticipate discharge tomorrow. Evelio Harrison MD [facility] Basic Panelon 05-13-2019 Creatinine [Mass/Vol] 0.82 mg/dL Normal 0.51-0.95 [facility] Comment on above: Performed By: #### M APTT #### [address] [address] Anion gap [Moles/Vol] 12 mmol/L Normal 8-16 [facility] Comment on above: Performed By: #### M APTT #### [address] [address] CO2 [Moles/Vol] 24 mmol/L Normal 21-32 [facility] Comment on above: Performed By: #### M APTT #### [address] [address] Glucose [Mass/Vol] 137 mg/dL High 70-99 [facility] Comment on above: Performed By: #### M APTT #### [address] [address] Urea nitrogen [Mass/Vol] 12 mg/dL Normal 7-18 [facility] Comment on above: Performed By: #### M APTT #### [address] [address] Calcium [Mass/Vol] 9.0 mg/dL Normal 8.5-10.1 [facility] Comment on above: Performed By: #### M APTT #### [facility] [address] [place], [place] [address] Chloride [Moles/Vol] 106 mmol/L Normal 98-107 [facility] Comment on above: Performed By: #### M APTT #### [facility] [address] [place], [place] [address] Potassium [Moles/Vol] 3.8 mmol/L Normal 3.5-5.1 [facility] Comment on above: Performed By: #### M APTT #### [facility] [address] [place], [place] [address] Sodium [Moles/Vol] 138 mmol/L Normal 136-145 [facility] Comment on above: Performed By: #### M APTT #### [facility] [address] [place] [address] Hemogramon 05-13-2019 Erythrocyte distribution width (RBC) [Ratio] 13.6 % Normal 11.7-14.4 [facility] Comment on above: Performed By: #### M APTT #### [facility] [address] [place], [place] [address] Hematocrit (Bld) [Volume fraction] 44.7 % Normal 34.1-44.9 [facility] Comment on above: Performed By: #### M APTT #### [facility] [address] [place], [place] [address] Hemoglobin (Bld) [Mass/Vol] 14.4 g/dL Normal 11.2-15.7 [facility] Comment on above: Performed By: #### M APTT #### [facility] [address] [place], [place] [address] MCH (RBC) [Entitic mass] 29.0 pg Normal 25.6-32.2 [facility] Comment on above: Performed By: #### M APTT #### [facility] [address] [place], [place] [address] MCHC (RBC) [Mass/Vol] 32.2 % Normal 31.6-34.8 [facility] Comment on above: Performed By: #### M APTT #### [facility] [address] [place] [address] MCV (RBC) [Entitic vol] 90.1 fL Normal 79.4-94.8 [facility] Comment on above: Performed By: #### M APTT #### [facility] [address] [place] [address] Platelet mean volume (Bld) [Entitic vol] 11.2 fL Normal 9.4-12.3 [facility] Comment on above: Performed By: #### M APTT #### [facility] [address] [place] [address] Platelets (Bld) [#/Vol] 215 thou/cmm Normal 182-369 [facility] Comment on above: Performed By: #### M APTT #### [facility] [address] [place] [address] RBC (Bld) [#/Vol] 4.96 mil/cmm Normal 3.93-5.22 [facility] Comment on above: Performed By: #### M APTT #### [facility] [address] [place] [address] RDW SD 44.6 fl Normal 36.4-46.3 [facility] Comment on above: Performed By: #### M APTT #### [facility] [address] [place] [address] WBC (Bld) [#/Vol] 10.90 thou/cmm High 3.98-10.04 [facility] Comment on above: Performed By: #### M APTT #### [facility] [address] [place] [address] MDRD GFRon 05-13-2019 GFR/1.73 sq M predicted among non-blacks MDRD (S/P/Bld) [Vol rate/Area] mL/min/{1.73_m2} Normal >60mL/min/1 .73m2 [facility] Comment on above: Result Comment: If t he patient is , multiply the result by 1.210. Performed By: #### M APTT #### [facility] [address] [place] [address] Magnesium Bloodon 05-13-2019 Magnesium [Mass/Vol] 2.3 mg/dL Normal 1.6-2.6 [facility] Comment on above: Performed By: #### M APTT #### [facility] [address] [place] [id number] NURSING PROGon 05-13-2019 NURSING PROG HNO ID: [id number] Author: Carey (Rn) CORTEZ Watts Service: Nursing Author Type: Registered Nurse Type: Nursing Progress Note Filed: 05/13/2019 5:00 PM Note Text: 1620 Report called to Fili EVANGELISTA on [phone] Patient transferred to [facility] via wheelchair with belongings and chart. Medications given to RN Eliana [facility] PROGRESSon 05-13-2019 PROGRESS HNO ID: [id number] Author: Tylor Parikh) Claudio Service: Neurology ICU Author Type: Physician Exercise Equipment Repair Technician Type: Progress Notes Filed: 05/13/2019 3:31 PM Note Text: -- Attestation signed by Iban Conway at 05/13/2019 9:14 PM PATIENT NAME: Kate Oreilly PATIENT STAFF COORDINATION OF CRITICAL CARE I have reviewed the progress note obtained and documented by the advanced practice provider Claudio. I have personally seen and examined the patient and discussed their management with the BENJI. I reviewed the BENJI note and agree with the documented findings and plan of care. I have repeated the examination and confirm the findings except as documented below. PATIENT PROBLEMS I REVIEWED, REVISED AND/OR INITIATED: Active Problems: Trigeminal neuralgia Hypothyroidism Essential hypertension, benign Resolved Problems: * No resolved hospital problems. * PLAN Pain control Decadron taper per nsgy Pt/ot and oob Bp control, continue atenolol No icu needs Please see the documented [id number] plan in the updated problem list. [facility] Staff Physician note of personal involvement in Care: I was personally involved in the care of this patient. The required my full attention and direct personal management. Iban Conway MD Staff, Neurointensive Care DATE of SERVICE: May 13, 2019 TIME of SERVICE: 9:14 PM This is an electronically created document. If printed, please do not remove from the chart or modify printed copy. -- SERVICE DATE: 05/13/2019 SERVICE TIME: 3:31 PM NEURO ICU PROGRESS NOTE DATE OF ADMISSION: 05/12/2019 Subjective Hospital Course: 05/13: patient having much improvement but still residual pain in jaw. On decadron 4mg q6hr, NS following, patient stable for RNF today Events Since Last Note: none Objective BP 121/56 Pulse 71 Temp (!) 35.7 ?C (96.3 ?F) (Temporal) Resp 16 Ht 170.2 cm (5' 7.01) Wt 95.4 kg (210 lb 5.1 oz) LMP (LMP Unknown) SpO2 99% BMI 32.93 kg/m? Weight change: 1.505 kg (3 lb 5.1 oz) Neuro: Patient is alert and oriented x 4, following commands, PERR, EOM intact, face is symmtrical with no facial droop. Speech is clear GCS: Eyes: 4. Spontaneous Verbal: 5: Oriented Motor: 6: Obeys Motor commands Total: 15 CRANIAL NERVES: Normal mood and affect. CNII-XII grossly intact. MOTOR STRENGTH: Upper and lower extremity 5/5 bilaterally SENSATION: Intact light touch COORDINATION: Finger-to- nose-finger intact bilaterally and Rrxe-vc-najh intact bilaterally CV: RRR Pulm: CTAB no wheezing, on RA and unlabored GI/: soft, nondistended and non tender Skin/Extremities: Edema- No Peripheral pulses- Present all extremities Wounds/Drsgs- Yes site is c/d/i Breakdown- No Diagnostic tests reviewed for today's visit: Most recent labs and imaging results. Lines, Drains, and Airways Line Peripheral 05/12/19 Left Forearm 18 Gauge 1 day Peripheral 05/12/19 Left Hand 20 Gauge 1 day Peripheral 05/13/19 0800 Assessment Short Right Forearm 20 Gauge less than 1 day ICU Checklist VTE Prophylaxis: PERSONAL INVOLVEMENT IN CARE: Reviewing initiation, responses and adjustments to therapies, coordination of care, and updating family with Staff Physician, Dr. conway. Assessment AND Plan Active Hospital Problems as of 05/13/2019 Noted - Resolved Hospital Trigeminal neuralgia 05/18/2005 - Present Current Assessment AND Plan Trigeminal neuralgia s/p Right retrosigmoid approach for re-exploration and microvascular decompression of the trigeminal nerve by Dr Juárez - c/w TPX 50mg bid - decadron 4mg Q6h - tylenol prn pain - neuro checks Q4h - Monitor drsabi and incisions for s/s infection Hypothyroidism 10/11/2007 - Present Current Assessment AND Plan Home synthroid Essential hypertension, benign 08/11/2010 - Present Current Assessment AND Plan -c/w atenolol 50mg daily; home med -hydralazine prn for SBP >160 Medication and Non-Pharmacologic VTE Prophylaxis/Anticoagulants 05/12/19 1645 vte pharmacologic prophylaxis contraindicated (tx,oh) 05/12/19 1645 pneumatic compression stockings (tx,oh) 05/12/19 1645 activity - mobilize patient (tx,ar) VTE Prophylaxis: VTE prophylaxis appropriate Plan of care discussed with: Provider, RN, Patient SIGNATURE: TYLOR CARRERA PA-C PATIENT NAME: Kate Oreilly DATE: May 13, 2019 TIME: 3:31 PM PAGER/CONTACT #: [phone] [facility] PROGRESS HNO ID: [id number] Author: Saida Beck Service: Pain Management Author Type: Physician Type: Progress Notes Filed: 05/13/2019 11:46 AM Note Text: Name: KATE OREILLY Age: [age] year old PAIN MANAGEMENT: Mental neurology status post right retrosigmoid reexploration and microvascular decompression of trigeminal nerve; Hx OA and DDD/CBP Pain Description: patient seen earlier, sitting in chair eating breakfast. Had twinges of right trigeminal neuralgia last night when she chewed on exam which is scoliosis morning. New pain base of right neck where previous has developed. Overall feels better. 24H Pain Regimen: Tylenol 650 mg ?3 Decadron 4 mg ?2 Topamax 50 mg ?2 Interval HPI: Subjective HPI: 24-year-old female with recurrent right trigeminal neuralgia underwent right retrosigmoid approach for reexploration and microvascular decompression of the trigeminal nerve . Per our report, very large venous plexus pressing on the trigeminal nerve. Patient has multiple intolerances to pain medication including codeine, Demerol, gabapentin, Percocet, Ultram, Vicodin and Vioxx which mostly cause severe GI upset. Prior to admission patient was taking Topamax 50 mg twice a day ibuprofen. She also tolerates Tylenol. Patient has chronic pain from osteoarthritis as well. She initially had right trigeminal neuralgia decompression about 9 years ago at [facility]. In the last 18 months she developed recurrent symptoms of right trigeminal neuralgia. She was evaluated by neurology in [place] and referred to neurosurgery for surgical intervention again OARRS Review: No prescriptions filled Current Facility-Administered Medications Medication Dose Route Frequency Provider Last Rate Last Dose - montelukast 10 mg tab(s) (SINGULAIR) 10 mg ORAL AT BEDTIME Tana (Pipeline Technician) Herraiz 10 mg at 05/12/192226 - levothyroxine 75 mcg tab(s) (SYNTHROID) 75 mcg ORAL DAILY Tana (Pipeline Technician) Herraiz 75 mcg at 05/13/19 0617 - atenolol 50 mg tab(s) (TENORMIN) 50 mg ORAL DAILY Tana (Pipeline Technician) Herraiz 50 mg at 05/13/19 0811 - topiramate 50 mg tab(s) (TOPAMAX) 50 mg ORAL BID Tana (Pipeline Technician) Herraiz 50 mg at 05/13/19 0811 - potassium chloride ER 20-40 mEq tab(s) (K-DUR, KLOR-CON) 20-40 mEq ORAL/FEEDING TUBE PRN Tana ([facility]) Herraiz Or - potassium chloride iv piggyback 20 mEq/100 mL 20 mEq INTRAVENOUS PRN Tana ([facility]) Herraiz - magnesium sulfate in water 2 g in sterile water 50 ml 2 g INTRAVENOUS PRN Tana ([facility]) Herraiz - sodium phosphate 45 mmol in NaCl 0.9% 250 mL 45 mmol INTRAVENOUS PRN Tana ([facility]) Herraiz - calcium gluconate 4 g in NaCl 0.9% 250 mL 4 g INTRAVENOUS PRN Tana ([facility]) Herraiz - NaCl 0.9% 3-5 mL 3-5 mL INTRAVENOUS q 12 H Tana ([facility]) Herraiz 3 mL at 05/13/19 0812 - famotidine 20 mg tab(s) (PEPCID) 20 mg ORAL/FEEDING TUBE BID Tana ([facility]) Herraiz 20 mg at 05/13/19 0812 - docusate sodium 100 mg cap(s) (COLACE) 100 mg ORAL BID Tana ([facility]) Herraiz 100 mg at 05/12/197 - magnesium hydroxide 400 mg/5 mL 30 mL (MOM) 30 mL ORAL/FEEDING TUBE DAILY PRN Tana ([facility]) Herraiz - bisacodyl 10 mg suppository (DULCOLAX) 10 mg RECTAL DAILY PRN Tana ([facility]) Herraiz - acetaminophen 325-650 mg tab(s) (TYLENOL) 325-650 mg ORAL q 4 H PRN Tana ([facility]) Herraiz 650 mg at 05/13/19 0812 - dexamethasone 4 mg tab(s) (DECADRON) 4 mg ORAL q 6 H Milli Juárez 4 mg at 05/13/19 0617 - ondansetron (PF) 4 mg injection (ZOFRAN) 4 mg INTRAVENOUS q 6 H PRN Fernando (Res) Rich - hydrALAZINE 5-10 mg injection (APRESOLINE) 5-10 mg INTRAVENOUS q 1 H PRN Fernando (Jagdeep) Rich - pneumococcal vaccine 23 VALENT 0.5 mL injection (PNEUMOVAX) 0.5 mL INTRAMUSCULAR ONCE (IMMUNIZATION) Milli Juárez acetaminophen (TYLENOL) 325 mg tablet, Take 650 mg by mouth every 6 hours as needed., Disp: , Rfl: , 05/11/2019 at 1900 topiramate (TOPAMAX) 25 mg tablet, Take 50 mg by mouth twice daily. , Disp: , Rfl: 3, 05/11/2019 at Unknown time levothyroxine (SYNTHROID) 75 mcg tablet, Take 1 tablet by mouth once daily., Disp: 90 tablet, Rfl: 3, 05/12/2019 at 0300 atenolol (TENORMIN) 50 mg tablet, Take 1 tablet by mouth once daily., Disp: 90 tablet, Rfl: 3, 05/12/2019 at 0300 Ibuprofen 200 mg cap, Take by mouth as needed. ON HOLD , Disp: , Rfl: , Past Week at Unknown time montelukast (SINGULAIR) 10 mg tablet, Take 1 tablet by mouth daily at bedtime., Disp: 90 tablet, Rfl: 3, 05/10/2019 Social History Tobacco Use - Smoking status: Never Smoker - Smokeless tobacco: Never Used Substance Use Topics - Alcohol use: No - Drug use: No FAMILY HISTORY Problem Relation Age of Onset - Alzheimer's Disease Mother - Heart Mother pacemaker - Stroke Mother - Heart Father VALVE REPLACEMENT,PACE MAKER - Heart Sister - Heart Brother - Heart Brother - Colon Cancer Sister - Breast Cancer Sister - Breast Cancer Daughter PAST SURGICAL HISTORY Procedure Laterality Date - BX OF BREAST; INCISIONAL Left LATE Bx of breast, incisional - COLONOSCOP W/ OR W/O [facility] SPEC 03/12/08 - COLONOSCOP W/ OR W/O [facility] SPEC 02/05/14 Colonoscopy - COLONOSCOP W/ OR W/O [facility] SPEC 05/20/15 Colonoscopy - COLONOSCOP W/ OR W/O [facility] SPEC 01/23/2019 Colonoscopy - PAST SURGICAL HISTORY OF 09/03/2010 CRANIECTOMY EXCISON TUMOR, INFRATENTORIAL OR POST FOSSA, MENIGIOMA - PAST SURGICAL HISTORY OF 05/06/2011 right MVD fro [place] - REMOVAL OF TONSILS,<12 Y/O A CHILD Tonsillectomy - REMV CATARACT EXTRACAP,INSERT LENS 2012 Cataract Extraction with PC IOL - REMV CATARACT EXTRACAP,INSERT LENS 2012 Cataract Extraction with PC IOL ROS: All of the following reviewed and negative except as noted below: GENERAL: no fever, chills, sweats, weight loss, fatigue, generalized weakness HEENT: + headache, vision changes, eye discomfort, hearing change, ear discomfort, sinus pain, nasal discharge or congestion, oral lesions, soreness, dental problem NECK: no adenopathy, discomfort, change in ROM CHEST: no shortness of breath, dyspnea on exertion, wheezing, cough, sputum production or chest pain HEART: no chest pain, palpitations, syncope ABDOMEN: no nausea, vomiting, constipation, diarrhea, abdominal pain : no dysuria, urgency, frequency, history of stones, incontinence NEURO: no confusion or alteration in consciousness, slurred speech, seizure, focal weakness; see history of present illness EXTREMITIES: no new pain, edema, change in ROM HEME: no new adenopathy, bruises, petechiae PSYCH: no depression, anxiety, agitation PAIN PSYCHIATRIC EXAM: GENERAL: alert, oriented to person, place, time JUDGMENT AND INSIGHT: intact APPEARANCE: neatly groomed DEMEANOR: coooperative, not hostile, mistrustful, preoccupied, or demanding ACTIVITY: normal, not hyperactive or hypoactive, no tremors, tics EYE CONTACT: normal SPEECH: normal, rate, volume, articulation, coherence, spontaneity MOOD: normal, without overt sadness, grief, anxiety, appropriate to situation IDEATION: normal and without suicidal or homicidal ideation MEMORY: intact PHYSICAL EXAMINATION: GENERAL: well nourished and developed; no acute distress; alert and oriented x 3; intact judgement and insight HEENT: Right posterior temporal dressing clear dry intact ; cranial nerves intact; eyes clear EOMI; no hearing deficits apparent; nasal passages unremarkable; throat and mucous membranes clear NECK: supple without lymphadenopathy; no JVD; no thyromegaly CHEST: clear bilaterally to auscultation; normal chest movement; no rales or rhonchi HEART: regular rate and rhythm, normal S1 and S2, no murmurs, clicks, rubs, or gallops ABDOMEN: soft; nondistended; bowel sounds present; no hepatomegaly; no splenomegaly; no tenderness EXTREMITIES: no evidence of clubbing; no cyanosis; no deformity; no joint effusion; no edema NEURO: cranial nerves intact; no focal deficits; no confusion; no tremor; sensorium normal SKIN: no rash; no skin breakdown; no decubitus lesions HEME: no bruising; no adenopathy PSYCH: no evidence of depression; no anxiety; no agitation; no apparent hallucinations BP 118/54 Pulse 69 Temp 37 ?C (98.6 ?F) (Temporal) Resp 26 Ht 170.2 cm (5' 7.01) Wt 95.4 kg (210 lb 5.1 oz) LMP (LMP Unknown) SpO2 100% BMI 32.93 kg/m? BMI 32.93 kg/(m2) Date 05/12/19 0700 - 05/13/19 0659 Shift 4095-7792 0546-0867 5864-3487 24 Hour Total INTAKE PO 222 222 IV 1500 1500 Shift Total 8524 328 7143 OUTPUT Urine 865 214 5892 Blood 50 50 Shift Total 056 798 1917 Weight (kg) 93.9 93.9 93.9 93.9 Date 05/11/19 1500 - 05/12/19 0659(Not Admitted) 05/12/19 0700 - 05/13/19 0659 Shift 1698-4316 7393-5838 24 Hour Total 6931-3988 0923-2445 1370-6346 24 Hour Total INTAKE PO 222 222 PO 222 222 IV 1500 1500 OR Crystalloid intake (mL) 1500 1500 Shift Total 3918 171 1665 OUTPUT Urine 527 277 1796 OR Urine Output 600 600 Output ( Indwelling Urinary Catheter 05/12/19 0900 Gregorio 16 Fr) 675 675 Blood 50 50 Estimated Blood loss 50 50 Shift Total 048 537 1898 Weight (kg) 93.9 93.9 93.9 93.9 93.9 93.9 ABNORMAL/NEW FINDINGS: NONE RADIOLOGY/DIAGNOSTICS: LABORATORY: CBC: Recent Labs 05/13/19 0745 WBC 10.90* RBC 4.96 HB 14.4 HCT 44.7 PLT 215 MCV 90.1 MCH 29.0 MPV 11.2 RDW 13.6 CMP: Recent Labs 05/13/19 0745 NA 138 K 3.8 CHLOR 106 CO2 24 BUN 12 CREAT 0.82 GLUC 137* CA 9.0 MG 2.3 ANION 12 Heme: No results for input(s): RETICP, ABSRETIC, LD, LISSETTE, FE, TIBC, TRANSFERSAT in the last 24 hours. ASSESSMENT ACTIVE PROBLEM LIST Other Chronic Sinusitis Trigeminal Neuralgia FAMILY HISTORY OF GI NEOPLASM Hyperlipidemia, Mixed Hypothyroidism Unspecified Sleep Apnea Vitamin D deficiency Meningioma (Hcc) Essential Hypertension, Benign Low Back Pain PLAN: S/p Right retrosigmoid approach for re-exploration and microvascular decompression of the trigeminal nerve very infrequent twinges of right facial pain postoperatively when she was chewing. Overall significant improvement in pain post surgery Multiple intolerances to opiates and other pain medications including gabapentin and Vioxx Prior to admission patient using ibuprofen, Tylenol and Topamax Tylenol 325?650 mg every 4 hours when necessary Decadron 4 mg every 6 hours Continue Topamax 50 mg twice a day Saida Beck MD [facility] PROGRESS HNO ID: [id number] Author: Evelio Harrison Service: Neurosurgery Author Type: Physician Type: Progress Notes Filed: 05/13/2019 10:32 AM Note Text: Neurosurgery : POD #1 R retrosigmoid reexploration and MVD of trigeminal nerve. Afebrile. Mild RÍOS. Reports a few R facial twinges of pain but no where close to preop and she seems quite satisfied with this change. The incision site is dry and flat. No facial numbness or hearing deficit. Awake and alert and moving all extremities. Evelio Harrison MD [facility] Phosphorus Bloodon 9 Phosphate [Mass/Vol] 3.4 mg/dL Normal 2.5-4.9 [facility] Comment on above: Performed By: #### M APTT #### [place] [address] ABO/Rh Confirmationon 2018 ABO group Nom (Bld) A [facility] Comment on above: Performed By: #### A JOCELYNN #### [place] [address] RH Type Positive [facility] Comment on above: Performed By: #### A JOCELYNN #### [place] [address] ANES Dyana 05-12-2019 ANES POST HNO ID: [id number] Author: Tyler Rod Service: Anesthesiology Author Type: Physician Type: Anesthesia PostOp Filed: 05/12/2019 4:34 PM Note Text: POST ANESTHESIA EVALUATION NOTE SERVICE DATE: 05/12/2019 SERVICE TIME: 4:33 PM : 1945 Vitals: 05/12/19 0656 05/12/19 1208 Temp: 36.3 ?C (97.3 ?F) 36.3 ?C (97.3 ?F) 05/12/19 1515 05/12/19 1530 05/12/19 1545 05/12/19 1600 Arterial BP 1: BP: 153/78 163/75 157/70 159/77 05/12/19 1515 05/12/19 1530 05/12/19 1545 05/12/19 1600 Pulse: 75 75 78 75 05/12/19 1515 05/12/19 1530 05/12/19 1545 05/12/19 1600 Resp: 19 22 05/12/19 1515 05/12/19 1530 05/12/19 1545 05/12/19 1600 SpO2: 100% 100% 100% 100% Validated Vital Signs: Yes POST ANES STATUS: No apparent anesthetic complications. The patient is appropriately hydrated with stable respiratory and cardiovascular status. Patient has safe and adequate airway control. The patient has appropriate pain relief and no significant post operative nausea or vomiting. The patient has achieved baseline mental status. Intra-Operative Events: No Significant Anesthesia Events Further assessment by Anesthesia Service: None Other Remarks: SIGNATURE: Tyler Rod MD PATIENT NAME: Kate Orelily DATE: May 12, 2019 TIME: 4:33 PM PAGER/CONTACT # Normal [facility] ANES PREOPon 05-12-2019 ANES PREOP HNO ID: [id number] Author: Geronimo Martinez Service: Anesthesiology Author Type: Physician Type: Anesthesia PreOp Filed: 05/12/2019 10:17 AM Note Text: ANESTHESIOLOGY DAY OF SURGERY NOTE SERVICE DATE: 05/12/2019 SERVICE TIME: 7:17 AM : 1945 Procedure(s) (LRB): RIGHT REVISION MICROVASCULAR DECOMPRESSION OF TRIGEMINAL NERVE, RETROSIGMOID APPROACH (N/A) MICROSURGICAL TECHNIQUE FOR CRANIOTOMY PROCEDURES (N/A) STEREOTACTIC COMPUTER-ASSISTED NAVIGATIONAL PROCEDURE CRANIAL (N/A) Surgeon(s): Milli Harrison Estimated body mass index is 32.42 kg/m? as calculated from the following: Height as of 05/05/19: 170.2 cm (5' 7). Weight as of 05/05/19: 93.9 kg (207 lb). Most recent hematocrit and potassium results: Hematocrit 45.7 05/05/2019 Potassium 4.6 05/05/2019 ANES DOS/PREOP NOTE: Vitals: 05/12/19 0656 BP: 128/76 Pulse: 63 Resp: 16 Temp: 36.3 ?C (97.3 ?F) SpO2: 99% ACTIVE PROBLEM LIST Other Chronic Sinusitis Trigeminal Neuralgia FAMILY HISTORY OF GI NEOPLASM Hyperlipidemia, Mixed Hypothyroidism Unspecified Sleep Apnea Vitamin D deficiency Meningioma (Hcc) Essential Hypertension, Benign Low Back Pain PAST MEDICAL HISTORY Diagnosis Date - Diverticulosis of colon (without mention of hemorrhage) - Family history of malignant neoplasm of gastrointestinal tract - Head injury 09/30 trip fall - HTN (hypertension) - Hypothyroidism - Internal hemorrhoids without mention of complication - SREEKANTH (obstructive sleep apnea) - Other and unspecified hyperlipidemia - Pneumonia 07/2011 - Snoring - Trigeminal neuralgia PAST SURGICAL HISTORY Procedure Laterality Date - BX OF BREAST; INCISIONAL Left LATE 'S Bx of breast, incisional - COLONOSCOP W/ OR W/O [facility] SPEC 03/12/08 - COLONOSCOP W/ OR W/O [facility] SPEC 02/05/14 Colonoscopy - COLONOSCOP W/ OR W/O [facility] SPEC 05/20/15 Colonoscopy - COLONOSCOP W/ OR W/O [facility] SPEC 01/23/2019 Colonoscopy - PAST SURGICAL HISTORY OF 09/03/2010 CRANIECTOMY EXCISON TUMOR, INFRATENTORIAL OR POST FOSSA, MENIGIOMA - PAST SURGICAL HISTORY OF 05/06/2011 right MVD fro [place] - REMOVAL OF TONSILS,<12 Y/O A CHILD Tonsillectomy - REMV CATARACT EXTRACAP,INSERT LENS 2012 Cataract Extraction with PC IOL - REMV CATARACT EXTRACAP,INSERT LENS 2012 Cataract Extraction with PC IOL FAMILY HISTORY Problem Relation Age of Onset - Alzheimer's Disease Mother - Heart Mother pacemaker - Stroke Mother - Heart Father VALVE REPLACEMENT,PACE MAKER - Heart Sister - Heart Brother - Heart Brother - Colon Cancer Sister - Breast Cancer Sister - Breast Cancer Daughter Social History: Social History Tobacco Use - Smoking status: Never Smoker - Smokeless tobacco: Never Used Substance Use Topics - Alcohol use: No - Drug use: No No current facility-administered medications on file prior to encounter. Current Outpatient Medications on File Prior to Encounter Medication Sig - acetaminophen (TYLENOL) 325 mg tablet Take 650 mg by mouth every 6 hours as needed. - topiramate (TOPAMAX) 25 mg tablet Take 50 mg by mouth twice daily. - levothyroxine (SYNTHROID) 75 mcg tablet Take 1 tablet by mouth once daily. - atenolol (TENORMIN) 50 mg tablet Take 1 tablet by mouth once daily. - Ibuprofen 200 mg cap Take by mouth as needed. ON HOLD - montelukast (SINGULAIR) 10 mg tablet Take 1 tablet by mouth daily at bedtime. No current facility-administered medications for this encounter. Allergies: ALLERGIES Allergen Reactions - Amoxicillin Rash - Carbamazepine Rash - Codeine Vomiting - Demerol [Meperidine* Intolerance - Neurontin [Gabapent* Dizziness, feeling like I couldn't work - Percocet [Oxycodone* Vomiting - Tegretol [Carbamaze* Vomiting Dizziness, couldn't see straight Skin reaction when went in sun - Tramadol Vomiting - Vicodin [Hydrocodon* Vomiting - Vioxx [Rofecoxib] Rash DOS EXAM: Adequate NPO Status: Yes Anesthetic Risks, Benefits, Alternatives, Personnel and Consent Discussed: Yes Patient agrees to proceed: Yes Previous Anesthesia: No history of adverse event Airway Assessment: MP 3; Neck ROM: Full ROM without neurologic symptoms; Airway Evaluation: Short Neck and Short Thyromental Distance Symptoms of Sleep Apnea: Hypertension and Age over 50 (74 year old) Dentition: Poor dentition Chipped, loose and/or missing Additional Physical Exam: Lungs: Patient health status unchanged since recent history and physical. See history and physical for exam findings. Cardiac: Patient health status unchanged since recent history and physical. See history and physical for exam findings. Additional Pertinent Findings: N/A Blood Products: Will accept Blood/Blood Products Anesthetic Plan: General Anesthetic Monitoring: Standard ASA Monitors, Invasive Hemodynamic Monitoring Arterial line and +/- CVC, Potential Prolonged Intubation, Potential ICU Admission Postop and Potential Multiple Transfusions Pain Management Plan: Parenteral or Oral ASA Class: 3 Other Medical Problems: None Chronic Beta Andre medication administered within 24 hours: Yes I have interviewed and examined the patient. I have reviewed the medical record and/or the pre-anesthesia evaluation, pertinent labs, and test results. Significant changes in the patient's condition since the History and Physical, not otherwise documented in primary service progress notes: No This contains updated information obtained within 48 hours of Surgery/Procedure. SIGNATURE: Geronimo Martinez MD PATIENT NAME: Kate Oreilly DATE: May 12, 2019 TIME: 7:17 AM CSN: [id number] [facility] BRIEF OP NOTon 05-12-2019 BRIEF OP NOT HNO ID: [id number] Author: Milli Juárez Service: Neurosurgery Author Type: Physician Type: Brief Op Note Filed: 05/12/2019 12:29 PM Note Text: BRIEF OP NOTE LOG ID: [id number] Surgery/Procedure Date: 05/12/2019 Incision/Procedure Start Time: 9:33 AM Incision Close/Procedure End Time: 12:00 PM Surgeon(s)/Proceduralist(s ) and Exercise Equipment Repair Technician(s): Surgeon(s) and Role: * Milli Juárez - Primary * Evelio Hrarison - Assisting Procedure(s): Right retrosigmoid approach for re-exploration and microvascular decompression of the trigeminal nerve Anesthesia: General Findings: Very large venous plexus pressing on the trigeminal nerve. Denilson placed between venous plexus and nerve Estimated Blood Loss: 50 mls Specimens: None Complications: None Pre-Op/Pre-Procedure Diagnosis: trigeminal neuralgia Post-Op/Post-Procedure Diagnosis: Trigeminal neuralgia [G50.0] SIGNATURE: Milli Juárez MD PATIENT NAME: Kate Oreilly DATE: May 12, 2019 TIME: 12:27 PM PAGER/CONTACT #: [phone] [facility] CONSULTon 05-12-2019 CONSULT HNO ID: [id number] Author: Saida Beck Service: Pain Management Author Type: Physician Type: Consults Filed: 05/12/2019 6:28 PM Note Text: Name: KATE OREILLY Age: [age] year old PAIN MANAGEMENT: Mental neurology status post right retrosigmoid reexploration and microvascular decompression of trigeminal nerve; Hx OA and DDD/CBP Pain Description: pt resting comfortably, eating dinner. Daughter in room. Mild pain at incision. Denies headache. Feels much better after surgery 24H Pain Regimen: Tylenol 325?650 mg every 4 hours when necessary Decadron 4 mg by mouth every 6 hours Interval HPI: Subjective HPI: 24-year-old female with recurrent right trigeminal neuralgia underwent right retrosigmoid approach for reexploration and microvascular decompression of the trigeminal nerve 1I/22. Per our report, very large venous plexus pressing on the trigeminal nerve. Patient has multiple intolerances to pain medication including codeine, Demerol, gabapentin, Percocet, Ultram, Vicodin and Vioxx which mostly cause severe GI upset. Prior to admission patient was taking Topamax 50 mg twice a day ibuprofen. She also tolerates Tylenol. Patient has chronic pain from osteoarthritis as well. She initially had right trigeminal neuralgia decompression about 9 years ago at [facility]. In the last 18 months she developed recurrent symptoms of right trigeminal neuralgia. She was evaluated by neurology in [place] and referred to neurosurgery for surgical intervention again OARRS Review: No prescriptions filled Current Facility-Administered Medications Medication Dose Route Frequency Provider Last Rate Last Dose - montelukast 10 mg tab(s) (SINGULAIR) 10 mg ORAL AT BEDTIME Tana (Pipeline Technician) Herraiz - [START ON 05/13/2019] levothyroxine 75 mcg tab(s) (SYNTHROID) 75 mcg ORAL DAILY Tana (Pipeline Technician) Herraiz - [START ON 05/13/2019] atenolol 50 mg tab(s) (TENORMIN) 50 mg ORAL DAILY Tana (Pipeline Technician) Herraiz - topiramate 50 mg tab(s) (TOPAMAX) 50 mg ORAL BID Tana (Pipeline Technician) Herraiz - potassium chloride ER 20-40 mEq tab(s) (K-DUR, KLOR-CON) 20-40 mEq ORAL/FEEDING TUBE PRN Tana (Pipeline Technician) Herraiz Or - potassium chloride iv piggyback 20 mEq/100 mL 20 mEq INTRAVENOUS PRN Tana (Pipeline Technician) Herraiz - magnesium sulfate in water 2 g in sterile water 50 ml 2 g INTRAVENOUS PRN Tana (Pipeline Technician) Herraiz - sodium phosphate 45 mmol in NaCl 0.9% 250 mL 45 mmol INTRAVENOUS PRN Tana (Pipeline Technician) Herraiz - calcium gluconate 4 g in NaCl 0.9% 250 mL 4 g INTRAVENOUS PRN Tana (Pipeline Technician) Herraiz - NaCl 0.9% 3-5 mL 3-5 mL INTRAVENOUS q 12 H Tana (Pipeline Technician) Herraiz - famotidine 20 mg tab(s) (PEPCID) 20 mg ORAL/FEEDING TUBE BID Tana (Pipeline Technician) Herraiz - docusate sodium 100 mg cap(s) (COLACE) 100 mg ORAL BID Tana ([facility]) Herraiz - magnesium hydroxide 400 mg/5 mL 30 mL (MOM) 30 mL ORAL/FEEDING TUBE DAILY PRN Tana ([facility]) Herraiz - bisacodyl 10 mg suppository (DULCOLAX) 10 mg RECTAL DAILY PRN Tana ([facility]) Herraiz - acetaminophen 325-650 mg tab(s) (TYLENOL) 325-650 mg ORAL q 4 H PRN Tana ([facility]) Herraiz 650 mg at 05/12/19 1721 - vancomycin iv piggyback 1 g in D5W 200 mL (VANCOCIN) 1 g INTRAVENOUS ONCE Tana ([facility]) Omer - dexamethasone 4 mg tab(s) (DECADRON) 4 mg ORAL q 6 H Milli Juárez - ondansetron (PF) 4 mg injection (ZOFRAN) 4 mg INTRAVENOUS q 6 H PRN Fernando (Res) Rich - hydrALAZINE 5-10 mg injection (APRESOLINE) 5-10 mg INTRAVENOUS q 1 H PRN Fernando (Res) Rich - pneumococcal vaccine 23 VALENT 0.5 mL injection (PNEUMOVAX) 0.5 mL INTRAMUSCULAR ONCE (IMMUNIZATION) Milli Juárez acetaminophen (TYLENOL) 325 mg tablet, Take 650 mg by mouth every 6 hours as needed., Disp: , Rfl: , 05/11/2019 at 1900 topiramate (TOPAMAX) 25 mg tablet, Take 50 mg by mouth twice daily. , Disp: , Rfl: 3, 05/11/2019 at Unknown time levothyroxine (SYNTHROID) 75 mcg tablet, Take 1 tablet by mouth once daily., Disp: 90 tablet, Rfl: 3, 05/12/2019 at 0300 atenolol (TENORMIN) 50 mg tablet, Take 1 tablet by mouth once daily., Disp: 90 tablet, Rfl: 3, 05/12/2019 at 0300 Ibuprofen 200 mg cap, Take by mouth as needed. ON HOLD , Disp: , Rfl: , Past Week at Unknown time montelukast (SINGULAIR) 10 mg tablet, Take 1 tablet by mouth daily at bedtime., Disp: 90 tablet, Rfl: 3, 05/10/2019 Social History Tobacco Use - Smoking status: Never Smoker - Smokeless tobacco: Never Used Substance Use Topics - Alcohol use: No - Drug use: No FAMILY HISTORY Problem Relation Age of Onset - Alzheimer's Disease Mother - Heart Mother pacemaker - Stroke Mother - Heart Father VALVE REPLACEMENT,PACE MAKER - Heart Sister - Heart Brother - Heart Brother - Colon Cancer Sister - Breast Cancer Sister - Breast Cancer Daughter PAST SURGICAL HISTORY Procedure Laterality Date - BX OF BREAST; INCISIONAL Left LATE 'S Bx of breast, incisional - COLONOSCOP W/ OR W/O [facility] SPEC 03/12/08 - COLONOSCOP W/ OR W/O BRS SPEC 02/05/14 Colonoscopy - COLONOSCOP W/ OR W/O BRS SPEC 05/20/15 Colonoscopy - COLONOSCOP W/ OR W/O BRS SPEC 01/23/2019 Colonoscopy - PAST SURGICAL HISTORY OF 09/03/2010 CRANIECTOMY EXCISON TUMOR, INFRATENTORIAL OR POST FOSSA, MENIGIOMA - PAST SURGICAL HISTORY OF 05/06/2011 right MVD fro [place] - REMOVAL OF TONSILS,<12 Y/O A CHILD Tonsillectomy - REMV CATARACT EXTRACAP,INSERT LENS 2012 Cataract Extraction with PC IOL - REMV CATARACT EXTRACAP,INSERT LENS 2012 Cataract Extraction with PC IOL ROS: All of the following reviewed and negative except as noted below: GENERAL: no fever, chills, sweats, weight loss, fatigue, generalized weakness HEENT: + headache, vision changes, eye discomfort, hearing change, ear discomfort, sinus pain, nasal discharge or congestion, oral lesions, soreness, dental problem NECK: no adenopathy, discomfort, change in ROM CHEST: no shortness of breath, dyspnea on exertion, wheezing, cough, sputum production or chest pain HEART: no chest pain, palpitations, syncope ABDOMEN: no nausea, vomiting, constipation, diarrhea, abdominal pain : no dysuria, urgency, frequency, history of stones, incontinence NEURO: no confusion or alteration in consciousness, slurred speech, seizure, focal weakness; see history of present illness EXTREMITIES: no new pain, edema, change in ROM HEME: no new adenopathy, bruises, petechiae PSYCH: no depression, anxiety, agitation PAIN PSYCHIATRIC EXAM: GENERAL: alert, oriented to person, place, time JUDGMENT AND INSIGHT: intact APPEARANCE: neatly groomed DEMEANOR: coooperative, not hostile, mistrustful, preoccupied, or demanding ACTIVITY: normal, not hyperactive or hypoactive, no tremors, tics EYE CONTACT: normal SPEECH: normal, rate, volume, articulation, coherence, spontaneity MOOD: normal, without overt sadness, grief, anxiety, appropriate to situation IDEATION: normal and without suicidal or homicidal ideation MEMORY: intact PHYSICAL EXAMINATION: GENERAL: well nourished and developed; no acute distress; alert and oriented x 3; intact judgement and insight HEENT: Right posterior temporal dressing clear dry intact ; cranial nerves intact; eyes clear EOMI; no hearing deficits apparent; nasal passages unremarkable; throat and mucous membranes clear NECK: supple without lymphadenopathy; no JVD; no thyromegaly CHEST: clear bilaterally to auscultation; normal chest movement; no rales or rhonchi HEART: regular rate and rhythm, normal S1 and S2, no murmurs, clicks, rubs, or gallops ABDOMEN: soft; nondistended; bowel sounds present; no hepatomegaly; no splenomegaly; no tenderness EXTREMITIES: no evidence of clubbing; no cyanosis; no deformity; no joint effusion; no edema NEURO: cranial nerves intact; no focal deficits; no confusion; no tremor; sensorium normal SKIN: no rash; no skin breakdown; no decubitus lesions HEME: no bruising; no adenopathy PSYCH: no evidence of depression; no anxiety; no agitation; no apparent hallucinations BP 123/65 Pulse 82 Temp 36.8 ?C (98.2 ?F) Resp 22 Ht 170.2 cm (5' 7) Wt 93.9 kg (207 lb) LMP (LMP Unknown) SpO2 100% BMI 32.42 kg/m? BMI 32.42 kg/(m2) Date 05/12/19699 - 05/13/19 0659 Shift 1436-9219 5793-6679 6991-0789 24 Hour Total INTAKE PO 222 222 IV 1500 1500 Shift Total 7311 009 8002 OUTPUT Urine 931 578 9787 Blood 50 50 Shift Total 691 668 7626 Weight (kg) 93.9 93.9 93.9 93.9 Date 05/11/19 1500 - 05/12/19 0659(Not Admitted) 05/12/19 07 - 05/13/19 0659 Shift 4158-2452 3485-4756 24 Hour Total 6973-1173 0284-2720 2417-0431 24 Hour Total INTAKE PO 222 222 PO 222 222 IV 1500 1500 OR Crystalloid intake (mL) 1500 1500 Shift Total 8671 353 4339 OUTPUT Urine 457 731 9836 OR Urine Output 600 600 Output ( Indwelling Urinary Catheter 05/12/19 0900 Gregorio 16 Fr) 675 675 Blood 50 50 Estimated Blood loss 50 50 Shift Total 279 126 1493 Weight (kg) 93.9 93.9 93.9 93.9 93.9 93.9 ABNORMAL/NEW FINDINGS: NONE RADIOLOGY/DIAGNOSTICS: LABORATORY: CBC: No results for input(s): WBC, RBC, HB, HCT, PLT, MCV, MCH, MPV, RDW in the last 24 hours. CMP: No results for input(s): NA, K, CHLOR, CO2, BUN, CREAT, GLUC, TPROT, CA, MG, ALBUMIN, TBILI, ALKPHOS, ALT, AST, ANION in the last 24 hours. Heme: No results for input(s): RETICP, ABSRETIC, LD, LISSETTE, FE, TIBC, TRANSFERSAT in the last 24 hours. ASSESSMENT ACTIVE PROBLEM LIST Other Chronic Sinusitis Trigeminal Neuralgia FAMILY HISTORY OF GI NEOPLASM Hyperlipidemia, Mixed Hypothyroidism Unspecified Sleep Apnea Vitamin D deficiency Meningioma (Hcc) Essential Hypertension, Benign Low Back Pain PLAN: S/p Right retrosigmoid approach for re-exploration and microvascular decompression of the trigeminal nerve Multiple intolerances to opiates and other pain medications including gabapentin and Vioxx Prior to admission patient using ibuprofen, Tylenol and Topamax Tylenol 325?650 mg every 4 hours when necessary Decadron 4 mg every 6 hours Discussed with daughter at bedside who is a pharmacist. If needed consider fentanyl 25 ?g IV every 2 hours when necessary. Patient did not want to start at this time Unclear if patient will need to resume Topamax at discharge Thank you for this consult Saida Beck MD [facility] CT BRAIN WO IVCONon 05-12-20 CT BRAIN WO IVCON * * *Final Report* * * DATE OF EXAM: May 12 2019 7:47AM [facility] 0504 - CT BRAIN WO IVCON / PROCEDURE REASON: Trigeminal neuralgia * * * * Physician Interpretation * * * * EXAMINATION: CT BRAIN WO IVCON CLINICAL HISTORY: Trigeminal neuralgia TECHNIQUE: High resolution axial images without IV contrast were obtained from the vertex to the foramen magnum. MQ: [id number] CT Dose-Length Product (DLP): 918.81 mGy*cm CT Dose Reduction Employed: Iterative recon COMPARISON: MR brain 03/30/2019 RESULT: Post-operative change: Bilateral retromastoid craniectomy and cranioplasty. Acute change: No evidence of an acute infarct or other acute parenchymal process. Hemorrhage: No evidence of acute intracranial hemorrhage. Mass Lesion / Mass Effect: There is no evidence of an intracranial mass or extraaxial fluid collection. No significant mass effect. Chronic change: None apparent. Parenchyma: There is mild generalized volume loss. The brain parenchyma is otherwise within normal limits for age. Ventricles: Ventricular enlargement concordant with the degree of parenchymal volume loss. Paranasal sinuses and skull base: The visualized paranasal sinuses are grossly clear. The skull base and imaged soft tissues are unremarkable. IMPRESSION: Stereotactic unenhanced CT brain for presurgical planning. No acute intracranial findings Curing Machine Operator: GEMA Transcribe Date/Time: May 12 2019 7:49A Dictated by : NUBIA RODARTE MD This examination was interpreted and the report reviewed and electronically signed by: NUBIA RODARTE MD on May 12 2019 7:52AM EST Normal [facility] HISTORY PHYSICALon HISTORY PHYSICAL HNO ID: [id number] Author: Carmelo Hardy Service: Neurology ICU Author Type: Physician Type: HANDP Filed: 05/12/2019 5:35 PM Note Text: SERVICE DATE: 05/12/2019 SERVICE TIME: 5:31 PM NEUROLOGICAL INTENSIVE CARE UNIT HISTORY AND PHYSICAL REASON FOR ADMISSION: Right Trigeminal nerve decompression Subjective HPI: 74yo female with PMHx significant HTN, HPL, SREEKANTH, diverticulosis, and trigeminal neuralgia. Pt has had hx right jaw pain for over 10 years. This started after meningioma resection. She had craniectomy for exploration of decompression cranial nerves surgery for trigeminal neuralgia [place] [address] Choe. Unfortunately symptoms returned about 1.5 years later. Today pt underwent Right retrosigmoid approach for re-exploration and microvascular decompression of the trigeminal nerve with Dr Juárez. PT had large venous plexus pressing on trigeminal nerve. Denilson was placed between them. No complications noted. ? PAST MEDICAL HISTORY Diagnosis Date - Diverticulosis of colon (without mention of hemorrhage) - Family history of malignant neoplasm of gastrointestinal tract - Head injury 09/30 trip fall - HTN (hypertension) - Hypothyroidism - Internal hemorrhoids without mention of complication - SREEKANTH (obstructive sleep apnea) - Other and unspecified hyperlipidemia - Pneumonia 07/2011 - Snoring - Trigeminal neuralgia PAST SURGICAL HISTORY Procedure Laterality Date - BX OF BREAST; INCISIONAL Left LATE Bx of breast, incisional - COLONOSCOP W/ OR W/O BRS SPEC 03/12/08 - COLONOSCOP W/ OR W/O BRS SPEC 02/05/14 Colonoscopy - COLONOSCOP W/ OR W/O BRS SPEC 05/20/15 Colonoscopy - COLONOSCOP W/ OR W/O BRS SPEC 01/23/2019 Colonoscopy - PAST SURGICAL HISTORY OF 09/03/2010 CRANIECTOMY EXCISON TUMOR, INFRATENTORIAL OR POST FOSSA, MENIGIOMA - PAST SURGICAL HISTORY OF 05/06/2011 right MVD fro [place] - REMOVAL OF TONSILS,<12 Y/O A CHILD Tonsillectomy - REMV CATARACT EXTRACAP,INSERT LENS 2012 Cataract Extraction with PC IOL - REMV CATARACT EXTRACAP,INSERT LENS 2012 Cataract Extraction with PC IOL FAMILY HISTORY Problem Relation Age of Onset - Alzheimer's Disease Mother - Heart Mother pacemaker - Stroke Mother - Heart Father VALVE REPLACEMENT,PACE MAKER - Heart Sister - Heart Brother - Heart Brother - Colon Cancer Sister - Breast Cancer Sister - Breast Cancer Daughter ALLERGIES Allergen Reactions - Amoxicillin Rash - Carbamazepine Rash - Codeine Vomiting - Demerol [Meperidine* Intolerance - Neurontin [Gabapent* Dizziness, feeling like I couldn't work - Percocet [Oxycodone* Vomiting - Tegretol [Carbamaze* Vomiting Dizziness, couldn't see straight Skin reaction when went in sun - Tramadol Vomiting - Vicodin [Hydrocodon* Vomiting - Vioxx [Rofecoxib] Rash PRIOR TO ADMISSION MEDICATIONS: acetaminophen (TYLENOL) 325 mg tablet, Take 650 mg by mouth every 6 hours as needed., Disp: , Rfl: , 05/11/2019 at 1900 topiramate (TOPAMAX) 25 mg tablet, Take 50 mg by mouth twice daily. , Disp: , Rfl: 3, 05/11/2019 at Unknown time levothyroxine (SYNTHROID) 75 mcg tablet, Take 1 tablet by mouth once daily., Disp: 90 tablet, Rfl: 3, 05/12/2019 at 0300 atenolol (TENORMIN) 50 mg tablet, Take 1 tablet by mouth once daily., Disp: 90 tablet, Rfl: 3, 05/12/2019 at 0300 Ibuprofen 200 mg cap, Take by mouth as needed. 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 GENERAL: No weight loss, malaise or fevers HEENT: No changes in hearing or vision, no nose bleeds or other nasal problems. NECK: Negative for lumps, goiter, pain and significant neck swelling RESPIRATORY: Negative for cough, wheezing or shortness of breath. CARDIOVASCULAR: Negative for chest pain, leg swelling or palpitations. GI: Negative for abdominal discomfort, blood in stools or black stools or change in bowel habits. : No history of dysuria, frequency or incontinence. EXPERIMENTAL OUTBOARD MOTORS MECHANIC: N/A MUSCULOSKELETAL: Negative for joint pain or swelling, back pain or muscle pain. SKIN: Negative for lesions, rash, and itching. PSYCH: trouble sleeping r/t pain. Denies anxiety/depression. HEMATOLOGY/LYMPHOLOGY: Negative for prolonged bleeding, bruising easily or swollen nodes. ENDOCRINE: Negative for cold or heat intolerance, polyuria, polydipsia and goiter. ALLERGIC/IMMUNOLOGIC: Negative for autoimmune diseases and allergies. NEURO: Negative for headaches, syncope, paralysis, seizures or tremors Objective Vital Signs (Last 24hrs min/max): BP 129/86 Pulse 92 Temp 36.8 ?C (98.2 ?F) Resp 21 Ht 170.2 cm (5' 7) Wt 93.9 kg (207 lb) LMP (LMP Unknown) SpO2 100% BMI 32.42 kg/m? PHYSICAL EXAM: NEUROLOGICAL: GCS: Eyes: 4. Spontaneous Verbal: 5: Oriented Motor: 6: Obeys Motor commands Total: 15 Alert and oriented to person, place, month year Speech clear with occasional word finding issue PERRLA EOMI VFF MAEx4 5/5 strength coordination intact good F-N, H-S Sensation intact LT CV: RRR Pulm: CTAB even unlabored on RA GI/: soft NT +BS x4 Skin/Extremities: Edema- No Peripheral pulses- Present all extremities Wounds/Drsgs- Yes Breakdown- No DATA: Diagnostic tests reviewed for today's visit: Most recent labs and imaging results. Lines, Drains, and Airways Line Peripheral 05/12/19 Left Forearm 18 Gauge less than 1 day Peripheral 05/12/19 Left Hand 20 Gauge less than 1 day Drain Indwelling Urinary Catheter 05/12/19 0900 Gregorio 16 Fr less than 1 day PERSONAL INVOLVEMENT IN CARE: Reviewing initiation, responses and adjustments to therapies, coordination of care, and updating family with Staff Physician, Dr. Hardy. Assessment AND Plan Active Hospital Problems as of 05/12/2019 Noted - Resolved Hospital Trigeminal neuralgia 05/18/2005 - Present Current Assessment AND Plan Trigeminal neuralgia s/p Right retrosigmoid approach for re-exploration and microvascular decompression of the trigeminal nerve by Dr Juárez - c/w TPX 50mg bid - decadron 4mg Q6h - tylenol prn pain - neuro checks Q1h - Monitor drsg and incisions for s/s infection Essential hypertension, benign 08/11/2010 - Present Current Assessment AND Plan -c/w atenolol 50mg daily; home med -hydralazine prn for SBP >160 Medication and Non-Pharmacologic VTE Prophylaxis/Anticoagulants 05/12/19 1645 vte pharmacologic prophylaxis contraindicated (tx,oh) 05/12/19 1645 pneumatic compression stockings (tx,ar) 05/12/19 1645 activity - mobilize patient ([place], [place]) VTE Prophylaxis: SCDs SIGNATURE: Cyndie Mejias APRN.VALUE STREAM MANAGER PATIENT NAME: Kate Oreilly DATE: May 12, 2019 TIME: 5:31 PM PAGER/CONTACT #: [phone] NSICU STAFF ADDENDUM Carmelo Hardy MD Pt seen and examined independently. Labs/vitals/imaging reviewed personally. Agree with above, reflecting my direct input. S/p MVD. Watch for posterior fossa syndrome. BP control. C/w analgesia and antiemesis, pt comfortable at present. Plan per Nsgy. PERSONAL INVOLVEMENT IN CARE: ? ?Patient/Family Updated: Patient and/or family were updated regarding the goals of care,?medical plan for the day, library consultant recommendations, medical disposition and current medical condition/prognosis as and if clinically indicated. All questions and concerns were answered and addressed at this juncture. I agree with the BENJI note as above, except as otherwise indicated; my additional comments, if necessary, are in bold. ? This patient has a high probability of sudden, clinically significant deterioration, which requires the highest level of physician preparedness to intervene urgently. I managed/supervised life or organ supporting interventions that required frequent physician assessment. I devoted my full attention to the direct care of this patient for the amount of time indicated below. Time I spent with family or surrogate(s) is included only if the patient was incapable of providing the necessary information or participating in medical decision making. Time devoted to teaching and to any procedures I billed separately is not included. ? Critical Care Documentation: The patient has the following organ/system impairment(s): As above Time spent providing critical care services: 31 minutes. ? SIGNATURE: Carmelo Hardy MD PATIENT NAME: Kate Oreilly DATE: 05/12/19 TIME: 5:33 PM PAGER/CONTACT #: [phone] Normal [facility] MRSA Screenon 05-12-2019 MRSA DNA LANDON+probe Ql (Unsp spec) Test performed at [facility] No MRSA detected. Normal [facility] Comment on above: Performed By: #### M APTT #### [place] [id number] OPERATIVE NOon 05-12-2019 OPERATIVE NO HNO ID: [id number] Author: Evelio Harrison Service: Neurosurgery Author Type: Physician Type: Operative Report Filed: 05/13/2019 8:47 AM Note Text: [facility] - Operative Report KATE OREILLY : 1945 AGE: 74. SEX: F PATIENT TYPE: I HOSP SVC: NEUS LOCATION: [facility] ATTENDING PHYSICIAN: MILLI JUÁREZ [facility] NUMBER: [id number] DATE OF SURGERY/PROCEDURE: 05/12/2019 INCISION/PROCEDURE START TIME: 9:33 AM INCISION CLOSE/PROCEDURE END TIME: 12:00 PM PREOPERATIVE DIAGNOSIS: Recurrent right trigeminal neuralgia. POSTOPERATIVE DIAGNOSIS: Recurrent right trigeminal neuralgia. SURGEON: Evelio Harrison MD SPRING SALVAGE WORKER: Evelio Harrison MD. SURGERY/PROCEDURE: Right rectus sigmoid approach to reexploration and microvascular decompression of right trigeminal nerve. ANESTHESIA: General. PRINCIPAL SURGEON: Milli Juárez. COMPLICATIONS: None. FINDINGS: Very large venous plexus pressing on the trigeminal nerve. Denilson was placed between the venous plexus and the nerve. DESCRIPTION OF PROCEDURE: Dr. Milli Juárez will dictate the detailed procedure. I provided routine assistance throughout the case from the skin incision to the skin closure including the microdissection. Evelio Harrison MD GFK:[id number] /[id number] [facility] OPERATIVE NO HNO ID: [id number] Author: Milli Juárez Service: Neurosurgery Author Type: Physician Type: Operative Report Filed: 05/22/2019 11:10 AM Note Text: OPERATIVE/PROCEDURE REPORT LOG ID: [id number] SURGERY/PROCEDURE DATE: 05/12/2019 INCISION/PROCEDURE START TIME: 9:33 AM INCISION CLOSE/PROCEDURE END TIME: 12:00 PM SURGEON(S)/PROCEDURALIST(S ) AND SPRING SALVAGE WORKER(S): Surgeon(s) and Role: * Milli Juárez - Primary * Evelio Harrison - Assisting No Additional Staff SURGERY/PROCEDURE(S): Right retrosigmoid approach for re-exploration and microvascular decompression of the trigeminal nerve Use of intraoperative microscope Use of intraoperative neuronavigation ANESTHESIA: General Operative Indications: This is a 74 year old female who presented with recurrence of her trigeminal neuralgia symptoms after an MVD 9 years ago with pain in the V3 distribution mainly and evidence of a large vein on top of the nerve on imaging. Surgical re-exploration and decompression was discussed with the patient who wished to proceed with surgery. SURGERY/PROCEDURE DETAILS: Prior to induction of anesthesia, an audible huddle was performed confirming site of operation, planned operation, need for antibiotics, and other anticipated needs with the patient, surgical, nursing, and anesthesia teams. All agreed to proceed. Patient was positioned in a lateral position. All pressure points were verified to be padded appropriately. The patient was placed in a Pedersen automatic head sawyer and fixed to the Pedersen with attention to maintaining venous drainage. The surgical region was prepped and draped in the usual sterile fashion. The patient was connected to neuro-monitoring. The patient was registered to the intraoperative neuronavigation. Prior to starting the operation the surgical team paused and performed an audible timeout. The surgical, nursing, and anesthesia personnel agreed with the procedure to be performed. A retrosigmoid curvilinear incision on the right side was taken down in layers to expose the asterion and the surrounding bone. Starting from the asterion, a 3 cm diameter craniectomy was re-explored along the edges of the transverse and sigmoid sinuses. There was no air cell exposed during craniectomy. The posterior fossa dura was opened in a curvilinear fashion, taking care to avoid the transverse and sigmoid sinuses. At this time, the intraoperative microscope was brought into the field. The cerebellum was gently retracted to expose the inferior aspect of the cerebellopontine angle. The cistern was opened for adequate drainage of the cerebrospinal fluid. This resulted in decompression of the posterior fossa. The arachnoid and prior granulation/scar tissues was dissected around the area of the trigeminal nerve. The prior denilson was seen between the trigeminal nerve and an artery coursing posteriorly. A very large venous plexus was found on top of the trigeminal nerve. Given the size of the venous plexus, it was felt to be too dangerous to try to cauterize the veins and careful dissection was performed to allow for placement of Denilson between the veins and the nerve. Denilson was placed between the nerve and the veins and carefully inspected. After ensuring hemostasis, copious irrigation of the posterior fossa was carried out. The posterior fossa dura was reapproximated. A Duragen onlay and a dural sealant were placed in the craniectomy defect. Cranioplasty was carried out using a large MRI-compatible micro titanium plate. Prior to closure, hemostasis was achieved. The wound was copiously irrigated. All retracting devices were removed from the wound. All temporary implants were removed from the wound. Prior to closure, surgical count was correct and verified x 1. The wound was closed in the usual fashion. Galeal and cutaneous sutures were placed. The wound was then dressed. Operative Findings: Very large venous plexus pressing on the trigeminal nerve. Denilson placed between venous plexus and nerve. PRE-OP/PRE-PROCEDURE DIAGNOSIS: Trigeminal neuralgia POST-OP/POST-PROCEDURE DIAGNOSIS: Trigeminal neuralgia [G50.0] ESTIMATED BLOOD LOSS: 50 mls SPECIMENS: None IMPLANTABLE DEVICES: Implant Name Type Inv. Item Serial No. It Corporate Recruiter Lot No. LRB No. Used FELT THK1.65MM RECTANGLE PTFE 4.5X6MM CARDIOVASCULAR PLEDGET - [id number] Fabric FELT THK1.65MM RECTANGLE PTFE 4.5X6MM CARDIOVASCULAR PLEDGET CR BARD INC PERIPHERAL VASCULAR N/A 1 GRAFT DURAGEN PLUS BOVINE COLLAGEN MATRIX 2X2IN SOFT TISSUE PATCH - [id number] Framework - Tissue GRAFT DURAGEN PLUS BOVINE COLLAGEN MATRIX 2X2IN SOFT TISSUE PATCH INTEGRA LIFE SCI NEURO [id number] N/A 1 SCREW BONE UNIVERSAL NEURO 3 4MM 1.5MM SELF DRILL AXIAL STABILITY LATEX - [id number] Screw SCREW BONE UNIVERSAL NEURO 3 4MM 1.5MM SELF DRILL AXIAL STABILITY LATEX STRY/HOWM CRANIOMAXILLOFACIAL Right 6 SCREW BONE UNIVERSAL NEURO 3 4MM 1.5MM SELF DRILL AXIAL STABILITY LATEX - [id number] Screw SCREW BONE UNIVERSAL NEURO 3 4MM 1.5MM SELF DRILL AXIAL STABILITY LATEX STRY/HOWM CRANIOMAXILLOFACIAL Right 1 MESH STANDARD GOLD TITANIUM 90X90X.6MM DYNAMIC CRANIOMAXILLOFACIAL - [id number] Mesh MESH STANDARD GOLD TITANIUM 90X90X.6MM DYNAMIC CRANIOMAXILLOFACIAL STRY/HOWM CRANIOMAXILLOFACIAL Right 1 DRAINS: Gregorio catheter COMPLICATIONS: None PARTICIPATION IN SURGERY/PROCEDURE: I/primary surgeon/proceduralist performed the procedure with Dr. Harrison's assistance with opening, trigeminal nerve exploration and decompression, as well as closure. No qualified resident/fellow was available. SIGNATURE: Milli Juárez MD PATIENT NAME: Kate Oreilly DATE: May 12, 2019 TIME: 4:58 PM PAGER/CONTACT #: [phone] Normal [facility] Activated PTTon 05-05-2019 aPTT Coag (Bld) [Time] 23.9 s Normal 23.0-32.4 [facility] Comment on above: Result Comment: Unfr actionated Heparin Therapeutic Ranges: Standard Heparin Nomogram: 53 to 78 seconds (anti-Xa level of 0.3 to 0.7 U/mL) Low Dose/ACS Nomogram: 49 to 67 seconds (anti-Xa level of 0.2 to 0.5 U/mL) Stroke Treatment Nomogram: 49 to 67 seconds (anti-Xa level of 0.2 to 0.5 U/mL) Note: The APTT therapeutic range has been determined for the current lot of laboratory APTT reagent in use throughout the [facility]. Performed By: #### M APTT #### [facility] [address] [place], [place] [address] Basic Panelon 05-05-2019 Creatinine [Mass/Vol] 0.85 mg/dL Normal 0.51-0.95 [facility] Comment on above: Performed By: #### P 8 #### [facility] [address] [place], [place] [address] Anion gap [Moles/Vol] 12 mmol/L Normal 8-16 [facility] Comment on above: Performed By: #### P 8 #### [facility] [address] [place], [place] [address] Calcium [Mass/Vol] 9.2 mg/dL Normal 8.5-10.1 [facility] Comment on above: Performed By: #### P 8 #### [facility] [address] [place], [place] [address] CO2 [Moles/Vol] 25 mmol/L Normal 21-32 [facility] Comment on above: Performed By: #### P 8 #### [facility] [address] [place], [place] [address] Glucose [Mass/Vol] 82 mg/dL Normal 70-99 [facility] Comment on above: Performed By: #### P 8 #### [facility] [address] [place], [place] [address] Urea nitrogen [Mass/Vol] 13 mg/dL Normal 7-18 [facility] Comment on above: Performed By: #### P 8 #### [facility] [address] [place], [place] [address] Chloride [Moles/Vol] 107 mmol/L Normal 98-107 [facility] Comment on above: Performed By: #### P 8 #### [facility] [address] [place], [place] [address] Potassium [Moles/Vol] 4.6 mmol/L Normal 3.5-5.1 [facility] Comment on above: Performed By: #### P 8 #### [facility] [address] [place], [place] [address] Sodium [Moles/Vol] 139 mmol/L Normal 136-145 [facility] Comment on above: Performed By: #### P 8 #### [facility] [address] [place], [place] [address] Cult Urineon 05-05-2019 Cult Urine Test performed at [facility] No growth <1,000 CFU/ml. Normal [facility] Comment on above: Performed By: #### C _URI #### [facility] [address] [place], [place] [address] HISTORY PHYSICALon 9 HISTORY PHYSICAL HNO ID: [id number] Author: Vini Cartagena Service: ? Author Type: Nurse Practitioner Type: HANDP Filed: 05/05/2019 10:30 AM Note Text: HISTORY AND PHYSICAL EXAMINATION SERVICE DATE: 05/05/2019 SERVICE TIME: 9:33 AM PRIMARY CARE PHYSICIAN: Kenn Beauchamp MD The patient has the following: ACTIVE PROBLEM LIST Other Chronic Sinusitis Trigeminal Neuralgia FAMILY HISTORY OF GI NEOPLASM Hyperlipidemia, Mixed Hypothyroidism Unspecified Sleep Apnea Vitamin D deficiency Meningioma (Hcc) Essential Hypertension, Benign Low Back Pain Subjective CHIEF COMPLAINT: Trigeminal neuralgia HPI: This is a 74 year old female that presents today for presurgical testing with c/o above. Pt was referred by [facility] neurology to Dr. Juárez for a history of right jaw pain that has been going on for 10 years. MRI was performed which showed a meningioma and performed surgeyr, then 3 months later, trigeminal neuralgia nerve surgery was performed, but returned 1- 1/2 years ago. Pain to jaw is so severe at night she cannot sleep, has right ear pressure, some nasal bleeding, dizziness and etc. Patient says this has negatively impacted her quality of life, and notes symptoms are worsening. Dr. Choe performed craniectomy for exploration of decompression cranial nerves surgery for trigeminal neuralgia in 2009. Pt denies PT or injections, Gabapentin causes side effects so pt stopped. Based on history, duration and worsening of symptoms, imaging, and assessment conducted by Dr. Juárez, surgical intervention was recommended and agreed upon by pt and surgeon. PAST MEDICAL HISTORY Diagnosis Date - Diverticulosis of colon (without mention of hemorrhage) - Family history of malignant neoplasm of gastrointestinal tract - Head injury 09/30 trip fall - HTN (hypertension) - Hypothyroidism - Internal hemorrhoids without mention of complication - SREEKANTH (obstructive sleep apnea) - Other and unspecified hyperlipidemia - Pneumonia 07/2011 - Snoring - Trigeminal neuralgia PAST SURGICAL HISTORY Procedure Laterality Date - BX OF BREAST; INCISIONAL Left LATE Bx of breast, incisional - COLONOSCOP W/ OR W/O BRS SPEC 03/12/08 - COLONOSCOP W/ OR W/O BRS SPEC 02/05/14 Colonoscopy - COLONOSCOP W/ OR W/O BRS SPEC 05/20/15 Colonoscopy - COLONOSCOP W/ OR W/O BRS SPEC 01/23/2019 Colonoscopy - PAST SURGICAL HISTORY OF 09/03/2010 CRANIECTOMY EXCISON TUMOR, INFRATENTORIAL OR POST FOSSA, MENIGIOMA - PAST SURGICAL HISTORY OF 05/06/2011 right MVD fro [place] - REMOVAL OF TONSILS,<12 Y/O A CHILD Tonsillectomy - REMV CATARACT EXTRACAP,INSERT LENS 2012 Cataract Extraction with PC IOL - REMV CATARACT EXTRACAP,INSERT LENS 2012 Cataract Extraction with PC IOL FAMILY HISTORY Problem Relation Age of Onset - Alzheimer's Disease Mother - Heart Mother pacemaker - Stroke Mother - Heart Father VALVE REPLACEMENT,PACE MAKER - Heart Sister - Heart Brother - Heart Brother - Colon Cancer Sister - Breast Cancer Sister - Breast Cancer Daughter SOCIAL HISTORY: Social History Tobacco Use - Smoking status: Never Smoker - Smokeless tobacco: Never Used Substance Use Topics - Alcohol use: No - Drug use: No Prior to Admission medications as of 05/05/19 1014 Medication Sig Last Dose Taking acetaminophen (TYLENOL) 325 mg tablet Take 650 mg by mouth every 6 hours as needed. Taking Yes topiramate (TOPAMAX) 25 mg tablet Take 50 mg by mouth twice daily. Taking Yes levothyroxine (SYNTHROID) 75 mcg tablet Take 1 tablet by mouth once daily. Taking Yes atenolol (TENORMIN) 50 mg tablet Take 1 tablet by mouth once daily. Taking Yes montelukast (SINGULAIR) 10 mg tablet Take 1 tablet by mouth daily at bedtime. Taking Yes Ibuprofen 200 mg cap Take by mouth as needed. ON HOLD Medication Comments documented by Yolanda Lau MA on 03/23/2019 at 0939. Taking OTC Calcium and B-12 prn Uses CBD oil ALLERGIES Allergen Reactions - Amoxicillin Rash - Carbamazepine Rash - Codeine Vomiting - Demerol [Meperidine* Intolerance - Neurontin [Gabapent* Dizziness, feeling like I couldn't work - Percocet [Oxycodone* Vomiting - Tegretol [Carbamaze* Vomiting Dizziness, couldn't see straight Skin reaction when went in sun - Tramadol Vomiting - Vicodin [Hydrocodon* Vomiting - Vioxx [Rofecoxib] Rash REVIEW OF SYSTEMS: PAIN ASSESSMENT: Pain Pain Level: 3 Pain Location: Jaw Description: Pressure General: Denies fever, chills, and unexpected weight change. Neuro: See HPI Respiratory: +SREEKANTH +hx of pneumonia Denies SOB and cough Cardiovascular: +htn Denies CP and palpitations. GI: Denies abd pain and N/V/D. : Denies dysuria and frequency. Endocrine: No history of diabetes +hypothyroidism Hematology: Denies history of bleeding or clotting disorder. Musculoskeletal: Denies joint pain and swelling. Skin: Denies open sores and rashes. Objective PHYSICAL EXAM: VITALS: BP 148/79 Pulse 60 Temp 97.1 Resp 16 Ht 5' 7 (1.70m) Wt 207 lb (93.9kg) SpO2 96% BMI 32.41 kg/(m2). General: NAD. Cooperative. Skin: Skin is warm, no rashes, and no open sores. HEENT: Normocephalic. PERRL, neck supple Cardiovascular: Normal S1 AND S2. RRR, No murmur. Lungs: CTA Bilaterally. No respiratory distress. Abdomen: Soft, non-tender, non-distended, +BS throughout Extremities: No edema. Neurological: Alert and oriented to person, place, and time. Pulses: radial/pedal pulses +2 Bilaterally Diagnostic tests reviewed for today's visit: Lab Value Units Date High Low HB No results within date range. HCT No results within date range. WBC No results within date range. PLT No results within date range. NA 139 mmol/L 04/14/2019 144 136 K 4.2 mmol/L 04/14/2019 5.1 3.7 GLUC 92 mg/dL 04/14/2019 99 74 BUN 17 mg/dL 04/14/2019 21 7 CREAT 0.90 mg/dL 04/14/2019 0.96 0.58 PTSEC No results within date range. INR No results within date range. APTT No results within date range. ALT 15 U/L 04/14/2019 38 7 AST 18 U/L 04/14/2019 35 13 TBILI 0.2 mg/dL 04/14/2019 1.3 0.2 TSH 3.190 uU/mL 04/14/2019 5.500 0.400 Lab Value Units Date High Low HCGQT No results within date range. UHCG No results within date range. HCG, BODY* No results within date range. Lab Value Units Date High Low ABORHD No results within date range. ABSCREEN No results within date range. No results found for: HBA1C PENDING METS: Walk a block or two on level ground (2.75 METs) Patient denies any chest pain or undue shortness of breath with the above physical activity. ANESTHESIA FINDINGS: Intubation History: No history of difficult intubation Significant Anesthesia Considerations: Postop nausea/vomiting and Slow emergence Severe sleep apnea per Dr. Singh, moderate risk for apnea hypoxia hypercarbia, especially with sedation. Assessment/Plan Patient has the following medical conditions which may affect memo-operative course HTN - bp in pst was 148/79. Pt follows with PCP for management SREEKANTH - Patient is using CPAP/BIPAP Advised to bring CPAP/BIPAP machine to hospital. Pulmonary clearance in chart and in [facility] Assessment: Trigeminal neuralgia [G50.0] Planned Procedure: RIGHT REVISION MICROVASCULAR DECOMPRESSION OF TRIGEMINAL NERVE, RETROSIGMOID APPROACH MICROSURGICAL TECHNIQUE FOR CRANIOTOMY PROCEDURES STEREOTACTIC COMPUTER-ASSISTED NAVIGATIONAL PROCEDURE CRANIAL at the request of Dr. Mlili Juárez Planned Anesthetic: General The Following Tests/Procedures Have Been Initiated: MRSA CBC T+S BMP URINE CULTURE PT PTT CXR ECG - completed in pst by OVEN OPERATOR AUTOMATIC CONSULTS: Medical clearance requested from Imelda Jain CNP, which is in chart and in [facility] Pulmonary clearance requested from Dr. Tyler Singh, which is in chart and in [facility] Instructions Given to Patient: Patient given verbal and written preop instructions and voices comprehension and compliance. SIGNATURE: Vini Cartagena APRN.[place] PATIENT NAME: Kate Oreilly DATE: May 05, 2019 TIME: 9:33 AM PAGER/CONTACT #: Normal [facility] Hemogramon 05-05-2019 Erythrocyte distribution width (RBC) [Ratio] 13.2 % Normal 11.7-14.4 [facility] Comment on above: Performed By: #### C BC1 #### [facility] [address] [place], [place] [address] Hematocrit (Bld) [Volume fraction] 45.7 % High 34.1-44.9 [facility] Comment on above: Performed By: #### C BC1 #### [facility] [address] [place], [place] [address] Hemoglobin (Bld) [Mass/Vol] 14.2 g/dL Normal 11.2-15.7 [facility] Comment on above: Performed By: #### C BC1 #### [facility] [address] [place], [place] [address] MCH (RBC) [Entitic mass] 28.0 pg Normal 25.6-32.2 [facility] Comment on above: Performed By: #### C BC1 #### [facility] [address] [place], [place] [address] MCHC (RBC) [Mass/Vol] 31.1 % Low 31.6-34.8 [facility] Comment on above: Performed By: #### C BC1 #### [facility] [address] [place], [place] [address] MCV (RBC) [Entitic vol] 90.1 fL Normal 79.4-94.8 [facility] Comment on above: Performed By: #### C BC1 #### [facility] [address] [place], [place] [address] Platelet mean volume (Bld) [Entitic vol] 12.5 fL High 9.4-12.3 [facility] Comment on above: Performed By: #### C BC1 #### [facility] [address] [place], [place] [address] Platelets (Bld) [#/Vol] 213 thou/cmm Normal 182-369 [facility] Comment on above: Performed By: #### C BC1 #### [facility] [address] [place], [place] [address] RBC (Bld) [#/Vol] 5.07 mil/cmm Normal 3.93-5.22 [facility] Comment on above: Performed By: #### C BC1 #### [facility] [address] [place] [address] RDW SD 43.4 fl Normal 36.4-46.3 [facility] Comment on above: Performed By: #### C BC1 #### [facility] [address] [place] [address] WBC (Bld) [#/Vol] 6.97 thou/cmm Normal 3.98-10.04 [facility] Comment on above: Performed By: #### C BC1 #### [place] [address] MDRD GFRon 05-05-2019 GFR/1.73 sq M predicted among non-blacks MDRD (S/P/Bld) [Vol rate/Area] mL/min/{1.73_m2} Normal >60mL/min/1 .73m2 [facility] Comment on above: Result Comment: If t he patient is , multiply the result by 1.210. Performed By: #### G FR #### [place] [address] MRSA Screenon 05-05-2019 MRSA DNA LANDON+probe Ql (Unsp spec) Test performed at [facility] No MRSA detected. Normal [facility] Comment on above: Performed By: #### M RSA #### [place] [address] Protimeon 05-05-2019 INR Coag (PPP) [Relative time] 0.96 {INR} Normal 0.90-1.30 [facility] Comment on above: Result Comment: Edel min K Antagonist (VKA) Therapeutic Range: INR 2 to 3 (Target INR of 2.5) Note: For patients treated with VKA drugs, such as warfarin, the [employer] 2012 Guideline recommends a therapeutic INR range of 2 to 3 (target INR of 2.5). This recommendation includes high-risk patients with antiphospholipid syndrome with previous arterial or venous thromboembolism, current-generation mechanical or bioprosthetic aortic heart valve replacement. Note: Patients with mechanical aortic valve replacement and additional risk factors for thromboembolic events (atrial fibrillation, previous thromboembolism, LV dysfunction, hypercoagulable conditions) or an older generation mechanical AVR (i.e., ball in-Cage) or any mechanical MVR should have a INR therapeutic range of 2.5 to 3.5 target INR of 3). Venus GH, et al. Chest 2012; 141:7S-47S Gucci HUNT et al. [facility] 2017; 70: 252-289 Performed By: #### M PT #### [facility] [address] [place] [address] PT Coag (PPP) [Time] 10.1 s Normal 9.7-13.0 [facility] Comment on above: Performed By: #### M PT #### [place] [address] Type and Screenon 05-05-2019 ABO group Nom (Bld) A Normal [facility] Comment on above: Performed By: #### T &S #### [place] [address] Comment PAT specimen Normal [facility] Comment on above: Performed By: #### T &S #### [place] [address] RH Type Positive Normal [facility] Comment on above: Performed By: #### T &S #### [place] [address] XR CHEST 2V FRONTAL/LATon XR CHEST 2V FRONTAL/LAT * * *Final Report* * * DATE OF EXAM: May 05 2019 11:21AM [id number] - XR CHEST 2V FRONTAL/LAT / PROCEDURE REASON: multiple diagnoses * * * * Physician Interpretation * * * * EXAMINATION: CHEST RADIOGRAPH (2 VIEW FRONTAL & LATERAL) CLINICAL HISTORY: Meningioma (HCC) Neck pain MQ: XC2_5 Comparison: None RESULT: Lines, tubes, and devices: None. Lungs and pleura: No consolidation. No lung mass. No pleural effusion. Cardiomediastinal silhouette: Normal cardiomediastinal silhouette. Other: . IMPRESSION: No acute radiographic abnormality. Curing Machine Operator: GEMA Transcribe Date/Time: May 07 2019 3:01P Dictated by : JEFRY BENAVIDES MD This examination was interpreted and the report reviewed and electronically signed by: JEFRY BENAVIDES MD on May 07 2019 3:01PM [facility] HOSPon 04-20-2019 HOSP Patient:Lianet Oreilly MRN: Height:5' 7(1.702 m) Weight:207 lb (93.895 kg) Outpatient Medications as of 05/12/19: acetaminophen (TYLENOL) 325 mg tablet topiramate (TOPAMAX) 25 mg tablet levothyroxine (SYNTHROID) 75 mcg tablet atenolol (TENORMIN) 50 mg tablet montelukast (SINGULAIR) 10 mg tablet Ibuprofen 200 mg cap Admission/Clinic Administered Medications as of 05/12/19: remifentanil 1,000 mcg in NaCl 0.9% 40 mL vancomycin 1,000 mg in D5W 250 mL (VANCOCIN) Problem List: Other chronic sinusitis [J32.8] Trigeminal neuralgia [G50.0] FAMILY HISTORY OF GI NEOPLASM [Z80.0] Hyperlipidemia, mixed [E78.2] Hypothyroidism [E03.9] Unspecified sleep apnea [G47.30] Vitamin D deficiency [E55.9] Meningioma (HCC) [D32.9] Essential hypertension, benign [I10] Low back pain [M54.5] Allergies: Amoxicillin Carbamazepine Codeine Demerol [Meperidine Hcl] Neurontin [Gabapentin] Percocet [Oxycodone-Acetaminophen] Tegretol [Carbamazepine Analogues] Tramadol Vicodin [Hydrocodone-Acetaminophen ] Vioxx [Rofecoxib] Date Verified: 05/12/19 Lab Values Lab Value Units Date High Low POTA* 4.6 mEq/L 05/05/2019 5.1 3.5 ROB* 45.7 % 05/05/2019 44.9 34.1 Progress Notes ([facility]): Lupe Sapp Ma 05/05/2019 2:54 PM Signed Type of letter/form/fax request - pre op form-Right revision microvascular decompression Form received from fax on 1 floor and placed on MD desk () for completion. [facility]. Route to NEO when form completed for processing Kenn Beauchamp MD 05/05/2019 5:04 PM Signed Form signed; cleared for surgery MD Yolanda Vargas MA 05/08/2019 9:48 AM Signed Form has been faxed. Yolanda Lau MA Progress Notes ([facility]): Imelda BALBIR Jain 05/02/2019 3:58 PM Signed Patient presents with: Pre-Op Exam HPI: Kate Oreilly is a 74 year old female who presents to the office today for review of health conditions. She is an established patient of Dr. Beauchamp and new to me today. Concerns today: She is in need of a pre-operative exam prior to surgery on her right trigeminal nerve in 10 days (05/12/19). She has had surgery on this nerve approximately 9 years ago, but over the past year has developed the severe pain in the right side of her face again. These 10/10 shocks last from 40-60 seconds and come numerous times throughout the day. Are typically triggered by touching her face, brushing her teeth, eating, or at times she is unable to note a trigger. In the past, she has tried multiple medications, injections, and acupuncture, but none of these are working at this time. She states that she has scar tissue from the last surgery developing as well as a blood vessel pressing on this nerve. Last 3 Encounter BP Readings: Date: BP: 05/02/2019 120/66 04/17/2019 146/71 03/23/2019 118/80 PAST MEDICAL HISTORY Diagnosis Date - Diverticulosis of colon (without mention of hemorrhage) - Family history of malignant neoplasm of gastrointestinal tract - Head injury 09/30 trip fall - HTN (hypertension) - Internal hemorrhoids without mention of complication - SREEKANTH (obstructive sleep apnea) - Other and unspecified hyperlipidemia - Pneumonia 07/2011 - Snoring - Trigeminal neuralgia PAST SURGICAL HISTORY Procedure Laterality Date - BX OF BREAST; INCISIONAL Bx of breast, incisional - COLONOSCOP W/ OR W/O BRSH SPEC 03/12/08 - COLONOSCOP W/ OR W/O BRSH SPEC 02/05/14 Colonoscopy - COLONOSCOP W/ OR W/O BRSH SPEC 05/20/15 Colonoscopy - COLONOSCOP W/ OR W/O BRSH SPEC 01/23/2019 Colonoscopy - PAST SURGICAL HISTORY OF 09/03/2010 CRANIECTOMY EXCISON TUMOR, INFRATENTORIAL OR POST FOSSA, MENIGIOMA - PAST SURGICAL HISTORY OF 05/06/2011 right MVD fro [place] - REMOVAL OF TONSILS,<12 Y/O Tonsillectomy - REMV CATARACT EXTRACAP,INSERT LENS 2012 Cataract Extraction with PC IOL - REMV CATARACT EXTRACAP,INSERT LENS 2012 Cataract Extraction with PC IOL Social History Tobacco Use - Smoking status: Never Smoker - Smokeless tobacco: Never Used Substance Use Topics - Alcohol use: No - Drug use: No FAMILY HISTORY Problem Relation Age of Onset - Alzheimer's Disease Mother - Heart Mother pacemaker - Stroke Mother - Heart Father VALVE REPLACEMENT,PACE MAKER - Heart Sister - Heart Brother - Heart Brother - Colon Cancer Sister - Breast Cancer Sister - Breast Cancer Daughter Allergies: ALLERGIES Allergen Reactions - Amoxicillin Rash - Carbamazepine Rash - Codeine Vomiting - Demerol [Meperidine* Intolerance - Neurontin [Gabapent* Dizziness, feeling like I couldn't work - Percocet [Oxycodone* Vomiting - Tegretol [Carbamaze* Vomiting Dizziness, couldn't see straight Skin reaction when went in sun - Tramadol Vomiting - Vicodin [Hydrocodon* Vomiting - Vioxx [Rofecoxib] Rash Current Meds: topiramate (TOPAMAX) 25 mg tablet Take 50 mg by mouth twice daily. levothyroxine (SYNTHROID) 75 mcg tablet Take 1 tablet by mouth once daily. atenolol (TENORMIN) 50 mg tablet Take 1 tablet by mouth once daily. montelukast (SINGULAIR) 10 mg tablet Take 1 tablet by mouth daily at bedtime. Ibuprofen 200 mg cap Take by mouth. Cholecalciferol, Vitamin D3, 2,000 unit cap Take 1 tablet by mouth once daily. Review of Systems Constitutional: Negative. HENT: Negative. Face/trigeminal nerve pain Eyes: Negative. Respiratory: Negative. Cardiovascular: Negative. Gastrointestinal: Negative. Endocrine: Negative. Genitourinary: Negative. Musculoskeletal: Negative. Neurological: Negative. Hematological: Negative. Psychiatric/Behavioral: Negative. PE: 05/02/19 1448 BP: 120/66 Pulse: 68 Resp: 16 Temp: 36.7 ?C (98 ?F) SpO2: 98% Weight: 94.3 kg (208 lb) Physical Exam Constitutional: Appearance: Normal appearance. HENT: Head: Normocephalic and atraumatic. Right Ear: Tympanic membrane, ear canal and external ear normal. Left Ear: Tympanic membrane, ear canal and external ear normal. Nose: Nose normal. Mouth/Throat: Mouth: Mucous membranes are moist. Pharynx: Oropharynx is clear. Eyes: Pupils: Pupils are equal, round, and reactive to light. Neck: Musculoskeletal: Normal range of motion and neck supple. Cardiovascular: Rate and Rhythm: Normal rate and regular rhythm. Pulmonary: Effort: Pulmonary effort is normal. Breath sounds: Normal breath sounds. Abdominal: General: Bowel sounds are normal. Palpations: Abdomen is soft. Musculoskeletal: Normal range of motion. Skin: General: Skin is warm and dry. Capillary Refill: Capillary refill takes 2 to 3 seconds. Neurological: General: No focal deficit present. Mental Status: She is alert. Mental status is at baseline. She is disoriented. Psychiatric: Mood and Affect: Mood normal. Behavior: Behavior normal. Thought Content: Thought content normal. ASSESSMENT/PLAN: 1. Pre-op exam - ICD9: V72.84, ICD10: Z01.818 (primary diagnosis) Physical exam WNL. Clear for surgery from my standpoint. However, awaiting pre-op testing that is to be performed this Wednesday (05/05) and sent to me from [facility]. 2. Trigeminal neuralgia - ICD9: 350.1, ICD10: G50.0 Surgery scheduled for 05/12/19 at [facility]. Imelda Jain APRN.VALUE STREAM MANAGER To ER if develops chest pain, shortness of breath, or severe worsening of symptoms. Discussed risks, benefits, alternatives, and potential side effects of medications. Patient expressed understanding and agreed with the plan. Imelda Jain APRN.VALUE STREAM MANAGER [address] [place] [address] Normal [facility] CNCOon 04-17-2019 CNCO Letter Text Normal [facility] CNOVon 04-17-2019 CNOV Office Visit ([facility] ) -- KATE OREILLY ([id number]) 1945 F Date Time Provider Department 04/17/19 10:00 AM MILLI JUÁREZ During your visit today, we recorded the following information about you: Pulse Respiration Blood pressure Weight 67/minute 16/minute 146/71 93.4 kg Height 1.702 m Milli Juárez MD 04/17/2019 1:29 PM Signed NEUROSURGERY CONSULT NOTE Milli Juárez MD Date of visit: April 17, 2019 Patient Name: Ms.Dorothy Paty Oreilly Date of : 1945 Current Age: [age] year old Sex: female MRN/E# [id number] Last Office Visit: Visit date not found Chief Complaint: No chief complaint on file. HISTORY OF PRESENT ILLNESS : The patient is a 74 year old, right handed female who is referred by Dr. Cabrera Neurologist for neurosurgical evaluation. Kate Oreilly presents to the office today for trigeminal nerve pain. Patient was referred by Rick neurology Today patient c/o right jaw pain about 10 years ago and MRI was performed. They found meningioma and performed surgery then 3 months later performed trigeminal nerve surgery. Patient right jaw pain returned 1 1/2 years ago, with increasing pain over the last couple weeks. Pain to jaw so severe at night that she can not sleep. Patient c/o right ear pressure, and slight nasal bleeding at times. Patient also c/o dizziness at times. Patient is here for evaluation AND plan of care. Symptoms: right jaw pain > right neck pain; neck pain radiates to right shoulder without numbness or tingling; right jaw pain with continuous numbness and tingling PREVIOUS CONSERVATIVE TREATMENTS: No recent PT or injections Gabapentin- side effects and stopped PREVIOUS SURGERY: SURGERY #1: Dr. Choe (Brain Tumor) who performed craniectomy for exploration of decompression cranial nerves surgery for trigeminal neuralgia 2009 PAIN EVALUATION No data found in the last 1 encounters. PAST MEDICAL HISTORY Diagnosis Date - Diverticulosis of colon (without mention of hemorrhage) - Family history of malignant neoplasm of gastrointestinal tract - Head injury 09/30 trip fall - HTN (hypertension) - Internal hemorrhoids without mention of complication - SREEKANTH (obstructive sleep apnea) - Other and unspecified hyperlipidemia - Pneumonia 07/2011 - Snoring PAST SURGICAL HISTORY Procedure Laterality Date - BX OF BREAST; INCISIONAL Bx of breast, incisional - COLONOSCOP W/ OR W/O [facility] 03/12/08 - COLONOSCOP W/ OR W/O [facility] 02/05/14 Colonoscopy - COLONOSCOP W/ OR W/O [facility] 05/20/15 Colonoscopy - COLONOSCOP W/ OR W/O [facility] 01/23/2019 Colonoscopy - PAST SURGICAL HISTORY OF 09/03/2010 CRANIECTOMY EXCISON TUMOR, INFRATENTORIAL OR POST FOSSA, MENIGIOMA - PAST SURGICAL HISTORY OF 05/06/2011 right MVD fro [place] - REMOVAL OF TONSILS,<12 Y/O Tonsillectomy - REMV CATARACT EXTRACAP,INSERT LENS 2012 Cataract Extraction with PC IOL - REMV CATARACT EXTRACAP,INSERT LENS 2012 Cataract Extraction with PC IOL FAMILY HISTORY Problem Relation Age of Onset - Alzheimer's Disease Mother - Heart Father VALVE REPLACEMENT,PACE MAKER - Heart Sister - Heart Brother - Heart Brother - Colon Cancer Sister - Breast Cancer Sister - Heart Mother pacemaker - Stroke Mother - Breast Cancer Daughter ALLERGIES Allergen Reactions - Amoxicillin Rash - Carbamazepine Rash - Codeine Vomiting - Demerol [Meperidine* Intolerance - Neurontin [Gabapent* Dizziness, feeling like I couldn't work - Percocet [Oxycodone* Vomiting - Tegretol [Carbamaze* Vomiting Dizziness, couldn't see straight Skin reaction when went in sun - Tramadol Vomiting - Vicodin [Hydrocodon* Vomiting - Vioxx [Rofecoxib] Rash Current Outpatient Medications Medication Sig Dispense Refill - topiramate (TOPAMAX) 25 mg tablet Take 25 mg by mouth twice daily. 3 - levothyroxine (SYNTHROID) 75 mcg tablet Take 1 tablet by mouth once daily. 90 tablet 3 - atenolol (TENORMIN) 50 mg tablet Take 1 tablet by mouth once daily. 90 tablet 3 - montelukast (SINGULAIR) 10 mg tablet Take 1 tablet by mouth daily at bedtime. 90 tablet 3 - Ibuprofen 200 mg cap Take by mouth. - Cholecalciferol, Vitamin D3, 2,000 unit cap Take 1 tablet by mouth once daily. 0 No current facility-administered medications for this visit. REVIEW OF SYSTEMS Review of Systems Constitutional: Negative for chills, fatigue, fever and unexpected weight change. HENT: Negative for congestion, ear discharge, ear pain and sinus pressure. Eyes: Negative for discharge and itching. Respiratory: Negative for cough, shortness of breath and wheezing. Cardiovascular: Negative for chest pain, palpitations and leg swelling. Gastrointestinal: Negative for constipation, diarrhea and nausea. Endocrine: Negative for cold intolerance and heat intolerance. Genitourinary: Negative for dysuria, frequency and urgency. Musculoskeletal: Positive for neck pain. Negative for back pain and gait problem. Allergic/Immunologic: Negative for environmental allergies and food allergies. Neurological: Positive for dizziness and numbness. Negative for weakness. Hematological: Does not bruise/bleed easily. Psychiatric/Behavioral: Negative for agitation. The patient is not nervous/anxious. OBJECTIVE: There were no vitals taken for this visit. Physical Exam Constitutional: She is oriented to person, place, and time and well-developed, well-nourished, and in no distress. HENT: Head: Normocephalic. Eyes: Pupils are equal, round, and reactive to light. EOM are normal. No nystagmus. Neck: Normal range of motion. Pulmonary/Chest: Effort normal. Abdominal: Soft. Musculoskeletal: Normal range of motion. Neurological: She is alert and oriented to person, place, and time. Gait normal. Reflex Scores: Tricep reflexes are 2+ on the right side and 2+ on the left side. Bicep reflexes are 2+ on the right side and 2+ on the left side. Skin: Skin is warm and dry. Psychiatric: Her speech is normal. Affect normal. Neurological Exam Mental Status Alert. Recent and remote memory are intact. Speech is normal. Language is fluent with no aphasia. Attention and concentration are normal. Cranial Nerves CN II: Visual acuity is normal. CN III, IV, : Extraocular movements intact bilaterally. No nystagmus. Pupils equal round and reactive to light bilaterally. CN V: Right: Facial sensation is normal. Left: Facial sensation is normal on the left. CN VII: Right: There is no facial weakness. Left: There is no facial weakness. CN VIII: Hearing is normal. CN IX, X: Palate elevates symmetrically CN XI: Shoulder shrug strength is normal. CN XII: Tongue midline without atrophy or fasciculations. Motor Right Left Elbow flexion 5 5 Elbow extension 5 5 Wrist extension 5 5 Finger flexion 5 5 Finger abduction 5 5 Toe extension 5 Sensory Light touch abnormality: Cheeks. Reflexes Right Left Biceps 2+ 2+ Triceps 2+ 2+ Right pathological reflexes: Kris's absent. Left pathological reflexes: Kris's absent. Coordination Right: Fldghk-ph-iahj normal. Left: Znmhfy-mm-afaa normal. Gait Normal casual, toe, heel and tandem gait. Casual gait is normal including stance, stride, and arm swing. Normal gait. Normal tandem gait. Romberg is absent. Data Review IMAGING STUDIES: MRI brain with AND without IV CON performed on 03/30/2019. Findings were noted as IMPRESSION: Status post right temporal craniotomy with an enhancing 7 mm lesion in the right ambient cistern adjacent to the cisternal segment of the right trigeminal nerve. Residual epidural fibrosis or a meningioma in this location could give this appearance. MRA brain 03/30/2019: IMPRESSION: Normal MRA of the head. Personal review of medical records: I reviewed with the patient, history, physical exam, the images and the chart. This is a 74-year-old female who presents with recurrence of her right V3 distribution trigeminal neuralgia pain. She had underwent a aggressive decompression in [address] Kristal Choe where a Denilson pad was placed between the nerve and traversing vessel. I have discussed her case with Dr. Harrison to see if she would be candidate for gamma knife surgery. Unfortunately she does not have a clear pathway of her trigeminal nerve for targeting and so a repeat microvascular decompression would be the best option. We discussed that if there was not a clear vessel on the nerve during the decompression that cutting two thirds of the nerve fibers may be indicated to help prevent her trigeminal neuralgia pain from continuing with the understanding that that would lead to permanent numbness in that territory. The patient stated that numbness would be an acceptable risk to her with the understanding that it can be quite distracting/irritating to patients who have numbness in that region. Will plan for a revision right MVD surgical case to be scheduled with both Dr. Harrison and myself. Milli Juárez MD Neurosurgery April 17, 2019 1:29 PM Referring Provider: TRUMAN CABRERA [[id number]] Allergies As of Date: 04/17/2019 Noted Allergy Reaction AMOXICILLIN 03/30/2005 2 - Rash CARBAMAZEPINE 11/10/2018 2 - Rash CODEINE 05/20/2011 11 - Vomiting DEMEROL (MEPERIDINE HCL) 03/30/2005 5 - Intolerance NEURONTIN (GABAPENTIN) 04/17/2009 Comments: Dizziness, feeling like I couldn't work PERCOCET (OXYCODONE-ACETAMINOPHEN)0 09/15/2010 11 - Vomiting TEGRETOL (CARBAMAZEPINE ANALOGUES)04/17/2009 11 - Vomiting Comments: Dizziness, couldn't see straight Skin reaction when went in sun TRAMADOL 09/15/2010 11 - Vomiting VICODIN (HYDROCODONE-ACETAMINOPHE* 09/15/2010 11 - Vomiting VIOXX (ROFECOXIB) 03/30/2005 2 - Rash Date Reviewed: 04/17/2019 Reviewed by: Damon Sosa) Ritchie - Fully Assessed Reason for Visit: New Patient Evaluation [154] Cmt: meningioma Primary Visit Diagnosis:Meningioma (HCC) [D32.9] Other Visit Diagnosis:Neck pain [M54.2] Order(s):CONSULT TO PRE-SURGICAL TESTING (AG) [0893199] Order #: [id number]: 1 HANDP FOR SURGERY [[id number]] Order #: [id number] CBC [SQCBC] Order #: [id number] FUTURE TYPE + SCREEN [SQTSCR] Order #: [id number] FUTURE BASIC METABOLIC PNL [SQBMP] Order #: [id number] FUTURE URINE CULTURE [SQURCUL] Order #: [id number] FUTURE PROTHROMBIN TIME/PT [SQPT] Order #: [id number] FUTURE ACTIVATED PTT [SQPTT] Order #: [id number] FUTURE XR CHEST 2V FRONTAL/LAT [8190860] Order #: [id number] FUTURE ECG COMPLETE [ECG01] Order #: [id number] FUTURE MRSA/STAPH AUREUS CULTURE SCRN [SQSANSAL] Order #: [id number] FUTURE vancomycin/0.9 % sod chloride (VANCOMYCIN IN 0.9 % SODIUM CHL) 1 gram/200 mL pgbkInject 1 g intravenously one time only for 1 dose. Administer within 1 hour of incision.Disp: 200 mLRfl: 0 Prescriptions as of 04/17/2019 Sig: TOPIRAMATE 25 MG TABLET Take 25 mg by mouth twice jacob* LEVOTHYROXINE 75 MCG TABLET Take 1 tablet by mouth once d* ATENOLOL 50 MG TABLET Take 1 tablet by mouth once d* MONTELUKAST 10 MG TABLET Take 1 tablet by mouth daily * IBUPROFEN 200 MG CAPSULE Take by mouth. VANCOMYCIN 1 GRAM/200 ML IN 0* Inject 1 g intravenously one * CHOLECALCIFEROL (VITAMIN D3) * Take 1 tablet by mouth once d* Patient not taking: Reported on 04/17/2019 Problem List As Of Date 04/17/2019 Noted Resolved CHRONIC SINUSITIS NEC [J32.8] INVALID FOR* TRIGEMINAL NEURALGIA [G50.0] INVALID FOR* FAMILY HISTORY OF GI NEOPLASM [Z80.0] INVALID FOR* Hyperlipidemia, mixed [E78.2] INVALID FOR* Hypothyroidism [E03.9] INVALID FOR* SLEEP APNEA NOS [G47.30] INVALID FOR* Vitamin D deficiency [E55.9] INVALID FOR* Meningioma [D32.9] INVALID FOR* Essential hypertension, benign [I10] INVALID FOR* Low back pain [M54.5] INVALID FOR* Prescriptions ordered this encounter Disp Refills Start End VANCOMYCIN 1 GRAM/200 ML IN 0.9 % SO* 200 * 0 04/17/2019 04/17/2019 Class: [facility] [place] [facility] Route: INTRAVENOUS Sig: Inject 1 g intravenously one time only for 1 dose. Administer within 1 hour of incision. Cosign accepted by MILLI JUÁREZ MD[[id number]] on 04/17/2019 12:05 PM Encounter Status:Closed by MILLI JUÁREZ MD on 04/17/19 [facility] PROGRESSon 04-17-2019 PROGRESS HNO ID: [id number] Author: Milli Juárez Service: ? Author Type: Physician Type: Progress Notes Filed: 04/17/2019 1:29 PM Note Text: NEUROSURGERY CONSULT NOTE Milli Juárez MD Date of visit: April 17, 2019 Patient Name: Ms.Dorothy Paty Oreilly Date of : 1945 Current Age: [age] year old Sex: female MRN/E# [id number] Last Office Visit: Visit date not found Chief Complaint: No chief complaint on file. HISTORY OF PRESENT ILLNESS : The patient is a 74 year old, right handed female who is referred by Dr. Cabrera Neurologist for neurosurgical evaluation. Kate Oreilly presents to the office today for trigeminal nerve pain. Patient was referred by Rick neurology Today patient c/o right jaw pain about 10 years ago and MRI was performed. They found meningioma and performed surgery then 3 months later performed trigeminal nerve surgery. Patient right jaw pain returned 1 1/2 years ago, with increasing pain over the last couple weeks. Pain to jaw so severe at night that she can not sleep. Patient c/o right ear pressure, and slight nasal bleeding at times. Patient also c/o dizziness at times. Patient is here for evaluation AND plan of care. Symptoms: right jaw pain > right neck pain; neck pain radiates to right shoulder without numbness or tingling; right jaw pain with continuous numbness and tingling PREVIOUS CONSERVATIVE TREATMENTS: No recent PT or injections Gabapentin- side effects and stopped PREVIOUS SURGERY: SURGERY #1: Dr. Choe (Brain Tumor) who performed craniectomy for exploration of decompression cranial nerves surgery for trigeminal neuralgia 2009 PAIN EVALUATION No data found in the last 1 encounters. PAST MEDICAL HISTORY Diagnosis Date - Diverticulosis of colon (without mention of hemorrhage) - Family history of malignant neoplasm of gastrointestinal tract - Head injury 09/30 trip fall - HTN (hypertension) - Internal hemorrhoids without mention of complication - SREEKANTH (obstructive sleep apnea) - Other and unspecified hyperlipidemia - Pneumonia 07/2011 - Snoring PAST SURGICAL HISTORY Procedure Laterality Date - BX OF BREAST; INCISIONAL Bx of breast, incisional - COLONOSCOP W/ OR W/O [facility] 03/12/08 - COLONOSCOP W/ OR W/O [facility] 02/05/14 Colonoscopy - COLONOSCOP W/ OR W/O [facility] 05/20/15 Colonoscopy - COLONOSCOP W/ OR W/O [facility] 01/23/2019 Colonoscopy - PAST SURGICAL HISTORY OF 09/03/2010 CRANIECTOMY EXCISON TUMOR, INFRATENTORIAL OR POST FOSSA, MENIGIOMA - PAST SURGICAL HISTORY OF 05/06/2011 right MVD fro [place] - REMOVAL OF TONSILS,<12 Y/O Tonsillectomy - REMV CATARACT EXTRACAP,INSERT LENS 2012 Cataract Extraction with PC IOL - REMV CATARACT EXTRACAP,INSERT LENS 2012 Cataract Extraction with PC IOL FAMILY HISTORY Problem Relation Age of Onset - Alzheimer's Disease Mother - Heart Father VALVE REPLACEMENT,PACE MAKER - Heart Sister - Heart Brother - Heart Brother - Colon Cancer Sister - Breast Cancer Sister - Heart Mother pacemaker - Stroke Mother - Breast Cancer Daughter ALLERGIES Allergen Reactions - Amoxicillin Rash - Carbamazepine Rash - Codeine Vomiting - Demerol [Meperidine* Intolerance - Neurontin [Gabapent* Dizziness, feeling like I couldn't work - Percocet [Oxycodone* Vomiting - Tegretol [Carbamaze* Vomiting Dizziness, couldn't see straight Skin reaction when went in sun - Tramadol Vomiting - Vicodin [Hydrocodon* Vomiting - Vioxx [Rofecoxib] Rash Current Outpatient Medications Medication Sig Dispense Refill - topiramate (TOPAMAX) 25 mg tablet Take 25 mg by mouth twice daily. 3 - levothyroxine (SYNTHROID) 75 mcg tablet Take 1 tablet by mouth once daily. 90 tablet 3 - atenolol (TENORMIN) 50 mg tablet Take 1 tablet by mouth once daily. 90 tablet 3 - montelukast (SINGULAIR) 10 mg tablet Take 1 tablet by mouth daily at bedtime. 90 tablet 3 - Ibuprofen 200 mg cap Take by mouth. - Cholecalciferol, Vitamin D3, 2,000 unit cap Take 1 tablet by mouth once daily. 0 No current facility-administered medications for this visit. REVIEW OF SYSTEMS Review of Systems Constitutional: Negative for chills, fatigue, fever and unexpected weight change. HENT: Negative for congestion, ear discharge, ear pain and sinus pressure. Eyes: Negative for discharge and itching. Respiratory: Negative for cough, shortness of breath and wheezing. Cardiovascular: Negative for chest pain, palpitations and leg swelling. Gastrointestinal: Negative for constipation, diarrhea and nausea. Endocrine: Negative for cold intolerance and heat intolerance. Genitourinary: Negative for dysuria, frequency and urgency. Musculoskeletal: Positive for neck pain. Negative for back pain and gait problem. Allergic/Immunologic: Negative for environmental allergies and food allergies. Neurological: Positive for dizziness and numbness. Negative for weakness. Hematological: Does not bruise/bleed easily. Psychiatric/Behavioral: Negative for agitation. The patient is not nervous/anxious. OBJECTIVE: There were no vitals taken for this visit. Physical Exam Constitutional: She is oriented to person, place, and time and well-developed, well-nourished, and in no distress. HENT: Head: Normocephalic. Eyes: Pupils are equal, round, and reactive to light. EOM are normal. No nystagmus. Neck: Normal range of motion. Pulmonary/Chest: Effort normal. Abdominal: Soft. Musculoskeletal: Normal range of motion. Neurological: She is alert and oriented to person, place, and time. Gait normal. Reflex Scores: Tricep reflexes are 2+ on the right side and 2+ on the left side. Bicep reflexes are 2+ on the right side and 2+ on the left side. Skin: Skin is warm and dry. Psychiatric: Her speech is normal. Affect normal. Neurological Exam Mental Status Alert. Recent and remote memory are intact. Speech is normal. Language is fluent with no aphasia. Attention and concentration are normal. Cranial Nerves CN II: Visual acuity is normal. CN III, IV, : Extraocular movements intact bilaterally. No nystagmus. Pupils equal round and reactive to light bilaterally. CN V: Right: Facial sensation is normal. Left: Facial sensation is normal on the left. CN VII: Right: There is no facial weakness. Left: There is no facial weakness. CN VIII: Hearing is normal. CN IX, X: Palate elevates symmetrically CN XI: Shoulder shrug strength is normal. CN XII: Tongue midline without atrophy or fasciculations. Motor Right Left Elbow flexion 5 5 Elbow extension 5 5 Wrist extension 5 5 Finger flexion 5 5 Finger abduction 5 5 Toe extension 5 Sensory Light touch abnormality: Cheeks. Reflexes Right Left Biceps 2+ 2+ Triceps 2+ 2+ Right pathological reflexes: Kris's absent. Left pathological reflexes: Kris's absent. Coordination Right: Nxvomc-cr-wcbw normal. Left: Gyjjae-hi-awcz normal. Gait Normal casual, toe, heel and tandem gait. Casual gait is normal including stance, stride, and arm swing. Normal gait. Normal tandem gait. Romberg is absent. Data Review IMAGING STUDIES: MRI brain with AND without IV CON performed on 03/30/2019. Findings were noted as IMPRESSION: Status post right temporal craniotomy with an enhancing 7 mm lesion in the right ambient cistern adjacent to the cisternal segment of the right trigeminal nerve. Residual epidural fibrosis or a meningioma in this location could give this appearance. MRA brain 03/30/2019: IMPRESSION: Normal MRA of the head. Personal review of medical records: I reviewed with the patient, history, physical exam, the images and the chart. This is a 74-year-old female who presents with recurrence of her right V3 distribution trigeminal neuralgia pain. She had underwent a aggressive decompression in [address] Kristal Choe where a Denilson pad was placed between the nerve and traversing vessel. I have discussed her case with Dr. Harrison to see if she would be candidate for gamma knife surgery. Unfortunately she does not have a clear pathway of her trigeminal nerve for targeting and so a repeat microvascular decompression would be the best option. We discussed that if there was not a clear vessel on the nerve during the decompression that cutting two thirds of the nerve fibers may be indicated to help prevent her trigeminal neuralgia pain from continuing with the understanding that that would lead to permanent numbness in that territory. The patient stated that numbness would be an acceptable risk to her with the understanding that it can be quite distracting/irritating to patients who have numbness in that region. Will plan for a revision right MVD surgical case to be scheduled with both Dr. Harrison and myself. Milli Juárez MD Neurosurgery April 17, 2019 1:29 PM [facility] Vital Signs Date Time Vital Sign Value Performing Clinician Facility 11-16-2024 07:50-0400 Body height 170.[address] Kenn Beauchamp MD Work Phone: [phone] [place] [address] 11-16-2024 07:50-0400 Body mass index (BMI) [Ratio] 31.9 kg/m2 Dr. Kenn Beauchamp MD Work Phone: [phone] [place] [address] 11-16-2024 07:50-0400 Body weight 92.[address] Kenn Beauchamp MD Work Phone: [phone] [place] [address] 11-16-2024 07:50-0400 Diastolic blood pressure 72 mm[Hg] Dr. Kenn Beauchamp MD Work Phone: [phone] [place] [address] 11-16-2024 07:50-0400 Heart rate 72 /min Dr. Kenn Beauchamp MD Work Phone: [phone] [place] [address] 11-16-2024 07:50-0400 Respiratory rate 16 /min Dr. Kenn Beauchamp MD Work Phone: [phone] [place] [address] 11-16-2024 07:50-0400 Systolic blood pressure 136 mm[Hg] Dr. Kenn Beauchamp MD Work Phone: [phone] [place] [address] 09-12-2024 08:25-0400 Body mass index (BMI) [Ratio] 31.32 kg/m2 Kenn Beauchamp MD Work Phone: [facility] 09-12-2024 08:25-0400 Body weight 90.7 kg Kenn Beauchamp MD Work Phone: [facility] 09-12-2024 08:25-0400 Diastolic blood pressure 72 mm[Hg] Kenn Beauchamp MD Work Phone: [facility] 09-12-2024 08:25-0400 Heart rate 68 /min Kenn Beauchamp MD Work Phone: [facility] 09-12-2024 08:25-0400 Respiratory rate 18 /min Kenn Beauchamp MD Work Phone: [facility] [facility] 09-12-2024 08:25-0400 Systolic blood pressure 128 mm[Hg] Kenn Beauchamp MD Work Phone: [facility] 09-01-2024 09:42-0400 Body mass index (BMI) [Ratio] 31.11 kg/m2 Bessy Yates APPLE CHECKER.VALUE STREAM MANAGER Work Phone: [facility] 09-01-2024 09:42-0400 Body weight 90.1 kg Bessy Yates APPLE CHECKER.VALUE STREAM MANAGER Work Phone: [facility] 09-01-2024 09:42-0400 Diastolic blood pressure 68 mm[Hg] Bsesy Duránhof APPLE CHECKER.VALUE STREAM MANAGER Work Phone: [facility] 09-01-2024 09:42-0400 Heart rate 71 /min Bessy Duránhof APPLE CHECKER.VALUE STREAM MANAGER Work Phone: [facility] 09-01-2024 09:42-0400 Respiratory rate 16 /min Bessy Duránhof APPLE CHECKER.VALUE STREAM MANAGER Work Phone: [facility] 09-01-2024 09:42-0400 SaO2% (BldA) [Mass fraction] 98 % Bessy Duránhopaty APPLE CHECKER.VALUE STREAM MANAGER Work Phone: [facility] 09-01-2024 09:42-0400 Systolic blood pressure 112 mm[Hg] Bessy Yates APPLE CHECKER.VALUE STREAM MANAGER Work Phone: [facility] 08-18-2024 07:13-0500 Body height 170.[address] Kenn Beauchamp MD Work Phone: [facility] 08-18-2024 07:13-0500 Body mass index (BMI) [Ratio] 30.7 kg/m2 Dr. Kenn Beauchamp MD Work Phone: [facility] 08-18-2024 07:13-0500 Body weight 88.[address] Kenn Beauchamp MD Work Phone: [facility] 08-18-2024 07:13-0500 Diastolic blood pressure 82 mm[Hg] Dr. Kenn Beauchamp MD Work Phone: [facility] 08-18-2024 07:13-0500 Heart rate 85 /min Dr. Kenn Beauchamp MD Work Phone: [facility] 08-18-2024 07:13-0500 Respiratory rate 18 /min Dr. Kenn Beauchamp MD Work Phone: [facility] 08-18-2024 07:13-0500 Systolic blood pressure 129 mm[Hg] Dr. Kenn Beauchamp MD Work Phone: [facility] 08-10-2024 08:53-0500 Body mass index (BMI) [Ratio] 31.25 kg/m2 Bessy Yates APPLE CHECKER.VALUE STREAM MANAGER Work Phone: [facility] 08-10-2024 08:53-0500 Body weight 90.5 kg Bessy Yates APPLE CHECKER.VALUE STREAM MANAGER Work Phone: [facility] 08-10-2024 08:53-0500 Diastolic blood pressure 68 mm[Hg] Bessy Yates APPLE CHECKER.VALUE STREAM MANAGER Work Phone: [facility] 08-10-2024 08:53-0500 Heart rate 71 /min Bessy Yates APPLE CHECKER.VALUE STREAM MANAGER Work Phone: [facility] 02-20-2025 08:53-0500 Respiratory rate 16 /min Bessy Yates APPLE CHECKER.VALUE STREAM MANAGER Work Phone: [facility] 08-10-2024 08:53-0500 SaO2% (BldA) [Mass fraction] 100 % Bessy Trudy APPLE CHECKER.VALUE STREAM MANAGER Work Phone: [facility] 08-10-2024 08:53-0500 Systolic blood pressure 136 mm[Hg] Bessy Yates APPLE CHECKER.VALUE STREAM MANAGER Work Phone: [facility] 03-16-2024 09:09-0400 Diastolic blood pressure 70 mm[Hg] Kenn Beauchamp MD Work Phone: [facility] Comment on above: rechecked 03-16-2024 09:09-0400 Systolic blood pressure 140 mm[Hg] Kenn Beauchamp MD Work Phone: [facility] Comment on above: rechecked 03-16-2024 09:06-0400 Body mass index (BMI) [Ratio] 31.97 kg/m2 Kenn Beauchamp MD Work Phone: [facility] 03-16-2024 09:06-0400 Body weight 92.6 kg Kenn Beauchamp MD Work Phone: [facility] 03-16-2024 09:06-0400 Heart rate 68 /min Kenn Beauchamp MD Work Phone: [facility] 03-16-2024 09:06-0400 Respiratory rate 16 /min Kenn Beauchamp MD Work Phone: [facility] 08-26-2023 11:10-0500 Body weight 93.44 kg Kenn Beauchamp MD Work Phone: [facility] 08-26-2023 11:10-0500 Diastolic blood pressure 72 mm[Hg] Kenn Beauchamp MD Work Phone: [facility] 08-26-2023 11:10-0500 Heart rate 68 /min Kenn Beauchamp MD Work Phone: [facility] 08-26-2023 11:10-0500 Respiratory rate 18 /min Kenn Beauchamp MD Work Phone: [facility] 08-26-2023 11:10-0500 Systolic blood pressure 134 mm[Hg] Kenn Beauchamp MD Work Phone: [facility] 02-16-2023 11:01-0400 Body weight 92.26 kg Kenn Beauchamp MD Work Phone: [facility] 02-16-2023 11:01-0400 Diastolic blood pressure 64 mm[Hg] Kenn Beauchamp MD Work Phone: [facility] 02-16-2023 11:01-0400 Heart rate 78 /min Kenn Beauchamp MD Work Phone: [facility] 02-16-2023 11:01-0400 Respiratory rate 16 /min Kenn Beauchamp MD Work Phone: [facility] 02-16-2023 11:01-0400 Systolic blood pressure 122 mm[Hg] Kenn Beauchamp MD Work Phone: [facility] 09-14-2022 15:34-0400 Body weight 95.25 kg Kenn Beauchamp MD Work Phone: [facility] 09-14-2022 15:34-0400 Diastolic blood pressure 82 mm[Hg] Kenn Beauchamp MD Work Phone: [facility] 09-14-2022 15:34-0400 Heart rate 88 /min Kenn Beauchamp MD Work Phone: [facility] 09-14-2022 15:34-0400 Respiratory rate 16 /min Kenn Beauchapm MD Work Phone: [facility] 09-14-2022 15:34-0400 Systolic blood pressure 140 mm[Hg] Kenn Beauchamp MD Work Phone: [facility] 09-05-2022 15:35-0400 Body temperature 97.9 [degF] MD Kenn Beauchamp [facility] 09-05-2022 15:35-0400 Diastolic blood pressure 67 mm[Hg] MD Kenn Beauchamp [facility] 09-05-2022 15:35-0400 Heart rate 96 /min MD [facility] 09-05-2022 15:35-0400 Respiratory rate 18 /min MD [facility] 09-05-2022 15:35-0400 SaO2% (BldA) [Mass fraction] 16 % MD [facility] 09-05-2022 15:35-0400 Systolic blood pressure 142 mm[Hg] MD [facility] 09-05-2022 05:36-0400 Body mass index (BMI) [Ratio] 35.6 kg/m2 MD [facility] 09-05-2022 05:36-0400 Body weight 103.2 kg MD [facility] 09-03-2022 15:30-0400 Body height 170.18 cm MD [facility] 09-01-2022 18:15-0400 Inhaled oxygen flow rate 2 L/min MD [facility] 08-30-2022 21:13-0400 Body temperature 97.7 [degF] MD [facility] 08-30-2022 21:13-0400 Diastolic blood pressure 70 mm[Hg] MD [facility] 08-30-2022 21:13-0400 Heart rate 85 /min MD [facility] 08-30-2022 21:13-0400 Respiratory rate 18 /min MD [facility] 08-30-2022 21:13-0400 SaO2% (BldA) [Mass fraction] 96 % MD [facility] 08-30-2022 21:13-0400 Systolic blood pressure 141 mm[Hg] MD [facility] 08-30-2022 13:07-0400 Body height 175.26 cm MD [facility] 08-30-2022 13:07-0400 Body mass index (BMI) [Ratio] 31.9 kg/m2 MD [facility] 08-30-2022 13:07-0400 Body weight 98.06 kg MD [facility] 05-21-2022 08:55-0500 Body height 175.26 cm [facility] Work Phone: 05-21-2022 08:55-0500 Body mass index (BMI) [Ratio] 31.6 kg/m2 MD [facility] 05-21-2022 08:55-0500 Body weight 97.06 kg MD [facility] 05-21-2022 08:55-0500 Diastolic blood pressure 71 mm[Hg] MD [facility] 05-21-2022 08:55-0500 Heart rate 94 /min MD [facility] 05-21-2022 08:55-0500 Respiratory rate 20 /min MD [facility] 05-21-2022 08:55-0500 SaO2% (BldA) [Mass fraction] 99 % MD [facility] 05-21-2022 08:55-0500 Systolic blood pressure 144 mm[Hg] MD [facility] 02-09-2022 15:16-0400 Body weight 97.7 kg Kenn Beauchamp MD Work Phone: [facility] 02-09-2022 15:16-0400 Diastolic blood pressure 74 mm[Hg] Kenn Beauchamp MD Work Phone: [facility] 02-09-2022 15:16-0400 Heart rate 78 /min Kenn Beauchamp MD Work Phone: [facility] 02-09-2022 15:16-0400 Respiratory rate 20 /min Kenn Beauchamp MD Work Phone: [facility] 02-09-2022 15:16-0400 Systolic blood pressure 128 mm[Hg] Kenn Beauchamp MD Work Phone: [facility] 11-10-2021 09:09-0400 Body weight 98.79 kg Kenn Beauchamp MD Work Phone: [facility] 11-10-2021 09:09-0400 Diastolic blood pressure 78 mm[Hg] Kenn Beauchamp MD Work Phone: [facility] 11-10-2021 09:09-0400 Heart rate 68 /min Kenn Beauchamp MD Work Phone: [facility] 11-10-2021 09:09-0400 Respiratory rate 18 /min Kenn Beauchamp MD Work Phone: [facility] 11-10-2021 09:09-0400 Systolic blood pressure 126 mm[Hg] Kenn Beauchamp MD Work Phone: [facility] Encounters Encounter Date Encounter Type Care Provider Facility Start: 12-12-2024 ambulatory Kenn Cooper y:[facility] Start: 11-16-2024 End: 11-16-[address] Kenn Beauchamp MD Work Phone: [facility] Work Phone: Start: 11-16-2024 End: 11-16-2024 Patient encounter procedure Natali PAULINO -Laboratory Work Phone: Start: 11-16-2024 End: 11-16-2024 Patient encounter procedure Natali PAULINO -[facility] Work Phone: Start: 11-16-2024 End: 11-16-[address] Kenn Beauchamp MD Work Phone: [facility] Work Phone: Start: 11-16-2024 End: 11-16-2024 ambulatory Natali PAULINO Facility:[facility] Start: 11-14-2024 End: 11-15-2024 Refill Kenn Beauchamp MD Work Phone: [facility] Comment on above: Refill Request Start: 09-28-2024 End: 11-28-2024 Follow-up encounter Kenn Beauchamp MD Work Phone: [facility] Start: 09-22-2024 End: 09-22-2024 ambulatory KENN BEAUCHAMP Facility:[facility] Start: 09-22-2024 End: 09-22-2024 Subsequent hospital visit by physician [facility] (I-Stat/1.5t) Work Phone: Radiology Comment on above: Trigeminal neuralgia [G50.0] Start: 09-14-2024 ambulatory Kenn Cooper y:[facility] Start: 09-14-2024 Non-patient / Non-visit Dr. Marissa KING -[facility] Start: 09-14-2024 End: 09-14-[address] Kenn Beauchamp MD Work Phone: [facility] Work Phone: Start: 09-14-2024 End: 09-14-2024 Patient encounter procedure Natali PAULINO -Cardiovascular Services Work Phone: Start: 09-14-2024 End: 09-14-2024 ambulatory Natali PAULINO Facility:[facility] Start: 09-12-2024 End: 09-12-2024 ambulatory KENN BEAUCHAMP Facility:[facility] Start: 09-12-2024 End: 09-12-2024 Office outpatient visit 25 minutes Kenn Beauchamp MD Work Phone: [facility] Comment on above: Essential hypertensi on, benign (Primary Dx); Hyperlipidemia, mixed; Elevated glucose; Hypothyroidism, unspecified type; Bilateral leg edema; Trigeminal neuralgia; Dizziness; Spinal stenosis of lumbar region, unspecified whether neurogenic claudication present; Unspecified sleep apnea; History of meningioma of the brain; History of resection of meningioma Start: 09-06-2024 End: 09-06-2024 Follow-up encounter Bessy Yates APRN.CNP Work Phone: [facility] Comment on above: Results Start: 09-04-2024 End: 09-04-2024 ambulatory KENN BEAUCHAMP Facility:[facility] Start: 09-01-2024 End: 09-01-2024 Subsequent hospital visit by physician [facility] Work Phone: Radiology Comment on above: Left sided sciatica [M54.32] Start: 09-01-2024 End: 09-01-2024 ambulatory [facility] Facility:[facility] Start: 09-01-2024 End: 09-01-2024 Office outpatient visit 25 minutes Bessyhilario Williamsonf APPLE CHECKER.VALUE STREAM MANAGER Work Phone: [facility] Comment on above: Left sided sciatica (Primary Dx) Start: 08-31-2024 End: 08-31-[address] Kenn Beauchamp MD Work Phone: [facility] Work Phone: Start: 08-31-2024 End: 08-31-[address] [facility] Start: 08-31-2024 End: 08-31-2024 [facility]ulatory [facility] Start: 08-28-2024 End: 08-28-2024 ambulatory Kenn Beauchamp MD Work Phone: [facility] Comment on above: Left sciatica pain Start: 08-18-2024 End: 08-18-2024 Patient encounter procedure Natali PAULINO -[facility] Work Phone: Start: 08-18-2024 End: 08-18-2024 ambulatory Natali PAULINO Facility:[facility] Start: 08-10-2024 End: 08-10-2024 Office outpatient visit 25 minutes Bessy Yates APPLE CHECKER.VALUE STREAM MANAGER Work Phone: [facility] Comment on above: Chest tightness (Ainsley saeid Dx); SOB (shortness of breath); Dizziness; Mitral annular calcification Start: 08-10-2024 End: 08-10-2024 ambulatory [facility] Facility:[facility] Start: 08-07-2024 End: 08-07-[address] Tyler Singh MD -Ltac[facility] Work Phone: Start: 08-07-2024 End: 08-07-2024 ambulatory Kenn Beauchamp Facility:[facility] Start: 08-04-2024 ambulatory Kenn Cooper y:[facility] Start: 08-04-2024 Non-patient / Non-visit Dr. Hanane Isaac MD -[facility] Start: 08-04-2024 End: 08-04-[address] Tyler Singh MD -Cardiovascular Services Work Phone: Start: 08-04-2024 End: 08-04-2024 ambulatory [facility] Facility:[facility] Start: 07-31-2024 End: 07-31-2024 Telephone encounter Kenn Beauchamp MD Work Phone: [facility] Comment on above: Patient Update Start: 07-10-2024 End: 07-10-[address] [facility] Start: 07-10-2024 End: 07-10-2024 ambulatory [facility] Facility:[facility] Start: 04-10-2024 End: 04-10-2024 [facility] Facility:[facility] Start: 03-16-2024 End: 03-16-2024 ambulatory [facility] Facility:[facility] Start: 03-16-2024 End: 03-16-2024 Office outpatient visit 25 minutes Kenn Beauchamp MD Work Phone: [facility] Comment on above: Trigeminal neuralgia (Primary Dx); Essential hypertension, benign; Screening for depression; Encounter for screening examination for other mental health and behavioral disorders; Encounter for immunization; Need for vaccination; Hypothyroidism, unspecified type; Hyperlipidemia, mixed; Bilateral leg edema; Elevated glucose Start: 03-06-2024 End: 03-06-2024 ambulatory [facility] Facility:[facility] Start: 01-10-2024 Refill Kenn truong MD Work Phone: [facility] Comment on above: Refill Request Start: 01-04-2024 Refill Gary OLSON RN.VALUE STREAM MANAGER Work Phone: [facility] Comment on above: Refill Request Start: 12-21-2023 Refill Kenn truong MD Work Phone: [facility] Comment on above: Refill Request Medication Problem Start: 10-11-2023 Refill Kenn truong MD Work Phone: [facility] Comment on above: Refill Request Start: 08-26-2023 End: 08-26-2023 Patient encounter procedure Kenn Beauchamp MD Work Phone: [facility] Comment on above: Essential hypertensi on, benign (Primary Dx); Trigeminal neuralgia; Hypothyroidism, unspecified type; Hyperlipidemia, mixed; Elevated glucose; Bilateral leg edema; Unspecified sleep apnea; Dizziness Start: 04-06-2023 Refill Kenn truong MD Work Phone: [facility] Comment on above: Refill Request Start: 02-16-2023 End: 02-16-2023 Patient encounter procedure Kenn Beauchamp MD Work Phone: [facility] Comment on above: Essential hypertensi on, benign (Primary Dx); Hypothyroidism, unspecified type; Hyperlipidemia, mixed; Bilateral leg edema; Spinal stenosis of lumbar region, unspecified whether neurogenic claudication present; Trigeminal neuralgia; Dizziness; Unspecified sleep apnea Start: 01-17-2023 Refill Gary OLSON RN.VALUE STREAM MANAGER Work Phone: [facility] Comment on above: Refill Request Start: 09-21-2022 Refill Kenn truong MD Work Phone: [facility] Comment on above: Refill Request Start: 09-14-2022 End: 09-14-2022 Patient encounter procedure Kenn Beauchamp MD Work Phone: [facility] Comment on above: Acute midline low ba ck pain with right-sided sciatica (Primary Dx); Spinal stenosis of lumbar region, unspecified whether neurogenic claudication present Start: 09-07-2022 Patient Outreach Kenn hernandez MD Work Phone: [facility] Comment on above: Transition Of Care Start: 09-05-2022 Non-patient / Non-visit MD Kristi Beauchamp [facility] Start: 09-04-2022 Non-patient / Non-visit MD Kristi Beauchamp [facility] Start: 09-04-2022 Non-patient / Non-visit MD Kristi Beauchamp [facility] Start: 09-04-2022 Non-patient / Non-visit MD Kristi Beauchamp [facility] Start: 09-03-2022 Non-patient / Non-visit MD Kristi Beauchamp [facility] Start: 09-03-2022 Non-patient / Non-visit MD Kristi Beauchamp [facility] Start: 09-03-2022 Non-patient / Non-visit MD Krsiti Beauchamp [facility] Start: 09-02-2022 Non-patient / Non-visit MD Kristi Beauchamp [facility] Start: 09-02-2022 Non-patient / Non-visit MD Kristi Beauchamp [facility] Start: 09-02-2022 Non-patient / Non-visit MD Kristi Beauchamp [facility] Start: 09-01-2022 Non-patient / Non-visit MD Kristi Beauchamp [facility] Start: 09-01-2022 Non-patient / Non-visit MD Kristi Beauchamp [facility] Start: 09-01-2022 Non-patient / Non-visit MD Kristi Beauchamp [facility] Start: 08-31-2022 End: 08-31-2022 Non-patient / Non-visit MD Kenn Beauchamp [facility] Start: 08-31-2022 Non-patient / Non-visit MD Kristi Beauchamp [facility] Start: 08-31-2022 Non-patient / Non-visit MD Kristi Beauchamp [facility] Start: 08-30-2022 [facility] Start: 08-30-2022 End: 09-05-2022 Evaluation and management of inpatient MD [facility] 3 Start: 07-27-2022 End: 07-27-2022 ambulatory Kenn Beauchamp MD Work Phone: [facility] Comment on above: COVID (Primary Dx) Start: 07-27-2022 End: 07-27-2022 Telemedicine consultation with patient Kenn Beauchamp MD Work Phone: [facility] Start: 05-21-2022 End: 05-21-[address] [facility] Work Phone: Start: 05-21-2022 End: 05-21-2022 Patient encounter procedure MD [facility] Start: 05-21-2022 End: 05-21-2022 Patient encounter procedure MD [facility] Start: 03-30-2022 Refill Kenn truong MD Work Phone: [facility] Comment on above: Refill Request Start: 02-09-2022 End: 02-09-2022 Patient encounter procedure Kenn Beauchamp MD Work Phone: [facility] Comment on above: Essential hypertensi on, benign (Primary Dx); Obesity, Class I, BMI 30-34.9; Bilateral leg edema; Hypothyroidism, unspecified type; Trigeminal neuralgia; Hyperlipidemia, mixed; Acute bronchitis, unspecified organism; Muscle strain of gluteal region, unspecified laterality, initial encounter Start: 01-12-2022 Refill Kenn truong MD Work Phone: [facility] Comment on above: Refill Request Start: 11-10-2021 End: 11-10-2021 Patient encounter procedure Kenn Beauchamp MD Work Phone: [facility] Comment on above: Essential hypertensi on, benign (Primary Dx); Bilateral leg edema; Hypothyroidism, unspecified type; Hyperlipidemia, mixed; Trigeminal neuralgia Start: 09-09-2020 End: 09-09-2020 Patient encounter procedure HUGH E [facility] Start: 08-15-2020 End: 08-15-2020 Patient encounter procedure HUGH Inderjit [facility] Procedures Date Procedure Procedure Detail Performing Clinician Start: 09-22-2024 Mri brain brain stem w/o w/contrast material Kenn Beauchamp MD Work Phone: Start: 09-14-2024 Radionuclide imaging of perfusion of myocardium under exercise stress Dr. Kenn Beauchamp MD Work Phone: Start: 08-31-2024 CT of chest without contrast Dr. Kenn Beauchamp MD Work Phone: Start: 08-18-2024 Evaluation of diagnostic study results Dr. Kenn Beauchamp MD Work Phone: Start: 08-10-2024 Ecg routine ecg w/least 12 lds i&r only [facility] Provider Start: 03-16-2024 PFIZER-BIONTECH COVID-19 VACCINE AGE 12+ YR (COMIRNATY) Kenn Beauchamp MD Work Phone: Start: 03-16-2024 Adult depression screening assessment Kenn Beauchamp MD Work Phone: Start: 09-01-2022 Cholangiogram MD Kenn Beauchamp OLS Start: 09-01-2022 Total cholecystectomy and exploration of common bile duct MD Kenn Beauchamp OLS Start: 09-01-2022 Fluoroscopic guidance MD Kenn Beauchamp OLS Start: 08-30-2022 CT of abdomen and pelvis without contrast MD Kenn Beauchamp Start: 08-30-2022 Plain chest X-ray MD Kenn Beauchamp Start: 08-30-2022 US scan of gallbladder MD Kenn Sky k Start: 02-09-2022 Adult depression screening assessment Kenn Beauchamp MD Work Phone: Start: 10-16-2020 Adult depression screening assessment Kenn Beauchamp MD Work Phone: Start: 05-05-2019 Antibody screen Comment on above: Performed By: #### T&S #### [place] [id number] Start: 05-05-2019 Electrocardiogram H/O: surgery History of resec tion of meningioma Kenn Beauchamp MD Work Phone: H/O: surgery History of resec tion of meningioma Mri (I-Stat/1.5t) Work Phone: History of cholecystectomy Statu s post cholecystectomy MD Kenn Beauchamp OLS History of cholecystectomy Statu s post laparoscopic cholecystectomy Dr. Kenn Beauchamp MD Work Phone: Comment on above: Patient arrives for first postoperative visit following laparoscopic cholecystectomy with intraoperative cholangiogram on 09/01/2022. Patient has done very well in her postoperative recovery from this operation and denies any abdominal discomfort. Further, on exam her wounds are well-healing. I have shared with patient and her family the final operative pathology as well as pictures from her cholangiogram. They expressed appreciation for this information and denies any further questions Plan of Treatment Date Care Activity Detail Author Start: 09-05-2027 [facility] 03-06-[facility]27 [facility] Start: 08-16-2026 Diabetes Screening Diabetes Screen[facility] Start: 02-08-2026 DIABETES SCREEN DIABETES SCREEN [facility] Start: 02-08-2026 Diabetes Screening Diabetes Screenms g [facility] Start: 09-12-2025 Annual PCP Team Product Technology Scientist flor Disease Visit Annual PCP Team Chronic Disease Visit [facility] Start: 09-12-2025 BP Controlled (<130/80) BP Controlle d (<130/80) [facility] Start: 09-01-2025 Annual PCP Team Product Technology Scientist flor Disease Visit Annual PCP Team Chronic Disease Visit [facility] Start: 09-01-2025 BP Controlled (<130/80) BP Controlle d (<130/80) [facility] Start: 08-10-2025 Annual PCP Team Product Technology Scientist flor Disease Visit Annual PCP Team Chronic Disease Visit [facility] Start: 03-16-2025 Annual PCP Team Product Technology Scientist flor Disease Visit Annual PCP Team Chronic Disease Visit [facility] Start: 03-16-2025 Anxiety Screening Anxiety Screening [facility] Start: 03-16-2025 Depression Screening Depression Scre ening [facility] Start: 03-16-2025 End: 03-16-2025 Patient encounter procedure 03/16/2025 9:40 AM EDT Office Visit Family [facility] [address] [place] [address] Kenn Beauchamp MD [address] [place], [place] [id number] [facility] Start: 03-15-2025 End: 06-14-2025 Comprehensive metabolic 2000 panel - Serum or Plasma COMPREHENSIVE METABOLIC PANEL Lab Routine Elevated glucose Expected: 03/15/2025 (Approximate), Expires: 06/14/2025 [facility] Work Phone: Comment on above: Expected: 03/15/2025 (Approximate), Expires: 06/14/2025 Start: 03-15-2025 End: 06-14-2025 Hemoglobin A1c in Blood HEMOGLOBIN A1C Lab Routine Elevated glucose Expected: 03/15/2025 (Approximate), Expires: 06/14/2025 [facility] Comment on above: Expected: 03/15/2025 (Approximate), Expires: 06/14/2025 Start: 03-15-2025 End: 06-14-2025 Thyrotropin [Units/volume] in Serum or Plasma THYROID STIMULATING HORMONE Lab Routine Hypothyroidism, unspecified type Expected: 03/15/2025 (Approximate), Expires: 06/14/2025 [facility] Comment on above: Expected: 03/15/2025 (Approximate), Expires: 06/14/2025 Start: 02-05-2025 DIABETES SCREEN DIABETES SCREEN [facility] Start: 01-03-2025 End: 01-03-2025 Patient encounter procedure 01/03/2025 1:40 PM EDT Office Visit Cardiology [address] [place] [address] [place] [address] [place] [address] Chest tightness [R07.89] Cardiology Comment on above: Chest tightness [R07 .89] Start: 11-16-2024 Evaluation of diagno stic study results [facility] Start: 09-22-2024 End: 09-22-2024 Patient encounter procedure 09/22/2024 9:00 AM EDT Appointment Radiology [address] [place] [place] [address] Trigeminal neuralgia [G50.0]; Dizziness [R42]; History of resection of meningioma [Z98.890, Z86.03] Radiology Comment on above: Trigeminal neuralgia [G50.0]; Dizziness [R42]; History of resection of meningioma [Z98.890, Z86.03] Start: 09-13-2024 End: 12-13-2024 Comprehensive metabolic 2000 panel - Serum or Plasma COMPREHENSIVE METABOLIC PANEL Lab Routine Hyperlipidemia, mixed Expected: 09/13/2024 (Approximate), Expires: 12/13/2024 [facility] Comment on above: Expected: 09/13/2024 (Approximate), Expires: 12/13/2024 Start: 09-13-2024 Covid-19 Vaccine () Covid-19 Vaccine () [facility] Start: 09-13-2024 End: 12-13-2024 Hemoglobin A1c in Blood HEMOGLOBIN A1C Lab Routine Elevated glucose Expected: 09/13/2024 (Approximate), Expires: 12/13/2024 [facility] Comment on above: Expected: 09/13/2024 (Approximate), Expires: 12/13/2024 Start: 09-13-2024 End: 12-13-2024 Lipid 1996 panel - Serum or Plasma LIPID PANEL BASIC Lab Routine Hyperlipidemia, mixed Expected: 09/13/2024 (Approximate), Expires: 12/13/2024 [facility] Work Phone: Comment on above: Expected: 09/13/2024 (Approximate), Expires: 12/13/2024 Start: 09-13-2024 End: 12-13-2024 Thyrotropin [Units/volume] in Serum or Plasma THYROID STIMULATING HORMONE Lab Routine Hypothyroidism, unspecified type Expected: 09/13/2024 (Approximate), Expires: 12/13/2024 [facility] Comment on above: Expected: 09/13/2024 (Approximate), Expires: 12/13/2024 Start: 09-12-2024 End: 09-12-2024 Patient encounter procedure 09/12/2024 8:40 AM EDT Office Visit Family [facility] [address] [place] [address] Kenn Beauchamp MD [address] [place] [address] 6 month follow up Family [facility] Comment on above: 6 month follow up Start: 09-01-2024 End: 09-01-2024 Patient encounter procedure 09/01/2024 10:00 AM EDT Office Visit Family [facility] [address] [place] [address] Bessy Yates, APPLE CHECKER.VALUE STREAM MANAGER [address] [place] [address] Left leg sciatica. See triage. Family [facility] Comment on above: Left leg sciatica. S ee triage. Start: 08-25-2024 Annual PCP Team Product Technology Scientist flor Disease Visit Annual PCP Team Chronic Disease Visit [facility] Start: 08-10-2024 End: 08-10-2024 Patient encounter procedure 08/10/2024 9:00 AM EST Office Visit Family [facility] [address] [place] [address] Bessy Yates, APPLE CHECKER.VALUE STREAM MANAGER [address] [place] [address] Follow up SOB, elevated BP. See 07/31/24 phone note. Family [facility] Comment on above: Follow up SOB, eleva larry BP. See 07/31/24 phone note. Start: 07-31-2024 DIABETES SCREEN DIABETES SCREEN [facility] Start: 06-21-2024 Advance Directive Discussion Advance Directive Discussion [facility] Start: 03-16-2024 End: 03-16-2024 Patient encounter procedure 03/16/2024 9:20 AM EDT Office Visit Family [facility] [place] [address] [place] [address] Kenn Beauchamp MD [address] [place] [address] 6 mof f/u [facility] Comment on above: 6 mof f/u Start: 02-26-2024 End: 05-27-2024 Comprehensive metabolic 2000 panel - Serum or Plasma COMP METABOLIC PANEL Lab Routine Essential hypertension, benign Hyperlipidemia, mixed Elevated glucose Bilateral leg edema Expected: 02/26/2024 (Approximate), Expires: 05/27/2024 [facility] Work Phone: Comment on above: Expected: 02/26/2024 (Approximate), Expires: 05/27/2024 Start: 02-26-2024 End: 05-27-2024 Hemoglobin A1c in Blood HGB A1C Lab Routine Elevated glucose Expected: 02/26/2024 (Approximate), Expires: 05/27/2024 [facility] Work Phone: Comment on above: Expected: 02/26/2024 (Approximate), Expires: 05/27/2024 Start: 02-26-2024 End: 05-27-2024 Lipid 1996 panel - Serum or Plasma LIPID PANEL BASIC Lab Routine Essential hypertension, benign Hyperlipidemia, mixed Elevated glucose Expected: 02/26/2024 (Approximate), Expires: 05/27/2024 [facility] Work Phone: Comment on above: Expected: 02/26/2024 (Approximate), Expires: 05/27/2024 Start: 02-26-2024 End: 05-27-2024 Thyrotropin [Units/volume] in Serum or Plasma TSH BLD Lab Routine Hypothyroidism, unspecified type Expected: 02/26/2024 (Approximate), Expires: 05/27/2024 [facility] Work Phone: Comment on above: Expected: 02/26/2024 (Approximate), Expires: 05/27/2024 Start: 02-20-2024 Influenza vaccination Influenza Vacc ine (#1) [facility] Start: 02-17-2024 ANNUAL PCP TEAM J2EE ENGINEER FLOR DISEASE VISIT ANNUAL PCP TEAM CHRONIC DISEASE VISIT [facility] Start: 02-17-2024 BP CONTROLLED (<130/80) BP CONTROLLE D (<130/80) [facility] Start: 09-15-2023 ANNUAL PCP TEAM J2EE ENGINEER FLOR DISEASE VISIT ANNUAL PCP TEAM CHRONIC DISEASE VISIT [facility] Start: 08-28-2023 Covid-19 Vaccine ( season) Covid-19 Vaccine () [facility] Start: 08-19-2023 End: 10-19-2023 Comprehensive metabolic 2000 panel - Serum or Plasma COMP METABOLIC PANEL Lab Routine Essential hypertension, benign Bilateral leg edema Hyperlipidemia, mixed Expected: 08/19/2023 (Approximate), Expires: 10/19/2023 [facility] Work Phone: Comment on above: Expected: 08/19/2023 (Approximate), Expires: 10/19/2023 Start: 08-19-2023 End: 10-19-2023 Lipid 1996 panel - Serum or Plasma LIPID PANEL BASIC Lab Routine Essential hypertension, benign Hyperlipidemia, mixed Expected: 08/19/2023 (Approximate), Expires: 10/19/2023 [facility] Work Phone: Comment on above: Expected: 08/19/2023 (Approximate), Expires: 10/19/2023 Start: 08-19-2023 End: 10-19-2023 Thyrotropin [Units/volume] in Serum or Plasma TSH BLD Lab Routine Hypothyroidism, unspecified type Expected: 08/19/2023 (Approximate), Expires: 10/19/2023 [facility] Work Phone: Comment on above: Expected: 08/19/2023 (Approximate), Expires: 10/19/2023 Start: 08-13-2023 ANNUAL PCP TEAM J2EE ENGINEER FLOR DISEASE VISIT ANNUAL PCP TEAM CHRONIC DISEASE VISIT [facility] Start: 08-13-2023 BP CONTROLLED (<130/80) BP CONTROLLE D (<130/80) [facility] Start: 07-27-2023 ANNUAL PCP TEAM J2EE ENGINEER FLOR DISEASE VISIT ANNUAL PCP TEAM CHRONIC DISEASE VISIT [facility] Start: 06-21-2023 Behavioral Health Screening Behavioral Health Screening [facility] Start: 02-19-2023 Covid-19 Vaccine ( season) Covid-19 Vaccine () [facility] Start: 02-19-2023 Influenza vaccination C [facility] Start: 02-09-2023 Adult depression scr eening assessment DEPRESSION SCREENING [facility] Start: 02-09-2023 ANNUAL PCP TEAM J2EE ENGINEER FLOR DISEASE VISIT ANNUAL PCP TEAM CHRONIC DISEASE VISIT [facility] Start: 02-09-2023 BP CONTROLLED (<130/80) BP CONTROLLE D (<130/80) [facility] Start: 11-10-2022 ANNUAL PCP TEAM J2EE ENGINEER FLOR DISEASE VISIT ANNUAL PCP TEAM CHRONIC DISEASE VISIT [facility] Start: 11-10-2022 BP CONTROLLED (<130/80) BP CONTROLLE D (<130/80) [facility] Start: 09-05-2022 Patient discharge [facility] Start: 09-01-2022 Continuous positive airway pressure ventilation treatment [facility] Start: 09-01-2022 Inhalation therapy procedure [facility] Start: 08-31-2022 End: 08-31-2022 Blood culture [facility] Start: 08-31-2022 Continuous positive airway pressure ventilation treatment [facility] Start: 08-31-2022 Thyroid stimulating hormone measurement [facility] Start: 08-31-2022 End: 08-31-2022 [facility] Start: 08-30-2022 Following clinical p athway protocol [facility] Start: 08-30-2022 Continuous positive airway pressure ventilation treatment [facility] Start: 08-30-2022 Referral to gastroenterology service [facility] Start: 08-30-2022 Referral to general surgeon [facility] Start: 08-30-2022 Assessment of risk o f venous thromboembolism [facility] Start: 08-30-2022 Incentive spirometry [facility] Start: 08-30-2022 Insertion of cathete r into peripheral vein [facility] Start: 08-30-2022 Providing care accor ding to standard [facility] Start: 08-30-2022 Provision of activit y privileges [facility] Start: 08-30-2022 Referral to service [facility] Start: 08-30-2022 [facility] Start: 08-30-2022 Verification routine [facility] Start: 08-30-2022 Admission procedure [facility] Start: 08-12-2022 End: 10-12-2022 CBC W Auto Differential panel - Blood CBC + DIFF Lab Routine Bilateral leg edema Expected: 08/12/2022 (Approximate), Expires: 10/12/2022 [facility] Work Phone: Comment on above: Expected: 08/12/2022 (Approximate), Expires: 10/12/2022 Start: 08-12-2022 End: 10-12-2022 Comprehensive metabolic 2000 panel - Serum or Plasma COMP METABOLIC PANEL Lab Routine Hyperlipidemia, mixed Expected: 08/12/2022 (Approximate), Expires: 10/12/2022 [facility] Work Phone: Comment on above: Expected: 08/12/2022 (Approximate), Expires: 10/12/2022 Start: 08-12-2022 End: 10-12-2022 Lipid 1996 panel - Serum or Plasma LIPID PANEL BASIC Lab Routine Hyperlipidemia, mixed Expected: 08/12/2022 (Approximate), Expires: 10/12/2022 [facility] Work Phone: Comment on above: Expected: 08/12/2022 (Approximate), Expires: 10/12/2022 Start: 08-12-2022 End: 10-12-2022 Thyrotropin [Units/volume] in Serum or Plasma TSH BLD Lab Routine Hypothyroidism, unspecified type Expected: 08/12/2022 (Approximate), Expires: 10/12/2022 [facility] Work Phone: Comment on above: Expected: 08/12/2022 (Approximate), Expires: 10/12/2022 Start: 07-05-2022 COVID-19 VACCINE (6 - Pfizer series) COVID-19 VACCINE (6 - Pfizer series) [facility] Start: 06-21-2022 ADVANCE DIRECTIVE DISCUSSION ADVANCE DIRECTIVE DISCUSSION [facility] Start: 06-21-2022 DEPRESSION ASSESSMENT DEPRESSION ASS ESSMENT [facility] Start: 02-19-2022 Influenza vaccination INFLUENZA (#1) [facility] Start: 02-09-2022 End: 04-11-2022 CBC panel - Blood by Automated count CBC Lab Routine Essential hypertension, benign Expected: 02/09/2022 (Approximate), Expires: 04/11/2022 [facility] Work Phone: Comment on above: Expected: 02/09/2022 (Approximate), Expires: 04/11/2022 Start: 02-09-2022 End: 04-11-2022 Comprehensive metabolic 2000 panel - Serum or Plasma COMP METABOLIC PANEL Lab Routine Essential hypertension, benign Expected: 02/09/2022 (Approximate), Expires: 04/11/2022 [facility] Work Phone: Comment on above: Expected: 02/09/2022 (Approximate), Expires: 04/11/2022 Start: 02-09-2022 End: 04-11-2022 Thyrotropin [Units/volume] in Serum or Plasma TSH BLD Lab Routine Hypothyroidism, unspecified type Expected: 02/09/2022 (Approximate), Expires: 04/11/2022 [facility] Work Phone: Comment on above: Expected: 02/09/2022 (Approximate), Expires: 04/11/2022 Start: 11-10-2021 SHINGRIX VACCINE (3 of 3) HENDRIX GRIX VACCINE (3 of 3) [facility] Start: 10-16-2021 Adult depression scr eening assessment DEPRESSION SCREENING [facility] Start: 06-21-2021 ADVANCE DIRECTIVE DISCUSSION ADVANCE DIRECTIVE DISCUSSION [facility] Start: 06-21-2021 DEPRESSION ASSESSMENT DEPRESSION ASS ESSMENT [facility] Start: 10-09-2017 Urine microalbumin profile [facility] Start: 2005 RSV Vaccine (1 - 1-d ose 60+ series) RSV Vaccine (1 - 1-dose 60+ series) [facility] Start: 1963 BP CONTROLLED (<130/80) BP CONTROLLE D (<130/80) [facility] Alanine aminotransfe rase [Enzymatic activity/volume] in Serum or Plasma [facility] Albumin [Mass/volume ] in Serum or Plasma [facility] Alkaline phosphatase [Enzymatic activity/volume] in Serum or Plasma [facility] Anion gap measurement [facility] Aspartate aminotrans ferase [Enzymatic activity/volume] in Serum or Plasma [facility] Bacteria identified in Blood by Culture Blood Culture [facility] Basic metabolic 2008 panel with ionized calcium - Serum or Plasma [facility] Bilirubin, total measurement [facility] BUN/Creatinine ratio [facility] Calcium [Mass/volume ] in Serum or Plasma [facility] Carbon dioxide, tota l [Moles/volume] in Serum or Plasma [facility] Catheterization of l eft heart [facility] CBC W Auto Different ial panel - Blood [facility] Chloride [Moles/volu me] in Serum or Plasma [facility] Creatinine [Moles/vo lume] in Serum or Plasma [facility] ECG COMPLETE [facility] Work Phone: Comment on above: Ordered: 08/10/2024 Glucose [Mass/volume ] in Serum or Plasma [facility] Hematocrit [Volume Fraction] of Blood [facility] Hemoglobin [Mass/vol ume] in Blood [facility] Leukocytes [#/volume ] in Blood [facility] Mean corpuscular hemoglobin concentration determination [facility] Mean corpuscular hemoglobin determination [facility] Measurement of renal function [facility] End: 10-12-2025 MR Brain WO and W contrast IV MRI BRAIN WO/W IVCON Radiology Routine Trigeminal neuralgia Dizziness History of resection of meningioma 1 Occurrences starting 09/12/2024 until 10/12/2025 [facility] Comment on above: 1 Occurrences starti ng 09/12/2024 until 10/12/2025 Neutrophil count [facility] Neutrophil percent differential count [facility] Partial thromboplast in time, activated [facility] Patient referral [facility] Work Phone: Platelets [#/volume] in Blood [facility] Potassium [Moles/vol ume] in Serum or Plasma [facility] Prothrombin time [facility] Radionuclide imaging of perfusion of myocardium under exercise stress [facility] Red blood cell count [facility] Red cell distributio n width determination [facility] Sodium [Moles/volume ] in Serum or Plasma [facility] Total protein measurement [facility] Urea nitrogen [Mass/volume] in Serum or Plasma [facility] End: 10-01-2025 XR Lumbar spine 3 Views XR LUMBAR GENERAL 3V AP/LAT/L5-S1 Radiology Routine Left sided sciatica 1 Occurrences starting 09/01/2024 until 10/01/2025 [facility] Work Phone: Comment on above: 1 Occurrences starti ng 09/01/2024 until 10/01/2025 XR Lumbar spine 3 Views XR LUMBA R GENERAL 3V AP/LAT/L5-S1 Radiology Routine Left sided sciatica 09/01/2024 10:39 AM [facility]T [facility] Immunizations Immunization Date Immunization Notes Care Provider Fa cility 04-27-2024 influenza, high dose seasonal, preservative-free Kenn Beauchamp MD Work Phone: [facility] 03-16-2024 COVID-19 vaccine, ag e 12+ yr (PFIZER-BIONTECH COMIRNAT) Kenn Beauchamp MD Work Phone: [facility] 04-29-2023 COVID-19 vaccine, ag e 12+ yr, season (PFIZER-BIONTECH) Kenn Beauchamp MD Work Phone: [facility] 04-29-2023 influenza (HD-IIV4) vaccine, age 65+ yr, high dose, quadrivalent, PF (FLUZONE HIGH-DOSE) Kenn Beauchamp MD Work Phone: [facility] 04-29-2023 respiratory syncytia l virus (RSV) vaccine, bivalent (ABRYSVO) Kenn Beauchamp MD Work Phone: [facility] 04-29-2023 influenza virus vaccine, unspecified formulation Kenn Beauchamp MD Work Phone: [facility] 03-05-2022 COVID-19 booster vaccine, age 12+ yr, bivalent (PFIZER-BIONTECH) Kenn Beauchamp MD Work Phone: [facility] 03-05-2022 Influenza, high dose seasonal Dr. Kenn Beauchamp MD Work Phone: [facility] 03-05-2022 influenza, high dose seasonal, preservative-free Kenn Beauchamp MD Work Phone: [facility] 03-05-2022 influenza virus vaccine, unspecified formulation Kenn Beauchamp MD Work Phone: [facility] 11-27-2021 zoster vaccine recombinant Knen Beauchamp MD Work Phone: [facility] 10-10-2021 Covkelsea (Pfizer) MD Kenn MONTERROSO [facility] 09-15-2021 zoster vaccine recombinant Kenn Beauchamp MD Work Phone: [facility] 03-15-2021 Joshua (Pfizer) MD Kenn MONTERROSO [facility] 03-15-2021 influenza, high-dose , quadrivalent vaccine (FLUZONE HIGH DOSE QUADRIVALENT) Kenn Beauchamp MD Work Phone: [facility] 09-09-2020 COVID-19 vaccine, ag e 12+ yr (PFIZER-BIONTECH - PURPLE TOP) Kenn Beauchamp MD Work Phone: [facility] 08-15-2020 COVID-19 vaccine, ag e 12+ yr (PFIZER-BIONTECH - PURPLE TOP) Kenn Beauchamp MD Work Phone: [facility] 03-18-2020 influenza, high dose seasonal, preservative-free Kenn Beauchamp MD Work Phone: [facility] 03-18-2020 influenza, high-dose , quadrivalent vaccine (FLUZONE HIGH DOSE QUADRIVALENT) Kenn Beauchamp MD Work Phone: [facility] 03-23-2019 influenza, high dose seasonal, preservative-free Kenn Beauchamp MD Work Phone: [facility] 05-19-2018 influenza, high dose seasonal, preservative-free Kenn Beauchamp MD Work Phone: [facility] 03-14-2017 influenza, high dose seasonal, preservative-free Kenn Beauchamp MD Work Phone: [facility] 07-20-2016 pneumococcal conjuga te vaccine, 13 valent Kenn Beauchamp MD Work Phone: [facility] 06-02-2015 influenza, seasonal, injectable, preservative free Kenn Beauchamp MD Work Phone: [facility] 06-02-2015 pneumococcal conjuga te vaccine, 13 valent Kenn Beauchamp MD Work Phone: [facility] 04-06-2011 zoster vaccine, live Kenn pritchett MD Work Phone: [facility] 04-01-2010 influenza virus vaccine, whole virus Kenn Beauchamp MD Work Phone: [facility] 03-17-2010 pneumococcal polysaccharide vaccine, 23 valent Kenn Beauchamp MD Work Phone: [facility] Work Phone: 03-18-2009 influenza virus vaccine, unspecified formulation Kenn Beauchamp MD Work Phone: [facility] Work Phone: 05-15-2008 influenza virus vaccine, whole virus Kenn Beauchamp MD Work Phone: [facility] 10-10-2007 tetanus toxoid, redu lesly diphtheria toxoid, and acellular pertussis vaccine, adsorbed Kenn Beauchamp MD Work Phone: [facility] Work Phone: 05-03-2007 influenza virus vaccine, whole virus Kenn Beauchamp MD Work Phone: [facility] 04-26-2006 influenza virus vaccine, unspecified formulation Kenn Beauchamp MD Work Phone: [facility] 05-18-2005 influenza virus vaccine, whole virus Kenn Beauchamp MD Work Phone: [facility] Work Phone: NEGATED: Highlighted row has not occurred!05-13-2019 pneumococcal polysaccharide vaccine, 23 valent Kenn Beauchamp MD Work Phone: [facility] Payers Date Payer Category Payer Self-pay [id number] 2022 Medicare [employer] [place] [place] [id number] 2022-Present [phone] [address] [place] [address] O [id number] 2022 [place] [id number] 2022 Medicare [id number] 2018 Unknown ANTHEM BLUE CROS S AND BLUE SHIELD ANTHEM MEDIBLUE O [id number] 2018-Present [id number] [place] [address] [id number] 2018 Unknown ANTHEM BLUE CROS S AND BLUE SHIELD ANTHEM MEDIBLUE O [id number] 2018-Present [id number] [place], [place] [id number] [facility] [id number] 1945 Unknown [id number] .2.651 Medicare [id number] Medicare ANTHEM MEDICARE SENIOR ADV[place]A [id number] Private Health Insurance [facility] *DO NOT USE* [id number] Unknown [id number] Unknown [id number] .2.462 Unknown [id number] .2.462 Unknown [id number] .2.462 Unknown [id number] .2.462 Unknown [id number] .2.462 Unknown [id number] .2.462 Unknown [id number] .2.462 Unknown [id number] 2.16.840.1.932177.3.579 .2.462 Unknown [id number] .2.462 Unknown [id number] .2.462 Unknown [id number] .2.462 Social History Date Type Detail Facility Start: 08-13-2022 End: 12-10-2022 Tobacco smoking status SDIS Never smoked tobacco [facility] Start: 11-10-2021 End: 09-12-2024 Alcohol intake Current non-drinker of alcohol (finding) [facility] Start: 10-17-2020 End: 07-27-2022 History SDOH Alcohol Frequency 1 [facility] Start: 10-17-2020 End: 07-27-2022 History SDOH Alcohol Std Drinks 98 [facility] Start: 10-17-2020 End: 07-27-2022 History SDOH Social Connections Phone 5 [facility] Start: 10-17-2020 End: 07-27-2022 History SDOH Social Connections Living 4 [facility] Start: 10-17-2020 End: 07-27-2022 History SDOH Physical Activity DPW 2 [facility] Start: 10-16-2020 Education 12 [facility] Start: 1945 Sex Assigned At Female C [facility] Start: 10-31-2021 End: 02-09-2022 Exposure to SARS-CoV-2 (event) Not sure [facility] Start: 05-21-2022 End: 08-30-2022 Tobacco smoking status NHIS Unknown if ever smoked [facility] Start: 07-27-2022 History SDOH Alcohol Std Drinks 0 [facility] Start: 07-27-2022 History SDOH Physica l Activity DPW 6 [facility] Start: 08-13-2022 Tobacco use and exposure Smoke less tobacco non-user [facility] Start: 07-27-2022 End: 02-16-2023 History of Social function [facility] Start: 07-27-2022 End: 02-16-2023 Social connection and isolation panel [facility] How often do you get together with friends or relatives? Patient refused [facility] Are you now , , , , never or living with a partner? [facility] How often do you hav e 6 or more drinks on 1 occasion? Never [facility] How hard is it for y ou to pay for the very basics like food, housing, medical care, and heating Not very hard [facility] Do you feel stress - tense, restless, nervous, or anxious, or unable to sleep at night because your mind is troubled all the time - these days [OSQ] Not at all [facility] (I/We) worried wheth er (my/our) food would run out before (I/we) got money to buy more. DK or Refused [facility] The food that (I/we) bought just didn't last, and (I/we) didn't have money to get more. Never true [facility] In the past 12 month s, was there a time when you were not able to pay the mortgage or rent on time? No [facility] Start: 04-24-2021 Gender identity Identifies as female gender (finding) [facility] Do you feel stress - tense, restless, nervous, or anxious, or unable to sleep at night because your mind is troubled all the time - these days [OSQ] Only a little [facility] Start: 09-11-2024 End: 09-19-2024 Sex Female (finding) [facility] Medical Equipment Procedure Code Equipment Code Equipment Original Text Equipment Identifier Dates Total cholecystectomy with exploration of common bile duct Open-surgery ligation clip ceo & founder [id number] Start: 09-01-2022 [place] Thk1.65mm R ectangle Ptfe 4.5x6mm Cardiovascular [place] - [id number] Start: 05-12-[address] us Bovine Collagen Matrix 2x2in Soft Tissue Patch - [id number] Start: 05-12-[address] us Bovine Collagen Matrix 2x2in Soft Tissue Patch - [id number] Start: 08-03-2019 [place] Cover 24mm - [id number] Start: 05-06-2011 Plate Sm Translabyrinthine [id number] Start: 08-03-2019 Mesh Standard Go ld Titanium 90x90x.6mm Dynamic Craniomaxillofacial - [id number] Start: 05-12-2019 Comment on above: Description: CATALOG NUMBER CHANGED TO [id number] Cover [place] Hole 20mm [id number] - [id number] Start: 09-03-2010 Screw Cranial 1. 9bwp6eb - [id number] Start: 09-03-2010 Screw Selftap 1. 5x4mm - [id number] Start: 05-06-2011 Screw Bone Unive rsal Neuro 3 4mm 1.5mm Self Drill Axial Stability Latex - [id number] Start: 05-12-2019 Screw Bone Unive rsal Neuro 3 4mm 1.5mm Self Drill Axial Stability Latex - [id number] Start: 08-03-2019 Goals Date Patient Goal Desired Activity /State Functional Status Date Assessment Result Facility 09-05-2022 Functional status [facility] Work Phone: 08-08-2019 Are you deaf, or do you have serious difficulty hearing No 08/08/2019 3:27 PM Carey Tipton RN No [facility] 08-08-2019 Are you blind, or do you have serious difficulty seeing, even when wearing glasses No 08/08/2019 3:27 PM Carey Tipton RN No [facility] 08-08-2019 Do you have serious difficulty walking or climbing stairs No 08/08/2019 3:27 PM Carey Tipton RN No [facility] 08-08-2019 Do you have difficul ty dressing or bathing No 08/08/2019 3:27 PM Carey Tipton RN No [facility] 08-08-2019 Because of a physica l, mental, or emotional condition, do you have difficulty doing errands alone such as visiting a physician's office or shopping No 08/08/2019 3:27 PM Carey Tipton RN No [facility] Mental Status Date Assessment Result Facility 09-04-2022 Cognitive function Voice/Name [facility] Work Phone: 08-08-2019 Because of a physica l, mental, or emotional condition, do you have serious difficulty concentrating, remembering, or making decisions No 08/08/2019 3:27 PM Carey Tipton RN No [facility] Clinical Notes 11-10-2021 to 11-16-2024 Note Date & Type Note Facility 11-16-2024 Progress note [facility] 11-16-2024 Progress note Note Date/Time November 16, 2024 8:44am [facility] [address] [place] [address]. [address] [place], [place] [address] OFFICE VISIT Date of Service: 11/16/24 MR#: [id number] Acct: [id number] Name: KATE OREILLY Rep #: [id number] : 1945 Provider: LORA Swan Age/Sex: 79/F Location: [facility] Status: Signed HPI HPI History of Present Illness Details: Kate Oreilly is a 79-year-old lady who presents today for an urgent visit forincrease [place] [facility] [place] . She was last in the office in 2022. She has no previouscardiac history who we have seen for dyspnea. Echocardiogram in 2020 demonstrated an ejection fraction of 65%, mild mitral valve insufficiency, RVSP 40 mmHg. Stress test in 2020 was negative for ischemia. She did undergo a diagnostic heart catheterization in 2021, this demonstrated normal coronary arteries with mild pulmonary hypertension. Echocardiogram in 2024 demonstrated a preserved ejection fraction of 65% with mildly dilated RV, RVSP was 55 mmHg. Stress test in 08/2024 was negative for ischemia at a low workload. She continues to have chest tightness. This is with any type of exertion. She does have SOB with any type of activity. She does have lightheadedness/dizziness. She has not had any syncopal events. She has not rode her bike since her last OV. Intake Vital Signs 08/18/24 07:13 11/16/24 07:50 Height 5 ft 7 in 5 ft 7 in Weight: 196 lb 204 lb BMI 30.7 31.9 BP 129/82 H 136/72 H Blood Pressure Location Lt brachial Lt brachial Position Sitting Sitting Respiration 18 16 Pulse 85 72 Pulse Source Monitor Intake Visit Reasons: 3 M FU Rn Ccu Required: No Accompanied by: Self Is patient in pain?: No Allergies amoxicillin Allergy (Verified 11/16/24 07:54) rash carbamazepine Allergy (Verified 11/16/24 07:54) rash rofecoxib (From Vioxx) Allergy (Verified 11/16/24 07:54) rash codeine Adverse Reaction (Verified 11/16/24 07:54) vomiting fentanyl Adverse Reaction (Verified 11/16/24 07:54) Vomiting gabapentin (From Neurontin) Adverse Reaction (Verified 11/16/24 07:54) intolerance hydrocodone (From Vicodin) Adverse Reaction (Verified 11/16/24 07:54) Vomiting meperidine (From Demerol) Adverse Reaction (Verified 11/16/24 07:54) Vomiting oxycodone (From Percocet) Adverse Reaction (Verified 11/16/24 07:54) Vomiting topiramate (From Topamax) Adverse Reaction (Verified 11/16/24 07:54) intolerance tramadol Adverse Reaction (Verified 11/16/24 07:54) Vomiting Medications ?Medication ?Instructions ?Recorded ?Confirmed ?Type montelukast 10 mg tablet 10 mg PO QHS 08/13/21 History (Singulair) levothyroxine 100 mcg tablet 100 mcg PO DAILY 11/11/21 11/16/24 History losartan 100 mg tablet 100 mg PO DAILY #90 tabs 04/1111/16/24 Rx albuterol sulfate 90 mcg/actuation 2 puff inhalation Q 6H PRN 08/18/24 11/16/24 History aerosol inhaler furosemide 40 mg tablet (Lasix) 40 mg PO QAM 11/16/24 11/16/24 History isosorbide mononitrate 30 mg 30 mg PO QAM #30 tabs 11/16/24 Rx tablet,extended release 24 hr pregabalin 200 mg capsule 200 mg PO QDAY 11/16/2410/20 History Have you fallen in the past year?: No PFSH Medical History Diverticulosis Essential hypertension Hyperlipidemia Hypothyroidism Meningioma, cerebral Obesity Obstructive sleep apnea Secondary pulmonary arterial hypertension Trigeminal neuralgia Surgical History History of cataract surgery History of colonoscopy History of craniotomy (2010) History of right and left heart catheterization (09/01/21) Status post cholecystectomy [place] (trigeminal neuralgia) (2019) Family History Mother CVA (cerebral vascular accident) Heart disease PPM Father Heart disease valve replacement, PPM Brother Heart disease Brother Heart disease Sister Heart disease Sister Colon cancer Sister Breast cancer Daughter Breast cancer Social History Smoking Status: Never smoker alcohol intake: never substance use type: does not use caffeine: Yes Type: coffee Number of servings: 4 ROS Const Const: Positive for fatigue; Negative for weakness, headache(s), daytime sleepiness or difficulty sleeping ENT ENT: Positive for dizziness; Negative for headache(s) or Nosebleed/epistaxis Cardio Chest Pain: Yes Frequency: daily Character: tightness Onset: exercise Location: left chest Duration: hours Exacerbation: activity Relieving: rest Recurrence: activity Palpitations: No Edema: Bilateral (BLE trace at times ) Resp Respiratory: Positive for SOB with activity (with minimum exertion/climbing stairs); Negative for SOB at rest, SOB orthopneaundefinedSOB lying down or Cough GI GI: Negative nausea, vomiting or heartburn Neuro Neuro: Positive for dizziness; Negative for lightheadedness, near syncope, headache(s) or weakness Endo Endo: Positive for fatigue Cardiology Exam Const Appearance: cooperative and no acute distress Nutritional Appearance: overweight Orientation: alert and oriented x3 Head Head: normal to inspection Ears: hearing grossly normal bilaterally Nose: external nose normal Face and Sinus: face symmetric Eyes General: appearance normal, both eyes and all related structures Eyelids: eyelids normal Conjunctivae: conjunctivae normal EOM: EOM intact bilaterally Neck Neck: normal visual inspection Carotids: Negative bruit Chest Chest inspection: normal inspection of the chest and normal respiratory effort Auscultation: Bilateral: Clear to Auscultation Cardio Palpation: normal PMI Rate: regular rate Rhythm: regular rhythm Heart sounds: S1 normal and S2 normal; Negative rub, gallop or murmur GI GI: normal to inspection and soft; Negative no hepatosplenomegaly Neuro General: patient alert, patient oriented x3 and CN's II-XI intact bilaterally Skin Skin: no rashes or lesions noted Extremities Pulses: Normal: Right Posterior Tibial Pulse, Left Posterior Tibial Pulse, RightRadial Pulse and Left Radial Pulse Lower Extremity Edema: Trace: Bilateral Psych Psychological: normal affect Supplemental Info Supplemental Information Exercise myocardial perfusion stress test 08/2024 79-year-old lady with a history of chest pain Stress protocol: Resting EKG demonstrates normal sinus rhythm with a rate of 67 bpm resting bloodpressure is 112/60 mmHg. The patient exercised according to the regular Ilan protocol for a total duration of 1 minute and 49 seconds attaining a maximum heart rate of 144 bpm which was 102% of maximum predicted heart rate; the maximum workload was 4.6 metabolic equivalents. At rest there were no ST or T wave changes noted to suggest ischemia and at peak exercise upsloping ST changesonly were noted which did not meet the criteria for ischemia. No clinical angina was noted the test was terminated due to the target heart rate being achieved/fatigue. The peak blood pressure was 188/90 mmHg. Rate-pressure product was 15,700. Myocardial perfusion protocol. 11.7 mCi of technetium 99m sestamibi was injected at rest. The patient exercised according to regular Ilan protocol for total duration of 1 minute and49 seconds and at peak exercise 34.6 mCi of technetium 99m sestamibi was injected stress images were obtained stress and rest images were reconstructed in comparing the short axis vertical long and horizontal long axis. Gated images were also obtained. Perfusion SPECT analysis: Review of the stress images demonstrate normal uptake of tracer noted in all areas of the myocardium. The resting images similarly demonstrate normal uptakeof tracer noted in all areas of the myocardium. No areas of reversibility are noted to suggest ischemia no previous infarct was noted. Gated SPECT analysis: The gated ejection fraction is 80% plus. Conclusion: Normal exercise myocardial perfusion stress test at a low workload Preserved ejection fraction. Stress 04/14/2021: Conclusion: Normal pharmacologic myocardial perfusion stress test. Preserved ejection fraction. Echo Complete 07/2024 Interpretation Summary The estimated ejection fraction is 65 %. Mildly dilated right ventricle. Echocardiogram 12/31/2020: Interpretation Summary The study was technically difficult. Contrast injection was performed. Left ventricular systolic function is normal. The estimated ejection fraction is 65 %. The left atrium is mildly enlarged. Mild (1+) mitral valve insufficiency. Mild tricuspid valve insufficiency. Right ventricular systolic pressure estimated to be 40 mmHg. Transmitral diastolic flow velocities suggest diastolic dysfunction (pseudonormal pattern). Cardiac Catheterization 08/2021: CONCLUSIONS Normal coronary arteries Normal LV size, wall motion,and systolic function Right heart pressures - mildly elevated RECOMMENDATIONS Medical therapy CORONARY ANGIOGRAPHY DOMINANCE: Right Dominant LEFT HEART ASSESSMENT Left Ventricular Ejection Fraction: by LV Gram 65 % Normal LV wall motion Normal Left Ventricular systolic function Normal Left Ventricular systolic function RIGHT HEART ASSESSMENT Thermal CO: 6.63 Thermal CI: 3.08 Fanny CO: 7.05 Fanny CI: 3.28 PW: / 23 PA: 41/20 29 RV: 43/7 17 RA: 16/15 13 PVR: 72 SVR: 905 Right Heart pressures - elevated LEFT MAIN: Angiographically normal LEFT ANTERIOR DESCENDING ARTERY: Angiographically normal CIRCUMFLEX ARTERY: Angiographically normal RIGHT CORONARY ARTERY: Angiographically normal COMPLICATIONS No Complications Labs: No Data to Display Diagnostics: Electrocardiogram Echocardiogram Stress Test Stress Test Nuclear Medicine Pulmonary: No Data to Display Past Visits: Cardiology Visit 11/16/24 Assessment and Plan Assessment and Plan (1) Chest pain: Status: Acute Plan: Pt still continues to have Chest pain and SOB, stress test was normal but it wasat a low workload. Would like to pursue a diagnostic heart cath. (2) Essential hypertension: Status: Acute Plan: She does have a history of hypertension. She was asked to monitor this. If it is elevated will adjust. (3) Secondary pulmonary arterial hypertension: Status: Acute Plan: He had a right heart catheterization in July 2021 demonstrating pulmonary artery systolic pressure estimated to be 40 mmHg and a wedge Pressure of 23 mmHg. She is doing well and asymptomatic in this regard my recommendation is tofollow her as needed. Orders: Orders Basic Metabolic Profile (BMP) Today I10 - Essential (primary) hypertension, I27.21 - Secondary pulmonary arterial hypertension, R07.9 - Chest pain, unspecified CBC W/Diff, Automated Today I10 - Essential (primary) hypertension, I27.21 - Secondary pulmonary arterial hypertension, R07.9 - Chest pain, unspecified Prothrombin Time w/INR Today I10 - Essential (primary) hypertension, I27.21 - Secondary pulmonary arterial hypertension, R07.9 - Chest pain, unspecified Partial Thromboplast Time Today I10 - Essential (primary) hypertension, I27.21 - Secondary pulmonary arterial hypertension, R07.9 - Chest pain, unspecified 12 Lead EKG performed by BMS Today I10 - Essential (primary) hypertension, I27.21 - Secondary pulmonary arterial hypertension, R07.9 - Chest pain, unspecified Left Heart Cath/COR/LV Percut Today I10 - Essential (primary) hypertension, I27.21 - Secondary pulmonary arterial hypertension, R07.9 - Chest pain, unspecified Medications: New isosorbide mononitrate ER 30 mg PO QAM 30 tabs 1RF Patient Instructions: Your procedure is schedule for November at 0900 you will arrive at 0730 Nothing to eat or drink after midnight With a small sip of water take your morning medications. Levothyroxine, losartan. Do not take your isosorbide or lasix. You will need a log truck driver. If you need a stent you will spend the night. Get your labs done today Coding Level of Care Code Off vis,est,level 4 Diagnoses Chest pain R07.9 Essential hypertension I10 Secondary pulmonary arterial hypertension I27.21 Coding Level of Care Code Off vis,est,level 4 Diagnoses Chest pain R07.9 Essential hypertension I10 Secondary pulmonary arterial hypertension I27.21 Clinical Quality Measures Falls Risk Screening/Assistive Devices Have you fallen in the past year?: No 11/16/24 0844 <Electronically signed by Natali Orr> Date _ Natali Morales Signature: Date (if applicable) CC: Dr. Kenn Beauchamp MD ~ [facility] [employer] Work Phone: [phone]) 421-789105-28-2025 Telephone encounter Note* Telephone Encounter - Gary Odell APRN.CNP - 11/15/2024 8:44 PM EDT The following approved medication requests have been transmitted electronically. Requested Prescriptions Pending Prescriptions Disp Refills montelukast (SINGULAIR) 10 mg tablet 90 tablet 3 Sig: Take 1 tablet by mouth daily at bedtime. Gary Odell APRN.CNP [facility]05-28-2025 Miscellaneous Notes* Telephone Encounter - Gary Odell APRN.CNP - 11/15/2024 8:44 PM EDT The following approved medication requests have been transmitted electronically. Requested Prescriptions Pending Prescriptions Disp Refills montelukast (SINGULAIR) 10 mg tablet 90 tablet 3 Sig: Take 1 tablet by mouth daily at bedtime. Gary Odell APRN.CNP * Telephone Encounter - Mary Urias MA - 11/15/2024 12:26 PM EDT Prescription Refill Information The patient has been identified by name and date of : Yes Caregiver verified no other encounters exist for this prescription request: Yes Caregiver confirmed with patient/requestor that no other refills are due, in the near future, with this provider at this time: Yes The last office visit in the department: 09/12/2024 Does the patient have a future office visit with this provider/department: Yes Requested Prescriptions Pending Prescriptions Disp Refills montelukast (SINGULAIR) 10 mg tablet 90 tablet 3 Sig: Take 1 tablet by mouth daily at bedtime. Mary Urias MA November 15, 2024 12:26 PM documented in [facility] Telephone encounter Note * Telephone Encounter - Mary Urias MA - 11/15/2024 12:26 PM EDT Prescription Refill Information The patient has been identified by name and date of : Yes Caregiver verified no other encounters exist for this prescription request: Yes Caregiver confirmed with patient/requestor that no other refills are due, in the near future, with this provider at this time: Yes The last office visit in the department: 09/12/2024 Does the patient have a future office visit with this provider/department: Yes Requested Prescriptions Pending Prescriptions Disp Refills montelukast (SINGULAIR) 10 mg tablet 90 tablet 3 Sig: Take 1 tablet by mouth daily at bedtime. Mary Urias MA November 15, 2024 12:26 PM [facility]04-04-2025 History of Present illness Narrative* Saeid Saba, RT(R) - 09/22/2024 9:00 AM EDT Radiology Service Progress Note DATE OF SERVICE: September 22, 2024 TIME: 9:44 AM PATIENT IDENTITY VERIFICATION COMPLETED USING TWO (2) STANDARD IDENTIFIERS: Name and Date of confirmed by patient verbally. FALL SCREENING: Has the patient had 2 falls in the last year or 1 fall with injury or currently using an Ambulatory Assistive Device (Walker, Cane, Wheelchair, Crutches, etc.)? No PATIENT GENDER DATA: Assigned female at . status: : No status:NO. PATIENT RELEVANT IMPLANT DATA REVIEWED: Yes PATIENT PRESENTS WITH AN IMPLANTABLE OR ATTACHED CARDIAC REHABILITATION PROGRAM DIRECTOR: No ALLERGIES: Reviewed and unchanged CONTRAST ALLERGY: NO. EXAM: MRI - CONTRAST TYPE: GROUP II PERIPHERAL IV DATA: Ambulatory: A peripheral IV was started in the Left hand with a Angio cath: 24 gauge. RADIOLOGY DEPARTMENT: MR; Exam(s) Completed: Head: SKULL BASE SIGNATURE: RT Laisha(R) PATIENT NAME: Kate Oreilly DATE: September 22, 2024 TIME: 9:44 AM documented in [facility] encounter[facility] NoteHNO ID: [id number] Author: SAEID SABA RT(Geremias) Service: ? Author Type: Technologist Type: Progress Notes Filed: 09/22/2024 09:45 Note Text: Radiology Service Progress Note DATE OF SERVICE: September 22, 2024 TIME: 9:44 AM PATIENT IDENTITY VERIFICATION COMPLETED USING TWO (2) STANDARD IDENTIFIERS: Name and Date of confirmed by patient verbally. FALL SCREENING: Has the patient had 2 falls in the last year or 1 fall with injury or currently using an Ambulatory Assistive Device (Walker, Cane, Wheelchair, Crutches, etc.)? No PATIENT GENDER DATA: Assigned female at . status: : No status: NO. PATIENT RELEVANT IMPLANT DATA REVIEWED: Yes PATIENT PRESENTS WITH AN IMPLANTABLE OR ATTACHED CARDIAC REHABILITATION PROGRAM DIRECTOR: No ALLERGIES: Reviewed and unchanged CONTRAST ALLERGY: NO. EXAM: MRI - CONTRAST TYPE: GROUP II PERIPHERAL IV DATA: Ambulatory: A peripheral IV was started in the Left hand with a Angio cath: 24 gauge. RADIOLOGY DEPARTMENT: MR; Exam(s) Completed: Head: SKULL BASE SIGNATURE: Saeid Galloway RT Jayant(R) PATIENT NAME: Kate Oreilly DATE: September 22, 2024 TIME: 9:44 [facility]03-25-2025 History of Present illness Narrative* Kenn Beauchamp MD - 09/12/2024 8:40 AM EDT Chief Complaint Patient presents with: F/U 6 Month HPI Kate Oreilly is a 79 year old female who presents here today for a 6 mo f/u. Pt here today for her routine visit. Recently seen by Bessy on 09/01/24 for an acute visit due to left sided sciatica. Also seen on 08/10/24 for chest tightness. GI/Uro - Denies any stomach, bowel, or urinary issues. Uses Senna prn (rare) for constipation but bowels stable with eating salads. Thyroid - On current regimen of Synthroid 100 mcg daily. Denies any missed dosages. Had had concernabout Michoacano's due to FHx and weight gain in the past. Had meningioma brain tumor removed in 2008. She states she hasn't had anyone following that since. She is limited on how far she can drive. Unsure where a local neurosurgeon is. Reports she's not hadany imaging done to monitor this since her last surgery for trigeminal neuralgia, wondering if thisneeds completed to see if this causing dizziness. She has dizziness and balance problems. Reports she's been having increased dizziness, unable to pin point the cause. Occurs later in the am. Edema - B/L leg edema, stable with use of Lasix 40 mg 1 pill once daily, supposed to use bid. Uses Compression stockings some, not much in the summer. Elevation when feet/legs burn. Pain - Chronic pain due to trigeminal neuralgia and chronic back pain. Taking Lyrica 200 mg 1 cap daily; recently cut down from twice a day. PCP agreed to start prescribing her Lyrica at last OV. Wasfollowing with Pain Management Dr. Yadav but declined any further follow ups as she was not getting any relief with all alternatives tried. Injections made her feel worse. Lipid/Glucose - Currently on no medications. Tries to watch diet. Reports exercise has been iffy.Reports she had an asthma flare when she did too much. HTN - Following with [facility], has upcoming stress test scheduled for this . Checking BP at home occasionally, reports readings aren't doing too bad. Currently taking Losartan 100 mg daily. Denies any chest pains, but gets tightness due to her asthma issues. Has chronic SOB and issues with dizziness and balance. Feels the SOB would improve if she could lose some weight. Asthma - Had flare up recently due to doing too much activity. Is on Singulair 10 mg once daily andRescue Inhaler prn. SREEKANTH - Currently taking Singulair 10 mg daily. Follows with Freedom Osman at [facility] for SOB/SREEKANTH. Wears CPAP nightly, sleeps well on average gets 8 hours of good sleep. Feels her SOB would improve if she could lose some weight. Had recent PFT testing done through his office, has not heard about results yet. Treated with Tizanidine for left sided sciatica. Reports she took it at bedtime and did okay with medication. Took dosage during the day and was doing light stretching and sat up and had vision changes and went black. Has not taken since. Wants to know if okay to continue or should be added to allergies. HM - Has Adv Dir/Living Will scanned into chart. Past medical history, appointments, medications, allergies reviewed. Previous Medical History PAST MEDICAL HISTORY Diagnosis Date Diverticulosis of colon (without mention of hemorrhage) Family history of malignant neoplasm of gastrointestinal tract Head injury 09/30 trip fall HTN (hypertension) Hypothyroidism Internal hemorrhoids without mention of complication SREEKANTH (obstructive sleep apnea) Other and unspecified hyperlipidemia Pneumonia 07/2011 Snoring Trigeminal neuralgia Previous Surgical History PAST SURGICAL HISTORY Procedure Laterality Date BIOPSY BREAST OPEN INCISIONAL Left LATE Bx of breast, incisional COLONOSCOPY FLX DX W/COLLJ SPEC WHEN PFRMD 03/12/2008 COLONOSCOPY FLX DX W/COLLJ SPEC WHEN PFRMD 02/05/2014 Colonoscopy COLONOSCOPY FLX DX W/COLLJ SPEC WHEN PFRMD 05/20/2015 Colonoscopy COLONOSCOPY FLX DX W/COLLJ SPEC WHEN PFRMD 01/23/2019 Colonoscopy PAST SURGICAL HISTORY OF 09/03/2010 CRANIECTOMY EXCISON TUMOR, INFRATENTORIAL OR POST FOSSA, MENIGIOMA PAST SURGICAL HISTORY OF 05/06/2011 right [place]VD fro [place] PAST SURGICAL HISTORY OF 04/2019 Trigeminal neuralgia surgery. Brain leak in August 2019 REMOVAL GALLBLADDER N/A 08/30/2022 TONSILLECTOMY PRIMARY/SECONDARY <AGE 12 A CHILD Tonsillectomy XCAPSL CTRC RMVL INSJ IO LENS PROSTH W/O ECP 2012 Cataract Extraction with PC IOL XCAPSL CTRC RMVL INSJ IO LENS PROSTH W/O ECP 2012 Cataract Extraction with PC IOL Family History FAMILY HISTORY Problem Relation Age of Onset Alzheimer's Disease Mother Heart Mother pacemaker Stroke Mother Heart Father VALVE REPLACEMENT,PACE MAKER Heart Sister Heart Brother Heart Brother Colon Cancer Sister Breast Cancer Sister Breast Cancer Daughter Patient Allergies ALLERGIES Allergen Reactions Amoxicillin Rash Carbamazepine Rash Codeine Vomiting Percocet [Oxycodone* Vomiting Tegretol [Carbamaze* Vomiting Dizziness, couldn't see straight Skin reaction when went in sun Tramadol Vomiting Vicodin [Hydrocodon* Vomiting Vioxx [Rofecoxib] Rash Demerol [Meperidine* Intolerance Neurontin [Gabapent* Intolerance Dizziness, feeling like I couldn't work Topamax [Topiramate] Intolerance Flushed, red skin Fentanyl GI Upset Current Medications Current Outpatient Medications on File Prior to Visit Medication Sig predniSONE (DELTASONE) 10 mg tablet Take 4 tabs daily for 3 days, then 2 tabs daily for 3 days, then 1 tab daily for 3 days with food. tiZANidine (ZANAFLEX) 4 mg tablet Take 1 tablet by mouth three times a day as needed (Muscle tension/pain) for up to 10 days. albuterol HFA (PROVENTIL HFA, VENTOLIN HFA) 90 mcg/actuation inhaler Inhale 1 Puff as instructed every 6 hours as needed for wheezing/shortness of breath. SPACE CHAMBER 1 Device one time only. Pregabalin (LYRICA) 200 mg capsule Take 1 capsule by mouth once daily for 180 days. losartan (COZAAR) 100 mg tablet Take 1 tablet by mouth once daily. levothyroxine (SYNTHROID) 100 mcg tablet take 1 tablet by mouth once daily on an empty stomach furosemide (LASIX) 40 mg tablet Take 1 tablet by mouth once daily. montelukast (SINGULAIR) 10 mg tablet Take 1 tablet by mouth daily at bedtime. Sennosides 25 mg tab Take 1 tablet by mouth daily at bedtime. No current facility-administered medications on file prior to visit. Social History Social History Tobacco Use Smoking status: Never Smokeless tobacco: Never Vaping Use Vaping status: Never Used Substance Use Topics Alcohol use: No Drug use: No EXAM: BP 128/72 (BP Site: Right Arm, BP Position: Sitting, BP Cuff Size: Regular Adult) Pulse 68 Resp18 Wt 90.7 kg (199 lb 15.3 oz) LMP (LMP Unknown) BMI 31.32 kg/m General Appearance: Well appearing, alert, in no acute distress, well-hydrated, well nourished.. Lungs: Lungs clear to auscultation. No wheezing, rhonchi, rales.. Heart: RRR without murmur, gallop, or rubs. No ectopy. Health Maintenance List DTaP,Tdap,Td Vaccine(2 - Td or Tdap) due on 10/09/2017 Advance Directive Discussion due on 06/21/2024 Covid-19 Vaccine( season) due on 09/13/2024 Depression Screening due on 03/16/2025 Anxiety Screening due on 03/16/2025 Annual PCP Team Chronic Disease Visit due on 09/01/2025 BP Controlled (<130/80) due on 09/01/2025 Diabetes Screening due on 09/05/2027 Bone Density Screening Completed Influenza Vaccine Completed RSV Vaccine Completed Shingrix Vaccine Completed Pneumococcal Vaccine: 50+ Completed Mammogram Screening Discontinued Colorectal Cancer Screening Discontinued Data reviewed Appointment on 09/04/2024 Component Date Value Hemoglobin A1C 09/04/2024 5.7 (H) Estimated Average Glucose 09/04/2024 117 Cholesterol, Total 09/04/2024 201 (H) Triglyceride 09/04/2024 72 HDL Cholesterol 09/04/2024 70 Non HDL Cholesterol 09/04/2024 131 (H) Fasting Time 09/04/2024 11 VLDL Cholesterol 09/04/2024 14 TC:HDL Ratio 09/04/2024 2.87 LDL Cholesterol 09/04/2024 117 (H) LDL:HDL Ratio 09/04/2024 1.67 Protein, Total 09/04/2024 6.4 Albumin 09/04/2024 4.1 Calcium, Total 09/04/2024 9.0 Bilirubin, Total 09/04/2024 0.3 Alkaline Phosphatase 09/04/2024 65 AST 09/04/2024 16 ALT 09/04/2024 15 Glucose 09/04/2024 82 BUN 09/04/2024 27 (H) Creatinine 09/04/2024 1.08 (H) Sodium 09/04/2024 145 (H) Potassium 09/04/2024 3.7 Chloride 09/04/2024 108 (H) CO2 09/04/2024 22 Anion Gap 09/04/2024 15 Estimated Glomerular Duran* 09/04/2024 52 (L) TSH 09/04/2024 1.990 Office Visit on 08/10/2024 Component Date Value Ventricular Rate 08/10/2024 82 Atrial Rate 08/10/2024 82 P-R Interval 08/10/2024 178 QRS Duration 08/10/2024 82 QT Interval 08/10/2024 366 QTC Calculation (Bazett) 08/10/2024 427 Calculated P Spring 08/10/2024 70 Calculated R Spring 08/10/2024 -39 Calculated T Spring 08/10/2024 34 ASSESSMENT/PLAN: 1. Essential hypertension, benign - ICD9: 401.1, ICD10: I10 (primary diagnosis) - Controlled - Continue current medications - Recommend home blood pressure monitoring, to bring results to next visit - Encouraged sodium restriction, DASH or Mediterranean diet - Recommend regular aerobic exercise 2. Hyperlipidemia, mixed - ICD9: 272.2, ICD10: E78.2 - Controlled - Counseled on healthy diet and regular exercise 3. Elevated glucose - ICD9: 790.29, ICD10: R73.09 Stable Monitor - COMPREHENSIVE METABOLIC PANEL - HEMOGLOBIN A1C 4. Hypothyroidism, unspecified type - ICD9: 244.9, ICD10: E03.9 - Instructed patient on importance of taking on an empty stomach either first thing in the morning or at bedtime. - continue current dose of Synthroid 0.100 mg - THYROID STIMULATING HORMONE 5. Bilateral leg edema - ICD9: 782.3, ICD10: R60.0 Continue current medications. 6. Trigeminal neuralgia - ICD9: 350.1, ICD10: G50.0 - MRI BRAIN WO/W IVCON 7. Dizziness - ICD9: 780.4, ICD10: R42 - MRI BRAIN WO/W IVCON 8. Spinal stenosis of lumbar region, unspecified whether neurogenic claudication present - ICD9: 724.02, ICD10: M48.061 9. Unspecified sleep apnea - ICD9: 780.57, ICD10: G47.30 10. History of meningioma of the brain - ICD9: V12.41, ICD10: Z86.011 11. History of resection of meningioma - ICD9: V45.89, ICD10: Z98.890, Z86.03 Check MRI - MRI BRAIN WO/W IVCON Follow up in 6 months Notify of MRI results Medical Decision Making: Problems: Moderate: 2+ stable chronic illnesses Data: Unique test result(s) reviewed: 3+ Unique test(s) ordered: 3+ Risk: Moderate: Drug management Medical Decision Making Level: 4 - Moderate Kenn Beauchamp MD [facility] NoteHNO ID: [id number] Author: KENN BEAUCHAMP MD Service: ? Author Type: Physician Type: Progress Notes Filed: 09/12/2024 11:51 Note Text: Chief Complaint Patient presents with: F/U 6 Month HPI Kate Oreilly is a 79 year old female who presents here today for a 6 mo f/u. Pt here today for her routine visit. Recently seen by Bessy on 09/01/24 for an acute visit due to left sided sciatica. Also seen on 08/10/24 for chest tightness. GI/Uro - Denies any stomach, bowel, or urinary issues. Uses Senna prn (rare) for constipation but bowels stable with eating salads. Thyroid - On current regimen of Synthroid 100 mcg daily. Denies any missed dosages. Had had concern about [place]'s due to FHx and weight gain in the past. Had meningioma brain tumor removed in 2008. She states she hasn't had anyone following that since. She is limited on how far she can drive. Unsure where a local neurosurgeon is. Reports she's not had any imaging done to monitor this since her last surgery for trigeminal neuralgia, wondering if this needs completed to see if this causing dizziness. She has dizziness and balance problems. Reports she's been having increased dizziness, unable to pin point the cause. Occurs later in the am. Edema - B/L leg edema, stable with use of Lasix 40 mg 1 pill once daily, supposed to use bid. Uses Compression stockings some, not much in the summer. Elevation when feet/legs burn. Pain - Chronic pain due to trigeminal neuralgia and chronic back pain. Taking Lyrica 200 mg 1 cap daily; recently cut down from twice a day. PCP agreed to start prescribing her Lyrica at last OV. Was following with Pain Management Dr. Yadav but declined any further follow ups as she was not getting any relief with all alternatives tried. Injections made her feel worse. Lipid/Glucose - Currently on no medications. Tries to watch diet. Reports exercise has been iffy. Reports she had an asthma flare when she did too much. HTN - Following with [facility], has upcoming stress test scheduled for this . Checking BP at home occasionally, reports readings aren't doing too bad. Currently taking Losartan 100 mg daily. Denies any chest pains, but gets tightness due to her asthma issues. Has chronic SOB and issues with dizziness and balance. Feels the SOB would improve if she could lose some weight. Asthma - Had flare up recently due to doing too much activity. Is on Singulair 10 mg once daily and Rescue Inhaler prn. SREEKANTH - Currently taking Singulair 10 mg daily. Follows with Freedom Osman at [facility] for SOB/SREEKANTH. Wears CPAP nightly, sleeps well on average gets 8 hours of good sleep. Feels her SOB would improve if she could lose some weight. Had recent PFT testing done through his office, has not heard about results yet. Treated with Tizanidine for left sided sciatica. Reports she took it at bedtime and did okay with medication. Took dosage during the day and was doing light stretching and sat up and had vision changes and went black. Has not taken since. Wants to know if okay to continue or should be added to allergies. HM - Has Adv Dir/Living Will scanned into chart. Past medical history, appointments, medications, allergies reviewed. Previous Medical History PAST MEDICAL HISTORY Diagnosis Date Diverticulosis of colon (without mention of hemorrhage) Family history of malignant neoplasm of gastrointestinal tract Head injury 09/30 trip fall HTN (hypertension) Hypothyroidism Internal hemorrhoids without mention of complication SREEKANTH (obstructive sleep apnea) Other and unspecified hyperlipidemia Pneumonia 07/2011 Snoring Trigeminal neuralgia Previous Surgical History PAST SURGICAL HISTORY Procedure Laterality Date BIOPSY BREAST OPEN INCISIONAL Left LATE Bx of breast, incisional COLONOSCOPY FLX DX W/COLLJ SPEC WHEN PFRMD 03/12/2008 COLONOSCOPY FLX DX W/COLLJ SPEC WHEN PFRMD 02/05/2014 Colonoscopy COLONOSCOPY FLX DX W/COLLJ SPEC WHEN PFRMD 05/20/2015 Colonoscopy COLONOSCOPY FLX DX W/COLLJ SPEC WHEN PFRMD 01/23/2019 Colonoscopy PAST SURGICAL HISTORY OF 09/03/2010 CRANIECTOMY EXCISON TUMOR, INFRATENTORIAL OR POST FOSSA, MENIGIOMA PAST SURGICAL HISTORY OF 05/06/2011 [place] fro [place] PAST SURGICAL HISTORY OF 04/2019 Trigeminal neuralgia surgery. Brain leak in August 2019 REMOVAL GALLBLADDER N/A 08/30/2022 TONSILLECTOMY PRIMARY/SECONDARY Tonsillectomy XCAPSL CTRC RMVL INSJ IO LENS PROSTH W/O ECP 2012 Cataract Extraction with PC IOL XCAPSL CTRC RMVL INSJ IO LENS PROSTH W/O ECP 2012 Cataract Extraction with PC IOL Family History FAMILY HISTORY Problem Relation Age of Onset Alzheimer's Disease Mother Heart Mother pacemaker Stroke Mother Heart Father VALVE REPLACEMENT,PACE MAKER Heart Sister Heart Brother Heart Brother Colon Cancer Sister Breast Cancer Sister Breast Cancer Daughter Patient Allergofelia (more content not included)...[facility] 09-06-2024 Telephone encounter Note* Telephone Encounter - Caty Banda LPN - 09/06/2024 4:19 PM EDT Patient notified of results, verbalizes understanding of instructions. Pt had her recliner repositioned and she is sitting up more. Back has improved. Caty Banda LPN [facility]03-19-2025 Miscellaneous Notes* Telephone Encounter - Caty Banda LPN - 09/06/2024 4:19 PM EDT Patient notified of results, verbalizes understanding of instructions. Pt had her recliner repositioned and she is sitting up more. Back has improved. Caty Banda LPN * Telephone Encounter - Bessy Yates APRN.CNP - 09/06/2024 2:18 PM EDT Can you please call the patient and let her know that I reviewed her lumbar x- ray results. 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 I would recommend that she continue supportive care at home. If symptoms do not improve I would recommend completing physical therapy. Please let me know if she has any questions. Bessy Yates APRN.[place] documented in this encounterMem[facility]03-[facility] Telephone encounter Note * Telephone Encounter - Bessy Yates APRN.CNP - 09/06/2024 2:18 PM EDT Can you please call the patient and let her know that I reviewed her lumbar x- ray results. 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 I would recommend that she continue supportive care at home. If symptoms do not improve I would recommend completing physical therapy. Please let me know if she has any questions. Bessy Yates APRN.CNP [facility]03-14-2025 History of Present illness Narrative* Ese Rueda RT(R) - 09/01/2024 10:20 AM EDT Radiology Service Progress Note PATIENT NAME: Kate Oreilly DATE OF SERVICE: September 01, 2024 TIME: 10:30 AM PATIENT IDENTITY VERIFICATION COMPLETED USING TWO (2) IDENTIFIERS: Name and Date of confirmedby patient verbally. FALL SCREENING: Has the patient had 2 falls in the last year or 1 fall with injury or currently using an Ambulatory Assistive Device (Walker, Cane, Wheelchair, Crutches, etc.)? No PATIENT GENDER DATA: Assigned female at . status: : No status:NO. PATIENT RELEVANT IMPLANT DATA REVIEWED: Yes PATIENT PRESENTS WITH AN IMPLANTABLE OR ATTACHED CARDIAC REHABILITATION PROGRAM DIRECTOR: No RADIOLOGY DEPARTMENT: General X-ray: Exam(s) Completed: Spine X-Ray(s): Lumbar AP / LAT / L5-S1 PERIPHERAL IV DATA: Not applicable SIGNED BY: RT Damián(Geremias) September 01, 2024 10:30 AM documented in this encounterMem[facility]03-14-2025 NoteHNO ID: [id number] Author: ESE RUEDA RT(Geremias) Service: ? Author Type: Wheel Aligner Type: Progress Notes Filed: 09/01/2024 10:38 Note Text: Radiology Service Progress Note PATIENT NAME: Kate Oreilly DATE OF SERVICE: September 01, 2024 TIME: 10:30 AM PATIENT IDENTITY VERIFICATION COMPLETED USING TWO (2) IDENTIFIERS: Name and Date of confirmed by patient verbally. FALL SCREENING: Has the patient had 2 falls in the last year or 1 fall with injury or currently using an Ambulatory Assistive Device (Walker, Cane, Wheelchair, Crutches, etc.)? No PATIENT GENDER DATA: Assigned female at . status: : No status: NO. PATIENT RELEVANT IMPLANT DATA REVIEWED: Yes PATIENT PRESENTS WITH AN IMPLANTABLE OR ATTACHED CARDIAC REHABILITATION PROGRAM DIRECTOR: No RADIOLOGY DEPARTMENT: General X-ray: Exam(s) Completed: Spine X-Ray(s): Lumbar AP / LAT / L5-S1 PERIPHERAL IV DATA: Not applicable SIGNED BY: RT Damián(R) September 01, 2024 10:30 [facility]03-14-2025 Instructions* Patient Instructions* Bessy Yates APRN.CNP - 09/01/2024 10:05 AM EDT Get xray completed Start prednisone taper May use Zanaflex as needed 3 times daily, may make you drowsy May use Tylenol every as needed for pain Massage therapy may be helpful Can do gentle stretching Follow up if symptoms do not improve or pending test results documented in this encounterMem[facility]03-[facility] History of Present illness Narrative* Bessy Yates APRN.CNP - 09/01/2024 10:00 AM EDT This is a 79 year old female who presents today with: Patient presents with: Acute Visit: Left leg sciatica HISTORY OF PRESENT ILLNESS: Kate Oreilly is a 79 year old female. Patient presents with: Acute Visit: Left leg sciatica Sciatica back pain. Started Wednesday night and has been waxing and waning since. Radiating down the left leg. She reports that she was having pain before getting out of bed this morning. Has taken ibuprofen. Pain is rated 5/10 in her glutes, 3/10 in her leg. Has had shooting pain from her hip to her ankle. No difficulty sleeping. Denies loss of bowel or bladder/saddle anesthesia PAST MEDICAL HISTORY: PAST MEDICAL HISTORY Diagnosis Date Diverticulosis of colon (without mention of hemorrhage) Family history of malignant neoplasm of gastrointestinal tract Head injury 09/30 trip fall HTN (hypertension) Hypothyroidism Internal hemorrhoids without mention of complication SREEKANTH (obstructive sleep apnea) Other and unspecified hyperlipidemia Pneumonia 07/2011 Snoring Trigeminal neuralgia PAST SURGICAL HISTORY Procedure Laterality Date BIOPSY BREAST OPEN INCISIONAL Left LATE Bx of breast, incisional COLONOSCOPY FLX DX W/COLLJ SPEC WHEN PFRMD 03/12/2008 COLONOSCOPY FLX DX W/COLLJ SPEC WHEN PFRMD 02/05/2014 Colonoscopy COLONOSCOPY FLX DX W/COLLJ SPEC WHEN PFRMD 05/20/2015 Colonoscopy COLONOSCOPY FLX DX W/COLLJ SPEC WHEN PFRMD 01/23/2019 Colonoscopy PAST SURGICAL HISTORY OF 09/03/2010 CRANIECTOMY EXCISON TUMOR, INFRATENTORIAL OR POST FOSSA, MENIGIOMA PAST SURGICAL HISTORY OF 05/06/2011 [place]VD fro [place] PAST SURGICAL HISTORY OF 04/2019 Trigeminal neuralgia surgery. Brain leak in August 2019 REMOVAL GALLBLADDER N/A 08/30/2022 TONSILLECTOMY PRIMARY/SECONDARY <AGE 12 A CHILD Tonsillectomy XCAPSL CTRC RMVL INSJ IO LENS PROSTH W/O ECP 2012 Cataract Extraction with PC IOL XCAPSL CTRC RMVL INSJ IO LENS PROSTH W/O ECP 2012 Cataract Extraction with PC IOL ALLERGIES Amoxicillin, Carbamazepine, Codeine, Percocet [Oxycodone- Acetaminophen], Tegretol [Carbamazepine Analogues], Tramadol, Vicodin [Hydrocodone-Acetaminophen], Vioxx [Rofecoxib], Demerol [Meperidine Hcl], Neurontin [Gabapentin], Topamax [Topiramate], and Fentanyl MEDICATIONS Current Outpatient Medications Medication Sig albuterol HFA (PROVENTIL HFA, VENTOLIN HFA) 90 mcg/actuation inhaler Inhale 1 Puff as instructed every 6 hours as needed for wheezing/shortness of breath. SPACE CHAMBER 1 Device one time only. Pregabalin (LYRICA) 200 mg capsule Take 1 capsule by mouth once daily for 180 days. losartan (COZAAR) 100 mg tablet Take 1 tablet by mouth once daily. levothyroxine (SYNTHROID) 100 mcg tablet take 1 tablet by mouth once daily on an empty stomach furosemide (LASIX) 40 mg tablet Take 1 tablet by mouth once daily. montelukast (SINGULAIR) 10 mg tablet Take 1 tablet by mouth daily at bedtime. Sennosides 25 mg tab Take 1 tablet by mouth daily at bedtime. No current facility-administered medications for this visit. FAMILY HISTORY Problem Relation Age of Onset Alzheimer's Disease Mother Heart Mother pacemaker Stroke Mother Heart Father VALVE REPLACEMENT,PACE MAKER Heart Sister Heart Brother Heart Brother Colon Cancer Sister Breast Cancer Sister Breast Cancer Daughter Social History Tobacco Use Smoking status: Never Smokeless tobacco: Never Vaping Use Vaping status: Never Used Substance Use Topics Alcohol use: No Drug use: No REVIEW OF SYSTEMS GENERAL: No weight loss, malaise or fevers/chills HEENT: Negative for frequent or significant headaches, No changes in hearing or vision. NECK: Negative for lumps, goiter, pain and significant neck swelling RESPIRATORY: Negative for cough, hemoptysis, wheezing, dyspnea or shortness of breath CARDIOVASCULAR: Negative for chest pain, leg swelling, orthopnea, or palpitations GI: No nausea, vomiting, or diarrhea/constipation. No hematochezia/melena. No heartburn or reflux symptoms. : No history of dysuria, frequency or incontinence MUSCULOSKELETAL: + Back pain SKIN: Negative for lesions, rash, and itching ENDOCRINE: Negative for cold or heat intolerance, polyuria, polydipsia and goiter NEURO: + numbness/tingling into the left leg MOOD: Negative for depression, anxiety, or suicidal ideation. EXAM: BP 112/68 Pulse 71 Resp 16 Wt 90.1 kg (198 lb 10.2 oz) LMP (LMP Unknown) SpO2 98% BMI 31.11 kg/m PHYSICAL EXAM: General Appearance: Well appearing, alert, in no acute distress, well-hydrated, well nourished.. Skin: Skin color, texture, turgor normal, no suspicious rashes or lesions. Head: Normocephalic, no masses, lesions, tenderness or abnormalities. Lungs: Lungs clear to auscultation. No wheezing, rhonchi, rales. Heart: RRR without murmur, gallop, or rubs. No ectopy. Extremities: No deformities, edema, skin discoloration, clubbing or cyanosis. Good capillary refill. . Musculoskeletal: Spine nontender with palpation. Moderate muscle tension noted in the left glutes and hamstring. Reduced ROM. Peripheral Pulses: Normal, Capillary refill <2secs, strong peripheral pulses, Pulses palpable. Neurologic: Gait normal. Reflexes normal and symmetric. Sensation grossly intact. ASSESSMENT/PLAN: 1. Left sided sciatica - ICD9: 724.3, ICD10: M54.32 Sciatica - Bedrest for 2-3 days - Ice for localized tenderness - Warm moist heat for 20 min three times a day - Get xray completed - Start prednisone taper, may use Tylenol as needed. - May use Zanaflex as needed for muscle tension. - Continue supportive care at home, gentle stretching and massage therapy may be helpful. - PREDNISONE 10 MG TABLET - XR LUMBAR GENERAL 3V AP/LAT/L5-S1 - TIZANIDINE 4 MG TABLET Follow-up pending test results or sooner as needed Discussed treatment plan and patient voices understanding. Patient's questions answered appropriately. Medications and potential side effects were discussed and patient voices understanding. Bessy Yates APRN.DENVER This note was partially generated using [employer] voice recognition system. Note was reviewed for accuracy. There may be minor misspellings or grammar miscues with [employer] voice recognition. documented in this encounterMem[facility] NoteHNO ID: [id number] Author: BESSY YATES APRN.CNP Service: ? Author Type: Nurse Practitioner Type: Progress Notes Filed: 09/01/2024 10:37 Note Text: This is a 79 year old female who presents today with: Patient presents with: Acute Visit: Left leg sciatica HISTORY OF PRESENT ILLNESS: Kate Oreilly is a 79 year old female. Patient presents with: Acute Visit: Left leg sciatica Sciatica back pain. Started Wednesday night and has been waxing and waning since. Radiating down the left leg. She reports that she was having pain before getting out of bed this morning. Has taken ibuprofen. Pain is rated 5/10 in her glutes, 3/10 in her leg. Has had shooting pain from her hip to her ankle. No difficulty sleeping. Denies loss of bowel or bladder/saddle anesthesia PAST MEDICAL HISTORY: PAST MEDICAL HISTORY Diagnosis Date Diverticulosis of colon (without mention of hemorrhage) Family history of malignant neoplasm of gastrointestinal tract Head injury 09/30 trip fall HTN (hypertension) Hypothyroidism Internal hemorrhoids without mention of complication SREEKANTH (obstructive sleep apnea) Other and unspecified hyperlipidemia Pneumonia 07/2011 Snoring Trigeminal neuralgia PAST SURGICAL HISTORY Procedure Laterality Date BIOPSY BREAST OPEN INCISIONAL Left LATE Bx of breast, incisional COLONOSCOPY FLX DX W/COLLJ SPEC WHEN PFRMD 03/12/2008 COLONOSCOPY FLX DX W/COLLJ SPEC WHEN PFRMD 02/05/2014 Colonoscopy COLONOSCOPY FLX DX W/COLLJ SPEC WHEN PFRMD 05/20/2015 Colonoscopy COLONOSCOPY FLX DX W/COLLJ SPEC WHEN PFRMD 01/23/2019 Colonoscopy PAST SURGICAL HISTORY OF 09/03/2010 CRANIECTOMY EXCISON TUMOR, INFRATENTORIAL OR POST FOSSA, MENIGIOMA PAST SURGICAL HISTORY OF 05/06/2011 right MVD fro [place] PAST SURGICAL HISTORY OF 04/2019 Trigeminal neuralgia surgery. Brain leak in August 2019 REMOVAL GALLBLADDER N/A 08/30/2022 TONSILLECTOMY PRIMARY/SECONDARY Tonsillectomy XCAPSL CTRC RMVL INSJ IO LENS PROSTH W/O ECP 2012 Cataract Extraction with PC IOL XCAPSL CTRC RMVL INSJ IO LENS PROSTH W/O ECP 2012 Cataract Extraction with PC IOL ALLERGIES Amoxicillin, Carbamazepine, Codeine, Percocet [Oxycodone-Acetaminophen], Tegretol [Carbamazepine Analogues], Tramadol, Vicodin [Hydrocodone-Acetaminophen], Vioxx [Rofecoxib], Demerol [Meperidine Hcl], Neurontin [Gabapentin], Topamax [Topiramate], and Fentanyl MEDICATIONS Current Outpatient Medications Medication Sig albuterol HFA (PROVENTIL HFA, VENTOLIN HFA) 90 mcg/actuation inhaler Inhale 1 Puff as instructed every 6 hours as needed for wheezing/shortness of breath. SPACE CHAMBER 1 Device one time only. Pregabalin (LYRICA) 200 mg capsule Take 1 capsule by mouth once daily for 180 days. losartan (COZAAR) 100 mg tablet Take 1 tablet by mouth once daily. levothyroxine (SYNTHROID) 100 mcg tablet take 1 tablet by mouth once daily on an empty stomach furosemide (LASIX) 40 mg tablet Take 1 tablet by mouth once daily. montelukast (SINGULAIR) 10 mg tablet Take 1 tablet by mouth daily at bedtime. Sennosides 25 mg tab Take 1 tablet by mouth daily at bedtime. No current facility-administered medications for this visit. FAMILY HISTORY Problem Relation Age of Onset Alzheimer's Disease Mother Heart Mother pacemaker Stroke Mother Heart Father VALVE REPLACEMENT,PACE MAKER Heart Sister Heart Brother Heart Brother Colon Cancer Sister Breast Cancer Sister Breast Cancer Daughter Social History Tobacco Use Smoking status: Never Smokeless tobacco: Never Vaping Use Vaping status: Never Used Substance Use Topics Alcohol use: No Drug use: No REVIEW OF SYSTEMS GENERAL: No weight loss, malaise or fevers/chills HEENT: Negative for frequent or significant headaches, No changes in hearing or vision. NECK: Negative for lumps, goiter, pain and significant neck swelling RESPIRATORY: Negative for cough, hemoptysis, wheezing, dyspnea or shortness of breath CARDIOVASCULAR: Negative for chest pain, leg swelling, orthopnea, or palpitations GI: No nausea, vomiting, or diarrhea/constipation. No hematochezia/melena. No heartburn or reflux symptoms. : No history of dysuria, frequency or incontinence MUSCULOSKELETAL: + Back pain SKIN: Negative for lesions, rash, and itching ENDOCRINE: Negative for cold or heat intolerance, polyuria, polydipsia and goiter NEURO: + numbness/tingling into the left leg MOOD: Negative for depression, anxiety, or suicidal ideation. EXAM: BP 112/68 Pulse 71 Resp 16 Wt 90.1 kg (198 lb 10.2 oz) LMP (LMP Unknown) SpO2 98% BMI 31.11 kg/m? PHYSICAL EXAM: General Appearance: Well appearing, alert, in no acute distress, well-hydrated, well nourished.. Skin: Skin color, texture, turgor normal, no suspicious rashes or lesions. Head: Normocephalic, no masses, lesions, tenderness or abnormalities. Lungs: Lungs clear to auscultation. No wheezing, rho (more content not included)...[facility]03-14-2025 Radiology Diagnostic study note [facility] Imaging Services [address] [place] [address] Chest without Contrast MR#: [id number] Acct: [id number] Name: KATE OREILLY Rep #: [id number] : 1945 F 79 From: Collin Barnes MD PCP: Dr. Kenn Beauchamp MD Status: RE G CLI Study:Chest without Contrast Date of Exam: 08/31/24 Exam# [id number] Ordering Dr: Tyler Singh MD PROCEDURE: CHEST WITHOUT CONTRAST REASON FOR EXAM: HYPOXEMIA TECHNIQUE: Chest CT without contrast. COMPARISON: 11/2020 FINDINGS: 1.1 cm right lower lobe calcification. This is unchanged. 6 mm right lower lobe calcification detected. Calcified hilar and mediastinal lymph nodes compatible with old healed granulomas disease Bronchial thickening. No new or growing nodules. No localizing infiltrate. Patchy bibasilar atelectasis Heart size is enlarged. No evidence of ascending aortic aneurysm No pneumothorax or pleural effusions Stable thyroid gland. Tortuous vascularity suggests systemic hypertension. Demineralized bones CT/Chest without Contrast IMPRESSION: Stable examination. Findings of old healed granulomatous disease. Bronchial thickening. Heart size is enlarged. No localizing infiltrate One or more dose reduction techniques were used (e.g., Automated exposure control, adjustment of the mA and/or kV according to patient size, use of iterative reconstruction technique). Reading Location: [facility] CC: Dr. Kenn Beauchamp MD; Dr. Tyler Singh MD ~ Curing Machine Operator: Signed [facility]03-10-2025 Telephone encounter Note* Telephone Encounter - Gary Odell APRN.CNP - 08/28/2024 12:49 PM EDT Noted. Gary Odell APRN.CNP [facility]03-10-2025 Miscellaneous Notes* Telephone Encounter - Gary Odell APRN.CNP - 08/28/2024 12:49 PM EDT Noted. Gary Lion, APPLE CHECKER.VALUE STREAM MANAGER * Telephone Encounter - Samantha Chaidez RN - 08/28/2024 11:26 AM EDT Pt reports sciatica pain from left hip to foot that started last night. Was able to sleep and did not bother her when sleeping. Sciatica pain started again this morning. Took ibuprofen and shower, and the sciatica has calmed down quite a bit. Movement triggers it. Protocol recommends see provider in 3 days. Pt declined appt on , Wed, and , as she is busy on those day but agreeable to schedule appt for Wednesday. Pt agreeable to call back if wants sooner appt. Pt will follow protocol recommendations. Pt agreeable to call back with any questions or concerns. Pt agreeable to ER if symptoms become severe or worsen. Reason for Disposition [1] Pain radiates into the thigh or further down the leg AND [2] one leg Answer Assessment - Initial Assessment Questions 1. ONSET: Last night at midnight, pt got up from reclining chair, and felt a sharp pain going down her leg. Didn't notice it while sleeping. Pain started this morning as soon as she got out of bed. Before she got into the shower, took 4 ibuprofen and took a shower. The pain is better now, not as sharp now. Can feel it a little bit now in left hip. Leg is still sore in back / side of leg. When puts weight on left foot it triggers the pain in her hip. Right now she is moving pretty. 2. LOCATION: Left hip, radiates down back / side of leg to foot. 3. SEVERITY: Moderate with every movement. When not moving it's mild. Right now can walk without holding onto something. 4. PATTERN: Comes and goes 5. RADIATION: Radiates with movement. 6. CAUSE: Sciatica 7. BACK OVERUSE: No overuse that she knows of. 8. MEDICINES: 4 ibuprofen. 9. NEUROLOGIC SYMPTOMS: No lower back pain. No weakness, numbness, or problems with bowel or bladder. Sometimes her hands go sleep when sleeping, feet get numb sometimes at night. Hands and feet havenot gone numb this time. 10. OTHER SYMPTOMS: No other symptoms, except hands and feet go to sleep- but this has been going on before sciatica. 11. : N/A Protocols used: Back Apwl-HAKKE-CP documented in this encounterMem[facility]03-10-2025 Telephone encounter Note * Telephone Encounter - Samantha Chaidez RN - 08/28/2024 11:26 AM EDT Pt reports sciatica pain from left hip to foot that started last night. Was able to sleep and did not bother her when sleeping. Sciatica pain started again this morning. Took ibuprofen and shower, and the sciatica has calmed down quite a bit. Movement triggers it. Protocol recommends see provider in 3 days. Pt declined appt on , Wed, and , as she is busy on those day but agreeable to schedule appt for Wednesday. Pt agreeable to call back if wants sooner appt. Pt will follow protocol recommendations. Pt agreeable to call back with any questions or concerns. Pt agreeable to ER if symptoms become severe or worsen. Reason for Disposition [1] Pain radiates into the thigh or further down the leg AND [2] one leg Answer Assessment - Initial Assessment Questions 1. ONSET: Last night at midnight, pt got up from reclining chair, and felt a sharp pain going down her leg. Didn't notice it while sleeping. Pain started this morning as soon as she got out of bed. Before she got into the shower, took 4 ibuprofen and took a shower. The pain is better now, not as sharp now. Can feel it a little bit now in left hip. Leg is still sore in back / side of leg. When puts weight on left foot it triggers the pain in her hip. Right now she is moving pretty. 2. LOCATION: Left hip, radiates down back / side of leg to foot. 3. SEVERITY: Moderate with every movement. When not moving it's mild. Right now can walk without holding onto something. 4. PATTERN: Comes and goes 5. RADIATION: Radiates with movement. 6. CAUSE: Sciatica 7. BACK OVERUSE: No overuse that she knows of. 8. MEDICINES: 4 ibuprofen. 9. NEUROLOGIC SYMPTOMS: No lower back pain. No weakness, numbness, or problems with bowel or bladder. Sometimes her hands go sleep when sleeping, feet get numb sometimes at night. Hands and feet havenot gone numb this time. 10. OTHER SYMPTOMS: No other symptoms, except hands and feet go to sleep- but this has been going on before sciatica. 11. : N/A Protocols used: Back Zvff-DYROC-ED [facility]02-28-2025 Evaluation note* Diagnosis Onset Date Resolution Status Admit Date Chest pain acute August 18, 2024 7:51am Essential hypertension acute 2024 7:51am Secondary pulmonary arterial hypertension acute August 18, 025 7:51am [facility] Work Phone: [phone]) 518-417102-28-2025 Evaluation note* Diagnosis Onset Date Resolution Status Admit Date Chest pain acute August 18, 2024 7:51am Essential hypertension acute 2024 7:51am Secondary pulmonary arterial hypertension acute August 18, 025 7:51am Chest pain acute November 16, 2024 7:47am Essential hypertension acute 2024 7:47am Secondary pulmonary arterial hypertension acute November 16, 2024 7 :47am [facility] Work Phone: [phone] Instructions* Patient Instructions* Bessy Yates APRN.CNP - 08/10/2024 9:17 AM EST Schedule appointment with Dr. Varela ([facility]) Complete sleep study Wednesday Complete cardiac CT at [facility] Red flag symptoms, worsening shortness of breath or chest pain go to ER Continue to monitor blood pressure at home, goal 130/80 or less. Recommend using compression socks and elevating the legs to help with lower leg swelling. Follow up as scheduled documented in this encounterMemorial [facility]02-20-[facility] History of Present illness Narrative* Bessy Yates APRN.VALUE STREAM MANAGER - 08/10/2024 9:00 AM EST This is a 79 year old female who presents today with: Patient presents with: Follow Up: SOB,elevated BP HISTORY OF PRESENT ILLNESS: Kate Oreilly is a 79 year old female. Patient presents with: Follow Up: SOB,elevated BP Here in the office for follow up, following with pulmonology and has been having on going SOB and had elevated BP at last visit. Had an episode at home where she felt dizzy when having SOB. Has not had any other reoccurrences. SOB: Refers that Dr. Louis ordered additional testing. Will be completing repeat in house sleep study at [facility] this up coming Wednesday. Still having daily SOB with activities, will need to rest. No night time wakening's with cough or SOB. No wheezing. Using albuterol inhaler as needed. Post nasal drip which has been on going. Will be completing PFT's in the future. Elevated BP at specialist office, normal in office today. Has been checking BP at home 130/70's. Chest tightness which is constant and worse with SOB. Mild lower leg swelling. Taking Lasix 40 mg daily, Losartan 100 mg daily. Echo completed, showed Mild to moderate mitral annular calcifications. Will be having heart CT to evaluate calcifications noted on Echo. Discussions of a possible heart cath. Had a heart cath in 2021. Use to see Cardiology, [facility], Dr. Varela, has been a couple of years. Was instructed she no longer needed to follow with them. PAST MEDICAL HISTORY: PAST MEDICAL HISTORY Diagnosis Date Diverticulosis of colon (without mention of hemorrhage) Family history of malignant neoplasm of gastrointestinal tract Head injury 09/30 trip fall HTN (hypertension) Hypothyroidism Internal hemorrhoids without mention of complication SREEKANTH (obstructive sleep apnea) Other and unspecified hyperlipidemia Pneumonia 07/2011 Snoring Trigeminal neuralgia PAST SURGICAL HISTORY Procedure Laterality Date BIOPSY BREAST OPEN INCISIONAL Left LATE ' Bx of breast, incisional COLONOSCOPY FLX DX W/COLLJ SPEC WHEN PFRMD 03/12/2008 COLONOSCOPY FLX DX W/COLLJ SPEC WHEN PFRMD 02/05/2014 Colonoscopy COLONOSCOPY FLX DX W/COLLJ SPEC WHEN PFRMD 05/20/2015 Colonoscopy COLONOSCOPY FLX DX W/COLLJ SPEC WHEN PFRMD 01/23/2019 Colonoscopy PAST SURGICAL HISTORY OF 09/03/2010 CRANIECTOMY EXCISON TUMOR, INFRATENTORIAL OR POST FOSSA, MENIGIOMA PAST SURGICAL HISTORY OF 05/06/2011 right MVD fro [place] PAST SURGICAL HISTORY OF 04/2019 Trigeminal neuralgia surgery. Brain leak in August 2019 REMOVAL GALLBLADDER N/A 08/30/2022 TONSILLECTOMY PRIMARY/SECONDARY <AGE 12 A CHILD Tonsillectomy XCAPSL CTRC RMVL INSJ IO LENS PROSTH W/O ECP 2012 Cataract Extraction with PC IOL XCAPSL CTRC RMVL INSJ IO LENS PROSTH W/O ECP 2012 Cataract Extraction with PC IOL ALLERGIES Amoxicillin, Carbamazepine, Codeine, Percocet [Oxycodone- Acetaminophen], Tegretol [Carbamazepine Analogues], Tramadol, Vicodin [Hydrocodone-Acetaminophen], Vioxx [Rofecoxib], Demerol [Meperidine Hcl], Neurontin [Gabapentin], Topamax [Topiramate], and Fentanyl MEDICATIONS Current Outpatient Medications Medication Sig Pregabalin (LYRICA) 200 mg capsule Take 1 capsule by mouth once daily for 180 days. losartan (COZAAR) 100 mg tablet Take 1 tablet by mouth once daily. levothyroxine (SYNTHROID) 100 mcg tablet take 1 tablet by mouth once daily on an empty stomach furosemide (LASIX) 40 mg tablet Take 1 tablet by mouth once daily. montelukast (SINGULAIR) 10 mg tablet Take 1 tablet by mouth daily at bedtime. Sennosides 25 mg tab Take 1 tablet by mouth daily at bedtime. No current facility-administered medications for this visit. FAMILY HISTORY Problem Relation Age of Onset Alzheimer's Disease Mother Heart Mother pacemaker Stroke Mother Heart Father VALVE REPLACEMENT,PACE MAKER Heart Sister Heart Brother Heart Brother Colon Cancer Sister Breast Cancer Sister Breast Cancer Daughter Social History Tobacco Use Smoking status: Never Smokeless tobacco: Never Vaping Use Vaping status: Never Used Substance Use Topics Alcohol use: No Drug use: No REVIEW OF SYSTEMS GENERAL: No weight loss, malaise or fevers/chills HEENT: Negative for frequent or significant headaches, No changes in hearing or vision. NECK: Negative for lumps, goiter, pain and significant neck swelling RESPIRATORY: + SOB CARDIOVASCULAR: Chest tightness GI: No nausea, vomiting, or diarrhea/constipation. No hematochezia/melena. No heartburn or reflux symptoms. : No history of dysuria, frequency or incontinence MUSCULOSKELETAL: Negative for joint pain or swelling. SKIN: Negative for lesions, rash, and itching ENDOCRINE: Negative for cold or heat intolerance, polyuria, polydipsia and goiter NEURO: No history of headaches, syncope, paralysis, seizures or tremors MOOD: Negative for depression, anxiety, or suicidal ideation. EXAM: BP 136/68 Pulse 71 Resp 16 Wt 90.5 kg (199 lb 8.3 oz) LMP (LMP Unknown) SpO2 100% BMI 31.25 kg/m PHYSICAL EXAM: General Appearance: Well appearing, alert, in no acute distress, well-hydrated, well nourished. Skin: Skin color, texture, turgor normal, no suspicious rashes or lesions. Head: Normocephalic, no masses, lesions, tenderness or abnormalities. Eyes: Anicteric sclera. Extraocular movements are intact. . Lungs: Lungs clear to auscultation. No wheezing, rhonchi, rales. Heart: RRR without murmur, gallop, or rubs. No ectopy. Extremities: No deformities, edema, skin discoloration, clubbing or cyanosis. Good capillary refill. Peripheral Pulses: Normal, Capillary refill <2secs, strong peripheral pulses, Pulses palpable. Neurologic: Gait normal. Sensation grossly intact. ECG: NSR with left axis deviation. No st elevation or depression. ASSESSMENT/PLAN: 1. Chest tightness - ICD9: 786.59, ICD10: R07.89 (primary diagnosis) - Recommend having follow up with [facility] at [facility] - Instructed to monitor symptoms at home, red flag symptoms given to patient, she verbalizes understanding when to seek emergency care. - Complete CT ordered by pulmonology - CONSULT TO CARDIOLOGY - ECG COMPLETE 2. SOB (shortness of breath) - ICD9: 786.05, ICD10: R06.02 - Complete in lab sleep study this weekend. - Continue with albuterol as needed. - CONSULT TO CARDIOLOGY - ECG COMPLETE 3. Dizziness - ICD9: 780.4, ICD10: R42 - same plan as #1. 4. 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 Discussed treatment plan and patient voices understanding. Patient's questions answered appropriately. Medications and potential side effects were discussed and patient voices understanding. Bessy Yates APRN.DENVER This note was partially generated using [employer] voice recognition system. Note was reviewed for accuracy. There may be minor misspellings or grammar miscues with [employer] voice recognition. I spent a total of 40 minutes on the date of the service which included preparing to see the patient, [id number] patient care, completing clinical documentation, obtaining and/or reviewing separately obtained history, performing a medically appropriate examination, counseling and educating the pat ient/family/caregiver, ordering medications, tests, or procedures, independently interpreting results (not separately reported), and care coordination (not separately reported). documented in this encounterMemorial Health [facility]02-20-2025 NoteHNO ID: [id number] Author: BESSY YATES APRN.DENVER Service: ? Author Type: Nurse Practitioner Type: Progress Notes Filed: 08/10/2024 15:27 Note Text: This is a 79 year old female who presents today with: Patient presents with: Follow Up: SOB,elevated BP HISTORY OF PRESENT ILLNESS: Kate Oreilly is a 79 year old female. Patient presents with: Follow Up: SOB,elevated BP Here in the office for follow up, following with pulmonology and has been having on going SOB and had elevated BP at last visit. Had an episode at home where she felt dizzy when having SOB. Has not had any other reoccurrences. SOB: Refers that Dr. Louis ordered additional testing. Will be completing repeat in house sleep study at [facility] this up coming Wednesday. Still having daily SOB with activities, will need to rest. No night time wakening's with cough or SOB. No wheezing. Using albuterol inhaler as needed. Post nasal drip which has been on going. Will be completing PFT's in the future. Elevated BP at specialist office, normal in office today. Has been checking BP at home 130/70's. Chest tightness which is constant and worse with SOB. Mild lower leg swelling. Taking Lasix 40 mg daily, Losartan 100 mg daily. Echo completed, showed Mild to moderate mitral annular calcifications. Will be having heart CT to evaluate calcifications noted on Echo. Discussions of a possible heart cath. Had a heart cath in 2021. Use to see Cardiology, [facility], Dr. Varela, has been a couple of years. Was instructed she no longer needed to follow with them. PAST MEDICAL HISTORY: PAST MEDICAL HISTORY Diagnosis Date Diverticulosis of colon (without mention of hemorrhage) Family history of malignant neoplasm of gastrointestinal tract Head injury 09/30 trip fall HTN (hypertension) Hypothyroidism Internal hemorrhoids without mention of complication SREEKANTH (obstructive sleep apnea) Other and unspecified hyperlipidemia Pneumonia 07/2011 Snoring Trigeminal neuralgia PAST SURGICAL HISTORY Procedure Laterality Date BIOPSY BREAST OPEN INCISIONAL Left LATE Bx of breast, incisional COLONOSCOPY FLX DX W/COLLJ SPEC WHEN PFRMD 03/12/2008 COLONOSCOPY FLX DX W/COLLJ SPEC WHEN PFRMD 02/05/2014 Colonoscopy COLONOSCOPY FLX DX W/COLLJ SPEC WHEN PFRMD 05/20/2015 Colonoscopy COLONOSCOPY FLX DX W/COLLJ SPEC WHEN PFRMD 01/23/2019 Colonoscopy PAST SURGICAL HISTORY OF 09/03/2010 CRANIECTOMY EXCISON TUMOR, INFRATENTORIAL OR POST FOSSA, MENIGIOMA PAST SURGICAL HISTORY OF 05/06/2011 right [place]VD fro [place] PAST SURGICAL HISTORY OF 04/2019 Trigeminal neuralgia surgery. Brain leak in August 2019 REMOVAL GALLBLADDER N/A 08/30/2022 TONSILLECTOMY PRIMARY/SECONDARY Tonsillectomy XCAPSL CTRC RMVL INSJ IO LENS PROSTH W/O ECP 2012 Cataract Extraction with PC IOL XCAPSL CTRC RMVL INSJ IO LENS PROSTH W/O ECP 2012 Cataract Extraction with PC IOL ALLERGIES Amoxicillin, Carbamazepine, Codeine, Percocet [Oxycodone-Acetaminophen], Tegretol [Carbamazepine Analogues], Tramadol, Vicodin [Hydrocodone-Acetaminophen], Vioxx [Rofecoxib], Demerol [Meperidine Hcl], Neurontin [Gabapentin], Topamax [Topiramate], and Fentanyl MEDICATIONS Current Outpatient Medications Medication Sig Pregabalin (LYRICA) 200 mg capsule Take 1 capsule by mouth once daily for 180 days. losartan (COZAAR) 100 mg tablet Take 1 tablet by mouth once daily. levothyroxine (SYNTHROID) 100 mcg tablet take 1 tablet by mouth once daily on an empty stomach furosemide (LASIX) 40 mg tablet Take 1 tablet by mouth once daily. montelukast (SINGULAIR) 10 mg tablet Take 1 tablet by mouth daily at bedtime. Sennosides 25 mg tab Take 1 tablet by mouth daily at bedtime. No current facility-administered medications for this visit. FAMILY HISTORY Problem Relation Age of Onset Alzheimer's Disease Mother Heart Mother pacemaker Stroke Mother Heart Father VALVE REPLACEMENT,PACE MAKER Heart Sister Heart Brother Heart Brother Colon Cancer Sister Breast Cancer Sister Breast Cancer Daughter Social History Tobacco Use Smoking status: Never Smokeless tobacco: Never Vaping Use Vaping status: Never Used Substance Use Topics Alcohol use: No Drug use: No REVIEW OF SYSTEMS GENERAL: No weight loss, malaise or fevers/chills HEENT: Negative for frequent or significant headaches, No changes in hearing or vision. NECK: Negative for lumps, goiter, pain and significant neck swelling RESPIRATORY: + SOB CARDIOVASCULAR: Chest tightness GI: No nausea, vomiting, or diarrhea/constipation. No hematochezia/melena. No heartburn or reflux symptoms. : No history of dysuria, frequency or incontinence MUSCULOSKELETAL: Negative for joint pain or swelling. SKIN: Negative for lesions, rash, and itching ENDOCRINE: Negative for cold or heat intolerance, polyuria, polydipsia and goiter NEURO: No history of headaches, syncope, paralysis, s (more content not included)...[facility]02-10-2025 Telephone encounter Note* Telephone Encounter - Samantha Chaidez RN - 07/31/2024 1:12 PM EST eLslie Upton Np, in Dr. Singh office, called to report update on patient. Reports patient was seen in their office today with SOB. Patient reported to Assistant Attorney General that on , she was having SOB, chest tightness/pressure BP 181/80 (114). Patient reported she didn't go to ER b/c she feared the flu. Pulmonary did a HTN work up- Reports patient was stable today, BP 128/72 (108), SOB has worsened, but 98% POX- albuterol has not been helping with the SOB, LCTA, patient taking lasix for lower extremity edema- and having trace swelling. Pulmonary scheduled patient for an ECHO on Wednesday08/04/24. Patient will see Pulmonary Assistant Attorney General again on 08/07/24. Assistant Attorney General asking pcp office to call patient and schedule f/u in pcp office. Phoned patient and scheduled appt with Assistant Attorney General in pcp office for 08/10/24. [facility]02-10-2025 Miscellaneous Notes* Telephone Encounter - Samantha Chaidez RN - 07/31/2024 1:12 PM EST Leslie Upton Np, in Dr. Singh office, called to report update on patient. Reports patient was seen in their office today with SOB. Patient reported to Assistant Attorney General that on , she was having SOB, chest tightness/pressure BP 181/80 (114). Patient reported she didn't go to ER b/c she feared the flu. Pulmonary did a HTN work up- Reports patient was stable today, BP 128/72 (108), SOB has worsened, but 98% POX- albuterol has not been helping with the SOB, LCTA, patient taking lasix for lower extremity edema- and having trace swelling. Pulmonary scheduled patient for an ECHO on Wednesday08/04/24. Patient will see Pulmonary Assistant Attorney General again on 08/07/24. Assistant Attorney General asking pcp office to call patient and schedule f/u in pcp office. Phoned patient and scheduled appt with Assistant Attorney General in pcp office for 08/10/24. documented in this encounter[facility] History of Present illness Narrative* Kenn Beauchamp MD - 03/16/2024 9:20 AM EDT Chief Complaint Patient presents with: F/U 6 months HPI Kate Oreilly is a 79 year old female who presents here today for 6 month follow up. 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 No bowel, Gi, or urinary issues. Uses colace prn constipation but this has been doing well as long as she is eating salads. Thyroid: Taking Synthroid 100 mcg daily. No missed dosages. Wondering about [place]'s as her grand daughter has it and pt feels she has symptoms. Her grand daughter was gaining weight rapidly. Pt feels that she is having trouble with losing weight, can't seem to get under 200 lbs. Had brain tumor removed in 2008. She states she hasn't had anyone following that since. She is limited on how far she can drive. Unsure where a local neurosurgeon is. She has dizziness and balance problems. The dizziness is not as bad if she eats eggs in the mornings. Edema: linda legs; stable with Lasix 40 mg 1 pill once daily, supposed to use bid. Uses Compression stockings some, not much in the summer. Elevation when feet/legs burn. Pain: Chronic pain due to trigeminal neuralgia and chronic back pain. Taking Lyrica 200 mg 1 cap daily; recently cut down from twice a day. PCP agreed to start prescribing her Lyrica at last OV. Was following with Pain Management Dr. Yadav but declined any further follow ups as she was not gettingany relief with all alternatives tried. Injections made her feel worse. Lipid/Glucose: Currently on no medications. Tries to watch diet. Tries to exercise as much as she is able. HTN: Follows with [facility]. Does not check BP much at home. Taking Losartan 100 mg daily. Denies any chest pains. Has chronic SOB and issues with dizziness and balance. Feels the SOB wouldimprove if she could lose some weight. SREEKANTH: Taking Singulair 10 mg daily. Follows with Freedom Osman at [facility] for SOB/SREEKANTH. Wears CPAP nightly, sleeps well on average gets 8 hours of good sleep. Feels her SOB would improve if she could lose some weight. Past medical history, appointments, medications, allergies reviewed. Previous Medical History PAST MEDICAL HISTORY Diagnosis Date Diverticulosis of colon (without mention of hemorrhage) Family history of malignant neoplasm of gastrointestinal tract Head injury 09/30 trip fall HTN (hypertension) Hypothyroidism Internal hemorrhoids without mention of complication SREEKANTH (obstructive sleep apnea) Other and unspecified hyperlipidemia Pneumonia 07/2011 Snoring Trigeminal neuralgia Previous Surgical History PAST SURGICAL HISTORY Procedure Laterality Date BIOPSY BREAST OPEN INCISIONAL Left LATE Bx of breast, incisional COLONOSCOPY FLX DX W/COLLJ SPEC WHEN PFRMD 03/12/2008 COLONOSCOPY FLX DX W/COLLJ SPEC WHEN PFRMD 02/05/2014 Colonoscopy COLONOSCOPY FLX DX W/COLLJ SPEC WHEN PFRMD 05/20/2015 Colonoscopy COLONOSCOPY FLX DX W/COLLJ SPEC WHEN PFRMD 01/23/2019 Colonoscopy PAST SURGICAL HISTORY OF 09/03/2010 CRANIECTOMY EXCISON TUMOR, INFRATENTORIAL OR POST FOSSA, MENIGIOMA PAST SURGICAL HISTORY OF 05/06/2011 right MVD fro [place] PAST SURGICAL HISTORY OF 04/2019 Trigeminal neuralgia surgery. Brain leak in August 2019 REMOVAL GALLBLADDER N/A 08/30/2022 TONSILLECTOMY PRIMARY/SECONDARY <AGE 12 A CHILD Tonsillectomy XCAPSL CTRC RMVL INSJ IO LENS PROSTH W/O ECP 2012 Cataract Extraction with PC IOL XCAPSL CTRC RMVL INSJ IO LENS PROSTH W/O ECP 2012 Cataract Extraction with PC IOL Family History FAMILY HISTORY Problem Relation Age of Onset Alzheimer's Disease Mother Heart Mother pacemaker Stroke Mother Heart Father VALVE REPLACEMENT,PACE MAKER Heart Sister Heart Brother Heart Brother Colon Cancer Sister Breast Cancer Sister Breast Cancer Daughter Patient Allergies ALLERGIES Allergen Reactions Amoxicillin Rash Carbamazepine Rash Codeine Vomiting Percocet [Oxycodone* Vomiting Tegretol [Carbamaze* Vomiting Dizziness, couldn't see straight Skin reaction when went in sun Tramadol Vomiting Vicodin [Hydrocodon* Vomiting Vioxx [Rofecoxib] Rash Demerol [Meperidine* Intolerance Neurontin [Gabapent* Intolerance Dizziness, feeling like I couldn't work Topamax [Topiramate] Intolerance Flushed, red skin Fentanyl GI Upset Current Medications Current Outpatient Medications on File Prior to Visit Medication Sig Pregabalin (LYRICA) 200 mg capsule Take 1 capsule by mouth once daily for 90 days. levothyroxine (SYNTHROID) 100 mcg tablet take 1 tablet by mouth once daily on an empty stomach furosemide (LASIX) 40 mg tablet Take 1 tablet by mouth once daily. montelukast (SINGULAIR) 10 mg tablet Take 1 tablet by mouth daily at bedtime. losartan (COZAAR) 100 mg tablet Take 1 tablet by mouth once daily. Sennosides 25 mg tab Take 1 tablet by mouth daily at bedtime. No current facility-administered medications on file prior to visit. Social History Social History Tobacco Use Smoking status: Never Smokeless tobacco: Never Vaping Use Vaping status: Never Used Substance Use Topics Alcohol use: No Drug use: No EXAM: BP 140/70 Pulse 68 Resp 16 Wt 92.6 kg (204 lb 2.3 oz) LMP (LMP Unknown) BMI 31.97 kg/m General Appearance: Well appearing, alert, in no acute distress, well-hydrated, well nourished. andOverweight. Neck: Supple, no adenopathy; thyroid symmetric, normal size. Lungs: Lungs clear to auscultation. No wheezing, rhonchi, rales.. Heart: RRR without murmur, gallop, or rubs. No ectopy. Health Maintenance List Depression Screening Never done Anxiety Screening Never done BP Controlled (<130/80) Never done DTaP,Tdap,Td Vaccine(2 - Td or Tdap) due on 10/09/2017 Covid-19 Vaccine( season) due on 02/20/2024 Influenza Vaccine(1) due on 02/20/2024 Annual PCP Team Chronic Disease Visit due on 03/16/2025 Diabetes Screening due on 03/06/2027 Bone Density Screening Completed Advance Directive Discussion Completed RSV Vaccine Completed Shingrix Vaccine Completed Pneumococcal Vaccine: 65+ Completed Mammogram Screening Discontinued Colorectal Cancer Screening Discontinued Data reviewed Appointment on 03/06/2024 Component Date Value Protein, Total 03/06/2024 6.4 Albumin 03/06/2024 4.0 Calcium, Total 03/06/2024 8.8 Bilirubin, Total 03/06/2024 0.3 Alkaline Phosphatase 03/06/2024 75 AST 03/06/2024 20 ALT 03/06/2024 15 Glucose 03/06/2024 109 (H) BUN 03/06/2024 15 Creatinine 03/06/2024 0.91 Sodium 03/06/2024 138 Potassium 03/06/2024 4.3 Chloride 03/06/2024 103 CO2 03/06/2024 24 Anion Gap 03/06/2024 11 Estimated Glomerular Duran* 03/06/2024 64 Cholesterol, Total 03/06/2024 201 (H) Triglyceride 03/06/2024 96 HDL Cholesterol 03/06/2024 62 Non HDL Cholesterol 03/06/2024 139 (H) Fasting Time 03/06/2024 12 VLDL Cholesterol 03/06/2024 19 TC:HDL Ratio 03/06/2024 3.24 LDL Cholesterol 03/06/2024 120 (H) LDL:HDL Ratio 03/06/2024 1.94 TSH 03/06/2024 1.780 Hemoglobin A1C 03/06/2024 5.8 (H) Estimated Average Glucose 03/06/2024 120 ASSESSMENT/PLAN: 1. Trigeminal neuralgia - ICD9: 350.1, ICD10: G50.0 (primary diagnosis) stable - PREGABALIN 200 MG CAPSULE 2. Essential hypertension, benign - ICD9: 401.1, ICD10: I10 - Controlled - Continue current medications - Recommend home blood pressure monitoring, to bring results to next visit - Encouraged sodium restriction, DASH or Mediterranean diet - Recommend regular aerobic exercise - Discussed need for and benefit of weight loss. BMI 31.97 kg/(m^2) - LOSARTAN 100 MG TABLET 3. Screening for depression - ICD9: V79.0, ICD10: Z13.31 - DEPRESSION SCREENING 4. Encounter for screening examination for other mental health and behavioral disorders - ICD9: V79.8, ICD10: Z13.39 - ANXIETY SCREENING 5. Encounter for immunization - ICD9: V03.89, ICD10: Z23 Covid vaccine given today in office 6. Need for vaccination - ICD9: V05.9, ICD10: Z23 Covid vaccine given in office today 7. Hypothyroidism, unspecified type - ICD9: 244.9, ICD10: E03.9 - Instructed patient on importance of taking on an empty stomach either first thing in the morning or at bedtime. Continue current medications. 8. Hyperlipidemia, mixed - ICD9: 272.2, ICD10: E78.2 - Controlled - Continue current medications - Counseled on healthy diet and regular exercise - Discussed need for and benefit of weight loss. BMI 31.97 kg/(m^2) 9. Bilateral leg edema - ICD9: 782.3, ICD10: R60.0 Stable Continue current medications. Follow up in 6 months with fasting labs prior. I agree with the Chief Complaint, ROS, and Past Histories independently gathered by the clinical direct support professional and the remaining scribed note accurately describes my personal service to the patient. Medical Decision Making: Problems: Moderate: 2+ stable chronic illnesses Data: Unique test result(s) reviewed: 3+ Unique test(s) ordered: 3+ Risk: Moderate: Drug management Medical Decision Making Level: 4 - Moderate Kenn Beauchamp MD The documentation for this note was completed by Lupe Sapp MA acting as scribe for Kenn Beauchamp MD. March 16, 2024 9:11 AM. Lupe Sapp MA documented in this encounterMem[facility] NoteHNO ID: [id number] Author: KENN BEAUCHAMP MD Service: ? Author Type: Physician Type: Progress Notes Filed: 03/16/2024 16:54 Note Text: Chief Complaint Patient presents with: F/U 6 months HPI Kate Oreilly is a 79 year old female who presents here today for 6 month follow up. 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 No bowel, Gi, or urinary issues. Uses colace prn constipation but this has been doing well as long as she is eating salads. Thyroid: Taking Synthroid 100 mcg daily. No missed dosages. Wondering about [place]'s as her grand daughter has it and pt feels she has symptoms. Her grand daughter was gaining weight rapidly. Pt feels that she is having trouble with losing weight, can't seem to get under 200 lbs. Had brain tumor removed in 2008. She states she hasn't had anyone following that since. She is limited on how far she can drive. Unsure where a local neurosurgeon is. She has dizziness and balance problems. The dizziness is not as bad if she eats eggs in the mornings. Edema: linda legs; stable with Lasix 40 mg 1 pill once daily, supposed to use bid. Uses Compression stockings some, not much in the summer. Elevation when feet/legs burn. Pain: Chronic pain due to trigeminal neuralgia and chronic back pain. Taking Lyrica 200 mg 1 cap daily; recently cut down from twice a day. PCP agreed to start prescribing her Lyrica at last OV. Was following with Pain Management Dr. Yadav but declined any further follow ups as she was not getting any relief with all alternatives tried. Injections made her feel worse. Lipid/Glucose: Currently on no medications. Tries to watch diet. Tries to exercise as much as she is able. HTN: Follows with [facility]. Does not check BP much at home. Taking Losartan 100 mg daily. Denies any chest pains. Has chronic SOB and issues with dizziness and balance. Feels the SOB would improve if she could lose some weight. SREEKANTH: Taking Singulair 10 mg daily. Follows with Freedom Osman at [facility] for SOB/SREEKANTH. Wears CPAP nightly, sleeps well on average gets 8 hours of good sleep. Feels her SOB would improve if she could lose some weight. Past medical history, appointments, medications, allergies reviewed. Previous Medical History PAST MEDICAL HISTORY Diagnosis Date Diverticulosis of colon (without mention of hemorrhage) Family history of malignant neoplasm of gastrointestinal tract Head injury 09/30 trip fall HTN (hypertension) Hypothyroidism Internal hemorrhoids without mention of complication SREEKANTH (obstructive sleep apnea) Other and unspecified hyperlipidemia Pneumonia 07/2011 Snoring Trigeminal neuralgia Previous Surgical History PAST SURGICAL HISTORY Procedure Laterality Date BIOPSY BREAST OPEN INCISIONAL Left LATE Bx of breast, incisional COLONOSCOPY FLX DX W/COLLJ SPEC WHEN PFRMD 03/12/2008 COLONOSCOPY FLX DX W/COLLJ SPEC WHEN PFRMD 02/05/2014 Colonoscopy COLONOSCOPY FLX DX W/COLLJ SPEC WHEN PFRMD 05/20/2015 Colonoscopy COLONOSCOPY FLX DX W/COLLJ SPEC WHEN PFRMD 01/23/2019 Colonoscopy PAST SURGICAL HISTORY OF 09/03/2010 CRANIECTOMY EXCISON TUMOR, INFRATENTORIAL OR POST FOSSA, MENIGIOMA PAST SURGICAL HISTORY OF 05/06/[place] fro [place] PAST SURGICAL HISTORY OF 04/2019 Trigeminal neuralgia surgery. Brain leak in August 2019 REMOVAL GALLBLADDER N/A 08/30/2022 TONSILLECTOMY PRIMARY/SECONDARY Tonsillectomy XCAPSL CTRC RMVL INSJ IO LENS PROSTH W/O ECP 2012 Cataract Extraction with PC IOL XCAPSL CTRC RMVL INSJ IO LENS PROSTH W/O ECP 2012 Cataract Extraction with PC IOL Family History FAMILY HISTORY Problem Relation Age of Onset Alzheimer's Disease Mother Heart Mother pacemaker Stroke Mother Heart Father VALVE REPLACEMENT,PACE MAKER Heart Sister Heart Brother Heart Brother Colon Cancer Sister Breast Cancer Sister Breast Cancer Daughter Patient Allergies ALLERGIES Allergen Reactions Amoxicillin Rash Carbamazepine Rash Codeine Vomiting Percocet [Oxycodone* Vomiting Tegretol [Carbamaze* Vomiting Dizziness, couldn't see straight Skin reaction when went in sun Tramadol Vomiting Vicodin [Hydrocodon* Vomiting Vioxx [Rofecoxib] Rash Demerol [Meperidine* Intolerance Neurontin [Gabapent* Intolerance Dizziness, feeling like I couldn't work Topamax [Topiramate] Intolerance Flushed, red skin Fentanyl GI Upset Current Medications Current Outpatient Medications on File Prior to Visit Medication Sig Pregabalin (LYRICA) 200 mg capsule Take 1 capsule by mouth once daily for 90 days. levothyroxine (SYNTHROID) 100 mcg tablet take 1 tablet by mouth once daily on an empty stomach furosemide (LASIX) 40 mg tablet Take 1 tablet by mouth once daily. montelukast (SINGULAIR) 10 mg tablet Take 1 ta (more content not included)... [facility]07-22-2024 Telephone encounter Note* Telephone Encounter - Gary Odell APRN.CNP - 01/10/2024 8:46 AM EDT Approved. PDMP website checked and validated. All prescriptions have been APPROPRIATELY filled. No suspiciousactivity was identified. 01/10/2024 by Gary Odell APRN.CNP The following approved medication requests have been transmitted electronically. Requested Prescriptions Signed Prescriptions Disp Refills Pregabalin (LYRICA) 200 mg capsule 90 capsule 0 Sig: Take 1 capsule by mouth once daily for 90 days. Authorizing Provider: GARY ODELL APRN.CNP [facility]07-22-2024 Miscellaneous Notes* Telephone Encounter - Gary Odell APRN.CNP - 01/10/2024 8:46 AM EDT Approved. PDMP website checked and validated. All prescriptions have been APPROPRIATELY filled. No suspiciousactivity was identified. 01/10/2024 by Gary Odell APRN.CNP The following approved medication requests have been transmitted electronically. Requested Prescriptions Signed Prescriptions Disp Refills Pregabalin (LYRICA) 200 mg capsule 90 capsule 0 Sig: Take 1 capsule by mouth once daily for 90 days. Authorizing Provider: GARY ODELL APRN.CNP * Telephone Encounter - Lenora Aguilar MA - 01/10/2024 8:17 AM EDT Prescription Refill Information The patient has been identified by name and date of : Yes Caregiver verified no other encounters exist for this prescription request: Yes Caregiver confirmed with patient/requestor that no other refills are due, in the near future, with this provider at this time: Yes The last office visit in the department: Does the patient have a future office visit with this provider/department: Yes 02/2024 Last refill: 09/2023 Requested Prescriptions Pending Prescriptions Disp Refills Pregabalin (LYRICA) 200 mg capsule 90 capsule 0 Sig: Take 1 capsule by mouth once daily for 90 days. Lenora Aguilar MA January 10, 2024 8:17 AM * Telephone Encounter - Diana Mata - 01/10/2024 8:05 AM EDT Prescription Refill Information The patient has been identified by name and date of : Yes Caregiver verified no other encounters exist for this prescription request: Yes Caregiver confirmed with patient/requestor that no other refills are due, in the near future, with this provider at this time: Yes The last office visit in the department: 08/26/23 Does the patient have a future office visit with this provider/department: Yes Requested Prescriptions Pending Prescriptions Disp Refills Pregabalin (LYRICA) 200 mg capsule 90 capsule 0 Sig: Take 1 capsule by mouth once daily for 90 days. Diana Barragan January 10, 2024 8:06 AM documented in this encounterMem[facility] Telephone encounter Note * Telephone Encounter - Lenora Aguilar MA - 01/10/2024 8:17 AM EDT Prescription Refill Information The patient has been identified by name and date of : Yes Caregiver verified no other encounters exist for this prescription request: Yes Caregiver confirmed with patient/requestor that no other refills are due, in the near future, with this provider at this time: Yes The last office visit in the department: Does the patient have a future office visit with this provider/department: Yes 02/2024 Last refill: 09/2023 Requested Prescriptions Pending Prescriptions Disp Refills Pregabalin (LYRICA) 200 mg capsule 90 capsule 0 Sig: Take 1 capsule by mouth once daily for 90 days. Lenora Aguilar MA January 10, 2024 8:17 AM [facility]07-22-2024 Telephone encounter Note* Telephone Encounter - Diana Mata - 01/10/2024 8:05 AM EDT Prescription Refill Information The patient has been identified by name and date of : Yes Caregiver verified no other encounters exist for this prescription request: Yes Caregiver confirmed with patient/requestor that no other refills are due, in the near future, with this provider at this time: Yes The last office visit in the department: 08/26/23 Does the patient have a future office visit with this provider/department: Yes Requested Prescriptions Pending Prescriptions Disp Refills Pregabalin (LYRICA) 200 mg capsule 90 capsule 0 Sig: Take 1 capsule by mouth once daily for 90 days. Diana Barragan January 10, 2024 8:06 AM [facility]07-16-2024 Telephone encounter Note* Telephone Encounter - Kenn Beauchamp MD - 01/04/2024 8:11 AM EDT OK to refill as ordered Kenn Beauchamp MD [facility]07-16-2024 Miscellaneous Notes* Telephone Encounter - Kenn Beauchamp MD - 01/04/2024 8:11 AM EDT OK to refill as ordered Kenn Beauchamp MD * Telephone Encounter - Lupe Sapp MA - 01/04/2024 8:03 AM EDT Prescription Refill Information The patient has been identified by name and date of : Yes Caregiver verified no other encounters exist for this prescription request: Yes Caregiver confirmed with patient/requestor that no other refills are due, in the near future, with this provider at this time: none The last office visit in the department: 08/26/23 Does the patient have a future office visit with this provider/department: Yes 03/16/24 Requested Prescriptions Pending Prescriptions Disp Refills levothyroxine (SYNTHROID) 100 mcg tablet [Pharmacy Med Name: Levothyroxine Sodium 100 MCG Oral Tablet] 90 tablet 0 Sig: take 1 tablet by mouth once daily on an empty stomach Lupe Sapp MA January 04, 2024 8:03 AM documented in this encounterMemorial [facility] Telephone encounter Note * Telephone Encounter - Lupe Sapp MA - 01/04/2024 8:03 AM EDT Prescription Refill Information The patient has been identified by name and date of : Yes Caregiver verified no other encounters exist for this prescription request: Yes Caregiver confirmed with patient/requestor that no other refills are due, in the near future, with this provider at this time: none The last office visit in the department: 08/26/23 Does the patient have a future office visit with this provider/department: Yes 03/16/24 Requested Prescriptions Pending Prescriptions Disp Refills levothyroxine (SYNTHROID) 100 mcg tablet [Pharmacy Med Name: Levothyroxine Sodium 100 MCG Oral Tablet] 90 tablet 0 Sig: take 1 tablet by mouth once daily on an empty stomach Lupe aSpp MA January 04, 2024 8:03 AM [facility]07-02-2024 Telephone encounter Note* Telephone Encounter - Kenn Beauchamp MD - 12/21/2023 10:38 AM EDT Corrected Rx sent for once daily Kenn Beauchamp MD [facility]07-02-2024 Miscellaneous Notes* Telephone Encounter - Kenn Beauchamp MD - 12/21/2023 10:38 AM EDT Corrected Rx sent for once daily Kenn Beauchamp MD * Telephone Encounter - Samantha Chaidez RN - 12/21/2023 9:57 AM EDT Thuan Soler reports the lasix 40 mg Rx they received today has 2 sets of instructions on it. Asking which instructions should they use? Please phone Thuan with reply: [phone] documented in this encounterMem[facility] Telephone encounter Note * Telephone Encounter - Samantha Chaidez, CORTEZ - 12/21/2023 9:57 AM EDT Thuan Soler reports the lasix 40 mg Rx they received today has 2 sets of instructions on it. Asking which instructions should they use? Please phone Thuan with reply: [phone] [facility]07-02-2024 Telephone encounter Note* Telephone Encounter - Gary Odell APRN.CNP - 12/21/2023 8:44 AM EDT The following approved medication requests have been transmitted electronically. Requested Prescriptions Pending Prescriptions Disp Refills furosemide (LASIX) 40 mg tablet 90 tablet 3 Sig: Take 1 tablet by mouth once daily. Take 1-2 tabs po daily Gary Odell APRN.CNP [facility]07-02-2024 Miscellaneous Notes* Telephone Encounter - Gary Odell APRN.CNP - 12/21/2023 8:44 AM EDT The following approved medication requests have been transmitted electronically. Requested Prescriptions Pending Prescriptions Disp Refills furosemide (LASIX) 40 mg tablet 90 tablet 3 Sig: Take 1 tablet by mouth once daily. Take 1-2 tabs po daily Gary Odell APRN.CNP * Telephone Encounter - Lupe Sapp MA - 12/21/2023 8:11 AM EDT Prescription Refill Information The patient has been identified by name and date of : Yes Caregiver verified no other encounters exist for this prescription request: Yes Caregiver confirmed with patient/requestor that no other refills are due, in the near future, with this provider at this time: No The last office visit in the department: 08/26/23 Does the patient have a future office visit with this provider/department: Yes 03/16/24 Requested Prescriptions Pending Prescriptions Disp Refills furosemide (LASIX) 40 mg tablet Sig: Take 1 tablet by mouth once daily. Take 1-2 tabs po daily Lupe Sapp MA December 21, 2023 8:11 AM * Telephone Encounter - Wendy Atkinson - 12/21/2023 8:06 AM EDT Patient has been identified by name and date of : Patient phones for refill(s): Requested Prescriptions Pending Prescriptions Disp Refills furosemide (LASIX) 40 mg tablet Sig: Take 1 tablet by mouth once daily. Take 1-2 tabs po daily Date of last office visit in primary care: 08/26/2023 Date of next office visit in primary care: 03/16/2024 Please advise. Thank you. Wendy Atkinson. documented in this encounterMem[facility] Telephone encounter Note * Telephone Encounter - Lupe Sapp MA - 12/21/2023 8:11 AM EDT Prescription Refill Information The patient has been identified by name and date of : Yes Caregiver verified no other encounters exist for this prescription request: Yes Caregiver confirmed with patient/requestor that no other refills are due, in the near future, with this provider at this time: No The last office visit in the department: 08/26/23 Does the patient have a future office visit with this provider/department: Yes 03/16/24 Requested Prescriptions Pending Prescriptions Disp Refills furosemide (LASIX) 40 mg tablet Sig: Take 1 tablet by mouth once daily. Take 1-2 tabs po daily Lupe Sapp MA December 21, 2023 8:11 AM [facility]07-02-2024 Telephone encounter Note* Telephone Encounter - Wendy Atkinson - 12/21/2023 8:06 AM EDT Patient has been identified by name and date of : Patient phones for refill(s): Requested Prescriptions Pending Prescriptions Disp Refills furosemide (LASIX) 40 mg tablet Sig: Take 1 tablet by mouth once daily. Take 1-2 tabs po daily Date of last office visit in primary care: 08/26/2023 Date of next office visit in primary care: 03/16/2024 Please advise. Thank you. Wendy Atkinson. [facility]04-22-2024 Telephone encounter Note* Telephone Encounter - Kenn Beauchamp MD - 10/11/2023 1:41 PM EDT OK to refill as ordered According to her last visit she stopped going to Dr Yadav, and is just taking the Lyrica once daily. Kenn Beauchamp MD [facility]04-22-2024 Miscellaneous Notes* Telephone Encounter - Kenn Beauchamp MD - 10/11/2023 1:41 PM EDT OK to refill as ordered According to her last visit she stopped going to Dr Yadav, and is just taking the Lyrica once daily. Kenn Beauchamp MD * Telephone Encounter - Lupe Sapp MA - 10/11/2023 9:26 AM EDT Pt follows with Pain Management Dr. Yadav. Are you refilling pt Lyrica? Lupe Sapp MA * Telephone Encounter - Fanny Arce - 10/11/2023 8:19 AM EDT Patient has been identified by name and date of : Yes, Provider Dr. Beauchamp Date 10-11-23- Time 8:24 am Patient phones for refill(s): Patient is currently OUT of medication if this can be hari as SOON as possible. Thank you so much. Requested Prescriptions Pending Prescriptions Disp Refills Pregabalin (LYRICA) 200 mg capsule 180 capsule 2 Sig: Take 1 capsule by mouth two times a day for 90 days. [address] Yadav prescribes. Date of last office visit in primary care: 08/26/2023 Date of next office visit in primary care: 03/16/2024 Please advise. Thank you. Fanny Barragan. documented in this encounterMem[facility] Telephone encounter Note * Telephone Encounter - Lupe Sapp MA - 10/11/2023 9:26 AM EDT Pt follows with Pain Management Dr. Yadav. Are you refilling pt Lyrica? Lupe Sapp MA [facility]04-22-2024 Telephone encounter Note* Telephone Encounter - Fnany Arce - 10/11/2023 8:19 AM EDT Patient has been identified by name and date of : Yes, Provider Dr. Beauchamp Date 10-11-23 Time 8:24 am Patient phones for refill(s): Patient is currently OUT of medication if this can be hari as SOON as possible. Thank you so much. Requested Prescriptions Pending Prescriptions Disp Refills Pregabalin (LYRICA) 200 mg capsule 180 capsule 2 Sig: Take 1 capsule by mouth two times a day for 90 days. [address] Ydaav prescribes. Date of last office visit in primary care: 08/26/2023 Date of next office visit in primary care: 03/16/2024 Please advise. Thank you. Fanny Barragan. [facility]03-07-2024 History of Present illness Narrative* Kenn Beauchamp MD - 08/26/2023 11:20 AM EST Chief Complaint Patient presents with: F/U 6 Month HPI Kate Oreilly is a 78 year old female who presents here today for 6 month up. No bowel, Gi, or urinary issues. Uses colace prn constipation. Thyroid: Taking Synthroid 100 mcg daily. No missed dosages HTN: Has not been checking BP at home. Follows with [facility], Cardio. Was recently told not to f/u for 3 years. Taking Losartan 100 mg daily. No chest pains. Chronic sob. Reports dizziness, unsure what the cause of this is, this is a chronic issue. States that this is occurring between 11:00 am to 12:00 pm frequently. Thought this was related to reading too much, but seen her labs and seen her glucose was elevated. Changed from eating a bagel and ate eggs for two days and didn't havean episode. Today she ate oatmeal and now she's starting to get dizzy again. Does have some balanceissues due to the dizziness. Lipid/Glucose: Currently on no medications. Tries to watch diet. Spoke with Daughter, who suggestedto cut out carbs, due to her elevated glucose and feels that her body may be crashing, causing her to have dizziness/vision issues. Admits to having a lot of carbs in her diet. Tries to do some exercise but due to her health issues it's hard to do a lot. Pain: Chronic pain due to trigeminal neuralgia and chronic back pain. Taking Lyrica 200 mg 1 cap daily; recently cut down from twice a day. Was following with Pain Management Dr. Yadav, up until Wednesday but has decided since nothing has worked, she doesn't want to wast going there anymore and have meds prescribed through Primary Care. Has receiving injections that are not helping and making her feel worse. Pt notes that some days are worse then others generally with dizziness, blurred vision and clicking. This occurs more when she's looking down which she does a lot. SREEKANTH: Taking Singulair 10 mg daily. Follows with Freedom Osman at [facility] for SOB/SREEKANTH. Wears CPAP nightly, sleeps well on average gets 8 hours of good sleep. Edema: linda legs; stable with Lasix 40 mg 1 pill once daily, supposed to use bid. Admits to not using compression stockings this summer as much, using compression leggings. Swelling improves over night. Does elevate when feet/legs burning. HM - Has Adv Dir/Living Will on file. Past medical history, appointments, medications, allergies reviewed. Previous Medical History PAST MEDICAL HISTORY Diagnosis Date Diverticulosis of colon (without mention of hemorrhage) Family history of malignant neoplasm of gastrointestinal tract Head injury 09/30 trip fall HTN (hypertension) Hypothyroidism Internal hemorrhoids without mention of complication SREEKANTH (obstructive sleep apnea) Other and unspecified hyperlipidemia Pneumonia 07/2011 Snoring Trigeminal neuralgia Previous Surgical History PAST SURGICAL HISTORY Procedure Laterality Date BIOPSY BREAST OPEN INCISIONAL Left LATE Bx of breast, incisional COLONOSCOPY FLX DX W/COLLJ SPEC WHEN PFRMD 03/12/2008 COLONOSCOPY FLX DX W/COLLJ SPEC WHEN PFRMD 02/05/2014 Colonoscopy COLONOSCOPY FLX DX W/COLLJ SPEC WHEN PFRMD 05/20/2015 Colonoscopy COLONOSCOPY FLX DX W/COLLJ SPEC WHEN PFRMD 01/23/2019 Colonoscopy PAST SURGICAL HISTORY OF 09/03/2010 CRANIECTOMY EXCISON TUMOR, INFRATENTORIAL OR POST FOSSA, MENIGIOMA PAST SURGICAL HISTORY OF 05/06/2011 right MVD fro [place] PAST SURGICAL HISTORY OF 04/2019 Trigeminal neuralgia surgery. Brain leak in August 2019 REMOVAL GALLBLADDER N/A 08/30/2022 TONSILLECTOMY PRIMARY/SECONDARY <AGE 12 A CHILD Tonsillectomy XCAPSL CTRC RMVL INSJ IO LENS PROSTH W/O ECP 2012 Cataract Extraction with PC IOL XCAPSL CTRC RMVL INSJ IO LENS PROSTH W/O ECP 2012 Cataract Extraction with PC IOL Family History FAMILY HISTORY Problem Relation Age of Onset Alzheimer's Disease Mother Heart Mother pacemaker Stroke Mother Heart Father VALVE REPLACEMENT,PACE MAKER Heart Sister Heart Brother Heart Brother Colon Cancer Sister Breast Cancer Sister Breast Cancer Daughter Patient Allergies ALLERGIES Allergen Reactions Amoxicillin Rash Carbamazepine Rash Codeine Vomiting Percocet [Oxycodone* Vomiting Tegretol [Carbamaze* Vomiting Dizziness, couldn't see straight Skin reaction when went in sun Tramadol Vomiting Vicodin [Hydrocodon* Vomiting Vioxx [Rofecoxib] Rash Demerol [Meperidine* Intolerance Neurontin [Gabapent* Intolerance Dizziness, feeling like I couldn't work Topamax [Topiramate] Intolerance Flushed, red skin Fentanyl GI Upset Current Medications Current Outpatient Medications on File Prior to Visit Medication Sig losartan (COZAAR) 100 mg tablet Take 1 tablet by mouth once daily. pregabalin (LYRICA) 200 mg capsule Take 1 capsule by mouth twice daily. [address] Yadav prescribes[address] furosemide (LASIX) 40 mg tablet Take 1 tablet by mouth once daily. Take 1-2 tabs po daily levothyroxine (SYNTHROID) 100 mcg tablet Take 1 tablet by mouth once daily. Take on empty stomach montelukast (SINGULAIR) 10 mg tablet Take 1 tablet by mouth daily at bedtime. Sennosides 25 mg tab Take 1 tablet by mouth daily at bedtime. multivitamin tablet Take 1 tablet by mouth once daily. No current facility-administered medications on file prior to visit. Social History Social History Tobacco Use Smoking status: Never Smokeless tobacco: Never Vaping Use Vaping Use: Never used Substance Use Topics Alcohol use: No Drug use: No EXAM: BP 134/72 (BP Site: Left Arm, BP Position: Sitting, BP Cuff Size: Regular Adult) Pulse 68 Resp 18 Wt 93.4 kg (206 lb) LMP (LMP Unknown) BMI 32.26 kg/m General Appearance: Well appearing, alert, in no acute distress, well-hydrated, well nourished. andObese. Neck: Supple, no adenopathy; thyroid symmetric, normal size, no bruits. Lungs: Lungs clear to auscultation. No wheezing, rhonchi, rales.. Heart: RRR without murmur, gallop, or rubs. No ectopy. Health Maintenance List DTaP,Tdap,Td Vaccine(2 - Td or Tdap) due on 10/09/2017 Advance Directive Discussion due on 06/21/2023 Depression Assessment due on 06/21/2023 Annual PCP Team Chronic Disease Visit due on 02/17/2024 BP Controlled (<130/80) due on 02/17/2024 Diabetes Screening due on 08/16/2026 Bone Density Screening Completed Influenza Vaccine Completed RSV Vaccine Completed Hepatitis C Screening Completed Shingrix Vaccine Completed Covid-19 Vaccine Completed Pneumococcal Vaccine: 65+ Completed Mammogram Screening Discontinued Colorectal Cancer Screening Discontinued Data reviewed Appointment on 08/16/2023 Component Date Value Protein, Total 08/16/2023 6.3 Albumin 08/16/2023 3.9 Calcium, Total 08/16/2023 9.2 Bilirubin, Total 08/16/2023 0.2 Alkaline Phosphatase 08/16/2023 77 AST 08/16/2023 16 ALT 08/16/2023 9 Glucose 08/16/2023 110 (H) BUN 08/16/2023 17 Creatinine 08/16/2023 0.91 Sodium 08/16/2023 142 Potassium 08/16/2023 4.4 Chloride 08/16/2023 104 CO2 08/16/2023 27 Anion Gap 08/16/2023 11 Estimated Glomerular Duran* 08/16/2023 65 Cholesterol, Total 08/16/2023 218 (H) Triglyceride 08/16/2023 95 HDL Cholesterol 08/16/2023 65 Non HDL Cholesterol 08/16/2023 153 (H) Fasting Time 08/16/2023 13 VLDL Cholesterol 08/16/2023 19 TC:HDL Ratio 08/16/2023 3.35 LDL Cholesterol 08/16/2023 134 (H) LDL:HDL Ratio 08/16/2023 2.06 TSH 08/16/2023 1.650 ASSESSMENT/PLAN: 1. Essential hypertension, benign - ICD9: 401.1, ICD10: I10 (primary diagnosis) - Controlled - Continue current medications - Recommend home blood pressure monitoring, to bring results to next visit - Encouraged sodium restriction, DASH or Mediterranean diet - Recommend regular aerobic exercise - COMP METABOLIC PANEL - LIPID PANEL BASIC 2. Trigeminal neuralgia - ICD9: 350.1, ICD10: G50.0 - Okay to take over Lyrica 200 mg 1 tab po bid. - Will call when she needs refill 3. Hypothyroidism, unspecified type - ICD9: 244.9, ICD10: E03.9 - Instructed patient on importance of taking on an empty stomach either first thing in the morning or at bedtime. - check TSH in 6 months - TSH BLD 4. Hyperlipidemia, mixed - ICD9: 272.2, ICD10: E78.2 - Controlled - Counseled on healthy diet and regular exercise - COMP METABOLIC PANEL - LIPID PANEL BASIC 5. Elevated glucose - ICD9: 790.29, ICD10: R73.09 - Continue to monitor - Watch carbs - COMP METABOLIC PANEL - LIPID PANEL BASIC - HGB A1C 6. Bilateral leg edema - ICD9: 782.3, ICD10: R60.0 - Stable with lasix once daily - COMP METABOLIC PANEL 7. Unspecified sleep apnea - ICD9: 780.57, ICD10: G47.30 - Stable with CPAP 8. Dizziness - ICD9: 780.4, ICD10: R42 - Possibly related to diet and high carb breakfast. - Discussed reducing carb intake 6 mo f/u with labs. I agree with the Chief Complaint, ROS, and Past Histories independently gathered by the clinical direct support professional and the remaining scribed note accurately describes my personal service to the patient. Medical Decision Making: Problems: Moderate: 2+ stable chronic illnesses Data: Unique test result(s) reviewed: 3+ Unique test(s) ordered: 3+ Risk: Moderate: Drug management Medical Decision Making Level: 4 - Moderate Kenn Beauchamp MD The documentation for this note was completed by Yolanda Lau Ma acting as scribe for Kenn Beauchamp MD. August 26, 2023 11:28 AM. Yolanda Lau Ma documented in this encounterMem[facility]10[facility] Miscellaneous Notes* Telephone Encounter - Gary Odell APRN.CNP - 04/06/2023 9:48 AM EDT The following approved medication requests have been transmitted electronically. Requested Prescriptions Pending Prescriptions Disp Refills losartan (COZAAR) 100 mg tablet 90 tablet 3 Sig: Take 1 tablet by mouth once daily. Gary Odell APRN.CNP * Telephone Encounter - Catherine Shore - 04/06/2023 9:34 AM EDT Patient has been identified by name and date of : Yes Requested Prescriptions Pending Prescriptions Disp Refills losartan (COZAAR) 100 mg tablet 90 tablet 3 Sig: Take 1 tablet by mouth once daily. RX INSTRUCTIONS: Patient aware RX will be sent to pharmacy. No need to notify patient. Catherine Julien documented in this encounterMemorial [facility]08-29-[facility] History of Present illness Narrative* Kenn Beauchamp MD - 02/16/2023 11:00 AM EDT Chief Complaint Patient presents with: F/U 6 Month HPI Kate Oreilly is a 78 year old female who presents here today for 6 month follow up. Pt here today for her 6 month follow up. Reports today is decent. Had cholecystectomy at [facility] in August 2022. No bowel, Gi, or urinary issues. Uses colace prn constipation. HTN: Checking BP at home, has [employer] at home. Follows with [facility], Cardio. Was recently told not to f/u for 3 years. Taking Losartan 100 mg daily. No chest pains or SOB. Reports dizziness, unsure what the cause of this is, this is a chronic issue. Edema: linda legs; stable with Lasix 40 mg 1 pill once daily, supposed to use bid. Admits to not using compression stockings this summer as much, using compression leggings. Swelling improves over night. Does elevate when feet/legs burning. Lipid - Currently on no medication, controlling with diet and admits to no routine exercise. Hasn'teaten a lot of red meat since gallbladder surgery. Tries to walk when possible. Feels her cholesterol is always high, but this is genetic. Thyroid: Taking Synthroid 100 mcg daily. No missed dosages. SREEKANTH - Follows with Freedom Osman at [facility] for SOB/SREEKANTH. Admits she's not seen him in quite some time. Taking Singulair 10 mg daily. Wears CPAP nightly, sleeps well on average gets 8 hours of good sleep. Pain: Trigeminal neuralgia and chronic back pain; taking Lyrica 200 mg 2 caps po bid. Follows with Pain Management Dr. Yadav. Receiving injections that are not helping. Has received 7 injections, none of them have helped, the last one only lasting [address] Yadav's office has contacted us about getting a second opinion for surgical options for Trigeminal Neuralgia. She states that he discussed laser cutting the nerve and he was going to refer her. Attempted a procedure but was unable to complete this per patient, there wasn't a clear shot. Only thing that helps is if she lays on her left side but she can't do this all day. Pt notes that some days are worse then others generally with dizziness, blurred vision and clicking. This occurs more when she's looking down which she does a lot. States that balance is not very good. Dr. Yadav's last note from October recommended the [facility] at [facility]. Pt states he did give her a name but she's unable to recall who it was. [facility] can get a [facility] to be referred for a second opinion and update office. Pt was treated in August with Medrol anita for back pain. HM - Adv Dir/Living Will scanned into chart. Up-to-date on Covid vaccines. Denies feeling down, depressed or hopeless. Depression screening tool completed and reviewed. Based on score and interview, patient is not at risk for depression. Screening tool discussed with patient, and I recommended no further intervention at this time. Past medical history, appointments, medications, allergies reviewed. Previous Medical History PAST MEDICAL HISTORY Diagnosis Date Diverticulosis of colon (without mention of hemorrhage) Family history of malignant neoplasm of gastrointestinal tract Head injury 09/30 trip fall HTN (hypertension) Hypothyroidism Internal hemorrhoids without mention of complication SREEKANTH (obstructive sleep apnea) Other and unspecified hyperlipidemia Pneumonia 07/2011 Snoring Trigeminal neuralgia Previous Surgical History PAST SURGICAL HISTORY Procedure Laterality Date BIOPSY BREAST OPEN INCISIONAL Left LATE Bx of breast, incisional COLONOSCOPY FLX DX W/COLLJ SPEC WHEN PFRMD 03/12/08 COLONOSCOPY FLX DX W/COLLJ SPEC WHEN PFRMD 02/05/14 Colonoscopy COLONOSCOPY FLX DX W/COLLJ SPEC WHEN PFRMD 05/20/15 Colonoscopy COLONOSCOPY FLX DX W/COLLJ SPEC WHEN PFRMD 01/23/2019 Colonoscopy PAST SURGICAL HISTORY OF 09/03/2010 CRANIECTOMY EXCISON TUMOR, INFRATENTORIAL OR POST FOSSA, MENIGIOMA PAST SURGICAL HISTORY OF 05/06/2011 right [place]VD fro [place] PAST SURGICAL HISTORY OF 04/2019 Trigeminal neuralgia surgery. Brain leak in August 2019 TONSILLECTOMY PRIMARY/SECONDARY <AGE 12 A CHILD Tonsillectomy XCAPSL CTRC RMVL INSJ IO LENS PROSTH W/O ECP 2012 Cataract Extraction with PC IOL XCAPSL CTRC RMVL INSJ IO LENS PROSTH W/O ECP 2012 Cataract Extraction with PC IOL Family History FAMILY HISTORY Problem Relation Age of Onset Alzheimer's Disease Mother Heart Mother pacemaker Stroke Mother Heart Father VALVE REPLACEMENT,PACE MAKER Heart Sister Heart Brother Heart Brother Colon Cancer Sister Breast Cancer Sister Breast Cancer Daughter Patient Allergies ALLERGIES Allergen Reactions Amoxicillin Rash Carbamazepine Rash Codeine Vomiting Percocet [Oxycodone* Vomiting Tegretol [Carbamaze* Vomiting Dizziness, couldn't see straight Skin reaction when went in sun Tramadol Vomiting Vicodin [Hydrocodon* Vomiting Vioxx [Rofecoxib] Rash Demerol [Meperidine* Intolerance Neurontin [Gabapent* Intolerance Dizziness, feeling like I couldn't work Topamax [Topiramate] Intolerance Flushed, red skin Fentanyl GI Upset Current Medications Current Outpatient Medications on File Prior to Visit Medication Sig levothyroxine (SYNTHROID) 100 mcg tablet Take 1 tablet by mouth once daily. Take on empty stomach montelukast (SINGULAIR) 10 mg tablet Take 1 tablet by mouth daily at bedtime. potassium chloride 20 mEq TbER Take 20 mEq by mouth once daily. losartan (COZAAR) 100 mg tablet Take 1 tablet by mouth once daily. furosemide (LASIX) 40 mg tablet Take 1 tablet by mouth three times daily. Sennosides 25 mg tab Take 1 tablet by mouth daily at bedtime. multivitamin tablet Take 1 tablet by mouth once daily. pregabalin (LYRICA) 100 mg capsule Take 1 capsule by mouth four times daily for [address] Duncan. No current facility-administered medications on file prior to visit. Social History Social History Tobacco Use Smoking status: Never Smokeless tobacco: Never Vaping Use Vaping Use: Never used Substance Use Topics Alcohol use: No Drug use: No EXAM: BP 122/64 (BP Site: Left Arm, BP Position: Sitting, BP Cuff Size: Large Adult) Pulse 78 Resp 16 Wt 92.3 kg (203 lb 6.4 oz) LMP (LMP Unknown) BMI 31.86 kg/m General Appearance: Well appearing, alert, in no acute distress, well-hydrated, well nourished. andObese. Neck: Supple, no adenopathy; thyroid symmetric, normal size, no bruits. Lungs: Lungs clear to auscultation. No wheezing, rhonchi, rales.. Heart: RRR without murmur, gallop, or rubs. No ectopy. Health Maintenance List BP CONTROLLED (<130/80) Never done DTAP,TDAP,TD(2 - Td or Tdap) due on 10/09/2017 ADVANCE DIRECTIVE DISCUSSION due on 06/21/2022 DEPRESSION ASSESSMENT Never done COVID-19 VACCINE(6 - Pfizer series) due on 07/05/2022 INFLUENZA(1) due on 02/19/2023 ANNUAL PCP TEAM CHRONIC DISEASE VISIT due on 09/15/2023 DIABETES SCREEN due on 02/05/2025 BONE DENSITY Completed HEPATITIS C SCREENING Completed SHINGRIX VACCINE Completed PNEUMOCOCCAL: 65+ Completed MAMMOGRAM Discontinued COLORECTAL CANCER SCREENING Discontinued Data reviewed Appointment on 02/08/2023 Component Date Value Protein, Total 02/08/2023 6.3 Albumin 02/08/2023 4.0 Calcium, Total 02/08/2023 9.0 Bilirubin, Total 02/08/2023 0.3 Alkaline Phosphatase 02/08/2023 73 AST 02/08/2023 16 ALT 02/08/2023 15 Glucose 02/08/2023 102 (H) BUN 02/08/2023 12 Creatinine 02/08/2023 0.81 Sodium 02/08/2023 136 Potassium 02/08/2023 4.2 Chloride 02/08/2023 100 CO2 02/08/2023 24 Anion Gap 02/08/2023 12 Estimated Glomerular Duran* 02/08/2023 74 Cholesterol, Total 02/08/2023 211 (H) Triglyceride 02/08/2023 80 HDL Cholesterol 02/08/2023 64 Non HDL Cholesterol 02/08/2023 147 (H) Fasting Time 02/08/2023 12 VLDL Cholesterol 02/08/2023 16 TC:HDL Ratio 02/08/2023 3.30 LDL Cholesterol 02/08/2023 131 (H) LDL:HDL Ratio 02/08/2023 2.05 TSH 02/08/2023 1.610 ASSESSMENT/PLAN: 1. Essential hypertension, benign - ICD9: 401.1, ICD10: I10 (primary diagnosis) - Controlled - Continue current medications - Recommend home blood pressure monitoring, to bring results to next visit - Encouraged sodium restriction, DASH or Mediterranean diet - Recommend regular aerobic exercise - COMP METABOLIC PANEL - LIPID PANEL BASIC 2. Hypothyroidism, unspecified type - ICD9: 244.9, ICD10: E03.9 - Instructed patient on importance of taking on an empty stomach either first thing in the morning or at bedtime. - check TSH in 6 months Stable - Continue current medication regimen. - TSH BLD 3. Hyperlipidemia, mixed - ICD9: 272.2, ICD10: E78.2 - Controlled - Counseled on healthy diet and regular exercise - COMP METABOLIC PANEL - LIPID PANEL BASIC 4. Bilateral leg edema - ICD9: 782.3, ICD10: R60.0 - Stable - Continue current medication regimen. - FUROSEMIDE 40 MG TABLET - COMP METABOLIC PANEL 5. Spinal stenosis of lumbar region, unspecified whether neurogenic claudication present - ICD9: 724.02, ICD10: M48.061 - Cont f/u with Dr. Yadav - Continue current medication regimen. 6. Trigeminal neuralgia - ICD9: 350.1, ICD10: G50.0 - Continue current medication regimen. - PREGABALIN 200 MG CAPSULE 7. Dizziness - ICD9: 780.4, ICD10: R42 - Monitor 8. Unspecified sleep apnea - ICD9: 780.57, ICD10: G47.30 - Cont f/u with Pulmonary - Use CPAP 6 mo f/u with labs. I agree with the Chief Complaint, ROS, and Past Histories independently gathered by the clinical direct support professional and the remaining scribed note accurately describes my personal service to the patient. Medical Decision Making: Problems: Moderate: 2+ stable chronic illnesses Data: Unique test result(s) reviewed: 3+ Unique test(s) ordered: 3+ Risk: Moderate: Drug management Medical Decision Making Level: 4 - Moderate Kenn Beauchamp MD The documentation for this note was completed by Yolanda Lau Ma acting as scribe for Kenn Beauchamp MD. February 16, 2023 11:15 AM. Yolanda Lau Ma documented in this encounterMem[facility]23 Miscellaneous Notes* Telephone Encounter - Gary Odell APRN.CNP - 2023 8:58 AM EDT The following approved medication requests have been transmitted electronically. Requested Prescriptions Pending Prescriptions Disp Refills levothyroxine (SYNTHROID) 100 mcg tablet 90 tablet 3 Sig: Take 1 tablet by mouth once daily. Take on empty stomach Gary Odell APRN.CNP * Telephone Encounter - Caty Banda LPN - 2023 8:49 AM EDT Patient phones requesting refills as follows: Requested Prescriptions Pending Prescriptions Disp Refills levothyroxine (SYNTHROID) 100 mcg tablet 90 tablet 3 Sig: Take 1 tablet by mouth once daily. Take on empty stomach JEMAL-09/14/22 Labs-08/13/22Apr-02/16/23 Please review and advise. Caty Banda LPN documented in this encounterMem[facility]04-03-2023 Miscellaneous Notes* Telephone Encounter - Gary Odell APRN.CNP - 09/21/2022 9:12 AM EDT The following approved medication requests have been transmitted electronically. Requested Prescriptions Pending Prescriptions Disp Refills montelukast (SINGULAIR) 10 mg tablet 90 tablet 3 Sig: Take 1 tablet by mouth daily at bedtime. Gary Odell APRN.[place] * Telephone Encounter - Chelo Rivera - 09/21/2022 9:01 AM EDT Patient has been identified by name and date of : Yes Requested Prescriptions Pending Prescriptions Disp Refills montelukast (SINGULAIR) 10 mg tablet 90 tablet 3 Sig: Take 1 tablet by mouth daily at bedtime. JEMAL-09/14/22 Labs-05/21/22Apr-02/16/23 med filled 07/31/21 RX INSTRUCTIONS: Patient aware RX will be sent to pharmacy. No need to notify patient. Chelo Rivera documented in this encounterMemorial [facility]03-27-[facility]23 History of Present illness Narrative* Kenn Beauchamp MD - 09/14/2022 3:40 PM EDT Chief Complaint Patient presents with: Pain HPI Kate Oreilly is a 77 year old female who presents here today for an acute visit. Here with her daughter in law, Geeta Oreilly. Pt here today for right sided sciatica and fall. Pt has chronic back pain and trigeminal neuralgia. Follows with Dr. Yadav who gives her injections. Pt has hx of spinal stenosis. She's currently taking Lyrica 100 mg TID which is prescribed by Dr. Yadav.Pt is having weakness and fell down basement steps. Pain down the right leg into the calf, sharp shooting pain, started yesterday afternoon. No numbness in the leg. The pain does not go down into the toes. Unsure what caused the pain to flare up or triggered it. She did lay in a hospital bed for sometime recently. Has linda leg weakness but right leg is worse. When she sits she feels a pulling sensation in the back and when she walks she has to take baby steps with the right leg so it doesn't cause pain and give out. She uses walker and cane at home, has stair rails. She took a fall a fewdays ago down the basement stairs, she stated her leg gave out and she was able to just sit down onthe stairs, the hand rail saved her from going all the way down the stairs. Had to use her smart watch to contact her family members to come and get her and they helped support her up the stairs. Shewas taking some left over [place] from Dr Yadav for her pain. She taken [place] today but has not taken any extra Lyrica today. She tried ice pack but hard to tell where the pain is as it seems to be inother parts of the legs. She has not been able to do much stretching of the leg other than lifting the leg but is only able to lift so far without having pain. Dr. Yadav prescribed the [place] that she had left over and the Lyrica she takes regularly. She states that the [place] makes her a little dizzy. She has been trying to avoid sitting, has been mostly laying down and walking when able. Past medical history, appointments, medications, allergies reviewed. Previous Medical History PAST MEDICAL HISTORY Diagnosis Date Diverticulosis of colon (without mention of hemorrhage) Family history of malignant neoplasm of gastrointestinal tract Head injury 09/30 trip fall HTN (hypertension) Hypothyroidism Internal hemorrhoids without mention of complication SREEKANTH (obstructive sleep apnea) Other and unspecified hyperlipidemia Pneumonia 07/2011 Snoring Trigeminal neuralgia Previous Surgical History PAST SURGICAL HISTORY Procedure Laterality Date BIOPSY BREAST OPEN INCISIONAL Left LATE Bx of breast, incisional COLONOSCOPY FLX DX W/COLLJ SPEC WHEN PFRMD 03/12/08 COLONOSCOPY FLX DX W/COLLJ SPEC WHEN PFRMD 02/05/14 Colonoscopy COLONOSCOPY FLX DX W/COLLJ SPEC WHEN PFRMD 05/20/15 Colonoscopy COLONOSCOPY FLX DX W/COLLJ SPEC WHEN PFRMD 01/23/2019 Colonoscopy PAST SURGICAL HISTORY OF 09/03/2010 CRANIECTOMY EXCISON TUMOR, INFRATENTORIAL OR POST FOSSA, MENIGIOMA PAST SURGICAL HISTORY OF 05/06/2011 right MVD fro [place] PAST SURGICAL HISTORY OF 04/2019 Trigeminal neuralgia surgery. Brain leak in August 2019 TONSILLECTOMY PRIMARY/SECONDARY <AGE 12 A CHILD Tonsillectomy XCAPSL CTRC RMVL INSJ IO LENS PROSTH W/O ECP 2012 Cataract Extraction with PC IOL XCAPSL CTRC RMVL INSJ IO LENS PROSTH W/O ECP 2012 Cataract Extraction with PC IOL Family History FAMILY HISTORY Problem Relation Age of Onset Alzheimer's Disease Mother Heart Mother pacemaker Stroke Mother Heart Father VALVE REPLACEMENT,PACE MAKER Heart Sister Heart Brother Heart Brother Colon Cancer Sister Breast Cancer Sister Breast Cancer Daughter Patient Allergies ALLERGIES Allergen Reactions Amoxicillin Rash Carbamazepine Rash Codeine Vomiting Percocet [Oxycodone* Vomiting Tegretol [Carbamaze* Vomiting Dizziness, couldn't see straight Skin reaction when went in sun Tramadol Vomiting Vicodin [Hydrocodon* Vomiting Vioxx [Rofecoxib] Rash Demerol [Meperidine* Intolerance Neurontin [Gabapent* Intolerance Dizziness, feeling like I couldn't work Topamax [Topiramate] Intolerance Flushed, red skin Fentanyl GI Upset Current Medications Current Outpatient Medications on File Prior to Visit Medication Sig losartan (COZAAR) 100 mg tablet Take 1 tablet by mouth once daily. levothyroxine (SYNTHROID) 100 mcg tablet Take 1 tablet by mouth once daily. Take on empty stomach furosemide (LASIX) 40 mg tablet Take 1 tablet by mouth three times daily. Sennosides 25 mg tab Take 1 tablet by mouth daily at bedtime. montelukast (SINGULAIR) 10 mg tablet Take 1 tablet by mouth daily at bedtime. multivitamin tablet Take 1 tablet by mouth once daily. pregabalin (LYRICA) 100 mg capsule Take 1 capsule by mouth four times daily for [address] Duncan. No current facility-administered medications on file prior to visit. Social History Social History Tobacco Use Smoking status: Never Smokeless tobacco: Never Vaping Use Vaping Use: Never used Substance Use Topics Alcohol use: No Drug use: No EXAM: BP 140/82 Pulse 88 Resp 16 Wt 95.3 kg (210 lb) LMP (LMP Unknown) BMI 32.89 kg/m General Appearance: Well appearing, alert, in no acute distress, well-hydrated, well nourished. andOverweight. Back: pain on palpation to right lower back, pain worsens with movement of right leg, no weakness noted of right leg Lungs: Lungs clear to auscultation. No wheezing, rhonchi, rales.. Heart: RRR without murmur, gallop, or rubs. No ectopy. Extremities: right leg; limited ROM, pain on palpation. Health Maintenance List DTAP,TDAP,TD(2 - Td or Tdap) due on 10/09/2017 ADVANCE DIRECTIVE DISCUSSION due on 06/21/2022 DEPRESSION ASSESSMENT Never done ANNUAL PCP TEAM CHRONIC DISEASE VISIT due on 08/13/2023 BP CONTROLLED (<130/80) due on 08/13/2023 DIABETES SCREEN due on 02/05/2025 BONE DENSITY Completed INFLUENZA Completed HEPATITIS C SCREENING Completed SHINGRIX VACCINE Completed COVID-19 VACCINE Completed PNEUMOCOCCAL: 65+ Completed Data reviewed None ASSESSMENT/PLAN: 1. Chronic right-sided low back pain without sciatica - ICD9: 724.2, 338.29, ICD10: M54.50, G89.29 Start Medrol Dose Anita Recommend alternating heat and ice Contact Dr. Yadav's office for pain medications May try taking Ibuprofen Follow up as needed. I agree with the Chief Complaint, ROS, and Past Histories independently gathered by the clinical direct support professional and the remaining scribed note accurately describes my personal service to the patient. Medical Decision Making: Problems: Moderate: 1+ chronic illnesses with change Risk: Moderate: Drug management Medical Decision Making Level: 4 - Moderate Kenn Beauchamp MD The documentation for this note was completed by Lupe Sapp Ma acting as scribe for Kenn Beauchamp MD. September 14, 2022 3:29 PM. Lupe Sapp Ma documented in this encounterMem[facility]03-21-2023 History of Present illness Narrative* Ryanne Castanoanastasia MOHAN - 09/08/2022 1:45 PM EDT Pt reports she is going to follow up with the surgeon and not pcp at this time. Ryanne Paulino LPN * Yolanda Lau Neo - 09/07/2022 1:53 PM EDT TRANSITION CARE MANAGEMENT (TCM) INITIAL CONTACT Audit Mgr Outreach Provider Action/FYI: Call to pt, LM on VM to return call to office. Calling to follow up with pt in regards to her recent [facility] d/c and how she's feeling. Pt to schedule with Dr. Fernando Jean-Baptiste in 2 weeks. Pt to call and schedule at P#: [phone]. Suggested to f/u with PCP in 2 weeks but okay to f/u with Dr. Jean-Baptiste as noted on d/c. Called and LM on VM to return call to office and speak with Triage Nurse regarding recent admission. If pt does not want to schedule and see Dr. Jean-Baptiste this is fine. Please route to PCP. If pt wants to schedule f/u please review questions below and schedule for TCM 14 day (40 minutes). Initial contact with patient post discharge, spoke to patient. Patient identified by name and . TRANSITION CARE MANAGEMENT INITIAL OUTREACH DOCUMENTATION: No flowsheet data found. SUMMARY: -Pt discharged from [facility] on 09/05/22. -Admitted for: Discharge Diagnosis (1) Acute biliary pancreatitis: Status: Acute Code(s): K85.10 - Biliary acute pancreatitis without necrosis or infection Plan: Acute gallstone pancreatitis -Gallbladder ultrasound demonstrated multiple gallstones and gallbladder distention to 10.4 cm withno increased wall thickness or pericholecystic fluid but has elevated bili as well as liver function tests and a lipase of 23,197 -CT of the abdomen with acute interstitial edematous pancreatitis 09/01: Patient underwent a laparoscopic cholecystectomy with intraoperative cholangiogram. Was having a fever overnight and started on meropenem, which has subsequent been discontinued. Advance diet per general surgery. Now on regular diet. (2) Transaminitis: Status: Acute Code(s): R74.01 - Elevation of levels of liver transaminase levels Plan: Improving. Most likely secondary to choledocholithiasis. Acute hepatitis profile negative Antimitochondrial antibody and anti-smooth muscle antibody less than 20 and 3, respectively. These results are within normal limits. (3) Hypokalemia: Status: Acute Code(s): E87.6 - Hypokalemia Plan: Replace magnesium 1.8. Will replace. Plan Chronic conditions: ? Hypothyroidism-Continue Synthroid daily ? SREEKANTH-CPAP nightly ? Group 3 pulmonary hypertension-Last echo demonstrated EF of 65% with RVSP estimated to be 40 mmHg-Follows with Dr. Stroud as an outpatient-Lasix has been resumed DVT ppx: Lovenox subq Hospital Course: 77-year-old female presents with abdominal pain. Patient was found to have acute pancreatitis as well as transaminitis. This is secondary to choledocholithiasis. Patient underwent a cholecystectomy by Dr. Jean-Baptiste. Patient did have cholangiograms that were unremarkable. Patient slow recovery regards to getting final bowel function but overall improved is tolerating diet. Patient be discharged and tocontinue with follow-up with general surgery as outpatient. Records copied and pasted for continuity of care. Do you have a hospital follow up appointment with your PCP? Pt declined appt at this time MEDICATIONS: Many patients have questions or concerns about their medications once they are home. Were you prescribed any new medications? N/A Were you told to hold any medications? N/A Were any of your medications discontinued? N/A Do you have any questions about getting or taking your medications? N/A Your discharge instructions/After visit Summary (AVS) are important in guiding you through the recovery process. Is there anything I might help you understand? N/A Do you have all the necessary equipment and supplies at home? N/A Medical records from recent hospitalization: [facility]. Yolanda Lau Ma documented in this encounterMemorial [facility]03-18-[address] Coffman [facility] September 05, 2022 12:08pm Note Date/Time September 05, 2022 12: 04pm [facility] Medical Records Department [address] [place] [address] Discharge Summary 09/05/22 1202 MR#: [id number] Acct: [id number] Name: KATE OREILLY Rep #:[id number] : 1945 77 From: Tyler Coffman DO PCP: Kenn Beauchamp MD Status:ADM IN Location: [facility] [id number] Providers Date of Admission: 08/30/22 Primary Care Physician: Kenn Beauchamp MD Consultations 08/30/22 21:02 Consult: Gastroenterology Routine Consulting Provider: [facility] Reason for Consult: acute gallstone pancreatitis EMERGENT Consult: No Notified: Yes Date Notified: 08/30/22 Time Notified: 21:02 Method of Notification: ED Physician Initiated Consult: General Surgery Routine Consulting Provider: Fernando Jean-Baptiste Reason for Consult: acute gallstone pancreatitis EMERGENT Consult: No Notified: Yes Date Notified: 08/30/22 Time Notified: 21:02 Method of Notification: ED Physician Initiated Reason For Visit: ACUTE PANCREATITIS Diagnosis Discharge Diagnosis (1) Acute biliary pancreatitis: Status: Acute Code(s): K85.10 - Biliary acute pancreatitis without necrosis or infection Plan: Acute gallstone pancreatitis -Gallbladder ultrasound demonstrated multiple gallstones and gallbladder distention to 10.4 cm with no increased wall thickness or pericholecystic fluid but has elevated bili as well as liver function tests and a lipase of 23,197 -CT of the abdomen with acute interstitial edematous pancreatitis 09/01: Patient underwent a laparoscopic cholecystectomy with intraoperative cholangiogram. Was having a fever overnight and started on meropenem, which has subsequent beendiscontinued. Advance diet per general surgery. Now on regular diet. (2) Transaminitis: Status: Acute Code(s): R74.01 - Elevation of levels of liver transaminase levels Plan: Improving. Most likely secondary to choledocholithiasis. Acute hepatitis profile negative Antimitochondrial antibody and anti-smooth muscle antibody less than 20 and 3, respectively. These results are within normal limits. (3) Hypokalemia: Status: Acute Code(s): E87.6 - Hypokalemia Plan: Replace magnesium 1.8. Will replace. Plan Chronic conditions: * Hypothyroidism-Continue Synthroid daily * SREEKANTH-CPAP nightly * Group 3 pulmonary hypertension-Last echo demonstrated EF of 65% with RVSP estimated to be 40 mmHg-Follows with Dr. Stroud as an outpatient-Lasix has been resumed DVT ppx: Lovenox subq Medications at Discharge Home Medications pregabalin 100 mg capsule (Lyrica) 100 mg PO TID 05/12/21 montelukast 10 mg tablet (Singulair) 10 mg PO QHS 08/13/21 multivitamin (Daily Multi-Vitamin tablet) 1 tab PO DAILY 08/13/21 furosemide 40 mg tablet (Lasix) 40 mg PO BID 11/11/21 levothyroxine 100 mcg tablet 100 mcg PO DAILY 11/11/21 losartan 100 mg tablet 100 mg PO DAILY #90 tabs 03/30/22 potassium chloride 20 mEq tablet,extended release 20 meq PO DAILY #30 tabs 09/05/22 Hospital Course Operations cholecystecomy Summary of Care Provided Minutes Spent on Discharge: 28 Hospital Course: 77-year-old female presents with abdominal pain. Patient was found to have acute pancreatitis as well as transaminitis. This is secondary to choledocholithiasis. Patient underwent a cholecystectomy by Dr. Jean-Baptiste. Patientdid have cholangiograms that were unremarkable. Patient slow recovery regards to getting final bowel function but overall improved is tolerating diet. Patient be discharged and to continue with follow-up with general surgery as outpatient. Weight / BMI Weight Weight: 103.2 kg Body Mass Index (BMI) 35.6 ABG / Lab / Microbiology Data Result Diagrams: 09/04/22 04:48 09/05/22 08:21 Laboratory: Laboratory Results - last 24 hr 09/05/22 08:21: Sodium 144, Potassium 3.3 L, Chloride 111 H, Carbon Dioxide 24.0, Anion Gap 9, BUN 8, Creatinine 0.62, Estim Creat Clear Calc 45.82, Est GFR(MDRD) Af Amer 119, Est GFR (MDRD) Non-Af 99, BUN/Creatinine Ratio 12.9, [id number] H, Calcium 8.0 L, Total Bilirubin 0.60, AST 18, ALT 63 H, Alkaline Phosphatase 75, Total Protein 6.0 L, Albumin 2.3 L, Globulin 3.7, Albumin/Globulin Ratio 0.6 L Microbiology: Microbiology 08/31/22 23:09 Blood Culture (Wb) - Right Wrist Blood Culture - Preliminary No growth in 48 hours. 08/31/22 23:00 Blood Culture (Wb) - Right Forearm Blood Culture - Preliminary No growth in 48 hours. D/C Instructions Discharge Diet: Light diet - advance as tolerated Call your doctor if your incision/area has: Continuous Slow Oozing, Sudden Increased Bleeding, Increased Pain/ Swelling, Increased Redness, Foul Smelling Discharge and Swelling at the incision site Call your doctor if you observe: Fever of 101 or Higher Cleanse incision/area with: Soap & Water Please Follow Up With: Fernando Jean-Baptiste MD When: Please call to schedule 2 week follow up appointment. [phone] Meaningful Use Info Meaningful Use Diagnoses (Choose all that apply): None applicable Discharge Plan Admission Admit Date/Time: 08/30/22 20:41 Primary Reason for Your Visit: pancreatatitis Attending Provider: Tyler Coffman Primary Care Provider: Kenn Beauchamp Consulting Providers: Fernando Jean-Baptiste ; Ella Hinojosa Discharge Orders/Prescriptions Prescriptions: New potassium chloride 20 mEq tablet extended release 20 meq PO DAILY Qty: 30 0RF Continued pregabalin [Lyrica] 100 mg capsule 100 mg PO TID furosemide [Lasix] 40 mg tablet 40 mg PO BID Rx Instructions: Per patient, takes an extra dose as needed. multivitamin [Daily Multi-Vitamin] Tablet 1 tab PO DAILY montelukast [Singulair] 10 mg tablet 10 mg PO QHS levothyroxine 100 mcg tablet 100 mcg PO DAILY losartan 100 mg tablet 100 mg PO DAILY Qty: 90 3RF Referrals / Follow Up: Fernando Jean-Baptiste MD [Med Staff - Active Staff] - Within 2 Weeks Kenn Beauchamp MD [Primary Care Provider] - Within 2 Weeks Disposition Disposition (needs filled in before D/C Order can be placed): Home, Self Care 09/05/22 1208 <Electronically signed by Tyler Coffman DO> Cosigner Signature (if applicable): CC: Dr. Tyler Coffman DO; Kenn Beauchamp MD~ Signed [facility] Work Phone: [phone] [phone] 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 No new events. Objective Data Objective Data Vital Signs: Vital Signs Temp Pulse Resp BP Pulse Ox O2 Del Method O2 Flow Rate 37.2 C 83 16 125/60 H 96 Room Air 2 09/05/22 05:10 09/05/22 05:10 09/05/22 05:10 09/05/22 05:10 09/05/22 05:10 09/05/22 05:10 09/01/22 18:15 Oxygen Flow Rate (L/min) 2 Oxygen Delivery Method Room Air Weight: 103.2 kg Body Mass Index (BMI) 35.6 Intake & Output: Intake and Output for Last 24 Hours 09/03/22 09/04/22 09/05/22 23:59 23:59 23:59 Intake Total 2320.0 / 2320.0 504 / 504 Output Total 1550 / 1750 1100 / 1100 Balance 2320.0 / 2320.0 -1046 / -1246 -1100 / -1100 Lab / Micro Data Result Diagrams: 09/04/22 04:48 09/05/22 08:21 Labs: Laboratory Results - last 24 hr 09/04/22 04:48: Magnesium 1.8 Micro: Microbiology 08/31/22 23:09 Blood Culture (Wb) - Right Wrist Blood Culture - Preliminary No growth in 48 hours. 08/31/22 23:00 Blood Culture (Wb) - Right Forearm Blood Culture - Preliminary No growth in 48 hours. Physical Exam Const alert and no apparent distress Resp normal respiratory effort, no retractions and no use of accessory muscles Cardio regular rate, regular rhythm, S1 normal heart sound and S2 normal heart sound GI normal to inspection, nondistended, normoactive bowel sounds, soft to palpation,non-tender and non-distended Assessment & Plan Assessment/Plan (1) Acute biliary pancreatitis: PLAN: Acute gallstone pancreatitis -Gallbladder ultrasound demonstrated multiple gallstones and gallbladder distention to 10.4 cm with no increased wall thickness or pericholecystic fluid but has elevated bili as well as liver function tests and a lipase of 23,197 -CT of the abdomen with acute interstitial edematous pancreatitis 09/01: Patient underwent a laparoscopic cholecystectomy with intraoperative cholangiogram. Was having a fever overnight and started on meropenem, which has subsequent beendiscontinued. Advance diet per general surgery. Now on regular diet. (2) Transaminitis: PLAN: Improving. Most likely secondary to choledocholithiasis. Acute hepatitis profile negative Antimitochondrial antibody and anti-smooth muscle antibody less than 20 and 3, respectively. These results are within normal limits. (3) Hypokalemia: PLAN: Replace magnesium 1.8. Will replace. PLAN: Plan Chronic conditions: * Hypothyroidism-Continue Synthroid daily * SREEKANTH-CPAP nightly * Group 3 pulmonary hypertension-Last echo demonstrated EF of 65% with RVSP estimated to be 40 mmHg-Follows with Dr. Stroud as an outpatient-Lasix has been resumed DVT ppx: Lovenox subq Charges/Coding Visit Charges Inpatient E&M: 99518 Subs Hosp L2 09/05/22 1201 <Electronically signed by Tyler Coffman DO> Cosigner Signature (if applicable): CC: ~ Signed [facility] Work Phone: 1(940) 924-610303-18-2023 Progress note Author Robinson Mendenhall [facility] September 05, 2022 3:48pm Note Date/Time September 05, 2022 3:4 8pm [facility] Medical Records Department [address] [place] [address] Progress Note 09/05/22 1200 MR#: [id number] Acct: [id number] Name: KATE OREILLY Rep #:[id number] : 1945 77 From: Robinson Mendenhall DO PCP: Nito KING,Kenn Status:ADM IN Location: [facility] [id number] Subjective Subjective Patient continues to do well without any abdominal pain. She states that she would like to go home today. Her legs also improved and regarding strength and swelling. Objective Data Objective Data Vital Signs: Vital Signs Temp Pulse Resp BP Pulse Ox O2 Del Method O2 Flow Rate 97.9 F 96 18 142/67 H 16 Room Air 2 09/05/22 15:35 09/05/22 15:35 09/05/22 15:35 09/05/22 15:35 09/05/22 15:35 09/05/22 15:35 09/01/22 18:15 Oxygen Flow Rate (L/min) 2 Oxygen Delivery Method Room Air Weight: 227 lb 8.273 oz Body Mass Index (BMI) 35.6 Intake & Output: Intake and Output for Last 24 Hours 09/03/22 09/04/22 09/05/22 23:59 23:59 23:59 Intake Total 2320.0 / 2320.0 504 / 504 Output Total 1550 / 1750 1100 / 1100 Balance 2320.0 / 2320.0 -1046 / -1246 -1100 / -1100 Lab / Micro Data Result Diagrams: 09/04/22 04:48 09/05/22 08:21 Labs: Laboratory Results - last 24 hr 09/05/22 08:21: Sodium 144, Potassium 3.3 L, Chloride 111 H, Carbon Dioxide 24.0, Anion Gap 9, BUN 8, Creatinine 0.62, Estim Creat Clear Calc 45.82, Est GFR(MDRD) Af Amer 119, Est GFR (MDRD) Non-Af 99, BUN/Creatinine Ratio 12.9, [id number] H, Calcium 8.0 L, Total Bilirubin 0.60, AST 18, ALT 63 H, Alkaline Phosphatase 75, Total Protein 6.0 L, Albumin 2.3 L, Globulin 3.7, Albumin/Globulin Ratio 0.6 L Micro: Microbiology 08/31/22 23:09 Blood Culture (Wb) - Right Wrist Blood Culture - Preliminary No growth in 48 hours. 08/31/22 23:00 Blood Culture (Wb) - Right Forearm Blood Culture - Preliminary No growth in 48 hours. Physical Exam Const oriented x3 Resp normal respiratory effort GI soft to palpation Assessment & Plan Assessment/Plan (1) Acute biliary pancreatitis: PLAN: Patient has not shown any sequela of pancreatitis at this time. However her CA 19-9 is elevated at 45. This could be secondary to acute pancreatitis however we should repeat the CA 19-9 in approximately 2 months and have a repeatCT scan with pancreatic protocol. If it is still elevated then she will need anendoscopic ultrasound or possible ERCP with biopsy. I will not send an IgG4 to look for type I autoimmune pancreatitis because this was likely secondary to biliary obstruction. Patient is doing well from a GI standpoint. I would recommend Protonix 40 mg once a day., Stool softener with Colace 100 mg p.o. daily she does not seem to be experiencing any signs of ileus secondary to recent pancreatitis or gastroparesis secondary to pancreatitis as her appetite is improving. (2) Cholelithiasis: PLAN: Status postcholecystectomy today without any problems. Cholangiogram did not show any abnormalities or filling defects in the distal common bile duct. Recommendations as per surgery Charges/Coding Visit Charges Inpatient E&M: 82921 Subs Hosp L2 09/05/22 1548 <Electronically signed by Robinson Mendenhall DO> Robinson Mendenhall DO Cosigner Signature (if applicable): CC: ~ Signed [facility] Work Phone: 1(580) [phone] Palmer [facility] September 05, 2022 8:30am Note Date/Time September 05, 2022 8:3 0am [facility] Medical Records Department [address] [place] [address] Instructions for Home/Discharge Instructions 09/05/22 0829 MR#: [id number] Acct: [id number] Name: KATE OREILLY Rep #:[id number] : 1945 77 From: Harvinder castrejon MD PCP: Nito KING,Kenn Status:ADM IN Discharge Instructions Diet Discharge Diet: Light diet - advance as tolerated Activity Discharge Activity: May Drive and May Shower Lifting Restrictions: 15 lbs for 2 weeks Dressing / Incision Call your doctor if your incision/area has: Continuous Slow Oozing, Sudden Increased Bleeding, Increased Pain/ Swelling, Increased Redness, Foul Smelling Discharge and Swelling at the incision site Call your doctor if you observe: Fever of 101 or Higher Change Dressing in: 2 days (Remove clear bandages in 2 days, remove steri stripsin 10 days) Cleanse incision/area with: Soap & Water Follow Up Care Please Follow Up With: Fernando Jean-Baptiste MD When: Please call to schedule 2 week follow up appointment. [phone] Test Results: Test results from this visit will be discussed in further detail at your follow- up appointment, if applicable. Discharge Plan Admission Admit Date/Time: 08/30/22 20:41 Attending Provider: Tyler Coffman Primary Care Provider: Kenn Beauchamp Consulting Providers: Fernando Jean-Baptiste ; Ella Hinojosa Discharge Orders/Prescriptions Prescriptions: No Action pregabalin [Lyrica] 100 mg capsule 100 mg PO TID furosemide [Lasix] 40 mg tablet 40 mg PO BID Rx Instructions: Per patient, takes an extra dose as needed. multivitamin [Daily Multi-Vitamin] Tablet 1 tab PO DAILY montelukast [Singulair] 10 mg tablet 10 mg PO QHS levothyroxine 100 mcg tablet 100 mcg PO DAILY losartan 100 mg tablet 100 mg PO DAILY Qty: 90 3RF Referrals / Follow Up: Kenn Beauchamp MD [Primary Care Provider] - 09/05/22 08<Electronically signed by Harvinder Palmer MD>Harvinder Palmer MD CC: Dr. Fernando Jean-Baptiste MD; Dr. Ella Hinojosa MD; Kenn Beauchamp MD ~ Signed [facility] Work Phone: 1(978) 347-198803-18-[address] Palmer [facility] September 05, 2022 8:28am Note Date/Time September 05, 2022 8:2 8am [facility] Medical Records Department [address] [place] [address] Progress Note - Surgery 09/05/22826 MR#: [id number] Acct: [id number] Name: KATE OREILLY Rep #:[id number] : 1945 77 From: Harvinder castrejon MD PCP: Kenn Beauchamp MD Status:ADM IN Location: [place] [address] Subjective Subjective Patient reports feeling well with no nausea or vomiting. Abdominal pain is wellcontrolled. She says the swelling in her legs is decreased greatly. Objective Data Objective Data Vital Signs: Vital Signs Temp Pulse Resp BP Pulse Ox O2 Del Method O2 Flow Rate 98.9 F 83 16 125/60 H 96 Room Air 2 09/05/22 05:10 09/05/22 05:10 09/05/22 05:10 09/05/22 05:10 09/05/22 05:10 09/05/22 05:10 09/01/22 18:15 Oxygen Flow Rate (L/min) 2 Oxygen Delivery Method Room Air Weight: 227 lb 8.273 oz Body Mass Index (BMI) 35.6 Intake & Output: Intake and Output for Last 24 Hours 09/03/22 09/04/22 09/05/22 23:59 23:59 23:59 Intake Total 2320.0 / 2320.0 504 / 504 Output Total 1550 / 1750 1100 / 1100 Balance 2320.0 / 2320.0 -1046 / -1246 -1100 / -1100 Lab / Micro Data Result Diagrams: 09/04/22 04:48 09/04/22 04:48 Labs: Laboratory Results - last 24 hr 09/04/22 04:48: Magnesium 1.8 Micro: Microbiology 08/31/22 23:09 Blood Culture (Wb) - Right Wrist Blood Culture - Preliminary No growth in 48 hours. 08/31/22 23:00 Blood Culture (Wb) - Right Forearm Blood Culture - Preliminary No growth in 48 hours. Physical Exam Const oriented x3 Resp normal respiratory effort GI soft to palpation Assessment & Plan Assessment/Plan (1) Status post cholecystectomy: PLAN: Patient seems to be doing well. Her legs are less swollen and she says she is diuresing plenty. She is going to try regular diet this morning. If shetolerates diet from my standpoint she can be discharged home. She should follow-up with Dr. Jean-Baptiste in 2 weeks. She should not lift anything over 15 pounds and she may shower starting today. Harvinder Palmer MD Pager: [facility] [address] [place] [address], [address] [place] [address] Office: 09/05/22 5084 <Electronically signed by Harvinder Palmer MD> Cosigner Signature (if applicable): CC: ~ Signed [facility] Work Phone: 1(202) 388-143003-17-2023 Progress note Author Robinson Friend [facility] September 04, 2022 6:42pm Note Date/Time September 04, 2022 6:4 2pm [facility] Medical Records Department [address] [place] [address] Progress Note 09/04/22 1839 MR#: [id number] Acct: [id number] Name: KATE OREILLY Rep #:[id number] : 1945 77 From: Robinson Mendenhall DO PCP: Nito KING,Kenn Status:ADM IN [facility] Subjective Subjective Patient states that she is getting her injury back a little bit. She denies anyabdominal pain with eating. She denies any nausea. Objective Data Objective Data Vital Signs: Vital Signs Temp Pulse Resp BP Pulse Ox O2 Del Method O2 Flow Rate 98.3 F 84 18 132/58 H 99 Room Air 2 09/04/22 14:20 09/04/22 14:20 09/04/22 14:20 09/04/22 14:20 09/04/22 17:20 09/04/22 17:20 09/01/22 18:15 Oxygen Flow Rate (L/min) 2 Oxygen Delivery Method Room Air Weight: 229 lb 1.6 oz Body Mass Index (BMI) 35.9 Intake & Output: Intake and Output for Last 24 Hours 09/02/22 09/03/22 09/04/22 23:59 23:59 23:59 Intake Total 2888 / 2888 2320.0 / 2320.0 504 / 504 Output Total 1550 / 1550 Balance 2888 / 2888 2320.0 / 2320.0 -1046 / -1046 Lab / Micro Data Result Diagrams: 09/04/22 04:48 09/04/22 04:48 Labs: Laboratory Results - last 24 hr 09/04/22 04:48: WBC 7.1, RBC 3.57 L, Hgb 10.2 L, Hct 32.8 L, MCV 91.9, MCH 28.6,MCHC 31.1 L, RDW Std Deviation 48.1 H, RDW Coeff of Rajinder 14.3, Plt Count 171, MPV11.9, Immature Gran % (Auto) 0.400, Neut % (Auto) 59.5, Lymph % (Auto) 30.9, [place] % (Auto) 7.7, Eos % (Auto) 1.1, Baso % (Auto) 0.4, Absolute Neuts (auto) 4.2, Absolute Lymphs (auto) 2.18, Nucleated RBC % 0 09/04/22 04:48: Sodium 145, Potassium 2.9 L, Chloride 115 H, Carbon Dioxide 23.0, Anion Gap 7, BUN 9, Creatinine 0.62, Estim Creat Clear Calc 45.82, Est GFR(MDRD) Af Amer 121, Est GFR (MDRD) Non-Af 100, BUN/Creatinine Ratio 14.6, Glucose 97, Calcium 7.6 L, Total Bilirubin 0.60, AST 17, ALT 72 H, Alkaline Phosphatase 69, Total Protein 5.0 L, Albumin 2.0 L, Globulin 3.0, Albumin/Globulin Ratio 0.7 L 09/04/22 04:48: Magnesium 1.8 Micro: Microbiology 08/31/22 23:09 Blood Culture (Wb) - Right Wrist Blood Culture - Preliminary No growth in 48 hours. 08/31/22 23:00 Blood Culture (Wb) - Right Forearm Blood Culture - Preliminary No growth in 48 hours. Physical Exam Const oriented x3 and no apparent distress Resp normal respiratory effort GI GI Narrative: Abdomen is soft and nontender to palpation?including in the epigastrium. Assessment & Plan Assessment/Plan (1) Acute biliary pancreatitis: PLAN: Patient has not shown any sequela of pancreatitis at this time. However her CA 19-9 is elevated at 45. This could be secondary to acute pancreatitis however we should repeat the CA 19-9 in approximately 2 months and have a repeatCT scan with pancreatic protocol. If it is still elevated then she will need anendoscopic ultrasound or possible ERCP with biopsy. I will not send an IgG4 to look for type I autoimmune pancreatitis because this was likely secondary to biliary obstruction. Patient is doing well from a GI standpoint. I would recommend Protonix 40 mg once a day., Stool softener with Colace 100 mg p.o. daily she does not seem to be experiencing any signs of ileus secondary to recent pancreatitis or gastroparesis secondary to pancreatitis as her appetite is improving. (2) Cholelithiasis: PLAN: Status postcholecystectomy today without any problems. Cholangiogram did not show any abnormalities or filling defects in the distal common bile duct. Recommendations as per surgery Charges/Coding Visit Charges Inpatient E&M: 17017 Subs Hosp L3 09/04/22 1842 <Electronically signed by Robinson Mendenhall DO> Robinson Mendenhall DO Cosigner Signature (if applicable): CC: ~ Signed [facility] Work Phone: [phone]) [phone] Coffman [facility] September 04, 2022 11:52am Note Date/Time September 04, 2022 7:1 7am [facility] Medical Records Department [address] [place] [address] Progress Note - Hospitalist 09/04/22712 MR#: [id number] Acct: [id number] Name: KATE OREILLY Rep #:[id number] : 1945 77 From: Tyler Coffman DO PCP: Nito KINGKenn Status:ADM IN Location: [place] [address]-1 Reason for Visit Reason for Visit: Diagnoses Secondary pulmonary arterial hypertension (08/30/22) Calculus of gallbladder without cholecystitis without obstruction (08/30/22) Biliary acute pancreatitis without necrosis or infection (08/30/22) Elevation of levels of liver transaminase levels (08/30/22) Acquired absence of other specified parts of digestive tract (08/30/22) Subjective Subjective Feels well. States that the swelling in her legs and arms is better and that she can move her legs better. Objective Data Objective Data Vital Signs: Vital Signs Temp Pulse Resp BP Pulse Ox O2 Del Method O2 Flow Rate 37.2 C 100 18 148/62 H 97 CPAP 2 09/04/22 02:04 09/04/22 02:04 09/04/22 02:04 09/04/22 02:04 09/04/22 02:04 09/04/22 02:04 09/01/22 18:15 Oxygen Flow Rate (L/min) 2 Oxygen Delivery Method CPAP Weight: 103.918 kg Body Mass Index (BMI) 35.9 Intake & Output: Intake and Output for Last 24 Hours 03/09/03/22 09/04/22 23:59 23:59 23:59 Intake Total 2888 / 2888 2320.0 / 2320.0 Output Total 1550 / 1550 Balance 2888 / 2888 2320.0 / 2320.0 -1550 / -1550 Lab / Micro Data Result Diagrams: 09/04/22 04:48 09/04/22 04:48 Labs: Laboratory Results - last 24 hr 09/03/22 06:35: Sodium 145, Potassium 3.5, Chloride 116 H, Carbon Dioxide 22.0, Anion Gap 7, BUN 16, Creatinine 0.59, Estim Creat Clear Calc 45.82, Est GFR (MDRD) Af Amer 127, Est GFR (MDRD) Non-Af 105, BUN/Creatinine Ratio 27.2 H, Glucose 98, Calcium 7.6 L, Total Bilirubin 0.40, AST 30, ALT 107 H, Alkaline Phosphatase 85, Total Protein 5.5 L, Albumin 2.3 L, Globulin 3.2, Albumin/Globulin Ratio 0.7 L 09/04/22 04:48: WBC 7.1, RBC 3.57 L, Hgb 10.2 L, Hct 32.8 L, MCV 91.9, MCH 28.6,MCHC 31.1 L, RDW Std Deviation 48.1 H, RDW Coeff of Rajinder 14.3, Plt Count 171, MPV11.9, Immature Gran % (Auto) 0.400, Neut % (Auto) 59.5, Lymph % (Auto) 30.9, [place] % (Auto) 7.7, Eos % (Auto) 1.1, Baso % (Auto) 0.4, Absolute Neuts (auto) 4.2, Absolute Lymphs (auto) 2.18, Nucleated RBC % 0 09/04/22 04:48: Sodium 145, Potassium 2.9 L, Chloride 115 H, Carbon Dioxide 23.0, Anion Gap 7, BUN 9, Creatinine 0.62, Estim Creat Clear Calc 45.82, Est GFR(MDRD) Af Amer 121, Est GFR (MDRD) Non-Af 100, BUN/Creatinine Ratio 14.6, Glucose 97, Calcium 7.6 L, Total Bilirubin 0.60, AST 17, ALT 72 H, Alkaline Phosphatase 69, Total Protein 5.0 L, Albumin 2.0 L, Globulin 3.0, Albumin/Globulin Ratio 0.7 L Micro: Microbiology 08/31/22 23:09 Blood Culture (Wb) - Right Wrist Blood Culture - Preliminary No growth in 48 hours. 08/31/22 23:00 Blood Culture (Wb) - Right Forearm Blood Culture - Preliminary No growth in 48 hours. Physical Exam Const alert and no apparent distress Resp normal respiratory effort, no retractions, no use of accessory muscles and clearto auscultation bilaterally Cardio regular rate, regular rhythm, S1 normal heart sound and S2 normal heart sound GI normal to inspection, nondistended, normoactive bowel sounds, soft to palpation,non-tender and non-distended Assessment & Plan Assessment/Plan (1) Acute biliary pancreatitis: PLAN: Acute gallstone pancreatitis -Gallbladder ultrasound demonstrated multiple gallstones and gallbladder distention to 10.4 cm with no increased wall thickness or pericholecystic fluid but has elevated bili as well as liver function tests and a lipase of 23,197 -CT of the abdomen with acute interstitial edematous pancreatitis 09/01: Patient underwent a laparoscopic cholecystectomy with intraoperative cholangiogram. Was having a fever overnight and started on meropenem, which has subsequent beendiscontinued. Advance diet per general surgery. Now on regular diet. (2) Transaminitis: PLAN: Improving. Most likely secondary to choledocholithiasis. Acute hepatitis profile negative Antimitochondrial antibody and anti-smooth muscle antibody less than 20 and 3, respectively. These results are within normal limits. (3) Hypokalemia: PLAN: Replace magnesium 1.8. Will replace. PLAN: Plan Chronic conditions: * Hypothyroidism-Continue Synthroid daily * SREEKANTH-CPAP nightly * Group 3 pulmonary hypertension-Last echo demonstrated EF of 65% with RVSP estimated to be 40 mmHg-Follows with Dr. Stroud as an outpatient-Lasix has been resumed DVT ppx: Lovenox subq Charges/Coding Visit Charges Inpatient E&M: 44216 Subs Hosp L2 09/04/22 1152 <Electronically signed by Tyler Coffman DO> Cosigner Signature (if applicable): CC: ~ Signed [facility] Work Phone: [phone]) [phone] Jean-Baptiste [facility] September 04, 2022 8:43am Note Date/Time September 04, 2022 8:2 8am [facility] Medical Records Department [address] [place] [address] Progress Note - Surgery 09/04/22827 MR#: [id number] Acct: [id number] Name: KATE OREILLY Rep #:[id number] : 1945 77 From: Fernando Tenorio PCP: Kenn Beauchamp MD Status:ADM IN Location: [place] 660853-1 Subjective Subjective Patient seen and examined during AM rounds. She is sitting upright in bed but states that she is feeling much better. She denies any abdominal discomfort. She states that she has an appetite this morning. She is appreciative of her diuresis yesterday as she states she can now move her hands more freely and can lift her legs into bed. Objective Data Objective Data Vital Signs: Vital Signs Temp Pulse Resp BP Pulse Ox O2 Del Method O2 Flow Rate 98.8 F 94 18 123/58 H 94 Room Air 2 09/04/22 08:00 09/04/22 08:00 09/04/22 08:00 09/04/22 08:00 09/04/22 08:00 09/04/22 08:00 09/01/22 18:15 Oxygen Flow Rate (L/min) 2 Oxygen Delivery Method Room Air Weight: 229 lb 1.6 oz Body Mass Index (BMI) 35.9 Intake & Output: Intake and Output for Last 24 Hours 09/02/22 09/03/22 09/04/22 23:59 23:59 23:59 Intake Total 2888 / 2888 2320.0 / 2320.0 Output Total 1550 / 1550 Balance 2888 / 2888 2320.0 / 2320.0 -1550 / -1550 Lab / Micro Data Result Diagrams: 09/04/22 04:48 09/04/22 04:48 Labs: Laboratory Results - last 24 hr 09/04/22 04:48: WBC 7.1, RBC 3.57 L, Hgb 10.2 L, Hct 32.8 L, MCV 91.9, MCH 28.6,MCHC 31.1 L, RDW Std Deviation 48.1 H, RDW Coeff of Rajinder 14.3, Plt Count 171, MPV11.9, Immature Gran % (Auto) 0.400, Neut % (Auto) 59.5, Lymph % (Auto) 30.9, [place] % (Auto) 7.7, Eos % (Auto) 1.1, Baso % (Auto) 0.4, Absolute Neuts (auto) 4.2, Absolute Lymphs (auto) 2.18, Nucleated RBC % 0 09/04/22 04:48: Sodium 145, Potassium 2.9 L, Chloride 115 H, Carbon Dioxide 23.0, Anion Gap 7, BUN 9, Creatinine 0.62, Estim Creat Clear Calc 45.82, Est GFR(MDRD) Af Amer 121, Est GFR (MDRD) Non-Af 100, BUN/Creatinine Ratio 14.6, Glucose 97, Calcium 7.6 L, Total Bilirubin 0.60, AST 17, ALT 72 H, Alkaline Phosphatase 69, Total Protein 5.0 L, Albumin 2.0 L, Globulin 3.0, Albumin/Globulin Ratio 0.7 L Micro: Microbiology 08/31/22 23:09 Blood Culture (Wb) - Right Wrist Blood Culture - Preliminary No growth in 48 hours. 08/31/22 23:00 Blood Culture (Wb) - Right Forearm Blood Culture - Preliminary No growth in 48 hours. Physical Exam Const oriented x3 and no apparent distress Resp normal respiratory effort GI GI Narrative: Mildly distended, operative sites appear appropriate with Steri-Strips and no surrounding redness or drainage. Abdomen is soft and nontender to palpation?including in the epigastrium. Assessment & Plan Assessment/Plan (1) Acute biliary pancreatitis: PLAN: This is a 77-year-old female admitted for acute pancreatitis?believed to be related to a biliary origin given her concurrent elevation of liver enzymes. Patient now postoperative day 2 from laparoscopic cholecystectomy with intraoperative cholangiogram. Cholangiogram did not demonstrate any filling defects so no ERCP was undertaken. Patient with improved abdominal exam today. Anasarca appears improved after diuresis was begun yesterday and patient reportsimproved mobility. Patient does have a slight decrease in her hemoglobin despite this diuresis, but denies any symptoms of lightheadedness and her operative sites appear appropriate. I did restart her Lovenox after her hemoglobin was stable x2. We will continue to monitor. (2) Status post cholecystectomy: PLAN: Patient postoperative day 4 from lap lissette with IOC. Negative IOC as above. Patient with improved clinical exam and decreased anasarca following beginning diuresis yesterday. Specifically recommend: ? Continue diuresis, maintain stricter I's and O's ? Advance to regular diet with protein supplementation ? Stop antibiotics (now that we have assured the biliary tract is unobstructed) ? Patient can be started back on Lovenox 09/03/2022 with slight downtrend in hemoglobin?continue to monitor 09/04/22 0843 <Electronically signed by Fernando Jean-Baptiste MD> Cosigner Signature (if applicable): CC: ~ Signed [facility] Work Phone: [phone]) 589-656403-16-2023 Progress note Author Robinson Friend [facility] September 03, 2022 6:13pm Note Date/Time September 03, 2022 6:1 3pm [facility] Medical Records Department [address] [place] [address] Progress Note 09/03/22 1811 MR#: [id number] Acct: [id number] Name: KATE OREILLY Rep #:[id number] : 1945 77 From: Robinson Mendenhall DO PCP: Nito KING,Kenn Status:ADM IN Location: [facility] UK750-0 Subjective Subjective Patient is doing a lot better today. She denies any abdominal pain. She deniesany fevers or chills. She is having bowel movements. Objective Data Objective Data Vital Signs: Vital Signs Temp Pulse Resp BP Pulse Ox O2 Del Method O2 Flow Rate 98.3 F 105 H 18 150/63 H 99 Room Air 2 09/03/22 13:44 09/03/22 13:44 09/03/22 13:44 09/03/22 13:44 09/03/22 13:44 09/03/22 15:05 09/01/22 18:15 Oxygen Flow Rate (L/min) 2 Oxygen Delivery Method Room Air Weight: 232 lb 5.875 oz Body Mass Index (BMI) 36.4 Intake & Output: Intake and Output for Last 24 Hours 09/01/22 09/02/22 09/03/22 23:59 23:59 23:59 Intake Total 3019.75 / 3019.75 2888 / 2888 1232.5 / 1232.5 Output Total 650 / 650 Balance 2369.75 / 2369.75 2888 / 2888 1232.5 / 1232.5 Lab / Micro Data Result Diagrams: 09/03/22 06:35 09/03/22 06:35 Labs: Laboratory Results - last 24 hr 09/03/22 06:35: WBC 8.5, RBC 3.90 L, Hgb 11.3 L, Hct 35.9 L, MCV 92.1, MCH 29.0,MCHC 31.5 L, RDW Std Deviation 48.9 H, RDW Coeff of Rajinder 14.6, Plt Count 167, MPV11.7, Immature Gran % (Auto) 0.400, Neut % (Auto) 68.8, Lymph % (Auto) 24.2, [place] % (Auto) 5.9, Eos % (Auto) 0.5, Baso % (Auto) 0.2, Absolute Neuts (auto) 5.9, Absolute Lymphs (auto) 2.06, Nucleated RBC % 0 09/03/22 06:35: Sodium 145, Potassium 3.5, Chloride 116 H, Carbon Dioxide 22.0, Anion Gap 7, BUN 16, Creatinine 0.59, Estim Creat Clear Calc 45.82, Est GFR (MDRD) Af Amer 127, Est GFR (MDRD) Non-Af 105, BUN/Creatinine Ratio 27.2 H, Glucose 98, Calcium 7.6 L, Total Bilirubin 0.40, AST 30, ALT 107 H, Alkaline Phosphatase 85, Total Protein 5.5 L, Albumin 2.3 L, Globulin 3.2, Albumin/Globulin Ratio 0.7 L Micro: Microbiology 08/31/22 23:09 Blood Culture (Wb) - Right Wrist Blood Culture - Preliminary No growth in 48 hours. 08/31/22 23:00 Blood Culture (Wb) - Right Forearm Blood Culture - Preliminary No growth in 48 hours. Physical Exam Const alert and no apparent distress Resp normal respiratory effort, no retractions, no use of accessory muscles and clearto auscultation bilaterally Cardio regular rate, regular rhythm, S1 normal heart sound and S2 normal heart sound GI normal to inspection, nondistended, normoactive bowel sounds, soft to palpation,non-tender and non-distended Assessment & Plan Assessment/Plan (1) Acute biliary pancreatitis: PLAN: Patient has not shown any sequela of pancreatitis at this time. However her CA 19-9 is elevated at 45. This could be secondary to acute pancreatitis however we should repeat the CA 19-9 in approximately 2 months and have a repeatCT scan with pancreatic protocol. If it is still elevated then she will need anendoscopic ultrasound or possible ERCP with biopsy. I will not send an IgG4 to look for type I autoimmune pancreatitis because this was likely secondary to biliary obstruction. (2) Cholelithiasis: PLAN: Status postcholecystectomy today without any problems. Cholangiogram did not show any abnormalities or filling defects in the distal common bile duct. Recommendations as per surgery Charges/Coding Visit Charges Inpatient E&M: 45551 Subs Hosp L3 09/03/221812 <Electronically signed by Robinson Friend DO> Robinson Friend DO Cosigner Signature (if applicable): CC: ~ Signed [facility] Work Phone: 1(184) 291-424103-16-[address] Jean-Baptiste [facility] September 03, 2022 4:44pm Note Date/Time September 03, 2022 6:5 3am [facility] Medical Records Department [address] [place] [address] Progress Note - Surgery 09/03/22 0653 MR#: [id number] Acct: [id number] Name: KATE OREILLY Rep #:[id number] : 1945 77 From: Fernando Tenorio PCP: Kenn Beauchamp MD Status:ADM IN Location: [place] [address] Subjective Subjective Patient seen and examined during AM rounds. She is found resting comfortably out of bed in a chair. She reports tolerance of her diet without any nausea or belching, but denies significant appetite. Objective Data Objective Data Vital Signs: Vital Signs Temp Pulse Resp BP Pulse Ox O2 Del Method O2 Flow Rate 97.9 F 87 16 126/62 H 100 CPAP 2 09/03/22 03:00 09/03/22 03:00 09/03/22 03:00 09/03/22 03:00 09/03/22 03:00 09/03/22 03:00 09/01/22 18:15 Oxygen Flow Rate (L/min) 2 Oxygen Delivery Method CPAP Weight: 232 lb 5.875 oz Body Mass Index (BMI) 36.4 Intake & Output: Intake and Output for Last 24 Hours 09/01/22 09/02/22 09/03/22 23:59 23:59 23:59 Intake Total 3019.75 / 3019.75 2888 / 2888 Output Total 650 / 650 Balance 2369.75 / 2369.75 2888 / 2888 Lab / Micro Data Result Diagrams: 09/03/22 06:35 09/03/22 06:35 Labs: Laboratory Results - last 24 hr 08/31/22 21:00: Anti-Mitochondrial Ab <20.0 08/31/22 21:00: Carcinoembryonic Ag 0.6, CA 19-9 Antigen 45 H, Anti-Smooth Muscle Ab 3, Hepatitis A IgM Ab Negative, Hep Bs Antigen Negative, Hep B Core IgM Ab Negative, Hepatitis C Ab (EIA) Non Reactive, Hep C Ab Comment Comment Physical Exam Const oriented x3 and no apparent distress Resp normal respiratory effort GI GI Narrative: Abdomen distended, operative dressings were intact without drainage, but once removed the Steri-Strips remain intact and the port sites are well-appearing without surrounding erythema or drainage. There is abdominal tenderness with palpation of the epigastrium which patient rates a 3 out of 10 Extremity Extremity Narrative: Anasarca present Assessment & Plan Assessment/Plan (1) Acute biliary pancreatitis: PLAN: This is a 77-year-old female admitted for acute pancreatitis?believed to be related to a biliary origin given her concurrent elevation of liver enzymes. Patient now postoperative day 2 from laparoscopic cholecystectomy with intraoperative cholangiogram. Cholangiogram did not demonstrate any filling defects so no ERCP was undertaken. Patient with stable abdominal exam today. Anasarca appears somewhat worsened. Given patient's history of reported lung scarring, SREEKANTH, and chronic dyspnea I would recommend beginning diuresis. Unfortunately intake and output totals do not appear reliable, but patient's weight of 232 pounds today is 29 pounds up from her admit weight. (2) Status post cholecystectomy: PLAN: Patient postoperative day 2 from lap lissette with IOC. Negative IOC as above. Patient with stable/improved clinical exam, but increasing anasarca. Patient continues slow progress. Specifically recommend: ? Strong consideration of beginning diuresis (can continue IV fluids if concerned about inadequate p.o. intake), institute stricter I's and O's ? Advance to full liquid diet with protein supplementation ? Stop antibiotics (now that we have assured the biliary tract is unobstructed) ? Patient can be started back on Lovenox today now that hemoglobin is stable The above measures were discussed with patient's primary team 09/03/22 1644 <Electronically signed by Fernnado Jean-Baptiste MD> Cosigner Signature (if applicable): CC: ~ Signed [facility] Work Phone: 1(920) 700-203503-16-[address] Coffman [facility] September 03, 2022 1:32pm Note Date/Time September 03, 2022 8:0 8am [facility] Medical Records Department [address] [place] [address] Progress Note - Hospitalist 09/03/22806 MR#: [id number] Acct: [id number] Name: KATE OREILLY Rep #:[id number] : 1945 77 From: Tyler Coffman DO PCP: Nito KINGKenn Status:ADM IN Location: [place] [address]-1 Reason for Visit Reason for Visit: Diagnoses Secondary pulmonary arterial hypertension (08/30/22) Calculus of gallbladder without cholecystitis without obstruction (08/30/22) Biliary acute pancreatitis without necrosis or infection (08/30/22) Elevation of levels of liver transaminase levels (08/30/22) Acquired absence of other specified parts of digestive tract (08/30/22) Subjective Subjective Not much appetite. Objective Data Objective Data Vital Signs: Vital Signs Temp Pulse Resp BP Pulse Ox O2 Del Method O2 Flow Rate 36.6 C 87 16 126/62 H 100 CPAP 2 09/03/22 03:00 09/03/22 03:00 09/03/22 03:00 09/03/22 03:00 09/03/22 03:00 09/03/22 03:00 09/01/22 18:15 Oxygen Flow Rate (L/min) 2 Oxygen Delivery Method CPAP Weight: 105.4 kg Body Mass Index (BMI) 36.4 Intake & Output: Intake and Output for Last 24 Hours 09/01/22 09/02/22 09/03/22 23:59 23:59 23:59 Intake Total 3019.75 / 3019.75 2888 / 2888 Output Total 650 / 650 Balance 2369.75 / 2369.75 2888 / 2888 Lab / Micro Data Result Diagrams: 09/03/22 06:35 09/03/22 06:35 Labs: Laboratory Results - last 24 hr 08/31/22 21:00: Anti-Mitochondrial Ab <20.0 08/31/22 21:00: Carcinoembryonic Ag 0.6, CA 19-9 Antigen 45 H, Anti-Smooth Muscle Ab 3, Hepatitis A IgM Ab Negative, Hep Bs Antigen Negative, Hep B Core IgM Ab Negative, Hepatitis C Ab (EIA) Non Reactive, Hep C Ab Comment Comment 09/03/22 06:35: WBC 8.5, RBC 3.90 L, Hgb 11.3 L, Hct 35.9 L, MCV 92.1, MCH 29.0,MCHC 31.5 L, RDW Std Deviation 48.9 H, RDW Coeff of Rajinder 14.6, Plt Count 167, MPV11.7, Immature Gran % (Auto) 0.400, Neut % (Auto) 68.8, Lymph % (Auto) 24.2, [place] % (Auto) 5.9, Eos % (Auto) 0.5, Baso % (Auto) 0.2, Absolute Neuts (auto) 5.9, Absolute Lymphs (auto) 2.06, Nucleated RBC % 0 09/03/22 06:35: Sodium 145, Potassium 3.5, Chloride 116 H, Carbon Dioxide 22.0, Anion Gap 7, BUN 16, Creatinine 0.59, Estim Creat Clear Calc 45.82, Est GFR (MDRD) Af Amer 127, Est GFR (MDRD) Non-Af 105, BUN/Creatinine Ratio 27.2 H, Glucose 98, Calcium 7.6 L, Total Bilirubin 0.40, AST 30, ALT 107 H, Alkaline Phosphatase 85, Total Protein 5.5 L, Albumin 2.3 L, Globulin 3.2, Albumin/Globulin Ratio 0.7 L Micro: Microbiology 08/31/22 23:09 Blood Culture (Wb) - Right Wrist Blood Culture - Preliminary No growth in 48 hours. 08/31/22 23:00 Blood Culture (Wb) - Right Forearm Blood Culture - Preliminary No growth in 48 hours. Physical Exam Const alert and no apparent distress Resp normal respiratory effort, no retractions, no use of accessory muscles and clearto auscultation bilaterally Cardio regular rate, regular rhythm, S1 normal heart sound and S2 normal heart sound GI normal to inspection, nondistended, normoactive bowel sounds, soft to palpation,non-tender and non-distended Assessment & Plan Assessment/Plan (1) Acute biliary pancreatitis: PLAN: Acute gallstone pancreatitis -Gallbladder ultrasound demonstrated multiple gallstones and gallbladder distention to 10.4 cm with no increased wall thickness or pericholecystic fluid but has elevated bili as well as liver function tests and a lipase of 23,197 -CT of the abdomen with acute interstitial edematous pancreatitis 09/01: Patient underwent a laparoscopic cholecystectomy with intraoperative cholangiogram. Was having a fever overnight and started on meropenem, which has subsequent beendiscontinued. Advance diet per general surgery. (2) Transaminitis: PLAN: Improving. Most likely secondary to choledocholithiasis. Acute hepatitis profile pending Antimitochondrial antibody and anti-smooth muscle antibody pending PLAN: Plan Chronic conditions: * Hypothyroidism-Continue Synthroid daily * SREEKANTH-CPAP nightly * Group 3 pulmonary hypertension-Last echo demonstrated EF of 65% with RVSP estimated to be 40 mmHg-Follows with Dr. Stroud as an outpatient-Is on Lasix twice daily, will hold this given presenting problem and monitor clinically-C ontinue to assess for ability to DC fluids or for signs and symptoms of overload DVT ppx: Lovenox subq Charges/Coding Visit Charges Inpatient E&M: 15327 Subs Hosp L2 09/03/22 1332 <Electronically signed by Tyler Coffman DO> Cosigner Signature (if applicable): CC: ~ Signed [facility] Work Phone: 1(113) 475-296003-15-2023 Progress note Author Robinson Mendenhall [facility] September 02, 2022 6:06pm Note Date/Time September 02, 2022 6:0 6pm [facility] Medical Records Department [address] [place] [address] Progress Note 09/02/22 180 MR#: [id number] Acct: [id number] Name: KATE OREILLY Rep #:[id number] : 1945 77 From: Robinson Mendenhall DO PCP: Kenn Beauchamp MD Status:ADM IN Location: MS3 [id number] Subjective Subjective Patient underwent successful cholecystectomy. She complains of some mild nausea. She denies any chest pain or shortness of breath. She denies any dark stools. Objective Data Objective Data Vital Signs: Vital Signs Temp Pulse Resp BP Pulse Ox O2 Del Method O2 Flow Rate 97.4 F L 76 17 124/68 H 100 Room Air 2 09/02/22 15:44 09/02/22 15:44 09/02/22 15:44 09/02/22 15:44 09/02/22 15:44 09/02/22 15:44 09/01/22 18:15 Oxygen Flow Rate (L/min) 2 Oxygen Delivery Method Room Air Weight: 224 lb 13.944 oz Body Mass Index (BMI) 35.2 Intake & Output: Intake and Output for Last 24 Hours 08/31/22 09/01/22 09/02/22 23:59 23:59 23:59 Intake Total 3802.5 / 3802.5 3019.75 / 3019.75 2052 Output Total 650 / 650 Balance 3802.5 / 3602.5 2369.75 / 2369.75 2052 Lab / Micro Data Result Diagrams: 09/02/22 05:50 09/02/22 05:50 Labs: Laboratory Results - last 24 hr 08/31/22 21:00: Anti-Mitochondrial Ab <20.0 08/31/22 21:00: Carcinoembryonic Ag 0.6, CA 19-9 Antigen 45 H, Anti-Smooth Muscle Ab 3, Hepatitis A IgM Ab Negative, Hep Bs Antigen Negative, Hep B Core IgM Ab Negative, Hepatitis C Ab (EIA) Non Reactive, Hep C Ab Comment Comment 09/02/22 05:50: WBC 8.3, RBC 3.96 L, Hgb 11.4 L, Hct 37.3, MCV 94.2, MCH 28.8, MCHC 30.6 L, RDW Std Deviation 50.3 H, RDW Coeff of Rajinder 14.4, Plt Count 150, MPV11.9, Immature Gran % (Auto) 0.400, Neut % (Auto) 84.8 H, Lymph % (Auto) 10.6 L,[place] % (Auto) 4.1, Eos % (Auto) 0.0, Baso % (Auto) 0.1, Absolute Neuts (auto) 7.0, Absolute Lymphs (auto) 0.88, Nucleated RBC % 0 09/02/22 05:50: Sodium 145, Potassium 4.0, Chloride 116 H, Carbon Dioxide 21.0, Anion Gap 8, BUN 16, Creatinine 0.62, Estim Creat Clear Calc 45.82, Est GFR (MDRD) Af Amer 119, Est GFR (MDRD) Non-Af 98, BUN/Creatinine Ratio 25.6 H, Glucose 120 H, Calcium 7.5 L Physical Exam Const alert Resp normal respiratory effort, no retractions, no use of accessory muscles and clearto auscultation bilaterally Cardio regular rate, regular rhythm, S1 normal heart sound and S2 normal heart sound GI normal to inspection, nondistended, normoactive bowel sounds, soft to palpation,non-tender and non-distended Neuro oriented x3 Sensorium / Orientation: awake and alert Assessment & Plan Assessment/Plan (1) Acute biliary pancreatitis: PLAN: Her amylase lipase is decreasing nicely. Agree with decreasing IV fluids as she is showing some signs of edema. Repeat ESR, CRP and amylase and lipase tomorrow. I am okay with advancing her diet as tolerated. (2) Cholelithiasis: PLAN: Status postcholecystectomy today without any problems. Cholangiogram did not show any abnormalities or filling defects in the distal common bile duct. Recommendations as per surgery Charges/Coding Visit Charges Inpatient E&M: 79583 Subs Hosp L3 09/02/22 1806 <Electronically signed by Robinson Mendenhall DO> Robinson Mendenhall DO Cosigner Signature (if applicable): CC: ~ Signed [facility] Work Phone: [phone]) [phone] Coffman [facility] September 02, 2022 11:33am Note Date/Time September 02, 2022 7:4 4am [facility] Medical Records Department [address] [place] [address] Progress Note - Hospitalist 09/02/22 0739 MR#: [id number] Acct: [id number] Name: DENILSONKATE GONZALEZS Rep #:[id number] : 1945 77 From: Tyler Coffman DO PCP: Nito KING,Kenn Status:ADM IN Location: MS3 [id number] Reason for Visit Reason for Visit: Diagnoses Secondary pulmonary arterial hypertension (08/30/22) Calculus of gallbladder without cholecystitis without obstruction (08/30/22) Biliary acute pancreatitis without necrosis or infection (08/30/22) Subjective Subjective Abdomen feeling better. Anxious to start having clears. Objective Data Objective Data Vital Signs: Vital Signs Temp Pulse Resp BP Pulse Ox O2 Del Method O2 Flow Rate 36.8 C 73 18 125/59 H 99 Room Air 2 09/02/22 06:33 09/02/22 06:33 09/02/22 06:33 09/02/22 06:33 09/02/22 06:33 09/02/22 06:33 09/01/22 18:15 Oxygen Flow Rate (L/min) 2 Oxygen Delivery Method Room Air Weight: 102 kg Body Mass Index (BMI) 35.2 Intake & Output: Intake and Output for Last 24 Hours 08/31/22 09/01/22 09/02/22 23:59 23:59 23:59 Intake Total 3802.5 / 3802.5 3019.75 / 3019.75 820 / 820 Output Total 650 / 650 Balance 3802.5 / 3602.5 2369.75 / 2369.75 820 / 820 Lab / Micro Data Result Diagrams: 09/02/22 05:50 09/02/22 05:50 Labs: Laboratory Results - last 24 hr 09/02/22 05:50: WBC 8.3, RBC 3.96 L, Hgb 11.4 L, Hct 37.3, MCV 94.2, MCH 28.8, MCHC 30.6 L, RDW Std Deviation 50.3 H, RDW Coeff of Rajinder 14.4, Plt Count 150, MPV11.9, Immature Gran % (Auto) 0.400, Neut % (Auto) 84.8 H, Lymph % (Auto) 10.6 L,[place] % (Auto) 4.1, Eos % (Auto) 0.0, Baso % (Auto) 0.1, Absolute Neuts (auto) 7.0, Absolute Lymphs (auto) 0.88, Nucleated RBC % 0 03/15/23 05:50: Sodium 145, Potassium 4.0, Chloride 116 H, Carbon Dioxide 21.0, Anion Gap 8, BUN 16, Creatinine 0.62, Estim Creat Clear Calc 45.82, Est GFR (MDRD) Af Amer 119, Est GFR (MDRD) Non-Af 98, BUN/Creatinine Ratio 25.6 H, Glucose 120 H, Calcium 7.5 L Radiography Diagnostic Testing: Radiology Impression Cholangiogram 09/01/22 10:55 IMPRESSION: 1. Status post intrahepatic cholangiogram without abnormalities 2. Status post cholecystectomy Electronically Signed: Anthony Rocha MD at 13:22 EDT Reading Location ID and State: [facility] / [place] , Service support , Physical Exam Const alert Resp normal respiratory effort, no retractions, no use of accessory muscles and clearto auscultation bilaterally Cardio regular rate, regular rhythm, S1 normal heart sound and S2 normal heart sound GI normal to inspection, nondistended, normoactive bowel sounds, soft to palpation,non-tender and non-distended Neuro oriented x3 Sensorium / Orientation: awake and alert Assessment & Plan Assessment/Plan (1) Acute biliary pancreatitis: PLAN: Acute gallstone pancreatitis -Gallbladder ultrasound demonstrated multiple gallstones and gallbladder distention to 10.4 cm with no increased wall thickness or pericholecystic fluid but has elevated bili as well as liver function tests and a lipase of 23,197 -CT of the abdomen with acute interstitial edematous pancreatitis 09/01: Patient underwent a laparoscopic cholecystectomy with intraoperative cholangiogram. Was having a fever overnight and started on meropenem, which has subsequent beendiscontinued. Advance diet per general surgery. (2) Transaminitis: PLAN: Improving. Secondary to choledocholithiasis. Acute hepatitis profile pending Antimitochondrial antibody and anti-smooth muscle antibody pending PLAN: Plan Chronic conditions: * Hypothyroidism-Continue Synthroid daily * SREEKANTH-CPAP nightly * Group 3 pulmonary hypertension-Last echo demonstrated EF of 65% with RVSP estimated to be 40 mmHg-Follows with Dr. Stroud as an outpatient-Is on Lasix twice daily, will hold this given presenting problem and monitor clinically- Continue to assess for ability to DC fluids or for signs and symptoms of overload DVT ppx: Lovenox subq Charges/Coding Visit Charges Inpatient E&M: 67512 Subs Hosp L2 09/02/22 1133 <Electronically signed by Tyler Coffman DO> Cosigner Signature (if applicable): CC: ~ Signed [facility] Work Phone: 1(401) [phone] Jean-Baptiste [facility] September 02, 2022 9:43am Note Date/Time September 02, 2022 9:4 3am [facility] Medical Records Department [address] [place] [address] Progress Note - Surgery 09/02/22 0937 MR#: [id number] Acct: [id number] Name: KATE OREILLY Rep #:[id number] : 1945 77 From: Fernando Tenorio PCP: Nito KING,Kenn Status:ADM IN Location: [place] [address] Subjective Subjective Patient seen and examined during AM rounds. She is found sitting upright in bed. She reports that her abdominal discomfort is minimal and that she is feeling sleepy this morning. She denies a strong appetite, but does complain ofthirst. She also remarks that she is feeling more swelling in her hands. Objective Data Objective Data Vital Signs: Vital Signs Temp Pulse Resp BP Pulse Ox O2 Del Method O2 Flow Rate 98.1 F 80 16 126/91 H 99 Room Air 2 09/02/22 08:16 09/02/22 08:16 09/02/22 08:16 09/02/22 08:16 09/02/22 08:46 09/02/22 08:46 09/01/22 18:15 Oxygen Flow Rate (L/min) 2 Oxygen Delivery Method Room Air Weight: 224 lb 13.944 oz Body Mass Index (BMI) 35.2 Intake & Output: Intake and Output for Last 24 Hours 08/31/22 09/01/22 09/02/22 23:59 23:59 23:59 Intake Total 3802.5 / 3802.5 3019.75 / 3019.75 861 / 861 Output Total 650 / 650 Balance 3802.5 / 3602.5 2369.75 / 2369.75 861 / 861 Lab / Micro Data Result Diagrams: 09/02/22 05:50 09/02/22 05:50 Labs: Laboratory Results - last 24 hr 09/02/22 05:50: WBC 8.3, RBC 3.96 L, Hgb 11.4 L, Hct 37.3, MCV 94.2, MCH 28.8, MCHC 30.6 L, RDW Std Deviation 50.3 H, RDW Coeff of Rajinder 14.4, Plt Count 150, MPV11.9, Immature Gran % (Auto) 0.400, Neut % (Auto) 84.8 H, Lymph % (Auto) 10.6 L,[place] % (Auto) 4.1, Eos % (Auto) 0.0, Baso % (Auto) 0.1, Absolute Neuts (auto) 7.0, Absolute Lymphs (auto) 0.88, Nucleated RBC % 0 09/02/22 05:50: Sodium 145, Potassium 4.0, Chloride 116 H, Carbon Dioxide 21.0, Anion Gap 8, BUN 16, Creatinine 0.62, Estim Creat Clear Calc 45.82, Est GFR (MDRD) Af Amer 119, Est GFR (MDRD) Non-Af 98, BUN/Creatinine Ratio 25.6 H, Glucose 120 H, Calcium 7.5 L Radiography Diagnostic Testing: Radiology Impression Cholangiogram 09/01/22 10:55 IMPRESSION: 1. Status post intrahepatic cholangiogram without abnormalities 2. Status post cholecystectomy Electronically Signed: Anthony Rocha MD at 13:22 EDT Reading Location ID and State: [address] [place] [address] , Service support , Physical Exam Const oriented x3 and no apparent distress Resp Resp Narrative: Patient's vital capacity somewhat diminished as she is only able to achieve 900 mL with the incentive spirometer GI GI Narrative: Mildly distended, operative sites with operative dressings intact and no strikethrough. Patient denies any pain from her port sites but reports very mild tenderness in the epigastrium rated a 2/10 with deep palpation Assessment & Plan Assessment/Plan (1) Acute biliary pancreatitis: PLAN: This is a 77-year-old female admitted for acute pancreatitis?believed to be related to a biliary origin given her concurrent elevation of liver enzymes. Patient now postoperative day 1 from laparoscopic cholecystectomy with intraoperative cholangiogram. Cholangiogram did not demonstrate any filling defects so no ERCP was undertaken. Patient with decreased epigastric pain today. (2) Status post cholecystectomy: PLAN: Patient postoperative day 1 from lap lissette with IOC. Negative IOC as above. Patient with improved clinical exam, but increasing anasarca. Given that ORproceeded in uncomplicated fashion yesterday and clinical appearance is improved, would recommend scaling back pancreatitis treatment measures. Specifically recommend: ? Decreased IV fluids ? Trial clear liquids with protein supplementation ? Stop antibiotics (now that we have assured the biliary tract is unobstructed) ? Patient could be started back on Lovenox tomorrow as long as hemoglobin remained stable to improved The above measures were discussed with patient's primary team and orders were adjusted accordingly after confirming agreement Charges/Coding Visit Charges Inpatient E&M: 38722 Subs Hosp L2 09/02/22 0943 <Electronically signed by Fernando Jean-Baptiste MD> Cosigner Signature (if applicable): CC: ~ Signed [facility] Work Phone: 1(626) 945-404803-15-2023 Consult note Author Robinson Mendenhall [facility] September 02, 2022 7:40am Note Date/Time August 31, 2022 1:4 3pm [facility] Medical Records Department [address] [place] [address] Consultation - GI 08/31/22 1343 MR#: [id number] Acct: [id number] Name: KATE OREILLY Rep #:[id number] : 1945 77 From: Robinson Mendenhall DO PCP: Kenn Beauchamp MD Status:ADM IN Location: [facility] [id number] HPI Consult Data Date of Consult: 08/31/22 HPI Narrative Reason for Consultation: Choledocholithiasis and pancreatitis HPI Narrative: KATE OREILLY, is a 77 F who presents with worsening abdominal pain.? She alsohas been having some shortness of breath. She has been evaluated by the production sorter and has had a 6-minute test with his saturations dropping but not enough to require oxygen.? She had a CT scan of her chest which demonstrated abnormal scarring with some calcified granulomas and calcified coronary artery.?She also had an echocardiogram performed which demonstrated an ejection fractionof 65%, no wall motion abnormalities, right ventricular systolic pressure estimated to be 40 mmHg.? Patient ate chili for dinner last night and a couple hours later started gettingdiffuse upper abdominal pain that has been worsening, it is not necessarily colicky, she has had nausea and vomiting.? No history of any abdominal surgeriesin the past.? It is a little more uncomfortable to take deep breaths but she does not have lateralizing pain with doing so nor does she have discomfort in her chest or back.? The pain radiates in a bandlike distribution around to her sides.? No lower abdominal pain.? No distention, she states her abdomen is its usual size. 08/31/22 06:50: Sodium 143, Potassium 3.7, Chloride 111 H, Carbon Dioxide 26.0, Anion Gap 6, BUN 11, Creatinine 0.84, Estim Creat Clear Calc 58.61, Est GFR (MDRD) Af Amer 84, Est GFR (MDRD) Non-Af 70, BUN/Creatinine Ratio 13.0, Glucose 110 H, Calcium 7.7 L, Total Bilirubin 1.40 H, AST 387 H, ALT 462 H, Alkaline Phosphatase 140 H, Total Protein 5.7 L, Albumin 2.7 L, Globulin 3.0, Albumin/Globulin Ratio 0.9, TSH 0.89, lipase of 24,000 08/31/22 06:50: ESR 19 She had ultrasound of the right upper quadrant in the ED : liver: Enlarged to 22 cm with diffusely increased echotexture.? Normal portal venous blood flow. Gallbladder: Normal wall thickness.? Multiple shadowing gallstones.? No pericholecystic fluid.? Sonographic Reveles''s sign reported negative. Distended to 10.4 cm. Biliary Tree: Nondilated. Common bile duct measures 6 mm. Pancreas: Limited evaluation of the head and body is unremarkable. Right kidney: Normal in size and echogenicity. No hydronephrosis or stones. The right kidney measures 12.2 cm in long axis. She had a CT scan of the abdomen pelvis: Finding consistent with acute interstitial edematous pancreatitis [facility] Medical History Diverticulosis Essential hypertension Hyperlipidemia Hypothyroidism Meningioma, cerebral Obesity Obstructive sleep apnea Secondary pulmonary arterial hypertension Trigeminal neuralgia Home Medications pregabalin 100 mg capsule (Lyrica) 100 mg PO TID 05/12/21 [History Last Taken Unknown] montelukast 10 mg tablet (Singulair) 10 mg PO QHS 08/13/21 [History Last Taken Unknown] multivitamin (Daily Multi-Vitamin tablet) 1 tab PO DAILY 08/13/21 [History Last Taken Unknown] furosemide 40 mg tablet (Lasix) 40 mg PO BID 11/11/21 [History Last Taken Unknown] levothyroxine 100 mcg tablet 100 mcg PO DAILY 11/11/21 [History Last Taken Unknown] losartan 100 mg tablet 100 mg PO DAILY #90 tabs 03/30/22 [Rx Last Taken Unknown] Allergy/AdvReac Type Severity Reaction Status Date / Time amoxicillin Allergy rash Verified 08/30/22 13:30 carbamazepine Allergy rash Verified 08/30/22 13:30 rofecoxib [From Vioxx] Allergy rash Verified 08/30/22 13:30 acetaminophen [From Percocet] AdvReac Vomiting Verified 08/30/22 13:30 codeine AdvReac vomiting Verified 08/30/22 13:30 fentanyl AdvReac Vomiting Verified 08/30/22 13:30 gabapentin [From Neurontin] AdvReac intolerance Verified 08/30/22 13:30 hydrocodone [From Vicodin] AdvReac Vomiting Verified 08/30/22 13:30 meperidine [From Demerol] AdvReac Vomiting Verified 08/30/22 13:30 oxycodone [From Percocet] AdvReac Vomiting Verified 08/30/22 13:30 topiramate [From Topamax] AdvReac intolerance Verified 08/30/22 13:30 tramadol AdvReac Vomiting Verified 08/30/22 13:30 Family History Mother CVA (cerebral vascular accident) Heart disease PPM Father Heart disease valve replacement, PPM Brother Heart disease Brother Heart disease Sister Heart disease Sister Colon cancer Sister Breast cancer Daughter Breast cancer Surgical History History of cataract surgery History of colonoscopy History of craniotomy (2010) History of right and left heart catheterization (09/01/21) TN (trigeminal neuralgia) (2019) Social History Smoking Status: Never smoker alcohol intake: never substance use type: does not use caffeine: Yes Type: coffee Number of servings: 4 ROS ROS Narrative General: Denies fever or chills HENT: Denies headache EYES: Did not endorse acute changes in vision Resp: Chronic shortness of breath Cardiac: Denies chest pain GI: Does have abdominal pain and epigastric, 3 small bowel movements yesterday, no diarrhea : Denies changes in urination Extremity: Denies any changes in swelling MSK: Feels generally unwell, has some chronic back pain Neuro: Denies any numbness, denies tingling, has chronic trigeminal pain Heme: Denies any bleeding or bruising Skin: Denies rashes Psychiatric: No complaints voiced Physical Exam Narrative General: Alert, oriented, no apparent distress HEENT: Atraumatic, normocephalic Eyes: Anicteric, normal conjunctiva, extraocular movements grossly intact Neck: Supple Respiratory: Clear to auscultation bilaterally, normal respiratory effort Cardiovascular: Regular rate and rhythm GI: Tender diffusely but primarily in the epigastric region, no rebound, guarding, rigidity, decreased bowel sounds Extremities: No edema Musculoskeletal: Moving all extremities Neuro: No overt focal neurological deficits Skin: No rashes appreciated Psych: Cooperative Lab / Micro Data Result Diagrams: 08/31/22 06:50 08/31/22 06:50 Labs: Laboratory Results - last 24 hr 08/30/22 15:28: WBC 7.9, RBC 4.99, Hgb 14.1, Hct 44.9, MCV 90.0, MCH 28.3, MCHC 31.4 L, RDW Std Deviation 44.9 H, RDW Coeff of Rajinder 13.7, Plt Count , Immature Gran % (Auto) 0.400, Neut % (Auto) 69.2, Lymph % (Auto) 24.3, [place] % (Auto) 5.6,Eos % (Auto) 0.1, Baso % (Auto) 0.4, Absolute Neuts (auto) 5.5, Absolute Lymphs (auto) 1.92, Nucleated RBC % 0, Differential Comment SCANNED, Platelet Estimate ADEQUATE 08/30/22 15:28: Sodium Cancelled, Potassium Cancelled, Chloride Cancelled, Carbon Dioxide Cancelled, Anion Gap Cancelled, BUN Cancelled, Creatinine Cancelled, Estim Creat Clear Calc Cancelled, Est GFR (MDRD) Af Amer Cancelled, Est GFR (MDRD) Non-Af Cancelled, BUN/Creatinine Ratio Cancelled, Glucose Cancelled, Calcium Cancelled, Total Bilirubin Cancelled, AST Cancelled, ALT Cancelled, Alkaline Phosphatase Cancelled, Total Protein Cancelled, Albumin Cancelled, Globulin Cancelled, Albumin/Globulin Ratio Cancelled, Lipase Cancelled 08/30/22 16:27: Sodium Cancelled, Potassium Cancelled, Chloride Cancelled, Carbon Dioxide Cancelled, Anion Gap Cancelled, BUN Cancelled, Creatinine Cancelled, Estim Creat Clear Calc Cancelled, Est GFR (MDRD) Af Amer Cancelled, Est GFR (MDRD) Non-Af Cancelled, BUN/Creatinine Ratio Cancelled, Glucose Cancelled, Calcium Cancelled, Total Bilirubin Cancelled, AST Cancelled, ALT Cancelled, Alkaline Phosphatase Cancelled, Total Protein Cancelled, Albumin Cancelled, Globulin Cancelled, Albumin/Globulin Ratio Cancelled, Lipase Cancelled 08/30/22 17:02: Urine Color Yellow, Urine Clarity Clear, Urine pH 8.0, Ur Specific Man 1.015, Urine Protein Negative, Urine Glucose (UA) Normal, UrineKetones Negative, Urine Occult Blood Negative, Urine Nitrite Negative, Urine Bilirubin Negative, Urine Urobilinogen Normal, Ur Leukocyte Esterase 25 H, UrineRBC 0 SEEN, Urine WBC 0 SEEN, Ur Squamous Epith Cells 0 SEEN, Urine Bacteria 0 SEEN, Urine Mucus 0 SEEN 08/30/22 18:25: Sodium 143, Potassium 4.2, Chloride 107, Carbon Dioxide 28.0, Anion Gap 8, BUN 16, Creatinine 0.96, Estim Creat Clear Calc 51.29, Est GFR (MDRD) Af Amer 73, Est GFR (MDRD) Non-Af 60, BUN/Creatinine Ratio 16.7, Glucose 121 H, Calcium 8.2 L, Total Bilirubin 1.40 H, AST 715 H, ALT 566 H, Alkaline Phosphatase 112, Total Protein 6.3 L, Albumin 3.2, Globulin 3.1, Albumin/Globulin Ratio 1.0, Lipase 21594 H 08/31/22 06:50: WBC 7.6, RBC 4.28, Hgb 12.5, Hct 39.3, MCV 91.8, MCH 29.2, MCHC 31.8 L, RDW Std Deviation 46.9 H, RDW Coeff of Rajinder 14.0, Plt Count 169, MPV 11.7, Immature Gran % (Auto) 0.400, Neut % (Auto) 74.2 H, Lymph % (Auto) 19.2, [place] % (Auto) 6.0, Eos % (Auto) 0.1, Baso % (Auto) 0.1, Absolute Neuts (auto) 5.6, Absolute Lymphs (auto) 1.45, Nucleated RBC % 0 08/31/22 06:50: Sodium 143, Potassium 3.7, Chloride 111 H, Carbon Dioxide 26.0, Anion Gap 6, BUN 11, Creatinine 0.84, Estim Creat Clear Calc 58.61, Est GFR (MDRD) Af Amer 84, Est GFR (MDRD) Non-Af 70, BUN/Creatinine Ratio 13.0, Glucose 110 H, Calcium 7.7 L, Total Bilirubin 1.40 H, AST 387 H, ALT 462 H, Alkaline Phosphatase 140 H, Total Protein 5.7 L, Albumin 2.7 L, Globulin 3.0, Albumin/Globulin Ratio 0.9, TSH 0.89 08/31/22 06:50: ESR 19 Radiology Impression Gallbladder Ultrasound 08/30/22 13:42 IMPRESSION: Cholelithiasis with nonspecific distention. No sonographic findings of acute cholecystitis. Enlarged fatty liver. Electronically Signed: Corbin Valiente MD at 17:27 EDT , Chest X-Ray 08/30/22 15:10 IMPRESSION: No radiographic evidence of acute cardiopulmonary disease. Electronically Signed: Corbin Valiente MD at 15:55 EDT , Abdomen/Pelvis CT 08/30/22 17:58 IMPRESSION: Finding consistent with acute interstitial edematous pancreatitis. Electronically Signed: Corbin Valiente MD at 19:04 EDT Reading Location ID and State: [facility] / [place] Tel , Service support , Assessment & Plan Assessment/Plan (1) Acute biliary pancreatitis: (2) Secondary pulmonary arterial hypertension: PLAN: Plan #Acute gallstone pancreatitis -Gallbladder ultrasound demonstrated multiple gallstones and gallbladder distention to 10.4 cm with no increased wall thickness or pericholecystic fluid but has elevated bili as well as liver function tests and a lipase of 23,197 -Repeat amylase, lipase, ESR, CRP, lactic acid and LDH to calculate Shapleigh score. -CT of the abdomen with acute interstitial edematous pancreatitis -Hematocrit 44.9, BUN 16 with creatinine of 0.96 -N.p.o., continue maintenance fluids, pain control -She will undergo cholecystectomy with intraoperative cholangiograms. Charges/Coding Visit Charges Inpatient E&M: 89758 Init Hosp L3 09/02/22 0740 <Electronically signed by Robinson Mendenhall DO> Cosigner Signature (if applicable): CC: Dr. Fernando Jean-Baptiste MD; Dr. Ella Hinojosa MD; Kenn Beauchamp MD~ Signed [facility] Work Phone: [phone]) [phone] Progress note Author Robinson Mendenhall [facility] September 01, 2022 5:42pm Note Date/Time September 01, 2022 5:4 2pm [facility] Medical Records Department [address] [place] [id number] Progress Note 09/01/22 1740 MR#: [id number] Acct: [id number] Name: KATE OREILLY Rep #:[id number] : 1945 77 From: Robinson Mendenhall DO PCP: Kenn Beauchamp MD Status:ADM IN Location: ID3 [id number] Subjective Subjective Patient underwent unsuccessful cholecystectomy today. She denies any abdominal pain. She denies any nausea, headache or dizziness. Objective Data Objective Data Vital Signs: Vital Signs Temp Pulse Resp BP Pulse Ox O2 Del Method O2 Flow Rate 98.5 F 84 18 118/59 L 96 Nasal Cannula 3 09/01/22 16:15 09/01/22 16:15 09/01/22 16:15 09/01/22 16:15 09/01/22 16:15 09/01/22 16:35 09/01/22 16:35 Oxygen Flow Rate (L/min) 3 Oxygen Delivery Method Nasal Cannula Weight: 221 lb 4.8 oz Body Mass Index (BMI) 34.6 Intake & Output: Intake and Output for Last 24 Hours 08/30/22 08/31/22 09/01/22 23:59 23:59 23:59 Intake Total 3802.5 / 3802.5 1827.5 / 1827.5 Output Total 200 / 200 Balance 3802.5 / 3602.5 1627.5 / 1627.5 Lab / Micro Data Result Diagrams: 08/31/22 06:50 09/01/22 06:30 Labs: Laboratory Results - last 24 hr 09/01/22 06:30: Sodium 144, Potassium 3.4 L, Chloride 114 H, Carbon Dioxide 21.0, Anion Gap 9, BUN 12, Creatinine 0.78, Estim Creat Clear Calc 45.82, Est GFR (MDRD) Af Amer 93, Est GFR (MDRD) Non-Af 77, BUN/Creatinine Ratio 15.5, Glucose 84, Calcium 7.5 L, Total Bilirubin 0.60, AST 109 H, ALT 264 H, Alkaline Phosphatase 122 H, Total Protein 5.8 L, Albumin 2.5 L, Globulin 3.3, Albumin/Globulin Ratio 0.8 L Radiography Diagnostic Testing: Radiology Impression Cholangiogram 09/01/22 10:55 IMPRESSION: 1. Status post intrahepatic cholangiogram without abnormalities 2. Status post cholecystectomy Electronically Signed: Anthony Rocha MD at 13:22 EDT Reading Location ID and State: [address] [place] [address] , Service support , Physical Exam Narrative General: Alert, oriented, no apparent distress HEENT: Atraumatic, normocephalic Eyes: Anicteric, normal conjunctiva, extraocular movements grossly intact Neck: Supple Respiratory: Clear to auscultation bilaterally, normal respiratory effort Cardiovascular: Regular rate and rhythm GI: Tender diffusely but primarily in the epigastric region, no rebound, guarding, rigidity, decreased bowel sounds Extremities: No edema Musculoskeletal: Moving all extremities Neuro: No overt focal neurological deficits Skin: No rashes appreciated Psych: Cooperative Resp normal respiratory effort, no retractions, no use of accessory muscles and clearto auscultation bilaterally Cardio regular rate, regular rhythm, S1 normal heart sound and S2 normal heart sound GI normal to inspection, nondistended, normoactive bowel sounds, soft to palpation,non-tender and non-distended Extremity normal to inspection Assessment & Plan Assessment/Plan (1) Acute biliary pancreatitis: PLAN: Her amylase lipase is decreasing nicely. Recommend continue IV fluids at current rate. Repeat ESR, CRP and amylase and lipase tomorrow. I am okay with advancing her diet as tolerated. (2) Cholelithiasis: PLAN: Status postcholecystectomy today without any problems. Cholangiogram did not show any abnormalities or filling defects in the distal common bile duct. Charges/Coding Visit Charges Inpatient E&M: 39430 [facility] Hosp L3 09/01/22 1742 <Electronically signed by Robinson Mendenhall DO> Robinson Mendenhall DO Cosigner Signature (if applicable): CC: ~ Signed [facility] Work Phone: 1(702) [phone] Coffman [facility] September 01, 2022 3:28pm Note Date/Time September 01, 2022 7:3 3am [facility] Medical Records Department [address] [place] [address] Progress Note - Hospitalist 09/01/22 0731 MR#: [id number] Acct: [id number] Name: KATE OREILLY Rep #:[id number] : 1945 77 From: Tyler Coffman DO PCP: Nito KING,Kenn Status:ADM IN Location: [place] [address] Reason for Visit Reason for Visit: Diagnoses Secondary pulmonary arterial hypertension (08/30/22) Biliary acute pancreatitis without necrosis or infection (08/30/22) Subjective Subjective Feeling groggy postoperative. Objective Data Objective Data Vital Signs: Vital Signs Temp Pulse Resp BP Pulse Ox O2 Del Method 37.4 C H 102 H 18 162/63 H 95 Room Air 09/01/22 06:26 09/01/22 06:26 09/01/22 06:26 09/01/22 06:26 09/01/22 06:26 09/01/22 06:26 Oxygen Delivery Method Room Air Weight: 100.38 kg Body Mass Index (BMI) 34.6 Intake & Output: Intake and Output for Last 24 Hours 08/30/22 08/31/22 09/01/22 23:59 23:59 23:59 Intake Total 3802.5 / 3802.5 1097.5 / 1097.5 Output Total 200 / 200 Balance 3802.5 / 3602.5 897.5 / 897.5 Lab / Micro Data Result Diagrams: 08/31/22 06:50 09/01/22 06:30 Labs: Laboratory Results - last 24 hr 08/31/22 06:50: Sodium 143, Potassium 3.7, Chloride 111 H, Carbon Dioxide 26.0, Anion Gap 6, BUN 11, Creatinine 0.84, Estim Creat Clear Calc 58.61, Est GFR (MDRD) Af Amer 84, Est GFR (MDRD) Non-Af 70, BUN/Creatinine Ratio 13.0, Glucose 110 H, Calcium 7.7 L, Total Bilirubin 1.40 H, AST 387 H, ALT 462 H, Alkaline Phosphatase 140 H, Total Protein 5.7 L, Albumin 2.7 L, Globulin 3.0, Albumin/Globulin Ratio 0.9, TSH 0.89 08/31/22 06:50: ESR 19 08/31/22 06:50: Ferritin 98, C-React Prot Ext Range 32.70 H, Amylase 1296 H, Lipase 14032 H 08/31/22 14:30: PT 14.2, INR 1.1 09/01/22 06:30: Sodium 144, Potassium 3.4 L, Chloride 114 H, Carbon Dioxide 21.0, Anion Gap 9, BUN 12, Creatinine 0.78, Estim Creat Clear Calc 45.82, Est GFR (MDRD) Af Amer 93, Est GFR (MDRD) Non-Af 77, BUN/Creatinine Ratio 15.5, Glucose 84, Calcium 7.5 L, Total Bilirubin 0.60, AST 109 H, ALT 264 H, Alkaline Phosphatase 122 H, Total Protein 5.8 L, Albumin 2.5 L, Globulin 3.3, Albumin/Globulin Ratio 0.8 L Physical Exam Const Constitutional Narrative: Groggy. She easily confused with basic questioning. Resp normal respiratory effort, no retractions, no use of accessory muscles and clearto auscultation bilaterally Cardio regular rate, regular rhythm, S1 normal heart sound and S2 normal heart sound GI normal to inspection, nondistended, normoactive bowel sounds, soft to palpation,non-tender and non-distended Extremity normal to inspection Assessment & Plan Assessment/Plan (1) Acute biliary pancreatitis: PLAN: Acute gallstone pancreatitis -Gallbladder ultrasound demonstrated multiple gallstones and gallbladder distention to 10.4 cm with no increased wall thickness or pericholecystic fluid but has elevated bili as well as liver function tests and a lipase of 23,197 -CT of the abdomen with acute interstitial edematous pancreatitis 09/01: Patient underwent a laparoscopic cholecystectomy with intraoperative cholangiogram. Was having a fever overnight and started on meropenem. Advance diet per general surgery. PLAN: Plan Chronic conditions: * Hypothyroidism-Continue Synthroid daily * SREEKANTH-CPAP nightly * Group 3 pulmonary hypertension-Last echo demonstrated EF of 65% with RVSP estimated to be 40 mmHg-Follows with Dr. Stroud as an outpatient-Is on Lasix twice daily, will hold this given presenting problem and monitor clinically- Continue to assess for ability to DC fluids or for signs and symptoms of overload DVT ppx: Lovenox subq Charges/Coding Visit Charges Inpatient E&M: 79491 Subs Hosp L2 09/01/22 1528 <Electronically signed by Tyler Coffman DO> Cosigner Signature (if applicable): CC: ~ Signed [facility] Work Phone: 1(154) 707-879103-14-2023 Procedure [facility] 09-01-[address] Jean-Baptiste [facility] September 01, 2022 9:41am Note Date/Time September 01, 2022 8:3 7am [facility] Medical Records Department [address] [place] [address] Progress Note - Surgery 09/01/22832 MR#: [id number] Acct: [id number] Name: KATE OREILLY Rep #:[id number] : 1945 77 From: Fernando Tenorio PCP: Nito KING,Kenn Status:ADM IN Location: [place] [id number] Subjective Subjective Patient seen and examined during AM rounds. She reports that she had more pain overnight, but admits that this was primarily due to her difficulty in finding sleep. She happily reports that her fevers are better. Objective Data Objective Data Vital Signs: Vital Signs Temp Pulse Resp BP Pulse Ox O2 Del Method 99.3 F H 102 H 18 162/63 H 95 Room Air 09/01/22 06:26 09/01/22 06:26 09/01/22 06:26 09/01/22 06:26 09/01/22 06:26 09/01/22 06:26 Oxygen Delivery Method Room Air Weight: 221 lb 4.8 oz Body Mass Index (BMI) 34.6 Intake & Output: Intake and Output for Last 24 Hours 08/30/22 08/31/22 09/01/22 23:59 23:59 23:59 Intake Total 3802.5 / 3802.5 1097.5 / 1097.5 Output Total 200 / 200 Balance 3802.5 / 3602.5 897.5 / 897.5 Lab / Micro Data Result Diagrams: 08/31/22 06:50 09/01/22 06:30 Labs: Laboratory Results - last 24 hr 08/31/22 06:50: ESR 19 08/31/22 06:50: Ferritin 98, C-React Prot Ext Range 32.70 H, Amylase 1296 H, Lipase 96832 H 08/31/22 14:30: PT 14.2, INR 1.1 09/01/22 06:30: Sodium 144, Potassium 3.4 L, Chloride 114 H, Carbon Dioxide 21.0, Anion Gap 9, BUN 12, Creatinine 0.78, Estim Creat Clear Calc 45.82, Est GFR (MDRD) Af Amer 93, Est GFR (MDRD) Non-Af 77, BUN/Creatinine Ratio 15.5, Glucose 84, Calcium 7.5 L, Total Bilirubin 0.60, AST 109 H, ALT 264 H, Alkaline Phosphatase 122 H, Total Protein 5.8 L, Albumin 2.5 L, Globulin 3.3, Albumin/Globulin Ratio 0.8 L Physical Exam Const oriented x3 and no apparent distress Resp normal respiratory effort GI GI Narrative: Mildly distended, soft, mildly tender to palpation (rated 2-3 out of 10) and epigastrium, nontender to palpation right upper quadrant Assessment & Plan Assessment/Plan (1) Acute biliary pancreatitis: PLAN: This is a 77-year-old female admitted for acute pancreatitis?believed to be related to a biliary origin given her concurrent elevation of liver enzymes. Patient was stable physical exam after reporting more pain overnight. All of her biochemical indices appear to be trending appropriately. We will therefore plan to proceed to the operating room for laparoscopic cholecystectomy and intraoperative cholangiogram as previously arranged. ? Continue n.p.o. with IV fluid resuscitation (patient's lung history and diuretic dependence should be considered) ? Trend CMP ? Plan for laparoscopic cholecystectomy with IOC (and ERCP if warranted) today 09/01/2022 (hold Lovenox) 09/01/22 0941 <Electronically signed by Fernando Jean-Baptiste MD> Cosigner Signature (if applicable): CC: ~ Signed [facility] Work Phone: [phone]) [phone] Coffman [facility] August 31, 2022 12:43pm Note Date/Time August 31, 2022 7:5 6am [facility] Medical Records Department [address] [place] [address] Progress Note - Hospitalist 08/31/22 0754 MR#: [id number] Acct: [id number] Name: KATE OREILLY Rep #:[id number] : 1945 77 From: Tyler Coffman DO PCP: Nito KING,Kenn Status:ADM IN Location: [place] [address] Reason for Visit Reason for Visit: Diagnoses Secondary pulmonary arterial hypertension (08/30/22) Biliary acute pancreatitis without necrosis or infection (08/30/22) Subjective Subjective Feels better, but still with abdominal pain. Objective Data Objective Data Vital Signs: Vital Signs Temp Pulse Resp BP Pulse Ox O2 Del Method 37.7 C H 80 16 116/68 97 Room Air 08/31/22 03:57 08/31/22 03:57 08/31/22 03:57 08/31/22 03:57 08/31/22 03:57 08/31/22 03:57 Oxygen Delivery Method Room Air Weight: 96.8 kg Body Mass Index (BMI) 31.5 Intake & Output: Intake and Output for Last 24 Hours 08/29/22 08/30/22 08/31/22 22:59 23:59 23:59 Intake Total 840 / 840 Balance 840 / 840 Lab / Micro Data Result Diagrams: 08/31/22 06:50 08/31/22 06:50 Labs: Laboratory Results - last 24 hr 08/30/22 15:28: WBC 7.9, RBC 4.99, Hgb 14.1, Hct 44.9, MCV 90.0, MCH 28.3, MCHC 31.4 L, RDW Std Deviation 44.9 H, RDW Coeff of Rajinder 13.7, Plt Count , Immature Gran % (Auto) 0.400, Neut % (Auto) 69.2, Lymph % (Auto) 24.3, [place] % (Auto) 5.6,Eos % (Auto) 0.1, Baso % (Auto) 0.4, Absolute Neuts (auto) 5.5, Absolute Lymphs (auto) 1.92, Nucleated RBC % 0, Differential Comment SCANNED, Platelet Estimate ADEQUATE 08/30/22 15:28: Sodium Cancelled, Potassium Cancelled, Chloride Cancelled, Carbon Dioxide Cancelled, Anion Gap Cancelled, BUN Cancelled, Creatinine Cancelled, Estim Creat Clear Calc Cancelled, Est GFR (MDRD) Af Amer Cancelled, Est GFR (MDRD) Non-Af Cancelled, BUN/Creatinine Ratio Cancelled, Glucose Cancelled, Calcium Cancelled, Total Bilirubin Cancelled, AST Cancelled, ALT Cancelled, Alkaline Phosphatase Cancelled, Total Protein Cancelled, Albumin Cancelled, Globulin Cancelled, Albumin/Globulin Ratio Cancelled, Lipase Cancelled 08/30/22 16:27: Sodium Cancelled, Potassium Cancelled, Chloride Cancelled, Carbon Dioxide Cancelled, Anion Gap Cancelled, BUN Cancelled, Creatinine Cancelled, Estim Creat Clear Calc Cancelled, Est GFR (MDRD) Af Amer Cancelled, Est GFR (MDRD) Non-Af Cancelled, BUN/Creatinine Ratio Cancelled, Glucose Cancelled, Calcium Cancelled, Total Bilirubin Cancelled, AST Cancelled, ALT Cancelled, Alkaline Phosphatase Cancelled, Total Protein Cancelled, Albumin Cancelled, Globulin Cancelled, Albumin/Globulin Ratio Cancelled, Lipase Cancelled 08/30/22 17:02: Urine Color Yellow, Urine Clarity Clear, Urine pH 8.0, Ur Specific Man 1.015, Urine Protein Negative, Urine Glucose (UA) Normal, UrineKetones Negative, Urine Occult Blood Negative, Urine Nitrite Negative, Urine Bilirubin Negative, Urine Urobilinogen Normal, Ur Leukocyte Esterase 25 H, UrineRBC 0 SEEN, Urine WBC 0 SEEN, Ur Squamous Epith Cells 0 SEEN, Urine Bacteria 0 SEEN, Urine Mucus 0 SEEN 08/30/22 18:25: Sodium 143, Potassium 4.2, Chloride 107, Carbon Dioxide 28.0, Anion Gap 8, BUN 16, Creatinine 0.96, Estim Creat Clear Calc 51.29, Est GFR (MDRD) Af Amer 73, Est GFR (MDRD) Non-Af 60, BUN/Creatinine Ratio 16.7, Glucose 121 H, Calcium 8.2 L, Total Bilirubin 1.40 H, AST 715 H, ALT 566 H, Alkaline Phosphatase 112, Total Protein 6.3 L, Albumin 3.2, Globulin 3.1, Albumin/Globulin Ratio 1.0, Lipase 79650 H 08/31/22 06:50: WBC 7.6, RBC 4.28, Hgb 12.5, Hct 39.3, MCV 91.8, MCH 29.2, MCHC 31.8 L, RDW Std Deviation 46.9 H, RDW Coeff of Rajinder 14.0, Plt Count 169, MPV 11.7, Immature Gran % (Auto) 0.400, Neut % (Auto) 74.2 H, Lymph % (Auto) 19.2, [place] % (Auto) 6.0, Eos % (Auto) 0.1, Baso % (Auto) 0.1, Absolute Neuts (auto) 5.6, Absolute Lymphs (auto) 1.45, Nucleated RBC % 0 Radiography Diagnostic Testing: Radiology Impression Gallbladder Ultrasound 08/30/22 13:42 IMPRESSION: Cholelithiasis with nonspecific distention. No sonographic findings of acute cholecystitis. Enlarged fatty liver. Electronically Signed: Corbin Valiente MD at 17:27 EDT , Chest X-Ray 08/30/22 15:10 IMPRESSION: No radiographic evidence of acute cardiopulmonary disease. Electronically Signed: Corbin Valiente MD at 15:55 EDT , Abdomen/Pelvis CT 08/30/22 17:58 IMPRESSION: Finding consistent with acute interstitial edematous pancreatitis. Electronically Signed: Corbin Valiente MD at 19:04 EDT , Physical Exam Const alert and no apparent distress HEENT head/scalp atraumatic and moist oral mucous membranes Resp normal respiratory effort, no retractions, no use of accessory muscles and clearto auscultation bilaterally Cardio regular rate, regular rhythm, S1 normal heart sound and S2 normal heart sound GI GI Narrative: RUQ and LUQ abdominal pain. some rebound tenderness. Assessment & Plan Assessment/Plan (1) Acute biliary pancreatitis: PLAN: Acute gallstone pancreatitis -Gallbladder ultrasound demonstrated multiple gallstones and gallbladder distention to 10.4 cm with no increased wall thickness or pericholecystic fluid but has elevated bili as well as liver function tests and a lipase of 23,197 -CT of the abdomen with acute interstitial edematous pancreatitis -Hematocrit 44.9, BUN 16 with creatinine of 0.96 -N.p.o., continue maintenance fluids, pain control -Hold Lasix -No signs or symptoms of infection, will hold on prophylactic antibiotics -plan for lap lissette with cholangiogram. GI to be available for ERCP if needed onthe PLAN: Plan Chronic conditions: * Hypothyroidism-Continue Synthroid daily * SREEKANTH-CPAP nightly * Group 3 pulmonary hypertension-Last echo demonstrated EF of 65% with RVSP ros mated to be 40 mmHg-Follows with Dr. Stroud as an outpatient-Is on Lasix twice daily, will hold this given presenting problem and monitor clinically- Continue to assess for ability to DC fluids or for signs and symptoms of overload DVT ppx: Lovenox subq Charges/Coding Visit Charges Inpatient E&M: 55297 Subs Hosp L2 08/31/22 1242 <Electronically signed by Tyler Jopperi DO> Cosigner Signature (if applicable): CC: ~ Signed [facility] Work Phone: [phone]) 128-892703-13-[address] Jean-Baptiste [facility] August 31, 2022 11:01am Note Date/Time August 31, 2022 10: 04am [facility] Medical Records Department [address] [place] [address] Consultation - Surgical 08/31/22 1004 MR#: [id number] Acct: [id number] Name: KATE OREILLY Rep #:[id number] : 1945 77 From: Fernando Tenorio PCP: Kenn Beauchamp MD Status:ADM [facility] Assessment & Plan Assessment/Plan (1) Acute biliary pancreatitis: PLAN: This is a 77-year-old female admitted for acute pancreatitis?believed to be related to a biliary origin given her concurrent elevation of liver enzymes. Significantly, however, imaging did not demonstrate ductal dilatation. Patient has no history of pancreatitis. She reports that her abdominal discomfort is already improved since it began 2 days ago. Some of her laboratory work is spontaneously improved today, but her alkaline phosphatase remains elevated. Inconversations with gastroenterology, they would be inclined to perform an ERCP if an intraoperative cholangiogram were positive. Therefore, I have recommendedthe patient that we proceed for laparoscopic cholecystectomy with intraoperativecholangiogram and GI will be on hand to proceed with ERCP under the same sedation if warranted. My reasonings for this recommendation were also given the patient including trying to mitigate her risk for recurrent pancreatitis?whichif due to cholelithiasis would be at least 25% at 1 year. Patient provides her verbal consent, but states that her daughter may have some questions so I informed her that I would plan to return this afternoon. ? Continue n.p.o. with IV fluid resuscitation (patient's lung history and diuretic dependence should be considered) ? Trend CMP ? Plan for laparoscopic cholecystectomy with IOC (and ERCP if warranted) tomorrow 09/01/2022 HPI Consult Data Date of Consult: 08/31/22 HPI Narrative Reason for Consultation: Pancreatitis HPI Narrative: KATE OREILLY, is a 77 F who presents to [facility] with complaints of acute onset upper abdominal pain that began the evening of 08/29/2022. Patient states the pain was so intense that she did not sleep at all. She denied any fevers or chills but did confirm nausea. She states she initially believed that her symptoms were related to the chili she had eaten previously. However, when the pain persisted despite her trying to walk it off she decided to seek evaluation. ER work-up was notable for CT imaging that showed evidence of acute interstitial pancreatitis, but no abnormalities of the gallbladder and no intra or extrahepatic biliary ductal dilation. A right upperquadrant ultrasound had preceded the CT imaging and was unremarkable for any evidence of cholecystitis, but did confirm cholelithiasis. Biochemistries demonstrated transaminitis, hyperbilirubinemia, and an elevated lipase. Patient reports today that her abdominal pain is significantly improved and hardly present if she does not move. We reviewed her past medical and past surgical history. She confirms that she has never had pancreatitis previously. She also confirms that her only prior abdominal surgery was a tubal ligation remotely. Concerning her family history, patient admits that some of this history is unclear to her due to lack of proximity with her siblings, but she is not able to exclude a possible diagnosis of pancreatic cancer in 1 sister. [facility] Medical History Diverticulosis Essential hypertension Hyperlipidemia Hypothyroidism Meningioma, cerebral Obesity Obstructive sleep apnea Secondary pulmonary arterial hypertension Trigeminal neuralgia Home Medications pregabalin 100 mg capsule (Lyrica) 100 mg PO TID 05/12/21 [History Last Taken Unknown] montelukast 10 mg tablet (Singulair) 10 mg PO QHS 08/13/21 [History Last Taken Unknown] multivitamin (Daily Multi-Vitamin tablet) 1 tab PO DAILY 08/13/21 [History Last Taken Unknown] furosemide 40 mg tablet (Lasix) 40 mg PO BID 11/11/21 [History Last Taken Unknown] levothyroxine 100 mcg tablet 100 mcg PO DAILY 11/11/21 [History Last Taken Unknown] losartan 100 mg tablet 100 mg PO DAILY #90 tabs 03/30/22 [Rx Last Taken Unknown] Allergy/AdvReac Type Severity Reaction Status Date / Time amoxicillin Allergy rash Verified 08/30/22 13:30 carbamazepine Allergy rash Verified 08/30/22 13:30 rofecoxib [From Vioxx] Allergy rash Verified 08/30/22 13:30 acetaminophen [From Percocet] AdvReac Vomiting Verified 08/30/22 13:30 codeine AdvReac vomiting Verified 08/30/22 13:30 fentanyl AdvReac Vomiting Verified 08/30/22 13:30 gabapentin [From Neurontin] AdvReac intolerance Verified 08/30/22 13:30 hydrocodone [From Vicodin] AdvReac Vomiting Verified 08/30/22 13:30 meperidine [From Demerol] AdvReac Vomiting Verified 08/30/22 13:30 oxycodone [From Percocet] AdvReac Vomiting Verified 08/30/22 13:30 topiramate [From Topamax] AdvReac intolerance Verified 08/30/22 13:30 tramadol AdvReac Vomiting Verified 08/30/22 13:30 Family History (Reviewed 05/21/22 @ 09:26 by Sarah Kasper DIGITAL WATCH ASSEMBLER, DIGITAL WATCH ASSEMBLER-C) Mother CVA (cerebral vascular accident) Heart disease PPM Father Heart disease valve replacement, PPM Brother Heart disease Brother Heart disease Sister Heart disease Sister Colon cancer Sister Breast cancer Daughter Breast cancer Surgical History History of cataract surgery History of colonoscopy History of craniotomy (2010) History of right and left heart catheterization (09/01/21) TN (trigeminal neuralgia) (2019) Social History Smoking Status: Never smoker alcohol intake: never substance use type: does not use caffeine: Yes Type: coffee Number of servings: 4 Physical Exam Const alert and oriented x3 Nutritional Appearance: obese GI GI Narrative: Mildly distended, no scars, soft, tender to palpation in the left lower quadrant, epigastrium, and right upper quadrant. Reveles sign is negative. Lab / Micro Data Result Diagrams: 08/31/22 06:50 08/31/22 06:50 Labs: Laboratory Results - last 24 hr 08/30/22 15:28: WBC 7.9, RBC 4.99, Hgb 14.1, Hct 44.9, MCV 90.0, MCH 28.3, MCHC 31.4 L, RDW Std Deviation 44.9 H, RDW Coeff of Rajinder 13.7, Plt Count , Immature Gran % (Auto) 0.400, Neut % (Auto) 69.2, Lymph % (Auto) 24.3, [place] % (Auto) 5.6,Eos % (Auto) 0.1, Baso % (Auto) 0.4, Absolute Neuts (auto) 5.5, Absolute Lymphs (auto) 1.92, Nucleated RBC % 0, Differential Comment SCANNED, Platelet Estimate ADEQUATE 08/30/22 15:28: Sodium Cancelled, Potassium Cancelled, Chloride Cancelled, Carbon Dioxide Cancelled, Anion Gap Cancelled, BUN Cancelled, Creatinine Cancelled, Estim Creat Clear Calc Cancelled, Est GFR (MDRD) Af Amer Cancelled, Est GFR (MDRD) Non-Af Cancelled, BUN/Creatinine Ratio Cancelled, Glucose Cancelled, Calcium Cancelled, Total Bilirubin Cancelled, AST Cancelled, ALT Cancelled, Alkaline Phosphatase Cancelled, Total Protein Cancelled, Albumin Cancelled, Globulin Cancelled, Albumin/Globulin Ratio Cancelled, Lipase Cancelled 08/30/22 16:27: Sodium Cancelled, Potassium Cancelled, Chloride Cancelled, Carbon Dioxide Cancelled, Anion Gap Cancelled, BUN Cancelled, Creatinine Cancelled, Estim Creat Clear Calc Cancelled, Est GFR (MDRD) Af Amer Cancelled, Est GFR (MDRD) Non-Af Cancelled, BUN/Creatinine Ratio Cancelled, Glucose Cancelled, Calcium Cancelled, Total Bilirubin Cancelled, AST Cancelled, ALT Cancelled, Alkaline Phosphatase Cancelled, Total Protein Cancelled, Albumin Cancelled, Globulin Cancelled, Albumin/Globulin Ratio Cancelled, Lipase Cancelled 08/30/22 17:02: Urine Color Yellow, Urine Clarity Clear, Urine pH 8.0, Ur Specific Man 1.015, Urine Protein Negative, Urine Glucose (UA) Normal, UrineKetones Negative, Urine Occult Blood Negative, Urine Nitrite Negative, Urine Bilirubin Negative, Urine Urobilinogen Normal, Ur Leukocyte Esterase 25 H, UrineRBC 0 SEEN, Urine WBC 0 SEEN, Ur Squamous Epith Cells 0 SEEN, Urine Bacteria 0 SEEN, Urine Mucus 0 SEEN 08/30/22 18:25: Sodium 143, Potassium 4.2, Chloride 107, Carbon Dioxide 28.0, Anion Gap 8, BUN 16, Creatinine 0.96, Estim Creat Clear Calc 51.29, Est GFR (MDRD) Af Amer 73, Est GFR (MDRD) Non-Af 60, BUN/Creatinine Ratio 16.7, Glucose 121 H, Calcium 8.2 L, Total Bilirubin 1.40 H, AST 715 H, ALT 566 H, Alkaline Phosphatase 112, Total Protein 6.3 L, Albumin 3.2, Globulin 3.1, Albumin/Globulin Ratio 1.0, Lipase 57792 H 08/31/22 06:50: WBC 7.6, RBC 4.28, Hgb 12.5, Hct 39.3, MCV 91.8, MCH 29.2, MCHC 31.8 L, RDW Std Deviation 46.9 H, RDW Coeff of Rajinder 14.0, Plt Count 169, MPV 11.7, Immature Gran % (Auto) 0.400, Neut % (Auto) 74.2 H, Lymph % (Auto) 19.2, [place] % (Auto) 6.0, Eos % (Auto) 0.1, Baso % (Auto) 0.1, Absolute Neuts (auto) 5.6, Absolute Lymphs (auto) 1.45, Nucleated RBC % 0 08/31/22 06:50: Sodium 143, Potassium 3.7, Chloride 111 H, Carbon Dioxide 26.0, Anion Gap 6, BUN 11, Creatinine 0.84, Estim Creat Clear Calc 58.61, Est GFR (MDRD) Af Amer 84, Est GFR (MDRD) Non-Af 70, BUN/Creatinine Ratio 13.0, Glucose 110 H, Calcium 7.7 L, Total Bilirubin 1.40 H, AST 387 H, ALT 462 H, Alkaline Phosphatase 140 H, Total Protein 5.7 L, Albumin 2.7 L, Globulin 3.0, Albumin/Globulin Ratio 0.9, TSH 0.89 Radiology Impression Gallbladder Ultrasound 08/30/22 13:42 IMPRESSION: Cholelithiasis with nonspecific distention. No sonographic findings of acute cholecystitis. Enlarged fatty liver. Electronically Signed: Corbin Valiente MD at 17:27 EDT , Chest X-Ray 08/30/22 15:10 IMPRESSION: No radiographic evidence of acute cardiopulmonary disease. Electronically Signed: Corbin Valiente MD at 15:55 EDT , Abdomen/Pelvis CT 08/30/22 17:58 IMPRESSION: Finding consistent with acute interstitial edematous pancreatitis. Electronically Signed: Corbin Valiente MD at 19:04 EDT , Charges/Coding Visit Charges Inpatient E&M: 55278 Init Hosp L2 08/31/22 1101 <Electronically signed by Fernando Jean-Baptiste MD> Cosigner Signature (if applicable): CC: Dr. Tyler Coffman DO; Dr. Fernando Jean-Baptiste MD; Dr. Ella Hinojosa MD; Kenn Beauchamp MD~ Signed [facility] Work Phone: 1(299) 200-418003-12-2023 History and physical note Author Dr. Hinojosa [facility] August 30, 2022 9:14pm Note Date/Time August 30, 2022 9:1 4pm [facility] Medical Records Department [address] [place] [address] H&P Exam - Hospitalist 08/30/222055 MR#: [id number] Acct: [id number] Name: KATE OREILLY Rep #:[id number] : 1945 77 From: Ella Hinojosa MD PCP: Kenn Beauchamp MD Status:ADM IN Location: [facility] [id number] HPI - General General Date of Admission: 08/30/22 Date of Service: 08/30/22 Chief Complaint: Abd pain HPI Narrative KATE OREILLY, is a 77 F with a history of SREEKANTH with CPAP, pulmonary arterial hypertension, hypertension, cholelithiasis who presented to [facility] 08/30/2022 with 1 day of epigastric pain. In ED she was found to have elevated bilirubin as well as liver enzymes and a lipase of 23,197. GI and surgery contacted who recommended admission and she will be seen in consult. Hospitalist consulted for admission. Patient seen with daughter at bedside. She reports she was in her usual health until last night when she climbed up herstairs and lay down in bed when she developed significant epigastric pain. Had difficulty eating and drinking and has had some gagging and nausea and the pain did not improve prompting ED visit. Had 3 small bowel movements yesterday without relief of pain. Denies having this happen previously. Denies alcohol use. Reports her pain is not worsening and might be slightly better though still significant. Has chronic shortness of breath and follows with Dr. Cruz does not feel this is changed, did not endorse any other acute complaints atthis time. [facility] Medical History Diverticulosis Essential hypertension Hyperlipidemia Hypothyroidism Meningioma, cerebral Obesity Obstructive sleep apnea Secondary pulmonary arterial hypertension Trigeminal neuralgia Home Medications pregabalin 100 mg capsule (Lyrica) 100 mg PO TID 05/12/21 [History Last Taken Unknown] montelukast 10 mg tablet (Singulair) 10 mg PO QHS 08/13/21 [History Last Taken Unknown] multivitamin (Daily Multi-Vitamin tablet) 1 tab PO DAILY 08/13/21 [History Last Taken Unknown] furosemide 40 mg tablet (Lasix) 40 mg PO BID 11/11/21 [History Last Taken Unknown] levothyroxine 100 mcg tablet 100 mcg PO DAILY 11/11/21 [History Last Taken Unknown] losartan 100 mg tablet 100 mg PO DAILY #90 tabs 03/30/22 [Rx Last Taken Unknown] Allergy/AdvReac Type Severity Reaction Status Date / Time amoxicillin Allergy rash Verified 08/30/22 13:30 carbamazepine Allergy rash Verified 08/30/22 13:30 rofecoxib [From Vioxx] Allergy rash Verified 08/30/22 13:30 acetaminophen [From Percocet] AdvReac Vomiting Verified 08/30/22 13:30 codeine AdvReac vomiting Verified 08/30/22 13:30 fentanyl AdvReac Vomiting Verified 08/30/22 13:30 gabapentin [From Neurontin] AdvReac intolerance Verified 08/30/22 13:30 hydrocodone [From Vicodin] AdvReac Vomiting Verified 08/30/22 13:30 meperidine [From Demerol] AdvReac Vomiting Verified 08/30/22 13:30 oxycodone [From Percocet] AdvReac Vomiting Verified 08/30/22 13:30 topiramate [From Topamax] AdvReac intolerance Verified 08/30/22 13:30 tramadol AdvReac Vomiting Verified 08/30/22 13:30 Family History (Reviewed 05/21/22 @ 09:26 by Sarah Kasper DIGITAL WATCH ASSEMBLER, DIGITAL WATCH ASSEMBLER-C) Mother CVA (cerebral vascular accident) Heart disease PPM Father Heart disease valve replacement, PPM Brother Heart disease Brother Heart disease Sister Heart disease Sister Colon cancer Sister Breast cancer Daughter Breast cancer Surgical History (Reviewed 05/21/22 @ 09:26 by Sarah Kasper DIGITAL WATCH ASSEMBLER, DIGITAL WATCH ASSEMBLER-C) History of cataract surgery History of colonoscopy History of craniotomy (2010) History of right and left heart catheterization (09/01/21) TN (trigeminal neuralgia) (2019) Social History Smoking Status: Never smoker alcohol intake: never substance use type: does not use caffeine: Yes Type: coffee Number of servings: 4 ROS ROS Narrative General: Denies fever or chills HENT: Denies headache EYES: Did not endorse acute changes in vision Resp: Chronic shortness of breath Cardiac: Denies chest pain GI: Does have abdominal pain and epigastric, 3 small bowel movements yesterday, no diarrhea : Denies changes in urination Extremity: Denies any changes in swelling MSK: Feels generally unwell, has some chronic back pain Neuro: Denies any numbness, denies tingling, has chronic trigeminal pain Heme: Denies any bleeding or bruising Skin: Denies rashes Psychiatric: No complaints voiced Vital Signs Vital Signs Vital Signs: 08/30/22 13:07 08/30/22 13:30 08/30/22 17:16 Temperature 97.2 F L 97.6 F L Temperature Source Temporal Temporal Pulse Rate 117 H 100 78 Respiratory Rate 18 18 16 Blood Pressure 181/79 H 158/79 H 131/68 H Blood Pressure Mean 113 105 89 Pulse Ox 98 98 96 Oxygen Delivery Method Room Air Room Air Room Air 08/30/22 19:08 Temperature Temperature Source Pulse Rate Respiratory Rate Blood Pressure 122/59 H Blood Pressure Mean 80 Pulse Ox Oxygen Delivery Method Weight Weight: 98.067 kg Body Mass Index (BMI) 31.9 Physical Exam Narrative General: Alert, oriented, no apparent distress HEENT: Atraumatic, normocephalic Eyes: Anicteric, normal conjunctiva, extraocular movements grossly intact Neck: Supple Respiratory: Clear to auscultation bilaterally, normal respiratory effort Cardiovascular: Regular rate and rhythm GI: Tender diffusely but primarily in the epigastric region, no rebound, guarding, rigidity, decreased bowel sounds Extremities: No edema Musculoskeletal: Moving all extremities Neuro: No overt focal neurological deficits Skin: No rashes appreciated Psych: Cooperative Results Lab / Micro Data Result Diagrams: 08/30/22 15:28 08/30/22 18:25 Labs: Laboratory Results - last 24 hr 08/30/22 15:28: WBC 7.9, RBC 4.99, Hgb 14.1, Hct 44.9, MCV 90.0, MCH 28.3, MCHC 31.4 L, RDW Std Deviation 44.9 H, RDW Coeff of Rajinder 13.7, Plt Count , Immature Gran % (Auto) 0.400, Neut % (Auto) 69.2, Lymph % (Auto) 24.3, [place] % (Auto) 5.6,Eos % (Auto) 0.1, Baso % (Auto) 0.4, Absolute Neuts (auto) 5.5, Absolute Lymphs (auto) 1.92, Nucleated RBC % 0, Differential Comment SCANNED, Platelet Estimate ADEQUATE 08/30/22 15:28: Sodium Cancelled, Potassium Cancelled, Chloride Cancelled, Carbon Dioxide Cancelled, Anion Gap Cancelled, BUN Cancelled, Creatinine Cancelled, Estim Creat Clear Calc Cancelled, Est GFR (MDRD) Af Amer Cancelled, Est GFR (MDRD) Non-Af Cancelled, BUN/Creatinine Ratio Cancelled, Glucose Cancelled, Calcium Cancelled, Total Bilirubin Cancelled, AST Cancelled, ALT Cancelled, Alkaline Phosphatase Cancelled, Total Protein Cancelled, Albumin Cancelled, Globulin Cancelled, Albumin/Globulin Ratio Cancelled, Lipase Cancelled 08/30/22 16:27: Sodium Cancelled, Potassium Cancelled, Chloride Cancelled, Carbon Dioxide Cancelled, Anion Gap Cancelled, BUN Cancelled, Creatinine Cancelled, Estim Creat Clear Calc Cancelled, Est GFR (MDRD) Af Amer Cancelled, Est GFR (MDRD) Non-Af Cancelled, BUN/Creatinine Ratio Cancelled, Glucose Cancelled, Calcium Cancelled, Total Bilirubin Cancelled, AST Cancelled, ALT Cancelled, Alkaline Phosphatase Cancelled, Total Protein Cancelled, Albumin Cancelled, Globulin Cancelled, Albumin/Globulin Ratio Cancelled, Lipase Cancelled 08/30/22 17:02: Urine Color Yellow, Urine Clarity Clear, Urine pH 8.0, Ur Specific Man 1.015, Urine Protein Negative, Urine Glucose (UA) Normal, UrineKetones Negative, Urine Occult Blood Negative, Urine Nitrite Negative, Urine Bilirubin Negative, Urine Urobilinogen Normal, Ur Leukocyte Esterase 25 H, UrineRBC 0 SEEN, Urine WBC 0 SEEN, Ur Squamous Epith Cells 0 SEEN, Urine Bacteria 0 SEEN, Urine Mucus 0 SEEN 08/30/22 18:25: Sodium 143, Potassium 4.2, Chloride 107, Carbon Dioxide 28.0, Anion Gap 8, BUN 16, Creatinine 0.96, Estim Creat Clear Calc 51.29, Est GFR (MDRD) Af Amer 73, Est GFR (MDRD) Non-Af 60, BUN/Creatinine Ratio 16.7, Glucose 121 H, Calcium 8.2 L, Total Bilirubin 1.40 H, AST 715 H, ALT 566 H, Alkaline Phosphatase 112, Total Protein 6.3 L, Albumin 3.2, Globulin 3.1, Albumin/Globulin Ratio 1.0, Lipase 26044 H Radiology Impression Gallbladder Ultrasound 08/30/22 13:42 IMPRESSION: Cholelithiasis with nonspecific distention. No sonographic findings of acute cholecystitis. Enlarged fatty liver. Electronically Signed: Corbin Valiente MD at 17:27 EDT , Chest X-Ray 08/30/22 15:10 IMPRESSION: No radiographic evidence of acute cardiopulmonary disease. Electronically Signed: Corbin Valiente MD at 15:55 EDT , Abdomen/Pelvis CT 08/30/22 17:58 IMPRESSION: Finding consistent with acute interstitial edematous pancreatitis. Electronically Signed: Corbin Valiente MD at 19:04 EDT Reading Location ID and State: [facility] [place] Tel , Service support , Assessment & Plan Assessment/Plan (1) Acute biliary pancreatitis: (2) Secondary pulmonary arterial hypertension: PLAN: Plan #Acute gallstone pancreatitis -Gallbladder ultrasound demonstrated multiple gallstones and gallbladder distention to 10.4 cm with no increased wall thickness or pericholecystic fluid but has elevated bili as well as liver function tests and a lipase of 23,197 -CT of the abdomen with acute interstitial edematous pancreatitis -Hematocrit 44.9, BUN 16 with creatinine of 0.96 -N.p.o., continue maintenance fluids, pain control -Hold Lasix -GI and surgery consults -No signs or symptoms of infection, will hold on prophylactic antibiotics #Hypothyroidism -Continue Synthroid daily #SREEKANTH/secondary pulmonary arterial hypertension -CPAP nightly -Last echo demonstrated EF of 65% with RVSP estimated to be 40 mmHg -Follows with Dr. Stroud as an outpatient -Is on Lasix twice daily, will hold this given presenting problem and monitor clinically -Continue to assess for ability to DC fluids or for signs and symptoms of overload #DVT ppx: Lovenox subq Ella Hinojosa MD Time spent in the patient's overall evaluation,decision-making process, review of diagnostic data, adjustment of management, discussion with other providers, nursing nursing and ancillary staff involved in patient's care documentation, 60Minutes Charges/Coding Visit Charges Inpatient E&M: 36407 Init Hosp L2 08/30/224 <Electronically signed by Ella Hinojosa MD> Cosigner Signature (if applicable): CC: Dr. Ella Hinojosa MD; Kenn Beauchamp MD~ Signed [facility] Work Phone: 1(702) 177-892503-12-[address] Alvarado [facility] August 30, 2022 7:44pm Note Date/Time August 30, 2022 1:4 7pm [facility] Medical Records Department [address] [place] [id number] Emergency Department Summary 08/30/22 MR#: [id number] Acct: [id number] Name: KATE OREILLY Rep #:[id number] : 1945 77 From: Nicanor Alvarado MD PCP: Nito KING,Kenn Status:REG ER Location: ED HPI HPI - GI History of Present Illness Chief Complaint: Abd Pain Informant: patient Abdominal Pain/Flank Pain Onset: Yesterday Context: Gradual Onset (about 2 hrs after eating chili for dinner) Timing: Continuous Quality: Aching Location: - (across upper abd) Current Severity: Severe Maximum Severity: Severe Worsened by: Nothing Relieved by: Nothing Nausea/Vomiting/Emesis GI Symptom: Positive for Nausea and Vomiting Onset: Today Diarrhea/Melena/Hematochezia GI Symptom: Negative for Diarrhea, Melena or Hematochezia Associated Symptoms Associated Symptoms: Negative for Dysuria, Frequency or Hematuria Narrative Narrative: Patient ate chili for dinner last night and a couple hours later started gettingdiffuse upper abdominal pain that has been worsening, it is not necessarily colicky, she has had nausea and vomiting. No history of any abdominal surgeriesin the past. 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 It is a little more uncomfortable to take deep breaths but she does not have lateralizing pain with doing so nor does she have discomfort in her chest or back. The pain radiates in a bandlike distribution around to her sides. No lower abdominal pain. No distention, she states her abdomen is its usual size. [facility] Medical History Diverticulosis Essential hypertension Hyperlipidemia Hypothyroidism Meningioma, cerebral Obesity Obstructive sleep apnea Secondary pulmonary arterial hypertension Trigeminal neuralgia Home Medications pregabalin 100 mg capsule (Lyrica) 100 mg PO TID 05/12/21 [History Last Taken Unknown] montelukast 10 mg tablet (Singulair) 10 mg PO QHS 08/13/21 [History Last Taken Unknown] multivitamin (Daily Multi-Vitamin tablet) 1 tab PO DAILY 08/13/21 [History Last Taken Unknown] furosemide 40 mg tablet (Lasix) 40 mg PO BID 11/11/21 [History Last Taken Unknown] levothyroxine 100 mcg tablet 100 mcg PO DAILY 11/11/21 [History Last Taken Unknown] losartan 100 mg tablet 100 mg PO DAILY #90 tabs 03/30/22 [Rx Last Taken Unknown] Allergy/AdvReac Type Severity Reaction Status Date / Time amoxicillin Allergy rash Verified 08/30/22 13:30 carbamazepine Allergy rash Verified 08/30/22 13:30 rofecoxib [From Vioxx] Allergy rash Verified 08/30/22 13:30 acetaminophen [From Percocet] AdvReac Vomiting Verified 08/30/22 13:30 codeine AdvReac vomiting Verified 08/30/22 13:30 fentanyl AdvReac Vomiting Verified 08/30/22 13:30 gabapentin [From Neurontin] AdvReac intolerance Verified 08/30/22 13:30 hydrocodone [From Vicodin] AdvReac Vomiting Verified 08/30/22 13:30 meperidine [From Demerol] AdvReac Vomiting Verified 08/30/22 13:30 oxycodone [From Percocet] AdvReac Vomiting Verified 08/30/22 13:30 topiramate [From Topamax] AdvReac intolerance Verified 08/30/22 13:30 tramadol AdvReac Vomiting Verified 08/30/22 13:30 Family History Mother CVA (cerebral vascular accident) Heart disease PPM Father Heart disease valve replacement, PPM Brother Heart disease Brother Heart disease Sister Heart disease Sister Colon cancer Sister Breast cancer Daughter Breast cancer Surgical History History of cataract surgery History of colonoscopy History of craniotomy (2010) History of right and left heart catheterization (09/01/21) TN (trigeminal neuralgia) (2019) Social History Smoking Status: Never smoker alcohol intake: never substance use type: does not use caffeine: Yes Type: coffee Number of servings: 4 ROS ROS ED Constitutional Constitutional ED: Denies chills or fever(s) Eyes Eyes: Denies change in vision or diplopia ENT ENT ED: Denies rhinorrhea or sore throat Cardiovascular Cardiovascular: Denies chest pain or palpitations Respiratory/Chest Respiratory/Chest: Reports dyspnea on exertion; Denies cough or dyspnea Gastrointestinal Gastrointestinal: Reports as per HPI, abdominal pain, nausea and vomiting; Denies diarrhea Genitourinary Genitourinary ED: Denies dysuria or hematuria Musculoskeletal Musculoskeletal: Denies back pain or neck pain Integumentary Denies abscess or rash Neurologic Neurologic: Denies headache(s), paresthesias or weakness Psychiatric Psychiatric: Denies anxiety or suicidal thoughts EXAM Physical Exam Const Vital Signs: 08/30/22 13:07 08/30/22 13:30 08/30/22 17:16 Temperature 97.2 F L 97.6 F L Temperature Source Temporal Temporal Pulse Rate 117 H 100 78 Respiratory Rate 18 18 16 Blood Pressure 181/79 H 158/79 H 131/68 H Blood Pressure Mean 113 105 89 Pulse Ox 98 98 96 Oxygen Delivery Method Room Air Room Air Room Air 08/30/22 19:08 Temperature Temperature Source Pulse Rate Respiratory Rate Blood Pressure 122/59 H Blood Pressure Mean 80 Pulse Ox Oxygen Delivery Method Positive well nourished and well developed General Appearance ED: well developed and NAD HEENT Reports moist mucous membranes normocephalic and atraumatic Eyes PERRL and EOMs intact bilaterally Neck full ROM and supple Resp normal respiratory effort and clear to auscultation bilaterally Cardio regular rate, regular rhythm and no murmurs GI non-distended GI Narrative: Abdominal obesity. Very tender in both right upper and left upper quadrants less in the epigastrium. No guarding or rebound. No tenderness elsewhere. Auscultation: normoactive bowel sounds Palpation: soft Back/Spine no CVA tenderness General Back: other FROM Extremity normal to inspection General Extremety ED: Negative for edema, pulses abnormal or tenderness General Extremity: Negative for edema or pulses abnormal Neuro oriented x3, CN's II-XII intact bilaterally and no sensory deficits noted Sensorium / Orientation: awake and alert Motor Exam: strength 5/5 throughout Skin no rashes or lesions noted and no wounds MDM MDM MDM Narrative Medical decision making narrative: Concern is for early acute cholecystitis in this 77-year-old female who has never had any abdominal surgeries. Also in the differential is a perforated viscus although less likely. She has had no hematemesis. I did obtain a portable chest x-ray to evaluate for free air, on my interpretation there is none, and she has no other acute cardiopulmonary abnormality on the chest x-ray,chronic changes are noted. Labs took time. Patient is a very difficult stick, nurses were unable to get a small IV in her right shoulder, but after trying approximately 12 times, they ceased further attempts. I did femoral stick for blood see the procedure note. Labs are noted. I obtained a CT as well, I saw the images and agree with the radiologist interpretation, same with the right upper quadrant ultrasound. Not able to rule out choledocholithiasis with the labs, so I am giving her a dose of cefuroxime since she has a history of penicillin allergy and plan is admission. Lab Data Attestation: I reviewed the patient's lab results. Labs: Laboratory Results - last 24 hr 08/30/22 08/30/22 08/30/22 15:28 15:28 16:27 WBC 7.9 RBC 4.99 Hgb 14.1 Hct 44.9 MCV 90.0 MCH 28.3 MCHC 31.4 L RDW Std Deviation 44.9 H RDW Coeff of Rajinder 13.7 Plt Count Immature Gran % (Auto) 0.400 Neut % (Auto) 69.2 Lymph % (Auto) 24.3 [place] % (Auto) 5.6 Eos % (Auto) 0.1 Baso % (Auto) 0.4 Absolute Neuts (auto) 5.5 Absolute Lymphs (auto) 1.92 Nucleated RBC % 0 Differential Comment SCANNED Platelet Estimate ADEQUATE Sodium Cancelled Cancelled Potassium Cancelled Cancelled Chloride Cancelled Cancelled Carbon Dioxide Cancelled Cancelled Anion Gap Cancelled Cancelled BUN Cancelled Cancelled Creatinine Cancelled Cancelled Estim Creat Clear Calc Cancelled Cancelled Est GFR (MDRD) Af Amer Cancelled Cancelled Est GFR (MDRD) Non-Af Cancelled Cancelled BUN/Creatinine Ratio Cancelled Cancelled Glucose Cancelled Cancelled Calcium Cancelled Cancelled Total Bilirubin Cancelled Cancelled AST Cancelled Cancelled ALT Cancelled Cancelled Alkaline Phosphatase Cancelled Cancelled Total Protein Cancelled Cancelled Albumin Cancelled Cancelled Globulin Cancelled Cancelled Albumin/Globulin Ratio Cancelled Cancelled Lipase Cancelled Cancelled Urine Color Urine Clarity Urine pH Ur Specific Man Urine Protein Urine Glucose (UA) Urine Ketones Urine Occult Blood Urine Nitrite Urine Bilirubin Urine Urobilinogen Ur Leukocyte Esterase Urine RBC Urine WBC Ur Squamous Epith Cells Urine Bacteria Urine Mucus 08/30/22 08/30/22 17:02 18:25 WBC RBC Hgb Hct MCV MCH MCHC RDW Std Deviation RDW Coeff of Rajinder Plt Count Immature Gran % (Auto) Neut % (Auto) Lymph % (Auto) [place] % (Auto) Eos % (Auto) Baso % (Auto) Absolute Neuts (auto) Absolute Lymphs (auto) Nucleated RBC % Differential Comment Platelet Estimate Sodium 143 Potassium 4.2 Chloride 107 Carbon Dioxide 28.0 Anion Gap 8 BUN 16 Creatinine 0.96 Estim Creat Clear Calc 51.29 Est GFR (MDRD) Af Amer 73 Est GFR (MDRD) Non-Af 60 BUN/Creatinine Ratio 16.7 Glucose 121 H Calcium 8.2 L Total Bilirubin 1.40 H AST 715 H ALT 566 H Alkaline Phosphatase 112 Total Protein 6.3 L Albumin 3.2 Globulin 3.1 Albumin/Globulin Ratio 1.0 Lipase 83138 H Urine Color Yellow Urine Clarity Clear Urine pH 8.0 Ur Specific Man 1.015 Urine Protein Negative Urine Glucose (UA) Normal Urine Ketones Negative Urine Occult Blood Negative Urine Nitrite Negative Urine Bilirubin Negative Urine Urobilinogen Normal Ur Leukocyte Esterase 25 H Urine RBC 0 SEEN Urine WBC 0 SEEN Ur Squamous Epith Cells 0 SEEN Urine Bacteria 0 SEEN Urine Mucus 0 SEEN Radiography Diagnostic Testing: Clinical Impression(s) from Imaging Studies Gallbladder Ultrasound 08/30/22 13:42 IMPRESSION: Cholelithiasis with nonspecific distention. No sonographic findings of acute cholecystitis. Enlarged fatty liver. Electronically Signed: Corbin Valiente MD at 17:27 EDT , Chest X-Ray 08/30/22 15:10 IMPRESSION: No radiographic evidence of acute cardiopulmonary disease. Electronically Signed: Corbin Valiente MD at 15:55 EDT , Abdomen/Pelvis CT 08/30/22 17:58 IMPRESSION: Finding consistent with acute interstitial edematous pancreatitis. Electronically Signed: Corbin Valiente MD at 19:04 EDT , Management Discussion w/another healthcare provider: Hospitalist and Holistic Health Practitioner (Dr. Wesley, Dr. Jean-Baptiste surgery) Procedures Other Procedures Procedure(s): Right femoral venipuncture for blood sampling/labs: Via ultrasoundguidance and visualization under Doppler, visualizing and palpating the femoral artery and the vein just medial to this, sterilizing locally with Betadine, locally anesthetized and subcutaneously with 3 cc of plain 1% lidocaine, followed by venipuncture with 18-gauge, aspirating 5 cc of dark red nonpulsatileblood, withdrawing the needle and applying pressure. Patient was asymptomatic throughout all of this without any pain tolerated well no complications, pressure held no bleeding. Discharge Plan Dx/Rx/DC Orders Clinical Impression: Acute biliary pancreatitis, Cholelithiasis, Elevated liver enzymes Disposition Disposition: Acute Care Hospital [facility] What to do if you have Problems For any increased pain, shortness of breath, bleeding, nausea or vomiting, chestpain, or any unexpected problems, contact your Primary Care Provider. Call [facility] ([phone]) or report to the closest Emergency Room. Call 911 if necessary. 08/30/221943 <Electronically signed by Nicanor Alvarado MD> Cosigner Signature (if applicable): CC: Kenn Beauchamp MD ~ Signed [facility] Work Phone: [phone] Alvarado [facility] August 30, 2022 7:44pm Note Date/Time August 30, 2022 1:4 7pm [facility] Medical Records Department [address] [place] [address] Emergency Department Summary 08/30/22 MR#: [id number] Acct: [id number] Name: KATE OREILLY Rep #:[id number] : 1945 77 From: Nicanor Alvarado MD PCP: Kenn Beauchamp MD Status:REG ER Location: ED HPI HPI - GI History of Present Illness Chief Complaint: Abd Pain Informant: patient Abdominal Pain/Flank Pain Onset: Yesterday Context: Gradual Onset (about 2 hrs after eating chili for dinner) Timing: Continuous Quality: Aching Location: - (across upper abd) Current Severity: Severe Maximum Severity: Severe Worsened by: Nothing Relieved by: Nothing Nausea/Vomiting/Emesis GI Symptom: Positive for Nausea and Vomiting Onset: Today Diarrhea/Melena/Hematochezia GI Symptom: Negative for Diarrhea, Melena or Hematochezia Associated Symptoms Associated Symptoms: Negative for Dysuria, Frequency or Hematuria Narrative Narrative: Patient ate chili for dinner last night and a couple hours later started gettingdiffuse upper abdominal pain that has been worsening, it is not necessarily colicky, she has had nausea and vomiting. No history of any abdominal surgeriesin the past. 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 It is a little more uncomfortable to take deep breaths but she does not have lateralizing pain with doing so nor does she have discomfort in her chest or back. The pain radiates in a bandlike distribution around to her sides. No lower abdominal pain. No distention, she states her abdomen is its usual size. [facility] Medical History Diverticulosis Essential hypertension Hyperlipidemia Hypothyroidism Meningioma, cerebral Obesity Obstructive sleep apnea Secondary pulmonary arterial hypertension Trigeminal neuralgia Home Medications pregabalin 100 mg capsule (Lyrica) 100 mg PO TID 05/12/21 [History Last Taken Unknown] montelukast 10 mg tablet (Singulair) 10 mg PO QHS 08/13/21 [History Last Taken Unknown] multivitamin (Daily Multi-Vitamin tablet) 1 tab PO DAILY 08/13/21 [History Last Taken Unknown] furosemide 40 mg tablet (Lasix) 40 mg PO BID 11/11/21 [History Last Taken Unknown] levothyroxine 100 mcg tablet 100 mcg PO DAILY 11/11/21 [History Last Taken Unknown] losartan 100 mg tablet 100 mg PO DAILY #90 tabs 03/30/22 [Rx Last Taken Unknown] Allergy/AdvReac Type Severity Reaction Status Date / Time amoxicillin Allergy rash Verified 08/30/22 13:30 carbamazepine Allergy rash Verified 08/30/22 13:30 rofecoxib [From Vioxx] Allergy rash Verified 08/30/22 13:30 acetaminophen [From Percocet] AdvReac Vomiting Verified 08/30/22 13:30 codeine AdvReac vomiting Verified 08/30/22 13:30 fentanyl AdvReac Vomiting Verified 08/30/22 13:30 gabapentin [From Neurontin] AdvReac intolerance Verified 08/30/22 13:30 hydrocodone [From Vicodin] AdvReac Vomiting Verified 08/30/22 13:30 meperidine [From Demerol] AdvReac Vomiting Verified 08/30/22 13:30 oxycodone [From Percocet] AdvReac Vomiting Verified 08/30/22 13:30 topiramate [From Topamax] AdvReac intolerance Verified 08/30/22 13:30 tramadol AdvReac Vomiting Verified 08/30/22 13:30 Family History (Reviewed 05/21/22 @ 09:26 by Sarah Kasper DIGITAL WATCH ASSEMBLER, DIGITAL WATCH ASSEMBLER-C) Mother CVA (cerebral vascular accident) Heart disease PPM Father Heart disease valve replacement, PPM Brother Heart disease Brother Heart disease Sister Heart disease Sister Colon cancer Sister Breast cancer Daughter Breast cancer Surgical History History of cataract surgery History of colonoscopy History of craniotomy (2010) History of right and left heart catheterization (09/01/21) TN (trigeminal neuralgia) (2019) Social History Smoking Status: Never smoker alcohol intake: never substance use type: does not use caffeine: Yes Type: coffee Number of servings: 4 ROS ROS ED Constitutional Constitutional ED: Denies chills or fever(s) Eyes Eyes: Denies change in vision or diplopia ENT ENT ED: Denies rhinorrhea or sore throat Cardiovascular Cardiovascular: Denies chest pain or palpitations Respiratory/Chest Respiratory/Chest: Reports dyspnea on exertion; Denies cough or dyspnea Gastrointestinal Gastrointestinal: Reports as per HPI, abdominal pain, nausea and vomiting; Denies diarrhea Genitourinary Genitourinary ED: Denies dysuria or hematuria Musculoskeletal Musculoskeletal: Denies back pain or neck pain Integumentary Denies abscess or rash Neurologic Neurologic: Denies headache(s), paresthesias or weakness Psychiatric Psychiatric: Denies anxiety or suicidal thoughts EXAM Physical Exam Const Vital Signs: 08/30/22 13:07 08/30/22 13:30 08/30/22 17:16 Temperature 97.2 F L 97.6 F L Temperature Source Temporal Temporal Pulse Rate 117 H 100 78 Respiratory Rate 18 18 16 Blood Pressure 181/79 H 158/79 H 131/68 H Blood Pressure Mean 113 105 89 Pulse Ox 98 98 96 Oxygen Delivery Method Room Air Room Air Room Air 08/30/22 19:08 Temperature Temperature Source Pulse Rate Respiratory Rate Blood Pressure 122/59 H Blood Pressure Mean 80 Pulse Ox Oxygen Delivery Method Positive well nourished and well developed General Appearance ED: well developed and NAD HEENT Reports moist mucous membranes normocephalic and atraumatic Eyes PERRL and EOMs intact bilaterally Neck full ROM and supple Resp normal respiratory effort and clear to auscultation bilaterally Cardio regular rate, regular rhythm and no murmurs GI non-distended GI Narrative: Abdominal obesity. Very tender in both right upper and left upper quadrants less in the epigastrium. No guarding or rebound. No tenderness elsewhere. Auscultation: normoactive bowel sounds Palpation: soft Back/Spine no CVA tenderness General Back: other FROM Extremity normal to inspection General Extremety ED: Negative for edema, pulses abnormal or tenderness General Extremity: Negative for edema or pulses abnormal Neuro oriented x3, CN's II-XII intact bilaterally and no sensory deficits noted Sensorium / Orientation: awake and alert Motor Exam: strength 5/5 throughout Skin no rashes or lesions noted and no wounds MDM MDM MDM Narrative Medical decision making narrative: Concern is for early acute cholecystitis in this 77-year-old female who has never had any abdominal surgeries. Also in the differential is a perforated viscus although less likely. She has had no hematemesis. I did obtain a portable chest x-ray to evaluate for free air, on my interpretation there is none, and she has no other acute cardiopulmonary abnormality on the chest x-ray,chronic changes are noted. Labs took time. Patient is a very difficult stick, nurses were unable to get a small IV in her right shoulder, but after trying approximately 12 times, they ceased further attempts. I did femoral stick for blood see the procedure note. Labs are noted. I obtained a CT as well, I saw the images and agree with the radiologist interpretation, same with the right upper quadrant ultrasound. Not able to rule out choledocholithiasis with the labs, so I am giving her a dose of cefuroxime since she has a history of penicillin allergy and plan is admission. Lab Data Attestation: I reviewed the patient's lab results. Labs: Laboratory Results - last 24 hr 08/30/22 08/30/22 08/30/22 15:28 15:28 16:27 WBC 7.9 RBC 4.99 Hgb 14.1 Hct 44.9 MCV 90.0 MCH 28.3 MCHC 31.4 L RDW Std Deviation 44.9 H RDW Coeff of Rajinder 13.7 Plt Count Immature Gran % (Auto) 0.400 Neut % (Auto) 69.2 Lymph % (Auto) 24.3 [place] % (Auto) 5.6 Eos % (Auto) 0.1 Baso % (Auto) 0.4 Absolute Neuts (auto) 5.5 Absolute Lymphs (auto) 1.92 Nucleated RBC % 0 Differential Comment SCANNED Platelet Estimate ADEQUATE Sodium Cancelled Cancelled Potassium Cancelled Cancelled Chloride Cancelled Cancelled Carbon Dioxide Cancelled Cancelled Anion Gap Cancelled Cancelled BUN Cancelled Cancelled Creatinine Cancelled Cancelled Estim Creat Clear Calc Cancelled Cancelled Est GFR (MDRD) Af Amer Cancelled Cancelled Est GFR (MDRD) Non-Af Cancelled Cancelled BUN/Creatinine Ratio Cancelled Cancelled Glucose Cancelled Cancelled Calcium Cancelled Cancelled Total Bilirubin Cancelled Cancelled AST Cancelled Cancelled ALT Cancelled Cancelled Alkaline Phosphatase Cancelled Cancelled Total Protein Cancelled Cancelled Albumin Cancelled Cancelled Globulin Cancelled Cancelled Albumin/Globulin Ratio Cancelled Cancelled Lipase Cancelled Cancelled Urine Color Urine Clarity Urine pH Ur Specific Man Urine Protein Urine Glucose (UA) Urine Ketones Urine Occult Blood Urine Nitrite Urine Bilirubin Urine Urobilinogen Ur Leukocyte Esterase Urine RBC Urine WBC Ur Squamous Epith Cells Urine Bacteria Urine Mucus 08/30/22 08/30/22 17:02 18:25 WBC RBC Hgb Hct MCV MCH MCHC RDW Std Deviation RDW Coeff of Rajinder Plt Count Immature Gran % (Auto) Neut % (Auto) Lymph % (Auto) [place] % (Auto) Eos % (Auto) Baso % (Auto) Absolute Neuts (auto) Absolute Lymphs (auto) Nucleated RBC % Differential Comment Platelet Estimate Sodium 143 Potassium 4.2 Chloride 107 Carbon Dioxide 28.0 Anion Gap 8 BUN 16 Creatinine 0.96 Estim Creat Clear Calc 51.29 Est GFR (MDRD) Af Amer 73 Est GFR (MDRD) Non-Af 60 BUN/Creatinine Ratio 16.7 Glucose 121 H Calcium 8.2 L Total Bilirubin 1.40 H AST 715 H ALT 566 H Alkaline Phosphatase 112 Total Protein 6.3 L Albumin 3.2 Globulin 3.1 Albumin/Globulin Ratio 1.0 Lipase 77348 H Urine Color Yellow Urine Clarity Clear Urine pH 8.0 Ur Specific Man 1.015 Urine Protein Negative Urine Glucose (UA) Normal Urine Ketones Negative Urine Occult Blood Negative Urine Nitrite Negative Urine Bilirubin Negative Urine Urobilinogen Normal Ur Leukocyte Esterase 25 H Urine RBC 0 SEEN Urine WBC 0 SEEN Ur Squamous Epith Cells 0 SEEN Urine Bacteria 0 SEEN Urine Mucus 0 SEEN Radiography Diagnostic Testing: Clinical Impression(s) from Imaging Studies Gallbladder Ultrasound 08/30/22 13:42 IMPRESSION: Cholelithiasis with nonspecific distention. No sonographic findings of acute cholecystitis. Enlarged fatty liver. Electronically Signed: Corbin Valiente MD at 17:27 EDT , Chest X-Ray 08/30/22 15:10 IMPRESSION: No radiographic evidence of acute cardiopulmonary disease. Electronically Signed: Corbin Valiente MD at 15:55 EDT , Abdomen/Pelvis CT 08/30/22 17:58 IMPRESSION: Finding consistent with acute interstitial edematous pancreatitis. Electronically Signed: Corbin Valiente MD at 19:04 EDT , Management Discussion w/another healthcare provider: Hospitalist and Holistic Health Practitioner (Dr. Wesley, Dr. Jean-Baptiste surgery) Procedures Other Procedures Procedure(s): Right femoral venipuncture for blood sampling/labs: Via ultrasoundguidance and visualization under Doppler, visualizing and palpating the femoral artery and the vein just medial to this, sterilizing locally with Betadine, locally anesthetized and subcutaneously with 3 cc of plain 1% lidocaine, followed by venipuncture with 18-gauge, aspirating 5 cc of dark red nonpulsatileblood, withdrawing the needle and applying pressure. Patient was asymptomatic throughout all of this without any pain tolerated well no complications, pressure held no bleeding. Discharge Plan Dx/Rx/DC Orders Clinical Impression: Acute biliary pancreatitis, Cholelithiasis, Elevated liver enzymes Disposition Disposition: Acute Care Hospital [facility] What to do if you have Problems For any increased pain, shortness of breath, bleeding, nausea or vomiting, chestpain, or any unexpected problems, contact your Primary Care Provider. Call [employer] [facility] ([phone]) or report to the closest Emergency Room. Call 911 if necessary. 08/30/221943 <Electronically signed by Nicanor Alvarado MD> Cosigner Signature (if applicable): CC: Kenn Beauchamp MD ~ Signed [facility] Work Phone: [phone] History of Present illness Narrative* Kenn Beauchamp MD - 07/27/2022 7:16 PM EST Nirmatrelvir/Ritonavir (Paxlovid) Eligibility and Patient Discussion [facility] Formulary Restriction Criteria: Adult outpatients 18 years and older with ALL of the following: [x] Patient has positive SARS-COV-2 viral test (PCR or antigen test) during current illness [x] Patient has symptoms for 5 days or less [x] Not requiring hospitalization at any time for management of COVID-19 [x] Not requiring supplemental oxygen or a change in baseline supplemental oxygen [x] Not utilized for pre-exposure or post-exposure prophylaxis for prevention of COVID-19 [x] Patient does not have severe renal impairment (eGFR < 30 mL/min) or severe hepatic impairment (Child-[place] Class C) [x] Meeting at least one of the criteria for high risk of progression to severe COVID-19: [x] Age over 65 years [] Cancer [] Chronic kidney disease [] Chronic liver disease [] Chronic lung diseases, including cystic fibrosis [] Dementia or other neurological conditions [] Diabetes (type 1 or type 2) [] Disabilities, including Down syndrome and neurodevelopmental disorders [] Heart conditions [] HIV infection [] Immunocompromised state [] Mental health conditions [] Medical related technological dependence (tracheostomy, gastrostomy, or positive pressure ventilation (not related to COVID) [] Overweight and obesity (BMI greater or equal to 25 for adults) [] Physical inactivity [] [] Sickle cell disease or thalassemia [] Smoking, current or former [] Solid organ or blood stem cell transplant [] Stroke or cerebrovascular disease [] Substance use disorders [] Tuberculosis [] People from racial and ethnic minority groups Criteria above are met: Yes Date of Positive Test:07/26/22 Date of Symptom Onset: 07/26/22 Patient received COVID vaccine: Yes Drug-Drug interactions reviewed: Yes. No drug interactions were identified. I have discussed the use of the investigational therapeutic, nirmatrelvir/ritonavir, for the treatment of mild to moderate COVID-19 and its use under Emergency Use Authorization with the patient. The patient was informed that nirmatrelvir/ritonavir is not an FDA approved drug and that it is authorized for use under this Emergency Use Authorization. The patient was also informed of the significant known benefits and potential risks of nirmatrelvir/ritonavir, and the extent to which such potential risks and benefits are unknown. The patient was informed that there is mandatory reporting of all medication errors and serious adverse events potentially related to nirmatrelvir/ritonavir treatment within 7 calendar days from the onset of the event and that events up to 28 days after completion of therapy need to be reported. The discussion included alternatives to receiving nirmatrelvir/rit onavir, including clinical trials, and potential the risks and benefits of those alternatives. The patient was provided electronically with the Fact Sheet for Patients, Parents and Caregivers. The patient was also instructed that in addition to the treatment with nirmatrelvir/ritonavir, he/she should continue to self-isolate and use infection control measures (e.g., wear mask, isolate, social distance, avoid sharing personal items, clean and disinfect high touch surfaces, and frequent h andwashing) according to CDC guidelines. The patient stated understanding and gave verbal consent to proceeding with nirmatrelvir/ritonavir treatment. Kenn Beauchamp MD July 27, 2022 7:21 PM * Kenn Beauchamp MD - 07/27/2022 7:00 PM EST Chief Complaint No chief complaint on file. HPI:This Team Access Model visit is a virtual encounter via ReplySend. It required patient-provider interaction for the medical decision making as documented below. Patient was offered a virtual/telemedicine appointment in lieu of an office visit due to recommendations to reduce patient exposure to COVID- 19. Patient is aware of limitations of performing the visit without a face to face visit in the office setting and agrees. Pt completing virtual visit today for + Covid home test. Pt reports symptoms starting yesterday with a runny nose, nasal drainage and scratchy throat. Had agrandson come over who didn't realize he had Covid and started with symptoms of a scratchy throat, but they thought this was related to recently painting in the home. Pt states she tested last night and was positive. Concerned about this going to her lungs. Past medical history, appointments, medications, allergies reviewed. Previous Medical History PAST MEDICAL HISTORY Diagnosis Date Diverticulosis of colon (without mention of hemorrhage) Family history of malignant neoplasm of gastrointestinal tract Head injury 09/30 trip fall HTN (hypertension) Hypothyroidism Internal hemorrhoids without mention of complication SREEKANTH (obstructive sleep apnea) Other and unspecified hyperlipidemia Pneumonia 07/2011 Snoring Trigeminal neuralgia Previous Surgical History PAST SURGICAL HISTORY Procedure Laterality Date BIOPSY BREAST OPEN INCISIONAL Left LATE ' Bx of breast, incisional COLONOSCOPY FLX DX W/COLLJ SPEC WHEN PFRMD 03/12/08 COLONOSCOPY FLX DX W/COLLJ SPEC WHEN PFRMD 02/05/14 Colonoscopy COLONOSCOPY FLX DX W/COLLJ SPEC WHEN PFRMD 05/20/15 Colonoscopy COLONOSCOPY FLX DX W/COLLJ SPEC WHEN PFRMD 01/23/2019 Colonoscopy PAST SURGICAL HISTORY OF 09/03/2010 CRANIECTOMY EXCISON TUMOR, INFRATENTORIAL OR POST FOSSA, MENIGIOMA PAST SURGICAL HISTORY OF 05/06/2011 right [place]VD fro [place] PAST SURGICAL HISTORY OF 04/2019 Trigeminal neuralgia surgery. Brain leak in August 2019 TONSILLECTOMY PRIMARY/SECONDARY <AGE 12 A CHILD Tonsillectomy XCAPSL CTRC RMVL INSJ IO LENS PROSTH W/O ECP 2012 Cataract Extraction with PC IOL XCAPSL CTRC RMVL INSJ IO LENS PROSTH W/O ECP 2012 Cataract Extraction with PC IOL Family History FAMILY HISTORY Problem Relation Age of Onset Alzheimer's Disease Mother Heart Mother pacemaker Stroke Mother Heart Father VALVE REPLACEMENT,PACE MAKER Heart Sister Heart Brother Heart Brother Colon Cancer Sister Breast Cancer Sister Breast Cancer Daughter Patient Allergies ALLERGIES Allergen Reactions Amoxicillin Rash Carbamazepine Rash Codeine Vomiting Percocet [Oxycodone* Vomiting Tegretol [Carbamaze* Vomiting Dizziness, couldn't see straight Skin reaction when went in sun Tramadol Vomiting Vicodin [Hydrocodon* Vomiting Vioxx [Rofecoxib] Rash Demerol [Meperidine* Intolerance Neurontin [Gabapent* Intolerance Dizziness, feeling like I couldn't work Topamax [Topiramate] Intolerance Flushed, red skin Fentanyl GI Upset Current Medications Current Outpatient Medications on File Prior to Visit Medication Sig losartan (COZAAR) 100 mg tablet Take 1 tablet by mouth once daily. levothyroxine (SYNTHROID) 100 mcg tablet Take 1 tablet by mouth once daily. Take on empty stomach furosemide (LASIX) 40 mg tablet Take 1 tablet by mouth three times daily. Sennosides 25 mg tab Take 1 tablet by mouth daily at bedtime. montelukast (SINGULAIR) 10 mg tablet Take 1 tablet by mouth daily at bedtime. multivitamin tablet Take 1 tablet by mouth once daily. pregabalin (LYRICA) 100 mg capsule Take 1 capsule by mouth four times daily for [address] Duncan. No current facility-administered medications on file prior to visit. Social History Social History Tobacco Use Smoking status: Never Smokeless tobacco: Never Vaping Use Vaping Use: Never used Substance Use Topics Alcohol use: No Drug use: No EXAM: LMP (LMP Unknown) General Appearance: Well appearing, alert, in no acute distress, well-hydrated, well nourished.. Health Maintenance List DTAP,TDAP,TD(2 - Td or Tdap) due on 10/09/2017 ADVANCE DIRECTIVE DISCUSSION due on 06/21/2022 DEPRESSION ASSESSMENT Never done ANNUAL PCP TEAM CHRONIC DISEASE VISIT due on 02/09/2023 BP CONTROLLED (<130/80) due on 02/09/2023 DIABETES SCREEN due on 02/05/2025 BONE DENSITY Completed INFLUENZA Completed HEPATITIS C SCREENING Completed SHINGRIX VACCINE Completed COVID-19 VACCINE Completed PNEUMOCOCCAL: 65+ Completed Data reviewed External results ASSESSMENT/PLAN: 1. COVID - ICD9: 079.89, ICD10: U07.1 Continue symptomatic treatment - NIRMATRELVIR 300 MG (150 MG X2)-RITONAVIR 100 MG TABLET,DOSE PACK(EUA) Call if not improving in 5-7 days Kenn Beauchamp MD documented [facility] Instructions* Patient Instructions* Kenn Beauchamp MD - 07/27/2022 7:16 PM EST FACT SHEET FOR PATIENTS, PARENTS, AND CAREGIVERS EMERGENCY USE AUTHORIZATION (EUA) OF PAXLOVID FOR CORONAVIRUS DISEASE 2019 (COVID-19) You are being given this Fact Sheet because your healthcare provider believes it is necessary to provide you with PAXLOVID for the treatment of kwww-sj-nwedudil coronavirus disease (COVID-19) caused by the SARS-CoV-2 virus. This Fact Sheet contains information to help you understand the risks and benefits of taking the PAXLOVID you have received or may receive. The U.S. Food and Drug Administration (FDA) has issued an Emergency Use Authorization (EUA) to makePAXLOVID available during the COVID-19 pandemic (for more details about an EUA please see What is an Emergency Use Authorization? at the end of this document). PAXLOVID is not an FDA-approved medicine in the [place]. Read this Fact Sheet for information about PAXLOVID. Talk to your healthcareprovider about your options or if you have any questions. It is your choice to take PAXLOVID. What is COVID-19? COVID-19 is caused by a virus called a coronavirus. You can get COVID-19 through close contact withanother person who has the virus. COVID-19 illnesses have ranged from very lpoy-wh-ttgdvg, including illness resulting in . While information so far suggests that most COVID-19 illness is mild, serious illness can happen and maycause some of your other medical conditions to become worse. Older people and people of all ages with severe, long lasting (chronic) medical conditions like heart disease, lung disease, and diabetes,for example seem to be at higher risk of being hospitalized for COVID-19. What is PAXLOVID? PAXLOVID is an investigational medicine used to treat nbol-tf-xtwjcpwa COVID-19 in adults and children [12 years of age and older weighing at least 88 pounds (40 kg)] with positive results of direct SARS-CoV-2 viral testing, and who are at high risk for progression to severe COVID-19, including hospitalization or . PAXLOVID is investigational because it is still being studied. There is limited information about the safety and effectiveness of using PAXLOVID to treat people with ukgf-xj-bktkykac COVID-19. The FDA has authorized the emergency use of PAXLOVID for the treatment of wxtm-nm-didkjydr COVID-19in adults and children [12 years of age and older weighing at least 88 pounds (40 kg)] with a positive test for the virus that causes COVID-19, and who are at high risk for progression to severe COVID-19, including hospitalization or , under an EUA. 1 Revised: 05 September 2021 What should I tell my healthcare provider before I take PAXLOVID? Tell your healthcare provider if you: Have any allergies Have liver or kidney disease Are or plan to become Are a child Have any serious illnesses Tell your healthcare provider about all the medicines you take, including prescription and xqib-ado-vyhglmf medicines, vitamins, and herbal supplements. Some medicines may interact with PAXLOVID and may cause serious side effects. Keep a list of your medicines to show your healthcare provider and pharmacist when you get a new medicine. You can ask your healthcare provider or pharmacist for a list of medicines that interact with PAXLOVID. Do not start taking a new medicine without telling your healthcare provider. Your healthcare provider can tell you if it is safe to take PAXLOVID with other medicines. Tell your healthcare provider if you are taking combined hormonal contraceptive. PAXLOVID may affect how your control pills work. Females who are able to become should use another effective alternative form of contraception or an additional barrier method of contraception. Talk to your healthcare provider if you have any questions about contraceptive methods thatmight be right for you. How do I take PAXLOVID? PAXLOVID consists of 2 medicines: nirmatrelvir and ritonavir. Take 2 pink tablets of nirmatrelvir with 1 white tablet of ritonavir by mouth 2 times each day (in the morning and in the evening) for 5 days. For each dose, take all 3 tablets at the same time. If you have kidney disease, talk to your healthcare provider. You may need a different dose. Swallow the tablets whole. Do not chew, break, or crush the tablets. Take PAXLOVID with or without food. Do not stop taking PAXLOVID without talking to your healthcare provider, even if you feel better. If you miss a dose of PAXLOVID within 8 hours of the time it is usually taken, take it as soon as you remember. If you miss a dose by more than 8 hours, skip the missed dose and take the next dose atyour regular time. Do not take 2 doses of PAXLOVID at the same time. If you take too much PAXLOVID, call your healthcare provider or go to the nearest hospital emergency room right away. If you are taking a ritonavir-or cobicistat-containing medicine to treat hepatitis C or Human Immunodeficiency Virus (HIV), you should continue to take your medicine as prescribed by your healthcare provider. Talk to your healthcare provider if you do not feel better or if you feel worse after 5 days. Who should generally not take PAXLOVID? Do not take PAXLOVID if: You are allergic to nirmatrelvir, ritonavir, or any of the ingredients in PAXLOVID You are taking any of the following medicines: Alfuzosin Pethidine, propoxyphene Ranolazine Amiodarone, dronedarone, flecainide, propafenone, quinidine Colchicine Lurasidone, pimozide, clozapine Dihydroergotamine, ergotamine, methylergonovine Lovastatin, simvastatin Sildenafil (Revatio ) for pulmonary arterial hypertension (PAH) Triazolam, oral midazolam Apalutamide Carbamazepine, phenobarbital, phenytoin Rifampin [place] s Wort (hypericum perforatum) Taking PAXLOVID with these medicines may cause serious or life-threatening side effects or affect how PAXLOVID works. These are not the only medicines that may cause serious side effects if taken with PAXLOVID. PAXLOVID may increase or decrease the levels of multiple other medicines. It is very important to tell your healthcare provider about all of the medicines you are taking because additional laboratory tests or changes in the dose of your other medicines may be necessary while you are taking PAXLOVID. Your healthcare provider may also tell you about specific symptoms to watch out for that may indicate that you need to stop or decrease the dose of some of your other medicines. What are the important possible side effects of PAXLOVID? Possible side effects of PAXLOVID are: Allergic Reactions. Allergic reactions can happen in people taking PAXLOVID, even after only 1 dose. Stop taking PAXLOVID and call your healthcare provider right away if you get any of the following symptoms of an allergic reaction: hives trouble swallowing or breathing swelling of the mouth, lips, or face throat tightness hoarseness skin rash Liver Problems. Tell your healthcare provider right away if you have any of these signs and symptoms of liver problems: loss of appetite, yellowing of your skin and the whites of eyes (jaundice), dark-colored urine, pale colored stools and itchy skin, stomach area (abdominal) pain. Resistance to HIV Medicines. If you have untreated HIV infection, PAXLOVID may lead to some HIV medicines not working as well in the future. Other possible side effects include: altered sense of taste diarrhea high blood pressure muscle aches These are not all the possible side effects of PAXLOVID. Not many people have taken PAXLOVID. Serious and unexpected side effects may happen. PAXLOVID is still being studied, so it is possible that all of the risks are not known at this time. What other treatment choices are there? Veklury (remdesivir) is FDA-approved for the treatment of kjsu-jr-tdushibu COVID-19 in certain adults and children. Talk with your doctor to see if Veklury is appropriate for you. Like PAXLOVID, FDA may also allow for the emergency use of other medicines to treat people with COVID-19. Go to https://www.fda.gov/tmbncfcmf-vcgimbkmeacr-ztmwiponaxa/idl-mydzl-eugitkjgxx-and- policy-framework/zdtojosgz-qpb-pdubtcbneboce for information on the emergency use of other medicines that are authorized by FDA to treat people with COVID-19. Your healthcare provider may talk with you aboutclinical trials for which you may be eligible. It is your choice to be treated or not to be treated with PAXLOVID. Should you decide not to receive it or for your child not to receive it, it will not change your standard medical care. What if I am or ? There is technology internship treating women or mothers with PAXLOVID. For a motherand unborn baby, the benefit of taking PAXLOVID may be greater than the risk from the treatment. Ifyou are , discuss your options and specific situation with your healthcare provider. It is recommended that you use effective barrier contraception or do not have sexual activity whiletaking PAXLOVID. If you are , discuss your options and specific situation with your healthcare provider. How do I report side effects with PAXLOVID? Contact your healthcare provider if you have any side effects that bother you or do not go away. Report side effects to [employer] at www.fda.gov/medxaitmenttch or call 5-034-CGT4375 or you can reportside effects to [employer] at the contact information provided below. Website Fax number Telephone number [employer] How should I store PAXLOVID? Store PAXLOVID tablets at room temperature, between 68?F to 77?F (20?C to 25?C). How can I learn more about COVID-19? Ask your healthcare provider. Visit https://www.cdc.gov/COVID19. Contact your local or state public health department. What is an Emergency Use Authorization (EUA)? The [place] FDA has made PAXLOVID available under an emergency access mechanism called an Emergency Use Authorization (EUA). The EUA is supported by a Vp Medical of Health and Human Service (HHS) declaration that circumstances exist to justify the emergency use of drugs and biological productsduring the COVID-19 pandemic. PAXLOVID for the treatment of cuzh-cf-trrsdpcv COVID-19 in adults and children [12 years of age andolder weighing at least 88 pounds (40 kg)] with positive results of direct SARS-CoV-2 viral testing, and who are at high risk for progression to severe COVID-19, including hospitalization or , has not undergone the same type of review as an FDA-approved product. In issuing an EUA under the COVID-19 public health emergency, the FDA has determined, among other things, that based on the total amount of scientific evidence available including data from adequate and well-controlled clinical trials, if available, it is reasonable to believe that the product may be effective for diagnosing, treating, or preventing COVID-19, or a serious or life-threatening disease or condition caused by COVID-19; that the known and potential benefits of the product, when used to diagnose, treat, or prevent such disease or condition, outweigh the known and potential risks of such product; and that there are no adequate, approved, and available alternatives. All of these criteria must be met to allow for the product to be used in the treatment of patients during the COVID-19 pandemic. The EUA for PAXLOVID is in effect for the duration of the COVID-19 declaration justifying emergency use of this product, unless terminated or revoked (after which the products may no longer be used under the EUA). Additional Information For general questions, visit the website or call the telephone number provided below. Website Telephone number [employer] (3-902-S77-PACK) You can also go to www.Kite.ly or call for more information. Pfizer Distributed by [employer] [place] [address] [id number] Revised: 05 September 2021 documented [facility] Miscellaneous Notes* Telephone Encounter - Yolanda Lau Ma - 03/30/2022 12:57 PM EDT Last Rx give by Dr. Varela on 12/27/21 #90. Pt notified to contact there office for refills as they d/c medications that were given by PCP and started her on this medication, that was not Rx'd by this office. Pt understood. Yolanda Lau Ma * Telephone Encounter - Quyen Barragan - 03/30/2022 11:47 AM EDT Patient has been identified by name and date of : Yes Requested Prescriptions Pending Prescriptions Disp Refills losartan (COZAAR) 100 mg tablet Sig: Take 1 tablet by mouth once daily. RX INSTRUCTIONS: Patient aware RX will be sent to pharmacy. No need to notify patient. Quyen Ravi Pss documented in this encounterMem[facility] History of Present illness Narrative* Kenn Beauchamp MD - 02/09/2022 3:20 PM EDT Chief Complaint Patient presents with: F/U 3 Month HPI Kate Oreilly is a 77 year old female who presents here today for 3 month follow up. She denies having advanced directives; but one is scanned in her chart from 2010. Denies any bowel, Gi, or urinary concerns. Uses Colace prn constipation. HTN: Does not check BP at home, no chest pains, dizziness, or unusual SOB. Taking Losartan 100 mg, states she is taking it once daily, not twice daily. Follows with Dr. Varela, Cardio. Thyroid: Taking Synthroid 100 mcg daily. No missed dosages. Pain: back and trigeminal neuralgia; follows with Dr. Yadav, Pain management. Uses Lyrica 100 mg QID. No longer on [place] 5-325 mg half pill TID. Had an injection that helped. SOB: Chronic, follows with Dr. Singh and on current regimen of Singulair 10 mg once daily. She thinks she has bronchitis, sx started on 01/22/22. She has head congestion, some chest congestion, coughwith coughing up phlegm, SOB and wheezing. Denies any fevers, ear pain, headache, sore throat. She took 2 Covid tests which were negative. Has not been treating symptomatically. Thinks she picked something up at the [employer], had 5 grandchildren showing their sewing projects there. She had to model the dress her grandson made. Pain: has some pain in the buttocks that started a month ago when she was doing some squats with with weights up to 15 lbs. She has not been doing the exercise anymore. Has some pain to the tailbone.Has some pain with sitting. She is not taking anything extra for pain other than the Lyrica. Edema: linda leg; doing better since increasing Lasix 40 mg BID-TID. Uses compression stockings prn. The swelling does improve over night. She has some redness to the lower legs, no pain. Past medical history, appointments, medications, allergies reviewed. Previous Medical History PAST MEDICAL HISTORY Diagnosis Date Diverticulosis of colon (without mention of hemorrhage) Family history of malignant neoplasm of gastrointestinal tract Head injury 09/30 trip fall HTN (hypertension) Hypothyroidism Internal hemorrhoids without mention of complication SREEKANTH (obstructive sleep apnea) Other and unspecified hyperlipidemia Pneumonia 07/2011 Snoring Trigeminal neuralgia Previous Surgical History PAST SURGICAL HISTORY Procedure Laterality Date BIOPSY BREAST OPEN INCISIONAL Left LATE Bx of breast, incisional COLONOSCOPY FLX DX W/COLLJ SPEC WHEN PFRMD 03/12/08 COLONOSCOPY FLX DX W/COLLJ SPEC WHEN PFRMD 02/05/14 Colonoscopy COLONOSCOPY FLX DX W/COLLJ SPEC WHEN PFRMD 05/20/15 Colonoscopy COLONOSCOPY FLX DX W/COLLJ SPEC WHEN PFRMD 01/23/2019 Colonoscopy PAST SURGICAL HISTORY OF 09/03/2010 CRANIECTOMY EXCISON TUMOR, INFRATENTORIAL OR POST FOSSA, MENIGIOMA PAST SURGICAL HISTORY OF 05/06/2011 [place] fro [place] PAST SURGICAL HISTORY OF 04/2019 Trigeminal neuralgia surgery. Brain leak in August 2019 TONSILLECTOMY PRIMARY/SECONDARY <AGE 12 A CHILD Tonsillectomy XCAPSL CTRC RMVL INSJ IO LENS PROSTH W/O ECP 2012 Cataract Extraction with PC IOL XCAPSL CTRC RMVL INSJ IO LENS PROSTH W/O ECP 2012 Cataract Extraction with PC IOL Family History FAMILY HISTORY Problem Relation Age of Onset Alzheimer's Disease Mother Heart Mother pacemaker Stroke Mother Heart Father VALVE REPLACEMENT,PACE MAKER Heart Sister Heart Brother Heart Brother Colon Cancer Sister Breast Cancer Sister Breast Cancer Daughter Patient Allergies ALLERGIES Allergen Reactions Amoxicillin Rash Carbamazepine Rash Codeine Vomiting Percocet [Oxycodone* Vomiting Tegretol [Carbamaze* Vomiting Dizziness, couldn't see straight Skin reaction when went in sun Tramadol Vomiting Vicodin [Hydrocodon* Vomiting Vioxx [Rofecoxib] Rash Demerol [Meperidine* Intolerance Neurontin [Gabapent* Intolerance Dizziness, feeling like I couldn't work Topamax [Topiramate] Intolerance Flushed, red skin Fentanyl GI Upset Current Medications Current Outpatient Medications on File Prior to Visit Medication Sig levothyroxine (SYNTHROID) 100 mcg tablet Take 1 tablet by mouth once daily. Take on empty stomach furosemide (LASIX) 40 mg tablet Take 1 tablet by mouth three times daily. Sennosides 25 mg tab Take 1 tablet by mouth daily at bedtime. montelukast (SINGULAIR) 10 mg tablet Take 1 tablet by mouth daily at bedtime. multivitamin tablet Take 1 tablet by mouth once daily. HYDROcodone-acetaminophen (NORCO) 5-325 mg per tablet Pt takes 1/2 pill 2x a day losartan (COZAAR) 100 mg tablet pregabalin (LYRICA) 100 mg capsule Take 1 capsule by mouth four times daily for [address] Duncan. No current facility-administered medications on file prior to visit. Social History Social History Tobacco Use Smoking status: Never Smokeless tobacco: Never Vaping Use Vaping Use: Never used Substance Use Topics Alcohol use: No Drug use: No EXAM: BP 128/74 Pulse 78 Resp 20 Wt 97.7 kg (215 lb 6.4 oz) LMP (LMP Unknown) BMI 33.74 kg/m General Appearance: Well appearing, alert, in no acute distress, well-hydrated, well nourished. andObese. Back: muscle tenderness on palpation to the tailbone Lungs: Lungs clear to auscultation. No wheezing, rhonchi, rales.. Heart: RRR without murmur, gallop, or rubs. No ectopy. Extremities: Edema: linda lower legs; mild swelling, some redness discoloration to the lower legs; nopain. Health Maintenance List DTAP,TDAP,TD(2 - Td or Tdap) due on 10/09/2017 ADVANCE DIRECTIVE DISCUSSION Never done DEPRESSION SCREENING due on 10/16/2021 INFLUENZA(1) due on 02/19/2022 ANNUAL PCP TEAM CHRONIC DISEASE VISIT due on 11/10/2022 BP CONTROLLED (<130/80) due on 11/10/2022 DIABETES SCREEN due on 07/31/2024 BONE DENSITY Completed HEPATITIS C SCREENING Completed SHINGRIX VACCINE Completed COVID-19 VACCINE Completed PNEUMOCOCCAL: 65+ Completed Data reviewed Appointment on 02/05/2022 Component Date Value Protein, Total 02/05/2022 6.8 Albumin 02/05/2022 4.3 Calcium, Total 02/05/2022 9.5 Bilirubin, Total 02/05/2022 0.3 Alkaline Phosphatase 02/05/2022 69 AST 02/05/2022 19 ALT 02/05/2022 18 Glucose 02/05/2022 106 (A) BUN 02/05/2022 16 Creatinine 02/05/2022 0.95 Sodium 02/05/2022 142 Potassium 02/05/2022 4.0 Chloride 02/05/2022 102 CO2 02/05/2022 27 Anion Gap 02/05/2022 13 Estimated Glomerular Duran* 02/05/2022 62 WBC 02/05/2022 6.97 RBC 02/05/2022 4.70 Hemoglobin 02/05/2022 13.5 Hematocrit 02/05/2022 43.6 MCV 02/05/2022 92.8 MCH 02/05/2022 28.7 MCHC 02/05/2022 31.0 RDW-CV 02/05/2022 13.5 Platelet Count 02/05/2022 218 MPV 02/05/2022 12.3 Absolute nRBC 02/05/2022 <0.01 TSH 02/05/2022 1.860 ASSESSMENT/PLAN: 1. Essential hypertension, benign - ICD9: 401.1, ICD10: I10 (primary diagnosis) - good control - Continue current medication(s) - Recommended regular aerobic exercise. - Recommend home blood pressure monitoring, to bring results in on next visit - Goal of BP <130/80 2. Obesity, Class I, BMI 30-34.9 - ICD9: 278.00, ICD10: E66.9 Stable Recommend watching diet and exercise as able 3. Bilateral leg edema - ICD9: 782.3, ICD10: R60.0 Stable Continue current medications. 4. Hypothyroidism, unspecified type - ICD9: 244.9, ICD10: E03.9 - Instructed patient on importance of taking on an empty stomach either first thing in the morning or at bedtime. Continue current medication 5. Trigeminal neuralgia - ICD9: 350.1, ICD10: G50.0 Continue current medications. Continue with Pain Management Dr. Yadav 6. Hyperlipidemia, mixed - ICD9: 272.2, ICD10: E78.2 - good control - Continue with diet and exercise - Encouraged following a low fat, low cholesterol diet. - Discussed the benefits of regular aerobic exercise and weight loss. 7. Acute bronchitis, unspecified organism - ICD9: 466.0, ICD10: J20.9 Start Doxycycline 100 mg BID x 10 days. 8. Muscle strain of gluteal region, unspecified laterality, initial encounter - ICD9: 843.8, ICD10:S76.019A Continue to monitor; symptomatic treatment Follow up in 6 months with fasting labs prior. I agree with the Chief Complaint, ROS, and Past Histories independently gathered by the clinical direct support professional and the remaining scribed note accurately describes my personal service to the patient. Medical Decision Making: Problems: Moderate: 2+ stable chronic illnesses Data: Unique test result(s) reviewed: 3+ Unique test(s) ordered: 3+ Risk: Moderate: Drug management Medical Decision Making Level: 4 - Moderate Kenn Beauchamp MD The documentation for this note was completed by Lupe Sapp Ma acting as scribe for Kenn Beauchamp MD. February 09, 2022 3:17 PM. Lupe Sapp Ma documented [facility] Miscellaneous Notes* Telephone Encounter - Gary Odell APRN.CNP - 01/12/2022 8:42 AM EDT The following approved medication requests have been transmitted electronically. Pending Prescriptions Disp Refills LEVOTHYROXINE 100 MCG TABLET 90 tablet 3 Sig: Take 1 tablet by mouth once daily. Take on empty stomach GLO: No Gary Odell APRN.CNP * Telephone Encounter - Rody Diaz RN - 01/12/2022 8:34 AM EDT Patient has been identified by name and date of : Yes Patient phones for refill(s): Pending Prescriptions Disp Refills LEVOTHYROXINE 100 MCG TABLET 90 tablet 3 Sig: Take 1 tablet by mouth once daily. Take on empty stomach GLO: No Date of last office visit with pcp: 11/10/2021 Future appt: 02/09/2022 Last 2 Encounter Wt Readings: Date: Wt: 11/10/2021 98.8 kg (217 lb 12.8 oz) 07/31/2021 101.7 kg (224 lb 4.8 oz) Previous labs/tests for medication: Thyroid: TSH (uU/mL) Date Value 07/31/2021 2.770 Blood Pressure: BUN (mg/dL) Date Value 07/31/2021 14 Sodium (mmol/L) Date Value 07/31/2021 141 Last 1 Encounter BP Readings: Date: BP: 11/10/2021 126/78 Liver Function: ALT (U/L) Date Value 07/31/2021 28 AST (U/L) Date Value 07/31/2021 26 Please advise. Thank you. Rody Diaz RN documented in this encounter[facility] History of Present illness Narrative* Kenn Beauchamp MD - 11/10/2021 9:00 AM EDT Chief Complaint Patient presents with: F/U 3 Month HPI Kate Oreilly is a 76 year old female who presents here today for a 3 month follow up. Denies any stomach, bowel or urinary issues. Uses Colace prn for constipation. HTN: Denies checking BP at home. Denies any chest pain, dizziness or abnormal sob. On current regimen of Losartan 100 mg 1 tab po bid. Follows up with Cardiology, Dr. Varela routinely who prescribes pt's Losartan. She is getting dizziness but it occurs when she has her neck bent down reading. Skin: has red areas on medial lower legs; no pain or itching. Chronic swelling of legs. SOB: Chronic, follows with Dr. Singh and on current regimen of Singulair 10 mg once daily. Edema: Chronic b/l leg edema. Taking Lasix 40 mg bid. Edema improves over night. Occasionally wearscompression stockings and elevate legs as able. Thyroid: Stable on current regimen of Synthroid 100 mcg once daily. At previous OV she felt increased jitteriness and shakiness, but labs were normal. Pain: Chronic back pain and trigeminal neuralgia. Pt currently following with Dr. Yadav who's given her injections, with some benefit and prescribes Lyrica 100 mg 1 caps po QID and [place] 5-325 mg 0.5 tab TID. Pt has been seen by Dr. Hendrix and Dr. Lara through [facility]. Pt states she hasbeen trying to cut down on the [place] usage. Shoulder pain x 1.5 months. Limited ROM. Is taking prescription narcotics. She has not used any heat or ice on the shoulder. She also has tingling in both hands. She has burning in her feet at times. Past medical history, appointments, medications, allergies reviewed. Previous Medical History PAST MEDICAL HISTORY Diagnosis Date Diverticulosis of colon (without mention of hemorrhage) Family history of malignant neoplasm of gastrointestinal tract Head injury 09/30 trip fall HTN (hypertension) Hypothyroidism Internal hemorrhoids without mention of complication SREEKANTH (obstructive sleep apnea) Other and unspecified hyperlipidemia Pneumonia 07/2011 Snoring Trigeminal neuralgia Previous Surgical History PAST SURGICAL HISTORY Procedure Laterality Date BIOPSY BREAST OPEN INCISIONAL Left LATE Bx of breast, incisional COLONOSCOPY FLX DX W/COLLJ SPEC WHEN PFRMD 03/12/08 COLONOSCOPY FLX DX W/COLLJ SPEC WHEN PFRMD 02/05/14 Colonoscopy COLONOSCOPY FLX DX W/COLLJ SPEC WHEN PFRMD 05/20/15 Colonoscopy COLONOSCOPY FLX DX W/COLLJ SPEC WHEN PFRMD 01/23/2019 Colonoscopy PAST SURGICAL HISTORY OF 09/03/2010 CRANIECTOMY EXCISON TUMOR, INFRATENTORIAL OR POST FOSSA, MENIGIOMA PAST SURGICAL HISTORY OF 05/06/2011 right MVD fro [place] PAST SURGICAL HISTORY OF 04/2019 Trigeminal neuralgia surgery. Brain leak in August 2019 TONSILLECTOMY PRIMARY/SECONDARY <AGE 12 A CHILD Tonsillectomy XCAPSL CTRC RMVL INSJ IO LENS PROSTH W/O ECP 2012 Cataract Extraction with PC IOL XCAPSL CTRC RMVL INSJ IO LENS PROSTH W/O ECP 2012 Cataract Extraction with PC IOL Family History FAMILY HISTORY Problem Relation Age of Onset Alzheimer's Disease Mother Heart Mother pacemaker Stroke Mother Heart Father VALVE REPLACEMENT,PACE MAKER Heart Sister Heart Brother Heart Brother Colon Cancer Sister Breast Cancer Sister Breast Cancer Daughter Patient Allergies ALLERGIES Allergen Reactions Amoxicillin Rash Carbamazepine Rash Codeine Vomiting Percocet [Oxycodone* Vomiting Tegretol [Carbamaze* Vomiting Dizziness, couldn't see straight Skin reaction when went in sun Tramadol Vomiting Vicodin [Hydrocodon* Vomiting Vioxx [Rofecoxib] Rash Demerol [Meperidine* Intolerance Neurontin [Gabapent* Intolerance Dizziness, feeling like I couldn't work Topamax [Topiramate] Intolerance Flushed, red skin Fentanyl GI Upset Current Medications Current Outpatient Medications on File Prior to Visit Medication Sig Sennosides 25 mg tab Take 1 tablet by mouth daily at bedtime. montelukast (SINGULAIR) 10 mg tablet Take 1 tablet by mouth daily at bedtime. multivitamin tablet Take 1 tablet by mouth once daily. HYDROcodone-acetaminophen (NORCO) 5-325 mg per tablet Pt takes 1/2 pill 2x a day ondansetron (ZOFRAN) 4 mg tablet losartan (COZAAR) 100 mg tablet meloxicam (MOBIC) 7.5 mg tablet Take 1 tablet by mouth once daily. Take with food. furosemide (LASIX) 40 mg tablet Take 1 tablet by mouth twice daily. levothyroxine (SYNTHROID) 100 mcg tablet Take 1 tablet by mouth once daily. Take on empty stomach pregabalin (LYRICA) 100 mg capsule Take 1 capsule by mouth four times daily for [address] Duncan. No current facility-administered medications on file prior to visit. Social History Social History Tobacco Use Smoking status: Never Smoker Smokeless tobacco: Never Used Vaping Use Vaping Use: Never used Substance Use Topics Alcohol use: No Drug use: No EXAM: BP 126/78 Pulse 68 Resp 18 Wt 98.8 kg (217 lb 12.8 oz) LMP (LMP Unknown) BMI 34.11 kg/m General Appearance: Well appearing, alert, in no acute distress, well-hydrated, well nourished.. Skin: mild venous stasis changes linda lower legs. Lungs: Lungs clear to auscultation. No wheezing, rhonchi, rales.. Heart: RRR without murmur, gallop, or rubs. No ectopy Ext: mild linda edema. Health Maintenance List DTAP,TDAP,TD(2 - Td or Tdap) due on 10/09/2017 ADVANCE DIRECTIVE DISCUSSION Never done COVID-19 VACCINE(4 - Booster for Pfizer series) due on 07/15/2021 DEPRESSION SCREENING due on 10/16/2021 SHINGRIX VACCINE(3 of 3) due on 11/10/2021 ANNUAL PCP TEAM CHRONIC DISEASE VISIT due on 07/31/2022 BP CONTROLLED (<130/80) due on 07/31/2022 DIABETES SCREEN due on 07/31/2024 BONE DENSITY Completed INFLUENZA Completed HEPATITIS C SCREENING Completed PNEUMOVAX AGE 65 AND OVER WITH 5YR LOOKBACK Completed MENINGOCOCCAL CONJUGATE Aged Out Data reviewed none ASSESSMENT/PLAN: 1. Essential hypertension, benign - ICD9: 401.1, ICD10: I10 (primary diagnosis) - good control - Continue current medication(s) - Recommended regular aerobic exercise. - Recommend home blood pressure monitoring, to bring results in on next visit - Goal of BP <140/90 - COMP METABOLIC PANEL - CBC 2. Bilateral leg edema - ICD9: 782.3, ICD10: R60.0 May increase lasix to tid as needed - FUROSEMIDE 40 MG TABLET 3. Hypothyroidism, unspecified type - ICD9: 244.9, ICD10: E03.9 - Instructed patient on importance of taking on an empty stomach either first thing in the morning or at bedtime. - TSH BLD 4. Hyperlipidemia, mixed - ICD9: 272.2, ICD10: E78.2 5. Trigeminal neuralgia - ICD9: 350.1, ICD10: G50.0 Follow with Pain Follow up in 3 months with labs prior I agree with the Chief Complaint, ROS, and Past Histories independently gathered by the clinical direct support professional and the remaining scribed note accurately describes my personal service to the patient. Medical Decision Making: Problems: Moderate: 2+ stable chronic illnesses Data: Unique test(s) ordered: 3+ Risk: Moderate: Drug management Medical Decision Making Level: 4 - Moderate Kenn Beauchamp MD The documentation for this note was completed by Lupe Sapp Ma acting as scribe for Kenn Beauchamp MD. November 10, 2021 9:09 AM. Lupe Sapp Ma documented in this encounterMem[facility]* Diagnosis Essential hypertension, benign- Primary Bilateral leg edema Edema Hypothyroidism, unspecified type Hyperlipidemia, mixed Mixed hyperlipidemia Trigeminal neuralgia [facility] [place] [facility]* Diagnosis Hypothyroidism, unspecified type [facility] [place] [facility]* Diagnosis Essential hypertension, benign- Primary Obesity, Class I, BMI 30-34.9 Obesity, unspecified Bilateral leg edema Edema Hypothyroidism, unspecified type Trigeminal neuralgia Hyperlipidemia, mixed Mixed hyperlipidemia Acute bronchitis, unspecified organism Muscle strain of gluteal region, unspecified laterality, initial encounter documented [facility] this [facility] [place] [facility]* Diagnosis Essential hypertension, benign documented [facility] [place] [facility]* Diagnosis Onset Date Resolution Status Bilateral lower extremity edema acute Dyspnea acute Essential hypertension acute Hyperlipidemia acute Secondary pulmonary arterial hypertension acute [facility] Work Phone: Evaluation note* Diagnosis COVID- Primary documented in this encounter [facility] note* Diagnosis Onset Date Resolution Status Bilateral lower extremity edema acute Dyspnea acute Essential hypertension acute Hyperlipidemia acute Secondary pulmonary arterial hypertension acute Acute biliary pancreatitis a cute Cholelithiasis acute Elevated liver enzymes acute Secondary pulmonary arterial hypertension acute [facility] Work Phone: Evaluation note* Diagnosis Onset Date Resolution Status Bilateral lower extremity edema acute Dyspnea acute Essential hypertension acute Hyperlipidemia acute Secondary pulmonary arterial hypertension acute Acute biliary pancreatitis a cute Cholelithiasis acute Elevated liver enzymes acute Hypokalemia acute Secondary pulmonary arterial hypertension acute Status post cholecystectomy acute Transaminitis acute [facility] Work Phone: Evaluation note* Diagnosis Acute midline low back pain with right-sided sciatica- Primary Spinal stenosis of lumbar region, unspecified whether neurogenic claudication present documented [facility] this encounter [facility] [place] [facility]* Diagnosis Hypothyroidism, unspecified type documented [facility] [place] [facility]* Diagnosis Essential hypertension, benign- Primary Hypothyroidism, unspecified type Hyperlipidemia, mixed Mixed hyperlipidemia Bilateral leg edema Edema Spinal stenosis of lumbar region, unspecified whether neurogenic claudication present Trigeminal neuralgia Dizziness Dizziness and giddiness Unspecified sleep apnea documented [facility] this [facility] [place] [facility]* Diagnosis Essential hypertension, benign documented [facility] [place] [facility]* Diagnosis Essential hypertension, benign- Primary Trigeminal neuralgia Hypothyroidism, unspecified type Hyperlipidemia, mixed Mixed hyperlipidemia Elevated glucose Other abnormal glucose Bilateral leg edema Edema Unspecified sleep apnea Dizziness Dizziness and giddiness documented in this encounter [facility] note* Diagnosis Trigeminal neuralgia [facility] Diagnosis Bilateral leg edema Edema [facility] [place] [facility]* Diagnosis Bilateral leg edema Edema [facility] [place] [facility]* Diagnosis Hypothyroidism, unspecified type [facility] this [facility] [place] [facility]* Diagnosis Essential hypertension, benign Encounter for post surgical wound check- Primary Pseudomeningocele Disorders of meninges, not elsewhere classified Trigeminal neuralgia Essential hypertension, benign Pseudomeningocele Disorders of meninges, not elsewhere classified Trigeminal neuralgia Trigeminal neuralgia- Primary Essential hypertension, benign Screening for depression Encounter for screening examination for other mental health and behavioral disorders Encounter for immunization Need for other specified prophylactic vaccination against single bacterial disease Need for vaccination Need for prophylactic vaccination and inoculation against unspecified single disease Hypothyroidism, unspecified type Hyperlipidemia, mixed Mixed hyperlipidemia Bilateral leg edema Edema Elevated glucose Other abnormal glucose [facility] this [facility] [place] [facility]* Diagnosis Essential hypertension, benign Encounter for post surgical wound check- Primary Pseudomeningocele Disorders of meninges, not elsewhere classified Trigeminal neuralgia Essential hypertension, benign Pseudomeningocele Disorders of meninges, not elsewhere classified Trigeminal neuralgia Chest tightness- Primary Other chest pain SOB (shortness of breath) Shortness of breath Dizziness Dizziness and giddiness Mitral annular calcification Mitral valve disorders [facility] [place] [facility]* Diagnosis Essential hypertension, benign Encounter for post surgical wound check- Primary Pseudomeningocele Disorders of meninges, not elsewhere classified Trigeminal neuralgia Essential hypertension, benign Pseudomeningocele Disorders of meninges, not elsewhere classified Trigeminal neuralgia Left sided sciatica- Primary Sciatica documented in this [facility] [place] [facility]* Diagnosis Essential hypertension, benign Encounter for post surgical wound check- Primary Pseudomeningocele Disorders of meninges, not elsewhere classified Trigeminal neuralgia Essential hypertension, benign Pseudomeningocele Disorders of meninges, not elsewhere classified Trigeminal neuralgia Left sided sciatica Sciatica documented in this [facility] [place] [facility]* Diagnosis Essential hypertension, benign Encounter for post surgical wound check- Primary Pseudomeningocele Disorders of meninges, not elsewhere classified Trigeminal neuralgia Essential hypertension, benign Pseudomeningocele Disorders of meninges, not elsewhere classified Trigeminal neuralgia Essential hypertension, benign- Primary Hyperlipidemia, mixed Mixed hyperlipidemia Elevated glucose Other abnormal glucose Hypothyroidism, unspecified type Bilateral leg edema Edema Trigeminal neuralgia Dizziness Dizziness and giddiness Spinal stenosis of lumbar region, unspecified whether neurogenic claudication present Unspecified sleep apnea History of meningioma of the brain History of resection of meningioma Other postprocedural status documented [facility] this [facility]* Diagnosis Essential hypertension, benign Encounter for post surgical wound check- Primary Pseudomeningocele Disorders of meninges, not elsewhere classified Trigeminal neuralgia Essential hypertension, benign Pseudomeningocele Disorders of meninges, not elsewhere classified Trigeminal neuralgia Trigeminal neuralgia Dizziness Dizziness and giddiness History of resection of meningioma Other postprocedural status documented in this encounter [facility] Author Dr. Hinojosa [facility] August 30, 2022 9:14pm Note Date/Time August 30, 2022 9:1 4pm [facility] Medical Records Department [address] [place] [address] H&P Exam - Hospitalist 08/30/222055 MR#: [id number] Acct: [id number] Name: KATE OREILLY Rep #:[id number] 1945 77 From: Ella Hinojosa MD PCP: Kenn Beauchamp MD Status:ADM IN Location: [facility] [id number] HPI - General General Date of Admission: 08/30/22 Date of Service: 08/30/22 Chief Complaint: Abd pain HPI Narrative KATE OREILLY, is a 77 F with a history of SREEKANTH with CPAP, pulmonary arterial hypertension, hypertension, cholelithiasis who presented to [facility] 08/30/2022 with 1 day of epigastric pain. In ED she was found to have elevated bilirubin as well as liver enzymes and a lipase of 23,197. GI and surgery contacted who recommended admission and she will be seen in consult. Hospitalist consulted for admission. Patient seen with daughter at bedside. She reports she was in her usual health until last night when she climbed up herstairs and lay down in bed when she developed significant epigastric pain. Had difficulty eating and drinking and has had some gagging and nausea and the pain did not improve prompting ED visit. Had 3 small bowel movements yesterday without relief of pain. Denies having this happen previously. Denies alcohol use. Reports her pain is not worsening and might be slightly better though still significant. Has chronic shortness of breath and follows with Dr. Cruz does not feel this is changed, did not endorse any other acute complaints atthis time. [facility] Medical History Diverticulosis Essential hypertension Hyperlipidemia Hypothyroidism Meningioma, cerebral Obesity Obstructive sleep apnea Secondary pulmonary arterial hypertension Trigeminal neuralgia Home Medications pregabalin 100 mg capsule (Lyrica) 100 mg PO TID 05/12/21 [History Last Taken Unknown] montelukast 10 mg tablet (Singulair) 10 mg PO QHS 08/13/21 [History Last Taken Unknown] multivitamin (Daily Multi-Vitamin tablet) 1 tab PO DAILY 08/13/21 [History Last Taken Unknown] furosemide 40 mg tablet (Lasix) 40 mg PO BID 11/11/21 [History Last Taken Unknown] levothyroxine 100 mcg tablet 100 mcg PO DAILY 11/11/21 [History Last Taken Unknown] losartan 100 mg tablet 100 mg PO DAILY #90 tabs 03/30/22 [Rx Last Taken Unknown] Allergy/AdvReac Type Severity Reaction Status Date / Time amoxicillin Allergy rash Verified 08/30/22 13:30 carbamazepine Allergy rash Verified 08/30/22 13:30 rofecoxib [From Vioxx] Allergy rash Verified 08/30/22 13:30 acetaminophen [From Percocet] AdvReac Vomiting Verified 08/30/22 13:30 codeine AdvReac vomiting Verified 08/30/22 13:30 fentanyl AdvReac Vomiting Verified 08/30/22 13:30 gabapentin [From Neurontin] AdvReac intolerance Verified 08/30/22 13:30 hydrocodone [From Vicodin] AdvReac Vomiting Verified 08/30/22 13:30 meperidine [From Demerol] AdvReac Vomiting Verified 08/30/22 13:30 oxycodone [From Percocet] AdvReac Vomiting Verified 08/30/22 13:30 topiramate [From Topamax] AdvReac intolerance Verified 08/30/22 13:30 tramadol AdvReac Vomiting Verified 08/30/22 13:30 Family History Mother CVA (cerebral vascular accident) Heart disease PPM Father Heart disease valve replacement, PPM Brother Heart disease Brother Heart disease Sister Heart disease Sister Colon cancer Sister Breast cancer Daughter Breast cancer Surgical History (Reviewed 05/21/22 @ 09:26 by Sarah Kasper DIGITAL WATCH ASSEMBLER, DIGITAL WATCH ASSEMBLER-C) History of cataract surgery History of colonoscopy History of craniotomy (2010) History of right and left heart catheterization (09/01/21) [place] (trigeminal neuralgia) (2019) Social History Smoking Status: Never smoker alcohol intake: never substance use type: does not use caffeine: Yes Type: coffee Number of servings: 4 ROS ROS Narrative General: Denies fever or chills HENT: Denies headache EYES: Did not endorse acute changes in vision Resp: Chronic shortness of breath Cardiac: Denies chest pain GI: Does have abdominal pain and epigastric, 3 small bowel movements yesterday, no diarrhea : Denies changes in urination Extremity: Denies any changes in swelling MSK: Feels generally unwell, has some chronic back pain Neuro: Denies any numbness, denies tingling, has chronic trigeminal pain Heme: Denies any bleeding or bruising Skin: Denies rashes Psychiatric: No complaints voiced Vital Signs Vital Signs Vital Signs: 08/30/22 13:07 08/30/22 13:30 08/30/22 17:16 Temperature 97.2 F L 97.6 F L Temperature Source Temporal Temporal Pulse Rate 117 H 100 78 Respiratory Rate 18 18 16 Blood Pressure 181/79 H 158/79 H 131/68 H Blood Pressure Mean 113 105 89 Pulse Ox 98 98 96 Oxygen Delivery Method Room Air Room Air Room Air 08/30/22 19:08 Temperature Temperature Source Pulse Rate Respiratory Rate Blood Pressure 122/59 H Blood Pressure Mean 80 Pulse Ox Oxygen Delivery Method Weight Weight: 98.067 kg Body Mass Index (BMI) 31.9 Physical Exam Narrative General: Alert, oriented, no apparent distress HEENT: Atraumatic, normocephalic Eyes: Anicteric, normal conjunctiva, extraocular movements grossly intact Neck: Supple Respiratory: Clear to auscultation bilaterally, normal respiratory effort Cardiovascular: Regular rate and rhythm GI: Tender diffusely but primarily in the epigastric region, no rebound, guarding, rigidity, decreased bowel sounds Extremities: No edema Musculoskeletal: Moving all extremities Neuro: No overt focal neurological deficits Skin: No rashes appreciated Psych: Cooperative Results Lab / Micro Data Result Diagrams: 08/30/22 15:28 08/30/22 18:25 Labs: Laboratory Results - last 24 hr 08/30/22 15:28: WBC 7.9, RBC 4.99, Hgb 14.1, Hct 44.9, MCV 90.0, MCH 28.3, MCHC 31.4 L, RDW Std Deviation 44.9 H, RDW Coeff of Rajinder 13.7, Plt Count , Immature Gran % (Auto) 0.400, Neut % (Auto) 69.2, Lymph % (Auto) 24.3, [place] % (Auto) 5.6,Eos % (Auto) 0.1, Baso % (Auto) 0.4, Absolute Neuts (auto) 5.5, Absolute Lymphs (auto) 1.92, Nucleated RBC % 0, Differential Comment SCANNED, Platelet Estimate ADEQUATE 08/30/22 15:28: Sodium Cancelled, Potassium Cancelled, Chloride Cancelled, Carbon Dioxide Cancelled, Anion Gap Cancelled, BUN Cancelled, Creatinine Cancelled, Estim Creat Clear Calc Cancelled, Est GFR (MDRD) Af Amer Cancelled, Est GFR (MDRD) Non-Af Cancelled, BUN/Creatinine Ratio Cancelled, Glucose Cancelled, Calcium Cancelled, Total Bilirubin Cancelled, AST Cancelled, ALT Cancelled, Alkaline Phosphatase Cancelled, Total Protein Cancelled, Albumin Cancelled, Globulin Cancelled, Albumin/Globulin Ratio Cancelled, Lipase Cancelled 08/30/22 16:27: Sodium Cancelled, Potassium Cancelled, Chloride Cancelled, Carbon Dioxide Cancelled, Anion Gap Cancelled, BUN Cancelled, Creatinine Cancelled, Estim Creat Clear Calc Cancelled, Est GFR (MDRD) Af Amer Cancelled, Est GFR (MDRD) Non-Af Cancelled, BUN/Creatinine Ratio Cancelled, Glucose Cancelled, Calcium Cancelled, Total Bilirubin Cancelled, AST Cancelled, ALT Cancelled, Alkaline Phosphatase Cancelled, Total Protein Cancelled, Albumin Cancelled, Globulin Cancelled, Albumin/Globulin Ratio Cancelled, Lipase Cancelled 08/30/22 17:02: Urine Color Yellow, Urine Clarity Clear, Urine pH 8.0, Ur Specific Man 1.015, Urine Protein Negative, Urine Glucose (UA) Normal, UrineKetones Negative, Urine Occult Blood Negative, Urine Nitrite Negative, Urine Bilirubin Negative, Urine Urobilinogen Normal, Ur Leukocyte Esterase 25 H, UrineRBC 0 SEEN, Urine WBC 0 SEEN, Ur Squamous Epith Cells 0 SEEN, Urine Bacteria 0 SEEN, Urine Mucus 0 SEEN 08/30/22 18:25: Sodium 143, Potassium 4.2, Chloride 107, Carbon Dioxide 28.0, Anion Gap 8, BUN 16, Creatinine 0.96, Estim Creat Clear Calc 51.29, Est GFR (MDRD) Af Amer 73, Est GFR (MDRD) Non-Af 60, BUN/Creatinine Ratio 16.7, Glucose 121 H, Calcium 8.2 L, Total Bilirubin 1.40 H, AST 715 H, ALT 566 H, Alkaline Phosphatase 112, Total Protein 6.3 L, Albumin 3.2, Globulin 3.1, Albumin/Globulin Ratio 1.0, Lipase 14176 H Radiology Impression Gallbladder Ultrasound 08/30/22 13:42 IMPRESSION: Cholelithiasis with nonspecific distention. No sonographic findings of acute cholecystitis. Enlarged fatty liver. Electronically Signed: Corbin Valiente MD at 17:27 EDT , Chest X-Ray 08/30/22 15:10 IMPRESSION: No radiographic evidence of acute cardiopulmonary disease. Electronically Signed: Corbin Valiente MD at 15:55 EDT , Abdomen/Pelvis CT 08/30/22 17:58 IMPRESSION: Finding consistent with acute interstitial edematous pancreatitis. Electronically Signed: Corbin Valiente MD at 19:04 EDT , Assessment & Plan Assessment/Plan (1) Acute biliary pancreatitis: (2) Secondary pulmonary arterial hypertension: PLAN: Plan #Acute gallstone pancreatitis -Gallbladder ultrasound demonstrated multiple gallstones and gallbladder distention to 10.4 cm with no increased wall thickness or pericholecystic fluid but has elevated bili as well as liver function tests and a lipase of 23,197 -CT of the abdomen with acute interstitial edematous pancreatitis -Hematocrit 44.9, BUN 16 with creatinine of 0.96 -N.p.o., continue maintenance fluids, pain control -Hold Lasix -GI and surgery consults -No signs or symptoms of infection, will hold on prophylactic antibiotics #Hypothyroidism -Continue Synthroid daily #SREEKANTH/secondary pulmonary arterial hypertension -CPAP nightly -Last echo demonstrated EF of 65% with RVSP estimated to be 40 mmHg -Follows with Dr. Stroud as an outpatient -Is on Lasix twice daily, will hold this given presenting problem and monitor clinically -Continue to assess for ability to DC fluids or for signs and symptoms of overload #DVT ppx: Lovenox subq Ella Hinojosa MD Time spent in the patient's overall evaluation,decision-making process, review of diagnostic data, adjustment of management, discussion with other providers, nursing nursing and ancillary staff involved in patient's care documentation, 60Minutes Charges/Coding Visit Charges Inpatient E&M: 75236 Init Hosp L2 08/30/222113 <Electronically signed by Ella Hinojosa MD> Cosigner Signature (if applicable): CC: Dr. Ella Hinojosa MD; Kenn Beauchamp MD~ Signed [facility] Work Phone: Rewfzv for referral (narrative)No reason for referral information availableWDayton [facility] Work Phone: Reason for visit Narrative* Diagnostic Procedure Only (Routine) - Closed Specialty Diagnoses / Procedures Referred By Rafal t Referred To Contact XR IMAGING Diagnoses Left sided sciatica Procedures XR LUMBAR GENERAL 3V AP/LAT/L5-S1 RADEX SPINE LUMBOSACRAL 2/3 VIEWS Bessy Yates, [employer] [address] [place] [address] Phone: tel: fax: [place] [address] Referral ID Status Reason Start Date Expiration Date V isits Requested Visits Authorized [id number] Closed Auto-Generate d Referral 09/01/2024 10/01/2025 1 1 [facility] for visit Narrative* MRI/CT (Routine) - Closed Specialty Diagnoses / Procedures Referred By Contac t Referred To Contact MR IMAGING Diagnoses Trigeminal neuralgia Dizziness History of resection of meningioma Procedures MRI BRAIN WO/W IVCON MRI BRAIN BRAIN STEM W/O W/CONTRAST MATERIAL Kenn Beauchamp MD [address] [place] [address] Phone: tel: fax: [place] [phone] Referral ID Status Reason Start Date Expiration Date V isits Requested Visits Authorized [id number] Closed Auto-Generate d Referral 09/12/2024 11/11/2024 1 1 [facility] Summary Purpose Family History No Family History Records Found Relationship Condition Age at Onset Recorded Date/T dominique mother Cerebrovascular accident (CVA) Unknown Cardiac disease Unknown father Cardiac disease Unknown brother Cardiac disease Unknown sister Cardiac disease Unknown sister Malignant neoplasm of colon Unknown sister Malignant neoplasm of breast Unknown daughter Malignant neoplasm of breast Unknown Advance Directives No Advanced Directives Records FoundDocuments on File Type Date Recorded Patient 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 Advance Directive(s) Advance Directive(s) 06/19/2021 11:44 AM Advance Directive(s) 07/26/2019 12:18 PM Advance Directive(s) 05/12/2019 5:55 AM Advance Directive(s) 01/23/2019 11:41 AM Advance Directive(s) 09/09/2010 10:02 PM Documents on File Type Date Recorded Patient 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 Advance Directive(s) 09/09/2010 10:02 PM Advance Directive Response Recorded Date/ Time Advance Directives No August 25 10:06am Living Will No August 25, 2021 10:06am Power of Mortgage Lender No August 25 10:06am Advance Directive Response Recorded Date/ Time Name of Medical Power of Mortgage Lender DEAN MORALES ER- DAUGHTER August 30, 2022 1:32pm Advance Directives No August 25 11:06am Living Will No August 30, 2022 1:32pm Power of Mortgage Lender Yes August 30 1:32pm Advance Directive Response Recorded Date/ Time Name of Medical Power of Mortgage Lender DEAN MORALES ER- DAUGHTER August 30, 2022 10:03pm Advance Directives No August 25 11:06am Living Will No August 30, 2022 10:03pm Power of Mortgage Lender Yes August 30 10:03pm Documents on File Type Date Recorded Patient 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 anation Advance Directive(s) 09/09/2010 10:02 PM Advance Directive Response Recorded Date/ Time Advance Directives No August 25 11:06am Hospital Course Note HNO ID: [id number] Author: Coby [place] Service: Hospital Medicine Author Type: Physician Type: Discharge Summary Filed: 05/15/2019 12:40 PM Note Text: DISCHARGE SUMMARY PATIENT NAME: Kate Oreilly Code Status: Not on file Highest Readmission Risk Score: 9 The 30 day readmissions risk score is derived from an internally validated risk model which evaluates patient level characteristics, utilization history, medication orders and lab results up until the day of discharge. Patients with a score of 40 or above are considered highest risk for readmission. Specific patient level drivers will be listed at the bottom of the summary. Admission Information Admission Information ADMIT DATE: 05/12/2019 DISCHARGE DATE: 05/15/2019 MY DOCTORS AND MEDICAL TEAM: My Main Hospital Doctor: Yasmani [place] Primary Care Provider: Kenn Beauchamp MD My Medical Team Members: Treatment Team: Attending Provider: Yasmani [place] Consulting: Carmelo Bhatt (more content not included)... Note HNO ID: [id number] Author: Tai Tenorio (Lora) LORA Martinez Service: Neurosurgery Author Type: Physician Exercise Equipment Repair Technician Type: Discharge Summary Filed: 08/08/2019 12:19 PM Note Text: Attestation signed by Milli Juárez at 08/09/2019 7:38 AM Staff Addendum: Agree with above. Milli Juárez MD Neurosurgery August 09, 2019 7:38 AM DISCHARGE SUMMARY PATIENT NAME: Kate Oreilly Code Status: Not on file DISCHARGE DATE: August 08, 2019 Highest Readmission Risk Score: 6 The 30 day readmissions risk score is derived from an internally validated risk model which evaluates patient level characteristics, utilization history, medication orders and lab results up until the day of discharge. Patients with a score of 40 or above are considered highest risk for readmission. Specific patient level drivers will be listed at the bottom of the (more content not included)... Note HNO ID: [id number] Author: June Juárez Service: Neurosurgery Author Type: Physician Type: Procedures Filed: 07/27/2019 9:46 PM Note Text: BEDSIDE PROCEDURE NOTE PROCEDURE DATE: July 27, 2019 PROCEDURE START TIME: 4:45PM PRIMARY PROCEDURALIST: Milli Juárez MD [employer]ING [employer]VAGE WORKER(S): LORA Mccoy INFORMED CONSENT: Informed Consent obtained and on the chart UNIVERSAL PROTOCOL / SAFETY CHECKLIST Sign in Communication: Completed Time Out: Team Confirms the Correct Patient, Correct Procedure, Correct Site and Site Marking, Correct Position (if applicable), Prep and Dry Time (if applicable). Time: 4:45PM Affirmation of Time Out: YES Sign Out Discussion: Completed PROCEDURE: FINE NEEDLE ASPIRATION Aspiration of: right pseudomeningocele posterior auricular Indication: Definitive diagnosis of pseudomeningocele Analgesia/Sedation: Fentanyl 50mcg Procedure: In an upright position the skin was cleansed with betadine and sterilely draped. A #25 angiocatheter needle attached to a 20 cc syringe was inserted (more content not included)... Note HNO ID: [id number] Author: June Juárez Service: Neurosurgery Author Type: Physician Type: Procedures Filed: 07/28/2019 9:28 PM Note Text: BEDSIDE PROCEDURE NOTE PROCEDURE DATE: July 28, 2019 PROCEDURE START TIME: 8:45PM PRIMARY PROCEDURALIST: Milli Juárez MD [employer]ING [employer]VAGE WORKER(S): INFORMED CONSENT: Informed Consent obtained and on the chart UNIVERSAL PROTOCOL / SAFETY CHECKLIST Sign in Communication: Completed Time Out: Team Confirms the Correct Patient, Correct Procedure, Correct Site and Site Marking, Correct Position (if applicable), Prep and Dry Time (if applicable). Time: 8:45PM Affirmation of Time Out: YES Sign Out Discussion: Completed PROCEDURE: The lumbar region was prepped and draped in usual sterile fashion. The area was infiltrated with 1% lidocaine. A 14 g touy needle used to access intrathecal space at approx L4/5. Brisk CSF flow noted, clear. The catheter advanced to 30cm at the skin and secured to patient's skin using 3-0 Nylon. Pt tolerated procedure well, no complications. Dennis (more content not included)... Procedure Findings Note HNO ID: [id number] Author: June Juárez Service: Neurosurgery Author Type: Physician Type: Procedures Filed: 07/27/2019 9:46 PM Note Text: BEDSIDE PROCEDURE NOTE PROCEDURE DATE: July 27, 2019 PROCEDURE START TIME: 4:45PM PRIMARY PROCEDURALIST: Milli Juárez MD [employer]ING [employer]VAGE WORKER(S): LORA Mccoy INFORMED CONSENT: Informed Consent obtained and on the chart UNIVERSAL PROTOCOL / SAFETY CHECKLIST Sign in Communication: Completed Time Out: Team Confirms the Correct Patient, Correct Procedure, Correct Site and Site Marking, Correct Position (if applicable), Prep and Dry Time (if applicable). Time: 4:45PM Affirmation of Time Out: YES Sign Out Discussion: Completed PROCEDURE: FINE NEEDLE ASPIRATION Aspiration of: right pseudomeningocele posterior auricular Indication: Definitive diagnosis of pseudomeningocele Analgesia/Sedation: Fentanyl 50mcg Procedure: In an upright position the skin was cleansed with betadine and sterilely draped. A #25 angiocatheter needle attached to a 20 cc syringe was inserted (more content not included)... Note HNO ID: [id number] Author: June Juárez Service: Neurosurgery Author Type: Physician Type: Procedures Filed: 07/28/2019 9:28 PM Note Text: BEDSIDE PROCEDURE NOTE PROCEDURE DATE: July 28, 2019 PROCEDURE START TIME: 8:45PM PRIMARY PROCEDURALIST: Milli Juárez MD [employer]ING [employer] WORKER(S): INFORMED CONSENT: Informed Consent obtained and on the chart UNIVERSAL PROTOCOL / SAFETY CHECKLIST Sign in Communication: Completed Time Out: Team Confirms the Correct Patient, Correct Procedure, Correct Site and Site Marking, Correct Position (if applicable), Prep and Dry Time (if applicable). Time: 8:45PM Affirmation of Time Out: YES Sign Out Discussion: Completed PROCEDURE: The lumbar region was prepped and draped in usual sterile fashion. The area was infiltrated with 1% lidocaine. A 14 g touy needle used to access intrathecal space at approx L4/5. Brisk CSF flow noted, clear. The catheter advanced to 30cm at the skin and secured to patient's skin using 3-0 Nylon. Pt tolerated procedure well, no complications. Dennis (more content not included)... Chief Complaint and Reason for Visit Chief Complaint 6 M FU Reason for Visit Bilateral lower extr emity edema Dyspnea Essential hypertension Hyperlipidemia Secondary pulmonary arterial hypertension Chief Complaint 6 M FU ACUTE PANCREATITIS ACUTE PANCREATITIS Reason for Visit Bilateral lower extr emity edema Dyspnea Essential hypertension Hyperlipidemia Secondary pulmonary arterial hypertension Acute biliary pancreatitis Cholelithiasis Elevated liver enzymes Secondary pulmonary arterial hypertension Chief Complaint 6 M FU ACUTE PANCREATITIS ACUTE PANCREATITIS ACUTE PANCREATITIS ACUTE PANCREATITIS PREOP ACUTE PANCREATITIS ACUTE PANCREATITIS ACUTE PANCREATITIS ACUTE PANCREATITIS ACUTE PANCREATITIS ACUTE PANCREATITIS ACUTE PANCREATITIS ACUTE PANCREATITIS ACUTE PANCREATITIS ACUTE PANCREATITIS ACUTE PANCREATITIS ACUTE PANCREATITIS ACUTE PANCREATITIS ACUTE PANCREATITIS ACUTE PANCREATITIS ACUTE PANCREATITIS Reason for Visit Bilateral lower extr emity edema Dyspnea Essential hypertension Hyperlipidemia Secondary pulmonary arterial hypertension Acute biliary pancreatitis Cholelithiasis Elevated liver enzymes Hypokalemia Secondary pulmonary arterial hypertension Status post cholecystectomy Transaminitis Chief Complaint Admit Date PRO-BTNP July 10, 2024 1 1:20am Dyspnea, unspecified August 04, 2024 2:47pm Chest Tightness/SOB/Mitral Annular Calci fication August 18, 2024 7:51am HYPOXEMIA August 31, 2024 1:1 0pm Reason for Visit Admit Date Chest pain August 18, 2024 7:51am Essential hypertension August 18 7:51am Secondary pulmonary arterial hypertensio n August 18, 2024 7:51am Chief Complaint Admit Date PRO-BTNP July 10, 2024 1 1:20am Dyspnea, unspecified August 04, 2024 2:47pm Chest Tightness/SOB/Mitral Annular Calci fication August 18, 2024 7:51am HYPOXEMIA August 31, 2024 1:1 0pm CP September 14, 2024 6:4 5am CP September 14, 2024 2:3 5pm Chief Complaint Admit Date Dyspnea, unspecified August 04, 2024 2:47pm Chest Tightness/SOB/Mitral Annular Calci fication August 18, 2024 7:51am HYPOXEMIA August 31, 2024 1:1 0pm CP September 14, 2024 6:4 5am CP September 14, 2024 2:3 5pm 3 M FU November 16, 2024 7:47a m Reason for Visit Admit Date Chest pain August 18, 2024 7:51am Essential hypertension August 18 7:51am Secondary pulmonary arterial hypertensio n August 18, 2024 7:51am Chest pain November 16, 2024 7:47a m Essential hypertension November 16, 2024 7: 47am Secondary pulmonary arterial hypertensio n November 16, 2024 7:47am Additional Source Comments INFORMATION SOURCE (unrecogn ized section and content) DATE CREATED AUTHOR 11/04/2019 [facility] DATE CREATED AUTHOR AUTHOR'S ORGANIZ ATION 04/29/2020 [facility] DATE CREATED AUTHOR AUTHOR'S ORGANIZ ATION 09/19/2020 [facility] DATE CREATED AUTHOR AUTHOR'S ORGANIZ ATION 06/20/2021 [facility] DATE CREATED AUTHOR AUTHOR'S ORGANIZ ATION 09/24/2024 [facility] DATE CREATED AUTHOR AUTHOR'S ORGANIZ ATION 12/12/2024 [facility] Source Comments (unrecognize d section and content) In the event this informatio n is protected by the Federal Confidentiality of Alcohol and Drug Abuse Patient Records regulations: The Federal rules restrict any use of the information to criminally investigate or prosecute any alcohol or drug abuse patient.[facility] the event this information is protected by the Federal Confidentiality of Alcohol and Drug Abuse Patient Records regulations: The Federal rules restrict any use of the information to criminally investigate or prosecute any alcohol or drug abuse patient.[facility] the event this information is protected by the Federal Confidentiality of Alcohol and Drug Abuse Patient Records regulations: The Federal rules restrict any use of the information to criminally investigate or prosecute any alcohol or drug abuse patient.[facility] the event this information is protected by the Federal Confidentiality of Alcohol and Drug Abuse Patient Records regulations: The Federal rules restrict any use of the information to criminally investigate or prosecute any alcohol or drug abuse patient.[facility] the event this information is protected by the Federal Confidentiality of Alcohol and Drug Abuse Patient Records regulations: The Federal rules restrict any use of the information to criminally investigate or prosecute any alcohol or drug abuse patient.[facility] the event this information is protected by the Federal Confidentiality of Alcohol and Drug Abuse Patient Records regulations: The Federal rules restrict any use of the information to criminally investigate or prosecute any alcohol or drug abuse patient.[facility] Hospital[facility] the event this information is protected by the Federal Confidentiality of Alcohol and Drug Abuse Patient Records regulations: The Federal rules restrict any use of the information to criminally investigate or prosecute any alcohol or drug abuse patient.[facility] Hospital[facility] the event this information is protected by the Federal Confidentiality of Alcohol and Drug Abuse Patient Records regulations: The Federal rules restrict any use of the information to criminally investigate or prosecute any alcohol or drug abuse patient.[facility] Hospital[facility] the event this information is protected by the Federal Confidentiality of Alcohol and Drug Abuse Patient Records regulations: The Federal rules restrict any use of the information to criminally investigate or prosecute any alcohol or drug abuse patient.[facility] Hospital[facility] the event this information is protected by the Federal Confidentiality of Alcohol and Drug Abuse Patient Records regulations: The Federal rules restrict any use of the information to criminally investigate or prosecute any alcohol or drug abuse patient.[facility] Hospital[facility] the event this information is protected by the Federal Confidentiality of Alcohol and Drug Abuse Patient Records regulations: The Federal rules restrict any use of the information to criminally investigate or prosecute any alcohol or drug abuse patient.[facility] Hospital[facility] the event this information is protected by the Federal Confidentiality of Alcohol and Drug Abuse Patient Records regulations: The Federal rules restrict any use of the information to criminally investigate or prosecute any alcohol or drug abuse patient.[facility] Hospital[facility] the event this information is protected by the Federal Confidentiality of Alcohol and Drug Abuse Patient Records regulations: The Federal rules restrict any use of the information to criminally investigate or prosecute any alcohol or drug abuse patient.[facility] Hospital[facility] the event this information is protected by the Federal Confidentiality of Alcohol and Drug Abuse Patient Records regulations: The Federal rules restrict any use of the information to criminally investigate or prosecute any alcohol or drug abuse patient.[facility] Hospital[facility] the event this information is protected by the Federal Confidentiality of Alcohol and Drug Abuse Patient Records regulations: The Federal rules restrict any use of the information to criminally investigate or prosecute any alcohol or drug abuse patient.[facility] HospitalIn the event this information is protected by the Federal Confidentiality of Alcohol and Drug Abuse Patient Records regulations: The Federal rules restrict any use of the information to criminally investigate or prosecute any alcohol or drug abuse patient.[facility] HospitalIn the event this information is protected by the Federal Confidentiality of Alcohol and Drug Abuse Patient Records regulations: The Federal rules restrict any use of the information to criminally investigate or prosecute any alcohol or drug abuse patient.[facility] HospitalIn the event this information is protected by the Federal Confidentiality of Alcohol and Drug Abuse Patient Records regulations: The Federal rules restrict any use of the information to criminally investigate or prosecute any alcohol or drug abuse patient.[facility] HospitalIn the event this information is protected by the Federal Confidentiality of Alcohol and Drug Abuse Patient Records regulations: The Federal rules restrict any use of the information to criminally investigate or prosecute any alcohol or drug abuse patient.[facility] HospitalIn the event this information is protected by the Federal Confidentiality of Alcohol and Drug Abuse Patient Records regulations: The Federal rules restrict any use of the information to criminally investigate or prosecute any alcohol or drug abuse patient.[facility] HospitalIn the event this information is protected by the Federal Confidentiality of Alcohol and Drug Abuse Patient Records regulations: The Federal rules restrict any use of the information to criminally investigate or prosecute any alcohol or drug abuse patient.[facility] HospitalIn the event this information is protected by the Federal Confidentiality of Alcohol and Drug Abuse Patient Records regulations: The Federal rules restrict any use of the information to criminally investigate or prosecute any alcohol or drug abuse patient.[facility] HospitalIn the event this information is protected by the Federal Confidentiality of Alcohol and Drug Abuse Patient Records regulations: The Federal rules restrict any use of the information to criminally investigate or prosecute any alcohol or drug abuse patient.[facility] Hospital[facility] the event this information is protected by the Federal Confidentiality of Alcohol and Drug Abuse Patient Records regulations: The Federal rules restrict any use of the information to criminally investigate or prosecute any alcohol or drug abuse patient.[facility] HospitalIn the event this information is protected by the Federal Confidentiality of Alcohol and Drug Abuse Patient Records regulations: The Federal rules restrict any use of the information to criminally investigate or prosecute any alcohol or drug abuse patient.[facility] HospitalIn the event this information is protected by the Federal Confidentiality of Alcohol and Drug Abuse Patient Records regulations: The Federal rules restrict any use of the information to criminally investigate or prosecute any alcohol or drug abuse patient.[facility] HospitalIn the event this information is protected by the Federal Confidentiality of Alcohol and Drug Abuse Patient Records regulations: The Federal rules restrict any use of the information to criminally investigate or prosecute any alcohol or drug abuse patient.[facility] HospitalIn the event this information is protected by the Federal Confidentiality of Alcohol and Drug Abuse Patient Records regulations: The Federal rules restrict any use of the information to criminally investigate or prosecute any alcohol or drug abuse patient.[facility] Reason for Visit (unrecogniz ed section and content) Reason Comments F/U 3 Month Reason Onset Date Comments Refill Request 01/12/2022 Reason Onset Date Comments Refill Request 03/30/2022 Reason Comments Covid Positive Reason Onset Date Comments Transition Of Care 09/07/2022 Reason Comments Pain Sciatica right leg Reason Onset Date Comments Refill Request 09/21/2022 Reason Onset Date Comments Refill Request 01/17/2023 Reason Comments F/U 6 Month Reason Comments Refill Request Reason Onset Date Comments Refill Request 10/11/2023 Reason Onset Date Comments Refill Request 12/21/2023 Reason Comments Medication Problem Reason Onset Date Comments Refill Request 01/10/2024 Reason Comments F/U 6 months Reason Comments Patient Update Reason Comments Follow Up SOB,elevated BP Reason Comments Left sciatica pain Reason Comments Acute Visit Left leg sciatica Reason Onset Date Comments Results 09/06/2024 Reason Comments F/U 6 Month Reason Onset Date Comments Refill Request 11/14/2024 Care Teams (unrecognized sec tion and content) Converting Technician Relationship Specialty Start Date End Date Kenn Beauchamp MD [address] [place] [address] PCP - General Family Practice 11/05/14 Converting Technician Relationship Specialty Start Date End Date Kenn Beauchamp MD [address] [place] [address] PCP - General Family Practice 11/05/14 Converting Technician Relationship Specialty Start Date End Date Kenn Beauchamp MD [address] [facility] [place] [address] PCP - General Family Practice 11/05/14 Converting Technician Relationship Specialty Start Date End Date Kenn Beauchamp MD [address] [facility] [place] [address] PCP - General Family Medicine 11/05/14 Converting Technician Relationship Specialty Start Date End Date Kenn Beauchamp MD [address] [place] [address] PCP - General Family Medicine 11/05/14 Team Status: Active Member Role Status Dates Kenn Beauchamp MD Family Provider Active Kenn Beauchamp MD Primary Care Provider Active Team Status: Inactive Member Role Status Dates Kenn Beauchamp MD Primary Care Provider, Referring Provider Active Sarah Kasper DIGITAL WATCH ASSEMBLER, DIGITAL WATCH ASSEMBLER-C Attending Provider Active Team Status: Active Member Role Status Dates Kenn Beauchamp MD Primary Care Provider Active Dr. Nicanor Alvarado MD Emergency Provider Active Dr. Ella Hinojosa MD Admit Provider, At tending Provider, Other Provider Active Dr. Fernando Jean-Baptiste MD Other Provider Active Team Status: Inactive Member Role Status Dates Kenn Beauchamp MD Primary Care Provider Active Sarah Kasper DIGITAL WATCH ASSEMBLER, DIGITAL WATCH ASSEMBLER-C Attending Provider Active Team Status: Active Member Role Status Dates Kenn Beauchamp MD Primary Care Provider Active Dr. Nicanor Alvarado MD Emergency Provider Active Dr. Ella Hinojosa MD Admit Provider, Attending Provid er Active Dr. Fernando Jean-Baptiste MD Other Provider Active Team Status: Active Member Role Status Dates Kenn MONTERROSO MD Family Provider Active Kenn MONTERROSO MD Primary Care Provider Active Team Status: Inactive Member Role Status Dates Kenn MONTERROSO MD Primary Care Provider, Referri ng Provider Active Sarah Kasper DIGITAL WATCH ASSEMBLER, DIGITAL WATCH ASSEMBLER-C Attending Provider Active Team Status: Active Member Role Status Dates Kenn MONTERROSO MD Primary Care Provider Active Dr. Nicanor Alvarado MD Emergency Provider Active Dr. Ella Hinojosa MD Admit Provider, At tending Provider, Other Provider Active Dr. Fernando Jean-Baptiste MD Other Provider Active Team Status: Active Member Role Status Dates Kenn MONTERROSO MD Primary Care Provider Active Dr. Nicanor Alvarado MD Emergency Provider Active Dr. Ella Hinojosa MD Admit Provider, Other Provider A ctive Dr. Fernando Jean-Baptiste MD Attending Provider, Other Provi angel Active Dr. Tyler Coffman DO Other Provider Active Team Status: Active Member Role Status Dates Kenn MONTERROSO MD Primary Care Provider Active Dr. Nicanor Alvarado MD Emergency Provider Active Dr. Ella Hinojosa MD Admit Provider, Other Provider A ctive Dr. Fernando Jean-Baptiste MD Other Provider Active Dr. Tyler Coffman DO Attending Provider, Other Provid er Active Team Status: Active Member Role Status Dates Kenn MONTERROSO MD Primary Care Provider Active Dr. Nicanor Alvarado MD Emergency Provider Active Dr. Ella Hinojosa MD Admit Provider, Other Provider A ctive Dr. Fernando Jean-Baptiste MD Other Provider Active Dr. Tyler Coffman DO Other Provider Active Dr. Robinson Mendenhall DO Attending Provider Active Team Status: Active Member Role Status Dates Kenn MONTERROSO MD Primary Care Provider Active Dr. Gregg Butterfield MD Attending Provider Active Dr. Ella Hinojosa MD Referring Provider Active Team Status: Active Member Role Status Dates Kenn MONTERROSO MD Primary Care Provider Active Dr. Nicanor Alvarado MD Emergency Provider Active Dr. Ella Hinojosa MD Admit Provider, Other Provider A ctive Dr. Fernando Jean-Baptiste MD Other Provider Active Dr. Tyler Coffman DO Other Provider Active Dr. Harvinder Palmer MD Attending Provider Active Team Status: Inactive Member Role Status Dates Kenn MONTERROSO MD Primary Care Provider Active Sarah Kasper DIGITAL WATCH ASSEMBLER, DIGITAL WATCH ASSEMBLER-C Attending Provider Active Team Status: Inactive Member Role Status Dates Kenn MONTERROSO MD Primary Care Provider Active Dr. Nicanor Alvarado MD Emergency Provider Active Dr. Ella Hinojosa MD Admit Provider, Other Provider A ctive Dr. Fernando Jean-Baptiste MD Other Provider Active Dr. Tyler Coffman DO Attending Provider Active Converting Technician Relationship Specialty Start Date End Date Kenn Beauchamp MD [address] [place] [address] PCP - General Family Medicine 11/05/14 Converting Technician Relationship Specialty Start Date End Date Kenn Beauchamp MD [address] [place] [address] PCP - General Family Medicine 11/05/14 Converting Technician Relationship Specialty Start Date End Date Kenn Beauchamp MD [address] [place] [address] PCP - General Family Medicine 11/05/14 Converting Technician Relationship Specialty Start Date End Date Kenn Beauchamp MD [address] [place] [address] PCP - General Family Medicine 11/05/14 Converting Technician Relationship Specialty Start Date End Date Kenn Beauchamp MD [address] [place] [address] PCP - General Family Medicine 11/05/14 Converting Technician Relationship Specialty Start Date End Date Kenn Beauchamp MD [address] [place] [address] PCP - General Family Medicine 11/05/14 Converting Technician Relationship Specialty Start Date End Date Kenn Beauchamp MD [address] [place] [address] PCP - General Family Medicine 11/05/14 Converting Technician Relationship Specialty Start Date End Date Kenn Beauchamp MD [address] [place] [address] PCP - General Family Medicine 11/05/14 Converting Technician Relationship Specialty Start Date End Date Kenn Beauchamp MD [address] [place] [address] PCP - General Family Medicine 11/05/14 Converting Technician Relationship Specialty Start Date End Date Kenn Beauchamp MD [address] [place] [address] PCP - General Family Medicine 11/05/14 Bessy Yates, [employer]REAM MANAGER [address] [place] [address] Construction Lab[employer] Family Medicine 05/28/24 Gary Odell APRN.VALUE STREAM MANAGER [address] [place] [address] Construction Laborer Family Medicine 06/06/24 Converting Technician Relationship Specialty Start Date End Date Kenn Beauchamp MD [address] [place] [address] PCP - General Family Medicine 11/05/14 Bessy Yates, APPLE CHECKER.VALUE STREAM MANAGER [address] [place] [address] Construction Laborer Family Medicine 05/28/24 Gary Odell APRN.VALUE STREAM MANAGER [address] [place] [address] Construction Laborer Family Medicine 06/06/24 Converting Technician Relationship Specialty Start Date End Date Kenn Beauchamp MD [address] [place] [address] PCP - General Family Medicine 11/05/14 Bessy Yates APRN.VALUE STREAM MANAGER [address] [place] [address] Construction Laborer Family Medicine 05/28/24 Gary Odell APRN.VALUE STREAM MANAGER [address] [place] [address] Construction Laborer Family Medicine 06/06/24 Converting Technician Relationship Specialty Start Date End Date Kenn Beauchamp MD [address] [place] [address] PCP - General Family Medicine 11/05/14 Bessy Yates APRN.VALUE STREAM MANAGER [address] [place] [address] Construction Laborer Family Medicine 05/28/24 Gary Odell APRN.VALUE STREAM MANAGER [address] [place] [address] Construction Laborer Family Medicine 06/06/24 Converting Technician Relationship Specialty Start Date End Date Kenn Beauchamp MD [address] [place] [address] PCP - General Family Medicine 11/05/14 Bessy Yates APRN.VALUE STREAM MANAGER [address] [place] [address] [facility] Gary Odell APRN.VALUE STREAM MANAGER [address] [place] [address] [facility] Converting Technician Relationship Specialty Start Date End Date Kenn Beauchamp MD [address] [place] [address] PCP - General Family Medicine 11/05/14 Bessy Yates APRN.VALUE STREAM MANAGER [address] [place] [address] [facility]/24 Gary Odell APRN.VALUE STREAM MANAGER [address] [place] [address] [facility] 06/06/24 Team Status: Active Member Role Status Dates Dr. Kenn Beauchamp MD Primary Care Provider Active Team Status: Inactive Member Role Status Dates Dr. Kenn Beauchamp MD Primary Care Provider Active Start: July 10, 2024 End: July 10, 2024 Dr. Tyler Singh MD Attending Provider Active Start: July 10, 2024 End: July 10, 2024 Dr. Tyler Singh MD Referring Provider Active Start: July 10, 2024 End: July 10, 2024 Team Status: Inactive Member Role Status Dates Dr. Kenn Beauchamp MD Primary Care Provider Active Start: August 04, 2024 End: August 04, 2024 Dr. Tyler Singh MD Attending Provider Active Start: August 04, 2024 End: August 04, 2024 Dr. Tyler Singh MD Referring Provider Active Start: August 04, 2024 End: August 04, 2024 Team Status: Active Member Role Status Dates Dr. Kenn Beauchamp MD Primary Care Provider Active Start: August 04, 2024 Dr. Alyssa Isaac MD Attending Provider Activ e Start: August 04, 2024 Team Status: Inactive Member Role Status Dates Dr. Kenn Beauchamp MD Primary Care Provider Active Start: August 07, 2024 End: August 07, 2024 Dr. Tyler Singh MD Attending Provider Active Start: August 07, 2024 End: August 07, 2024 Dr. Tyler Singh MD Referring Provider Active Start: August 07, 2024 End: August 07, 2024 Team Status: Inactive Member Role Status Dates Dr. Kenn Beauchamp MD Primary Care Provider Active Start: August 18, 2024 End: August 18, 2024 Dr. Kenn Beauchamp MD Referring Provider Active Start: August 18, 2024 End: August 18, 2024 Natali Schumacher PA, PA Attending Provider Active Start: August 18, 2024 End: August 18, 2024 Team Status: Inactive Member Role Status Dates Dr. Kenn Beauchamp MD Primary Care Provider Active Start: August 31, 2024 End: August 31, 2024 Dr. Tyler Singh MD Attending Provider Active Start: August 31, 2024 End: August 31, 2024 Dr. Tyler Singh MD Referring Provider Active Start: August 31, 2024 End: August 31, 2024 Natali Schumacher PA, PA Other Provider Active Start: August 31, 2024 End: August 31, 2024 Team Status: Inactive Member Role Status Dates Dr. Kenn Beauchamp MD Primary Care Provider Active Start: September 14, 2024 End: September 14, 2024 Natali Schumacher PA, PA Attending Provider Active Start: September 14, 2024 End: September 14, 2024 Natali Schumacher PA, PA Referring Provider Active Start: September 14, 2024 End: September 14, 2024 Team Status: Active Member Role Status Dates Dr. Kenn Beauchamp MD Primary Care Provider Active Start: September 14, 2024 Natali Schumacher PA, PA Referring Provider Active Start: September 14, 2024 Natali PAULINO, PA Other Provider Active Start: September 14, 2024 Dr. Tom Varela MD Attending Provider Active S tart: September 14, 2024 Converting Technician Relationship Specialty Start Date End Date Kenn Beauchamp MD [address] [place] [address] PCP - General Family Medicine 11/05/14 Bessy Yates, APPLE CHECKER.VALUE STREAM MANAGER [address] [place] [address] Construction Laborer Family Medicine 05/28/24 Gary Odell APRN.VALUE STREAM MANAGER [address] [place] [address] Construction Laborer [facility] Medicine 06/06/24 Converting Technician Relationship Specialty Start Date End Date Kenn Beauchamp MD [address] [place] [address] PCP - General Family Medicine 11/05/14 Gary Odell, [employer] STREAM MANAGER [address] [place] [address] Construction Laborer Family Medicine 06/06/24 Team Status: Inactive Member Role Status Dates Dr. Kenn Beauchamp MD Primary Care Provider Active Start: November 16, 2024 End: November 16, 2024 Dr. Kenn Beauchamp MD Referring Provider Active Start: November 16, 2024 End: November 16, 2024 Natali PAULINO, PA Attending Provider Active Start: November 16, 2024 End: November 16, 2024 Team Status: Inactive Member Role Status Dates Dr. Kenn Beauchamp MD Primary Care Provider Active Start: November 16, 2024 End: November 16, 2024 Natali PAULINO, PA Attending Provider Active Start: November 16, 2024 End: November 16, 2024 Natali PAULINO, PA Referring Provider Active Start: November 16, 2024 End: November 16, 2024 Converting Technician Relationship Specialty Start Date End Date Kenn Beauchamp MD [address] [place] [address] PCP - General Family Medicine 11/05/14 Bessy Yates APRN.VALUE STREAM MANAGER [address] [place] [address] Construction Laborer Family [facility] 05/28/24 11/01/24 Gary Odell APRN.VALUE STREAM MANAGER [address] [place], [place] [address] [facility] 06/06/24 Goals (unrecognized section and content) Goals may be documented in a n alternate sectionGoals may be documented in an alternate sectionGoals may be documented in an alternate sectionGoals may be documented in an alternate sectionGoals may be documented in an alternate sectionGoals may be documented in an alternate section FOR RECORDS PERTAINING TO PATIENTS WHO ARE OR HAVE BEEN ENROLLED IN A CHEMICAL DEPENDENCY/SUBSTANCEABUSE PROGRAM, SOME INFORMATION MAY BE OMITTED. This clinical summary was aggregated from multiple sources. Caution should be exercised in using it in the provision of clinical care. This summary normalizes information from multiple sources, and as a consequence, information in this document may materially change the coding, format and clinical context of patient data. In addition, data may be omitted in some cases. CLINICAL DECISIONS SHOULD BE BASED ON THE PRIMARY CLINICAL RECORDS. [employer] provides no warranty or guarantee of the accuracy or completeness of information in this document.
--- NOTE | 2025-01-29 09:45 | CL.D_ITS ---
Patient Name: CHRIS OREILLY Study Date: 12/12/2024 Performing: Tom Varela MD Ht: 67 inches 170.18 cm : 1945 Wt: 203.99 lbs 92.53 kg Age: 79 Gender: female BSA: 2.04 PROCEDURE(S) PERFORMED [id number]-([id number])[facility] CLINICAL PROFILE AND INDICATIONS Indications: Suspected CAD Heart Failure: None Stress/Imaging Date: 08/15/24 CAD Presentations: Stable angina. CONCLUSIONS Normal coronary arteries RECOMMENDATIONS Medical therapy DESCRIPTION OF PROCEDURE The patient arrived to the procedure lab. The risks and benefits of the procedure as well as a full description of our services here and current unavailability of surgical backup were fully explained to the patient and/or their significant other prior to the catheterization. The Timeout was completed, verifying the correct patient and procedure. The patient's procedural site was prepped and draped in the usual fashion. Local anesthetic was given subcutaneously to right radial region with Lidocaine 2%. Using a modified Seldinger technique, arterial access was obtained via the right radial artery, a 6Fr sheath was inserted. Left Coronary Artery selective angiography was performed in multiple views using a 5 Fr. 4.0 [place] catheter. Right Coronary Artery selective angiography was then performed in multiple views using a 5 Fr. JR 5 catheter.The arterial sheath was pulled and a TR Band was applied for hemostasis 8 ml of air CORONARY ANGIOGRAPHY DOMINANCE: Right Dominant LEFT HEART ASSESSMENT Left Ventricular Ejection Fraction: by Echo 65 % Normal LV wall motion Normal Left Ventricular systolic function LEFT MAIN: Angiographically normal LEFT ANTERIOR DESCENDING ARTERY: Angiographically normal CIRCUMFLEX ARTERY: Angiographically normal RIGHT CORONARY ARTERY: Angiographically normal COMPLICATIONS No Complications PROCEDURE MEDICATIONS Versed 1 mg IV Versed 1 mg IV Oxygen: 2 L/min via nasal cannula Aspirin (325mg) 1 Tabs PO @ 12/12/2024 07:29:54 Heparin given IA 12/12/2024 08:23:24 Verapamil 2.5mg, Ntg 100mcgs, 3000 units of Heparin given IA 12/12/2024 08:23:24 SUMMARY OF HEMODYNAMIC DATA Time AIR REST ECG 07:28:58 AO 138/38 (42) SA 08:27:42 AO 113/61 (86) 08:27:55 AIR REST 09:02:28 Signed By Tom Varela MD On 12/12/2024 09:03:22 Tom Varela MD
== END 2024-12-12 10:35 | disposition home or self-care (01) ==
PROVIDERS: PCP Family Medicine; Referring Provider Internal Medicine Cardiovascular Disease; Visit Provider Internal Medicine Cardiovascular Disease
DX: I25.118 Atherosclerotic heart disease of native coronary artery with other forms of angina pectoris (principal); I27.21 Secondary pulmonary arterial hypertension; G47.33 Obstructive sleep apnea (adult) (pediatric); I10 Essential (primary) hypertension; E03.9 Hypothyroidism, unspecified; E78.5 Hyperlipidemia, unspecified; E66.3 Overweight; Z68.31 Body mass index [BMI] 31.0-31.9, adult; Z79.899 Other long term (current) drug therapy; Z79.51 Long term (current) use of inhaled steroids
CPT/HCPCS: 93454; 99152; 99153; Q9967; C1769; C1894